=== PATIENT | male | born 1965 | race Caucasian/White ===

== ENCOUNTER 2024-08-08 10:00 | Emergency (ER) | payer MEDICARE, MEDICAID, SELFPAY ==
[2024-08-08] VITALS (15 sets, daily range): BP systolic 135–175; BP diastolic 59–89; PULSE 64–77; RESP 15–21; TEMP 36.6–37; O2SAT 93–100; BMI 43.6
[2024-08-08 10:27] LABS: Basophils % (Auto) 0 % (0-2.5); Eosinophils # (Auto) 0.1 Thou/mm3 (0.0-0.5); Eosinophils % (Auto) 2 % (0-10); Immature Granulocytes % (Auto) 0 % (0-0); Immature Granulocytes Auto 0.03 Thou/mm3 (0.00-0.00); Lymphocytes # (Auto) 0.7 Thou/mm3 (1.0-4.8); Lymphocytes % (Auto) 10 % (10-50); Mean Corpuscular HGB Conc 33.9 g/dl (31.0-37.0); Mean Corpuscular Hemoglobin 31.8 pg (25.0-35.0); Mean Corpuscular Volume 94 fL (80-100); Monocytes # (Auto) 0.4 Thou/mm3 (0.0-0.8); Monocytes % (Auto) 6 % (0-12); Neutrophils % (Auto) 82 % (37-80); Nucleated Red Blood Cell % 0 /100 WBC (0); Platelet Count 82 Thou/mm3 (140-440); Red Blood Count 2.01 Miln/mm3 (4.50-5.90); White Blood Count 7.3 Thou/mm3 (3.8-10.6)
[2024-08-08 10:53] LABS: Alanine Aminotransferase < 7 U/L (10-49); Albumin, Serum 3.7 gm/dL (3.5-5.0); Alkaline Phosphatase 95 U/L (46-116); Anion Gap 11 (7-16); Aspartate Amino Transferase < 8 U/L (0-34); BUN/Creatinine Ratio 8 Ratio (12-20); Bilirubin,Total 0.5 mg/dL (0.3-1.2); Blood Urea Nitrogen 62 mg/dL (9-23); Calcium 8.9 mg/dL (8.3-10.6); Calcium (Corrected) 9.1 mg/dL (8.5-10.1); Carbon Dioxide 24.2 mMol/L (20.0-31.0); Chloride 98 mMol/L (98-107); Creatinine (Component) 8.1 mg/dL (0.6-1.3); Estimated Creatinine Clearance 15.6 mL/min (>60); Globulin 3.8 gm/dL (2.3-3.5); Glucose 99 mg/dL (74-106); Osmolality,Calculated 283 (275-295); Potassium 5.1 mMol/L (3.4-5.1); Sodium 133 mMol/L (136-145); Total Protein 7.5 gm/dL (5.7-8.2); eGFR 7 See Note
[2024-08-08 10:59] LABS: Hematocrit 18.9 % (41.0-53.0)
[2024-08-08 11:00] LABS: Hemoglobin 6.4 g/dL (13.5-16.0)
--- NOTE | 2024-08-08 13:14 | EDNOTE_ITS ---
ED General RME/HPI General Chief complaint: General Adult/Misc Complain Stated complaint: NEEDS BLOOD TRANSFUSION Time Seen by Provider: 08/08/24 10:03 Arrival date/time: 08/08/24 10:00 RME / HPI RME / HPI narrative: 59-year-old male history of end-stage renal disease on dialysis Wednesdays and Fridays, who has weekly laboratory testing due to decreasing hemoglobins presenting to the emergency department with a need for a blood transfusion . His last blood tests at the end of last week showed a low hemoglobin therefore now he reports to the emergency department. He otherwise denies chest pain, shortness of breath. He denies generalized weakness. He states that Dr. oCtton has been watching his blood levels very closely and is requesting a status call during his visit today while he is getting transfused. He denies any active bleeding. He denies bloody or melanotic stools. He denies vomiting. Related Data Home Medications ?Medication ?Instructions ?Recorded ?Confirmed diphenhydramine HCl 25 mg capsule 25 mg PO TID PRN Itching 08/20/22 03/31/24 (Benadryl) vitamin B comp no.3-folic acid 1 1 tab PO QDAY 08/20/22 03/31/24 mg-vit C 60 mg-biotin 300 mcg tablet ([facility] Rx) sucroferric oxyhydroxide 500 mg 500 mg PO QID 10/03/22 03/31/24 chewable tablet (Velphoro) carvedilol 12.5 mg tablet 12.5 mg PO BID 08/04/23 03/31/24 furosemide 40 mg tablet 40 mg PO QDAY 08/04/23 03/31/24 levothyroxine 100 mcg tablet 112 mcg PO DAILY 08/04/23 03/31/24 Previous Rx's ?Medication ?Instructions ?Recorded vitamin B complex-vitamin C-folic 1 tab PO QDAY #30 tabs 01/11/23 acid 0.8 mg tablet (Mere-Martín) Allergies Allergy/AdvReac Type Severity Reaction Status Date / Time adhesive tape Allergy Severe Rash Verified 08/08/24 10:01 Review of Systems Review of Systems Systems Reviewed: All systems reviewed, normal except as documented ED Exam Narrative Physical exam: GENERAL APPEARANCE: AxOx4, generally well-appearing, no acute distress, pale HEENT: NC, AT. MMM. EOMI, clear conjunctiva, oropharynx clear. NECK: Supple without lymphadenopathy. No stiffness or restricted ROM. HEART: Normal rate and regular rhythm, normal S1/S1, no m/r/g LUNGS: CTAB, moving air well. No crackles or wheezes are heard. ABDOMEN: Soft, nontender, nondistended with good bowel sounds heard. BACK: No midline C/T/L spine pain or deformity, No CVAT, no obvious deformity. EXTREMITIES: Without cyanosis, clubbing or edema. MUSCULOSKELETAL: FROM of all major joints, no chest tenderness NEUROLOGICAL: Grossly nonfocal. Alert and oriented, moving all 4 extremities. CN not formally tested but appear grossly intact. Observed to ambulate with normal gait. Skin: Warm and dry without any rash. Course Quality Measures none Orders Category Date Time Status Insert IV NOW Care 08/08/24 10:04 Active Transfuse,blood/blood products NOW Care 08/08/24 12:02 Active CBC Stat Lab 08/08/24 10:10 Completed Comprehensive Metabolic Panel Stat Lab 08/08/24 10:10 Completed Type and Screen Stat Lab 08/08/24 10:10 Results prbc [Red Blood Cells] Stat Lab 08/08/24 10:10 Results Vital Signs Vital signs: Vital Signs Temperature 98.3 F 08/08/24 10:30 Pulse Rate 75 08/08/24 10:30 Respiratory Rate 19 08/08/24 10:30 Blood Pressure 140/60 H 08/08/24 10:30 Pulse Oximetry (%) 98 08/08/24 10:30 Oxygen Delivery Method Room Air 08/08/24 10:30 SpO2 98% on room air, not hypoxic MDM Patient data External records reviewed:: [facility] previous records Clinical information provided by:: patient Social determinants that could affect healthcare access:: none Patient has the following chronic illnesses:: End-stage renal disease How is presenting disease/condition affected by chronic disease/condition?: c aused by Evaluation data The following diagnostics were reviewed and interpreted by me:: lab results Lab and/or radiology exams considered but not ordered:: None Interpretation Summary: None Medications Medications considered but not ordered:: None Medication administrations:: None Consultations Consultation(s) initiated? (list below): Yes Consultation #1 (Physician, Specialty, Details): Nephrology, Dr. Cotton, case was discussed at length laboratory results. We agree to transfusing 2 units of PRBC for now. She will expand workup this week to include other testing for anemia. Time: 13:00 Diagnosis Differential Diagnosis ED Complaint MDM: Anemia chronic disease, anemia, end- stage renal disease Most likely diagnosis given after review of the tests above:: See below Admission Indicated Admission indicated?: not indicated Explain why admission is indicated or not indicated:: As per narrative Admission Request Was there a request for admission?: No Disposition Plan Disposition Plan: Discharge Discharge Attestation Discharge Attestation: The patient and all family members were given an opportunity to ask questions and understood the discharge instructions. Discharge instructions specifically effects, indications for sooner follow up or return to the emergency department, and the expected course of current diagnosis. Patient condition: Stable Medical Decision Making MDM Narrative MDM Narrative: Mr. Weaver is a clinically well-appearing gentleman, with stable vital signs, who has chronic anemia in the setting of end-stage renal disease. He has been requiring transfusions on a more regular basis these last several months including the last transfusion approximately 10 days ago. Today his hemoglobin was critically low at 6.4 and will require transfusion again. Case was discussed at length with his baby doctor who is also his primary care physician and agrees to 2 units of PRBCs, he will need to contact his dialysis center tomorrow in order to schedule dialysis as he will miss today's. Otherwise chemistries show no acute electrolyte abnormalities requiring a emergent dialysis. He is asymptomatic with normal oxygen saturation, and he is laying flat resting comfortably, there is no signs of fluid overload as well to require emergent dialysis. Patient was transfused 2 units PRBCs without event here in the emergency department now stabilizing him for outpatient follow-up. Differential Diagnosis Differential Diagnosis: Anemia chronic disease, anemia, end-stage renal disease Lab Data 08/08/24 10:10 08/08/24 10:10 Labs: Lab Results 08/08/24 Range/Units 10:10 WBC 7.3 (3.8-10.6) Thou/mm3 RBC 2.01 L (4.50-5.90) Miln/mm3 Hgb 6.4 L* (13.5-16.0) g/dL Hct 18.9 L* (41.0-53.0) % MCV 94 (80-100) fL MCH 31.8 (25.0-35.0) pg MCHC 33.9 (31.0-37.0) g/dl RDW Std Deviation 63.0 H (35.1-43.9) fL Plt Count 82 L (140-440) Thou/mm3 Neut % (Auto) 82 H (37-80) % Lymph % (Auto) 10 (10-50) % [place] % (Auto) 6 (0-12) % Eos % (Auto) 2 (0-10) % Baso % (Auto) 0 (0-2.5) % Neut # (Auto) 6.0 (1.8-7.7) Thou/mm3 Lymph # (Auto) 0.7 L (1.0-4.8) Thou/mm3 [place] # (Auto) 0.4 (0.0-0.8) Thou/mm3 Eos # (Auto) 0.1 (0.0-0.5) Thou/mm3 Baso # (Auto) 0.0 (0.0-0.2) Thou/mm3 Immature Gran # (Auto) 0.03 H (0.00-0.00) Thou/mm3 Absolute Nucleated RBC 0.00 (0.00-0.00) Thou/mm3 Immature Gran % 0 (0-0) % Nucleated RBC % 0 (0) /100 WBC Sodium 133 L (136-145) mMol/L Potassium 5.1 (3.4-5.1) mMol/L Chloride 98 (98-107) mMol/L Carbon Dioxide 24.2 (20.0-31.0) mMol/L Anion Gap 11 (7-16) BUN 62 H (9-23) mg/dL Creatinine 8.1 H* (0.6-1.3) mg/dL Estim Creat Clear Calc 15.6 L (>60) mL/min eGFR 7 L* (60 - ) See Note BUN/Creatinine Ratio 8 L (12-20) Ratio Glucose 99 (74-106) mg/dL Calculated Osmolality 283 (275-295) Calcium 8.9 (8.3-10.6) mg/dL Corrected Calcium 9.1 (8.5-10.1) mg/dL Total Bilirubin 0.5 (0.3-1.2) mg/dL AST < 8 (0-34) U/L ALT < 7 L (10-49) U/L Alkaline Phosphatase 95 (46-116) U/L Total Protein 7.5 (5.7-8.2) gm/dL Albumin 3.7 (3.5-5.0) gm/dL Globulin 3.8 H (2.3-3.5) gm/dL Albumin/Globulin Ratio 1.0 L (1.2-2.2) Blood Type O Positive Antibody Screen NEGATIVE Crossmatch See Detail Blood Bank Wristband ID Yes Critical Care Time Critical Care Time Critical Care Time: Yes Total Critical Care Time (min.): 35 Attestation: Excluding billable procedures for the rapid response, analysis, management, deliberation with specialist, treatment, and documentation to vent the very possible risk of cardiovascular and or metabolic decompensation and or . Discharge Plan Plan Patient Disposition: HOME (Self Care) Prescriptions/Referrals Prescriptions/Med Rec: No Action furosemide 40 mg Tablet 40 mg PO QDAY carvedilol 12.5 mg Tablet 12.5 mg PO BID Rx Instructions: must administer with a meal/food levothyroxine 100 mcg tablet 112 mcg PO DAILY diphenhydramine HCl [Benadryl] 25 mg Capsule 25 mg PO TID PRN (Reason: Itching) Mere-Martín Rx 1-60-300 mg-mg-mcg tablet 1 tab PO QDAY Patient Comments: TAKE 1 TABLET BY MOUTH DAILY Velphoro 500 mg tablet,chewable 500 mg PO QID Patient Comments: CHEW AND SWALLOW 1 TABLET BY MOUTH FOUR TIMES DAILY WITH FOOD Mere-Martín 0.8 mg Tablet 1 tab PO QDAY Qty: 30 0RF Referrals: Shad Cotton MD [Primary Care Provider] - In 1 week Problem List Clinical Impression: Anemia, ESRD on hemodialysis, Thrombocytopenia Patient/Caregiver Discharge Instructions Education Materials: ED Anemia Type Not Specified, ED Chronic Kidney Disease (CKD) Additional Instructions: Dr. Cotton would like you to contact your dialysis center tomorrow to squeeze you in for dialysis. From there you can continue your normal schedule dialysis as well on Thursday. You can return to the emergency department sooner if symptoms worsen or if you notice any new, concerning issues. Print Language: Frisian Stand Alone Forms: Bridget Award Info., Patient Portal Info Letter
== END 2024-08-08 21:05 | disposition home or self-care (01) ==
PROVIDERS: Nurse Practitioner Primary Care; Emergency Provider Emergency Medicine; PCP Internal Medicine
DX: N18.6 End stage renal disease (principal); D63.1 Anemia in chronic kidney disease; D69.6 Thrombocytopenia, unspecified; Z99.2 Dependence on renal dialysis
CPT/HCPCS: 36415; 36430; 80053; 85025; 85610; 85730; 86850; 86900; 86901; 86921; 86922; 99291; P9016

== ENCOUNTER 2024-08-25 19:35 | Emergency (ER) | payer MEDICARE, MEDICAID, SELFPAY ==
[2024-08-25 19:36] VITALS: BMI 40.4
--- NOTE | 2024-08-25 20:46 | PD.EDRME ---
Rapid Medical Screening Exam [facility] Arrival date/time: 08/25/24 19:35 59M with history of ESRD and hypothyroidism presents to ED needing blood transfusion. Outpatient Hgb was 5.8. Chief Complaint: Recheck/Abnormal Lab/Rx Vital signs: Vital Signs Temperature 98.4 F 08/25/24 20:49 Pulse Rate 70 08/25/24 20:49 Respiratory Rate 18 08/25/24 20:49 Blood Pressure 138/68 H 08/25/24 20:49 Pulse Oximetry (%) 96 08/25/24 20:49 Oxygen Delivery Method Room Air 08/25/24 20:49
[2024-08-25 20:49] VITALS: BP 138/68; PULSE 70; RESP 18; TEMP 36.9; O2SAT 96
[2024-08-25 21:18] LABS: Basophils % (Auto) 0 % (0-2.5); Eosinophils # (Auto) 0.1 Thou/mm3 (0.0-0.5); Eosinophils % (Auto) 3 % (0-10); Immature Granulocytes % (Auto) 0 % (0-0); Immature Granulocytes Auto 0.01 Thou/mm3 (0.00-0.00); Lymphocytes # (Auto) 1.1 Thou/mm3 (1.0-4.8); Lymphocytes % (Auto) 20 % (10-50); Mean Corpuscular HGB Conc 34.5 g/dl (31.0-37.0); Mean Corpuscular Volume 93 fL (80-100); Monocytes # (Auto) 0.3 Thou/mm3 (0.0-0.8); Monocytes % (Auto) 6 % (0-12); Neutrophils # (Auto) 3.7 Thou/mm3 (1.8-7.7); Neutrophils % (Auto) 70 % (37-80); Nucleated Red Blood Cell % 0 /100 WBC (0); Platelet Count 86 Thou/mm3 (140-440); RDW Standard Deviation 61.1 fL (35.1-43.9); Red Blood Count 1.78 Miln/mm3 (4.50-5.90); White Blood Count 5.2 Thou/mm3 (3.8-10.6)
[2024-08-25 21:45] LABS: Alanine Aminotransferase < 7 U/L (10-49); Albumin, Serum 3.8 gm/dL (3.5-5.0); Albumin/Globulin Ratio 1.1 (1.2-2.2); Alkaline Phosphatase 147 U/L (46-116); Anion Gap 8 (7-16); Aspartate Amino Transferase 10 U/L (0-34); BUN/Creatinine Ratio 6 Ratio (12-20); Bilirubin,Total 0.4 mg/dL (0.3-1.2); Blood Urea Nitrogen 28 mg/dL (9-23); Calcium 7.9 mg/dL (8.3-10.6); Calcium (Corrected) 8.1 mg/dL (8.5-10.1); Carbon Dioxide 32.3 mMol/L (20.0-31.0); Chloride 93 mMol/L (98-107); Creatinine (Component) 4.9 mg/dL (0.6-1.3); Estimated Creatinine Clearance 24.8 mL/min (>60); Globulin 3.6 gm/dL (2.3-3.5); Glucose 104 mg/dL (74-106); Osmolality,Calculated 271 (275-295); Sodium 133 mMol/L (136-145); Total Protein 7.4 gm/dL (5.7-8.2); eGFR 13 See Note
[2024-08-25 21:46] LABS: Hemoglobin 5.7 g/dL (13.5-16.0)
[2024-08-25 21:47] LABS: Hematocrit 16.5 % (41.0-53.0)
[2024-08-26] VITALS (21 sets, daily range): BP systolic 104–147; BP diastolic 48–72; PULSE 62–69; RESP 12–19; TEMP 2.6–37.1; O2SAT 92–100
--- NOTE | 2024-08-26 02:46 | PD.EDADULT ---
ED General RME/HPI General Chief complaint: Recheck/Abnormal Lab/Rx Stated complaint: abnormal labs, send by PCP Arrival date/time: 08/25/24 19:35 Limitations: no limitations RME / HPI RME / HPI narrative: 08/25/24 19:35 59M with history of ESRD and hypothyroidism presents to ED needing blood transfusion. Outpatient Hgb was 5.8. ------- Dr. Encinas's Main ED Evaluation: 59yo male with a history of ESRD on HD (M/W/F), chronic anemia Related Data Home Medications ?Medication ?Instructions ?Recorded ?Confirmed diphenhydramine HCl 25 mg capsule 25 mg PO TID PRN Itching 08/20/22 03/31/24 (Benadryl) vitamin B comp no.3-folic acid 1 1 tab PO QDAY 08/20/22 03/31/24 mg-vit C 60 mg-biotin 300 mcg tablet ([facility]re[facility] Rx) sucroferric oxyhydroxide 500 mg 500 mg PO QID 10/03/22 03/31/24 chewable tablet (Velphoro) carvedilol 12.5 mg tablet 12.5 mg PO BID 08/04/23 03/31/24 furosemide 40 mg tablet 40 mg PO QDAY 08/04/23 03/31/24 levothyroxine 100 mcg tablet 112 mcg PO DAILY 08/04/23 03/31/24 Previous Rx's ?Medication ?Instructions ?Recorded vitamin B complex-vitamin C-folic 1 tab PO QDAY #30 tabs 01/11/23 acid 0.8 mg tablet (Mree-Martín) Allergies Allergy/AdvReac Type Severity Reaction Status Date / Time adhesive tape Allergy Severe Rash Verified 08/08/24 10:01 Review of Systems Review of Systems Systems Reviewed: All systems reviewed, normal except as documented Past Medical History Past Medical History NEUROLOGIC: Positive Neurological Disorders and Peripheral Neuropathy; Negative Cerebrovascular Accident, Transient Ischemic Attacks (TIA), Dementia, Alzheimer's Disease, Parkinson's Disease, Brain Tumor, Meningitis, Seizures, Epilepsy, Multiple Sclerosis, Cerebral Palsy, Amyotrophic Lateral Sclerosis (ALS/Carmela Gehrig's), Guillain-[place] Syndrome, Spina Bifida, Paralysis, Fermin's Palsy, Subdural Hematoma, Migraine, Head Trauma, Spinal Cord Injury or Traumatic Brain Injury CARDIAC: Positive Cardiac Disorders and Hypotension; Negative Myocardial Infarction, Cardiac Arrhythmia, Atrial Fibrillation, Angina, Heart Murmur, Coronary Artery Disease, Atherosclerotic Heart Disease, Peripheral Vascular Disease, Hypercholesterolemia, Aneurysm, Congestive Heart Failure, Congenital Heart Disease, Valvular Heart Disease, Rheumatic Fever, Cardiomyopathy, Pericarditis, Cellulitis, Deep Vein Thrombosis, Hypertension or Varicose Veins RESPIRATORY: Positive Sleep Apnea; Negative Chronic Obstructive Pulmonary Disease (COPD), Asthma, Bronchitis, Emphysema, Pneumonia, Pulmonary Fibrosis, Cystic Fibrosis, Tuberculosis, Pulmonary Embolism or Pulmonary Edema GASTROINTESTINAL: Positive Gastrointestinal Disorders, Gastrointestinal Bleed, Ulcer and Obesity; Negative Hepatitis, Cirrhosis, Pancreatitis, Celiac Disease, Gall Bladder Disease, Esophageal Varices, Kc's Esophagus, Colitis, Ulcerative Colitis, Diverticulitis, Diverticulosis, Colorectal Cancer, Irritable Bowel, Crohn's Disease, Obstructive Bowel, Hiatal Hernia, Hemorrhoids or Gastroesophageal Reflux Disease GENITOURINARY: Positive Genitourinary Disorders, Renal Disease and Dialysis; Negative Kidney Stones, Polycystic Kidney Disease, Neurogenic Bladder, Inguinal Hernia, Prostate Cancer or Benign Prostatic Hyperplasia REPRODUCTIVE: Negative Breast Cancer, Genital Herpes, Gonorrhea, Syphilis or Testicular Cancer MUSCULOSKELETAL: Negative Musculoskeletal Disorders, Muscular Dystrophy, Myasthenia Gravis, Marfan's Syndrome, Bone Cancer, Arthritis, Rheumatoid Arthritis, Osteoporosis, Gout, Scoliosis, Carpal Tunnel Syndrome, Fibromyalgia, Fractures, Degenerative Joint Disease, Osteomyelitis or Poliovirus ENT: Negative Cataracts, Glaucoma, Blind, Retinal Detachment, Macular Degeneration, Ear Infection, Deafness, Head Trauma or Eye Prosthesis ENDOCRINE: Positive Endocrine Disorders; Negative Diabetes Mellitus Type 1, Diabetes Mellitus Type 2, Hypoglycemia, Óscar's Syndrome, Noble's Disease, Hyperthyroidism, Hypothyroidism, Parathyroid Disease, Pituitary Disease, Systemic Lupus Erythematosus, Syndrome of Inappropriate Antidiuretic Hormone (SIADH), Adrenal Disease or Graves' Disease HEMATOLOGIC: Positive Blood Disorders and Anemia; Negative Leukemia, Hemophilia, Thalassemia, Sickle Cell Disease or Clotting Problems PSYCHO/SOCIAL: Positive Depression and Anxiety; Negative Psychiatric Problems, Schizophrenia, Recreational Drug Use, Bipolar Disorder, Behavior Problems, Self-Mutilation, Attention Deficit Disorder, Attention Deficit Hyperactivity Disorder, Depression, Post Traumatic Stress Disorder or Eating Disorder OTHER HISTORY: Positive Blood Transfusions and Chicken Pox; Negative Hospitalization, Autoimmune Disease, Down Syndrome, Autism, Developmental Delay, Shingles, Falls, Blood Transfusion Reaction, Anesthesia Reactions, Organ Transplant, Chemotherapy, Radiation Therapy, Hyperbaric Therapy, MRSA, VRSA, Vancomycin-Resistant Enterococci, Human Immunodeficiency Virus (HIV), Measles, Mumps, Rubella (Chilean Measles), Pertussis, Clostridium Difficile, Cancer, Breast Cancer, Cervical Cancer, Colorectal Cancer, Lung Cancer, Ovarian Cancer, Prostate Cancer or Testicular Cancer Family History FAMILY HISTORY: Positive Family Psychiatric Problems and Family Respiratory Disorders; Negative Family Cardiac Disorders, Family Gastrointestinal Problems, Family Cancer, Family Surgery or Family Anesthesia Reaction Surgical History SURGICAL: Positive Tonsillectomy; Negative Cardiac Surgery, Open Heart Surgery, Coronary Artery Bypass Graft, Valve Replacement, Coronary Stent, Cardiac Catheterization, Pacemaker, Angiogram, Auto Implanted Cardiovert Defib, Carotid Endarterectomy, Endocrine Surgery, Thyroidectomy, Ear Surgery, Tympanostomy Tube, Eye Surgery, Nose Surgery, Oral Surgery, Adenoidectomy, Cochlear Implant, Corneal Transplant, Throat Surgery, Abdominal Surgery, Tracheostomy, Gastric Bypass Surgery, Gastrostomy, Bowel Surgery, Nephrectomy, Transurethral Resection, Joint Replacement, Amputation, Open Reduction Internal Fixation, Arthroscopy, Neurologic Surgery, Brain Shunt, Vasectomy or Organ Transplant Social History SMOKING STATUS: Never smoker ED Exam General Limitations: Present no limitations General appearance: Present alert and in no apparent distress Head Head exam: Present atraumatic Eye Eye exam: Present normal appearance, PERRL and EOMI ENT ENT exam: Present normal exam, normal oropharynx and mucous membranes moist Neck Neck exam: Present normal inspection, full ROM and trachea midline Chest Chest inspection: Present normal inspection and symmetric chest wall rise Respiratory Respiratory exam: Present normal lung sounds bilaterally Cardiovascular Cardiovascular exam: Present regular rate, normal rhythm and normal heart sounds Abdominal Exam Abdominal exam: Present soft and normal bowel sounds Extremities Exam Extremities exam: Present normal inspection and full ROM Back Exam Back exam: Present normal inspection and full ROM Neurological Exam Neurological exam: Present alert, oriented X3 and CN II-XII intact Psychiatric Psychiatric exam: Present normal affect and normal mood Skin Skin exam: Present warm, dry, intact and normal color Course Quality Measures none Orders Category Date Time Status Insert IV NOW Care 08/25/24 20:46 Active CBC Stat Lab 08/25/24 21:01 Completed CMP [Comprehensive Metabolic Panel] Stat Lab 08/25/24 21:01 Completed Type and Screen Stat Lab 08/25/24 21:01 Results prbc [Red Blood Cells] Stat Lab 08/25/24 21:01 Results Vital Signs Vital signs: Vital Signs Temperature 98.4 F 08/25/24 20:49 Pulse Rate 70 08/25/24 20:49 Respiratory Rate 18 08/25/24 20:49 Blood Pressure 138/68 H 08/25/24 20:49 Pulse Oximetry (%) 96 08/25/24 20:49 Oxygen Delivery Method Room Air 08/25/24 20:49 Pulse ox is 96% on room air, which is normal according to my interpretation. [facility] Patient data External records reviewed:: [facility] previous records (Per chart review, patient was seen here on 08/05/24 for anemia.) Clinical information provided by:: patient Social determinants that could affect healthcare access:: none Patient has the following chronic illnesses:: ESRD on HD (M/W/F) How is presenting disease/condition affected by chronic disease/condition?: caused by Evaluation data The following diagnostics were reviewed and interpreted by me:: lab results Lab and/or radiology exams considered but not ordered:: none Interpretation Summary: RBCs are low at 1.78, HnH is low at 5.7/16.5, Creatinine is elevated at 4.9, according to my interpretation. Medications Medications considered but not ordered:: none Medical Decision Making Lab Data 08/25/24 21:01 08/25/24 21:01 Labs: Lab Results 08/25/24 Range/Units 21:01 WBC 5.2 (3.8-10.6) Thou/mm3 RBC 1.78 L* (4.50-5.90) Miln/mm3 Hgb 5.7 L* (13.5-16.0) g/dL Hct 16.5 L* (41.0-53.0) % MCV 93 (80-100) fL MCH 32.0 (25.0-35.0) pg MCHC 34.5 (31.0-37.0) g/dl RDW Std Deviation 61.1 H (35.1-43.9) fL Plt Count 86 L (140-440) Thou/mm3 Neut % (Auto) 70 (37-80) % Lymph % (Auto) 20 (10-50) % [place] % (Auto) 6 (0-12) % Eos % (Auto) 3 (0-10) % Baso % (Auto) 0 (0-2.5) % Neut # (Auto) 3.7 (1.8-7.7) Thou/mm3 Lymph # (Auto) 1.1 (1.0-4.8) Thou/mm3 [place] # (Auto) 0.3 (0.0-0.8) Thou/mm3 Eos # (Auto) 0.1 (0.0-0.5) Thou/mm3 Baso # (Auto) 0.0 (0.0-0.2) Thou/mm3 Immature Gran # (Auto) 0.01 H (0.00-0.00) Thou/mm3 Absolute Nucleated RBC 0.00 (0.00-0.00) Thou/mm3 Immature Gran % 0 (0-0) % Nucleated RBC % 0 (0) /100 WBC Sodium 133 L (136-145) mMol/L Potassium 4.0 (3.4-5.1) mMol/L Chloride 93 L (98-107) mMol/L Carbon Dioxide 32.3 H (20.0-31.0) mMol/L Anion Gap 8 (7-16) BUN 28 H (9-23) mg/dL Creatinine 4.9 H* (0.6-1.3) mg/dL Estim Creat Clear Calc 24.8 L (>60) mL/min eGFR 13 L* (60 - ) See Note BUN/Creatinine Ratio 6 L (12-20) Ratio Glucose 104 (74-106) mg/dL Calculated Osmolality 271 L (275-295) Calcium 7.9 L (8.3-10.6) mg/dL Corrected Calcium 8.1 L (8.5-10.1) mg/dL Total Bilirubin 0.4 (0.3-1.2) mg/dL AST 10 (0-34) U/L ALT < 7 L (10-49) U/L Alkaline Phosphatase 147 H (46-116) U/L Total Protein 7.4 (5.7-8.2) gm/dL Albumin 3.8 (3.5-5.0) gm/dL Globulin 3.6 H (2.3-3.5) gm/dL Albumin/Globulin Ratio 1.1 L (1.2-2.2) Blood Type O Positive Antibody Screen NEGATIVE Crossmatch See Detail Blood Bank Wristband ID Yes Discharge Plan Prescriptions/Referrals Prescriptions/Med Rec: No Action furosemide 40 mg Tablet 40 mg PO QDAY carvedilol 12.5 mg Tablet 12.5 mg PO BID Rx Instructions: must administer with a meal/food levothyroxine 100 mcg tablet 112 mcg PO DAILY diphenhydramine HCl [Benadryl] 25 mg Capsule 25 mg PO TID PRN (Reason: Itching) Mere-Martín Rx 1-60-300 mg-mg-mcg tablet 1 tab PO QDAY Patient Comments: TAKE 1 TABLET BY MOUTH DAILY Velphoro 500 mg tablet,chewable 500 mg PO QID Patient Comments: CHEW AND SWALLOW 1 TABLET BY MOUTH FOUR TIMES DAILY WITH FOOD Mere-Martín 0.8 mg Tablet 1 tab PO QDAY Qty: 30 0RF Referrals: Shad Cotton MD [Primary Care Provider] - In 1 week Patient/Caregiver Discharge Instructions Print Language: [place] Islander
--- NOTE | 2024-08-26 03:49 | EDNOTE_ITS ---
ED Recheck Abnl Lab Rx-RME/HPI General Chief Complaint: Recheck/Abnormal Lab/Rx Stated Complaint: abnormal labs, send by PCP Time Seen by Provider: 08/26/24 03:50 Arrival date/time: 08/25/24 19:35 59M with history of ESRD and hypothyroidism presents to ED needing blood transfusion. Patient is well-known to get frequent transfusions here. Outpatient Hgb was 5.8. Limitations: no limitations Related Data Home Medications ?Medication ?Instructions ?Recorded ?Confirmed diphenhydramine HCl 25 mg capsule 25 mg PO TID PRN Itching 08/20/22 03/31/24 (Benadryl) vitamin B comp no.3-folic acid 1 1 tab PO QDAY 08/20/22 03/31/24 mg-vit C 60 mg-biotin 300 mcg tablet ([facility] Rx) sucroferric oxyhydroxide 500 mg 500 mg PO QID 10/03/22 03/31/24 chewable tablet (Velphoro) carvedilol 12.5 mg tablet 12.5 mg PO BID 08/04/23 03/31/24 furosemide 40 mg tablet 40 mg PO QDAY 08/04/23 03/31/24 levothyroxine 100 mcg tablet 112 mcg PO DAILY 08/04/23 03/31/24 Previous Rx's ?Medication ?Instructions ?Recorded vitamin B complex-vitamin C-folic 1 tab PO QDAY #30 tabs 01/11/23 acid 0.8 mg tablet (Mere-Martín) Allergies Allergy/AdvReac Type Severity Reaction Status Date / Time adhesive tape Allergy Severe Rash Verified 08/08/24 10:01 Review of Systems Review of Systems Systems Reviewed: All systems reviewed, normal except as documented Constitutional Constitutional: Reports system reviewed and no additional complaints, except as documented, Denies fever(s) and Denies headache(s) ENT Ears, Nose, Mouth, and Throat: Denies disequilibrium and Denies headache(s) Cardiovascular Cardiovascular: Reports system reviewed and no additional complaints, except as documented, Denies chest pain and Denies dyspnea Respiratory Respiratory: Reports system reviewed and no additional complaints, except as documented, Denies cough and Denies dyspnea Gastrointestinal Gastrointestinal: Reports system reviewed and no additional complaints, except as documented, Denies abdominal pain, Denies nausea and Denies vomiting Neurologic Neurologic: Reports system reviewed and no additional complaints, except as documented, Denies confusion, Denies disequilibrium and Denies headache(s) Psychiatric Psychiatric: Denies confusion Past Medical History Past Medical History NEUROLOGIC: Positive Neurological Disorders and Peripheral Neuropathy; Negative Cerebrovascular Accident, Transient Ischemic Attacks (TIA), Dementia, Alzheimer's Disease, Parkinson's Disease, Brain Tumor, Meningitis, Seizures, Epilepsy, Multiple Sclerosis, Cerebral Palsy, Amyotrophic Lateral Sclerosis (ALS/Carmela Gehrig's), Guillain-[place] Syndrome, Spina Bifida, Paralysis, Fermin's Palsy, Subdural Hematoma, Migraine, Head Trauma, Spinal Cord Injury or Traumatic Brain Injury CARDIAC: Positive Cardiac Disorders and Hypotension; Negative Myocardial Infarction, Cardiac Arrhythmia, Atrial Fibrillation, Angina, Heart Murmur, Coronary Artery Disease, Atherosclerotic Heart Disease, Peripheral Vascular Disease, Hypercholesterolemia, Aneurysm, Congestive Heart Failure, Congenital Heart Disease, Valvular Heart Disease, Rheumatic Fever, Cardiomyopathy, Pericarditis, Cellulitis, Deep Vein Thrombosis, Hypertension or Varicose Veins RESPIRATORY: Positive Sleep Apnea; Negative Chronic Obstructive Pulmonary Disease (COPD), Asthma, Bronchitis, Emphysema, Pneumonia, Pulmonary Fibrosis, Cystic Fibrosis, Tuberculosis, Pulmonary Embolism or Pulmonary Edema GASTROINTESTINAL: Positive Gastrointestinal Disorders, Gastrointestinal Bleed, Ulcer and Obesity; Negative Hepatitis, Cirrhosis, Pancreatitis, Celiac Disease, Gall Bladder Disease, Esophageal Varices, Kc's Esophagus, Colitis, Ulcerative Colitis, Diverticulitis, Diverticulosis, Colorectal Cancer, Irritable Bowel, Crohn's Disease, Obstructive Bowel, Hiatal Hernia, Hemorrhoids or Gastroesophageal Reflux Disease GENITOURINARY: Positive Genitourinary Disorders, Renal Disease and Dialysis; Negative Kidney Stones, Polycystic Kidney Disease, Neurogenic Bladder, Inguinal Hernia, Prostate Cancer or Benign Prostatic Hyperplasia REPRODUCTIVE: Negative Breast Cancer, Genital Herpes, Gonorrhea, Syphilis or Testicular Cancer MUSCULOSKELETAL: Negative Musculoskeletal Disorders, Muscular Dystrophy, Myasthenia Gravis, Marfan's Syndrome, Bone Cancer, Arthritis, Rheumatoid Arthritis, Osteoporosis, Gout, Scoliosis, Carpal Tunnel Syndrome, Fibromyalgia, Fractures, Degenerative Joint Disease, Osteomyelitis or Poliovirus ENT: Negative Cataracts, Glaucoma, Blind, Retinal Detachment, Macular Degeneration, Ear Infection, Deafness, Head Trauma or Eye Prosthesis ENDOCRINE: Positive Endocrine Disorders; Negative Diabetes Mellitus Type 1, Diabetes Mellitus Type 2, Hypoglycemia, [place]'s Syndrome, Antwon's Disease, Hyperthyroidism, Hypothyroidism, Parathyroid Disease, Pituitary Disease, Systemic Lupus Erythematosus, Syndrome of Inappropriate Antidiuretic Hormone (SIADH), Adrenal Disease or Graves' Disease HEMATOLOGIC: Positive Blood Disorders and Anemia; Negative Leukemia, Hemophilia, Thalassemia, Sickle Cell Disease or Clotting Problems PSYCHO/SOCIAL: Positive Depression and Anxiety; Negative Psychiatric Problems, Schizophrenia, Recreational Drug Use, Bipolar Disorder, Behavior Problems, Self-Mutilation, Attention Deficit Disorder, Attention Deficit Hyperactivity Disorder, Depression, Post Traumatic Stress Disorder or Eating Disorder OTHER HISTORY: Positive Blood Transfusions and Chicken Pox; Negative Hospitalization, Autoimmune Disease, Down Syndrome, Autism, Developmental Delay, Shingles, Falls, Blood Transfusion Reaction, Anesthesia Reactions, Organ Transplant, Chemotherapy, Radiation Therapy, Hyperbaric Therapy, MRSA, VRSA, Vancomycin-Resistant Enterococci, Human Immunodeficiency Virus (HIV), Measles, Mumps, Rubella (Macedonian Measles), Pertussis, Clostridium Difficile, Cancer, Breast Cancer, Cervical Cancer, Colorectal Cancer, Lung Cancer, Ovarian Cancer, Prostate Cancer or Testicular Cancer Family History FAMILY HISTORY: Positive Family Psychiatric Problems and Family Respiratory Disorders; Negative Family Cardiac Disorders, Family Gastrointestinal Problems, Family Cancer, Family Surgery or Family Anesthesia Reaction Surgical History SURGICAL: Positive Tonsillectomy; Negative Cardiac Surgery, Open Heart Surgery, Coronary Artery Bypass Graft, Valve Replacement, Coronary Stent, Cardiac Catheterization, Pacemaker, Angiogram, Auto Implanted Cardiovert Defib, Carotid Endarterectomy, Endocrine Surgery, Thyroidectomy, Ear Surgery, Tympanostomy Tube, Eye Surgery, Nose Surgery, Oral Surgery, Adenoidectomy, Cochlear Implant, Corneal Transplant, Throat Surgery, Abdominal Surgery, Tracheostomy, Gastric Bypass Surgery, Gastrostomy, Bowel Surgery, Nephrectomy, Transurethral Resection, Joint Replacement, Amputation, Open Reduction Internal Fixation, Arthroscopy, Neuro logic Surgery, Brain Shunt, Vasectomy or Organ Transplant Social History SMOKING STATUS: Never smoker ED Exam General Limitations: Present no limitations General appearance: Present alert and in no apparent distress Head Head exam: Present atraumatic Eye Eye exam: Present normal appearance, PERRL and EOMI ENT ENT exam: Present normal exam, normal oropharynx and mucous membranes moist Neck Neck exam: Present normal inspection, full ROM and trachea midline Chest Chest inspection: Present normal inspection and symmetric chest wall rise Respiratory Respiratory exam: Present normal lung sounds bilaterally Cardiovascular Cardiovascular exam: Present regular rate, normal rhythm and normal heart sounds Abdominal Exam Abdominal exam: Present soft and normal bowel sounds Extremities Exam Extremities exam: Present normal inspection and full ROM Back Exam Back exam: Present normal inspection and full ROM Neurological Exam Neurological exam: Present alert, oriented X3 and CN II-XII intact Psychiatric Psychiatric exam: Present normal affect and normal mood Skin Skin exam: Present warm, dry, intact and normal color Course Quality Measures none Orders Category Date Time Status Insert IV NOW Care 08/25/24 20:46 Active CBC Stat Lab 08/25/24 21:01 Completed CMP [Comprehensive Metabolic Panel] Stat Lab 08/25/24 21:01 Completed Type and Screen Stat Lab 08/25/24 21:01 Completed prbc [Red Blood Cells] Stat Lab 08/25/24 21:01 Completed Vital Signs Vital signs: Vital Signs Temperature 98.4 F 08/25/24 20:49 Pulse Rate 70 08/25/24 20:49 Respiratory Rate 18 08/25/24 20:49 Blood Pressure 138/68 H 08/25/24 20:49 Pulse Oximetry (%) 96 08/25/24 20:49 Oxygen Delivery Method Room Air 08/25/24 20:49 O2 at 96% on RA and WNLs Recheck / Abnormal Lab / Rx MDM Narrative MDM Narrative:: 59M with history of ESRD and hypothyroidism presents to ED needing blood transfusion. Patient is well-known to get frequent transfusions here. Outpatient Hgb was 5.8. Physical exam reveals clear lungs and RRR. Patient is afebrile, calm, and alert. Hgb 5.7. 2 units given w/o issue. Patient data External records reviewed:: [facility] previous records Clinical information provided by:: patient Social determinants that could affect healthcare access:: none Patient has the following chronic illnesses:: ESRD and hypothyroidism How is presenting disease/condition affected by chronic disease/condition?: caused by Evaluation data The following diagnostics were reviewed and interpreted by me:: lab results Lab and/or radiology exams considered but not ordered:: ordered Interpretation Summary: above Medications / Prescriptions Medications or Prescriptions considered but not ordered:: ordered Medication administrations:: above Consultations Consultation(s) initiated? (list below): No Diagnosis Recheck Differential Diagnosis: encounter for medication refill, encounter for wound recheck, encounter for recheck of burn, encounter for removal of sutures, warfarin-induced coagulopathy and other (anemia) Most likely diagnosis given after review of the tests above:: anemia Admission Indicated Admission indicated?: not indicated Admission Request Was there a request for admission?: No Disposition Plan Disposition Plan: Discharge Discharge Attestation Discharge Attestation: The patient and all family members were given an opportunity to ask questions and understood the discharge instructions. Discharge instructions specifically effects, indications for sooner follow up or return to the emergency department, and the expected course of current diagnosis. Patient condition: Stable Discharge Plan Plan Patient Disposition: HOME (Self Care) Disposition Comment: Stable Prescriptions/Referrals Prescriptions/Med Rec: No Action furosemide 40 mg Tablet 40 mg PO QDAY carvedilol 12.5 mg Tablet 12.5 mg PO BID Rx Instructions: must administer with a meal/food levothyroxine 100 mcg tablet 112 mcg PO DAILY diphenhydramine HCl [Benadryl] 25 mg Capsule 25 mg PO TID PRN (Reason: Itching) Mere-[facility] Rx 1-60-300 mg-mg-mcg tablet 1 tab PO QDAY Patient Comments: TAKE 1 TABLET BY MOUTH DAILY Velphoro 500 mg tablet,chewable 500 mg PO QID Patient Comments: CHEW AND SWALLOW 1 TABLET BY MOUTH FOUR TIMES DAILY WITH FOOD Mere-Martín 0.8 mg Tablet 1 tab PO QDAY Qty: 30 0RF Referrals: Shad Cotton MD [Primary Care Provider] - In 1 week Problem List Clinical Impression: Anemia Patient/Caregiver Discharge Instructions Additional Instructions: Please follow-up with PCP within 24-48 hours and return immediately if symptoms worsen. Print Language: [place] Island[place] Stand Alone Forms: Patient Portal Info Letter ALEKSANDR/VINCENT Supervising Physician ABDIRASHID Supervising Physician: Dr. Perez
== END 2024-08-26 06:26 | disposition home or self-care (01) ==
PROVIDERS: Physician Assistant; Emergency Provider Emergency Medicine; PCP Internal Medicine
DX: N18.6 End stage renal disease (principal); D63.1 Anemia in chronic kidney disease; Z99.2 Dependence on renal dialysis
CPT/HCPCS: 36415; 36430; 80053; 85025; 86850; 86900; 86901; 86921; 86922; 99285; P9016

== ENCOUNTER 2024-09-03 11:27 | Emergency (ER) | payer MEDICARE, MEDICAID, SELFPAY ==
[2024-09-03] VITALS (22 sets, daily range): BP systolic 115–186; BP diastolic 49–87; PULSE 66–97; RESP 14–30; TEMP 36.3–36.9; O2SAT 36–100; BMI 44.9
--- NOTE | 2024-09-03 11:40 | PD.EDRME ---
Rapid Medical Screening Exam RME Arrival date/time: 09/03/24 11:27 Chief Complaint: General Adult/Misc Complain Time Seen by Provider: 09/03/24 11:31 Vital signs: Vital Signs Temperature 98.4 F 09/03/24 11:45 Pulse Rate 97 09/03/24 11:45 Respiratory Rate 19 09/03/24 11:45 Blood Pressure 151/49 H 09/03/24 11:45 Pulse Oximetry (%) 99 09/03/24 11:45 Oxygen Delivery Method Room Air 09/03/24 11:45 RME Narrative: sent to ED for blood transfusion, hemoglobin 6.1 on Thursday. Hx anemia and ESRD on HD. Last transfusion 08/26/2024. Patient c/o mild fatigue.
--- NOTE | 2024-09-03 12:02 | EDNOTE_ITS ---
<Statement entered by Mary Lou Stevens MD - 09/14/24 17:38> As co-signing physician, I was present and available for consult prn. I concur with the plan and care as documented by the midlevel provider. ED General RME/HPI General Chief complaint: General Adult/Misc Complain Stated complaint: NEED BLOOD TRANSFUSION Time Seen by Provider: 09/03/24 11:31 Arrival date/time: 09/03/24 11:27 RME / HPI RME / HPI narrative: 59-year-old male patient with significant history of ESRD, chronic anemia, hypertension, came in for evaluation regarding request for blood transfusion. Last hemodialysis was last Thursday, postdialysis patient was noted to have hemoglobin of 6.1, learned yesterday. He had no dialysis yesterday due to anemia. Currently patient complaint is generalized body weakness and getting tired so easily. No vomiting blood no blood in the stool denies any shortness of breath. Related Data Home Medications ?Medication ?Instructions ?Recorded ?Confirmed diphenhydramine HCl 25 mg capsule 25 mg PO TID PRN Itching 08/20/22 03/31/24 (Benadryl) vitamin B comp no.3-folic acid 1 1 tab PO QDAY 08/20/22 03/31/24 mg-vit C 60 mg-biotin 300 mcg tablet ([facility] Rx) sucroferric oxyhydroxide 500 mg 500 mg PO QID 10/03/22 03/31/24 chewable tablet (Velphoro) carvedilol 12.5 mg tablet 12.5 mg PO BID 08/04/23 03/31/24 furosemide 40 mg tablet 40 mg PO QDAY 08/04/23 03/31/24 levothyroxine 100 mcg tablet 112 mcg PO DAILY 08/04/23 03/31/24 Previous Rx's ?Medication ?Instructions ?Recorded vitamin B complex-vitamin C-folic 1 tab PO QDAY #30 tabs 01/11/23 acid 0.8 mg tablet (Mere-Martín) Allergies Allergy/AdvReac Type Severity Reaction Status Date / Time adhesive tape Allergy Severe Rash Verified 09/03/24 11:30 Review of Systems Review of Systems Narrative Review of Systems: Review of system reviewed and within normal limits except mentioned in HPI ED Exam Narrative Physical exam: VITAL SIGNS: Reviewed. GENERAL APPEARANCE: Alert and interactive, follows commands, no acute distress, HEAD AND FACE: Non-traumatic. ENT: PERRL, pale conjunctiva, eyelid no trauma, Mucous membrane moist. NECK: Supple, nontender, no nuchal rigidity. CHEST: No tenderness, no crepitus, no paradoxical movement, no retractions. LUNGS: Clear, well ventilated, symmetric, no rales, no wheezing, no ronchi, no stridor, good breath sounds bilaterally. HEART: Regular rate, regular rhythm, no murmur, no gallops. ABDOMEN: Soft, positive bowel sounds, nondistended, no guarding, nontender, no rebound, no masses, RECTAL: Deferred. GENITAL: Deferred. NEUROLOGICAL: Gross motor function intact sensory function intact, Appropriate for age. MUSCULOSKELETAL: low back nontender, full range of motion. EXTREMITIES: Nontender, full range of motion. + +2 bilateral lower extremity edema SKIN: Color pale, dry, no rash, no lacerations, no abrasions, no contusions. LYMPHATICS: Deferred. Course Quality Measures none Orders Category Date Time Status Transfuse,blood/blood products ONCE Care 09/03/24 12:02 Active CBC Stat Lab 09/03/24 11:56 Completed CMP [Comprehensive Metabolic Panel] Stat Lab 09/03/24 11:56 Completed PTT [Partial Thromboplastin Time] Stat Lab 09/03/24 11:56 Completed Path Review Blood Smear Stat Lab 09/03/24 11:56 Completed Prothrombin Time with INR Stat Lab 09/03/24 11:56 Completed Type and Screen Stat Lab 09/03/24 11:56 Completed prbc [Red Blood Cells] Stat Lab 09/03/24 11:56 Completed Vital Signs Vital signs: Vital Signs Temperature 98.4 F 09/03/24 11:45 Pulse Rate 97 09/03/24 11:45 Respiratory Rate 19 09/03/24 11:45 Blood Pressure 151/49 H 09/03/24 11:45 Pulse Oximetry (%) 99 09/03/24 11:45 Oxygen Delivery Method Room Air 09/03/24 11:45 [facility] Patient data External records reviewed:: None Clinical information provided by:: patient Social determinants that could affect healthcare access:: none Patient has the following chronic illnesses:: ESRD, chronic anemia How is presenting disease/condition affected by chronic disease/condition?: e xacerbated by Evaluation data The following diagnostics were reviewed and interpreted by me:: lab results Lab and/or radiology exams considered but not ordered:: None Interpretation Summary: Patient is hemoglobin today was noted to be 6.1. CMP significant for CKD potassium was noted to be normal Medications Medications considered but not ordered:: None Medication administrations:: Patient received 3 units of packed RBC with no complication noted. Consultations Consultation(s) initiated? (list below): No Diagnosis Differential Diagnosis ED Complaint MDM: Anemia, ESRD anemia of chronic disease Most likely diagnosis given after review of the tests above:: Anemia Admission Indicated Admission indicated?: not indicated Explain why admission is indicated or not indicated:: Stable Admission Request Was there a request for admission?: No Disposition Plan Disposition Plan: Discharge Discharge Attestation Discharge Attestation: The patient was given an opportunity to ask questions and understood the discharge instructions. Discharge instructions specifically effects, indications for sooner follow up or return to the emergency department, and the expected course of current diagnosis. Patient condition: Stable Medical Decision Making Differential Diagnosis Differential Diagnosis: Anemia, ESRD anemia of chronic disease Lab Data 09/03/24 11:56 09/03/24 11:56 Labs: Lab Results 09/03/24 Range/Units 11:56 WBC 5.7 (3.8-10.6) Thou/mm3 RBC 1.98 L* (4.50-5.90) Miln/mm3 Hgb 6.1 L* (13.5-16.0) g/dL Hct 18.5 L* (41.0-53.0) % MCV 93 (80-100) fL MCH 30.8 (25.0-35.0) pg MCHC 33.0 (31.0-37.0) g/dl RDW Std Deviation 58.4 H (35.1-43.9) fL Plt Count 86 L (140-440) Thou/mm3 Neut % (Auto) 78 (37-80) % Lymph % (Auto) 12 (10-50) % [place] % (Auto) 6 (0-12) % Eos % (Auto) 3 (0-10) % Baso % (Auto) 0 (0-2.5) % Neut # (Auto) 4.5 (1.8-7.7) Thou/mm3 Lymph # (Auto) 0.7 L (1.0-4.8) Thou/mm3 [place] # (Auto) 0.4 (0.0-0.8) Thou/mm3 Eos # (Auto) 0.2 (0.0-0.5) Thou/mm3 Baso # (Auto) 0.0 (0.0-0.2) Thou/mm3 Immature Gran # (Auto) 0.01 H (0.00-0.00) Thou/mm3 Absolute Nucleated RBC 0.00 (0.00-0.00) Thou/mm3 Immature Gran % 0 (0-0) % Nucleated RBC % 0 (0) /100 WBC Smear Path Review Sent to Pathologist PT 13.0 H (9.0-12.2) Seconds INR 1.2 (0.9-1.3) APTT 34.2 (22.0-36.0) Seconds Sodium 133 L (136-145) mMol/L Potassium 3.8 (3.4-5.1) mMol/L Chloride 94 L (98-107) mMol/L Carbon Dioxide 29.8 (20.0-31.0) mMol/L Anion Gap 9 (7-16) BUN 43 H (9-23) mg/dL Creatinine 6.8 H* (0.6-1.3) mg/dL Estim Creat Clear Calc 18.9 L (>60) mL/min eGFR 9 L* (60 - ) See Note BUN/Creatinine Ratio 6 L (12-20) Ratio Glucose 93 (74-106) mg/dL Calculated Osmolality 277 (275-295) Calcium 8.0 L (8.3-10.6) mg/dL Corrected Calcium 8.2 L (8.5-10.1) mg/dL Total Bilirubin 0.4 (0.3-1.2) mg/dL AST < 10 (0-34) U/L ALT < 7 L (10-49) U/L Alkaline Phosphatase 110 (46-116) U/L Total Protein 7.4 (5.7-8.2) gm/dL Albumin 3.8 (3.5-5.0) gm/dL Globulin 3.6 H (2.3-3.5) gm/dL Albumin/Globulin Ratio 1.1 L (1.2-2.2) Blood Type O Positive Antibody Screen NEGATIVE Crossmatch See Detail Blood Bank Wristband ID Yes Discharge Plan Plan Patient Disposition: HOME (Self Care) Disposition Comment: Stable Prescriptions/Referrals Prescriptions/Med Rec: No Action furosemide 40 mg Tablet 40 mg PO QDAY carvedilol 12.5 mg Tablet 12.5 mg PO BID Rx Instructions: must administer with a meal/food levothyroxine 100 mcg tablet 112 mcg PO DAILY diphenhydramine HCl [Benadryl] 25 mg Capsule 25 mg PO TID PRN (Reason: Itching) Mere-[facility] Rx 1-60-300 mg-mg-mcg tablet 1 tab PO QDAY Patient Comments: TAKE 1 TABLET BY MOUTH DAILY Velphoro 500 mg tablet,chewable 500 mg PO QID Patient Comments: CHEW AND SWALLOW 1 TABLET BY MOUTH FOUR TIMES DAILY WITH FOOD Mere-Martín 0.8 mg Tablet 1 tab PO QDAY Qty: 30 0RF Referrals: Shad Cotton MD [Primary Care Provider] - In 1 week Problem List Clinical Impression: Anemia, ESRD on hemodialysis Patient/Caregiver Discharge Instructions Discharge Activity: activity as tolerated Education Materials: Anemia Additional Instructions: Thank you for the opportunity for serving you today. You are stable for discharged . You are advised to: Follow-up with your PCP in 1 to 2 days Return to ED for worsening of symptoms Print Language: Azeri Stand Alone Forms: Bridget Award Info., Patient Portal Info Letter PA/VINCENT Supervising Physician ALEKSANDR/VINCENT Supervising Physician: MD Angella
[2024-09-03 12:11] LABS: Basophils % (Auto) 0 % (0-2.5); Eosinophils # (Auto) 0.2 Thou/mm3 (0.0-0.5); Eosinophils % (Auto) 3 % (0-10); Immature Granulocytes % (Auto) 0 % (0-0); Immature Granulocytes Auto 0.01 Thou/mm3 (0.00-0.00); Lymphocytes # (Auto) 0.7 Thou/mm3 (1.0-4.8); Lymphocytes % (Auto) 12 % (10-50); Mean Corpuscular Hemoglobin 30.8 pg (25.0-35.0); Mean Corpuscular Volume 93 fL (80-100); Monocytes # (Auto) 0.4 Thou/mm3 (0.0-0.8); Monocytes % (Auto) 6 % (0-12); Neutrophils # (Auto) 4.5 Thou/mm3 (1.8-7.7); Neutrophils % (Auto) 78 % (37-80); Nucleated Red Blood Cell % 0 /100 WBC (0); Platelet Count 86 Thou/mm3 (140-440); RDW Standard Deviation 58.4 fL (35.1-43.9); Red Blood Count 1.98 Miln/mm3 (4.50-5.90); White Blood Count 5.7 Thou/mm3 (3.8-10.6)
[2024-09-03 12:19] LABS: Hemoglobin 6.1 g/dL (13.5-16.0)
[2024-09-03 12:20] LABS: Hematocrit 18.5 % (41.0-53.0)
[2024-09-03 12:31] LABS: INR 1.2 (0.9-1.3); Partial Thromboplastin Time 34.2 Seconds (22.0-36.0)
[2024-09-03 12:48] LABS: Alanine Aminotransferase < 7 U/L (10-49); Albumin, Serum 3.8 gm/dL (3.5-5.0); Albumin/Globulin Ratio 1.1 (1.2-2.2); Alkaline Phosphatase 110 U/L (46-116); Anion Gap 9 (7-16); Aspartate Amino Transferase < 10 U/L (0-34); BUN/Creatinine Ratio 6 Ratio (12-20); Bilirubin,Total 0.4 mg/dL (0.3-1.2); Blood Urea Nitrogen 43 mg/dL (9-23); Calcium (Corrected) 8.2 mg/dL (8.5-10.1); Carbon Dioxide 29.8 mMol/L (20.0-31.0); Chloride 94 mMol/L (98-107); Creatinine (Component) 6.8 mg/dL (0.6-1.3); Estimated Creatinine Clearance 18.9 mL/min (>60); Globulin 3.6 gm/dL (2.3-3.5); Glucose 93 mg/dL (74-106); Osmolality,Calculated 277 (275-295); Potassium 3.8 mMol/L (3.4-5.1); Sodium 133 mMol/L (136-145); Total Protein 7.4 gm/dL (5.7-8.2); eGFR 9 See Note
--- NOTE | 2024-09-03 14:40 | PC.NURSE ---
KALIE; per EMS report, pt coming from work. Pt works at [employer]. Pt from [place] but here for work. Pt c/o SOB with chest pain upon inspiration. Pt has hx of COPD and takes adderall for ADHD. Around 1315, pt was coming down off of his truck when he got SOB and lost his balance; pt was caught by his coworker and placed on the ground. Pt exhibiting wheezing for lung sounds and given 5mg of albuterol neb en route. Pt is a heavy smoker and pt also states that he was recently getting over strep throat. Pt connected to monitors at this time.
[2024-09-03 16:50] LABS: Path Review Blood Smear Sent to Pathologist
== END 2024-09-03 22:02 | disposition home or self-care (01) ==
PROVIDERS: Physician Assistant; Emergency Provider Emergency Medicine; PCP Internal Medicine
DX: I12.0 Hypertensive chronic kidney disease with stage 5 chronic kidney disease or end stage renal disease (principal); N18.6 End stage renal disease; D63.1 Anemia in chronic kidney disease
CPT/HCPCS: 36415; 36430; 80053; 85025; 85610; 85730; 86850; 86900; 86901; 86921; 86922; 99285; P9016

== ENCOUNTER 2024-09-23 10:11 | Emergency (ER) | payer MEDICARE, MEDICAID, SELFPAY ==
[2024-09-23] VITALS (15 sets, daily range): BP systolic 130–162; BP diastolic 62–89; PULSE 57–76; RESP 18–20; TEMP 36.6–37.1; O2SAT 94–99; BMI 42.4
--- NOTE | 2024-09-23 10:43 | PD.EDRME ---
Rapid Medical Screening Exam E Arrival date/time: 09/23/24 10:11 59-year-old male with a history of hypertension, type 2 diabetes on dialysis, chronic anemia presents to the emergency room with a chief complaint of weakness and fatigue. Patient states he needs a blood transfusion for his chronic anemia. Patient denies any bleeding. I have greeted and performed a focused initial assessment of this patient. A comprehensive ED assessment and evaluation of the patient, analysis of all test results, and completion of the medical decision making process will be conducted by additional ED providers. Chief Complaint: General Adult/Misc Complain Time Seen by Provider: 09/23/24 10:19 Vital signs: Vital Signs Temperature 98.4 F 09/23/24 10:41 Pulse Rate 76 09/23/24 10:41 Respiratory Rate 20 09/23/24 10:41 Blood Pressure 145/64 H 09/23/24 10:41 Pulse Oximetry (%) 95 09/23/24 10:41 Oxygen Delivery Method Room Air 09/23/24 10:41 Vital signs reviewed by provider: Yes
[2024-09-23 11:14] LABS: Basophils % (Auto) 0 % (0-2.5); Eosinophils # (Auto) 0.1 Thou/mm3 (0.0-0.5); Eosinophils % (Auto) 2 % (0-10); Immature Granulocytes % (Auto) 1 % (0-0); Immature Granulocytes Auto 0.06 Thou/mm3 (0.00-0.00); Lymphocytes # (Auto) 0.9 Thou/mm3 (1.0-4.8); Lymphocytes % (Auto) 11 % (10-50); Mean Corpuscular HGB Conc 33.3 g/dl (31.0-37.0); Mean Corpuscular Hemoglobin 31.4 pg (25.0-35.0); Mean Corpuscular Volume 94 fL (80-100); Monocytes # (Auto) 0.7 Thou/mm3 (0.0-0.8); Monocytes % (Auto) 9 % (0-12); Neutrophils % (Auto) 77 % (37-80); Nucleated Red Blood Cell % 0 /100 WBC (0); Platelet Count 118 Thou/mm3 (140-440); RDW Standard Deviation 62.5 fL (35.1-43.9); Red Blood Count 1.59 Miln/mm3 (4.50-5.90); White Blood Count 7.8 Thou/mm3 (3.8-10.6)
[2024-09-23 11:28] LABS: INR 1.5 (0.9-1.3); Partial Thromboplastin Time 32.9 Seconds (22.0-36.0); Prothrombin Time 16.1 Seconds (9.0-12.2)
[2024-09-23 12:21] LABS: Alanine Aminotransferase 8 U/L (10-49); Albumin, Serum 3.5 gm/dL (3.5-5.0); Alkaline Phosphatase 133 U/L (46-116); Anion Gap 13 (7-16); Aspartate Amino Transferase 12 U/L (0-34); BUN/Creatinine Ratio 7 Ratio (12-20); Bilirubin,Total 0.5 mg/dL (0.3-1.2); Blood Urea Nitrogen 49 mg/dL (9-23); Calcium 7.2 mg/dL (8.3-10.6); Calcium (Corrected) 7.6 mg/dL (8.5-10.1); Carbon Dioxide 26.9 mMol/L (20.0-31.0); Chloride 93 mMol/L (98-107); Creatinine (Component) 6.9 mg/dL (0.6-1.3); Globulin 3.6 gm/dL (2.3-3.5); Glucose 71 mg/dL (74-106); Osmolality,Calculated 277 (275-295); Potassium 4.3 mMol/L (3.4-5.1); Sodium 133 mMol/L (136-145); Total Protein 7.1 gm/dL (5.7-8.2); eGFR 9 See Note
--- NOTE | 2024-09-23 14:10 | EDNOTE_ITS ---
ED Weakness RME/HPI General Chief complaint: General Adult/Misc Complain Stated complaint: NEEDS TRANSFUSION Time Seen by Provider: 09/23/24 10:19 Arrival date/time: 09/23/24 10:11 RME / HPI RME / HPI Narrative: 09/23/24 10:11 59-year-old male with a history of hypertension, type 2 diabetes on dialysis, chronic anemia presents to the emergency room with a chief complaint of weakness and fatigue. Patient states he needs a blood transfusion for his chronic anemia. Patient denies any bleeding. I have greeted and performed a focused initial assessment of this patient. A comprehensive ED assessment and evaluation of the patient, analysis of all test results, and completion of the medical decision making process will be conducted by additional ED providers. DR. STEPHENS MAIN ED EVALUATION: 59 year old male presents to the Emergency Department with complaint of generalized weakness/ fatigue. Symptoms are moderate. Patient here for a blood transfusion. Patient denies any bleeding anywhere or any other symptoms at this time. PMHx: ESRD, chronic anemia, hypertension, type 2 diabetes. Social Hx: No tobacco, alcohol, or substance use. Related Data Home Medications ?Medication ?Instructions ?Recorded ?Confirmed diphenhydramine HCl 25 mg capsule 25 mg PO TID PRN Itching 08/20/22 03/31/24 (Benadryl) vitamin B comp no.3-folic acid 1 1 tab PO QDAY 08/20/22 03/31/24 mg-vit C 60 mg-biotin 300 mcg tablet (Mere[facility] Rx) sucroferric oxyhydroxide 500 mg 500 mg PO QID 10/03/22 03/31/24 chewable tablet (Velphoro) carvedilol 12.5 mg tablet 12.5 mg PO BID 08/04/23 03/31/24 furosemide 40 mg tablet 40 mg PO QDAY 08/04/23 03/31/24 levothyroxine 100 mcg tablet 112 mcg PO DAILY 08/04/23 03/31/24 Previous Rx's ?Medication ?Instructions ?Recorded vitamin B complex-vitamin C-folic 1 tab PO QDAY #30 tabs 01/11/23 acid 0.8 mg tablet (Mere-Martín) Allergies Allergy/AdvReac Type Severity Reaction Status Date / Time adhesive tape Allergy Severe Rash Verified 09/23/24 10:13 Review of Systems Review of Systems Systems Reviewed: All systems reviewed, normal except as documented Narrative Review of Systems: GEN: No fever, no chills, no weight loss EYES: No discharge, no visual changes, no pain HEENT: No ear pain, no congestion, no sore throat PULM: No shortness of breath, no cough, no congestion CV: No chest pain, no dyspnea on exertion, no palpitations GI: No nausea, no vomiting, no diarrhea, no pain, no constipation : No frequency, no urgency and no dysuria MUSC/SKEL: No joint pain, no back pain SKIN: No rash PSYCH: No hallucinations, no depression HEME/LYMPH: No easy bleeding or bruising tendencies NEURO: + generalized weakness/ fatigue, no headache Past Medical History Past Medical History NEUROLOGIC: Positive Neurological Disorders and Peripheral Neuropathy CARDIAC: Positive Cardiac Disorders, Hypertension and Hypotension RESPIRATORY: Positive Sleep Apnea GASTROINTESTINAL: Positive Gastrointestinal Disorders, Gastrointestinal Bleed, Ulcer and Obesity GENITOURINARY: Positive Genitourinary Disorders, Renal Disease and Dialysis ENDOCRINE: Positive Endocrine Disorders HEMATOLOGIC: Positive Blood Disorders and Anemia PSYCHO/SOCIAL: Positive Depression and Anxiety OTHER HISTORY: Positive Chicken Pox Family History FAMILY HISTORY: Positive Family Psychiatric Problems and Family Respiratory Disorders; Negative Family Cardiac Disorders, Family Gastrointestinal Problems, Family Cancer, Family Surgery or Family Anesthesia Reaction Surgical History SURGICAL: Positive Tonsillectomy; Negative Cardiac Surgery, Open Heart Surgery, Coronary Artery Bypass Graft, Valve Replacement, Coronary Stent, Cardiac Catheterization, Pacemaker, Angiogram, Auto Implanted Cardiovert Defib, Carotid Endarterectomy, Endocrine Surgery, Thyroidectomy, Ear Surgery, Tympanostomy Tube, Eye Surgery, Nose Surgery, Oral Surgery, Adenoidectomy, Cochlear Implant, Corneal Transplant, Throat Surgery, Abdominal Surgery, Tracheostomy, Gastric Bypass Surgery, Gastrostomy, Bowel Surgery, Nephrectomy, Transurethral Resection, Joint Replacement, Amputation, Open Reduction Internal Fixation, Arthroscopy, Neurologic Surgery, Brain Shunt or Vasectomy Social History SMOKING STATUS: Never smoker ED Exam Narrative Physical exam: GENERAL APPEARANCE: alert and oriented x 4, well-developed, well-nourished, no acute distress. Patient looks pale. VITALS: All vitals were reviewed and the pulse ox is 96% on room air, which is normal according to my interpretation. HEENT: Normocephalic, atraumatic; pupils equal, round, reactive to light; EOMI; mucous membranes pink, moist; oropharynx clear NECK: Supple LUNGS: CTABL; no wheezes, no rales, no rhonchi HEART: Regular rate, regular rhythm; normal S1, S2; no murmurs ABDOMEN: non distended; normal BS; soft, no tenderness, no guarding, no rebound; no masses, no organomegaly, no hernia BACK: no CVA tenderness EXTREMITIES: atraumatic; no edema NEUROLOGIC: awake; alert and oriented x4; cranial nerves II-XII grossly intact; no focal sensory or motor deficits PSYCHIATRIC: appropriate mood and affect SKIN: warm, dry, normal color; no rashes Course Quality Measures none Orders Category Date Time Status Insert IV NOW Care 09/23/24 13:00 Completed Transfuse,blood/blood products NOW Care 09/23/24 13:07 Completed Antibody Identification Stat Lab 09/23/24 10:52 Completed CBC Stat Lab 09/23/24 10:52 Completed CMP [Comprehensive Metabolic Panel] Stat Lab 09/23/24 10:52 Completed PT [Prothrombin Time with INR] Stat Lab 09/23/24 10:52 Completed PTT [Partial Thromboplastin Time] Stat Lab 09/23/24 10:52 Completed Red Blood Cells Stat Lab 09/23/24 10:52 Completed Type and Screen Stat Lab 09/23/24 10:52 Completed Reevaluation(s) Reevaluation #1: Patient remains clinically stable throughout the emergency department visit. Re- assessment at the time of disposition demonstrates that the patient is in no acute distress. We reviewed all the results, analysis, and treatment plans. Patient is amenable to discharge. Strict return precautions were outlined. Patient was discharged in stable condition. Time: 17:40 Vital Signs Vital signs: Vital Signs Temperature 98.4 F 09/23/24 10:41 Pulse Rate 76 09/23/24 10:41 Respiratory Rate 20 09/23/24 10:41 Blood Pressure 145/64 H 09/23/24 10:41 Pulse Oximetry (%) 95 09/23/24 10:41 Oxygen Delivery Method Room Air 09/23/24 10:41 Weakness MDM Narrative MDM Narrative:: Aleena Jones am scribing for and in the presence of Dr. Stephens. Patient data External records reviewed:: [facility] previous records (Reviewed last ED visit dated 09/03/24, discharged with the following: Anemia.) Clinical information provided by:: patient and family Social determinants that could affect healthcare access:: none Patient has the following chronic illnesses:: ESRD, chronic anemia, hypertension, type 2 diabetes How is presenting disease/condition affected by chronic disease/condition?: exacerbated by Evaluation data The following diagnostics were reviewed and interpreted by me:: lab results Lab and/or radiology exams considered but not ordered:: none Interpretation Summary: Anemia; RBC 1.59, Hgb 5.0, Hct 15.0. Medications / Prescriptions Medications or Prescriptions considered but not ordered:: none Medication administrations:: see above if any Consultations Consultation(s) initiated? (list below): No Diagnosis Weakness Differential Diagnosis: acute myocardial infarction, anemia and dehydration Most likely diagnosis given after review of the tests above:: Symptomatic anemia Anemia due to chronic kidney disease Transfusion of blood during current hospitalization Admission Indicated Admission indicated?: not indicated Admission Request Was there a request for admission?: No Disposition Plan Disposition Plan: Discharge Discharge Attestation Discharge Attestation: The patient and all family members were given an opportunity to ask questions and understood the discharge instructions. Discharge instructions specifically effects, indications for sooner follow up or return to the emergency department, and the expected course of current diagnosis. Patient condition: Stable Discharge Plan Plan Patient Disposition: HOME (Self Care) Prescriptions/Referrals Prescriptions/Med Rec: No Action furosemide 40 mg Tablet 40 mg PO QDAY carvedilol 12.5 mg Tablet 12.5 mg PO BID Rx Instructions: must administer with a meal/food levothyroxine 100 mcg tablet 112 mcg PO DAILY diphenhydramine HCl [Benadryl] 25 mg Capsule 25 mg PO TID PRN (Reason: Itching) Mere-[facility] Rx 1-60-300 mg-mg-mcg tablet 1 tab PO QDAY Patient Comments: TAKE 1 TABLET BY MOUTH DAILY Velphoro 500 mg tablet,chewable 500 mg PO QID Patient Comments: CHEW AND SWALLOW 1 TABLET BY MOUTH FOUR TIMES DAILY WITH FOOD Mere-Martín 0.8 mg Tablet 1 tab PO QDAY Qty: 30 0RF Referrals: Shad Cotton MD [Primary Care Provider] - In 1 week Problem List Clinical Impression: Symptomatic anemia, Anemia due to chronic kidney disease, Transfusion of blood during current hospitalization Patient/Caregiver Discharge Instructions Education Materials: Anemia and Kidney Disease, ED Chronic Kidney Disease (CKD) Print Language: Lao Stand Alone Forms: Bridget Award Info., Patient Portal Info Letter
== END 2024-09-23 23:20 | disposition home or self-care (01) ==
PROVIDERS: Nurse Practitioner Family; Emergency Provider Emergency Medicine; PCP Internal Medicine
DX: I12.0 Hypertensive chronic kidney disease with stage 5 chronic kidney disease or end stage renal disease (principal); N18.6 End stage renal disease; E11.22 Type 2 diabetes mellitus with diabetic chronic kidney disease; D63.1 Anemia in chronic kidney disease
CPT/HCPCS: 36415; 36430; 80053; 85025; 85610; 85730; 86850; 86870; 86900; 86901; 86921; 86922; 99285; P9016

== ENCOUNTER 2024-10-02 17:38 | Emergency (ER) | payer MEDICARE, MEDICAID, SELFPAY ==
[2024-10-02 18:05] VITALS: BP 131/67; PULSE 76; RESP 16; TEMP 36.7; O2SAT 99
[2024-10-02 18:06] VITALS: BMI 41.8
--- NOTE | 2024-10-02 18:09 | PC.NURSE ---
Patient from [facility] and taken to rm 16 with c/o generalized weakness and was told by him PCP to come to er do to low H/H to get a blood transfusion, patient denies pain, skin is warm dry and pale, resp. even and non labored, chart up to be seen by er provider.
--- NOTE | 2024-10-02 18:45 | PD.EDADULT ---
ED General RME/HPI General Chief complaint: General Adult/Misc Complain Stated complaint: HGB 6.1 ON THURSDAY Time Seen by Provider: 10/02/24 18:41 Arrival date/time: 10/02/24 17:38 CC: Generalized weakness HPI patient was notified of today that his hemoglobin was 6.5. Patient is a dialysis patient seen by Dr. Cotton dialyzed Thursday states he has been feeling weak and that typically indicates that he is anemic. Patient denies any chest pain shortness of breath or difficulty breathing chief complaint is generalized weakness. Related Data Home Medications ?Medication ?Instructions ?Recorded ?Confirmed diphenhydramine HCl 25 mg capsule 25 mg PO TID PRN Itching 08/20/22 03/31/24 (Benadryl) vitamin B comp no.3-folic acid 1 1 tab PO QDAY 08/20/22 03/31/24 mg-vit C 60 mg-biotin 300 mcg tablet ([facility] Rx) sucroferric oxyhydroxide 500 mg 500 mg PO QID 10/03/22 03/31/24 chewable tablet (Velphoro) carvedilol 12.5 mg tablet 12.5 mg PO BID 08/04/23 03/31/24 furosemide 40 mg tablet 40 mg PO QDAY 08/04/23 03/31/24 levothyroxine 100 mcg tablet 112 mcg PO DAILY 08/04/23 03/31/24 Previous Rx's ?Medication ?Instructions ?Recorded vitamin B complex-vitamin C-folic 1 tab PO QDAY #30 tabs 01/11/23 acid 0.8 mg tablet (Mere-Martín) Allergies Allergy/AdvReac Type Severity Reaction Status Date / Time adhesive tape Allergy Severe Rash Verified 10/02/24 17:40 Review of Systems Review of Systems Narrative Review of Systems: GEN: No fever, no chills, no weight loss EYES: No discharge, no visual changes, no pain HEENT: No ear pain, no congestion, no sore throat PULM: No shortness of breath, no cough, no congestion CV: No chest pain, no dyspnea on exertion, no palpitations GI: No nausea, no vomiting, no diarrhea, no pain, no constipation : No frequency, no urgency, no dysuria MUSC/SKEL: No joint pain, no back pain SKIN: No rash PSYCH: No hallucinations, no depression HEME/LYMPH: No easy bleeding or bruising tendencies NEURO: + weakness, no headache Past Medical History Past Medical History NEUROLOGIC: Positive Neurological Disorders and Peripheral Neuropathy; Negative Cerebrovascular Accident, Transient Ischemic Attacks (TIA), Dementia, Alzheimer's Disease, Parkinson's Disease, Brain Tumor, Meningitis, Seizures, Epilepsy, Multiple Sclerosis, Cerebral Palsy, Amyotrophic Lateral Sclerosis (ALS/Carmela Gehrig's), Guillain-[place] Syndrome, Spina Bifida, Paralysis, Fermin's Palsy, Subdural Hematoma, Migraine, Head Trauma, Spinal Cord Injury or Traumatic Brain Injury CARDIAC: Positive Cardiac Disorders, Hypertension and Hypotension; Negative Myocardial Infarction, Cardiac Arrhythmia, Atrial Fibrillation, Angina, Heart Murmur, Coronary Artery Disease, Atherosclerotic Heart Disease, Peripheral Vascular Disease, Hypercholesterolemia, Aneurysm, Congestive Heart Failure, Congenital Heart Disease, Valvular Heart Disease, Rheumatic Fever, Cardiomyopathy, Pericarditis, Cellulitis, Deep Vein Thrombosis or Varicose Veins RESPIRATORY: Positive Sleep Apnea; Negative Chronic Obstructive Pulmonary Disease (COPD), Asthma, Bronchitis, Emphysema, Pneumonia, Pulmonary Fibrosis, Cystic Fibrosis, Tuberculosis, Pulmonary Embolism or Pulmonary Edema GASTROINTESTINAL: Positive Gastrointestinal Disorders, Gastrointestinal Bleed, Ulcer and Obesity; Negative Hepatitis, Cirrhosis, Pancreatitis, Celiac Disease, Gall Bladder Disease, Esophageal Varices, Kc's Esophagus, Colitis, Ulcerative Colitis, Diverticulitis, Diverticulosis, Colorectal Cancer, Irritable Bowel, Crohn's Disease, Obstructive Bowel, Hiatal Hernia, Hemorrhoids or Gastroesophageal Reflux Disease GENITOURINARY: Positive Genitourinary Disorders, Renal Disease and Dialysis (thursday, and thursday); Negative Kidney Stones, Polycystic Kidney Disease, Neurogenic Bladder, Inguinal Hernia, Prostate Cancer or Benign Prostatic Hyperplasia REPRODUCTIVE: Negative Breast Cancer, Genital Herpes, Gonorrhea, Syphilis or Testicular Cancer MUSCULOSKELETAL: Negative Musculoskeletal Disorders, Muscular Dystrophy, Myasthenia Gravis, Marfan's Syndrome, Bone Cancer, Arthritis, Rheumatoid Arthritis, Osteoporosis, Gout, Scoliosis, Carpal Tunnel Syndrome, Fibromyalgia, Fractures, Degenerative Joint Disease, Osteomyelitis or Poliovirus ENT: Negative Cataracts, Glaucoma, Blind, Retinal Detachment, Macular Degeneration, Ear Infection, Deafness, Head Trauma or Eye Prosthesis ENDOCRINE: Positive Endocrine Disorders; Negative Diabetes Mellitus Type 1, Diabetes Mellitus Type 2, Hypoglycemia, [place]'s Syndrome, [place]'s Disease, Hyperthyroidism, Hypothyroidism, Parathyroid Disease, Pituitary Disease, Systemic Lupus Erythematosus, Syndrome of Inappropriate Antidiuretic Hormone (SIADH), Adrenal Disease or Graves' Disease HEMATOLOGIC: Positive Blood Disorders and Anemia; Negative Leukemia, Hemophilia, Thalassemia, Sickle Cell Disease or Clotting Problems PSYCHO/SOCIAL: Positive Depression and Anxiety; Negative Psychiatric Problems, Schizophrenia, Recreational Drug Use, Bipolar Disorder, Behavior Problems, Self-Mutilation, Attention Deficit Disorder, Attention Deficit Hyperactivity Disorder, Depression, Post Traumatic Stress Disorder or Eating Disorder OTHER HISTORY: Positive Blood Transfusions and Chicken Pox; Negative Hospitalization, Autoimmune Disease, Down Syndrome, Autism, Developmental Delay, Shingles, Falls, Blood Transfusion Reaction, Anesthesia Reactions, Organ Transplant, Chemotherapy, Radiation Therapy, Hyperbaric Therapy, MRSA, VRSA, Vancomycin-Resistant Enterococci, Human Immunodeficiency Virus (HIV), Measles, Mumps, Rubella (Greek Measles), Pertussis, Clostridium Difficile, Cancer, Breast Cancer, Cervical Cancer, Colorectal Cancer, Lung Cancer, Ovarian Cancer, Prostate Cancer or Testicular Cancer Family History FAMILY HISTORY: Positive Family Psychiatric Problems and Family Respiratory Disorders; Negative Family Cardiac Disorders, Family Gastrointestinal Problems, Family Cancer, Family Surgery or Family Anesthesia Reaction Surgical History SURGICAL: Positive Tonsillectomy; Negative Cardiac Surgery, Open Heart Surgery, Coronary Artery Bypass Graft, Valve Replacement, Coronary Stent, Cardiac Catheterization, Pacemaker, Angiogram, Auto Implanted Cardiovert Defib, Carotid Endarterectomy, Endocrine Surgery, Thyroidectomy, Ear Surgery, Tympanostomy Tube, Eye Surgery, Nose Surgery, Oral Surgery, Adenoidectomy, Cochlear Implant, Corneal Transplant, Throat Surgery, Abdominal Surgery, Tracheostomy, Gastric Bypass Surgery, Gastrostomy, Bowel Surgery, Nephrectomy, Transurethral Resection, Joint Replacement, Amputation, Open Reduction Internal Fixation, Arthroscopy, Neurologic Surgery, Brain Shunt, Vasectomy or Organ Transplant Social History SMOKING STATUS: Never smoker ED Exam Narrative Physical exam: [General: Morbidly obese not in any acute distress Head normocephalic HEENT: Within acceptable limits Neck is supple nontender Chest equal chest rise nontender to palpation Respiratory: Clear to auscultation no wheezes crackles or rubs CV: Rate rhythm is regular no murmurs rubs or clicks Abdomen is distended secondary to body habitus soft nontender no masses positive bowel sounds all 4 quadrants Back: No CVA tenderness no spinous process tenderness from cervical spine thoracic and lumbar spine Skin: Intact no petechiae rash induration ulceration or crepitus Extremities: Moving all extremity against resistance cap refill less than 2 seconds neurosensory intact Neuro: Awake alert oriented x3 Glascow coma 15 no focal deficits] Course Quality Measures none Orders Category Date Time Status Transfuse,blood/blood products NOW Care 10/02/24 19:34 Active CBC Stat Lab 10/02/24 18:50 Completed CMP [Comprehensive Metabolic Panel] Stat Lab 10/02/24 18:50 Completed Type and Screen Stat Lab 10/02/24 18:50 Received prbc [Red Blood Cells] Stat Lab 10/02/24 18:50 Received Vital Signs Vital signs: Vital Signs Temperature 98.0 F 10/02/24 18:05 Pulse Rate 76 10/02/24 18:05 Respiratory Rate 16 10/02/24 18:05 Blood Pressure 131/67 H 10/02/24 18:05 Pulse Oximetry (%) 99 10/02/24 18:05 Oxygen Delivery Method Room Air 10/02/24 18:05 [facility] Patient data External records reviewed:: [facility] previous records Clinical information provided by:: patient Social determinants that could affect healthcare access:: none Patient has the following chronic illnesses:: ESRD on dialysis Thursday How is presenting disease/condition affected by chronic disease/condition?: exacerbated by Evaluation data The following diagnostics were reviewed and interpreted by me:: lab results Lab and/or radiology exams considered but not ordered:: H&H shows no leukocytosis hemoglobin of 6.5 no thrombocytopenia CMP shows a creatinine of 5.9, with elevated BUN. No electrolyte imbalances no transaminitis or T. bili elevation Interpretation Summary: Patient is anemic and needs transfusion electrolyte abnormalities will be remedied with dialysis tomorrow. Medications Medications considered but not ordered:: None Medication administrations:: None Consultations Consultation(s) initiated? (list below): No Diagnosis Differential Diagnosis ED Complaint MDM: Anemia ESRD electrolyte imbalance Most likely diagnosis given after review of the tests above:: Anemia Admission Indicated Admission indicated?: not indicated Explain why admission is indicated or not indicated:: Stable for discharge after transfusion has scheduled dialysis tomorrow Admission Request Was there a request for admission?: No Disposition Plan Disposition Plan: Discharge Discharge Attestation Discharge Attestation: The patient and all family members were given an opportunity to ask questions and understood the discharge instructions. Discharge instructions specifically effects, indications for sooner follow up or return to the emergency department, and the expected course of current diagnosis. Patient condition: Stable Medical Decision Making Differential Diagnosis Differential Diagnosis: Anemia ESRD electrolyte imbalance Lab Data 10/02/24 18:50 10/02/24 18:50 Labs: Lab Results 10/02/24 Range/Units 18:50 WBC 6.3 (3.8-10.6) Thou/mm3 RBC 2.16 L (4.50-5.90) Miln/mm3 Hgb 6.7 L* (13.5-16.0) g/dL Hct 20.7 L* (41.0-53.0) % MCV 96 (80-100) fL MCH 31.0 (25.0-35.0) pg MCHC 32.4 (31.0-37.0) g/dl RDW Std Deviation 61.1 H (35.1-43.9) fL Plt Count 75 L D (140-440) Thou/mm3 Neut % (Auto) 79 (37-80) % Lymph % (Auto) 13 (10-50) % Mckenzie % (Auto) 5 (0-12) % Eos % (Auto) 2 (0-10) % Baso % (Auto) 1 (0-2.5) % Neut # (Auto) 5.0 (1.8-7.7) Thou/mm3 Lymph # (Auto) 0.8 L (1.0-4.8) Thou/mm3 Mckenzie # (Auto) 0.3 (0.0-0.8) Thou/mm3 Eos # (Auto) 0.1 (0.0-0.5) Thou/mm3 Baso # (Auto) 0.0 (0.0-0.2) Thou/mm3 Immature Gran # (Auto) 0.02 H (0.00-0.00) Thou/mm3 Absolute Nucleated RBC 0.00 (0.00-0.00) Thou/mm3 Immature Gran % 0 (0-0) % Nucleated RBC % 0 (0) /100 WBC Sodium 138 (136-145) mMol/L Potassium 4.0 (3.4-5.1) mMol/L Chloride 95 L (98-107) mMol/L Carbon Dioxide 31.3 H (20.0-31.0) mMol/L Anion Gap 12 (7-16) BUN 37 H (9-23) mg/dL Creatinine 5.9 H* (0.6-1.3) mg/dL Estim Creat Clear Calc 20.9 L (>60) mL/min eGFR 10 L* (60 - ) See Note BUN/Creatinine Ratio 6 L (12-20) Ratio Glucose 87 (74-106) mg/dL Calculated Osmolality 283 (275-295) Calcium 7.3 L (8.3-10.6) mg/dL Corrected Calcium 7.3 L (8.5-10.1) mg/dL Total Bilirubin 0.5 (0.3-1.2) mg/dL AST 12 (0-34) U/L ALT < 7 L (10-49) U/L Alkaline Phosphatase 140 H (46-116) U/L Total Protein 7.8 (5.7-8.2) gm/dL Albumin 4.0 (3.5-5.0) gm/dL Globulin 3.8 H (2.3-3.5) gm/dL Albumin/Globulin Ratio 1.1 L (1.2-2.2) Misc Test Result Platelets confirmed Discharge Plan Plan Patient Disposition: HOME (Self Care) Patient condition on transfer: Stable Prescriptions/Referrals Prescriptions/Med Rec: No Action furosemide 40 mg Tablet 40 mg PO QDAY carvedilol 12.5 mg Tablet 12.5 mg PO BID Rx Instructions: must administer with a meal/food levothyroxine 100 mcg tablet 112 mcg PO DAILY diphenhydramine HCl [Benadryl] 25 mg Capsule 25 mg PO TID PRN (Reason: Itching) Mere-Martín Rx 1-60-300 mg-mg-mcg tablet 1 tab PO QDAY Patient Comments: TAKE 1 TABLET BY MOUTH DAILY Velphoro 500 mg tablet,chewable 500 mg PO QID Patient Comments: CHEW AND SWALLOW 1 TABLET BY MOUTH FOUR TIMES DAILY WITH FOOD Mere-Martín 0.8 mg Tablet 1 tab PO QDAY Qty: 30 0RF Referrals: Shad Cotton MD [Primary Care Provider] - In 1 week Problem List Clinical Impression: Anemia, ESRD on hemodialysis Patient/Caregiver Discharge Instructions Education Materials: Anemia Additional Instructions: Follow-up with dialysis tomorrow if there is a worsening of symptoms return the emergency room for reevaluation. Print Language: Albanian Stand Alone Forms: Bridget Award Info., Patient Portal Info Letter, Work/School Release PA/PROOFER APPRENTICE Supervising Physician PA/PROOFER APPRENTICE Supervising Physician: Dejan Damian ENP
[2024-10-02 19:13] LABS: Basophils % (Auto) 1 % (0-2.5); Eosinophils # (Auto) 0.1 Thou/mm3 (0.0-0.5); Eosinophils % (Auto) 2 % (0-10); Hematocrit 20.7 % (41.0-53.0); Immature Granulocytes % (Auto) 0 % (0-0); Immature Granulocytes Auto 0.02 Thou/mm3 (0.00-0.00); Lymphocytes # (Auto) 0.8 Thou/mm3 (1.0-4.8); Lymphocytes % (Auto) 13 % (10-50); Mean Corpuscular HGB Conc 32.4 g/dl (31.0-37.0); Mean Corpuscular Volume 96 fL (80-100); Monocytes # (Auto) 0.3 Thou/mm3 (0.0-0.8); Monocytes % (Auto) 5 % (0-12); Neutrophils % (Auto) 79 % (37-80); Nucleated Red Blood Cell % 0 /100 WBC (0); RDW Standard Deviation 61.1 fL (35.1-43.9); Red Blood Count 2.16 Miln/mm3 (4.50-5.90); White Blood Count 6.3 Thou/mm3 (3.8-10.6)
[2024-10-02 19:16] LABS: Platelet Count 75 Thou/mm3 (140-440)
[2024-10-02 19:18] LABS: Hemoglobin 6.7 g/dL (13.5-16.0)
[2024-10-02 19:19] LABS: Slide Review Platelets confirmed
[2024-10-02 19:26] LABS: Albumin/Globulin Ratio 1.1 (1.2-2.2); Alkaline Phosphatase 140 U/L (46-116); Anion Gap 12 (7-16); Aspartate Amino Transferase 12 U/L (0-34); BUN/Creatinine Ratio 6 Ratio (12-20); Bilirubin,Total 0.5 mg/dL (0.3-1.2); Blood Urea Nitrogen 37 mg/dL (9-23); Calcium 7.3 mg/dL (8.3-10.6); Calcium (Corrected) 7.3 mg/dL (8.5-10.1); Carbon Dioxide 31.3 mMol/L (20.0-31.0); Chloride 95 mMol/L (98-107); Creatinine (Component) 5.9 mg/dL (0.6-1.3); Estimated Creatinine Clearance 20.9 mL/min (>60); Globulin 3.8 gm/dL (2.3-3.5); Glucose 87 mg/dL (74-106); Osmolality,Calculated 283 (275-295); Sodium 138 mMol/L (136-145); Total Protein 7.8 gm/dL (5.7-8.2); eGFR 10 See Note
[2024-10-02 19:28] LABS: Alanine Aminotransferase < 7 U/L (10-49)
[2024-10-02 22:47] VITALS: BP 161/74; PULSE 70; RESP 19; TEMP 36.6; O2SAT 96
[2024-10-02 23:40] VITALS: BP 170/86; PULSE 71; RESP 18; TEMP 36.6; O2SAT 96
[2024-10-02 23:56] VITALS: BP 166/85; PULSE 73; RESP 18; TEMP 36.7; O2SAT 97
[2024-10-03] VITALS (7 sets, daily range): BP systolic 120–156; BP diastolic 65–81; PULSE 66–70; RESP 16–18; TEMP 36.7–36.9; O2SAT 94–99
--- NOTE | 2024-10-03 04:13 | PD.EDADDENDU ---
Emergency Room Addendum Addendum Narrative: 1800: Care assumed by previous shift provider. Past medical, surgical, social and family history reviewed. Vitals and home medications reviewed. Results and treatment plan discussed. I will assume the care of the patient at this time and will follow the patient, pending final disposition. Patient otherwise well without significant events during my encounter. 0600: Patient signed out to oncoming provider in stable condition pending crisis team assessment and final disposition
== END 2024-10-03 05:55 | disposition home or self-care (01) ==
PROVIDERS: Registered Nurse General Practice; Emergency Provider Emergency Medicine; PCP Internal Medicine
DX: N18.6 End stage renal disease (principal); D63.1 Anemia in chronic kidney disease; Z99.2 Dependence on renal dialysis
CPT/HCPCS: 36415; 36430; 80053; 85025; 86850; 86870; 86900; 86901; 86921; 86922; 99285; P9016

== ENCOUNTER 2024-10-16 15:19 | Emergency (ER) | payer MEDICARE, MEDICAID, SELFPAY ==
[2024-10-16] VITALS (8 sets, daily range): BP systolic 132–169; BP diastolic 58–85; PULSE 68–78; RESP 13–20; TEMP 36.4–37.2; O2SAT 93–99; BMI 44.9
--- NOTE | 2024-10-16 15:56 | PD.EDRME ---
Rapid Medical Screening Exam RME Arrival date/time: 10/16/24 15:19 59-year-old male ESRD on dialysis presents emergency department today requesting blood transfusion patient does frequently come for this. Patient also reports that he missed dialysis on Thursday and feels like he may need to be dialyzed as well Chief Complaint: Recheck/Abnormal Lab/Rx Vital signs: Vital Signs Temperature 97.9 F 10/16/24 15:55 Pulse Rate 78 10/16/24 15:55 Respiratory Rate 20 10/16/24 15:55 Blood Pressure 132/62 H 10/16/24 15:55 Pulse Oximetry (%) 97 10/16/24 15:55 Oxygen Delivery Method Room Air 10/16/24 15:55
[2024-10-16 17:03] LABS: Basophils % (Auto) 1 % (0-2.5); Eosinophils # (Auto) 0.1 Thou/mm3 (0.0-0.5); Eosinophils % (Auto) 2 % (0-10); Immature Granulocytes % (Auto) 1 % (0-0); Immature Granulocytes Auto 0.03 Thou/mm3 (0.00-0.00); Lymphocytes # (Auto) 0.8 Thou/mm3 (1.0-4.8); Lymphocytes % (Auto) 14 % (10-50); Mean Corpuscular HGB Conc 32.5 g/dl (31.0-37.0); Mean Corpuscular Volume 95 fL (80-100); Monocytes # (Auto) 0.4 Thou/mm3 (0.0-0.8); Monocytes % (Auto) 6 % (0-12); Neutrophils # (Auto) 4.5 Thou/mm3 (1.8-7.7); Neutrophils % (Auto) 77 % (37-80); Nucleated Red Blood Cell % 0 /100 WBC (0); RDW Standard Deviation 62.1 fL (35.1-43.9); Red Blood Count 1.74 Miln/mm3 (4.50-5.90); White Blood Count 5.8 Thou/mm3 (3.8-10.6)
[2024-10-16 17:15] LABS: INR 1.4 (0.9-1.3); Partial Thromboplastin Time 33.6 Seconds (22.0-36.0); Prothrombin Time 14.6 Seconds (9.0-12.2)
[2024-10-16 17:25] LABS: Albumin, Serum 3.7 gm/dL (3.5-5.0); Albumin/Globulin Ratio 1.1 (1.2-2.2); Alkaline Phosphatase 113 U/L (46-116); Anion Gap 10 (7-16); Aspartate Amino Transferase 13 U/L (0-34); BUN/Creatinine Ratio 8 Ratio (12-20); Bilirubin,Total 0.3 mg/dL (0.3-1.2); Blood Urea Nitrogen 61 mg/dL (9-23); Calcium 7.5 mg/dL (8.3-10.6); Calcium (Corrected) 7.7 mg/dL (8.5-10.1); Carbon Dioxide 28.9 mMol/L (20.0-31.0); Chloride 95 mMol/L (98-107); Creatinine (Component) 7.8 mg/dL (0.6-1.3); Estimated Creatinine Clearance 16.5 mL/min (>60); Globulin 3.5 gm/dL (2.3-3.5); Glucose 93 mg/dL (74-106); Osmolality,Calculated 285 (275-295); Potassium 5.6 mMol/L (3.4-5.1); Sodium 134 mMol/L (136-145); Total Protein 7.2 gm/dL (5.7-8.2); eGFR 7 See Note
[2024-10-16 17:29] LABS: Hematocrit 16.6 % (41.0-53.0); Hemoglobin 5.4 g/dL (13.5-16.0); Platelet Count 78 Thou/mm3 (140-440)
[2024-10-16 17:31] LABS: Alanine Aminotransferase < 7 U/L (10-49); Slide Review Platelets confirmed
--- NOTE | 2024-10-16 21:13 | PD.EDADULT ---
ED General RME/HPI General Chief complaint: Recheck/Abnormal Lab/Rx Stated complaint: Possible Blood transfusion Time Seen by Provider: 10/16/24 20:50 Source: patient Arrival date/time: 10/16/24 15:19 Mode of arrival: ambulatory Limitations: no limitations RME / HPI RME / HPI narrative: 10/16/24 15:19 59-year-old male ESRD on dialysis presents emergency department today requesting blood transfusion patient does frequently come for this. Patient also reports that he missed dialysis on Thursday and feels like he may need to be dialyzed as well DR. STEPHENS MAIN ED EVALUATION: 59 year old male presents to the Emergency Department sent by his PCP for a blood transfusion, Hgb is 5. Patient complains of mild shortness of breath. No other associated symptoms or medical complaints. PMHx: ESRD, chronic anemia, hypertension, type 2 diabetes. Social Hx: No tobacco, alcohol, or substance use. Related Data Home Medications ?Medication ?Instructions ?Recorded ?Confirmed diphenhydramine HCl 25 mg capsule 25 mg PO TID PRN Itching 08/20/22 03/31/24 (Benadryl) vitamin B comp no.3-folic acid 1 1 tab PO QDAY 08/20/22 03/31/24 mg-vit C 60 mg-biotin 300 mcg tablet ([facility] Rx) sucroferric oxyhydroxide 500 mg 500 mg PO QID 10/03/22 03/31/24 chewable tablet (Velphoro) carvedilol 12.5 mg tablet 12.5 mg PO BID 08/04/23 03/31/24 furosemide 40 mg tablet 40 mg PO QDAY 08/04/23 03/31/24 levothyroxine 100 mcg tablet 112 mcg PO DAILY 08/04/23 03/31/24 Previous Rx's ?Medication ?Instructions ?Recorded vitamin B complex-vitamin C-folic 1 tab PO QDAY #30 tabs 01/11/23 acid 0.8 mg tablet (Mere-Martín) Allergies Allergy/AdvReac Type Severity Reaction Status Date / Time adhesive tape Allergy Severe Rash Verified 10/24/24 14:04 Review of Systems Review of Systems Systems Reviewed: All systems reviewed, normal except as documented Narrative Review of Systems: GEN: No fever, no chills, no weight loss EYES: No discharge, no visual changes, no pain HEENT: No ear pain, no congestion, no sore throat PULM: + mild shortness of breath, no cough, no congestion CV: No chest pain, no dyspnea on exertion, no palpitations GI: No nausea, no vomiting, no diarrhea, no pain, no constipation : No frequency, no urgency and no dysuria MUSC/SKEL: No joint pain, no back pain SKIN: No rash PSYCH: No hallucinations, no depression HEME/LYMPH: No easy bleeding or bruising tendencies NEURO: No weakness, no headache Past Medical History Past Medical History NEUROLOGIC: Positive Neurological Disorders and Peripheral Neuropathy CARDIAC: Positive Cardiac Disorders, Hypertension and Hypotension RESPIRATORY: Positive Sleep Apnea GASTROINTESTINAL: Positive Gastrointestinal Disorders, Gastrointestinal Bleed, Ulcer and Obesity GENITOURINARY: Positive Genitourinary Disorders, Renal Disease and Dialysis ENDOCRINE: Positive Endocrine Disorders HEMATOLOGIC: Positive Blood Disorders and Anemia PSYCHO/SOCIAL: Positive Depression and Anxiety OTHER HISTORY: Positive Chicken Pox Family History FAMILY HISTORY: Positive Family Psychiatric Problems and Family Respiratory Disorders; Negative Family Cardiac Disorders, Family Gastrointestinal Problems, Family Cancer, Family Surgery or Family Anesthesia Reaction Surgical History SURGICAL: Positive Tonsillectomy; Negative Cardiac Surgery, Open Heart Surgery, Coronary Artery Bypass Graft, Valve Replacement, Coronary Stent, Cardiac Catheterization, Pacemaker, Angiogram, Auto Implanted Cardiovert Defib, Carotid Endarterectomy, Endocrine Surgery, Thyroidectomy, Ear Surgery, Tympanostomy Tube, Eye Surgery, Nose Surgery, Oral Surgery, Adenoidectomy, Cochlear Implant, Corneal Transplant, Throat Surgery, Abdominal Surgery, Tracheostomy, Gastric Bypass Surgery, Gastrostomy, Bowel Surgery, Nephrectomy, Transurethral Resection, Joint Replacement, Amputation, Open Reduction Internal Fixation, Arthroscopy, Neurologic Surgery, Brain Shunt or Vasectomy Social History SMOKING STATUS: Never smoker SUBSTANCE USE: does not use ALCOHOL: Never ED Exam Narrative Physical exam: GENERAL APPEARANCE: alert and oriented x 4, well-developed, well-nourished, no acute distress. Patient looks pale. VITALS: All vitals were reviewed and the pulse ox is 95% on room air, which is normal according to my interpretation. HEENT: Normocephalic, atraumatic; pupils equal, round, reactive to light; EOMI; mucous membranes pink, moist; oropharynx clear NECK: Supple LUNGS: CTABL; no wheezes, no rales, no rhonchi HEART: Regular rate, regular rhythm; normal S1, S2; no murmurs ABDOMEN: non distended; normal BS; soft, no tenderness, no guarding, no rebound; no masses, no organomegaly, no hernia BACK: no CVA tenderness EXTREMITIES: atraumatic; no edema NEUROLOGIC: awake; alert and oriented x4; cranial nerves II-XII grossly intact; no focal sensory or motor deficits PSYCHIATRIC: appropriate mood and affect SKIN: warm, dry, normal color; no rashes General Limitations: Present no limitations Course Quality Measures none Orders Category Date Time Status Transfuse,blood/blood products NOW Care 10/16/24 20:51 Completed Antibody Identification Stat Lab 10/16/24 16:31 Completed CBC Stat Lab 10/16/24 16:31 Completed Comprehensive Metabolic Panel Stat Lab 10/16/24 16:31 Completed Partial Thromboplastin Time Stat Lab 10/16/24 16:31 Completed Prothrombin Time with INR Stat Lab 10/16/24 16:31 Completed Red Blood Cells Stat Lab 10/16/24 16:31 Completed Type and Screen Stat Lab 10/16/24 16:31 Completed Calcium Gluconate 10% Inj Med 10/16/24 22:18 Discontinued 1 gm IV X1 ONE Vital Signs Vital signs: Vital Signs Temperature 97.9 F 10/16/24 15:55 Pulse Rate 78 10/16/24 15:55 Respiratory Rate 20 10/16/24 15:55 Blood Pressure 132/62 H 10/16/24 15:55 Pulse Oximetry (%) 97 10/16/24 15:55 Oxygen Delivery Method Room Air 10/16/24 15:55 [facility] Patient data External records reviewed:: [facility] previous records (Reviewed last ED visit dated 10/02/24, discharged with the following: Anemia) Clinical information provided by:: patient Social determinants that could affect healthcare access:: none Patient has the following chronic illnesses:: ESRD, chronic anemia, hypertension, type 2 diabetes. How is presenting disease/condition affected by chronic disease/condition?: exacerbated by Evaluation data The following diagnostics were reviewed and interpreted by me:: lab results Lab and/or radiology exams considered but not ordered:: none Interpretation Summary: RBC 1.74 Hgb 5.4 Hct 16.6 Medications Medications considered but not ordered:: none Medication administrations:: Medication Administration History Discontinued Medications Calcium Gluconate (Calcium Gluconate 10% Inj 1 Gm/10 Ml Vial) 1 gm IV X1 ONE Stop: 10/16/24 22:19 Last Admin: 10/16/24 23:45 Dose: 1 gm Documented By: see above if any Consultations Consultation(s) initiated? (list below): No Diagnosis Differential Diagnosis ED Complaint MDM: anemia, renal disease, dehydration Most likely diagnosis given after review of the tests above:: Symptomatic anemia Admission Indicated Admission indicated?: not indicated Explain why admission is indicated or not indicated:: Stable for discharge and outpatient management Admission Request Was there a request for admission?: No Disposition Plan Disposition Plan: Discharge Discharge Attestation Discharge Attestation: The patient and all family members were given an opportunity to ask questions and understood the discharge instructions. Discharge instructions specifically effects, indications for sooner follow up or return to the emergency department, and the expected course of current diagnosis. Patient condition: Stable Medical Decision Making MDM Narrative MDM Narrative: Aleena Jones am scribing for and in the presence of Dr. Stephens. Differential Diagnosis Differential Diagnosis: anemia, renal disease, dehydration Medical Records Medical records reviewed: Yes I reviewed the patient's medical records. Lab Data Lab results reviewed: Yes I reviewed the patient's lab results. 10/16/24 16:31 10/16/24 16:31 Labs: Lab Results 10/16/24 Range/Units 16:31 WBC 5.8 (3.8-10.6) Thou/mm3 RBC 1.74 L* (4.50-5.90) Miln/mm3 Hgb 5.4 L* (13.5-16.0) g/dL Hct 16.6 L* (41.0-53.0) % MCV 95 (80-100) fL MCH 31.0 (25.0-35.0) pg MCHC 32.5 (31.0-37.0) g/dl RDW Std Deviation 62.1 H (35.1-43.9) fL Plt Count 78 L (140-440) Thou/mm3 Neut % (Auto) 77 (37-80) % Lymph % (Auto) 14 (10-50) % Grady % (Auto) 6 (0-12) % Eos % (Auto) 2 (0-10) % Baso % (Auto) 1 (0-2.5) % Neut # (Auto) 4.5 (1.8-7.7) Thou/mm3 Lymph # (Auto) 0.8 L (1.0-4.8) Thou/mm3 Grady # (Auto) 0.4 (0.0-0.8) Thou/mm3 Eos # (Auto) 0.1 (0.0-0.5) Thou/mm3 Baso # (Auto) 0.0 (0.0-0.2) Thou/mm3 Immature Gran # (Auto) 0.03 H (0.00-0.00) Thou/mm3 Absolute Nucleated RBC 0.00 (0.00-0.00) Thou/mm3 Immature Gran % 1 H (0-0) % Nucleated RBC % 0 (0) /100 WBC PT 14.6 H (9.0-12.2) Seconds INR 1.4 H (0.9-1.3) APTT 33.6 (22.0-36.0) Seconds Sodium 134 L (136-145) mMol/L Potassium 5.6 H (3.4-5.1) mMol/L Chloride 95 L (98-107) mMol/L Carbon Dioxide 28.9 (20.0-31.0) mMol/L Anion Gap 10 (7-16) BUN 61 H (9-23) mg/dL Creatinine 7.8 H* (0.6-1.3) mg/dL Estim Creat Clear Calc 16.5 L (>60) mL/min eGFR 7 L* (60 - ) See Note BUN/Creatinine Ratio 8 L (12-20) Ratio Glucose 93 (74-106) mg/dL Calculated Osmolality 285 (275-295) Calcium 7.5 L (8.3-10.6) mg/dL Corrected Calcium 7.7 L (8.5-10.1) mg/dL Total Bilirubin 0.3 (0.3-1.2) mg/dL AST 13 (0-34) U/L ALT < 7 L (10-49) U/L Alkaline Phosphatase 113 (46-116) U/L Total Protein 7.2 (5.7-8.2) gm/dL Albumin 3.7 (3.5-5.0) gm/dL Globulin 3.5 (2.3-3.5) gm/dL Albumin/Globulin Ratio 1.1 L (1.2-2.2) Misc Test Result Platelets confirmed Blood Type O Positive Antibody Screen POSITIVE Antibody Identification Anti-E Crossmatch See Detail Blood Bank Wristband ID Yes Discharge Plan Plan Patient Disposition: HOME (Self Care) Prescriptions/Referrals Prescriptions/Med Rec: No Action furosemide 40 mg Tablet 40 mg PO QDAY carvedilol 12.5 mg Tablet 12.5 mg PO BID Rx Instructions: must administer with a meal/food levothyroxine 100 mcg tablet 112 mcg PO DAILY diphenhydramine HCl [Benadryl] 25 mg Capsule 25 mg PO TID PRN (Reason: Itching) Mere-[facility]ín Rx 1-60-300 mg-mg-mcg tablet 1 tab PO QDAY Patient Comments: TAKE 1 TABLET BY MOUTH DAILY Velphoro 500 mg tablet,chewable 500 mg PO QID Patient Comments: CHEW AND SWALLOW 1 TABLET BY MOUTH FOUR TIMES DAILY WITH FOOD Mere-Martín 0.8 mg Tablet 1 tab PO QDAY Qty: 30 0RF Referrals: Shad Cotton MD [Primary Care Provider] - In 1 week Problem List Clinical Impression: Symptomatic anemia Patient/Caregiver Discharge Instructions Education Materials: Anemia and Kidney Disease Print Language: Burundian Stand Alone Forms: Bridget Award Info., Patient Portal Info Letter
[2024-10-16] MEDS: CALCIUM GLUCONATE 10% INJ 1 GM/10 ML VIAL IV (23:45)
[2024-10-17 00:15] VITALS: BP 149/72; PULSE 71; RESP 17; TEMP 36.7; O2SAT 96
[2024-10-17 00:30] VITALS: BP 159/81; PULSE 71; RESP 17; TEMP 36.8; O2SAT 95
[2024-10-17 01:48] VITALS: BP 157/87; PULSE 68; RESP 16; TEMP 36.9; O2SAT 98
[2024-10-17 02:20] VITALS: BP 160/82; PULSE 70; RESP 16; TEMP 36.6; O2SAT 100
== END 2024-10-17 02:17 | disposition home or self-care (01) ==
PROVIDERS: Nurse Practitioner Primary Care; Emergency Provider Emergency Medicine; PCP Internal Medicine
DX: I12.0 Hypertensive chronic kidney disease with stage 5 chronic kidney disease or end stage renal disease (principal); E11.22 Type 2 diabetes mellitus with diabetic chronic kidney disease; N18.6 End stage renal disease; D63.1 Anemia in chronic kidney disease; Z99.2 Dependence on renal dialysis; Z91.158 Patient's noncompliance with renal dialysis for other reason
CPT/HCPCS: 36415; 36430; 80053; 85025; 85610; 85730; 86850; 86870; 86900; 86901; 86921; 86922; 99285; J0612; P9016

== ENCOUNTER 2024-10-24 13:59 | Emergency (ER) | payer MEDICARE, MEDICAID, SELFPAY ==
[2024-10-24 14:01] VITALS: BMI 44.9
[2024-10-24 14:23] VITALS: BP 133/65; PULSE 75; RESP 20; TEMP 36.4; O2SAT 96
--- NOTE | 2024-10-24 14:36 | EKG_ITS ---
[facility] Test Date: 2024-10-24 Pat Name: ERICK WARNER Department: Room: - Gender: Male Associate Media Planner: : 1965 Requested By: Alfred Puckett Order Number: [id number] Reading MD: Alfred Puckett Measurements Intervals [place] Rate: 73 P: 23 DE: 204 QRS: 109 QRSD: 123 T: 150 QT: 442 QTc: 487 Interpretive Statements SINUS RHYTHM WITH OCCASIONAL SUPRAVENTRICULAR PREMATURE COMPLEXES RIGHT AXIS DEVIATION [QRS AXIS > 100] RIGHT BUNDLE BRANCH BLOCK [120+ ms QRS DURATION, UPRIGHT V1, 40+ ms S IN I/aVL/V4/V5/V6] Compared to ECG 01/11/2024 23:45:23 Right-axis deviation now present Right bundle-branch block now present First degree AV block no longer present Intraventricular conduction delay no longer present T-wave abnormality no longer present Prolonged QT interval no longer present /store/S0/[id number]/ecg/[id number].pdf
--- NOTE | 2024-10-24 14:37 | EDRME_ITS ---
Rapid Medical Screening Exam [facility] Arrival date/time: 10/24/24 13:59 59-year-old male with a history of end-stage renal disease on dialysis and history of anemia reports with complaints of weakness and missed dialysis appointments Chief Complaint: Weakness Time Seen by Provider: 10/24/24 14:23 Vital signs: Vital Signs Temperature 97.6 F 10/24/24 14:23 Pulse Rate 75 10/24/24 14:23 Respiratory Rate 20 10/24/24 14:23 Blood Pressure 133/65 H 10/24/24 14:23 Pulse Oximetry (%) 96 10/24/24 14:23 Oxygen Delivery Method Room Air 10/24/24 14:23
[2024-10-24 16:23] LABS: Basophils % (Auto) 0 % (0-2.5); Eosinophils # (Auto) 0.1 Thou/mm3 (0.0-0.5); Eosinophils % (Auto) 2 % (0-10); Immature Granulocytes % (Auto) 0 % (0-0); Immature Granulocytes Auto 0.02 Thou/mm3 (0.00-0.00); Lymphocytes % (Auto) 17 % (10-50); Mean Corpuscular HGB Conc 34.5 g/dl (31.0-37.0); Mean Corpuscular Hemoglobin 31.9 pg (25.0-35.0); Mean Corpuscular Volume 92 fL (80-100); Monocytes # (Auto) 0.5 Thou/mm3 (0.0-0.8); Monocytes % (Auto) 8 % (0-12); Neutrophils # (Auto) 4.4 Thou/mm3 (1.8-7.7); Neutrophils % (Auto) 72 % (37-80); Nucleated Red Blood Cell % 0 /100 WBC (0); RDW Standard Deviation 61.9 fL (35.1-43.9)
[2024-10-24 16:30] LABS: Hematocrit 19.4 % (41.0-53.0); Hemoglobin 6.7 g/dL (13.5-16.0)
[2024-10-24 16:31] LABS: Platelet Count 71 Thou/mm3 (140-440); Slide Review Platelets confirmed
[2024-10-24 16:47] LABS: INR 1.4 (0.9-1.3); Partial Thromboplastin Time 36.1 Seconds (22.0-36.0); Prothrombin Time 14.9 Seconds (9.0-12.2)
[2024-10-24 17:17] LABS: Alanine Aminotransferase 10 U/L (10-49); Albumin, Serum 3.6 gm/dL (3.5-5.0); Albumin/Globulin Ratio 0.9 (1.2-2.2); Alkaline Phosphatase 100 U/L (46-116); Anion Gap 15 (7-16); Aspartate Amino Transferase 18 U/L (0-34); BUN/Creatinine Ratio 7 Ratio (12-20); Bilirubin,Total 0.4 mg/dL (0.3-1.2); Blood Urea Nitrogen 68 mg/dL (9-23); Calcium 7.8 mg/dL (8.3-10.6); Calcium (Corrected) 8.1 mg/dL (8.5-10.1); Carbon Dioxide 21.8 mMol/L (20.0-31.0); Chloride 98 mMol/L (98-107); Creatinine (Component) 9.4 mg/dL (0.6-1.3); Estimated Creatinine Clearance 13.7 mL/min (>60); Glucose 95 mg/dL (74-106); Osmolality,Calculated 289 (275-295); Potassium 4.3 mMol/L (3.4-5.1); Sodium 135 mMol/L (136-145); Thyroid Stimulating Hormone 5.82 uIU/mL (0.55-4.78); Total Protein 7.6 gm/dL (5.7-8.2); eGFR 6 See Note
[2024-10-24 21:29] VITALS: BP 117/68; PULSE 70; RESP 20; TEMP 36.6; O2SAT 97
--- NOTE | 2024-10-24 22:32 | PD.EDWEAK ---
ED Weakness RME/HPI General Chief complaint: Weakness Stated complaint: NEED BLOOD TRANSFUSION Time Seen by Provider: 10/24/24 14:23 Arrival date/time: 10/24/24 13:59 RME / HPI RME / HPI Narrative: 10/24/24 13:59 59-year-old male with a history of end-stage renal disease on dialysis and history of anemia reports with complaints of weakness and missed dialysis appointments Patient is a 59-year-old male with past medical history of ESRD on HD M/W/F, chronic iron deficiency anemia, hypertension, and type 2 diabetes who presents to the ED on 10/24/2024 due to generalized weakness and missed dialysis sessions Thursday (today) and Thursday. Patient has chronic anemia and frequently comes to ED for blood transfusions. He is followed by Nephrology Dr. Cotton and attends dialysis at the [facility] across the street. Patient states he missed Thursday dialysis because he got notification that his labs from Thursday showed low hemoglobin and that they will not complete dialysis if it is below 7.0. Patient then delayed coming to the ED for a transfusion until today. He took 2 furosemide pills on Thursday and 2 on Thursday due to feeling overloaded. Patient still makes minimal urine. Currently he is denying any complaints other than feeling weak. Denies shortness of breath, cough, chest pain, nausea, vomiting, or abdominal pain. Related Data Home Medications ?Medication ?Instructions ?Recorded ?Confirmed diphenhydramine HCl 25 mg capsule 25 mg PO TID PRN Itching 08/20/22 03/31/24 (Benadryl) vitamin B comp no.3-folic acid 1 1 tab PO QDAY 08/20/22 03/31/24 mg-vit C 60 mg-biotin 300 mcg tablet ([facility] Rx) sucroferric oxyhydroxide 500 mg 500 mg PO QID 10/03/22 03/31/24 chewable tablet (Velphoro) carvedilol 12.5 mg tablet 12.5 mg PO BID 08/04/23 03/31/24 furosemide 40 mg tablet 40 mg PO QDAY 08/04/23 03/31/24 levothyroxine 100 mcg tablet 112 mcg PO DAILY 08/04/23 03/31/24 Previous Rx's ?Medication ?Instructions ?Recorded vitamin B complex-vitamin C-folic 1 tab PO QDAY #30 tabs 01/11/23 acid 0.8 mg tablet (Mere-Martín) Allergies Allergy/AdvReac Type Severity Reaction Status Date / Time adhesive tape Allergy Severe Rash Verified 10/24/24 14:04 Past Medical History Past Medical History NEUROLOGIC: Positive Neurological Disorders and Peripheral Neuropathy CARDIAC: Positive Cardiac Disorders, Hypertension and Hypotension RESPIRATORY: Positive Sleep Apnea GASTROINTESTINAL: Positive Gastrointestinal Disorders, Gastrointestinal Bleed, Ulcer and Obesity GENITOURINARY: Positive Genitourinary Disorders, Renal Disease and Dialysis ENDOCRINE: Positive Endocrine Disorders HEMATOLOGIC: Positive Blood Disorders and Anemia PSYCHO/SOCIAL: Positive Depression and Anxiety OTHER HISTORY: Positive Chicken Pox Family History FAMILY HISTORY: Positive Family Psychiatric Problems and Family Respiratory Disorders; Negative Family Cardiac Disorders, Family Gastrointestinal Problems, Family Cancer, Family Surgery or Family Anesthesia Reaction Surgical History SURGICAL: Positive Tonsillectomy; Negative Cardiac Surgery, Open Heart Surgery, Coronary Artery Bypass Graft, Valve Replacement, Coronary Stent, Cardiac Catheterization, Pacemaker, Angiogram, Auto Implanted Cardiovert Defib, Carotid Endarterectomy, Endocrine Surgery, Thyroidectomy, Ear Surgery, Tympanostomy Tube, Eye Surgery, Nose Surgery, Oral Surgery, Adenoidectomy, Cochlear Implant, Corneal Transplant, Throat Surgery, Abdominal Surgery, Tracheostomy, Gastric Bypass Surgery, Gastrostomy, Bowel Surgery, Nephrectomy, Transurethral Resection, Joint Replacement, Amputation, Open Reduction Internal Fixation, Arthroscopy, Neurologic Surgery, Brain Shunt or Vasectomy Social History SMOKING STATUS: Never smoker SUBSTANCE USE: does not use ALCOHOL: Never ED Exam Narrative Physical exam: Physical Exam General: Disheveled male with foul body odor. Awake and in no acute distress. Conversational and non-toxic appearing. HEENT: Normocephalic, atraumatic, mucous membranes moist. Heart: Regular rate and rhythm, no murmurs. Lungs: Clear to auscultation with no wheezing or crackles. Abdomen: Soft, obese, nondistended, nontender, positive bowel sounds. ?No guarding or rebound tenderness. Neurologic: Alert and oriented x3, no gross neurological deficit, and patient able to move all 4 extremities. Extremities: Chronic lower extremity non-pitting edema. Skin: No rash or ecchymoses. Course Course Course Narrative: 22:[address] 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 Patient is able to get blood now, however. Ordered 1 PRBC for transfusion now. Patient will be held in ED overnight. Quality Measures none Orders Category Date Time Status EKG (ED ONLY) *Do not use* NOW Care 10/24/24 14:37 Completed Post Transfusion H&H X1 Care 10/24/24 22:40 Active Transfuse,blood/blood products NOW Care 10/24/24 22:29 Active Consult to Nephrology Stat Cons 10/24/24 22:30 Ordered EKG (ED Only) Stat Exams 10/24/24 14:36 Ordered CBC Stat Lab 10/24/24 16:10 Completed CMP [Comprehensive Metabolic Panel] Stat Lab 10/24/24 14:36 Completed Free T3 Stat Lab 10/24/24 14:36 Completed PT [Prothrombin Time with INR] Stat Lab 10/24/24 16:10 Completed PTT [Partial Thromboplastin Time] Stat Lab 10/24/24 16:10 Completed TSH [Thyroid Stimulating Hormone] Stat Lab 10/24/24 14:36 Completed Type and Screen Stat Lab 10/24/24 16:10 Results prbc [Red Blood Cells] Stat Lab 10/24/24 16:10 Results Vital Signs Vital signs: Vital Signs Temperature 97.6 F 10/24/24 14:23 Pulse Rate 75 10/24/24 14:23 Respiratory Rate 20 10/24/24 14:23 Blood Pressure 133/65 H 10/24/24 14:23 Pulse Oximetry (%) 96 10/24/24 14:23 Oxygen Delivery Method Room Air 10/24/24 14:23 Weakness Patient data External records reviewed:: [facility] previous records Clinical information provided by:: patient Social determinants that could affect healthcare access:: other (specify) (transportation) Patient has the following chronic illnesses:: As above How is presenting disease/condition affected by chronic disease/condition?: exacerbated by Evaluation data The following diagnostics were reviewed and interpreted by me:: lab results Lab and/or radiology exams considered but not ordered:: None Interpretation Summary: Chronic normocytic anemia Medications / Prescriptions Medications or Prescriptions considered but not ordered:: None Medication administrations:: 1 PRBC Consultations Consultation(s) initiated? (list below): Yes Consultation #1 (Physician, Specialty, Details): Dr. Cotton (primary Cbx Operator) 20:[address] Cotton regarding dialysis, patient will receive in the AM. Patient to receive 1 PRBC. Diagnosis Weakness Differential Diagnosis: anemia Most likely diagnosis given after review of the tests above:: Iron deficiency anemia, anemia of chronic disease, missed dialysis, uremia Admission Indicated Admission indicated?: not indicated Explain why admission is indicated or not indicated:: Patient needs blood transfusion and dialysis, will get dialysis in AM. Admission Request Was there a request for admission?: No Disposition Plan Disposition Plan: Discharge Discharge Attestation Discharge Attestation: The patient and all family members were given an opportunity to ask questions and understood the discharge instructions. Discharge instructions specifically effects, indications for sooner follow up or return to the emergency department, and the expected course of current diagnosis. Patient condition: Stable Discharge Plan Plan Patient Disposition: HOME (Self Care) Patient condition on transfer: Stable Prescriptions/Referrals Prescriptions/Med Rec: No Action furosemide 40 mg Tablet 40 mg PO QDAY carvedilol 12.5 mg Tablet 12.5 mg PO BID Rx Instructions: must administer with a meal/food levothyroxine 100 mcg tablet 112 mcg PO DAILY diphenhydramine HCl [Benadryl] 25 mg Capsule 25 mg PO TID PRN (Reason: Itching) Mere-Martín Rx 1-60-300 mg-mg-mcg tablet 1 tab PO QDAY Patient Comments: TAKE 1 TABLET BY MOUTH DAILY Velphoro 500 mg tablet,chewable 500 mg PO QID Patient Comments: CHEW AND SWALLOW 1 TABLET BY MOUTH FOUR TIMES DAILY WITH FOOD Mere-Martín 0.8 mg Tablet 1 tab PO QDAY Qty: 30 0RF Referrals: Shad Cotton MD [Primary Care Provider] - In 1 week Problem List Clinical Impression: Chronic iron deficiency anemia, ESRD on hemodialysis, Missed dialysis Patient/Caregiver Discharge Instructions Education Materials: Anemia and Kidney Disease Print Language: Guamanian Stand Alone Forms: Bridget Award Info., Patient Portal Info Letter
[2024-10-24 23:07] VITALS: BP 122/71; PULSE 68; RESP 17; O2SAT 100
[2024-10-25] VITALS (32 sets, daily range): BP systolic 110–143; BP diastolic 49–77; PULSE 59–711; RESP 15–19; TEMP 36.4–36.7; O2SAT 95–100
--- NOTE | 2024-10-25 12:38 | PC.NURSE ---
Dialysis completed for 3.5 hrs, tolerated well.? Pt awake, A/O x4, no complaint of pain.? Respiration even and unlabored? O2 sat 98% room air.? Able to removed 3200 ml of fluid net.? Gave 1 unit prbc during HD. No s/s of reaction or side effects noted. Post tx BP 143/64, HR 69, Temp 97.5.?? Pt back in ER rm 17. Call light within reached. Pressure dressing on left upper arm AV fistula clean/dry/intact. No bleeding.? Report given to Yvonne WEST
--- NOTE | 2024-10-25 13:04 | PC.NURSE ---
RN SPOKE TO PHARMACY AND REQUESTED PT;S EPOETIN AARON-EBX INJ MED ORDER. PER PHARMACY, WILL BRING IT TO ED SOON.
[2024-10-25] MEDS: EPOETIN ALFA-EPBX INJ 10,000 UNIT/ML VIAL (NON-ESRD) 10000 UNIT SC (13:30)
== END 2024-10-25 13:36 | disposition home or self-care (01) ==
PROVIDERS: Physician Assistant; Emergency Provider Emergency Medicine; PCP Internal Medicine
DX: E11.22 Type 2 diabetes mellitus with diabetic chronic kidney disease (principal); I12.0 Hypertensive chronic kidney disease with stage 5 chronic kidney disease or end stage renal disease; N18.6 End stage renal disease; D63.1 Anemia in chronic kidney disease; Z99.2 Dependence on renal dialysis; Z91.158 Patient's noncompliance with renal dialysis for other reason
CPT/HCPCS: 36415; 36430; 80053; 84443; 84481; 85025; 85610; 85730; 86850; 86870; 86900; 86901; 86921; 86922; 90935; 93005; 96372; 99285; P9016; Q5106; G0257

== ENCOUNTER 2024-11-10 17:23 | Emergency (ER) | payer MEDICARE, MEDICAID, SELFPAY ==
[2024-11-10 17:24] VITALS: BMI 30.8
[2024-11-10 18:10] VITALS: BP 131/60; PULSE 72; RESP 18; TEMP 37.2; O2SAT 95
--- NOTE | 2024-11-10 18:16 | PD.EDRECHK ---
ED Recheck Abnl Lab Rx-RME/HPI General Chief Complaint: Recheck/Abnormal Lab/Rx Stated Complaint: Blood Transfusion Time Seen by Provider: 11/10/24 18:15 Arrival date/time: 11/10/24 17:23 RME / HPI RME / HPI narrative: 59-year-old male patient with significant history of chronic anemia, end-stage renal disease on hemodialysis, was sent to us by hemodialysis for blood transfusion. Patient had hemodialysis yesterday and was told that hemoglobin was noted to be 6. Patient's been complaining of worsening generalized body weakness dyspnea on exertion and easy fatigability. Patient denies any bleeding, denies any vomiting blood or black-colored stool. Related Data Home Medications ?Medication ?Instructions ?Recorded ?Confirmed diphenhydramine HCl 25 mg capsule 25 mg PO TID PRN Itching 08/20/22 03/31/24 (Benadryl) vitamin B comp no.3-folic acid 1 1 tab PO QDAY 08/20/22 03/31/24 mg-vit C 60 mg-biotin 300 mcg tablet ([facility]) sucroferric oxyhydroxide 500 mg 500 mg PO QID 10/03/22 03/31/24 chewable tablet (Velphoro) carvedilol 12.5 mg tablet 12.5 mg PO BID 08/04/23 03/31/24 furosemide 40 mg tablet 40 mg PO QDAY 08/04/23 03/31/24 levothyroxine 100 mcg tablet 112 mcg PO DAILY 08/04/23 03/31/24 Previous Rx's ?Medication ?Instructions ?Recorded vitamin B complex-vitamin C-folic 1 tab PO QDAY #30 tabs 01/11/23 acid 0.8 mg tablet ([facility]) Allergies Allergy/AdvReac Type Severity Reaction Status Date / Time adhesive tape Allergy Severe Rash Verified 10/24/24 14:04 Review of Systems Review of Systems Narrative Review of Systems: Review of system reviewed and within normal limits except mentioned in HPI ED Exam Narrative Physical exam: VITAL SIGNS: Reviewed. GENERAL APPEARANCE: Alert and interactive, follows commands, no acute distress, HEAD AND FACE: Non-traumatic. ENT: PERRL, pale conjunctiva, eyelid no trauma, Mucous membrane moist. NECK: Supple, nontender, no nuchal rigidity. CHEST: No tenderness, no crepitus, no paradoxical movement, no retractions. LUNGS: Clear, well ventilated, symmetric, no rales, no wheezing, no ronchi, no stridor, good breath sounds bilaterally. HEART: Regular rate, regular rhythm, no murmur, no gallops. ABDOMEN: Soft, positive bowel sounds, nondistended, no guarding, nontender, no rebound, no masses, RECTAL: Deferred. GENITAL: Deferred. NEUROLOGICAL: Gross motor function intact sensory function intact, Appropriate for age. MUSCULOSKELETAL: low back nontender, full range of motion. EXTREMITIES:+ +2 lower extremity edema, nontender, full range of motion. SKIN: Color pale, dry, no rash, no lacerations, no abrasions, no contusions. LYMPHATICS: Deferred. Course Quality Measures none Orders Category Date Time Status Transfuse,blood/blood products ONCE Care 11/10/24 18:15 Completed Antibody Identification Stat Lab 11/10/24 18:33 Completed CBC [CBC] Stat Lab 11/10/24 18:33 Completed CMP [Comprehensive Metabolic Panel] Stat Lab 11/10/24 18:33 Completed PTT [Partial Thromboplastin Time] Stat Lab 11/10/24 18:33 Completed Type and Screen Stat Lab 11/10/24 18:33 Completed prbc [Red Blood Cells] Stat Lab 11/10/24 18:33 Completed Vital Signs Vital signs: Vital Signs Temperature 98.9 F 11/10/24 18:10 Pulse Rate 72 11/10/24 18:10 Respiratory Rate 18 11/10/24 18:10 Blood Pressure 131/60 H 11/10/24 18:10 Pulse Oximetry (%) 95 11/10/24 18:10 Oxygen Delivery Method Room Air 11/10/24 18:10 Recheck / Abnormal Lab / Rx MDM Narrative MDM Narrative:: 59-year-old male patient with significant history of chronic anemia, end-stage renal disease on hemodialysis, was sent to us by hemodialysis for blood transfusion. Patient had hemodialysis yesterday and was told that hemoglobin was noted to be 6. Patient's been complaining of worsening generalized body weakness dyspnea on exertion and easy fatigability. Patient denies any bleeding, denies any vomiting blood or black-colored stool. Patient's hemoglobin today was noted to be 5.7, hematocrit of 17. Patient received 2 units of packed RBC Patient appears nontoxic and hemodynamically stable. Patient discharged home and instructed to follow-up with primary care provider in 24 to 48 hours. Instructed to return to the emergency department immediately if worsening of symptoms Patient data External records reviewed:: None Clinical information provided by:: patient Social determinants that could affect healthcare access:: none Patient has the following chronic illnesses:: ESRD, history of chronic and recurrent anemia How is presenting disease/condition affected by chronic disease/condition?: exacerbated by Evaluation data The following diagnostics were reviewed and interpreted by me:: lab results Lab and/or radiology exams considered but not ordered:: None Interpretation Summary: See results in MDM Medications / Prescriptions Medications or Prescriptions considered but not ordered:: None Medication administrations:: None Consultations Consultation(s) initiated? (list below): No Diagnosis Recheck Differential Diagnosis: other (Anemia of chronic disease, ESRD iron deficiency anemia) Most likely diagnosis given after review of the tests above:: Anemia chronic disease Admission Indicated Admission indicated?: not indicated Admission Request Was there a request for admission?: No Disposition Plan Disposition Plan: Discharge Discharge Attestation Discharge Attestation: The patient and all family members were given an opportunity to ask questions and understood the discharge instructions. Discharge instructions specifically effects, indications for sooner follow up or return to the emergency department, and the expected course of current diagnosis. Patient condition: Stable Discharge Plan Plan Patient Disposition: HOME (Self Care) Disposition Comment: Stable Prescriptions/Referrals Prescriptions/Med Rec: No Action furosemide 40 mg Tablet 40 mg PO QDAY carvedilol 12.5 mg Tablet 12.5 mg PO BID Rx Instructions: must administer with a meal/food levothyroxine 100 mcg tablet 112 mcg PO DAILY diphenhydramine HCl [Benadryl] 25 mg Capsule 25 mg PO TID PRN (Reason: Itching) [facility] Rx 1-60-300 mg-mg-mcg tablet 1 tab PO QDAY Patient Comments: TAKE 1 TABLET BY MOUTH DAILY Velphoro 500 mg tablet,chewable 500 mg PO QID Patient Comments: CHEW AND SWALLOW 1 TABLET BY MOUTH FOUR TIMES DAILY WITH FOOD [facility] 0.8 mg Tablet 1 tab PO QDAY Qty: 30 0RF Referrals: No Primary/Family,Physician [Primary Care Provider] - In 1 week Problem List Clinical Impression: Anemia, ESRD on hemodialysis Patient/Caregiver Discharge Instructions Discharge Activity: activity as tolerated Education Materials: Anemia Additional Instructions: Thank you for the opportunity for serving you today. You are stable for discharged . You are advised to: Follow-up with your PCP in 1 to 2 days Return to ED for worsening of symptoms Print Language: Polish Stand Alone Forms: Bridget Award Info., Patient Portal Info Letter PA/ROBOTICS ENGINEER Supervising Physician ALEKSANDR/VINCENT Supervising Physician: MD Jef
[2024-11-10 18:55] LABS: Basophils % (Auto) 1 % (0-2.5); Eosinophils # (Auto) 0.1 Thou/mm3 (0.0-0.5); Eosinophils % (Auto) 3 % (0-10); Immature Granulocytes % (Auto) 0 % (0-0); Immature Granulocytes Auto 0.01 Thou/mm3 (0.00-0.00); Lymphocytes # (Auto) 0.8 Thou/mm3 (1.0-4.8); Lymphocytes % (Auto) 22 % (10-50); Mean Corpuscular HGB Conc 33.5 g/dl (31.0-37.0); Mean Corpuscular Volume 96 fL (80-100); Monocytes # (Auto) 0.3 Thou/mm3 (0.0-0.8); Monocytes % (Auto) 8 % (0-12); Neutrophils # (Auto) 2.3 Thou/mm3 (1.8-7.7); Neutrophils % (Auto) 67 % (37-80); Nucleated Red Blood Cell % 0 /100 WBC (0); Platelet Count 80 Thou/mm3 (140-440); Red Blood Count 1.78 Miln/mm3 (4.50-5.90); White Blood Count 3.5 Thou/mm3 (3.8-10.6)
[2024-11-10 19:01] LABS: Partial Thromboplastin Time 32.2 Seconds (22.0-36.0)
[2024-11-10 19:04] LABS: Hemoglobin 5.7 g/dL (13.5-16.0)
[2024-11-10 19:18] LABS: Alanine Aminotransferase < 7 U/L (10-49); Albumin, Serum 3.4 gm/dL (3.5-5.0); Albumin/Globulin Ratio 0.9 (1.2-2.2); Alkaline Phosphatase 115 U/L (46-116); Anion Gap 10 (7-16); Aspartate Amino Transferase 11 U/L (0-34); BUN/Creatinine Ratio 6 Ratio (12-20); Bilirubin,Total 0.4 mg/dL (0.3-1.2); Blood Urea Nitrogen 29 mg/dL (9-23); Calcium 9.1 mg/dL (8.3-10.6); Calcium (Corrected) 9.6 mg/dL (8.5-10.1); Carbon Dioxide 33.1 mMol/L (20.0-31.0); Chloride 92 mMol/L (98-107); Estimated Creatinine Clearance 21.2 mL/min (>60); Globulin 3.7 gm/dL (2.3-3.5); Glucose 94 mg/dL (74-106); Osmolality,Calculated 275 (275-295); Potassium 3.8 mMol/L (3.4-5.1); Sodium 135 mMol/L (136-145); Total Protein 7.1 gm/dL (5.7-8.2); eGFR 13 See Note
[2024-11-11] VITALS (13 sets, daily range): BP systolic 118–150; BP diastolic 59–88; PULSE 60–66; RESP 16–18; TEMP 36.6–37.1; O2SAT 95–100
== END 2024-11-11 06:11 | disposition home or self-care (01) ==
PROVIDERS: Nurse Practitioner Family; Emergency Provider Emergency Medicine
DX: N18.6 End stage renal disease (principal); D63.1 Anemia in chronic kidney disease; Z99.2 Dependence on renal dialysis
CPT/HCPCS: 36415; 36430; 80053; 85025; 85730; 86850; 86870; 86900; 86901; 86921; 86922; 99285; P9016

== ENCOUNTER 2024-12-08 17:05 | Emergency (ER) | payer MEDICARE, MEDICAID, SELFPAY ==
[2024-12-08] VITALS (9 sets, daily range): BP systolic 107–141; BP diastolic 48–73; PULSE 72–86; RESP 14–20; TEMP 36.7–36.8; O2SAT 95–100; BMI 39.3
--- NOTE | 2024-12-08 17:12 | PD.EDRME ---
Rapid Medical Screening Exam RME Arrival date/time: 12/08/24 17:05 59-year-old male ESRD on dialysis presents to the emergency department today for complaints of low hemoglobin requiring transfusion Chief Complaint: Recheck/Abnormal Lab/Rx
--- NOTE | 2024-12-08 17:33 | PD.EDRECHK ---
ED Recheck Abnl Lab Rx-E/HPI General Chief Complaint: Recheck/Abnormal Lab/Rx Stated Complaint: ANEMIC; NEEDS BLOOD Time Seen by Provider: 12/08/24 17:33 Arrival date/time: 12/08/24 17:05 RME / HPI RME / HPI narrative: 59-year-old male patient with significant history of end-stage renal disease on hemodialysis, patient had hemodialysis yesterday, and was told that hemoglobin was 6.3. Patient is known to this emergency room for multiple blood transfusion related to end-stage renal disease. Patient is denying any vomiting blood or blood in the stool. Only complaint is generalized body weakness. Related Data Home Medications ?Medication ?Instructions ?Recorded ?Confirmed diphenhydramine HCl 25 mg capsule 25 mg PO TID PRN Itching 08/20/22 03/31/24 (Benadryl) vitamin B comp no.3-folic acid 1 1 tab PO QDAY 08/20/22 03/31/24 mg-vit C 60 mg-biotin 300 mcg tablet ([facility]) sucroferric oxyhydroxide 500 mg 500 mg PO QID 10/03/22 03/31/24 chewable tablet (Velphoro) carvedilol 12.5 mg tablet 12.5 mg PO BID 08/04/23 03/31/24 furosemide 40 mg tablet 40 mg PO QDAY 08/04/23 03/31/24 levothyroxine 100 mcg tablet 112 mcg PO DAILY 08/04/23 03/31/24 Previous Rx's ?Medication ?Instructions ?Recorded vitamin B complex-vitamin C-folic 1 tab PO QDAY #30 tabs 01/11/23 acid 0.8 mg tablet ([facility]) Allergies Allergy/AdvReac Type Severity Reaction Status Date / Time adhesive tape Allergy Severe Rash Verified 12/08/24 17:07 Review of Systems Review of Systems Narrative Review of Systems: Review of system reviewed and within normal limits except mentioned in HPI ED Exam Narrative Physical exam: VITAL SIGNS: Reviewed. GENERAL APPEARANCE: Alert and interactive, follows commands, no acute distress, HEAD AND FACE: Non-traumatic. ENT: PERRL, pale conjunctiva, eyelid no trauma, Mucous membrane moist. NECK: Supple, nontender, no nuchal rigidity. CHEST: No tenderness, no crepitus, no paradoxical movement, no retractions. LUNGS: Clear, well ventilated, symmetric, no rales, no wheezing, no ronchi, no stridor, good breath sounds bilaterally. HEART: Regular rate, regular rhythm, no murmur, no gallops. ABDOMEN: Soft, positive bowel sounds, nondistended, no guarding, nontender, no rebound, no masses, RECTAL: Deferred. GENITAL: Deferred. NEUROLOGICAL: Gross motor function intact sensory function intact, Appropriate for age. MUSCULOSKELETAL: low back nontender, full range of motion. EXTREMITIES: Nontender, full range of motion. SKIN: Color pale, dry, no rash, no lacerations, no abrasions, no contusions. LYMPHATICS: Deferred. Course Quality Measures none Orders Category Date Time Status Transfuse,blood/blood products NOW Care 12/08/24 17:11 Completed CBC Stat Lab 12/08/24 17:29 Completed Comprehensive Metabolic Panel Stat Lab 12/08/24 17:29 Completed Partial Thromboplastin Time Stat Lab 12/08/24 17:29 Completed Path Review Blood Smear Stat Lab 12/08/24 17:29 Completed Prothrombin Time with INR Stat Lab 12/08/24 17:29 Completed Type and Screen Stat Lab 12/08/24 17:29 Completed prbc [Red Blood Cells] Stat Lab 12/08/24 17:29 Completed Vital Signs Vital signs: Vital Signs Temperature 98.1 F 12/08/24 17:30 Pulse Rate 86 12/08/24 17:30 Respiratory Rate 20 12/08/24 17:30 Blood Pressure 107/58 L 12/08/24 17:30 Pulse Oximetry (%) 95 12/08/24 17:30 Oxygen Delivery Method Room Air 12/08/24 17:30 Recheck / Abnormal Lab / Rx MDM Narrative MDM Narrative:: 59-year-old male patient with significant history of end-stage renal disease on hemodialysis, patient had hemodialysis yesterday, and was told that hemoglobin was 6.3. Patient is known to this emergency room for multiple blood transfusion related to end-stage renal disease. Patient is denying any vomiting blood or blood in the stool. Only complaint is generalized body weakness. Patient's hemoglobin was noted to be 6.6, hematocrit of 19.2 creatinine 6.5 BUN of 36 potassium is normal Patient received 2 units of packed RBC with no complication noted. Patient stable for discharge home Patient data External records reviewed:: None Clinical information provided by:: patient Social determinants that could affect healthcare access:: none Patient has the following chronic illnesses:: ESRD hypertension How is presenting disease/condition affected by chronic disease/condition?: exacerbated by Evaluation data The following diagnostics were reviewed and interpreted by me:: lab results Lab and/or radiology exams considered but not ordered:: None Interpretation Summary: See results in MDM Medications / Prescriptions Medications or Prescriptions considered but not ordered:: None Medication administrations:: 2 units of packed RBC Consultations Consultation(s) initiated? (list below): No Diagnosis Recheck Differential Diagnosis: other (Anemia, iron deficiency anemia, anemia chronic disease) Most likely diagnosis given after review of the tests above:: Anemia of chronic disease, ESRD Admission Indicated Admission indicated?: not indicated Admission Request Was there a request for admission?: No Disposition Plan Disposition Plan: Discharge Discharge Attestation Discharge Attestation: The patient was given an opportunity to ask questions and understood the discharge instructions. Discharge instructions specifically effects, indications for sooner follow up or return to the emergency department, and the expected course of current diagnosis. Patient condition: Stable Discharge Plan Plan Patient Disposition: HOME (Self Care) Prescriptions/Referrals Prescriptions/Med Rec: No Action furosemide 40 mg Tablet 40 mg PO QDAY carvedilol 12.5 mg Tablet 12.5 mg PO BID Rx Instructions: must administer with a meal/food levothyroxine 100 mcg tablet 112 mcg PO DAILY diphenhydramine HCl [Benadryl] 25 mg Capsule 25 mg PO TID PRN (Reason: Itching) [facility] Rx 1-60-300 mg-mg-mcg tablet 1 tab PO QDAY Patient Comments: TAKE 1 TABLET BY MOUTH DAILY Velphoro 500 mg tablet,chewable 500 mg PO QID Patient Comments: CHEW AND SWALLOW 1 TABLET BY MOUTH FOUR TIMES DAILY WITH FOOD [facility] 0.8 mg Tablet 1 tab PO QDAY Qty: 30 0RF Referrals: Shad Cotton MD [Primary Care Provider] - In 1 week Problem List Clinical Impression: Anemia, ESRD on hemodialysis Patient/Caregiver Discharge Instructions Discharge Activity: activity as tolerated Education Materials: Anemia Additional Instructions: Thank you for the opportunity for serving you today. You are stable for discharged . You are advised to: Follow-up with your PCP in 1 to 2 days Return to ED for worsening of symptoms Print Language: Slovenian Stand Alone Forms: Bridget Award Info., Patient Portal Info Letter PA/TRUCK TRAILER FINAL INSPECTOR Supervising Physician PA/TRUCK TRAILER FINAL INSPECTOR Supervising Physician: MD chase
[2024-12-08 17:51] LABS: Basophils % (Auto) 1 % (0-2.5); Eosinophils # (Auto) 0.1 Thou/mm3 (0.0-0.5); Eosinophils % (Auto) 2 % (0-10); Immature Granulocytes % (Auto) 1 % (0-0); Immature Granulocytes Auto 0.03 Thou/mm3 (0.00-0.00); Lymphocytes # (Auto) 0.9 Thou/mm3 (1.0-4.8); Lymphocytes % (Auto) 15 % (10-50); Mean Corpuscular HGB Conc 34.4 g/dl (31.0-37.0); Mean Corpuscular Hemoglobin 33.2 pg (25.0-35.0); Mean Corpuscular Volume 97 fL (80-100); Monocytes # (Auto) 0.5 Thou/mm3 (0.0-0.8); Monocytes % (Auto) 9 % (0-12); Neutrophils # (Auto) 4.1 Thou/mm3 (1.8-7.7); Neutrophils % (Auto) 73 % (37-80); Nucleated Red Blood Cell % 0 /100 WBC (0); RDW Standard Deviation 58.8 fL (35.1-43.9); Red Blood Count 1.99 Miln/mm3 (4.50-5.90); White Blood Count 5.6 Thou/mm3 (3.8-10.6)
[2024-12-08 17:52] LABS: Hematocrit 19.2 % (41.0-53.0)
[2024-12-08 18:00] LABS: Hemoglobin 6.6 g/dL (13.5-16.0); Platelet Count 68 Thou/mm3 (140-440)
[2024-12-08 18:07] LABS: INR 1.2 (0.9-1.3); Partial Thromboplastin Time 29.3 Seconds (22.0-36.0); Prothrombin Time 12.9 Seconds (9.0-12.2)
[2024-12-08 18:09] LABS: Slide Review Platelets confirmed
[2024-12-08 18:21] LABS: Alanine Aminotransferase < 7 U/L (10-49); Albumin, Serum 3.7 gm/dL (3.5-5.0); Albumin/Globulin Ratio 0.9 (1.2-2.2); Alkaline Phosphatase 112 U/L (46-116); Anion Gap 13 (7-16); Aspartate Amino Transferase < 10 U/L (0-34); BUN/Creatinine Ratio 6 Ratio (12-20); Bilirubin,Total 0.4 mg/dL (0.3-1.2); Blood Urea Nitrogen 36 mg/dL (9-23); Calcium 9.5 mg/dL (8.3-10.6); Calcium (Corrected) 9.7 mg/dL (8.5-10.1); Carbon Dioxide 30.3 mMol/L (20.0-31.0); Chloride 94 mMol/L (98-107); Creatinine (Component) 6.5 mg/dL (0.6-1.3); Estimated Creatinine Clearance 18.4 mL/min (>60); Globulin 3.9 gm/dL (2.3-3.5); Glucose 88 mg/dL (74-106); Osmolality,Calculated 281 (275-295); Potassium 4.7 mMol/L (3.4-5.1); Sodium 137 mMol/L (136-145); Total Protein 7.6 gm/dL (5.7-8.2); eGFR 9 See Note
[2024-12-09 00:54] VITALS: BP 150/66; PULSE 73; RESP 20; TEMP 36.8; O2SAT 97
[2024-12-09 00:59] VITALS: BP 150/66; PULSE 75; RESP 17; TEMP 36.9; O2SAT 97
[2024-12-09 03:41] LABS: Path Review Blood Smear Sent to Pathologist
[2024-12-09 06:09] VITALS: BP 154/87; PULSE 73; RESP 16; TEMP 36.9; O2SAT 99
== END 2024-12-09 06:11 | disposition home or self-care (01) ==
PROVIDERS: Nurse Practitioner Primary Care; Emergency Provider Emergency Medicine; PCP Internal Medicine
DX: N18.6 End stage renal disease (principal); D63.1 Anemia in chronic kidney disease; Z99.2 Dependence on renal dialysis
CPT/HCPCS: 36415; 36430; 80053; 85025; 85610; 85730; 86850; 86870; 86900; 86901; 86902; 86921; 86922; 99285; P9016

== ENCOUNTER 2024-12-17 17:25 | Emergency (ER) | payer MEDICARE, MEDICAID, SELFPAY ==
[2024-12-17] VITALS (10 sets, daily range): BP systolic 108–133; BP diastolic 53–76; PULSE 65–95; RESP 18–20; TEMP 36.2–36.6; O2SAT 95–100; BMI 39.0
--- NOTE | 2024-12-17 17:35 | PD.EDRECHK ---
ED Recheck Abnl Lab Rx-RME/HPI General Chief Complaint: Recheck/Abnormal Lab/Rx Stated Complaint: LOW HGB Time Seen by Provider: 12/17/24 17:34 Arrival date/time: 12/17/24 17:25 RME / HPI RME / HPI narrative: 59-year-old male patient with significant history of hypertension, end-stage renal disease, chronic anemia, came in for evaluation regarding request for blood transfusion. Patient was sent to us by dialysis center for blood transfusion, he did not get his dialysis yesterday due to anemia below 7 hemoglobin. Patient is scheduled for next hemodialysis this coming Thursday. Currently patient is denying any swelling to the legs or shortness of breath. Denies any chest pain. Patient is ambulatory. Related Data Home Medications ?Medication ?Instructions ?Recorded ?Confirmed diphenhydramine HCl 25 mg capsule 25 mg PO TID PRN Itching 08/20/22 03/31/24 (Benadryl) vitamin B comp no.3-folic acid 1 1 tab PO QDAY 08/20/22 03/31/24 mg-vit C 60 mg-biotin 300 mcg tablet ([facility]) sucroferric oxyhydroxide 500 mg 500 mg PO QID 10/03/22 03/31/24 chewable tablet (Velphoro) carvedilol 12.5 mg tablet 12.5 mg PO BID 08/04/23 03/31/24 furosemide 40 mg tablet 40 mg PO QDAY 08/04/23 03/31/24 levothyroxine 100 mcg tablet 112 mcg PO DAILY 08/04/23 03/31/24 Previous Rx's ?Medication ?Instructions ?Recorded vitamin B complex-vitamin C-folic 1 tab PO QDAY #30 tabs 01/11/23 acid 0.8 mg tablet ([facility]) Allergies Allergy/AdvReac Type Severity Reaction Status Date / Time adhesive tape Allergy Severe Rash Verified 12/08/24 17:07 Review of Systems Review of Systems Narrative Review of Systems: Review of system reviewed and within normal limits except mentioned in HPI ED Exam Narrative Physical exam: VITAL SIGNS: Reviewed. GENERAL APPEARANCE: Alert and interactive, follows commands, no acute distress, HEAD AND FACE: Non-traumatic. ENT: PERRL, pale conjunctiva, eyelid no trauma, Mucous membrane moist. NECK: Supple, nontender, no nuchal rigidity. CHEST: No tenderness, no crepitus, no paradoxical movement, no retractions. LUNGS: Clear, well ventilated, symmetric, no rales, no wheezing, no ronchi, no stridor, good breath sounds bilaterally. HEART: Regular rate, regular rhythm, no murmur, no gallops. ABDOMEN: Soft, positive bowel sounds, nondistended, no guarding, nontender, no rebound, no masses, RECTAL: Deferred. GENITAL: Deferred. NEUROLOGICAL: Gross motor function intact sensory function intact, Appropriate for age. MUSCULOSKELETAL: low back nontender, full range of motion. EXTREMITIES: Nontender, full range of motion. Bilateral lower extremity edema positive SKIN: Color pale, dry, no rash, no lacerations, no abrasions, no contusions. LYMPHATICS: Deferred. Course Quality Measures none Orders Category Date Time Status Transfuse,blood/blood products ONCE Care 12/17/24 17:34 Active CBC [CBC] Stat Lab 12/17/24 17:49 Completed CMP [Comprehensive Metabolic Panel] Stat Lab 12/17/24 17:49 Completed Type and Screen Stat Lab 12/17/24 17:49 Results prbc [Red Blood Cells] Stat Lab 12/17/24 17:49 Results Vital Signs Vital signs: Vital Signs Temperature 97.9 F 12/17/24 17:33 Pulse Rate 82 12/17/24 17:33 Respiratory Rate 20 12/17/24 17:33 Blood Pressure 125/53 L 12/17/24 17:33 Pulse Oximetry (%) 95 12/17/24 17:33 Oxygen Delivery Method Room Air 12/17/24 17:33 Recheck / Abnormal Lab / Rx MDM Narrative MDM Narrative:: 59-year-old male patient with significant history of hypertension, end-stage renal disease, chronic anemia, came in for evaluation regarding request for blood transfusion. Patient was sent to us by dialysis center for blood transfusion, he did not get his dialysis yesterday due to anemia below 7 hemoglobin. Patient is scheduled for next hemodialysis this coming Thursday. Currently patient is denying any swelling to the legs or shortness of breath. Denies any chest pain. Patient is ambulatory. Patient's hemoglobin today was noted to be 6.8 hematocrit of 19.6. Patient received 2 units of packed RBC with no complication noted. Patient tolerated the procedure well. Patient appears nontoxic and hemodynamically stable. Patient discharged home and instructed to follow-up with primary care provider in 24 to 48 hours. Instructed to return to the emergency department immediately if worsening of symptoms Patient data External records reviewed:: None Clinical information provided by:: none Social determinants that could affect healthcare access:: none Patient has the following chronic illnesses:: Chronic anemia, ESRD, hypertension How is presenting disease/condition affected by chronic disease/condition?: exacerbated by Evaluation data The following diagnostics were reviewed and interpreted by me:: lab results Lab and/or radiology exams considered but not ordered:: None Interpretation Summary: See results in MDM Medications / Prescriptions Medications or Prescriptions considered but not ordered:: None Medication administrations:: 2 units of packed RBC given Consultations Consultation(s) initiated? (list below): No Diagnosis Recheck Differential Diagnosis: other (Anemia anemia chronic disease, ESRD) Most likely diagnosis given after review of the tests above:: Anemia of chronic disease Admission Indicated Admission indicated?: not indicated Explain why admission is indicated or not indicated:: None Admission Request Was there a request for admission?: No Disposition Plan Disposition Plan: Discharge Discharge Attestation Discharge Attestation: The patient was given an opportunity to ask questions and understood the discharge instructions. Discharge instructions specifically effects, indications for sooner follow up or return to the emergency department, and the expected course of current diagnosis. Patient condition: Stable Discharge Plan Plan Patient Disposition: HOME (Self Care) Disposition Comment: Stable Prescriptions/Referrals Prescriptions/Med Rec: No Action furosemide 40 mg Tablet 40 mg PO QDAY carvedilol 12.5 mg Tablet 12.5 mg PO BID Rx Instructions: must administer with a meal/food levothyroxine 100 mcg tablet 112 mcg PO DAILY diphenhydramine HCl [Benadryl] 25 mg Capsule 25 mg PO TID PRN (Reason: Itching) [facility] Rx 1-60-300 mg-mg-mcg tablet 1 tab PO QDAY Patient Comments: TAKE 1 TABLET BY MOUTH DAILY Velphoro 500 mg tablet,chewable 500 mg PO QID Patient Comments: CHEW AND SWALLOW 1 TABLET BY MOUTH FOUR TIMES DAILY WITH FOOD [facility] 0.8 mg Tablet 1 tab PO QDAY Qty: 30 0RF Referrals: Shad Cotton MD [Primary Care Provider] - In 1 week Problem List Clinical Impression: Anemia, ESRD on hemodialysis Patient/Caregiver Discharge Instructions Discharge Activity: activity as tolerated Education Materials: Anemia Additional Instructions: Thank you for the opportunity for serving you today. You are stable for discharged . You are advised to: Follow-up with your PCP in 1 to 2 days Return to ED for worsening of symptoms Print Language: Thai Stand Alone Forms: Bridget Award Info., Patient Portal Info Letter PA/LIFE SKILLS SPECIALIST Supervising Physician PA/LIFE SKILLS SPECIALIST Supervising Physician: MD Ana
[2024-12-17 18:01] LABS: Basophils % (Auto) 1 % (0-2.5); Eosinophils # (Auto) 0.2 Thou/mm3 (0.0-0.5); Eosinophils % (Auto) 4 % (0-10); Immature Granulocytes % (Auto) 0 % (0-0); Immature Granulocytes Auto 0.01 Thou/mm3 (0.00-0.00); Lymphocytes # (Auto) 0.8 Thou/mm3 (1.0-4.8); Lymphocytes % (Auto) 15 % (10-50); Mean Corpuscular HGB Conc 34.7 g/dl (31.0-37.0); Mean Corpuscular Hemoglobin 32.1 pg (25.0-35.0); Mean Corpuscular Volume 93 fL (80-100); Monocytes # (Auto) 0.4 Thou/mm3 (0.0-0.8); Monocytes % (Auto) 8 % (0-12); Neutrophils # (Auto) 3.6 Thou/mm3 (1.8-7.7); Neutrophils % (Auto) 73 % (37-80); Nucleated Red Blood Cell % 0 /100 WBC (0); Platelet Count 86 Thou/mm3 (140-440); RDW Standard Deviation 55.7 fL (35.1-43.9); Red Blood Count 2.12 Miln/mm3 (4.50-5.90); White Blood Count 4.9 Thou/mm3 (3.8-10.6)
[2024-12-17 18:15] LABS: Hematocrit 19.6 % (41.0-53.0); Hemoglobin 6.8 g/dL (13.5-16.0)
[2024-12-17 18:25] LABS: Alanine Aminotransferase < 7 U/L (10-49); Albumin, Serum 3.6 gm/dL (3.5-5.0); Albumin/Globulin Ratio 0.9 (1.2-2.2); Alkaline Phosphatase 90 U/L (46-116); Anion Gap 17 (7-16); Aspartate Amino Transferase 10 U/L (0-34); BUN/Creatinine Ratio 7 Ratio (12-20); Bilirubin,Total 0.3 mg/dL (0.3-1.2); Blood Urea Nitrogen 60 mg/dL (9-23); Calcium 9.9 mg/dL (8.3-10.6); Calcium (Corrected) 10.2 mg/dL (8.5-10.1); Carbon Dioxide 26.5 mMol/L (20.0-31.0); Chloride 92 mMol/L (98-107); Creatinine (Component) 9.1 mg/dL (0.6-1.3); Estimated Creatinine Clearance 13.1 mL/min (>60); Globulin 3.9 gm/dL (2.3-3.5); Glucose 91 mg/dL (74-106); Osmolality,Calculated 287 (275-295); Potassium 4.9 mMol/L (3.4-5.1); Sodium 135 mMol/L (136-145); Total Protein 7.5 gm/dL (5.7-8.2); eGFR 6 See Note
[2024-12-17 23:50] LABS: Path Review Blood Smear Sent to Pathologist
[2024-12-18 00:31] VITALS: BP 129/52; PULSE 62; RESP 17; TEMP 36.4; O2SAT 94
[2024-12-18 01:08] VITALS: BP 137/71; PULSE 78; RESP 18; TEMP 36.3; O2SAT 99
[2024-12-18 01:10] VITALS: BP 137/71; PULSE 71; RESP 18; TEMP 36.9; O2SAT 98
--- NOTE | 2024-12-18 01:30 | PC.NURSE ---
two units PRC done. No adverse reactions noted. Pt states he is feeling better.
== END 2024-12-18 01:34 | disposition home or self-care (01) ==
PROVIDERS: Nurse Practitioner Family; Emergency Provider Emergency Medicine; PCP Internal Medicine
DX: I12.0 Hypertensive chronic kidney disease with stage 5 chronic kidney disease or end stage renal disease (principal); N18.6 End stage renal disease; D63.1 Anemia in chronic kidney disease
CPT/HCPCS: 36415; 36430; 80053; 85025; 86850; 86900; 86901; 86902; 86921; 86922; 99285; P9016

== ENCOUNTER 2024-12-30 15:04 | Inpatient (IN) | payer MEDICARE, MEDICAID, SELFPAY ==
[2024-12-30] VITALS (9 sets, daily range): BP systolic 100–127; BP diastolic 52–83; PULSE 58–78; RESP 18–20; TEMP 36.2–36.8; O2SAT 92–100; BMI 39.0
--- NOTE | 2024-12-30 15:33 | PD.EDADULT ---
ED General RME/HPI General Chief complaint: Weakness Stated complaint: WEAKNESS Time Seen by Provider: 12/30/24 15:32 Arrival date/time: 12/30/24 15:04 RME / HPI RME / HPI narrative: 59-year-old male patient with significant history of chronic anemia, ESRD, hypothyroidism, hypertension, was brought in by EMS for evaluation regarding generalized body weakness. Onset of symptoms since last night as generalized body weakness, not feeling well, and possible infection to the left lower leg. Patient denies any fever denies any other complaints. Patient did not went to dialysis today due to generalized body weakness. Denies any vomiting. Denies any diarrhea. Patient received blood transfusion more than 3 weeks ago. Patient told me that he had a chronic wound that is not healing on the left lower extremity for more than 2 years. Before usually see internet network specialist but stopped seeing them. For the last 1 week he noticed black discoloration on the wound on the left lower leg and a new wound on the top lateral left leg. Related Data Home Medications ?Medication ?Instructions ?Recorded ?Confirmed diphenhydramine HCl 25 mg capsule 25 mg PO TID PRN Itching 08/20/22 03/31/24 (Benadryl) vitamin B comp no.3-folic acid 1 1 tab PO QDAY 08/20/22 03/31/24 mg-vit C 60 mg-biotin 300 mcg tablet ([facility]) sucroferric oxyhydroxide 500 mg 500 mg PO QID 10/03/22 03/31/24 chewable tablet (Velphoro) carvedilol 12.5 mg tablet 12.5 mg PO BID 08/04/23 03/31/24 furosemide 40 mg tablet 40 mg PO QDAY 08/04/23 03/31/24 levothyroxine 100 mcg tablet 112 mcg PO DAILY 08/04/23 03/31/24 Previous Rx's ?Medication ?Instructions ?Recorded vitamin B complex-vitamin C-folic 1 tab PO QDAY #30 tabs 01/11/23 acid 0.8 mg tablet ([facility]) Allergies Allergy/AdvReac Type Severity Reaction Status Date / Time adhesive tape Allergy Severe Rash Verified 12/08/24 17:07 Review of Systems Review of Systems Narrative Review of Systems: Review of system reviewed and within normal limits except mentioned in HPI ED Exam Narrative Physical exam: VITAL SIGNS: Reviewed. GENERAL APPEARANCE: Alert and interactive, follows commands, no acute distress, HEAD AND FACE: Non-traumatic. ENT: PERRL, pale conjunctiva, eyelid no trauma, Mucous membrane moist. NECK: Supple, nontender, no nuchal rigidity. CHEST: No tenderness, no crepitus, no paradoxical movement, no retractions. LUNGS: Clear, well ventilated, symmetric, no rales, no wheezing, no ronchi, no stridor, good breath sounds bilaterally. HEART: Regular rate, regular rhythm, no murmur, no gallops. ABDOMEN: Soft, positive bowel sounds, nondistended, no guarding, nontender, no rebound, no masses, RECTAL: Deferred. GENITAL: Deferred. NEUROLOGICAL: Gross motor function intact sensory function intact, Appropriate for age. MUSCULOSKELETAL: low back nontender, full range of motion. EXTREMITIES: Bilateral lower leg swelling, more on the left lower leg, with chronic necrotic wounds on the lower leg with foul smelling discharge, with tenderness full range of motion. SKIN: Color pink, dry, no rash, no lacerations, no abrasions, no contusions. LYMPHATICS: Deferred. Course Quality Measures none Orders Category Date Time Status Admit to Inpatient Status Routine Admission 12/30/24 18:31 Active Patient Condition Routine Admission 12/30/24 18:31 Ordered Activity as Tolerated Routine Care 12/30/24 18:32 Ordered COVID-19 Screening Questionnaire NOW Care 12/30/24 17:50 Active Decision to Admit X1 Care 12/30/24 17:50 Completed Flu & Pneumonia Vaccine Screen ONCE Care 12/30/24 18:30 Active Miscellaneous Nursing Order NOW Care 12/30/24 18:30 Active Notify provider NEEDED Care 12/30/24 18:31 Active Transfuse,blood/blood products ONCE Care 12/30/24 15:32 Active Consult to Nephrology Stat Cons 12/30/24 17:51 Ordered Referral Wound Care Stat Cons 12/30/24 17:50 Active Diet Renal Diet 12/30/24 Dinner Active XR tibia fibula LT 2V Stat Exams 12/30/24 17:44 Completed Antibody Identification Stat Lab 12/30/24 16:09 Results Blood Culture (Lab) Stat Lab 12/30/24 18:05 Received CBC AM DRAW Lab 12/31/24 05:00 Ordered CBC AM DRAW Lab 01/01/25 05:00 Ordered CBC AM DRAW Lab 01/02/25 05:00 Ordered CBC [CBC] Stat Lab 12/30/24 16:09 Completed CMP [Comprehensive Metabolic Panel] Stat Lab 12/30/24 16:09 Completed Comprehensive Metabolic Panel AM DRAW Lab 12/31/24 05:00 Ordered Comprehensive Metabolic Panel AM DRAW Lab 01/01/25 05:00 Ordered Comprehensive Metabolic Panel AM DRAW Lab 01/02/25 05:00 Ordered Lactate (Lactic Acid) Stat Lab 12/30/24 18:13 Completed Lipid Panel AM DRAW Lab 12/31/24 05:00 Ordered Procalcitonin Stat Lab 12/30/24 18:13 Completed Thyroid Stimulating Hormone AM DRAW Lab 12/31/24 05:00 Ordered Type and Screen Stat Lab 12/30/24 16:09 Results prbc [Red Blood Cells] Stat Lab 12/30/24 16:09 Results Acetaminophen Tab [Tylenol Tab] Med 12/30/24 18:30 Active 650 mg PO Q6H PRN HYDROmorphone INJ [Dilaudid Inj] Med 12/30/24 18:30 Active 1 mg IVP Q4H PRN HYDROmorphone INJ [Dilaudid Inj] Med 12/30/24 18:24 Discontinued 1 mg IVP X1 ONE Heparin Inj Med 12/30/24 22:00 Discontinued 5,000 unit SC Q12HR Ondansetron Inj [Zofran Inj] Med 12/30/24 18:30 Active 4 mg IV Q6H PRN Piper/Tazo 3.375 gm Premix [Zosyn] Med 12/30/24 17:43 Discontinued 3.375 gm in 50 ml IV X1 Code Status Routine Oth 12/30/24 18:30 Ordered Vital Signs Vital signs: Vital Signs Temperature 98.2 F 12/30/24 15:06 Pulse Rate 78 12/30/24 15:06 Respiratory Rate 20 12/30/24 15:06 Blood Pressure 104/52 L 12/30/24 15:06 Pulse Oximetry (%) 100 12/30/24 15:06 Oxygen Delivery Method Room Air 12/30/24 15:06 [facility] Patient data External records reviewed:: None Clinical information provided by:: patient Social determinants that could affect healthcare access:: none Patient has the following chronic illnesses:: ESRD, chronic anemia, chronic lower leg ulcer How is presenting disease/condition affected by chronic disease/condition?: exacerbated by Evaluation data The following diagnostics were reviewed and interpreted by me:: lab results and radiology exam(s) Lab and/or radiology exams considered but not ordered:: None Interpretation Summary: See results MDM Medications Medications considered but not ordered:: None Medication administrations:: Medication Administration History Acetaminophen (Acetaminophen 325 Mg Tablet) 650 mg PO Q6H PRN PRN Reason: Fever >101.5 Stop: 01/29/25 18:29 Hydromorphone HCl (Hydromorphone Inj 2 Mg/Ml Vial) 1 mg IVP Q4H PRN PRN Reason: Pain 7 - 10 Stop: 01/04/25 18:29 Ceftriaxone Sodium/Dextrose (Rocephin/D5w 1gm Iv Premix) 1 gm in 50 mls @ 100 mls/hr IV QDAY@1400 [facility] Stop: 01/06/25 18:37 Last Admin: 12/30/24 20:31 Dose: 100 mls/hr Documented By: CHASITY Levothyroxine Sodium (Levothyroxine Sodium 112 Mcg Tablet) 112 mcg PO ACBR [facility] Stop: 01/30/25 05:59 Ondansetron HCl (Ondansetron Inj 2 Mg/Ml Inj 2 Ml) 4 mg IV Q6H PRN; Protocol PRN Reason: NAUSEA OR VOMITING Stop: 01/29/25 18:29 Pharmacy Consult (Vancomycin Pharmacy To Dose 1 Each Each) 1 each IV QDAY PRN PRN Reason: PROTOCOL Stop: 01/30/25 08:59 Vitamin B Complex/Vit C/Folic Acid (Vit B12/Vit C/Fa (Nephrovite) Tablet) 1 tab PO QDAY [facility] Stop: 01/30/25 08:59 Discontinued Medications Heparin Sodium (Porcine) (Heparin Sod Inj 5000 Unit/Ml Vial) 5,000 unit SC Q12HR [facility] Stop: 01/13/25 21:59 Hydromorphone HCl (Hydromorphone Inj 2 Mg/Ml Vial) 1 mg IVP X1 ONE Stop: 12/30/24 18:25 Last Admin: 12/30/24 19:00 Dose: 1 mg Documented By: RD Piperacillin/Tazobactam/Dextrose (Zosyn) 3.375 gm in 50 mls @ 100 mls/hr IV X1 ONE Stop: 12/30/24 18:12 Last Admin: 12/30/24 18:59 Dose: 100 mls/hr Documented By: OMAR Vancomycin HCl (Vancomycin/Water 1gm Ivpb) 200 mls @ 120 mls/hr IV X1 ONE Stop: 12/30/24 20:16 Last Admin: 12/30/24 19:02 Dose: Not Given Documented By: OMAR Non-Admin Reason: Cancelled by Provider Vancomycin/Sodium Chloride (Vancomycin/Ns 1 Gm Ivpb) 200 mls @ 120 mls/hr IV X1 ONE Stop: 12/30/24 20:24 Vancomycin Zosyn Consultations Consultation(s) initiated? (list below): Yes Consultation #1 (Physician, Specialty, Details): Dr. Cotton, patient's coding educator thank you Diagnosis Differential Diagnosis ED Complaint MDM: Anemia, ESRD, infected chronic ulcer left lower leg Most likely diagnosis given after review of the tests above:: Anemia, ESRD infected chronic ulcer left lower leg Admission Indicated Admission indicated?: indicated Explain why admission is indicated or not indicated:: Patient is to be admitted for further management. Admission Request Was there a request for admission?: Yes Admission Attestation Admission request attestation: Discussed case with [Dr White] from Hospitalist service regarding admission. Discussed patients ED course, exam findings, labs, and radiology results. The Hospitalist [agrees] to accept the patient for admission. Disposition Plan Disposition Plan: Admit Medical Decision Making MDM Narrative MDM Narrative: 59-year-old male patient with significant history of hypertension ESRD, chronic anemia, came in for evaluation regarding not feeling well, and possible infection to the left lower leg. Patient denies any fever denies any other complaints. Patient did not went to dialysis today due to generalized body weakness. Denies any vomiting. Denies any diarrhea. Patient received blood transfusion more than 3 weeks ago. Patient told me that he had a chronic wound that is not healing on the left lower extremity for more than 2 years. Before usually see internet network specialist but stopped seeing them. For the last 1 week he noticed black discoloration on the wound on the left lower leg and a new wound on the top lateral left leg. Patient hemoglobin of 6.9 no leukocytosis noted. BUN of 38, creatinine of 7.2. X-ray of the tibia-fibula showed no bony abnormality noted Patient received Zosyn IV and Vanco IV. Differential Diagnosis Differential Diagnosis: Anemia, ESRD, infected chronic ulcer left lower leg Lab Data 12/30/24 16:09 12/30/24 16:09 Labs: Lab Results 12/30/24 12/30/24 Range/Units 16:09 18:13 WBC 5.9 (3.8-10.6) Thou/mm3 RBC 2.14 L (4.50-5.90) Miln/mm3 Hgb 6.9 L* (13.5-16.0) g/dL Hct 20.4 L* (41.0-53.0) % MCV 95 (80-100) fL MCH 32.2 (25.0-35.0) pg MCHC 33.8 (31.0-37.0) g/dl RDW Std Deviation 57.6 H (35.1-43.9) fL Plt Count 85 L (140-440) Thou/mm3 Neut % (Auto) 74 (37-80) % Lymph % (Auto) 13 (10-50) % [place] % (Auto) 11 (0-12) % Eos % (Auto) 1 (0-10) % Baso % (Auto) 1 (0-2.5) % Neut # (Auto) 4.3 (1.8-7.7) Thou/mm3 Lymph # (Auto) 0.8 L (1.0-4.8) Thou/mm3 [place] # (Auto) 0.7 (0.0-0.8) Thou/mm3 Eos # (Auto) 0.1 (0.0-0.5) Thou/mm3 Baso # (Auto) 0.0 (0.0-0.2) Thou/mm3 Immature Gran # (Auto) 0.04 H (0.00-0.00) Thou/mm3 Absolute Nucleated RBC 0.00 (0.00-0.00) Thou/mm3 Immature Gran % 1 H (0-0) % Nucleated RBC % 0 (0) /100 WBC Sodium 132 L (136-145) mMol/L Potassium 4.0 (3.4-5.1) mMol/L Chloride 93 L (98-107) mMol/L Carbon Dioxide 28.7 (20.0-31.0) mMol/L Anion Gap 10 (7-16) BUN 38 H (9-23) mg/dL Creatinine 7.2 H* (0.6-1.3) mg/dL Estim Creat Clear Calc 16.5 L (>60) mL/min eGFR 8 L* (60 - ) See Note BUN/Creatinine Ratio 5 L (12-20) Ratio Glucose 94 (74-106) mg/dL Calculated Osmolality 273 L (275-295) Lactic Acid 1.9 (0.4-2.0) mMol/L Calcium 9.3 (8.3-10.6) mg/dL Corrected Calcium 9.9 (8.5-10.1) mg/dL Total Bilirubin 0.5 (0.3-1.2) mg/dL AST 33 (0-34) U/L ALT 18 (10-49) U/L Alkaline Phosphatase 79 (46-116) U/L Total Protein 7.0 (5.7-8.2) gm/dL Albumin 3.3 L (3.5-5.0) gm/dL Globulin 3.7 H (2.3-3.5) gm/dL Albumin/Globulin Ratio 0.9 L (1.2-2.2) Procalcitonin 2.17 H (0.0-0.49) ng/ml Blood Type O Positive Antibody Screen POSITIVE Antibody Identification Anti-E Crossmatch See Detail Blood Bank Wristband ID Yes Discharge Plan Plan Patient Disposition: HOME (Self Care) Disposition Comment: Stable Problem List Clinical Impression: Anemia, ESRD on hemodialysis, Wound, open, lower limb with complication
[2024-12-30 16:37] LABS: Basophils % (Auto) 1 % (0-2.5); Eosinophils # (Auto) 0.1 Thou/mm3 (0.0-0.5); Eosinophils % (Auto) 1 % (0-10); Hematocrit 20.4 % (41.0-53.0); Immature Granulocytes % (Auto) 1 % (0-0); Immature Granulocytes Auto 0.04 Thou/mm3 (0.00-0.00); Lymphocytes # (Auto) 0.8 Thou/mm3 (1.0-4.8); Lymphocytes % (Auto) 13 % (10-50); Mean Corpuscular HGB Conc 33.8 g/dl (31.0-37.0); Mean Corpuscular Hemoglobin 32.2 pg (25.0-35.0); Mean Corpuscular Volume 95 fL (80-100); Monocytes # (Auto) 0.7 Thou/mm3 (0.0-0.8); Monocytes % (Auto) 11 % (0-12); Neutrophils # (Auto) 4.3 Thou/mm3 (1.8-7.7); Neutrophils % (Auto) 74 % (37-80); Nucleated Red Blood Cell % 0 /100 WBC (0); Platelet Count 85 Thou/mm3 (140-440); RDW Standard Deviation 57.6 fL (35.1-43.9); Red Blood Count 2.14 Miln/mm3 (4.50-5.90); White Blood Count 5.9 Thou/mm3 (3.8-10.6)
[2024-12-30 16:41] LABS: Hemoglobin 6.9 g/dL (13.5-16.0)
[2024-12-30 16:53] LABS: Alanine Aminotransferase 18 U/L (10-49); Albumin, Serum 3.3 gm/dL (3.5-5.0); Albumin/Globulin Ratio 0.9 (1.2-2.2); Alkaline Phosphatase 79 U/L (46-116); Anion Gap 10 (7-16); Aspartate Amino Transferase 33 U/L (0-34); BUN/Creatinine Ratio 5 Ratio (12-20); Bilirubin,Total 0.5 mg/dL (0.3-1.2); Blood Urea Nitrogen 38 mg/dL (9-23); Calcium 9.3 mg/dL (8.3-10.6); Calcium (Corrected) 9.9 mg/dL (8.5-10.1); Carbon Dioxide 28.7 mMol/L (20.0-31.0); Chloride 93 mMol/L (98-107); Creatinine (Component) 7.2 mg/dL (0.6-1.3); Estimated Creatinine Clearance 16.5 mL/min (>60); Globulin 3.7 gm/dL (2.3-3.5); Glucose 94 mg/dL (74-106); Osmolality,Calculated 273 (275-295); Sodium 132 mMol/L (136-145); eGFR 8 See Note
--- NOTE | 2024-12-30 17:44 | XR_ITS ---
Examination: Tibia-Fibula, left , 2 views Technique: Tibia-fibula AP lateral 2 views Date and time of exam: December 30, 2024 1822 hrs. Indications: Redness swelling and pain involving the lower leg today. Findings: Soft tissue venous calcification Prominent osteopenia Presumed orthopedic pins calcaneus No fracture. No leia cortical bone destruction soft tissue defects lateral lower leg Impression: No leia cortical bone destruction
--- NOTE | 2024-12-30 18:23 | PC.NURSE ---
Patient states pain 10/10. Informed ER provider and received verbal order for 1mg hydromorphone IV.
[2024-12-30 18:24] LABS: Lactate (Lactic Acid) 1.9 mMol/L (0.4-2.0)
--- NOTE | 2024-12-30 18:41 | ESHP_ITS ---
<Statement entered by Christopher Cooper MD - 12/31/24 09:38> Senior Resident Attestation: I supervised/discussed management plan with advisory internship physician Dr. Gallo, and was involved in the care of this patient. I personally saw and examined the patient and discussed the assessment and plan with the entire medicine team, including my attending. I agree with the assessment and plan as documented. Patient's care was discussed with attending physician, Dr. Aviles. Christopher Cooper MD PGY-2. Documentation for date of: 12/30/24 HPI History of Present Illness Chief complaint: ulcer on left leg History of present illness: A 59-year-old male with significant past medical history of hypothyroidism, chronic left lower extremity ulcer with dermatitis, ESRD on HD [M/W/F] since [address] Cotton, bilateral chronic venous stasis, chronic anemia since 2 years on PRBC transfusion once in every 2 weeks presented to the hospital with chief complaints of generalized weakness, worsening of chronic ulcer on left lower extremity since 3 days. Patient was apparently at his baseline 3 days ago, later noticed that he had generalized weakness without fever, nausea, vomitings and endorsed that he scratched the left lower extremity and later he noted ulcer at that site. Patient reported that he is following with wound care on and off since 2.5 years, Also endorsed that he is taking care of of wound by himself by applying antiseptic and cleaning it on regular basis. Patient reported that everything started 11 years ago and the chronic venous stasis is stable over 80 years and since last 2 years he noted worsening ulceration and increase in the size of lower extremity. Patient tried to get on the transplant list for ESRD but was declined due to his body weight Last dialysis session is on 12/28/2024, patient did not receive dialysis session on 12/30/2024 as he is having generalized weakness and came to the hospital ED course: -Initial vitals at the time of admission are blood pressure 104/52 mmHg, pulse rate 78 bpm, respiratory rate 20/min, temperature 98.2 ?F, SpO2 100% with room air -Labs showed WBC 5.9, Hb 6.9, platelets 85, sodium 132, chloride 93, BUN 38, creatinine 7.2 -Blood cultures are sent -Patient received 1 dose of Dilaudid and Zosyn in the ED Past medical history: Hypothyroidism, chronic left lower extremity ulcer, ESRD on HD, chronic anemia since 2 years on blood transfusion once in every 2 weeks Past surgical history: AV fistula surgery in left upper extremity Social history: Denies smoking, alcohol, other illicit drug abuse Allergies: Adhesive tapes Review of Systems Review of Systems Systems Reviewed: All systems reviewed, normal except as documented Exam Vital Signs Temp Pulse Resp BP Pulse Ox O2 Del Method 98.2 F 61 20 100/68 100 Room Air 12/30/24 18:23 12/30/24 18:23 12/30/24 18:23 12/30/24 18:23 12/30/24 18:23 12/30/24 18:23 Narrative Exam General: Awake. HEENT: Normocephalic, atraumatic, mucous membranes moist. Heart: Regular rate and rhythm, no murmurs. Lungs: Clear to auscultation with no wheezing or crackles. Abdomen: Soft, nondistended, nontender, positive bowel sounds. ?No guarding or rebound tenderness. Neurologic: Alert and oriented x3, no gross neurological deficit, and patient able to move all 4 extremities. Extremities: Bilateral chronic venous stasis. Chronic ulcer with necrotic patch of approximately 5 x 10 x 7 cm noted on the anterior expected of left lower leg, ulceration noted on the lateral side of the leg, induration noted in the entire left lower extremity. Skin: No rash or ecchymoses. Results: Labs 12/31/24 05:10 12/31/24 05:10 Labs: Short CBC 12/30/24 Range/Units 16:09 WBC 5.9 (3.8-10.6) Thou/mm3 Hgb 6.9 L* (13.5-16.0) g/dL Hct 20.4 L* (41.0-53.0) % Plt Count 85 L (140-440) Thou/mm3 BMP 12/30/24 16:09 Sodium 132 L Potassium 4.0 Chloride 93 L Carbon Dioxide 28.7 BUN 38 H Creatinine 7.2 H* Glucose 94 Calcium 9.3 Liver Function 12/30/24 Range/Units 16:09 Total Bilirubin 0.5 (0.3-1.2) mg/dL AST 33 (0-34) U/L ALT 18 (10-49) U/L Alkaline Phosphatase 79 (46-116) U/L Albumin 3.3 L (3.5-5.0) gm/dL Quality Measures Quality Measures none Medications Home Medications and Allergies Home Medications ?Medication ?Instructions ?Recorded ?Confirmed ?Type diphenhydramine HCl 25 mg capsule 25 mg PO TID PRN Itc adrian 08/20/22 03/31/24 History (Benadryl) vitamin B comp no.3-folic acid 1 1 tab PO QDAY 2 03/31/24 History mg-vit C 60 mg-biotin 300 mcg tablet ([facility]) sucroferric oxyhydroxide 500 mg 500 mg PO QID 10/03/22 03/31/24 History chewable tablet (Velphoro) carvedilol 12.5 mg tablet 12.5 mg PO BID 08/04/2303/21 History furosemide 40 mg tablet 40 mg PO QDAY 08/04/2303/31 History levothyroxine 100 mcg tablet 112 mcg PO DAILY 08/04/23 03/31/24 History Allergies Allergy/AdvReac Type Severity Reaction Status Date / Time adhesive tape Allergy Severe Rash Verified 12/08/24 17:07 Visit Medications Acetaminophen (Acetaminophen 325 Mg Tablet) 650 mg PO Q6H PRN PRN Reason: Fever >101.5 Stop: 01/29/25 18:29 Heparin Sodium (Porcine) (Heparin Sod Inj 5000 Unit/Ml Vial) 5,000 unit SC Q8HR [facility] Stop: 01/13/25 21:59 Hydromorphone HCl (Hydromorphone Inj 2 Mg/Ml Vial) 1 mg IVP Q4H PRN PRN Reason: Pain 7 - 10 Stop: 01/04/25 18:29 Vancomycin HCl 1,000 mg/ (Sodium Chloride) 250 mls @ 150 mls/hr IV X1 ONE Stop: 12/30/24 20:16 Ceftriaxone Sodium/Dextrose (Rocephin/D5w 1gm Iv Premix) 50 mls @ 100 mls/hr IV QDAY [facility] Stop: 01/06/25 18:37 Levothyroxine Sodium (Levothyroxine Sodium 112 Mcg Tablet) 112 mcg PO ACBR [facility] Stop: 01/30/25 05:59 Ondansetron HCl (Ondansetron Inj 2 Mg/Ml Inj 2 Ml) 4 mg IV Q6H PRN; Protocol PRN Reason: NAUSEA OR VOMITING Stop: 01/29/25 18:29 Pharmacy Consult (Vancomycin Pharmacy To Dose 1 Each Each) 1 each IV QDAY [facility] Stop: 01/30/25 08:59 Vitamin B Complex/Vit C/Folic Acid (Vit B12/Vit C/Fa (Nephrovite) Tablet) 1 tab PO QDAY [facility] Stop: 01/30/25 08:59 Discontinued Medications Hydromorphone HCl (Hydromorphone Inj 2 Mg/Ml Vial) 1 mg IVP X1 ONE Stop: 12/30/24 18:25 Piperacillin/Tazobactam/Dextrose (Zosyn) 3.375 gm in 50 mls @ 100 mls/hr IV X1 ONE Stop: 12/30/24 18:12 Assessment & Plan Plan A 59-year-old male with significant past medical history of hypothyroidism, chronic left lower extremity ulcer with dermatitis, ESRD on HD [M/W/F] since [address] Cotton, bilateral chronic venous stasis, chronic anemia since 2 years on PRBC transfusion once in every 2 weeks presented to the hospital with chief complaints of generalized weakness, worsening of chronic ulcer on left lower extremity since 3 days and admitted for left lower extremity cellulitis with chronic ulcer # Left lower extremity cellulitis superimposed on # chronic Left lower extremity ulcer # Bilateral chronic venous stasis -Patient had history of lower extremity infection 11 years ago following which patient ended up on dialysis due to severe cellulitis -Patient endorsed that later the infection resolved leaving chronic venous stasis -Reported that since 2 years, patient had chronic dermatitis with left lower extremity ulcer and is following wound care on and off. Today -Vitals are stable at the time of admission -Labs showed WBC 5.9, Hb 6.9, platelets 85, sodium 132, chloride 93, BUN 38, creatinine 7.2, lactate 1.9, procalcitonin 2.17 Plan -Started on ceftriaxone and vancomycin [12/30- -Consulted general surgery Dr Lozano, will appreciate his recommendations -Referral to wound care done -IV Dilaudid as needed for pain -CT of left lower extremity without contrast is ordered, to rule out osteomyelitis # ESRD on HD [M/W/F] -Patient is on hemodialysis since 11 years -Patient had AV fistula on left upper extremity -Patient is still able to make some amount of urine -Patient reported that he was trying to get onto transplant list, he was rejected once as he is having overweight -Patient missed dialysis on 12/30/2024 due to generalized weakness and got admitted into the hospital Plan -Dr. Cotton is consulted, will appreciate her recommendations -Patient will get HD tomorrow -Nephro-Martín -Avoid nephrotoxic and renally dose medications # Chronic anemia, likely secondary to ESRD, in setting of chronic leg ulcers # Chronic Thrombocytopenia, secondary to ESRD -Patient reported that he is having anemia since 2 years and receiving blood transfusions once in every 2 weeks in the ED -Bone marrow biopsy was done and it did not show any significant pathology due to inadequate sample plan -1 PRBC transfusion - Posttransfusion H&H - No evidence of bleeding # Hypothyroidism -Patient is using 112 mcg of levothyroxine -TSH and free T4 ordered -Resume his home levothyroxine Hospital Maintenance: Dispo: MedSurg DVT ppx: Held for now in view of anemia and thrombocytopenia GI ppx: Not needed as of now Diet: Renal IV lines: Peripheral Code status: Full code Patient plan of care was discussed with the attending physician, Dr. Aviles and senior resident Dr. Kenneth Gallo, PGY1 Attending Provider Attestation/Addendum I attest that I was physically present for the evaluation, physical examination, lab and imaging review of the patient with the residents. I discussed the case with the residents and agree with the findings and plans of care as documented above. Patient is a 59 years old male with past medical history of hypothyroidism, chronic lower extremity stasis ulcer with dermatitis, ESRD on hemodialysis, chronic anemia who presented to the ED with complaint of generalized weakness and worsening left leg ulcer. Patient has been having worsening ulcer of his lower left lower extremity, he tried to scrape it today and started having pain. He uses compression stockings usually. Due to his generalized weakness, he was not able to attend his hemodialysis session today. Denied any fever, chills. On exam, noted to have bilateral chronic venous stasis. Large chronic ulcer noted on left lower extremity with debris and discoloration. Fresh appearing ulcers on lateral side of the same leg. Tender to palpate. In the ED, his vitals were within normal limits. Lab results show hemoglobin of 6.9, sodium 132, chloride 93, BUN/creatinine 38/7.2. X-ray of the leg was done, did not show any leia cortical bone destruction. We will admit the patient for management of lower extremity cellulitis, likely infected left lower limb ulcer and generalized weakness. Started on IV Rocephin and doxycycline, cultures were obtained. We will also obtain wound care and general surgery consult. Consulted nephrology for continuation of hemodialysis. Patient was ordered 1 unit of PRBC in the ED, we will closely monitor his hemoglobin level. Farrah Aviles MD
[2024-12-30 18:56] LABS: Procalcitonin 2.17 ng/ml (0.0-0.49)
[2024-12-30] MEDS: PIPER/TAZO 3.375 GM PREMIX 3.375 GM/50 ML BAG IV (18:59)
[2024-12-30] MEDS: HYDROmorphone INJ 2 MG/ML VIAL 1 MG IVP (19:00)
[2024-12-30] MEDS: cefTRIAXone/D5w 1gm IV premix 1 GM/50 ML BAG IV (20:31)
[2024-12-30] MEDS: VANCOMYCIN/NS 1 GM IVPB 200 ML IV (21:30)
[2024-12-31] VITALS (32 sets, daily range): BP systolic 84–146; BP diastolic 36–97; PULSE 57–96; RESP 18–24; TEMP 36.1–38.8; O2SAT 92–100; BMI 38.6
[2024-12-31 00:46] LABS: Hemoglobin 7.1 g/dL (13.5-16.0)
[2024-12-31] MEDS: DiphenhydrAMINE 25 MG CAPSULE PO (03:09)
[2024-12-31] MEDS: DEXAMETHASONE SOD PHOS INJ 10 MG/ML VIAL 6 MG IV (03:09)
[2024-12-31 06:08] LABS: Basophils % (Auto) 0 % (0-2.5); Eosinophils % (Auto) 1 % (0-10); Hematocrit 21.4 % (41.0-53.0); Immature Granulocytes % (Auto) 1 % (0-0); Immature Granulocytes Auto 0.03 Thou/mm3 (0.00-0.00); Lymphocytes % (Auto) 1 % (10-50); Mean Corpuscular HGB Conc 32.7 g/dl (31.0-37.0); Mean Corpuscular Hemoglobin 31.5 pg (25.0-35.0); Mean Corpuscular Volume 96 fL (80-100); Monocytes # (Auto) 0.1 Thou/mm3 (0.0-0.8); Monocytes % (Auto) 2 % (0-12); Neutrophils # (Auto) 4.1 Thou/mm3 (1.8-7.7); Neutrophils % (Auto) 96 % (37-80); Nucleated Red Blood Cell % 0 /100 WBC (0); RDW Standard Deviation 58.2 fL (35.1-43.9); Red Blood Count 2.22 Miln/mm3 (4.50-5.90); White Blood Count 4.3 Thou/mm3 (3.8-10.6)
[2024-12-31] MEDS: LEVOTHYROXINE SODIUM 112 MCG TABLET PO (06:10)
[2024-12-31 06:40] LABS: Platelet Count 58 Thou/mm3 (140-440)
[2024-12-31 06:46] LABS: Alanine Aminotransferase 13 U/L (10-49); Albumin, Serum 2.9 gm/dL (3.5-5.0); Albumin/Globulin Ratio 0.9 (1.2-2.2); Alkaline Phosphatase 89 U/L (46-116); Anion Gap 10 (7-16); Aspartate Amino Transferase 23 U/L (0-34); Bilirubin,Total 0.4 mg/dL (0.3-1.2); Blood Urea Nitrogen 46 mg/dL (9-23); C-Reactive Protein 13.3 mg/dL (0.0-0.9); Calcium 8.9 mg/dL (8.3-10.6); Calcium (Corrected) 9.8 mg/dL (8.5-10.1); Carbon Dioxide 29.7 mMol/L (20.0-31.0); Chloride 94 mMol/L (98-107); Cholesterol 63 mg/dL (132-200); Globulin 3.2 gm/dL (2.3-3.5); Glucose 100 mg/dL (74-106); Osmolality,Calculated 280 (275-295); Potassium 4.4 mMol/L (3.4-5.1); Sodium 134 mMol/L (136-145); Thyroid Stimulating Hormone 3.82 uIU/mL (0.55-4.78); Total Protein 6.1 gm/dL (5.7-8.2); Triglycerides 63 mg/dL (30-150)
[2024-12-31 06:47] LABS: Sed Rate (ESR) 43 mm/hr (0-20)
[2024-12-31 06:48] LABS: BUN/Creatinine Ratio 6 Ratio (12-20); Cardiac Risk Estimate 4.2 RATIO (4.0-6.7); Creatinine (Component) 8.1 mg/dL (0.6-1.3); Estimated Creatinine Clearance 14.6 mL/min (>60); HDL Cholesterol 15 mg/dL (40-60); LDL Cholesterol,Calculated 35 mg/dL (0-130); eGFR 7 See Note
[2024-12-31 07:17] LABS: Vancomycin,Random 9.8 mcg/mL
[2024-12-31] MEDS: ACETAMINOPHEN 325 MG TABLET 650 MG PO (07:19)
--- NOTE | 2024-12-31 07:48 | PC.NURSE ---
0154 Second unit of PRBCs started. 0225 Patient started having chills with restlessness and mild anxiety that got worse minutes later. Dr. Gonzalez was made aware. MD to come in and check on patient. [address] Carranza in the room to see patient. Per Dr. Gonzalez, stop blood transfusion for possible blood transfusion reaction. Lab called to notify regarding discontinuation of blood transfusion. Spoke with ASHLEE Meeks and was told to return blood product to the lab together with the report (form) of suspected transfusion reaction. 0427 Dr. Gonzalez placed orders for Transfusion Reaction Routine (to be collected by lab). 0447 Blood product returned to the lab. ASHLEE Meeks received.
[2024-12-31 09:31] LABS: Slide Review Platelets confirmed
[2024-12-31] MEDS: ALBUMIN HUMAN 25% IVPB 25 GM/100 ML BTL IV (09:42)
--- NOTE | 2024-12-31 09:43 | PC.NURSE ---
BP low, albumin given 25%.
--- NOTE | 2024-12-31 09:49 | PC.NURSE ---
100 NS bolus given as BP still very low, UF off.
--- NOTE | 2024-12-31 10:02 | PC.NURSE ---
UF back on, Goal decreased to 2L.
--- NOTE | 2024-12-31 11:31 | PC.NURSE ---
1 unit of PRBC infused with out incident.
--- NOTE | 2024-12-31 12:32 | PD.SURCONS ---
HPI Consult details Consult date: 12/31/24 Reason for consultation narrative: Open wound left lower extremity History of present illness: 59-year-old obese male with history of end-stage renal disease on hemodialysis, hypothyroidism, thrombocytopenia, bilateral lower extremity venous hypertension with stasis ulceration has had left lower extremity wound for many years that he has been managing by himself. He was admitted with worsening pain and swelling, anemia and generalized weakness. X-ray did not show evidence of osteomyelitis Review of Systems Constitutional Constitutional: Denies chills and Denies fever(s) Cardiovascular Cardiovascular: Denies chest pain Respiratory Respiratory: Denies cough Gastrointestinal Gastrointestinal: Denies abdominal pain, Denies nausea and Denies vomiting Past Medical History Surgical History OTHER SURGICAL HX: Tonsillectomy, left upper extremity arteriovenous fistula Social History SMOKING STATUS: Never smoker SUBSTANCE USE: does not use ALCOHOL: Former Meds Home Medications and Allergies Home Medications ?Medication ?Instructions ?Recorded ?Confirmed ?Type diphenhydramine HCl 25 mg capsule 25 mg PO TID PRN Itching 08/20/22 03/31/24 History (Benadryl) vitamin B comp no.3-folic acid 1 1 tab PO QDAY 08/20/22 03/31/24 History mg-vit C 60 mg-biotin 300 mcg tablet ([facility] Rx) sucroferric oxyhydroxide 500 mg 500 mg PO QID 10/03/22 03/31/24 History chewable tablet (Velphoro) carvedilol 12.5 mg tablet 12.5 mg PO BID 08/04/23 03/31/24 History furosemide 40 mg tablet 40 mg PO QDAY 08/04/23 03/31/24 History levothyroxine 100 mcg tablet 112 mcg PO DAILY 08/04/23 03/31/24 History Allergies Allergy/AdvReac Type Severity Reaction Status Date / Time adhesive tape Allergy Severe Rash Verified 12/08/24 17:07 Exam Vital Signs Temp Pulse Resp BP Pulse Ox O2 Del Method O2 Flow Rate 97.8 F 66 18 117/47 L 92 L Room Air 2 12/31/24 12:19 12/31/24 12:19 12/31/24 12:19 12/31/24 12:23 12/31/24 12:19 12/31/24 08:00 12/31/24 12:19 Constitutional Constitutional: no acute distress Routine Extremities Exam Comments: Bilateral lower extremity evidence of venous hypertension, worse on the left side with open wound and stasis ulceration Assessment & Plan Problem List (1) Stasis dermatitis of left lower extremity with venous ulcer due to chronic peripheral venous hypertension: Status: Acute Plan There are no indications for surgical intervention at this time. Patient will require local wound care and he will need to follow-up with wound clinic upon discharge.
[2024-12-31 13:10] LABS: Iron 71 mcg/dL (65-175); Percent Iron Saturation 71 % (20-55); Total Iron Binding Capacity 99 mcg/dL (250-425); Unsaturated Iron Binding 28 (225-295)
--- NOTE | 2024-12-31 13:48 | PD.RESPRO ---
Documentation for date of: 12/31/24 Subjective Subjective Interval history: Patient was seen and examined at bedside. Overnight patient developed shivering right after starting second unit of PRBC transfusion, transfusion was immediately stopped and he was given Benadryl. He was also found to have glucose 50 and was given juice and his condition has improved. Today pathology called reporting they cleared him for second unit transfusion which is ordered. Patient was evaluated by general surgery and no surgery is indicated at this time, recommended continues wound care after discharge. He is on hemodialysis now. Exam Vital Signs Temp Pulse Resp BP Pulse Ox O2 Del Method O2 Flow Rate 97.8 F 66 18 117/47 L 92 L Nasal Cannula 2 12/31/24 12:19 12/31/24 12:19 12/31/24 12:19 12/31/24 12:23 12/31/24 12:19 12/31/24 12:00 12/31/24 12:19 Narrative Exam Gen: Well-developed and well-nourished obese male. HEENT: NCAT, PERRLA, EOMI, MMM, anicteric conjunctivae. CVS: normal S1 and S2. RRR. No M/R/G. Resp: CTA B/L. No rhonchi, rales, crackles or wheezing. Abd: soft, non-tender, non-distended. BS+ in all 4 quadrants. MSK: Good ROM in BUE & BLE. Non-pitting edema BLE. Bilateral chronic venous stasis dermatitis. Chronic ulcer with necrotic patch of approximately 5 x 10 x 7 cm noted on the anterior expected of left lower leg, ulceration noted on the lateral side of the leg, induration noted in the entire left lower extremity. Neuro: CN II-XII grossly intact. Strength 5/5 in BUE & BLE. Alert and oriented x3. Psych: appropriate mood and affect. Objective Labs 12/31/24 05:10 12/31/24 05:10 Labs: Laboratory Results - last 24 hr 12/30/24 12/30/24 12/31/24 16:09 18:13 00:28 WBC 5.9 RBC 2.14 L Hgb 6.9 L* 7.1 L Hct 20.4 L* 21.0 L* MCV 95 MCH 32.2 MCHC 33.8 RDW Std Deviation 57.6 H Plt Count 85 L Neut % (Auto) 74 Lymph % (Auto) 13 Gilchrist % (Auto) 11 Eos % (Auto) 1 Baso % (Auto) 1 Neut # (Auto) 4.3 Lymph # (Auto) 0.8 L Gilchrist # (Auto) 0.7 Eos # (Auto) 0.1 Baso # (Auto) 0.0 Immature Gran # (Auto) 0.04 H Absolute Nucleated RBC 0.00 Immature Gran % 1 H Nucleated RBC % 0 ESR Sodium 132 L Potassium 4.0 Chloride 93 L Carbon Dioxide 28.7 Anion Gap 10 BUN 38 H Creatinine 7.2 H* Estim Creat Clear Calc 16.5 L eGFR 8 L* BUN/Creatinine Ratio 5 L Glucose 94 Calculated Osmolality 273 L Lactic Acid 1.9 Calcium 9.3 Corrected Calcium 9.9 Iron TIBC Iron Saturation Unsat Iron Binding Total Bilirubin 0.5 AST 33 ALT 18 Alkaline Phosphatase 79 C-Reactive Prot, Quant Total Protein 7.0 Albumin 3.3 L Globulin 3.7 H Albumin/Globulin Ratio 0.9 L Triglycerides Cholesterol LDL Cholesterol, Calc HDL Cholesterol Cholesterol/HDL Ratio Procalcitonin 2.17 H TSH Random Vancomycin Misc Test Result Blood Type O Positive Antibody Screen POSITIVE Antibody Identification Anti-E Direct Antiglob Test Crossmatch See Detail Blood Bank Wristband ID Yes Post-Trans Blood Type Post-Tx Visible Hemolys Post-Trans Icterus Post-Trans Ur Hemoglobin Reaction Pathol Consult 12/31/24 12/31/24 12/31/24 05:10 06:10 06:30 WBC 4.3 RBC 2.22 L Hgb 7.0 L Hct 21.4 L* MCV 96 MCH 31.5 MCHC 32.7 RDW Std Deviation 58.2 H Plt Count 58 L D Neut % (Auto) 96 H Lymph % (Auto) 1 L Gilchrist % (Auto) 2 Eos % (Auto) 1 Baso % (Auto) 0 Neut # (Auto) 4.1 Lymph # (Auto) 0.0 L Gilchrist # (Auto) 0.1 Eos # (Auto) 0.0 Baso # (Auto) 0.0 Immature Gran # (Auto) 0.03 H Absolute Nucleated RBC 0.00 Immature Gran % 1 H Nucleated RBC % 0 ESR 43 H Sodium 134 L Potassium 4.4 Chloride 94 L Carbon Dioxide 29.7 Anion Gap 10 BUN 46 H Creatinine 8.1 H* D Estim Creat Clear Calc 14.6 L eGFR 7 L* BUN/Creatinine Ratio 6 L Glucose 100 Calculated Osmolality 280 Lactic Acid Calcium 8.9 Corrected Calcium 9.8 Iron 71 TIBC 99 L Iron Saturation 71 H Unsat Iron Binding 28 L Total Bilirubin 0.4 AST 23 ALT 13 Alkaline Phosphatase 89 C-Reactive Prot, Quant 13.3 H Total Protein 6.1 Albumin 2.9 L Globulin 3.2 Albumin/Globulin Ratio 0.9 L Triglycerides 63 Cholesterol 63 L LDL Cholesterol, Calc 35 HDL Cholesterol 15 L Cholesterol/HDL Ratio 4.2 Procalcitonin TSH 3.82 Random Vancomycin 9.8 Misc Test Result Platelets confirmed Blood Type Antibody Screen Antibody Identification Direct Antiglob Test 2+ A Crossmatch Blood Bank Wristband ID Post-Trans Blood Type O POSITIVE Post-Tx Visible Hemolys Negative Post-Trans Icterus Negative Post-Trans Ur Hemoglobin Not Performed. Reaction Pathol Consult Sent to Pathologist Quality Measures Quality Measures VTE prophylaxis Assessment & Plan Assessment Current Active Medications: Generic Name Dose Route Start Last Admin Trade Name Freq PRN Reason Stop Dose Admin Acetaminophen 650 mg 12/31/24 09:07 Acetaminophen 325 Mg Tablet PO 01/29/25 18:29 Q6H PRN Fever >100.3 Dextrose 25 ml 12/31/24 02:53 Dextrose 50%-Water Inj 50 Ml Syringe IV 01/30/25 02:52 Q15MIN PRN BG 50-70 responsive npo pt Dextrose 50 ml 12/31/24 02:53 Dextrose 50%-Water Inj 50 Ml Syringe IV 01/30/25 02:52 Q15MIN PRN BG <50 OR BG <70 & pt unresponsive Glucagon 1 mg 12/31/24 02:53 Glucagon Inj 1 Mg Vial IM Q15MIN PRN BG <70, and no IV access Hydromorphone HCl 1 mg 12/30/24 18:30 Hydromorphone Inj 2 Mg/Ml Vial IVP 01/04/25 18:29 Q4H PRN Pain 7 - 10 Ceftriaxone Sodium/Dextrose 1 gm in 50 mls @ 100 mls/hr 12/30/24 18:38 12/30/24 21:01 Rocephin/D5w 1gm Iv Premix IV 01/06/25 18:37 Infused QDAY@1400 MARIANO Infusion Vancomycin HCl 250 mls @ 120 mls/hr 12/31/24 16:00 Vancomycin/Water 1250 Mg Ivpb IV 12/31/24 18:04 X1 ONE Albumin Human 25 gm in 100 mls @ 100 mls/hr 12/31/24 09:36 12/31/24 09:42 Albuminar-25 Ivpb IV 01/03/25 09:35 100 mls/hr PRN PRN Administration DIALYSIS Levothyroxine Sodium 112 mcg 12/31/24 06:00 12/31/24 06:10 Levothyroxine Sodium 112 Mcg Tablet PO 01/30/25 05:59 112 mcg ACBR MARIANO Administration Ondansetron HCl 4 mg 12/30/24 18:30 Ondansetron Inj 2 Mg/Ml Inj 2 Ml IV 01/29/25 18:29 Q6H PRN NAUSEA OR VOMITING Protocol Pharmacy Consult 1 each 12/31/24 09:00 Vancomycin Pharmacy To Dose 1 Each Each IV 01/30/25 08:59 QDAY PRN PROTOCOL Vitamin B Complex/Vit C/Folic Acid 1 tab 12/31/24 09:00 12/31/24 09:56 Vit B12/Vit C/Fa (Nephrovite) Tablet PO 01/30/25 08:59 Not Given QDAY MARIANO Plan A 59-year-old male with significant past medical history of hypothyroidism, chronic left lower extremity ulcer with dermatitis, ESRD on HD [M/W/F] since [address] Cotton, bilateral chronic venous stasis, chronic anemia since 2 years on PRBC transfusion once in every 2 weeks presented to the hospital with chief complaints of generalized weakness, worsening of chronic ulcer on left lower extremity since 3 days and admitted for left lower extremity cellulitis with chronic ulcer # Left lower extremity cellulitis superimposed on # chronic Left lower extremity ulcer. # Bilateral chronic venous stasis. -Patient had history of lower extremity infection 11 years ago following which patient ended up on dialysis due to severe cellulitis. -Patient endorsed that later the infection resolved leaving chronic venous stasis. -Reported that since 2 years, patient had chronic dermatitis with left lower extremity ulcer and is following wound care on and off. -Vitals are stable at the time of admission. -Labs showed WBC 5.9, Hb 6.9, platelets 85, sodium 132, chloride 93, BUN 38, creatinine 7.2, lactate 1.9, procalcitonin 2.17. -Consulted general surgery Dr Lozano, appreciate recommendations. Plan: -Started on ceftriaxone and vancomycin [12/30- -Referral to wound care done. -IV Dilaudid as needed for pain. -CT of left lower extremity without contrast is ordered, to rule out osteomyelitis. # ESRD on HD [M/W/F]. -Patient is on hemodialysis since 11 years. -Patient had AV fistula on left upper extremity. -Patient is still able to make some amount of urine. -Patient reported that he was trying to get onto transplant list, he was rejected once as he is having overweight. -Patient missed dialysis on 12/30/2024 due to generalized weakness and got admitted into the hospital. Plan: -Dr. Cotton is consulted, will appreciate her recommendations. -Patient on HD now. -Nephro-Martín. -Avoid nephrotoxic and renally dose medications. # Chronic anemia, likely secondary to ESRD, in setting of chronic leg ulcers. # Chronic Thrombocytopenia, secondary to ESRD. -Patient reported that he is having anemia since 2 years and receiving blood transfusions once in every 2 weeks in the ED. -Bone marrow biopsy was done and it did not show any significant pathology due to inadequate sample. Plan: -1 PRBC transfusion today (2 total since admission). - Posttransfusion H&H. - No evidence of bleeding. # Hypothyroidism. -Patient is using 112 mcg of levothyroxine. Plan: -Resume his home levothyroxine. Hospital Maintenance: Dispo: MedSurg. DVT ppx: Held for now in view of anemia and thrombocytopenia. GI ppx: Not needed as of now. Diet: Renal. IV lines: Peripheral. Code status: Full code. Patient plan of care was discussed with the attending physician, Dr. Aviles. Christopher Cooper MD, PGY 2. Disclaimer: This note was dictated by speech recognition. Minor errors in marketing sales consultant may be present due to voice recognition software. Attending Provider Attestation/Addendum I attest that I was physically present for the evaluation, physical examination, lab and imaging review of the patient with the residents. I discussed the case with the residents and agree with the findings and plans of care as documented above. This morning, patient had elevated temperature at 101.8 ?F. He was also tachycardic at that time. Underwent hemodialysis today with nephrology. Hemoglobin improved to 7.1, slightly dropped to 7.0 this morning. We will transfuse 1 more unit, obtain iron, B12 and folate panel. General surgery following, recommended medical management, stated no indication for surgery at this time, appreciate recommendations. We will continue with wound care, IV antibiotics with Rocephin and vancomycin. Pending culture results. Farrah Aviles MD
--- NOTE | 2024-12-31 14:22 | PD.RESCONSUL ---
HPI Data of Consult Consult date: 12/31/24 Requesting Physician: Farrah Aviles MD Admitting Provider: Farrah Aviles MD Attending Provider: Farrah Aviles MD Primary Care Provider: Shad Cotton MD Consult Narrative Reason for consult: ESRD History of present illness: Mr. Weaver is a 59-year-old male with a known history of ESRD on hemodialysis (HD) thrice weekly (Thursday/Thursday/Thursday), under the care of Dr. Cotton for the past 11 years. He presented to the ED with generalized weakness and worsening of a chronic left lower extremity ulcer, which has been present for approximately 2.5 years. He reports being at baseline until 3 days ago, when he began experiencing generalized weakness without associated fever, nausea, or vomiting. He endorses that he scratched his left leg, which led to an ulcerative lesion at the site. The patient states he has been intermittently seen by wound care and has been managing the wound at home with antiseptics. He also reports chronic venous stasis for over 8 years with progressive worsening of the ulcer over the past 2 years. He previously attempted evaluation for renal transplantation but was not listed due to elevated body weight. The patient missed his most recent dialysis session scheduled for 12/30/2024 due to worsening weakness. His last dialysis session was on 12/28/2024. Initial vitals: BP 104/52 mmHg, HR 78 bpm, RR 20/min, Temp 98.2?F, SpO? 100% on room air Laboratory results: Sodium 134, potassium 4.4, chloride 94, BUN 46, creatinine 8.1, EGFR 7, TIBC 99, iron saturation 71, CRP 13.3, Pro-Calc 2.17, WBC 4.3, Hgb 7.0, PLT 58. Cultures are pending, currently on DILAUDID and ZOSYN. PMHx: ESRD on HD, hypothyroidism, chronic venous stasis, chronic anemia PSHx: Left upper extremity AV fistula placement MEDS: Pending med rec ALLERGIES: Adhesive tape FHx: Not significant SH: Denies tobacco, alcohol or drug use Nephrology was consulted for inpatient hemodialysis. cc:: cc: Farrah Aviles MD Exam Vital Signs Temp Pulse Resp BP Pulse Ox O2 Del Method O2 Flow Rate 97.8 F 66 18 117/47 L 92 L Nasal Cannula 2 12/31/24 12:19 12/31/24 12:19 12/31/24 12:19 12/31/24 12:23 12/31/24 12:19 12/31/24 12:00 12/31/24 12:19 Narrative Exam GENERAL Normal appearing adult male, in mild distress secondary to pain. HEENT NCAT.?LORENE. Oral mucosa is moist. Patent Nares NECK Supple, nontender, no thyromegaly, no meningismus, no JVD, no step offs CHEST RRR, no m/g/r CTAB, no w/r/r. Symmetrical chest rise. No intercostal subcostal retraction Atraumatic, nontender, no crepitus, symmetrical expansion. ABDOMEN Soft, flat, nontender. No guarding/rebound tenderness/masses. Bowel sounds presents EXTREMITIES Bilateral chronic venous stasis dermatitis. Nonpitting edema, significantly worse on the left, extending above the knee. Left LE with large, necrotic ulcer of cheerier aspect of lui, with significant surrounding erythema, warmth and tenderness, extending up to the thigh. SKIN As described above. NEUROMUSCULAR No lumbar or midline, no CVA, no paraspinal muscle spasm or tenderness. Moves all 4 extremities well, with full ROM and good CSM. MOROCHO x4, CN II-XII grossly intact. No focal neurologic deficits. PSYCHIATRY Normal mood and affect, cooperative, no SI or HI or hallucinations. Results Labs 01/01/25 04:40 01/01/25 04:40 Labs: Short CBC 12/30/24 12/31/24 12/31/24 Range/Units 16:09 00:28 05:10 WBC 5.9 4.3 (3.8-10.6) Thou/mm3 Hgb 6.9 L* 7.1 L 7.0 L (13.5-16.0) g/dL Hct 20.4 L* 21.0 L* 21.4 L* (41.0-53.0) % Plt Count 85 L 58 L D (140-440) Thou/mm3 BMP 12/30/24 12/31/24 16:09 05:10 Sodium 132 L 134 L Potassium 4.0 4.4 Chloride 93 L 94 L Carbon Dioxide 28.7 29.7 BUN 38 H 46 H Creatinine 7.2 H* 8.1 H* D Glucose 94 100 Calcium 9.3 8.9 Liver Function 12/30/24 12/31/24 Range/Units 16:09 05:10 Total Bilirubin 0.5 0.4 (0.3-1.2) mg/dL AST 33 23 (0-34) U/L ALT 18 13 (10-49) U/L Alkaline Phosphatase 79 89 (46-116) U/L Albumin 3.3 L 2.9 L (3.5-5.0) gm/dL Quality Measures Quality Measures VTE prophylaxis Medications Home Medications and Allergies Home Medications ?Medication ?Instructions ?Recorded ?Confirmed ?Type diphenhydramine HCl 25 mg capsule 25 mg PO TID PRN Itching 08/20/22 03/31/24 History (Benadryl) vitamin B comp no.3-folic acid 1 1 tab PO QDAY 08/20/22 03/31/24 History mg-vit C 60 mg-biotin 300 mcg tablet ([facility] Rx) sucroferric oxyhydroxide 500 mg 500 mg PO QID 10/03/22 03/31/24 History chewable tablet (Velphoro) carvedilol 12.5 mg tablet 12.5 mg PO BID 08/04/23 03/31/24 History furosemide 40 mg tablet 40 mg PO QDAY 08/04/23 03/31/24 History levothyroxine 100 mcg tablet 112 mcg PO DAILY 08/04/23 03/31/24 History Allergies Allergy/AdvReac Type Severity Reaction Status Date / Time adhesive tape Allergy Severe Rash Verified 12/08/24 17:07 Visit Medications Acetaminophen (Acetaminophen 325 Mg Tablet) 650 mg PO Q6H PRN PRN Reason: Fever >100.3 Stop: 01/29/25 18:29 Dextrose (Dextrose 50%-Water Inj 50 Ml Syringe) 25 ml IV Q15MIN PRN PRN Reason: BG 50-70 responsive npo pt Stop: 01/30/25 02:52 Dextrose (Dextrose 50%-Water Inj 50 Ml Syringe) 50 ml IV Q15MIN PRN PRN Reason: BG <50 OR BG <70 & pt unresponsive Stop: 01/30/25 02:52 Glucagon (Glucagon Inj 1 Mg Vial) 1 mg IM Q15MIN PRN PRN Reason: BG <70, and no IV access Hydromorphone HCl (Hydromorphone Inj 2 Mg/Ml Vial) 1 mg IVP Q4H PRN PRN Reason: Pain 7 - 10 Stop: 01/04/25 18:29 Ceftriaxone Sodium/Dextrose (Rocephin/D5w 1gm Iv Premix) 1 gm in 50 mls @ 100 mls/hr IV QDAY@1400 MARIANO Stop: 01/06/25 18:37 Last Infusion: 12/30/24 21:01 Dose: Infused Vancomycin HCl (Vancomycin/Water 1250 Mg Ivpb) 250 mls @ 120 mls/hr IV X1 ONE Stop: 12/31/24 18:04 Albumin Human (Albuminar-25 Ivpb) 25 gm in 100 mls @ 100 mls/hr IV PRN PRN PRN Reason: DIALYSIS Stop: 01/03/25 09:35 Last Admin: 12/31/24 09:42 Dose: 100 mls/hr Levothyroxine Sodium (Levothyroxine Sodium 112 Mcg Tablet) 112 mcg PO ACBR [facility] Stop: 01/30/25 05:59 Last Admin: 12/31/24 06:10 Dose: 112 mcg Ondansetron HCl (Ondansetron Inj 2 Mg/Ml Inj 2 Ml) 4 mg IV Q6H PRN; Protocol PRN Reason: NAUSEA OR VOMITING Stop: 01/29/25 18:29 Pharmacy Consult (Vancomycin Pharmacy To Dose 1 Each Each) 1 each IV QDAY PRN PRN Reason: PROTOCOL Stop: 01/30/25 08:59 Vitamin B Complex/Vit C/Folic Acid (Vit B12/Vit C/Fa (Nephrovite) Tablet) 1 tab PO QDAY [facility] Stop: 01/30/25 08:59 Last Admin: 12/31/24 09:56 Dose: Not Given Discontinued Medications Acetaminophen (Acetaminophen 325 Mg Tablet) 650 mg PO Q6H PRN PRN Reason: Fever >101.5 Stop: 01/29/25 18:29 Last Admin: 12/31/24 07:19 Dose: 650 mg Dexamethasone Sodium Phosphate (Dexamethasone Sod Phos Inj 10 Mg/Ml Vial) 6 mg IV X1 ONE Stop: 12/31/24 02:49 Last Admin: 12/31/24 03:09 Dose: 6 mg Diphenhydramine HCl (Diphenhydramine 25 Mg Capsule) 25 mg PO X1 ONE Stop: 12/31/24 02:48 Last Admin: 12/31/24 03:09 Dose: 25 mg Epoetin Leonard (Epoetin Leonard-Epbx Inj 10,000 Unit/Ml Vial (Esrd)) 10,000 unit SC X1 ONE Stop: 12/31/24 10:31 Heparin Sodium (Porcine) (Heparin Sod Inj 5000 Unit/Ml Vial) 5,000 unit SC Q12HR MARIANO Stop: 01/13/25 21:59 Hydromorphone HCl (Hydromorphone Inj 2 Mg/Ml Vial) 1 mg IVP X1 ONE Stop: 12/30/24 18:25 Last Admin: 12/30/24 19:00 Dose: 1 mg Piperacillin/Tazobactam/Dextrose (Zosyn) 3.375 gm in 50 mls @ 100 mls/hr IV X1 ONE Stop: 12/30/24 18:12 Last Infusion: 12/30/24 19:29 Dose: Infused Vancomycin HCl (Vancomycin/Water 1gm Ivpb) 200 mls @ 120 mls/hr IV X1 ONE Stop: 12/30/24 20:16 Last Admin: 12/30/24 19:02 Dose: Not Given Vancomycin/Sodium Chloride (Vancomycin/Ns 1 Gm Ivpb) 200 mls @ 120 mls/hr IV X1 ONE Stop: 12/30/24 20:24 Last Admin: 12/30/24 21:30 Dose: 120 mls/hr Assessment & Plan Plan 59-year-old male with PMHx of ESRD HD MWF, hypothyroidism, chronic left lower extremity ulcer, chronic anemia, recurrent GI bleed and biweekly transfusions, presenting with worsening left extremity pain. Admitted for cellulitis of left lower extremity with laceration. Will plan for hemodialysis inpatient MWF. For session today. ESRD HD MWF Anemia of chronic disease Recurrent blood transfusions History of ESRD. Has recurrent GI bleed with biweekly blood transfusions. BUN 46, creatinine 8.1, EGFR 7, no significant electrolyte abnormalities. Hgb 7.0, WBC 43, PLT 58. No coag studies. ? Ordered 2 units PRBC, EPOGEN with HD ? Continue inpatient HD ? Daily labs Left lower extremity cellulitis superimposed on Chronic Left lower extremity ulcer. Bilateral chronic venous stasis. Chronic anemia, likely secondary to ESRD, in setting of chronic leg ulcers. Chronic Thrombocytopenia, secondary to ESRD. Hypothyroidism. ? Managed by primary team Thank you for the opportunity to participate in the patient's care. Case was discussed with attending, Dr. Cotton. Sherine Hinds DO PGYI Attending Provider Attestation/Addendum Patient seen and examined with resident physician Dr. Basurto. Note reviewed, agree with findings and recommendations. Admitted with weakness, significant in left leg ulcers with oozing Patient currently seen on dialysis. Tolerating dialysis without any problems. Hemodialysis for 3.5 hours, 2K, ultrafiltration 2-3 L, Epogen 6000, no heparin ordered. Plan of care discussed with the dialysis nurse. Please see dialysis flowsheet for further details. Thank you Farrah for allowing me to participate in the care of Mr. Weaver
[2024-12-31] MEDS: cefTRIAXone/D5w 1gm IV premix 1 GM/50 ML BAG IV (14:55)
[2024-12-31] MEDS: VANCOMYCIN/WATER 1250 MG IVPB 250 ML 120 MG IV (16:52)
[2024-12-31] MEDS: EPOETIN ALFA-EPBX INJ 10,000 UNIT/ML VIAL (ESRD) 10000 UNIT SC (18:55)
[2024-12-31] MEDS: EPOETIN ALFA INJ 1,000 UNIT/0.05 ML UNIT 10000 UNIT SC (19:00)
[2025-01-01] VITALS: BP 102/61; PULSE 63; RESP 18; TEMP 36.1; O2SAT 97
[2025-01-01 04:00] VITALS: BP 109/64; PULSE 62; RESP 18; TEMP 36.1; O2SAT 100
[2025-01-01] MEDS: LEVOTHYROXINE SODIUM 112 MCG TABLET PO (05:13)
[2025-01-01 05:49] LABS: Basophils % (Auto) 0 % (0-2.5); Eosinophils # (Auto) 0.1 Thou/mm3 (0.0-0.5); Eosinophils % (Auto) 3 % (0-10); Hematocrit 23.2 % (41.0-53.0); Immature Granulocytes % (Auto) 1 % (0-0); Immature Granulocytes Auto 0.03 Thou/mm3 (0.00-0.00); Lymphocytes # (Auto) 0.2 Thou/mm3 (1.0-4.8); Lymphocytes % (Auto) 4 % (10-50); Mean Corpuscular HGB Conc 32.8 g/dl (31.0-37.0); Mean Corpuscular Hemoglobin 30.9 pg (25.0-35.0); Mean Corpuscular Volume 94 fL (80-100); Monocytes # (Auto) 0.2 Thou/mm3 (0.0-0.8); Monocytes % (Auto) 5 % (0-12); Neutrophils # (Auto) 4.5 Thou/mm3 (1.8-7.7); Neutrophils % (Auto) 88 % (37-80); Nucleated Red Blood Cell % 0 /100 WBC (0); RDW Standard Deviation 57.8 fL (35.1-43.9); Red Blood Count 2.46 Miln/mm3 (4.50-5.90); White Blood Count 5.2 Thou/mm3 (3.8-10.6)
[2025-01-01 06:11] LABS: Alanine Aminotransferase 16 U/L (10-49); Albumin, Serum 2.9 gm/dL (3.5-5.0); Albumin/Globulin Ratio 0.9 (1.2-2.2); Alkaline Phosphatase 92 U/L (46-116); Anion Gap 8 (7-16); Aspartate Amino Transferase 26 U/L (0-34); BUN/Creatinine Ratio 6 Ratio (12-20); Bilirubin,Total 0.6 mg/dL (0.3-1.2); Blood Urea Nitrogen 35 mg/dL (9-23); Calcium 9.4 mg/dL (8.3-10.6); Calcium (Corrected) 10.3 mg/dL (8.5-10.1); Carbon Dioxide 31.6 mMol/L (20.0-31.0); Chloride 95 mMol/L (98-107); Creatinine (Component) 5.6 mg/dL (0.6-1.3); Estimated Creatinine Clearance 21.1 mL/min (>60); Globulin 3.1 gm/dL (2.3-3.5); Glucose 123 mg/dL (74-106); Osmolality,Calculated 279 (275-295); Potassium 4.1 mMol/L (3.4-5.1); Sodium 135 mMol/L (136-145); eGFR 11 See Note
[2025-01-01 07:18] LABS: Slide Review Platelets confirmed
[2025-01-01 07:20] LABS: Hemoglobin 7.6 g/dL (13.5-16.0); Platelet Count 49 Thou/mm3 (140-440)
[2025-01-01 07:45] VITALS: BP 111/48; PULSE 61; RESP 16; TEMP 36.8; O2SAT 94
[2025-01-01] MEDS: VIT B12/Vit C/FA (Nephrovite) TABLET 1 TAB PO (08:46)
--- NOTE | 2025-01-01 10:00 | ESPR_ITS ---
Documentation for date of: 01/01/25 Subjective Subjective Interval history: Mr. Weaver is a 59-year-old male with a known history of ESRD on hemodialysis (HD) thrice weekly (Thursday/Thursday/Thursday), under the care of Dr. Cotton for the past 11 years. He presented to the ED with generalized weakness and worsening of a chronic left lower extremity ulcer, which has been present for approximately 2.5 years. He reports being at baseline until 3 days ago, when he began experiencing generalized weakness without associated fever, nausea, or vomiting. He endorses that he scratched his left leg, which led to an ulcerative lesion at the site. The patient states he has been intermittently seen by wound care and has been managing the wound at home with antiseptics. He also reports chronic venous stasis for over 8 years with progressive worsening of the ulcer over the past 2 years. He previously attempted evaluation for renal transplantation but was not listed due to elevated body weight. The patient missed his most recent dialysis session scheduled for 12/30/2024 due to worsening weakness. His last dialysis session was on 12/28/2024. Initial vitals: BP 104/52 mmHg, HR 78 bpm, RR 20/min, Temp 98.2?F, SpO? 100% on room air Laboratory results: Sodium 134, potassium 4.4, chloride 94, BUN 46, creatinine 8.1, EGFR 7, TIBC 99, iron saturation 71, CRP 13.3, Pro-Calc 2.17, WBC 4.3, Hgb 7.0, PLT 58. Cultures are pending, currently on DILAUDID and ZOSYN. PMHx: ESRD on HD, hypothyroidism, chronic venous stasis, chronic anemia PSHx: Left upper extremity AV fistula placement MEDS: Pending med rec no need for any surgical intervention. Patient wants to follow-up with wound care center. ALLERGIES: Adhesive tape FHx: Not significant SH: Denies tobacco, alcohol or drug use Nephrology was consulted for inpatient hemodialysis. 01/01/2025 patient currently seen in medical floor. Resting comfortably. Still having significant discomfort in the lower extremities. He has a huge ulcers on the left leg. Seen by surgeon-if he is not discharged-he will need dialysis tomorrow. Review of Systems Review of Systems Narrative Review of Systems: CONSTITUTIONAL: Patient denies any fever, chills. HEENT: Denies any visual disturbances or hearing problems. CARDIOVASCULAR: Patient denies any chest pain, shortness of breath. ++ swelling in the lower extremities. PULMONARY: Patient denies any shortness of breath, cough. GASTROINTESTINAL: Patient denies any abdominal pain, constipation, nausea, vomiting, diarrhea. GENITOURINARY: Patient denies any urinary symptoms of burning or frequency or hematuria, denies any form in the urine. SKIN: Significant wounds on the left leg MUSCULOSKELETAL: Complaining of gait imbalance NEUROLOGICAL: Denies any neurological problems of strokes, seizures or confusion. Denies any memory problems. PSYCHIATRIC: Denies any depression or anxiety. LYMPHATICS : No lymphadenopathy Exam Vital Signs Temp Pulse Resp BP Pulse Ox O2 Del Method O2 Flow Rate 36.8 C 61 16 111/48 L 94 L Room Air 2 01/01/25 07:45 01/01/25 07:45 01/01/25 07:45 01/01/25 07:45 01/01/25 07:45 01/01/25 07:45 12/31/24 16:00 Narrative Exam GENERAL APPEARANCE: Patient seems to be comfortable, adequately hydrated and nourished. HEENT: EOMI, PERRLA NECK: Neck supple, no JVD or bruit CARDIOVASCULAR: Heart regular, no murmurs LUNGS/CHEST: Chest clear to auscultation. No rales, rhonchi, wheezing ABDOMEN: Soft, nontender, nondistended. No masses. Normal bowel sounds. EXTREMITIES: Significant edema with stasis dermatitis noted in bilateral extremities. He has AV fistula. SKIN: Necrotic ulceration noted in the left lower extremity MUSCULOSKELETAL: In bed PSYCHIATRIC: Normal mood, affect LYMPHATICS: No lymphadenopathy noted NEUROLOGICAL : No neurological deficits Objective Labs 01/01/25 04:40 01/01/25 04:40 Labs: Laboratory Results - last 24 hr 12/30/24 12/31/24 01/01/25 16:09 06:10 04:40 WBC 5.2 RBC 2.46 L Hgb 7.6 L Hct 23.2 L MCV 94 MCH 30.9 MCHC 32.8 RDW Std Deviation 57.8 H Plt Count 49 L Neut % (Auto) 88 H Lymph % (Auto) 4 L [place] % (Auto) 5 Eos % (Auto) 3 Baso % (Auto) 0 Neut # (Auto) 4.5 Lymph # (Auto) 0.2 L [place] # (Auto) 0.2 Eos # (Auto) 0.1 Baso # (Auto) 0.0 Immature Gran # (Auto) 0.03 H Absolute Nucleated RBC 0.00 Immature Gran % 1 H Nucleated RBC % 0 Sodium 135 L Potassium 4.1 Chloride 95 L Carbon Dioxide 31.6 H Anion Gap 8 BUN 35 H Creatinine 5.6 H* D Estim Creat Clear Calc 21.1 L eGFR 11 L* BUN/Creatinine Ratio 6 L Glucose 123 H Calculated Osmolality 279 Calcium 9.4 Corrected Calcium 10.3 H Iron 71 TIBC 99 L Iron Saturation 71 H Unsat Iron Binding 28 L Total Bilirubin 0.6 AST 26 ALT 16 Alkaline Phosphatase 92 Total Protein 6.0 Albumin 2.9 L Globulin 3.1 Albumin/Globulin Ratio 0.9 L Random Vancomycin 18.0 Misc Test Result Platelets confirmed Blood Type O Positive Antibody Screen POSITIVE Antibody Identification Anti-E Crossmatch See Detail Blood Bank Wristband ID Yes Assessment & Plan Assessment and plan (1) Stasis dermatitis of left lower extremity with venous ulcer due to chronic peripheral venous hypertension: Status: Acute Additional Assessment & Plan Additional Plan: 59-year-old male with PMHx of ESRD HD MWF, hypothyroidism, chronic left lower extremity ulcer, chronic anemia, recurrent GI bleed and biweekly transfusions, presenting with worsening left extremity pain. Admitted for cellulitis of left lower extremity with laceration. Will plan for hemodialysis inpatient MWF. For session today. ESRD HD MWF Anemia of chronic disease Recurrent blood transfusions History of ESRD. Has recurrent GI bleed with biweekly blood transfusions--patient under the care of Dr. Azar and Dr. Ervin from [facility] did receive 2 units of packed red blood cells and Epogen yesterday with dialysis ? Continue inpatient HD MWF ? Daily labs Left lower extremity cellulitis superimposed on Chronic Left lower extremity ulcer with eschar-no need for surgical intervention per surgeon Bilateral chronic venous stasis. Chronic anemia, likely secondary to ESRD, in setting of chronic leg ulcers. Chronic Thrombocytopenia, secondary to ESRD. Hypothyroidism. ? Managed by primary team
[2025-01-01] MEDS: DiphenhydrAMINE 25 MG CAPSULE PO (11:24)
[2025-01-01 11:53] VITALS: BP 100/74; PULSE 67; RESP 19; TEMP 37.1; O2SAT 94
[2025-01-01] MEDS: cefTRIAXone/D5w 1gm IV premix 1 GM/50 ML BAG IV (13:51)
--- NOTE | 2025-01-01 15:31 | ESPR_ITS ---
Documentation for date of: 01/01/25 Subjective Subjective Interval history: Patient is seen and examined at bedside No acute overnight events. Denies any other complaints Vitals are stable. On physical examination, left lower extremity wound is dressed Labs showed WBC 5.2, Hb 7.6, platelets 49, sodium 135, potassium 4.1, chloride 95, bicarb 31.6, BUN 35, creatinine 5.[address] done today showed mild chronic osteomyelitis of anterior tibial shaft Exam Vital Signs Temp Pulse Resp BP Pulse Ox O2 Del Method O2 Flow Rate 98.7 F 67 19 100/74 94 L Room Air 2 01/01/25 11:53 01/01/25 11:53 01/01/25 11:53 01/01/25 11:53 01/01/25 11:53 01/01/25 07:45 12/31/24 16:00 Narrative Exam General: Awake. HEENT: Normocephalic, atraumatic, mucous membranes moist. Heart: Regular rate and rhythm, no murmurs. Lungs: Clear to auscultation with no wheezing or crackles. Abdomen: Soft, nondistended, nontender, positive bowel sounds. ?No guarding or rebound tenderness. Neurologic: Alert and oriented x3, no gross neurological deficit, and patient able to move all 4 extremities. Extremities: Bilateral chronic venous stasis. Chronic ulcer with necrotic patch of approximately 5 x 10 x 7 cm noted on the anterior expected of left lower leg, ulceration noted on the lateral side of the leg, induration noted in the entire left lower extremity. Skin: No rash or ecchymoses. Objective Labs 01/01/25 04:40 01/01/25 04:40 Labs: Laboratory Results - last 24 hr 12/30/24 01/01/25 16:09 04:40 WBC 5.2 RBC 2.46 L Hgb 7.6 L Hct 23.2 L MCV 94 MCH 30.9 MCHC 32.8 RDW Std Deviation 57.8 H Plt Count 49 L Neut % (Auto) 88 H Lymph % (Auto) 4 L [place] % (Auto) 5 Eos % (Auto) 3 Baso % (Auto) 0 Neut # (Auto) 4.5 Lymph # (Auto) 0.2 L [place] # (Auto) 0.2 Eos # (Auto) 0.1 Baso # (Auto) 0.0 Immature Gran # (Auto) 0.03 H Absolute Nucleated RBC 0.00 Immature Gran % 1 H Nucleated RBC % 0 Sodium 135 L Potassium 4.1 Chloride 95 L Carbon Dioxide 31.6 H Anion Gap 8 BUN 35 H Creatinine 5.6 H* D Estim Creat Clear Calc 21.1 L eGFR 11 L* BUN/Creatinine Ratio 6 L Glucose 123 H Calculated Osmolality 279 Calcium 9.4 Corrected Calcium 10.3 H Total Bilirubin 0.6 AST 26 ALT 16 Alkaline Phosphatase 92 Total Protein 6.0 Albumin 2.9 L Globulin 3.1 Albumin/Globulin Ratio 0.9 L Random Vancomycin 18.0 Misc Test Result Platelets confirmed Crossmatch See Detail Quality Measures Quality Measures VTE prophylaxis Assessment & Plan Assessment Current Active Medications: Generic Name Dose Route Start Last Admin Trade Name Freq PRN Reason Stop Dose Admin Acetaminophen 650 mg 12/31/24 09:07 Acetaminophen 325 Mg Tablet PO 01/29/25 18:29 Q6H PRN Fever >100.3 Dextrose 25 ml 12/31/24 02:53 Dextrose 50%-Water Inj 50 Ml Syringe IV 01/30/25 02:52 Q15MIN PRN BG 50-70 responsive npo pt Dextrose 50 ml 12/31/24 02:53 Dextrose 50%-Water Inj 50 Ml Syringe IV 01/30/25 02:52 Q15MIN PRN BG <50 OR BG <70 & pt unresponsive Diphenhydramine HCl 25 mg 01/01/25 10:59 01/01/25 11:24 Diphenhydramine 25 Mg Capsule PO 01/31/25 10:58 25 mg Q6HR PRN Administration ITCHING Glucagon 1 mg 12/31/24 02:53 Glucagon Inj 1 Mg Vial IM Q15MIN PRN BG <70, and no IV access Hydromorphone HCl 1 mg 12/30/24 18:30 Hydromorphone Inj 2 Mg/Ml Vial IVP 01/04/25 18:29 Q4H PRN Pain 7 - 10 Ceftriaxone Sodium/Dextrose 1 gm in 50 mls @ 100 mls/hr 12/30/24 18:38 01/01/25 13:51 Rocephin/D5w 1gm Iv Premix IV 01/06/25 18:37 100 mls/hr QDAY@1400 MARIANO Administration Albumin Human 25 gm in 100 mls @ 100 mls/hr 12/31/24 09:36 12/31/24 09:42 Albuminar-25 Ivpb IV 01/03/25 09:35 100 mls/hr PRN PRN Administration DIALYSIS Levothyroxine Sodium 112 mcg 12/31/24 06:00 01/01/25 05:13 Levothyroxine Sodium 112 Mcg Tablet PO 01/30/25 05:59 112 mcg ACBR MARIANO Administration Ondansetron HCl 4 mg 12/30/24 18:30 Ondansetron Inj 2 Mg/Ml Inj 2 Ml IV 01/29/25 18:29 Q6H PRN NAUSEA OR VOMITING Protocol Pharmacy Consult 1 each 12/31/24 09:00 Vancomycin Pharmacy To Dose 1 Each Each IV 01/30/25 08:59 QDAY PRN PROTOCOL Vitamin B Complex/Vit C/Folic Acid 1 tab 12/31/24 09:00 01/01/25 08:46 Vit B12/Vit C/Fa (Nephrovite) Tablet PO 01/30/25 08:59 1 tab QDAY MARIANO Administration Plan A 59-year-old male with significant past medical history of hypothyroidism, chronic left lower extremity ulcer with dermatitis, ESRD on HD [M/W/F] since [address] Cotton, bilateral chronic venous stasis, chronic anemia since 2 years on PRBC transfusion once in every 2 weeks presented to the hospital with chief complaints of generalized weakness, worsening of chronic ulcer on left lower extremity since 3 days and admitted for left lower extremity cellulitis with chronic ulcer # Chronic osteomyelitis of left lower extremity # Left lower extremity cellulitis superimposed on # chronic Left lower extremity ulcer. # Bilateral chronic venous stasis. -Patient had history of lower extremity infection 11 years ago following which patient ended up on dialysis due to severe cellulitis. -Patient endorsed that later the infection resolved leaving chronic venous stasis. -Reported that since 2 years, patient had chronic dermatitis with left lower extremity ulcer and is following wound care on and off. -Vitals are stable at the time of admission. -Labs showed WBC 5.9, Hb 6.9, platelets 85, sodium 132, chloride 93, BUN 38, creatinine 7.2, lactate 1.9, procalcitonin 2.17. -Consulted general surgery Dr Lozano, appreciate recommendations. Plan: -Started on ceftriaxone and vancomycin [12/30- -Referral to wound care done. -IV Dilaudid as needed for pain. -CT of left lower extremity without contrast is done that showed mild chronic osteomyelitis of anterior tibial shaft # ESRD on HD [M/W/F]. -Patient is on hemodialysis since 11 years. -Patient had AV fistula on left upper extremity. -Patient is still able to make some amount of urine. -Patient reported that he was trying to get onto transplant list, he was rejected once as he is having overweight. -Patient missed dialysis on 12/30/2024 due to generalized weakness and got admitted into the hospital. Plan: -Dr. Cotton is consulted, will appreciate her recommendations. -HD as per his routine dialysis schedule -Nephro-Martín. -Avoid nephrotoxic and renally dose medications. # Chronic anemia, likely secondary to ESRD, in setting of chronic leg ulcers. # Chronic Thrombocytopenia, secondary to ESRD. -Patient reported that he is having anemia since 2 years and receiving blood transfusions once in every 2 weeks in the ED. -Bone marrow biopsy was done and it did not show any significant pathology due to inadequate sample. Plan: - PRBC transfusion today (2 total since admission). - Posttransfusion H&H. - No evidence of bleeding. # Hypothyroidism. -Patient is using 112 mcg of levothyroxine. Plan: -Resume his home levothyroxine. Hospital Maintenance: Dispo: MedSurg. DVT ppx: Held for now in view of anemia and thrombocytopenia. GI ppx: Not needed as of now. Diet: Renal. IV lines: Peripheral. Code status: Full code. Patient plan of care was discussed with the attending physician, Dr. Stefan Gallo, PGY1 Attending Provider Attestation/Addendum I attest that I was physically present for the evaluation, physical examination, lab and imaging review of the patient with the residents. I discussed the case with the residents and agree with the findings and plans of care as documented above. Patient appears comfortable at bedside.? Denies any new complaints.? He received total of 3 units PRBC.? Hemoglobin this morning stable at 7.6.? Patient also received Epogen with hemodialysis yesterday.? Platelets remain low at 49 today.? Continues to be on IV antibiotics.? Vitals are stable, saturating well on room air.? CT of lower extremity shows mild chronic osteomyelitis of distal anterior tibial soft but no soft tissue abscess.? We will obtain infectious disease consult.? Blood culture had no growth in 24 hours, pending final culture results. Farrah Aviles MD
[2025-01-01 16:00] VITALS: BP 105/49; PULSE 84; RESP 16; TEMP 36.4; O2SAT 93
--- NOTE | 2025-01-01 16:12 | PC.SS ---
Sincere Weaver is 59 year old male admitted to [facility] for cellulitis and chronic ulcer on Lt foot. SS conducted bedside contact with the patient to complete initial assessment and to discuss discharge planning.? SW used all precautionary measures to complete initial. Role and reason for the contact was explained to Sincere. Pt is alert and oriented times 4. Patient confirmed demographic information address on facesheet is accurate. Patient identifies ester Brambilaer, as his surrogate decision maker. Pt states prior to hospitalization he is able to complete most ADL?s independently. Pt had walker delivered to his home day he was BIBA Pt does not use O2. Pt has dialysis with [facility] at 10AM MWF. Pt confirmed no diagnosis of MH but has personal history of depression, currently pt reports not going to therapist and knows how to contact them. Pt states is not currently taking any psychotropic medications. No history of substance abuse. Pts PCP is Josseline Cotton. Pharmacy of choice is [facility]. Discharge options discussed and the pt will return home. Pt did not have advance life directive and not receptive to paperwork; pt stated he has appointment next week to set up ALD. Family will provide transportation upon DC. No further intervention required at this time, home health care social worker would be available to address any further concerns. DC Plan: Home Contact: brother Brambila, Address: Confirmed on face sheet PCP: Josseline Cotton
--- NOTE | 2025-01-01 16:14 | PC.SS ---
SS discussed medicare; pt alert and oriented times 4
--- NOTE | 2025-01-01 18:37 | XR_ITS ---
Examination: CT left lower extremity, without contrast. 2-D sagittal reconstructions. 2-D coronal reconstructions. 3-D reconstructions. Date and time of exam:January 03, 2025 0814 hrs. Indications: Left lower leg swelling and pain beginning several days ago CTDI: vol (mGy):11 DLP: (mGycm):813 Technique: Multiple 1.25 mm axial sections of the left lower leg without intravenous contrast have been obtained. 2-D sagittal and coronal reconstructions have been obtained. 3-D reconstructions have been obtained. Low dose protocols were performed. One or more of the following dose reduction techniques were used; automated exposure control, adjustment of the mA and/or KV according to patient size, use of iterative reconstruction technique. Findings: Marked edema in the subcutaneous tissue surrounding the lower leg Periosteal new bone involving the anterior distal tibia. No soft tissue abscess Muscle atrophy Diffuse skin thickening and cellulitis pattern Impression: Mild chronic osteomyelitis distal anterior tibial shaft. No soft tissue abscess
--- NOTE | 2025-01-01 19:25 | PC.NURSE ---
Patient started c/o of dizziness and nausea after trying to get out of bed, also having some gas/chest pain, MD Dr. Prieto and Dr. De Leon at bedside to assess patient, orders given and carried through, will continue to monitor.
--- NOTE | 2025-01-01 19:32 | EKG_ITS ---
[facility] Test Date: 2025-01-01 Pat Name: ERICK WARNER [facility] Gender: Male Registrar Assistant: RAJIV : 1965 Requested By: Thomas Prieto Order Number: [id number] Reading MD: Thomas Prieto Measurements Intervals Stites Rate: 68 P: NM: QRS: 17 QRSD: 120 T: 72 QT: 444 QTc: 474 Interpretive Statements ATRIAL FIBRILLATION WITH ABERRANT CONDUCTION OR VENTRICULAR PREMATURE COMPLEXES POSSIBLE LATERAL MYOCARDIAL INFARCTION , OF INDETERMINATE AGE Compared to ECG 10/24/2024 14:42:46 Ventricular premature complex(es) now present Aberrant conduction of supraventricular beat(s) now present Myocardial infarct finding now present Sinus rhythm no longer present Right-axis deviation no longer present Right bundle-branch block no longer present /store/[id number].pdf
[2025-01-01] MEDS: PANTOPRAZOLE INJ 40 MG VIAL IV (19:46)
[2025-01-01 20:00] VITALS: BP 93/54; PULSE 78; RESP 17; TEMP 36.1; O2SAT 99
[2025-01-01 20:08] LABS: Basophils % (Auto) 0 % (0-2.5); Eosinophils # (Auto) 0.2 Thou/mm3 (0.0-0.5); Eosinophils % (Auto) 5 % (0-10); Hematocrit 23.8 % (41.0-53.0); Immature Granulocytes % (Auto) 2 % (0-0); Immature Granulocytes Auto 0.07 Thou/mm3 (0.00-0.00); Lymphocytes # (Auto) 0.2 Thou/mm3 (1.0-4.8); Lymphocytes % (Auto) 5 % (10-50); Mean Corpuscular HGB Conc 33.6 g/dl (31.0-37.0); Mean Corpuscular Volume 92 fL (80-100); Monocytes # (Auto) 0.2 Thou/mm3 (0.0-0.8); Monocytes % (Auto) 4 % (0-12); Neutrophils % (Auto) 85 % (37-80); Nucleated Red Blood Cell % 0 /100 WBC (0); RDW Standard Deviation 55.8 fL (35.1-43.9); Red Blood Count 2.58 Miln/mm3 (4.50-5.90); White Blood Count 4.7 Thou/mm3 (3.8-10.6)
[2025-01-01 20:10] LABS: Platelet Count 48 Thou/mm3 (140-440)
[2025-01-01 20:22] LABS: Troponin I < 0.020 ng/mL (0.0-0.045)
[2025-01-01 21:19] LABS: Slide Review Platelets confirmed
[2025-01-01] MEDS: Magnesium Sulfate 2 GM Ivpb 2 GM/50 ML BAG IV (21:32)
[2025-01-01 21:53] LABS: Alanine Aminotransferase 68 U/L (10-49); Albumin, Serum 2.9 gm/dL (3.5-5.0); Albumin/Globulin Ratio 0.9 (1.2-2.2); Alkaline Phosphatase 189 U/L (46-116); Anion Gap 11 (7-16); Aspartate Amino Transferase 132 U/L (0-34); BUN/Creatinine Ratio 7 Ratio (12-20); Bilirubin,Total 0.8 mg/dL (0.3-1.2); Blood Urea Nitrogen 48 mg/dL (9-23); Calcium 9.2 mg/dL (8.3-10.6); Calcium (Corrected) 10.1 mg/dL (8.5-10.1); Carbon Dioxide 29.5 mMol/L (20.0-31.0); Chloride 93 mMol/L (98-107); Creatinine (Component) 6.5 mg/dL (0.6-1.3); Estimated Creatinine Clearance 18.2 mL/min (>60); Globulin 3.2 gm/dL (2.3-3.5); Glucose 132 mg/dL (74-106); Magnesium 1.6 mg/dL (1.6-2.6); Osmolality,Calculated 280 (275-295); Phosphorous 4.3 mg/dL (2.4-5.1); Sodium 133 mMol/L (136-145); Total Protein 6.1 gm/dL (5.7-8.2); eGFR 9 See Note
[2025-01-02] VITALS (31 sets, daily range): BP systolic 93–147; BP diastolic 36–125; PULSE 56–109; RESP 17–18; TEMP 36.1–36.9; O2SAT 93–100
[2025-01-02 01:06] LABS: Folate 7.93 ng/mL (>5.38); Vitamin B12 260 pg/mL (211-911)
[2025-01-02 05:12] LABS: Basophils % (Auto) 0 % (0-2.5); Eosinophils # (Auto) 0.2 Thou/mm3 (0.0-0.5); Eosinophils % (Auto) 5 % (0-10); Hematocrit 23.1 % (41.0-53.0); Immature Granulocytes % (Auto) 7 % (0-0); Immature Granulocytes Auto 0.25 Thou/mm3 (0.00-0.00); Lymphocytes # (Auto) 0.2 Thou/mm3 (1.0-4.8); Lymphocytes % (Auto) 5 % (10-50); Mean Corpuscular HGB Conc 32.9 g/dl (31.0-37.0); Mean Corpuscular Hemoglobin 31.5 pg (25.0-35.0); Mean Corpuscular Volume 96 fL (80-100); Monocytes # (Auto) 0.1 Thou/mm3 (0.0-0.8); Monocytes % (Auto) 4 % (0-12); Neutrophils # (Auto) 2.7 Thou/mm3 (1.8-7.7); Neutrophils % (Auto) 79 % (37-80); Nucleated Red Blood Cell % 0 /100 WBC (0); RDW Standard Deviation 58.2 fL (35.1-43.9); Red Blood Count 2.41 Miln/mm3 (4.50-5.90); White Blood Count 3.4 Thou/mm3 (3.8-10.6)
[2025-01-02 05:21] LABS: Hemoglobin 7.6 g/dL (13.5-16.0); Platelet Count 41 Thou/mm3 (140-440)
[2025-01-02] MEDS: LEVOTHYROXINE SODIUM 112 MCG TABLET PO (05:47)
[2025-01-02 06:02] LABS: Slide Review Platelets confirmed
[2025-01-02 06:05] LABS: Alanine Aminotransferase 75 U/L (10-49); Albumin, Serum 2.7 gm/dL (3.5-5.0); Albumin/Globulin Ratio 0.9 (1.2-2.2); Alkaline Phosphatase 258 U/L (46-116); Anion Gap 10 (7-16); Aspartate Amino Transferase 110 U/L (0-34); BUN/Creatinine Ratio 8 Ratio (12-20); Bilirubin,Total 1.1 mg/dL (0.3-1.2); Blood Urea Nitrogen 51 mg/dL (9-23); Calcium 9.1 mg/dL (8.3-10.6); Calcium (Corrected) 10.1 mg/dL (8.5-10.1); Carbon Dioxide 30.1 mMol/L (20.0-31.0); Chloride 94 mMol/L (98-107); Creatinine (Component) 6.7 mg/dL (0.6-1.3); Estimated Creatinine Clearance 17.7 mL/min (>60); Globulin 2.9 gm/dL (2.3-3.5); Glucose 89 mg/dL (74-106); Osmolality,Calculated 280 (275-295); Sodium 134 mMol/L (136-145); Total Protein 5.6 gm/dL (5.7-8.2); Vancomycin,Random 15.7 mcg/mL; eGFR 9 See Note
--- NOTE | 2025-01-02 09:17 | ESPR_ITS ---
Documentation for date of: 01/02/25 Subjective Subjective Interval history: Mr. Weaver is a 59-year-old male with a known history of ESRD on hemodialysis (HD) thrice weekly (Thursday/Thursday/Thursday), under the care of Dr. Cotton for the past 11 years. He presented to the ED with generalized weakness and worsening of a chronic left lower extremity ulcer, which has been present for approximately 2.5 years. He reports being at baseline until 3 days ago, when he began experiencing generalized weakness without associated fever, nausea, or vomiting. He endorses that he scratched his left leg, which led to an ulcerative lesion at the site. The patient states he has been intermittently seen by wound care and has been managing the wound at home with antiseptics. He also reports chronic venous stasis for over 8 years with progressive worsening of the ulcer over the past 2 years. He previously attempted evaluation for renal transplantation but was not listed due to elevated body weight. The patient missed his most recent dialysis session scheduled for 12/30/2024 due to worsening weakness. His last dialysis session was on 12/28/2024. Initial vitals: BP 104/52 mmHg, HR 78 bpm, RR 20/min, Temp 98.2?F, SpO? 100% on room air Laboratory results: Sodium 134, potassium 4.4, chloride 94, BUN 46, creatinine 8.1, EGFR 7, TIBC 99, iron saturation 71, CRP 13.3, Pro-Calc 2.17, WBC 4.3, Hgb 7.0, PLT 58. Cultures are pending, currently on DILAUDID and ZOSYN. PMHx: ESRD on HD, hypothyroidism, chronic venous stasis, chronic anemia PSHx: Left upper extremity AV fistula placement MEDS: Pending med rec no need for any surgical intervention. Patient wants to follow-up with wound care center. ALLERGIES: Adhesive tape FHx: Not significant SH: Denies tobacco, alcohol or drug use Nephrology was consulted for inpatient hemodialysis. 01/01/2025 patient currently seen in medical floor. Resting comfortably. Still having significant discomfort in the lower extremities. He has a huge ulcers on the left leg. Seen by surgeon-if he is not discharged-he will need dialysis tomorrow. 01/02/2025 examined at bedside. Complaining of lower extremity pain. Bilaterally skin desquamation improved with wound care. CT showed osteomyelitis of the left lower extremity, surgery on board, pending ID recommendation. Advised against central line, contraindicated with HD. Can do ABX thru HD cath. Exam Vital Signs Temp Pulse Resp BP Pulse Ox O2 Del Method O2 Flow Rate 98.1 F 69 18 113/49 L 97 Room Air 2 01/02/25 08:35 01/02/25 09:15 01/02/25 08:35 01/02/25 09:15 01/02/25 08:35 01/02/25 07:24 01/01/25 16:00 Narrative Exam CONSTITUTIONAL: Patient denies any fever, chills. HEENT: Denies any visual disturbances or hearing problems. CARDIOVASCULAR: Patient denies any chest pain, shortness of breath. ++ swelling in the lower extremities. PULMONARY: Patient denies any shortness of breath, cough. GASTROINTESTINAL: Patient denies any abdominal pain, constipation, nausea, vomiting, diarrhea. GENITOURINARY: Patient denies any urinary symptoms of burning or frequency or hematuria, denies any form in the urine. SKIN: Significant wounds on the left leg MUSCULOSKELETAL: Complaining of gait imbalance NEUROLOGICAL: Denies any neurological problems of strokes, seizures or confusion. Denies any memory problems. PSYCHIATRIC: Denies any depression or anxiety. LYMPHATICS : No lymphadenopathy Objective Labs 01/02/25 04:11 01/02/25 04:11 Labs: Laboratory Results - last 24 hr 12/31/24 01/01/25 01/02/25 06:10 19:55 04:11 WBC 4.7 3.4 L RBC 2.58 L 2.41 L Hgb 8.0 L 7.6 L Hct 23.8 L 23.1 L MCV 92 96 MCH 31.0 31.5 MCHC 33.6 32.9 RDW Std Deviation 55.8 H 58.2 H Plt Count 48 L 41 L Neut % (Auto) 85 H 79 Lymph % (Auto) 5 L 5 L Lassen % (Auto) 4 4 Eos % (Auto) 5 5 Baso % (Auto) 0 0 Neut # (Auto) 4.0 2.7 Lymph # (Auto) 0.2 L 0.2 L Lassen # (Auto) 0.2 0.1 Eos # (Auto) 0.2 0.2 Baso # (Auto) 0.0 0.0 Immature Gran # (Auto) 0.07 H 0.25 H Absolute Nucleated RBC 0.00 0.00 Immature Gran % 2 H 7 H Nucleated RBC % 0 0 Sodium 133 L 134 L Potassium 4.0 4.0 Chloride 93 L 94 L Carbon Dioxide 29.5 30.1 Anion Gap 11 10 BUN 48 H 51 H Creatinine 6.5 H* D 6.7 H* Estim Creat Clear Calc 18.2 L 17.7 L eGFR 9 L* 9 L* BUN/Creatinine Ratio 7 L 8 L Glucose 132 H 89 Calculated Osmolality 280 280 Calcium 9.2 9.1 Corrected Calcium 10.1 10.1 Phosphorus 4.3 Magnesium 1.6 Total Bilirubin 0.8 1.1 AST 132 H 110 H ALT 68 H 75 H Alkaline Phosphatase 189 H D 258 H D Troponin I < 0.020 Total Protein 6.1 5.6 L Albumin 2.9 L 2.7 L Globulin 3.2 2.9 Albumin/Globulin Ratio 0.9 L 0.9 L Vitamin B12 260 Folate 7.93 Random Vancomycin 15.7 Misc Test Result Platelets confirmed Platelets confirmed Crossmatch 01/02/25 07:52 WBC RBC Hgb Hct MCV MCH MCHC RDW Std Deviation Plt Count Neut % (Auto) Lymph % (Auto) Lassen % (Auto) Eos % (Auto) Baso % (Auto) Neut # (Auto) Lymph # (Auto) Lassen # (Auto) Eos # (Auto) Baso # (Auto) Immature Gran # (Auto) Absolute Nucleated RBC Immature Gran % Nucleated RBC % Sodium Potassium Chloride Carbon Dioxide Anion Gap BUN Creatinine Estim Creat Clear Calc eGFR BUN/Creatinine Ratio Glucose Calculated Osmolality Calcium Corrected Calcium Phosphorus Magnesium Total Bilirubin AST ALT Alkaline Phosphatase Troponin I Total Protein Albumin Globulin Albumin/Globulin Ratio Vitamin B12 Folate Random Vancomycin Misc Test Result Crossmatch See Detail Quality Measures Quality Measures VTE prophylaxis Assessment & Plan Assessment Current Active Medications: Generic Name Dose Route Start Last Admin Trade Name Freq PRN Reason Stop Dose Admin Acetaminophen 650 mg 12/31/24 09:07 Acetaminophen 325 Mg Tablet PO 01/29/25 18:29 Q6H PRN Fever >100.3 Dextrose 25 ml 12/31/24 02:53 Dextrose 50%-Water Inj 50 Ml Syringe IV 01/30/25 02:52 Q15MIN PRN BG 50-70 responsive npo pt Dextrose 50 ml 12/31/24 02:53 Dextrose 50%-Water Inj 50 Ml Syringe IV 01/30/25 02:52 Q15MIN PRN BG <50 OR BG <70 & pt unresponsive Diphenhydramine HCl 25 mg 01/01/25 10:59 01/01/25 11:24 Diphenhydramine 25 Mg Capsule PO 01/31/25 10:58 25 mg Q6HR PRN Administration ITCHING Glucagon 1 mg 12/31/24 02:53 Glucagon Inj 1 Mg Vial IM Q15MIN PRN BG <70, and no IV access Hydromorphone HCl 1 mg 12/30/24 18:30 Hydromorphone Inj 2 Mg/Ml Vial IVP 01/04/25 18:29 Q4H PRN Pain 7 - 10 Ceftriaxone Sodium/Dextrose 1 gm in 50 mls @ 100 mls/hr 12/30/24 18:38 01/01/25 13:51 Rocephin/D5w 1gm Iv Premix IV 01/06/25 18:37 100 mls/hr QDAY@1400 MARIANO Administration Albumin Human 25 gm in 100 mls @ 100 mls/hr 12/31/24 09:36 12/31/24 09:42 Albuminar-25 Ivpb IV 01/03/25 09:35 100 mls/hr PRN PRN Administration DIALYSIS Levothyroxine Sodium 112 mcg 12/31/24 06:00 01/02/25 05:47 Levothyroxine Sodium 112 Mcg Tablet PO 01/30/25 05:59 112 mcg ACBR MARIANO Administration Ondansetron HCl 4 mg 12/30/24 18:30 Ondansetron Inj 2 Mg/Ml Inj 2 Ml IV 01/29/25 18:29 Q6H PRN NAUSEA OR VOMITING Protocol Pharmacy Consult 1 each 12/31/24 09:00 Vancomycin Pharmacy To Dose 1 Each Each IV 01/30/25 08:59 QDAY PRN PROTOCOL Vitamin B Complex/Vit C/Folic Acid 1 tab 12/31/24 09:00 01/01/25 08:46 Vit B12/Vit C/Fa (Nephrovite) Tablet PO 01/30/25 08:59 1 tab QDAY MARIANO Administration Plan 59-year-old male with PMHx of ESRD HD MWF, hypothyroidism, chronic left lower extremity ulcer, chronic anemia, recurrent GI bleed and biweekly transfusions, presenting with worsening left extremity pain. Admitted for cellulitis of left lower extremity with laceration. Will plan for hemodialysis inpatient MWF. For session today. ESRD HD MWF Anemia of chronic disease Recurrent blood transfusions History of ESRD. Has recurrent GI bleed with biweekly blood transfusions--patient under the care of Dr. Azar and Dr. Ervin from [facility] did receive 2 units of packed red blood cells and Epogen yesterday with dialysis ? Continue inpatient HD MWF ? Daily labs Left lower extremity osteomyelitis, cellulitis superimposed on Chronic Left lower extremity ulcer with eschar-no need for surgical intervention per surgeon Bilateral chronic venous stasis. Chronic anemia, likely secondary to ESRD, in setting of chronic leg ulcers. Chronic Thrombocytopenia, secondary to ESRD. Hypothyroidism. ? Managed by primary team Thank you for the opportunity to participate in the patient's care. Case was discussed with attending, Dr. Cotton. Sherine Hinds DO PGYI Attending Provider Attestation/Addendum Patient seen and examined with resident physician Dr. Basurto. Note reviewed, agree with findings and recommendations. Admitted with weakness, significant in left leg ulcers with oozing Patient currently seen on dialysis. Tolerating dialysis without any problems. Hemodialysis for 3.5 hours, 2K, ultrafiltration 2-3 L, Epogen 6000, no heparin ordered. Plan of care discussed with the dialysis nurse. Please see dialysis flowsheet for further details. Patient with osteomyelitis of the left leg. Will need antibiotics for 6 weeks will be given at the dialysis.
[2025-01-02] MEDS: ALBUMIN HUMAN 25% IVPB 25 GM/100 ML BTL IV (09:48)
--- NOTE | 2025-01-02 10:01 | PD.IDPROG ---
Subjective Subjective Interval history: osteo on imaging per radiology Exam Vital Signs Temp Pulse Resp BP Pulse Ox O2 Del Method O2 Flow Rate 98.1 F 73 18 100/42 L 97 Room Air 2 01/02/25 08:35 01/02/25 09:53 01/02/25 08:35 01/02/25 09:53 01/02/25 08:35 01/02/25 07:24 01/01/25 16:00 Narrative Exam chronic edema of L left leg noted. not helped by support hose or elevation overtly, Objective - Internal Medicine Labs 01/02/25 04:11 01/02/25 04:11 Labs: Laboratory Results - last 24 hr 12/31/24 01/01/25 01/02/25 06:10 19:55 04:11 WBC 4.7 3.4 L RBC 2.58 L 2.41 L Hgb 8.0 L 7.6 L Hct 23.8 L 23.1 L MCV 92 96 MCH 31.0 31.5 MCHC 33.6 32.9 RDW Std Deviation 55.8 H 58.2 H Plt Count 48 L 41 L Neut % (Auto) 85 H 79 Lymph % (Auto) 5 L 5 L Boundary % (Auto) 4 4 Eos % (Auto) 5 5 Baso % (Auto) 0 0 Neut # (Auto) 4.0 2.7 Lymph # (Auto) 0.2 L 0.2 L Boundary # (Auto) 0.2 0.1 Eos # (Auto) 0.2 0.2 Baso # (Auto) 0.0 0.0 Immature Gran # (Auto) 0.07 H 0.25 H Absolute Nucleated RBC 0.00 0.00 Immature Gran % 2 H 7 H Nucleated RBC % 0 0 Sodium 133 L 134 L Potassium 4.0 4.0 Chloride 93 L 94 L Carbon Dioxide 29.5 30.1 Anion Gap 11 10 BUN 48 H 51 H Creatinine 6.5 H* D 6.7 H* Estim Creat Clear Calc 18.2 L 17.7 L eGFR 9 L* 9 L* BUN/Creatinine Ratio 7 L 8 L Glucose 132 H 89 Calculated Osmolality 280 280 Calcium 9.2 9.1 Corrected Calcium 10.1 10.1 Phosphorus 4.3 Magnesium 1.6 Total Bilirubin 0.8 1.1 AST 132 H 110 H ALT 68 H 75 H Alkaline Phosphatase 189 H D 258 H D Troponin I < 0.020 Total Protein 6.1 5.6 L Albumin 2.9 L 2.7 L Globulin 3.2 2.9 Albumin/Globulin Ratio 0.9 L 0.9 L Vitamin B12 260 Folate 7.93 Random Vancomycin 15.7 Misc Test Result Platelets confirmed Platelets confirmed Crossmatch 01/02/25 07:52 WBC RBC Hgb Hct MCV MCH MCHC RDW Std Deviation Plt Count Neut % (Auto) Lymph % (Auto) Boundary % (Auto) Eos % (Auto) Baso % (Auto) Neut # (Auto) Lymph # (Auto) Boundary # (Auto) Eos # (Auto) Baso # (Auto) Immature Gran # (Auto) Absolute Nucleated RBC Immature Gran % Nucleated RBC % Sodium Potassium Chloride Carbon Dioxide Anion Gap BUN Creatinine Estim Creat Clear Calc eGFR BUN/Creatinine Ratio Glucose Calculated Osmolality Calcium Corrected Calcium Phosphorus Magnesium Total Bilirubin AST ALT Alkaline Phosphatase Troponin I Total Protein Albumin Globulin Albumin/Globulin Ratio Vitamin B12 Folate Random Vancomycin Misc Test Result Crossmatch See Detail Assessment & Plan A&P Narrative osteo on imaging ckd 5 on hd, cause of ckd per renal no bacteremia hypothyroid ok for ancef 2 gm with each hd rx and vanco with hd overall for 6 weeks from initiation weekly cbc, renal panel, esr while on iv rx. access likely needs to stay in for hd and with no bacteremia, that is ok with me Time Spent With Patient Time: Total time spent is greater than 50% in coordination of care (as documented) at patient's floor/unit and/or counseling patient:
--- NOTE | 2025-01-02 14:23 | PC.SS ---
Addendum entered by Trang Little 01/02/25 15:21: SS follow up note; SS faxed over Discharge summary and discharge packet with IV ABX dosage and duration. Original Note: SS follow up note; Patient will discharge home today, patient will need IV ABX. SS contacted Opal from [facility] and she informed SS to sent over discharge orders.
--- NOTE | 2025-01-02 14:42 | ESDS_ITS ---
Planned Discharge Date 01/02/25 DS: Providers Provider Date of admission: 12/30/24 18:31 Primary care physician: Shad Cotton MD Admitting Provider: Farrah Aviles MD Attending Provider on Admission: Farrah Aviles MD Consults: 12/30/24 17:50 Referral Wound Care Stat Comment: 12/30/24 17:51 Consult to Nephrology Stat Comment: ESRD, leg infection Consulting Provider: Shad Cotton 12/30/24 18:40 Consult to General Surgery Routine Comment: celluitis with chronic ulcer with necrotic patch Consulting Provider: Emerson Lozano 01/01/25 09:42 Referral Physical Therapy Routine Comment: Physician Instructions: 01/02/25 08:16 Consult to Infectious Diseases Stat Comment: osteomyelitis Consulting Provider: Jerrod Melissa Attending Provider on DC: Dax Gallo MD Discharging Provider: Dax Gallo MD DS: Diagnosis Problem List Completed Was Problem List Reviewed/Reconciled?: Yes Hospital Course Hospital Course Hospital course: A 59-year-old male with significant past medical history of hypothyroidism, chronic left lower extremity ulcer with dermatitis, ESRD on HD [M/W/F] since [address] Cotton, bilateral chronic venous stasis, chronic anemia since 2 years on PRBC transfusion once in every 2 weeks presented to the hospital with chief complaints of generalized weakness, worsening of chronic u lcer on left lower extremity since 3 days and diagnosed to have osteomyelitis of left lower xtremity Hospital course: Vitals are stable during admission. Labs showed WBC 5.9, Hb 6.9, platelets 85, sodium 132, chloride 93, BUN 38, creatinine 7.2. General surgeon Dr Lozano was consulted and recommended no surgical intervention as of now and recommended to continue local wound care. Lay Out Inspector, Dr. Cotton is consulted during the hospital stay and patient got dialysis according to his routine schedule. Patient received 4 units of PRBC transfusion during the hospital stay. Lower extremity CT showed mild chronic osteomyelitis distal anterior tibial shaft. ID specialist Dr Melissa was consulted and he recommended ceftriaxone 2 g and vancomycin IV with each HD treatment for 6 weeks duration, till [address] cotton is informed about the antibiotics. Patient is discharged to home with the following medications and recommendations -Follow-up with PCP within 1 week of discharge. If you do not have appointment, please follow-up with the [facility] with Dr. Gallo. Call [phone] to make an appointment. -Follow up with Dr. Cotton for Hemodialysis -ceftriaxone 2 gm IV and vancomycin IV(dose depending on timing of administration and dialyser permeability with each hemodialysis) overall for 6 weeks from initiation till 11 feb 2025 -Continue rest of the home medications -Recommended salt and fluid restriction. -Return to ED if symptoms persist or return # Chronic osteomyelitis of left lower extremity # Left lower extremity cellulitis superimposed on # chronic Left lower extremity ulcer. # Bilateral chronic venous stasis. # ESRD on HD [M/W/F]. # Chronic anemia, likely secondary to ESRD, in setting of chronic leg ulcers. # Chronic Thrombocytopenia, secondary to ESRD. # Hypothyroidism. Patient plan of care was discussed with the attending physician, Dr. Aviles and senior resident Dr. Kenneth Gallo, PGY1 Time Spent with Patient Time attestation: Total time spent providing and/or coordinating discharge services: Time spent: Less than 30 minutes Exam Vital Signs Temp Pulse Resp BP Pulse Ox O2 Del Method O2 Flow Rate 98.2 F 66 18 107/46 L 97 Room Air 2 01/02/25 12:38 01/02/25 12:38 01/02/25 12:38 01/02/25 12:38 01/02/25 12:38 01/02/25 07:24 01/02/25 12:38 Narrative Exam General: Awake. HEENT: Normocephalic, atraumatic, mucous membranes moist. Heart: Regular rate and rhythm, no murmurs. Lungs: Clear to auscultation with no wheezing or crackles. Abdomen: Soft, nondistended, nontender, positive bowel sounds. ?No guarding or rebound tenderness. Neurologic: Alert and oriented x3, no gross neurological deficit, and patient able to move all 4 extremities. Extremities: Bilateral chronic venous stasis. Chronic ulcer with necrotic patch of approximately 5 x 10 x 7 cm noted on the anterior expected of left lower leg, ulceration noted on the lateral side of the leg, induration noted in the entire left lower extremity. Skin: No rash or ecchymoses. Discharge Plan Plan Patient Disposition: HOME (Self Care) Disposition Comment: Stable Patient condition on transfer: Stable Care Plan Goals: -Follow-up with PCP within 1 week of discharge. If you do not have appointment, please follow-up with the [facility] with Dr. Gallo. Call [phone] to make an appointment. -Follow up with Dr. Cotton for Hemodialysis -ceftriaxone 2 gm IV and vancomycin IV(dose depending on timing of administration and dialyser permeability with each hemodialysis) overall for 6 weeks from initiation till 11 feb 2025 -Continue rest of the home medications -Recommended salt and fluid restriction. -Return to ED if symptoms persist or return Follow up at [facility], [address] [place] [address]. Call [phone] for appointment. -May shower than change dressing. -Wash hands and remove dressing. -Cleanse wound with wound cleanser spray and pat dry. -Wash hands again - Apply thin layer of therahoney gel to wound bed. Layer with adaptic gauze than ABD pad. -Wrap with kerlix roll than apply removable compressions - Change daily and as needed for falling off. If active bleeding occurs, apply tight dressing and return to MD or ER. ? Notify primary doctor or return to Emergency Room if any of the following: ? Fever above 100.6? F. ? Increased pain ? Increase swelling ? Red streaks around your wound ? Drainage becomes foul smelling or changes color ? The wound is larger or deeper ? The wound looks dried out or dark ? Bleeding that does not stop with holding pressure Prescriptions/Referrals Prescriptions/Med Rec: Continued furosemide 40 mg Tablet 40 mg PO QDAY carvedilol 12.5 mg Tablet 12.5 mg PO BID Rx Instructions: must administer with a meal/food levothyroxine 100 mcg tablet 112 mcg PO DAILY diphenhydramine HCl [Benadryl] 25 mg Capsule 25 mg PO TID PRN (Reason: Itching) Mere-Martín Rx 1-60-300 mg-mg-mcg tablet 1 tab PO QDAY Patient Comments: TAKE 1 TABLET BY MOUTH DAILY Velphoro 500 mg tablet,chewable 500 mg PO QID Patient Comments: CHEW AND SWALLOW 1 TABLET BY MOUTH FOUR TIMES DAILY WITH FOOD Mere-Martín 0.8 mg Tablet 1 tab PO QDAY Qty: 30 0RF Referrals: Shad Cotton MD [Primary Care Provider] - Patient/Caregiver Discharge Instructions Education Materials: Nutrition for Wound Healing, Kidney Disease Potassium in Diet, Kidney Disease Fluid Intake, Changing Dressing Dc, Wound Care Dc Print Language: Slovenian Stand Alone Forms: Bridget Award Info., Patient Portal Info Letter Discharge Order Discharge Orders: Discharge (Routine); Ordered 01/02/25 Ordered By: Dax Gallo Quality Discharge Quality Measures none MD Attestestation MD Attestation I attest that I was physically present for the evaluation, physical examination, lab and imaging review of the patient with the residents. I discussed the case with the residents and agree with the findings and plans of care as documented above. Farrah Aviles MD
[2025-01-02] MEDS: VIT B12/Vit C/FA (Nephrovite) TABLET 1 TAB PO (14:44)
[2025-01-02] MEDS: cefTRIAXone/D5w 1gm IV premix 1 GM/50 ML BAG IV ×2 (14:45→15:22)
[2025-01-02] MEDS: DiphenhydrAMINE 25 MG CAPSULE PO (15:22)
--- NOTE | 2025-01-02 16:54 | PC.PT ---
Patient has dc orders to go home. Patient is approached at 1500. Patient educated about the short term rehab if patient has difficulty in ambulation, patient adamantly refused stating he will go home. This PT can recommend homehealth PT if patient is unstable to ambulate, Patient states no. He needs to clean the house as he has cats and he doesn't want any homehealth staff come and visit him for now. Patient educated, if he changed his mind and needs homehealth to have a referral from his PCP. This PT mentioned all of the above mentioned information 3x to the patient so as to make sure he understands. Patient verbalized understanding. He said all he need is a walker and he just bought a walker so he will be fine. Will cancel PT evaluation. RN made aware.
--- NOTE | 2025-01-02 18:07 | PC.NURSE ---
PATIENT STATED BROTHER WOULD PICK HIM UP AFTER BROTHER GOT OUT OF WORK, CURRENTLY PATIENTS BROTHER HAS NOT ANSWERED PHONE CALL, CALLED [facility], WHICH THEY SAY THEY HAVE NO DUCTFIXING PLUMBER FOR TONIGHT, PATIENT WILL CALL BROTHER AGAIN.
--- NOTE | 2025-01-02 19:14 | PC.NURSE ---
PATIENT REFUSED SHEEP FARM MANAGER AWARE.
[2025-01-02] MEDS: DEXTROSE 50%-WATER INJ 50 ML SYRINGE 25 ML IV (19:30)
[2025-01-02] MEDS: DEXTROSE 5%-WATER 1,000 ML 30 ML IV (21:01)
[2025-01-02] MEDS: DEXTROSE 50%-WATER INJ 50 ML SYRINGE 100 ML IV (21:01)
--- NOTE | 2025-01-02 21:52 | PC.NURSE ---
Pt's heart rhythm is A-fib per environmental monitoring technician with a HR of 105. Pt asymptomatic. Dr. Prieto was notified. aware of EKG results yesterday. No new orders at this time.Will continue to monitor.
[2025-01-02] MEDS: Magnesium Sulfate 2 GM Ivpb 2 GM/50 ML BAG IV (22:38)
[2025-01-02 23:16] LABS: Magnesium 1.7 mg/dL (1.6-2.6); Phosphorous 2.4 mg/dL (2.4-5.1); Potassium 3.8 mMol/L (3.4-5.1)
[2025-01-03] VITALS (7 sets, daily range): BP systolic 90–123; BP diastolic 50–75; PULSE 62–92; RESP 16–24; TEMP 36.7–37.2; O2SAT 91–98; BMI 38.6
[2025-01-03] MEDS: LEVOTHYROXINE SODIUM 112 MCG TABLET PO (05:58)
[2025-01-03 06:05] LABS: Magnesium 1.8 mg/dL (1.6-2.6); Vancomycin,Random 11.7 mcg/mL
[2025-01-03 06:09] LABS: Glucose Estimated Average 97 mg/dL (80-131)
[2025-01-03] MEDS: DiphenhydrAMINE 25 MG CAPSULE PO ×3 (06:42→17:33)
[2025-01-03 08:13] LABS: Basophils % (Auto) 0 % (0-2.5); Eosinophils # (Auto) 0.2 Thou/mm3 (0.0-0.5); Eosinophils % (Auto) 3 % (0-10); Hematocrit 23.6 % (41.0-53.0); Immature Granulocytes % (Auto) 1 % (0-0); Immature Granulocytes Auto 0.06 Thou/mm3 (0.00-0.00); Lymphocytes # (Auto) 0.2 Thou/mm3 (1.0-4.8); Lymphocytes % (Auto) 5 % (10-50); Mean Corpuscular HGB Conc 34.7 g/dl (31.0-37.0); Mean Corpuscular Hemoglobin 31.2 pg (25.0-35.0); Mean Corpuscular Volume 90 fL (80-100); Monocytes # (Auto) 0.2 Thou/mm3 (0.0-0.8); Monocytes % (Auto) 4 % (0-12); Neutrophils % (Auto) 86 % (37-80); Nucleated Red Blood Cell % 0 /100 WBC (0); RDW Standard Deviation 54.9 fL (35.1-43.9); Red Blood Count 2.63 Miln/mm3 (4.50-5.90); White Blood Count 4.7 Thou/mm3 (3.8-10.6)
[2025-01-03 08:20] LABS: Alanine Aminotransferase 115 U/L (10-49); Albumin, Serum 2.8 gm/dL (3.5-5.0); Albumin/Globulin Ratio 1.1 (1.2-2.2); Alkaline Phosphatase 556 U/L (46-116); Anion Gap 11 (7-16); Aspartate Amino Transferase 128 U/L (0-34); BUN/Creatinine Ratio 6 Ratio (12-20); Bilirubin,Total 2.9 mg/dL (0.3-1.2); Blood Urea Nitrogen 35 mg/dL (9-23); Calcium 8.8 mg/dL (8.3-10.6); Calcium (Corrected) 9.8 mg/dL (8.5-10.1); Carbon Dioxide 27.5 mMol/L (20.0-31.0); Chloride 97 mMol/L (98-107); Creatinine (Component) 5.4 mg/dL (0.6-1.3); Estimated Creatinine Clearance 21.9 mL/min (>60); Globulin 2.6 gm/dL (2.3-3.5); Glucose 106 mg/dL (74-106); Osmolality,Calculated 278 (275-295); Potassium 3.6 mMol/L (3.4-5.1); Sodium 135 mMol/L (136-145); Total Protein 5.4 gm/dL (5.7-8.2); eGFR 12 See Note
[2025-01-03 08:45] LABS: Hemoglobin 8.2 g/dL (13.5-16.0); Platelet Count 47 Thou/mm3 (140-440)
[2025-01-03] MEDS: VIT B12/Vit C/FA (Nephrovite) TABLET 1 TAB PO (08:49)
--- NOTE | 2025-01-03 09:09 | EKG_ITS ---
[facility] Test Date: 2025-01-03 Pat Name: ERICK WARNER Department: Room: S352A Gender: Male Software Quality Automation Engineer: ERIKA : [id number] Requested By: Dax Gallo Order Number: [id number] Reading MD: Dax Gallo Measurements Intervals [place] Rate: 74 P: 25 NC: 256 QRS: 20 QRSD: 133 T: 80 QT: 420 QTc: 468 Interpretive Statements SINUS RHYTHM WITH FIRST DEGREE AV BLOCK WITH FREQUENT SUPRAVENTRICULAR PREMATURE COMPLEXES IN A BIGEMINAL PATTERN INTRAVENTRICULAR CONDUCTION DELAY Compared to ECG 01/01/2025 19:43:08 First degree AV block now present Intraventricular conduction delay now present Atrial fibrillation no longer present Ventricular premature complex(es) no longer present Aberrant conduction of supraventricular beat(s) no longer present Myocardial infarct finding no longer present /[id number]
--- NOTE | 2025-01-03 09:21 | ESPR_ITS ---
Documentation for date of: 01/03/25 Subjective Subjective Interval history: Mr. Weaver is a 59-year-old male with a known history of ESRD on hemodialysis (HD) thrice weekly (Thursday/Thursday/Thursday), under the care of Dr. Cotton for the past 11 years. He presented to the ED with generalized weakness and worsening of a chronic left lower extremity ulcer, which has been present for approximately 2.5 years. He reports being at baseline until 3 days ago, when he began experiencing generalized weakness without associated fever, nausea, or vomiting. He endorses that he scratched his left leg, which led to an ulcerative lesion at the site. The patient states he has been intermittently seen by wound care and has been managing the wound at home with antiseptics. He also reports chronic venous stasis for over 8 years with progressive worsening of the ulcer over the past 2 years. He previously attempted evaluation for renal transplantation but was not listed due to elevated body weight. The patient missed his most recent dialysis session scheduled for 12/30/2024 due to worsening weakness. His last dialysis session was on 12/28/2024. Initial vitals: BP 104/52 mmHg, HR 78 bpm, RR 20/min, Temp 98.2?F, SpO? 100% on room air Laboratory results: Sodium 134, potassium 4.4, chloride 94, BUN 46, creatinine 8.1, EGFR 7, TIBC 99, iron saturation 71, CRP 13.3, Pro-Calc 2.17, WBC 4.3, Hgb 7.0, PLT 58. Cultures are pending, currently on DILAUDID and ZOSYN. PMHx: ESRD on HD, hypothyroidism, chronic venous stasis, chronic anemia PSHx: Left upper extremity AV fistula placement MEDS: Pending med rec no need for any surgical intervention. Patient wants to follow-up with wound care center. ALLERGIES: Adhesive tape FHx: Not significant SH: Denies tobacco, alcohol or drug use Nephrology was consulted for inpatient hemodialysis. 01/01/2025 patient currently seen in medical floor. Resting comfortably. Still having significant discomfort in the lower extremities. He has a huge ulcers on the left leg. Seen by surgeon-if he is not discharged-he will need dialysis tomorrow. 01/02/2025 examined at bedside. Complaining of lower extremity pain. Bilaterally skin desquamation improved with wound care. CT showed osteomyelitis of the left lower extremity, surgery on board, pending ID recommendation. Advised against central line, contraindicated with HD. Can do ABX thru HD cath. 01/03/2025 Examined at bedside. Reports no new or worsening of symptoms. CR 5.4, BUN 35, EGFR 12. Will do 6 weeks of IV ROCEPHIN and VANCO with HD per ID recs. Complained of recurrent hypoglycemia episodes, recommended DIAZOXIDE PRN on d/c. Exam Vital Signs Temp Pulse Resp BP Pulse Ox O2 Del Method O2 Flow Rate 98.9 F 81 20 90/55 L 94 L Room Air 2 01/03/25 08:00 01/03/25 08:00 01/03/25 08:00 01/03/25 08:00 01/03/25 08:00 01/03/25 08:00 01/02/25 12:38 Narrative Exam General: Awake. HEENT: Normocephalic, atraumatic, mucous membranes moist. Heart: Regular rate and rhythm, no murmurs. Lungs: Clear to auscultation with no wheezing or crackles. Abdomen: Soft, nondistended, nontender, positive bowel sounds. ?No guarding or rebound tenderness. Neurologic: Alert and oriented x3, no gross neurological deficit, and patient able to move all 4 extremities. Extremities: Bilateral chronic venous stasis. Chronic ulcer with necrotic patch of approximately 5 x 10 x 7 cm noted on the anterior expected of left lower leg, ulceration noted on the lateral side of the leg, induration noted in the entire left lower extremity. Skin: No rash or ecchymoses. Objective Labs 01/04/25 09:32 01/04/25 09:33 Labs: Laboratory Results - last 24 hr 01/02/25 01/02/25 01/03/25 07:52 22:24 04:39 WBC 4.7 RBC 2.63 L Hgb 8.2 L Hct 23.6 L MCV 90 MCH 31.2 MCHC 34.7 RDW Std Deviation 54.9 H Plt Count 47 L Neut % (Auto) 86 H Lymph % (Auto) 5 L [place] % (Auto) 4 Eos % (Auto) 3 Baso % (Auto) 0 Neut # (Auto) 4.0 Lymph # (Auto) 0.2 L [place] # (Auto) 0.2 Eos # (Auto) 0.2 Baso # (Auto) 0.0 Immature Gran # (Auto) 0.06 H Absolute Nucleated RBC 0.00 Immature Gran % 1 H Nucleated RBC % 0 Sodium 135 L Potassium 3.8 3.6 Chloride 97 L Carbon Dioxide 27.5 Anion Gap 11 BUN 35 H Creatinine 5.4 H* D Estim Creat Clear Calc 21.9 L eGFR 12 L* BUN/Creatinine Ratio 6 L Glucose [address] Glu mg/dL 97 Hemoglobin A1c 5.0 Calculated Osmolality 278 Calcium 8.8 Corrected Calcium 9.8 Phosphorus 2.4 Magnesium 1.7 1.8 Total Bilirubin 2.9 H D AST 128 H ALT 115 H Alkaline Phosphatase 556 H D Total Protein 5.4 L Albumin 2.8 L Globulin 2.6 Albumin/Globulin Ratio 1.1 L Random Vancomycin 11.7 Blood Type O Positive Antibody Screen POSITIVE Antibody Identification Cold Antibody Crossmatch See Detail Blood Bank Wristband ID Yes Quality Measures Quality Measures none Assessment & Plan Assessment Current Active Medications: Generic Name Dose Route Start Last Admin Trade Name Freq PRN Reason Stop Dose Admin Acetaminophen 650 mg 12/31/24 09:07 Acetaminophen 325 Mg Tablet PO 01/29/25 18:29 Q6H PRN Fever >100.3 Dextrose 25 ml 12/31/24 02:53 Dextrose 50%-Water Inj 50 Ml Syringe IV 01/30/25 02:52 Q15MIN PRN BG 50-70 responsive npo pt Dextrose 50 ml 12/31/24 02:53 Dextrose 50%-Water Inj 50 Ml Syringe IV 01/30/25 02:52 Q15MIN PRN BG <50 OR BG <70 & pt unresponsive Diphenhydramine HCl 25 mg 01/01/25 10:59 01/03/25 06:42 Diphenhydramine 25 Mg Capsule PO 01/31/25 10:58 25 mg Q6HR PRN Administration ITCHING Glucagon 1 mg 12/31/24 02:53 Glucagon Inj 1 Mg Vial IM Q15MIN PRN BG <70, and no IV access Hydromorphone HCl 1 mg 12/30/24 18:30 Hydromorphone Inj 2 Mg/Ml Vial IVP 01/04/25 18:29 Q4H PRN Pain 7 - 10 Albumin Human 25 gm in 100 mls @ 100 mls/hr 12/31/24 09:36 01/02/25 11:02 Albuminar-25 Ivpb IV 01/03/25 09:35 Infused PRN PRN Infusion DIALYSIS Dextrose 1,000 mls @ 30 mls/hr 01/02/25 21:00 01/02/25 21:01 D5w IV 02/01/25 20:59 30 mls/hr .Q24H MARIANO Administration Vancomycin/Sodium Chloride 200 mls @ 120 mls/hr 01/03/25 10:00 Vancomycin/Ns 1 Gm Ivpb IV 01/03/25 11:39 X1 ONE Levothyroxine Sodium 112 mcg 12/31/24 06:00 01/03/25 05:58 Levothyroxine Sodium 112 Mcg Tablet PO 01/30/25 05:59 112 mcg ACBR MARIANO Administration Ondansetron HCl 4 mg 12/30/24 18:30 Ondansetron Inj 2 Mg/Ml Inj 2 Ml IV 01/29/25 18:29 Q6H PRN NAUSEA OR VOMITING Protocol Pharmacy Consult 1 each 12/31/24 09:00 Vancomycin Pharmacy To Dose 1 Each Each IV 01/30/25 08:59 QDAY PRN PROTOCOL Vitamin B Complex/Vit C/Folic Acid 1 tab 12/31/24 09:00 01/03/25 08:49 Vit B12/Vit C/Fa (Nephrovite) Tablet PO 01/30/25 08:59 1 tab QDAY MARIANO Administration Plan 59-year-old male with PMHx of ESRD HD MWF, hypothyroidism, chronic left lower extremity ulcer, chronic anemia, recurrent GI bleed and biweekly transfusions, presenting with worsening left extremity pain. Admitted for cellulitis of left lower extremity with laceration. Continue HD MWF. Will do 6 weeks ROCEPHIN + VANCO with HD per ID recs. ESRD HD MWF Anemia of chronic disease Recurrent blood transfusions History of ESRD. Has recurrent GI bleed with biweekly blood transfusions--patient under the care of Dr. Azar and Dr. Ervin from [facility] did receive 2 units of packed red blood cells and Epogen yesterday with dialysis ? Continue HD MWF ? ABX with HD ? Daily labs Left lower extremity osteomyelitis, cellulitis superimposed on Chronic Left lower extremity ulcer with eschar-no need for surgical intervention per surgeon Bilateral chronic venous stasis. Chronic anemia, likely secondary to ESRD, in setting of chronic leg ulcers. Chronic Thrombocytopenia, secondary to ESRD. Hypothyroidism. ? Managed by primary team Thank you for the opportunity to participate in the patient's care. Case was discussed with attending, Dr. Cotton. Sherine Hinds DO PGYI Attending Provider Attestation/Addendum Patient seen and examined with resident physician Dr. Basurto. Note reviewed, agree with findings and recommendations. Admitted with weakness, significant in left leg ulcers with oozing Patient with osteomyelitis of the left leg. Will need antibiotics for 6 weeks will be given at the dialysis. Next dialysis scheduled for tomorrow
--- NOTE | 2025-01-03 09:30 | ESCONSULT_ITS ---
RE: ERICK WARNER : 1965 DATE OF CONSULTATION: 01/02/2025 REFERRING PHYSICIAN: Farrah Aviles MD and Shad Cotton MD REASON FOR CONSULTATION: Osteomyelitis of the left tibia. HISTORY OF PRESENT ILLNESS: The patient is an unfortunate 59-year-old man who reports he has been on dialysis for several years following a case of severe infection in his left leg. He was unable to offer any further significant history. PAST MEDICAL HISTORY: His medical problems include hypothyroidism and chronic kidney disease for which he is receiving dialysis treatments. He has left arm fistula in place and in use and probably had dialysis catheters before. ALLERGIES: ALLERGIC TO TAPE. NO MEDICATION ALLERGIES. IMMUNIZATIONS: Unavailable. FAMILY HISTORY: Positive for a brother who had been on dialysis about 10 years before and then passed on. SOCIAL HISTORY: He lives with some cats. He is otherwise alone. He denies use of tobacco, alcohol, or drugs. PHYSICAL EXAMINATION: His left leg is a bit swollen. Photos are noted. There is possible osteomyelitis of the left tibial region noted on imaging. Blood cultures are negative. He has been afebrile. ASSESSMENT: 1. Presumptive osteomyelitis of the left leg by imaging. 2. Chronic swelling of the left leg. 3. Hypothyroidism. RECOMMENDATIONS: The patient probably should get vancomycin with his dialysis. Vancomycin could be given at the pharmacy dose. Dialysis is usually given 3x/wk and he should have a weekly CBC, renal panel, and esr while on intravenous treatment. He probably needs the access for the dialysis, so I would not remove it for now. He has his left arm arteriovenous fistula. There is no inherent pressure to remove it for now. Six weeks of treatment is recommended from initiation, which is probably on the date of admission or soon thereafter so from [facility] through 02/17. I will see him again as needed. He can finish treatment on dialysis. DT: 10:28:21 TT: 11:05:00 Ref: [id number] - TID: [id number] MTDD
[2025-01-03 09:41] LABS: Slide Review Platelets confirmed
[2025-01-03] MEDS: VANCOMYCIN/NS 1 GM IVPB 200 ML IV (10:09)
--- NOTE | 2025-01-03 13:06 | XR_ITS ---
Examination: Abdomen sonogram, complete Date and time of exam: January 03, 2025 1751 hrs. Indications: Chronic kidney disease diagnosis 10 years ago, elevated liver function tests on laboratory examination today. Technique: Multiple real-time grayscale transabdominal sonographic images of the abdomen have been obtained. Findings: Cholelithiasis, gallbladder wall 0.3 cm no edema Common bile duct 0.4 cm Pancreas obscured by bowel gas Aorta obscured by bowel gas Liver 17.8 cm fatty infiltration of liver lesions Normal hepatopedal portal venous flow Patent IVC Right kidney 12.9 cm cortex 1.1 cm Left kidney 13.0 cm negative cortex both measure Spleen 18.5 cm Impression: Cholelithiasis, negative for cholecystitis Hepatosplenomegaly
--- NOTE | 2025-01-03 15:45 | ESPR_ITS ---
Documentation for date of: 01/03/25 Subjective Subjective Interval history: Patient is seen and examined at bedside Overnight patient was found to have mild hypoglycemia with blood sugars around 60 for which the discharge was held. Vitals are stable. Labs done this morning showed hyperbilirubinemia and transaminitis Ultrasound abdomen was ordered, will follow-up with the results Patient was found to have a second-degree AV block on EKG Patient is also complaining of rash, papular on the lower extremities and back which is itchy-started on Benadryl Exam Vital Signs Temp Pulse Resp BP Pulse Ox O2 Del Method O2 Flow Rate 98.5 F 72 19 123/53 L 95 Room Air 2 01/03/25 12:00 01/03/25 12:00 01/03/25 12:00 01/03/25 12:00 01/03/25 12:01/03/25 12:01/02/25 12:38 Narrative Exam General: Awake. HEENT: Normocephalic, atraumatic, mucous membranes moist. Heart: Regular rate and rhythm, no murmurs. Lungs: Clear to auscultation with no wheezing or crackles. Abdomen: Soft, nondistended, nontender, positive bowel sounds. ?No guarding or rebound tenderness. Neurologic: Alert and oriented x3, no gross neurological deficit, and patient able to move all 4 extremities. Extremities: Bilateral chronic venous stasis. Chronic ulcer with necrotic patch of approximately 5 x 10 x 7 cm noted on the anterior expected of left lower leg, ulceration noted on the lateral side of the leg, induration noted in the entire left lower extremity. AV fistula on left upper extremity Skin: Diffuse papular rash with itching was noted on lower extremities and back Objective Labs 01/03/25 04:39 01/03/25 04:39 Labs: Laboratory Results - last 24 hr 01/02/25 01/03/25 22:24 04:39 WBC 4.7 RBC 2.63 L Hgb 8.2 L Hct 23.6 L MCV 90 MCH 31.2 MCHC 34.7 RDW Std Deviation 54.9 H Plt Count 47 L Neut % (Auto) 86 H Lymph % (Auto) 5 L [place] % (Auto) 4 Eos % (Auto) 3 Baso % (Auto) 0 Neut # (Auto) 4.0 Lymph # (Auto) 0.2 L [place] # (Auto) 0.2 Eos # (Auto) 0.2 Baso # (Auto) 0.0 Immature Gran # (Auto) 0.06 H Absolute Nucleated RBC 0.00 Immature Gran % 1 H Nucleated RBC % 0 Sodium 135 L Potassium 3.8 3.6 Chloride 97 L Carbon Dioxide 27.5 Anion Gap 11 BUN 35 H Creatinine 5.4 H* D Estim Creat Clear Calc 21.9 L eGFR 12 L* BUN/Creatinine Ratio 6 L Glucose [address] Glu mg/dL 97 Hemoglobin A1c 5.0 Calculated Osmolality 278 Calcium 8.8 Corrected Calcium 9.8 Phosphorus 2.4 Magnesium 1.7 1.8 Total Bilirubin 2.9 H D AST 128 H ALT 115 H Alkaline Phosphatase 556 H D Total Protein 5.4 L Albumin 2.8 L Globulin 2.6 Albumin/Globulin Ratio 1.1 L Random Vancomycin 11.7 Misc Test Result Platelets confirmed Quality Measures Quality Measures none Assessment & Plan Assessment Current Active Medications: Generic Name Dose Route Start Last Admin Trade Name Freq PRN Reason Stop Dose Admin Acetaminophen 650 mg 12/31/24 09:07 Acetaminophen 325 Mg Tablet PO 01/29/25 18:29 Q6H PRN Fever >100.3 Dextrose 25 ml 12/31/24 02:53 Dextrose 50%-Water Inj 50 Ml Syringe IV 01/30/25 02:52 Q15MIN PRN BG 50-70 responsive npo pt Dextrose 50 ml 12/31/24 02:53 Dextrose 50%-Water Inj 50 Ml Syringe IV 01/30/25 02:52 Q15MIN PRN BG <50 OR BG <70 & pt unresponsive Diphenhydramine HCl 25 mg 01/01/25 10:59 01/03/25 14:41 Diphenhydramine 25 Mg Capsule PO 01/31/25 10:58 25 mg Q6HR PRN Administration ITCHING Glucagon 1 mg 12/31/24 02:53 Glucagon Inj 1 Mg Vial IM Q15MIN PRN BG <70, and no IV access Hydromorphone HCl 1 mg 12/30/24 18:30 Hydromorphone Inj 2 Mg/Ml Vial IVP 01/04/25 18:29 Q4H PRN Pain 7 - 10 Dextrose 1,000 mls @ 30 mls/hr 01/02/25 21:00 01/02/25 21:01 D5w IV 02/01/25 20:59 30 mls/hr .Q24H MARIANO Administration Levothyroxine Sodium 112 mcg 12/31/24 06:00 01/03/25 05:58 Levothyroxine Sodium 112 Mcg Tablet PO 01/30/25 05:59 112 mcg ACBR MARIANO Administration Ondansetron HCl 4 mg 12/30/24 18:30 Ondansetron Inj 2 Mg/Ml Inj 2 Ml IV 01/29/25 18:29 Q6H PRN NAUSEA OR VOMITING Protocol Pharmacy Consult 1 each 12/31/24 09:00 Vancomycin Pharmacy To Dose 1 Each Each IV 01/30/25 08:59 QDAY PRN PROTOCOL Vitamin B Complex/Vit C/Folic Acid 1 tab 12/31/24 09:00 01/03/25 08:49 Vit B12/Vit C/Fa (Nephrovite) Tablet PO 01/30/25 08:59 1 tab QDAY MARIANO Administration Plan A 59-year-old male with significant past medical history of hypothyroidism, chronic left lower extremity ulcer with dermatitis, ESRD on HD [M/W/F] since [address] Cotton, bilateral chronic venous stasis, chronic anemia since 2 years on PRBC transfusion once in every 2 weeks presented to the hospital with chief complaints of generalized weakness, worsening of chronic ulcer on left lower extremity since 3 days and admitted for left lower extremity cellulitis with chronic ulcer # Hyperbilirubinemia # Transaminitis - Patient's LFTs within normal limits during the hospital admission - Patient was found to have hypoglycemia yesterday night around blood glucose of 60 for which discharge was held - Labs during this morning showed total bilirubin of 2.9, AST 128, ALT 115, ALP 556 - Ultrasound abdomen is ordered, will follow-up with results # Chronic osteomyelitis of left lower extremity # Left lower extremity cellulitis superimposed on # chronic Left lower extremity ulcer. # Bilateral chronic venous stasis. -Patient had history of lower extremity infection 11 years ago following which patient ended up on dialysis due to severe cellulitis. -Patient endorsed that later the infection resolved leaving chronic venous stasis. -Reported that since 2 years, patient had chronic dermatitis with left lower extremity ulcer and is following wound care on and off. -Vitals are stable at the time of admission. -Labs showed WBC 5.9, Hb 6.9, platelets 85, sodium 132, chloride 93, BUN 38, creatinine 7.2, lactate 1.9, procalcitonin 2.17. -Consulted general surgery Dr Lozano, appreciate recommendations. Plan: -Started on ceftriaxone and vancomycin [12/30- -Referral to wound care done. -IV Dilaudid as needed for pain. -CT of left lower extremity without contrast is done that showed mild chronic osteomyelitis of anterior tibial shaft - Dr Melissa was consulted and he recommended to continue antibiotics for osteomyelitis for 6 weeks and patient can get antibiotics during his dialysis sessions - Informed Dr. Cotton about the antibiotics for 6 weeks, till 11 Feb 2025 # Second-degree AV block - EKG showed second-degree AV block - Potassium and magnesium are within normal limits # ESRD on HD [M/W/F]. -Patient is on hemodialysis since 11 years. -Patient had AV fistula on left upper extremity. -Patient is still able to make some amount of urine. -Patient reported that he was trying to get onto transplant list, he was rejected once as he is having overweight. -Patient missed dialysis on 12/30/2024 due to generalized weakness and got admitted into the hospital. Plan: -Dr. Cotton is consulted, will appreciate her recommendations. -HD as per his routine dialysis schedule -Nephro-Martín. -Avoid nephrotoxic and renally dose medications. # Chronic anemia, likely secondary to ESRD, in setting of chronic leg ulcers. # Chronic Thrombocytopenia, secondary to ESRD. -Patient reported that he is having anemia since 2 years and receiving blood transfusions once in every 2 weeks in the ED. -Bone marrow biopsy was done and it did not show any significant pathology due to inadequate sample. Plan: - PRBC transfusion(4 total since admission). - Posttransfusion H&H. - No evidence of bleeding. # Hypothyroidism. -Patient is using 112 mcg of levothyroxine. Plan: -Resume his home levothyroxine. Hospital Maintenance: Dispo: MedSurg. DVT ppx: Held for now in view of anemia and thrombocytopenia. GI ppx: Not needed as of now. Diet: Renal. IV lines: Peripheral. Code status: Full code. Patient plan of care was discussed with the attending physician, Dr. Stefan Gallo, PGY1 Attending Provider Attestation/Addendum I attest that I was physically present for the evaluation, physical examination, lab and imaging review of the patient with the residents. I discussed the case with the residents and agree with the findings and plans of care as documented above. Patient was planned for discharge yesterday but found to have arrhythmia on quality assurance monitor chassis.? An EKG, he appears to have second-degree heart block.? Denies any chest pain, chest tightness or palpitations.? Repeat EKG demonstrated the same as well.? We will obtain cardiology consult.? Farrah Aviles MD
--- NOTE | 2025-01-03 18:56 | PD.RESCONSUL ---
HPI Data of Consult Requesting Physician: Farrah Aviles MD Admitting Provider: Farrah Aviles MD Attending Provider: Farrah Aviles MD Primary Care Provider: Shad Cotton MD Consult Narrative History of present illness: Sincere Weaver is a 59-year-old male with a past medical history of hypothyroidism, chronic left lower extremity dermatitis, ESRD on HD (M/W/F) following Dr. Cotton, chronic anemia secondary to CKD who presented on 12/30 for generalized weakness and worsening of his left lower extremity ulceration for 3 days. He was apparently at his baseline 3 days prior to presentation and developed generalized weakness after scratching his LLE with development of ulceration. Patient reported that he is following with wound care on and off since 2.5 years and also takes care of his wounds himself by applying antiseptic and cleans it on a regular basis. During hospitalization, general surgery was consulted, who stated that there were no surgical interventions indicated and will require local wound care and continue to follow-up with wound clinic. CT of the left lower extremity also showed chronic osteomyelitis of the anterior tibial shaft for which he is to continue IV antibiotics for 6 weeks. He was planned for discharge but was found to be hypoglycemic and repeat EKG showed bigeminy with PACs vs MAT vs 2nd degree heart block for which cardiology was consulted. cc:: cc: Farrah Aviles MD Review of Systems Review of Systems Systems Reviewed: All systems reviewed, normal except as documented Exam Vital Signs Temp Pulse Resp BP Pulse Ox O2 Del Method O2 Flow Rate 98.8 F 74 18 115/60 94 L Room Air 2 01/03/25 16:01/03/25 16:01/03/25 16:01/03/25 16:01/03/25 16:01/03/25 16:01/02/25 12:38 Narrative Exam General: AOx3, no acute distress, disheveled, able to speak full sentences HEENT: NC/AT, mucous membranes moist, bilateral sclera anicteric Cardiovascular: regular rate and rhythm, S1/S2 present, no murmurs appreciated Pulmonary: clear to auscultation bilaterally, no rales/rhonchi/wheezes Abdominal: soft, non-tender, non-distended, no rebound/guarding, normal bowel sounds present Musculoskeletal: LLE bandaged and more swollen than RLE Skin: bilateral chronic venous stasis, AV fistula in LUE Neuro: CN II-XII intact, no focal deficits Results Labs 01/07/25 05:27 01/07/25 05:27 Labs: Short CBC 01/03/25 Range/Units 04:39 WBC 4.7 (3.8-10.6) Thou/mm3 Hgb 8.2 L (13.5-16.0) g/dL Hct 23.6 L (41.0-53.0) % Plt Count 47 L (140-440) Thou/mm3 BMP 01/02/25 01/03/25 22:24 04:39 Sodium 135 L Potassium 3.8 3.6 Chloride 97 L Carbon Dioxide 27.5 BUN 35 H Creatinine 5.4 H* D Glucose 106 Calcium 8.8 Liver Function 01/03/25 Range/Units 04:39 Total Bilirubin 2.9 H D (0.3-1.2) mg/dL AST 128 H (0-34) U/L ALT 115 H (10-49) U/L Alkaline Phosphatase 556 H D (46-116) U/L Albumin 2.8 L (3.5-5.0) gm/dL Quality Measures Quality Measures none Medications Home Medications and Allergies Home Medications ?Medication ?Instructions ?Recorded ?Confirmed ?Type diphenhydramine HCl 25 mg capsule 25 mg PO TID PRN Itching 08/20/22 03/31/24 History (Benadryl) vitamin B comp no.3-folic acid 1 1 tab PO QDAY 08/20/22 03/31/24 History mg-vit C 60 mg-biotin 300 mcg tablet ([facility]) sucroferric oxyhydroxide 500 mg 500 mg PO QID 10/03/22 03/31/24 History chewable tablet (Velphoro) carvedilol 12.5 mg tablet 12.5 mg PO BID 08/04/23 03/31/24 History furosemide 40 mg tablet 40 mg PO QDAY 08/04/23 03/31/24 History levothyroxine 100 mcg tablet 112 mcg PO DAILY 08/04/23 03/31/24 History Allergies Allergy/AdvReac Type Severity Reaction Status Date / Time adhesive tape Allergy Severe Rash Verified 12/08/24 17:07 Visit Medications Acetaminophen (Acetaminophen 325 Mg Tablet) 650 mg PO Q6H PRN PRN Reason: Fever >100.3 Stop: 01/29/25 18:29 Dextrose (Dextrose 50%-Water Inj 50 Ml Syringe) 25 ml IV Q15MIN PRN PRN Reason: BG 50-70 responsive npo pt Stop: 01/30/25 02:52 Dextrose (Dextrose 50%-Water Inj 50 Ml Syringe) 50 ml IV Q15MIN PRN PRN Reason: BG <50 OR BG <70 & pt unresponsive Stop: 01/30/25 02:52 Diphenhydramine HCl (Diphenhydramine 25 Mg Capsule) 25 mg PO Q6HR PRN PRN Reason: ITCHING Stop: 01/31/25 10:58 Last Admin: 01/03/25 14:41 Dose: 25 mg Glucagon (Glucagon Inj 1 Mg Vial) 1 mg IM Q15MIN PRN PRN Reason: BG <70, and no IV access Hydromorphone HCl (Hydromorphone Inj 2 Mg/Ml Vial) 1 mg IVP Q4H PRN PRN Reason: Pain 7 - 10 Stop: 01/04/25 18:29 Dextrose (D5w) 1,000 mls @ 30 mls/hr IV .Q24H MARIANO Stop: 02/01/25 20:59 Last Admin: 01/02/25 21:01 Dose: 30 mls/hr Ceftriaxone Sodium/Dextrose (Rocephin/D5w 2gm) 2 gm in 50 mls @ 100 mls/hr IV X1 ONE Stop: 01/04/25 17:29 Levothyroxine Sodium (Levothyroxine Sodium 112 Mcg Tablet) 112 mcg PO ACBR MARIANO Stop: 01/30/25 05:59 Last Admin: 01/03/25 05:58 Dose: 112 mcg Ondansetron HCl (Ondansetron Inj 2 Mg/Ml Inj 2 Ml) 4 mg IV Q6H PRN; Protocol PRN Reason: NAUSEA OR VOMITING Stop: 01/29/25 18:29 Pharmacy Consult (Vancomycin Pharmacy To Dose 1 Each Each) 1 each IV QDAY PRN PRN Reason: PROTOCOL Stop: 01/30/25 08:59 Vitamin B Complex/Vit C/Folic Acid (Vit B12/Vit C/Fa (Nephrovite) Tablet) 1 tab PO QDAY MARIANO Stop: 01/30/25 08:59 Last Admin: 01/03/25 08:49 Dose: 1 tab Discontinued Medications Acetaminophen (Acetaminophen 325 Mg Tablet) 650 mg PO Q6H PRN PRN Reason: Fever >101.5 Stop: 01/29/25 18:29 Last Admin: 12/31/24 07:19 Dose: 650 mg Dexamethasone Sodium Phosphate (Dexamethasone Sod Phos Inj 10 Mg/Ml Vial) 6 mg IV X1 ONE Stop: 12/31/24 02:49 Last Admin: 12/31/24 03:09 Dose: 6 mg Dextrose (Dextrose 50%-Water Inj 50 Ml Syringe) 25 ml IV X1 ONE Stop: 01/02/25 19:17 Last Admin: 01/02/25 19:30 Dose: 25 ml Dextrose (Dextrose 50%-Water Inj 50 Ml Syringe) 50 ml IV X1 ONE Stop: 01/02/25 20:45 Dextrose (Dextrose 50%-Water Inj 50 Ml Syringe) 100 ml IV X1 ONE Stop: 01/02/25 20:45 Last Admin: 01/02/25 21:01 Dose: 100 ml Diphenhydramine HCl (Diphenhydramine 25 Mg Capsule) 25 mg PO X1 ONE Stop: 12/31/24 02:48 Last Admin: 12/31/24 03:09 Dose: 25 mg Diphenhydramine HCl (Diphenhydramine 25 Mg Capsule) 25 mg PO X1 ONE Stop: 01/02/25 14:56 Last Admin: 01/02/25 15:22 Dose: 25 mg Diphenhydramine HCl (Diphenhydramine 25 Mg Capsule) 25 mg PO X1 ONE Stop: 01/03/25 16:44 Last Admin: 01/03/25 17:33 Dose: 25 mg Epoetin Leonard (Epoetin Leonard-Epbx Inj 10,000 Unit/Ml Vial (Esrd)) 10,000 unit SC X1 ONE Stop: 12/31/24 10:31 Last Admin: 12/31/24 18:55 Dose: 10,000 unit Epoetin Leonard (Epoetin Leonard Inj 1,000 Unit/0.05 Ml Unit) 10,000 unit SC X1 ONE Stop: 12/31/24 18:46 Last Admin: 12/31/24 19:00 Dose: 10,000 unit Heparin Sodium (Porcine) (Heparin Sod Inj 5000 Unit/Ml Vial) 5,000 unit SC Q12HR MARIANO Stop: 01/13/25 21:59 Hydromorphone HCl (Hydromorphone Inj 2 Mg/Ml Vial) 1 mg IVP X1 ONE Stop: 12/30/24 18:25 Last Admin: 12/30/24 19:00 Dose: 1 mg Piperacillin/Tazobactam/Dextrose (Zosyn) 3.375 gm in 50 mls @ 100 mls/hr IV X1 ONE Stop: 12/30/24 18:12 Last Infusion: 12/30/24 19:29 Dose: Infused Vancomycin HCl (Vancomycin/Water 1gm Ivpb) 200 mls @ 120 mls/hr IV X1 ONE Stop: 12/30/24 20:16 Last Admin: 12/30/24 19:02 Dose: Not Given Ceftriaxone Sodium/Dextrose (Rocephin/D5w 1gm Iv Premix) 1 gm in 50 mls @ 100 mls/hr IV QDAY@1400 [facility] Stop: 01/06/25 18:37 Last Admin: 01/02/25 14:45 Dose: 100 mls/hr Vancomycin/Sodium Chloride (Vancomycin/Ns 1 Gm Ivpb) 200 mls @ 120 mls/hr IV X1 ONE Stop: 12/30/24 20:24 Last Admin: 12/30/24 21:30 Dose: 120 mls/hr Vancomycin HCl (Vancomycin/Water 1250 Mg Ivpb) 250 mls @ 120 mls/hr IV X1 ONE Stop: 12/31/24 18:04 Last Infusion: 12/31/24 18:57 Dose: Infused Albumin Human (Albuminar-25 Ivpb) 25 gm in 100 mls @ 100 mls/hr IV PRN PRN PRN Reason: DIALYSIS Stop: 01/03/25 09:35 Last Infusion: 01/02/25 11:02 Dose: Infused Magnesium Sulfate (Magnesium Sulfate Ivpb) 2 gm in 50 mls @ 25 mls/hr IV X1 ONE Stop: 01/01/25 22:36 Last Admin: 01/01/25 21:32 Dose: 25 mls/hr Ceftriaxone Sodium/Dextrose (Rocephin/D5w 1gm Iv Premix) 1 gm in 50 mls @ 100 mls/hr IV QDAY MARIANO Stop: 01/10/25 08:59 Ceftriaxone Sodium/Dextrose (Rocephin/D5w 1gm Iv Premix) 1 gm in 50 mls @ 100 mls/hr IV X1 ONE Stop: 01/02/25 15:29 Last Admin: 01/02/25 15:22 Dose: 100 mls/hr Magnesium Sulfate (Magnesium Sulfate Ivpb) 2 gm in 50 mls @ 25 mls/hr IV X1 ONE Stop: 01/02/25 23:58 Last Admin: 01/02/25 22:38 Dose: 25 mls/hr Vancomycin/Sodium Chloride (Vancomycin/Ns 1 Gm Ivpb) 200 mls @ 120 mls/hr IV X1 ONE Stop: 01/03/25 11:39 Last Admin: 01/03/25 10:09 Dose: 120 mls/hr Pantoprazole Sodium (Pantoprazole Inj 40 Mg Vial) 40 mg IV X1 ONE Stop: 01/01/25 19:33 Last Admin: 01/01/25 19:46 Dose: 40 mg Assessment & Plan Plan Sincere Weaver is a 59-year-old male with a past medical history of hypothyroidism, chronic left lower extremity dermatitis, ESRD on HD (M/W/F) following Dr. Cotton, chronic anemia secondary to CKD who was admitted on 12/30 for chronic osteomyelitis of the anterior tibial shaft for which he is to continue IV antibiotics for 6 weeks. He was planned for discharge but was found to be hypoglycemic and repeat EKG showed bigeminy with PACs vs MAT vs 2nd degree heart block for which cardiology was consulted. #EKG with bigeminy with PACs vs MAT vs 2nd degree heart block EKG on 01/03 shows bigeminy and normal sinus rhythm, but with at least two different P-wave morphologies, easiest to see in V1 with noted prolonged CA interval of 250. Upon further evaluation of lead II, every other R-R interval marches out regularly with at least two different P-wave morphologies seen, suggestive of an atrial foci in addition to the ROACH. Possible to have MAT, but patient is not tachycardic. 2nd degree heart block unlikely as each P wave is associated with QRS complex and no dropped beats noted. ? Follow-up cardiac echo to evaluate for possible LA enlargement #Hyperbilirubinemia #Transaminitis #Chronic osteomyelitis of left lower extremity #Chronic LLE ulcer #Bilateral chronic venous stasis #ESRD on HD (M/W/F) #Chronic anemia, likely secondary to ESRD, in setting of chronic leg ulcers #Chronic thrombocytopenia, secondary to ESRD #Hypothyroidism ? Management of above conditions per primary team and other consultants ----- Plan discussed with attending physician Dr. Akua Quezada MD PGY-1 Internal Medicine Attending Provider Attestation/Addendum I have personally seen and examined the patient separately on the above date of service and discussed the plan of care with the resident. I reviewed the resident Dr. Rogelio Quezada consultation progress note and agree with the resident findings and plan in the note above and have also edited the documentation to reflect my findings and plan. A 59-year-old male with a past medical history of end-stage renal disease on hemodialysis followed by Dr. Huangly, essential hypertension, chronic anemia secondary to end-stage renal disease and frequent PRBC transfusions, hypothyroidism, chronic bilateral venous stasis with dermatitis, left leg venous ulcer due to chronic peripheral venous hypertension, morbid obesity with a BMI of 38.6, chronic thrombocytopenia and possible leukopenia is admitted for worsening of chronic ulcer on left lower extremity for the past 3 days With left lower extremity cellulitis. Cardiology now consulted for further evaluation of an abnormal EKG and telemetry. Patient denies any previous heart disease having had a previous cardiac procedures. Denies any chest pain chest pressure has shortness of breath at baseline is some orthopnea. Does have leg swelling left greater than right along with a leg ulcer. Denies any kind of syncope dizziness or fall or PND or palpitations. Denies any kind of fever or chills. EKG showed normal sinus rhythm with frequent PACs versus med there is no evidence of any other heart block. Assessment and plan. 1. Abnormal EKG 2. Possible chronic diastolic ingestive heart failure 3. End-stage renal disease on hemodialysis 4. Chronic left lower extremity ulcer and cellulitis 5. Bilateral chronic venous stasis 6. Chronic osteomyelitis of left lower extremity 7. Chronic anemia likely secondary to ESRD and also has frequent admissions 8. Chronic thrombocytopenia 9. Hypothyroidism 10. Obesity 11. Essential hypertension Patient denies any previous heart disease as noted above and then does have baseline shortness of breath but denies any other major cardiac complaints except for the leg swelling as noted above. Reviewed the EKG as well as the telemetry in detail. Patient does have first-degree AV block with normal sinus rhythm and frequent PACs and have intermittent multifocal atrial tachycardia. There was no evidence of any second-degree or third-degree heart block. Patient does not need any kind of pacemaker at the present point of time. Patient will need a beta-hawk for the frequent PACs as well as the MAT. Patient appears to be on midodrine and hence beta-hawk can be started at the present point of time but whenever blood pressure is high then can start the beta-hawk. No need of anticoagulation for multifocal atrial tachycardia. Keep potassium greater than 4 and magnesium greater than 2.0 Echocardiogram ordered to evaluate LV function RV function, diastolic function and valvular abnormalities as patient does have 3 or 6 systolic murmur at the aortic area. Recommend to do further complete anemia workup and also the thrombocytopenia Juan Fatima M.D. Interventional Cardiology
[2025-01-04] VITALS (13 sets, daily range): BP systolic 68–107; BP diastolic 35–56; PULSE 65–87; RESP 18–24; TEMP 36.4–37.9; O2SAT 91–96
--- NOTE | 2025-01-04 | XR_ITS ---
MRI abdomen, without contrast. MRCP Date and time of exam: January 04, 2025 1545 hours Comparison January 07, 2023 INDICATIONS: Elevated liver function tests on laboratory examination today Technique: Multiple axial and coronal images of the abdomen have been obtained with the Siemens 1.5T MRI scanner. Images obtained included T1 weighted transverse images, T2-weighted transverse images, T2-weighted transverse images fat-suppressed, T2 weighted haste fat suppressed transverse images, T1 weighted images, in and out of phase images, T2-weighted coronal images, breath hold, T2 weighted haze coronal images as well as T2 weighted coronal thick slab images, MRCP. Findings: Liver irregular in contour, hepatomegaly 21 cm No focal liver lesions Prominent splenomegaly 20 cm Gallbladder not visualized Common hepatic common bile duct not enlarged, no common bile duct or common hepatic duct stones No pancreatic mass no peripancreatic edema No ascites End-stage atrophic kidneys Aorta normal size IMPRESSION: Cirrhosis Hepatosplenomegaly No common hepatic or common bile duct stones Negative for pancreatitis
[2025-01-04] MEDS: DEXTROSE 5%-WATER 1,000 ML 30 ML IV (05:27)
[2025-01-04 05:58] LABS: Basophils % (Auto) 0 % (0-2.5); Eosinophils # (Auto) 0.1 Thou/mm3 (0.0-0.5); Eosinophils % (Auto) 4 % (0-10); Hematocrit 23.9 % (41.0-53.0); Immature Granulocytes % (Auto) 1 % (0-0); Immature Granulocytes Auto 0.02 Thou/mm3 (0.00-0.00); Lymphocytes # (Auto) 0.3 Thou/mm3 (1.0-4.8); Lymphocytes % (Auto) 8 % (10-50); Mean Corpuscular HGB Conc 34.3 g/dl (31.0-37.0); Mean Corpuscular Hemoglobin 31.2 pg (25.0-35.0); Mean Corpuscular Volume 91 fL (80-100); Monocytes # (Auto) 0.2 Thou/mm3 (0.0-0.8); Monocytes % (Auto) 4 % (0-12); Neutrophils # (Auto) 3.2 Thou/mm3 (1.8-7.7); Neutrophils % (Auto) 84 % (37-80); Nucleated Red Blood Cell # 0.02 Thou/mm3 (0.00-0.00); Nucleated Red Blood Cell % 1 /100 WBC (0); RDW Standard Deviation 56.3 fL (35.1-43.9); Red Blood Count 2.63 Miln/mm3 (4.50-5.90); White Blood Count 3.9 Thou/mm3 (3.8-10.6)
[2025-01-04 06:24] LABS: Hemoglobin 8.2 g/dL (13.5-16.0); Platelet Count 39 Thou/mm3 (140-440)
[2025-01-04 06:36] LABS: Alanine Aminotransferase 79 U/L (10-49); Albumin, Serum 2.6 gm/dL (3.5-5.0); Alkaline Phosphatase 539 U/L (46-116); Anion Gap 9 (7-16); Aspartate Amino Transferase 47 U/L (0-34); BUN/Creatinine Ratio 7 Ratio (12-20); Bilirubin,Total 5.5 mg/dL (0.3-1.2); Blood Urea Nitrogen 46 mg/dL (9-23); Calcium 9.4 mg/dL (8.3-10.6); Calcium (Corrected) 10.5 mg/dL (8.5-10.1); Chloride 93 mMol/L (98-107); Creatinine (Component) 6.8 mg/dL (0.6-1.3); Estimated Creatinine Clearance 17.4 mL/min (>60); Globulin 2.7 gm/dL (2.3-3.5); Glucose 84 mg/dL (74-106); Magnesium 1.8 mg/dL (1.6-2.6); Osmolality,Calculated 271 (275-295); Phosphorous 2.9 mg/dL (2.4-5.1); Potassium 4.1 mMol/L (3.4-5.1); Sodium 130 mMol/L (136-145); Total Protein 5.3 gm/dL (5.7-8.2); Vancomycin,Random 18.9 mcg/mL; eGFR 9 See Note
[2025-01-04] MEDS: LEVOTHYROXINE SODIUM 112 MCG TABLET PO (06:41)
[2025-01-04] MEDS: DEXTROSE 50%-WATER INJ 50 ML SYRINGE 25 ML IV (06:42)
--- NOTE | 2025-01-04 07:20 | CHAP ---
Rapid response call. No family present.
--- NOTE | 2025-01-04 07:26 | EKG_ITS ---
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
[2025-01-04] MEDS: SODIUM CHLORIDE 0.9% 1000 ML 1,000 ML 999 ML IV (07:33)
[2025-01-04] MEDS: MIDODRINE 5 MG TABLET 10 MG PO ×3 (07:33→21:03)
--- NOTE | 2025-01-04 07:35 | XR_ITS ---
Examination: Duplex scan of the upper extremity, unilateral left Date and time of exam: January 04, 2025 1311 hours INDICATIONS: Redness swelling and pain involving the left arm beginning 2 days ago Technique: Duplex scan of the extremity veins using B-mode/grayscale imaging and Doppler spectral analysis and color flow Attention is directed to internal echogenicity, compression and augmentation involving these veins, color flow assessment, spectral analysis Findings: Major deep venous structures in the extremity demonstrate normal course and caliber. There is no evidence of deep vein thrombosis. Normal color flow and spectral analysis No diagnostic visualization cephalic vein Fistula is patent Impression: Negative for DVT..
--- NOTE | 2025-01-04 07:36 | EKG_ITS ---
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 : 1965 Requested By: Kimberly Hopkins Order Number: [id number] Reading MD: Kimberly Hopkins Measurements Intervals [place] Rate: 75 P: 199 MT: 148 QRS: 17 QRSD: 122 T: 158 QT: 462 QTc: 519 Interpretive Statements SINUS RHYTHM WITH FREQUENT SUPRAVENTRICULAR PREMATURE COMPLEXES IN A BIGEMINAL PATTERN MODERATE INTRAVENTRICULAR CONDUCTION DELAY ST DEVIATION AND MODERATE T-WAVE ABNORMALITY, CONSIDER LATERAL ISCHEMIA Compared to ECG 01/04/2025 08:29:22 T-wave abnormality now present Possible ischemia now present Sinus tachycardia no longer present Ventricular premature complex(es) no longer present First degree AV block no longer present /store/S0/[id number].pdf
--- NOTE | 2025-01-04 07:36 | XR_ITS ---
Examination: AP chest single view TECHNIQUE: AP portable semiupright chest single view Exam date and time: January 04, 2025 0838 hours Comparison 06/19/2024 INDICATIONS: Sepsis alert, history cellulitis and left foot ulcer FINDINGS: Mild enlargement cardiac contour Moderate vascular congestion. No lobar pneumonia. Prominent osteopenia IMPRESSION: Moderate vascular congestion No lobar pneumonia
--- NOTE | 2025-01-04 08:12 | PD.RESEVENT ---
Documentation for date of: 01/04/25 Event Note Event Note: Around 7:23 AM, rapid response was called for patient in [place] in view of hypotension Vitals at the time of rapid response are temperature 99.8 ?F, blood pressure 68/35 mmHg, heart rate 78/min, respiratory rate 24/min, SpO2 96% with room air. Patient complaining of rash all over the body which is present since 2 days. Denies any other complaints. A liter NS bolus, midodrine 10 Mg was given. Later sepsis alert was called in view of elevated temperature, 100.3 ?F and hypotension. CBC, CMP, lactate, procalcitonin, blood cultures were ordered Later blood pressures improved to 95/54 mmHg, rest of the vitals are stable. Patient was transferred from [facility] to telemetry for further management. Will follow-up with the results Patient plan of care was discussed with the attending physician, Dr. Laurne and senior resident Dr. Kenneth Gallo, PGY1
[2025-01-04 09:54] LABS: Lactate (Lactic Acid) 2.6 mMol/L (0.4-2.0)
[2025-01-04 09:57] LABS: Basophils % (Auto) 0 % (0-2.5); Eosinophils # (Auto) 0.2 Thou/mm3 (0.0-0.5); Eosinophils % (Auto) 4 % (0-10); Hematocrit 23.7 % (41.0-53.0); Immature Granulocytes % (Auto) 1 % (0-0); Immature Granulocytes Auto 0.04 Thou/mm3 (0.00-0.00); Lymphocytes # (Auto) 0.3 Thou/mm3 (1.0-4.8); Lymphocytes % (Auto) 6 % (10-50); Mean Corpuscular HGB Conc 34.2 g/dl (31.0-37.0); Mean Corpuscular Hemoglobin 31.5 pg (25.0-35.0); Mean Corpuscular Volume 92 fL (80-100); Monocytes # (Auto) 0.2 Thou/mm3 (0.0-0.8); Monocytes % (Auto) 4 % (0-12); Neutrophils # (Auto) 3.9 Thou/mm3 (1.8-7.7); Neutrophils % (Auto) 84 % (37-80); Nucleated Red Blood Cell % 0 /100 WBC (0); RDW Standard Deviation 57.5 fL (35.1-43.9); Red Blood Count 2.57 Miln/mm3 (4.50-5.90); White Blood Count 4.7 Thou/mm3 (3.8-10.6)
[2025-01-04 09:58] LABS: Hemoglobin 8.1 g/dL (13.5-16.0); Platelet Count 38 Thou/mm3 (140-440)
[2025-01-04] MEDS: VIT B12/Vit C/FA (Nephrovite) TABLET 1 TAB PO (10:06)
[2025-01-04] MEDS: EPOETIN ALFA INJ 1,000 UNIT/0.05 ML UNIT 10000 UNIT SC (10:07)
[2025-01-04 10:10] LABS: INR 1.4 (0.9-1.3); Partial Thromboplastin Time 36.3 Seconds (22.0-36.0); Prothrombin Time 15.4 Seconds (9.0-12.2)
[2025-01-04 10:12] LABS: B-Type Natriuretic Peptide 161 pg/mL (0-100)
--- NOTE | 2025-01-04 10:15 | PC.NURSE ---
RN called Dr. Cotton about blood transfusion. hgb 8.1 this AM. ordered to hold transfusion until 01/05 when the pt has HD
--- NOTE | 2025-01-04 10:17 | XR_ITS ---
Examination: CT abdomen and pelvis without contrast. Coronal 3-D reconstructions. Sagittal 2-D reconstructions. Date and time of exam:January 04, 2025 1042 hours INDICATIONS: Elevated liver function tests on laboratory examination this week CTDI: vol (mGy): 13.2 DLP: (mGycm): 905 Technique: Axial images of the abdomen have been obtained, 3 mm slice thickness Intravenous contrast material has not been administered. Low dose protocols were performed. One or more of the following dose reduction techniques were used; automated exposure control, adjustment of the mA and/or KV according to patient size, use of iterative reconstruction technique. Findings: Liver is mildly irregular in contour with diffuse fatty infiltration Mild hepatomegaly No intrahepatic biliary tract dilatation Gallstones Gallbladder wall appears calcified Splenomegaly 18 cm No pancreatic mass Atrophic end-stage kidneys with multiple bilateral renal calculi, the largest in the right kidney 6 mm No hydronephrosis or renal calculi Abdominal aortic calcification no aneurysmal dilatation No bowel obstruction Normal appendix Colonic diverticulosis, no diverticulitis Atrophic left pelvic transplant kidney Contracted urinary bladder No prostatomegaly Significant osteopenia IMPRESSION: Cirrhosis Prominent splenomegaly Cholelithiasis, calcification in the gallbladder wall, recommend gallbladder sonography follow-up End-stage ione kidneys with multiple renal calculi, no hydronephrosis Atrophic left transplant kidney in the pelvis No bowel obstruction No CT findings of appendicitis or diverticulitis
[2025-01-04 10:23] LABS: Alanine Aminotransferase 72 U/L (10-49); Albumin, Serum 2.6 gm/dL (3.5-5.0); Alkaline Phosphatase 513 U/L (46-116); Anion Gap 10 (7-16); Aspartate Amino Transferase 46 U/L (0-34); BUN/Creatinine Ratio 7 Ratio (12-20); Bilirubin,Direct 4.1 mg/dL (0.0-0.3); Bilirubin,Total 5.8 mg/dL (0.3-1.2); Blood Urea Nitrogen 49 mg/dL (9-23); Calcium (Corrected) 10.1 mg/dL (8.5-10.1); Carbon Dioxide 26.2 mMol/L (20.0-31.0); Chloride 94 mMol/L (98-107); Estimated Creatinine Clearance 16.9 mL/min (>60); Globulin 2.5 gm/dL (2.3-3.5); Glucose 111 mg/dL (74-106); Osmolality,Calculated 274 (275-295); Potassium 3.6 mMol/L (3.4-5.1); Procalcitonin 7.95 ng/ml (0.0-0.49); Sodium 130 mMol/L (136-145); Total Protein 5.1 gm/dL (5.7-8.2); Troponin I < 0.020 ng/mL (0.0-0.045); eGFR 8 See Note
[2025-01-04 10:23] LABS: Slide Review Platelets confirmed
[2025-01-04 10:23] LABS: Slide Review Platelets confirmed
--- NOTE | 2025-01-04 11:18 | PC.SS ---
SS follow up note; Blood Glucose being monitored, pending blood cultures. Patient will discharge home when medically cleared.
[2025-01-04] MEDS: DiphenhydrAMINE 25 MG CAPSULE PO (11:49)
--- NOTE | 2025-01-04 12:33 | PC.NURSE ---
[address] Hernandez regarding HGB 4.0. Per Cal with labratory may be diluted and will redraw.
--- NOTE | 2025-01-04 12:47 | ESPR_ITS ---
Documentation for date of: 01/04/25 Subjective Subjective Interval history: Mr. Weaver is a 59-year-old male with a known history of ESRD on hemodialysis (HD) thrice weekly (Thursday/Thursday/Thursday), under the care of Dr. Cotton for the past 11 years. He presented to the ED with generalized weakness and worsening of a chronic left lower extremity ulcer, which has been present for approximately 2.5 years. He reports being at baseline until 3 days ago, when he began experiencing generalized weakness without associated fever, nausea, or vomiting. He endorses that he scratched his left leg, which led to an ulcerative lesion at the site. The patient states he has been intermittently seen by wound care and has been managing the wound at home with antiseptics. He also reports chronic venous stasis for over 8 years with progressive worsening of the ulcer over the past 2 years. He previously attempted evaluation for renal transplantation but was not listed due to elevated body weight. The patient missed his most recent dialysis session scheduled for 12/30/2024 due to worsening weakness. His last dialysis session was on 12/28/2024. Initial vitals: BP 104/52 mmHg, HR 78 bpm, RR 20/min, Temp 98.2?F, SpO? 100% on room air Laboratory results: Sodium 134, potassium 4.4, chloride 94, BUN 46, creatinine 8.1, EGFR 7, TIBC 99, iron saturation 71, CRP 13.3, Pro-Calc 2.17, WBC 4.3, Hgb 7.0, PLT 58. Cultures are pending, currently on DILAUDID and ZOSYN. PMHx: ESRD on HD, hypothyroidism, chronic venous stasis, chronic anemia PSHx: Left upper extremity AV fistula placement MEDS: Pending med rec no need for any surgical intervention. Patient wants to follow-up with wound care center. ALLERGIES: Adhesive tape FHx: Not significant SH: Denies tobacco, alcohol or drug use Nephrology was consulted for inpatient hemodialysis. 01/01/2025 patient currently seen in medical floor. Resting comfortably. Still having significant discomfort in the lower extremities. He has a huge ulcers on the left leg. Seen by surgeon-if he is not discharged-he will need dialysis tomorrow. 01/02/2025 examined at bedside. Complaining of lower extremity pain. Bilaterally skin desquamation improved with wound care. CT showed osteomyelitis of the left lower extremity, surgery on board, pending ID recommendation. Advised against central line, contraindicated with HD. Can do ABX thru HD cath. 01/03/2025 Examined at bedside. Reports no new or worsening of symptoms. CR 5.4, BUN 35, EGFR 12. Will do 6 weeks of IV ROCEPHIN and VANCO with HD per ID recs. Complained of recurrent hypoglycemia episodes, recommended DIAZOXIDE PRN on d/c. 01/04/2025 Examined at bedside. Denies fever, chills, headaches, chest pain, sob, cough, GI or urinary symptoms. CR 7.0, BUN 49, GFR 8, sodium 130, chloride 94. Has diffuse erythematous rash on exam, suggestive of red man syndrome following VANCOMYCIN which was discontinued. Exam Vital Signs Temp Pulse Resp BP Pulse Ox O2 Del Method O2 Flow Rate 99.8 F 72 24 H 95/54 L 96 Room Air 2 01/04/25 07:21 01/04/25 12:00 01/04/25 07:21 01/04/25 07:33 01/04/25 07:21 01/04/25 07:20 01/02/25 12:38 Narrative Exam General: Awake. HEENT: Normocephalic, atraumatic, mucous membranes moist. Heart: Regular rate and rhythm, no murmurs. Lungs: Clear to auscultation with no wheezing or crackles. Abdomen: Soft, nondistended, nontender, positive bowel sounds. ?No guarding or rebound tenderness. Neurologic: Alert and oriented x3, no gross neurological deficit, and patient able to move all 4 extremities. Extremities: Bilateral chronic venous stasis. Chronic ulcer with necrotic patch of approximately 5 x 10 x 7 cm noted on the anterior expected of left lower leg, ulceration noted on the lateral side of the leg, induration noted in the entire left lower extremity. Skin: No rash or ecchymoses. Objective Labs 01/04/25 09:32 01/04/25 09:33 Labs: Laboratory Results - last 24 hr 01/02/25 01/04/25 01/04/25 07:52 05:05 09:32 WBC 3.9 4.7 RBC 2.63 L 2.57 L Hgb 8.2 L 8.1 L Hct 23.9 L 23.7 L MCV 91 92 MCH 31.2 31.5 MCHC 34.3 34.2 RDW Std Deviation 56.3 H 57.5 H Plt Count 39 L 38 L Neut % (Auto) 84 H 84 H Lymph % (Auto) 8 L 6 L [place] % (Auto) 4 4 Eos % (Auto) 4 4 Baso % (Auto) 0 0 Neut # (Auto) 3.2 3.9 Lymph # (Auto) 0.3 L 0.3 L [place] # (Auto) 0.2 0.2 Eos # (Auto) 0.1 0.2 Baso # (Auto) 0.0 0.0 Immature Gran # (Auto) 0.02 H 0.04 H Absolute Nucleated RBC 0.02 H 0.00 Immature Gran % 1 H 1 H Nucleated RBC % 1 H 0 PT 15.4 H INR 1.4 H APTT 36.3 H Sodium 130 L Potassium 4.1 D Chloride 93 L Carbon Dioxide 28.0 Anion Gap 9 BUN 46 H Creatinine 6.8 H* D Estim Creat Clear Calc 17.4 L eGFR 9 L* BUN/Creatinine Ratio 7 L Glucose 84 Calculated Osmolality 271 L Lactic Acid Calcium 9.4 Corrected Calcium 10.5 H Phosphorus 2.9 Magnesium 1.8 Total Bilirubin 5.5 H D Direct Bilirubin AST 47 H ALT 79 H Alkaline Phosphatase 539 H Troponin I B-Natriuretic Peptide Total Protein 5.3 L Albumin 2.6 L Globulin 2.7 Albumin/Globulin Ratio 1.0 L Procalcitonin Random Vancomycin 18.9 Misc Test Result Platelets confirmed Platelets confirmed Blood Type O Positive Antibody Screen POSITIVE Antibody Identification Cold Antibody Crossmatch See Detail Blood Bank Wristband ID Yes 01/04/25 09:33 WBC RBC Hgb Hct MCV MCH MCHC RDW Std Deviation Plt Count Neut % (Auto) Lymph % (Auto) [place] % (Auto) Eos % (Auto) Baso % (Auto) Neut # (Auto) Lymph # (Auto) [place] # (Auto) Eos # (Auto) Baso # (Auto) Immature Gran # (Auto) Absolute Nucleated RBC Immature Gran % Nucleated RBC % PT INR APTT Sodium 130 L Potassium 3.6 D Chloride 94 L Carbon Dioxide 26.2 Anion Gap 10 BUN 49 H Creatinine 7.0 H* Estim Creat Clear Calc 16.9 L eGFR 8 L* BUN/Creatinine Ratio 7 L Glucose 111 H Calculated Osmolality 274 L Lactic Acid 2.6 H Calcium 9.0 Corrected Calcium 10.1 Phosphorus Magnesium Total Bilirubin 5.8 H Direct Bilirubin 4.1 H AST 46 H ALT 72 H Alkaline Phosphatase 513 H D Troponin I < 0.020 B-Natriuretic Peptide 161 H Total Protein 5.1 L Albumin 2.6 L Globulin 2.5 Albumin/Globulin Ratio 1.0 L Procalcitonin 7.95 H Random Vancomycin Misc Test Result Blood Type Antibody Screen Antibody Identification Crossmatch Blood Bank Wristband ID Quality Measures Quality Measures none Assessment & Plan Assessment Current Active Medications: Generic Name Dose Route Start Last Admin Trade Name Freq PRN Reason Stop Dose Admin Acetaminophen 650 mg 12/31/24 09:07 Acetaminophen 325 Mg Tablet PO 01/29/25 18:29 Q6H PRN Fever >100.3 Dextrose 25 ml 12/31/24 02:53 01/04/25 06:42 Dextrose 50%-Water Inj 50 Ml Syringe IV 01/30/25 02:52 25 ml Q15MIN PRN Administration BG 50-70 responsive npo pt Dextrose 50 ml 12/31/24 02:53 Dextrose 50%-Water Inj 50 Ml Syringe IV 01/30/25 02:52 Q15MIN PRN BG <50 OR BG <70 & pt unresponsive Diphenhydramine HCl 25 mg 01/01/25 10:59 01/04/25 11:49 Diphenhydramine 25 Mg Capsule PO 01/31/25 10:58 25 mg Q6HR PRN Administration ITCHING Glucagon 1 mg 12/31/24 02:53 Glucagon Inj 1 Mg Vial IM Q15MIN PRN BG <70, and no IV access Hydromorphone HCl 1 mg 12/30/24 18:30 Hydromorphone Inj 2 Mg/Ml Vial IVP 01/04/25 18:29 Q4H PRN Pain 7 - 10 Dextrose 1,000 mls @ 30 mls/hr 01/02/25 21:00 01/04/25 05:27 D5w IV 02/01/25 20:59 30 mls/hr .Q24H MARIANO Administration Ceftriaxone Sodium/Dextrose 2 gm in 50 mls @ 100 mls/hr 01/04/25 17:00 Rocephin/D5w 2gm IV 01/04/25 17:29 X1 ONE Levothyroxine Sodium 112 mcg 12/31/24 06:00 01/04/25 06:41 Levothyroxine Sodium 112 Mcg Tablet PO 01/30/25 05:59 112 mcg ACBR MARIANO Administration Ondansetron HCl 4 mg 12/30/24 18:30 Ondansetron Inj 2 Mg/Ml Inj 2 Ml IV 01/29/25 18:29 Q6H PRN NAUSEA OR VOMITING Protocol Vitamin B Complex/Vit C/Folic Acid 1 tab 12/31/24 09:00 01/04/25 10:06 Vit B12/Vit C/Fa (Nephrovite) Tablet PO 01/30/25 08:59 1 tab QDAY MARIANO Administration Plan 59-year-old male with PMHx of ESRD HD MWF, hypothyroidism, chronic left lower extremity ulcer, chronic anemia, recurrent GI bleed and biweekly transfusions, presenting with worsening left extremity pain. Admitted for cellulitis of left lower extremity with laceration. No HD today 2/2 low blood pressure. ESRD HD MWF Anemia of chronic disease Recurrent blood transfusions History of ESRD. Has recurrent GI bleed with biweekly blood transfusions--patient under the care of Dr. Azar and Dr. Ervin from [facility] did receive 2 units of packed red blood cells and Epogen 01/02 with dialysis ? Continue HD MWF, no HD today 01/04 ? ABX with HD ? Daily labs Left lower extremity osteomyelitis, cellulitis superimposed on Chronic Left lower extremity ulcer with eschar-no need for surgical intervention per surgeon Bilateral chronic venous stasis. Chronic anemia, likely secondary to ESRD, in setting of chronic leg ulcers. Chronic Thrombocytopenia, secondary to ESRD. Hypothyroidism. ? Managed by primary team ? Avoid VANCOMYCIN, concern for red man syndrome Thank you for the opportunity to participate in the patient's care. Case was discussed with attending, Dr. Cotton. Sherine Hinds DO PGYI Attending Provider Attestation/Addendum Patient seen and examined with resident physician Dr. Basurto. Note reviewed, agree with findings and recommendations. Admitted with weakness, significant in left leg ulcers with oozing Patient had a rapid response for low blood pressure. Noted to have significant erythema in the entire body with rash. Suspect red man syndrome. Spoke to Dr. Lauren-given steroid, Benadryl IV. Hold dialysis today. Hold blood transfusion today. Patient with osteomyelitis of the left leg. Will need antibiotics for 6 weeks will be given at the dialysis.
[2025-01-04 12:50] LABS: Reflex Lactate? Y
--- NOTE | 2025-01-04 13:06 | ESPR_ITS ---
Documentation for date of: 01/04/25 Subjective Subjective Interval history: No acute overnight events noted. However, rapid response was called at 7:21 AM for blood pressure 68/35. He was given 1 L NS bolus and 10 mg midodrine x 1 and drinks BP improved to 83/41. Patient follows HD schedule of MWF, but given RR HD was held today. Seen at bedside in overall doing well, but does endorse fatigue, some shortness of breath, and lightheadedness that he attributes to his anemia. Repeat EKG again showed similar pattern to prior. Echo ordered, and will follow-up. Exam Vital Signs Temp Pulse Resp BP Pulse Ox O2 Del Method O2 Flow Rate 98.8 F 83 18 85/45 L 92 L Room Air 2 01/04/25 12:00 01/04/25 12:00 01/04/25 12:00 01/04/25 12:00 01/04/25 12:00 01/04/25 12:00 01/02/25 12:38 Narrative Exam General: AOx3, no acute distress, disheveled, able to speak full sentences HEENT: NC/AT, mucous membranes moist, bilateral sclera anicteric Cardiovascular: regular rate and rhythm, S1/S2 present, no murmurs appreciated Pulmonary: clear to auscultation bilaterally, no rales/rhonchi/wheezes Abdominal: soft, non-tender, non-distended, no rebound/guarding, normal bowel sounds present Musculoskeletal: LLE bandaged and more swollen than RLE Skin: bilateral chronic venous stasis, AV fistula in LUE Neuro: CN II-XII intact, no focal deficits Objective Labs 01/04/25 09:32 01/04/25 09:33 Labs: Laboratory Results - last 24 hr 01/02/25 01/04/25 01/04/25 07:52 05:05 09:32 WBC 3.9 4.7 RBC 2.63 L 2.57 L Hgb 8.2 L 8.1 L Hct 23.9 L 23.7 L MCV 91 92 MCH 31.2 31.5 MCHC 34.3 34.2 RDW Std Deviation 56.3 H 57.5 H Plt Count 39 L 38 L Neut % (Auto) 84 H 84 H Lymph % (Auto) 8 L 6 L [place] % (Auto) 4 4 Eos % (Auto) 4 4 Baso % (Auto) 0 0 Neut # (Auto) 3.2 3.9 Lymph # (Auto) 0.3 L 0.3 L [place] # (Auto) 0.2 0.2 Eos # (Auto) 0.1 0.2 Baso # (Auto) 0.0 0.0 Immature Gran # (Auto) 0.02 H 0.04 H Absolute Nucleated RBC 0.02 H 0.00 Immature Gran % 1 H 1 H Nucleated RBC % 1 H 0 PT 15.4 H INR 1.4 H APTT 36.3 H Sodium 130 L Potassium 4.1 D Chloride 93 L Carbon Dioxide 28.0 Anion Gap 9 BUN 46 H Creatinine 6.8 H* D Estim Creat Clear Calc 17.4 L eGFR 9 L* BUN/Creatinine Ratio 7 L Glucose 84 Calculated Osmolality 271 L Lactic Acid Calcium 9.4 Corrected Calcium 10.5 H Phosphorus 2.9 Magnesium 1.8 Total Bilirubin 5.5 H D Direct Bilirubin AST 47 H ALT 79 H Alkaline Phosphatase 539 H Troponin I B-Natriuretic Peptide Total Protein 5.3 L Albumin 2.6 L Globulin 2.7 Albumin/Globulin Ratio 1.0 L Procalcitonin Random Vancomycin 18.9 Misc Test Result Platelets confirmed Platelets confirmed Blood Type O Positive Antibody Screen POSITIVE Antibody Identification Cold Antibody Crossmatch See Detail Blood Bank Wristband ID Yes 01/04/25 09:33 WBC RBC Hgb Hct MCV MCH MCHC RDW Std Deviation Plt Count Neut % (Auto) Lymph % (Auto) [place] % (Auto) Eos % (Auto) Baso % (Auto) Neut # (Auto) Lymph # (Auto) [place] # (Auto) Eos # (Auto) Baso # (Auto) Immature Gran # (Auto) Absolute Nucleated RBC Immature Gran % Nucleated RBC % PT INR APTT Sodium 130 L Potassium 3.6 D Chloride 94 L Carbon Dioxide 26.2 Anion Gap 10 BUN 49 H Creatinine 7.0 H* Estim Creat Clear Calc 16.9 L eGFR 8 L* BUN/Creatinine Ratio 7 L Glucose 111 H Calculated Osmolality 274 L Lactic Acid 2.6 H Calcium 9.0 Corrected Calcium 10.1 Phosphorus Magnesium Total Bilirubin 5.8 H Direct Bilirubin 4.1 H AST 46 H ALT 72 H Alkaline Phosphatase 513 H D Troponin I < 0.020 B-Natriuretic Peptide 161 H Total Protein 5.1 L Albumin 2.6 L Globulin 2.5 Albumin/Globulin Ratio 1.0 L Procalcitonin 7.95 H Random Vancomycin Misc Test Result Blood Type Antibody Screen Antibody Identification Crossmatch Blood Bank Wristband ID Quality Measures Quality Measures none Assessment & Plan Assessment Current Active Medications: Generic Name Dose Route Start Last Admin Trade Name Freq PRN Reason Stop Dose Admin Acetaminophen 650 mg 12/31/24 09:07 Acetaminophen 325 Mg Tablet PO 01/29/25 18:29 Q6H PRN Fever >100.3 Dextrose 25 ml 12/31/24 02:53 01/04/25 06:42 Dextrose 50%-Water Inj 50 Ml Syringe IV 01/30/25 02:52 25 ml Q15MIN PRN Administration BG 50-70 responsive npo pt Dextrose 50 ml 12/31/24 02:53 Dextrose 50%-Water Inj 50 Ml Syringe IV 01/30/25 02:52 Q15MIN PRN BG <50 OR BG <70 & pt unresponsive Diphenhydramine HCl 25 mg 01/01/25 10:59 01/04/25 11:49 Diphenhydramine 25 Mg Capsule PO 01/31/25 10:58 25 mg Q6HR PRN Administration ITCHING Glucagon 1 mg 12/31/24 02:53 Glucagon Inj 1 Mg Vial IM Q15MIN PRN BG <70, and no IV access Hydromorphone HCl 1 mg 12/30/24 18:30 Hydromorphone Inj 2 Mg/Ml Vial IVP 01/04/25 18:29 Q4H PRN Pain 7 - 10 Dextrose 1,000 mls @ 30 mls/hr 01/02/25 21:00 01/04/25 05:27 D5w IV 02/01/25 20:59 30 mls/hr .Q24H MARIANO Administration Ceftriaxone Sodium/Dextrose 2 gm in 50 mls @ 100 mls/hr 01/04/25 17:00 Rocephin/D5w 2gm IV 01/04/25 17:29 X1 ONE Levothyroxine Sodium 112 mcg 12/31/24 06:00 01/04/25 06:41 Levothyroxine Sodium 112 Mcg Tablet PO 01/30/25 05:59 112 mcg ACBR MARIANO Administration Ondansetron HCl 4 mg 12/30/24 18:30 Ondansetron Inj 2 Mg/Ml Inj 2 Ml IV 01/29/25 18:29 Q6H PRN NAUSEA OR VOMITING Protocol Vitamin B Complex/Vit C/Folic Acid 1 tab 12/31/24 09:00 01/04/25 10:06 Vit B12/Vit C/Fa (Nephrovite) Tablet PO 01/30/25 08:59 1 tab QDAY MARIANO Administration Plan Sincere Weaver is a 59-year-old male with a past medical history of hypothyroidism, chronic left lower extremity dermatitis, ESRD on HD (M/W/F) following Dr. Cotton, chronic anemia secondary to CKD who was admitted on 12/30 for chronic osteomyelitis of the anterior tibial shaft for which he is to continue IV antibiotics for 6 weeks. He was planned for discharge but was found to be hypoglycemic and repeat EKG showed bigeminy with PACs vs MAT vs 2nd degree heart block for which cardiology was consulted. #EKG with bigeminy with PACs vs MAT vs 2nd degree heart block EKG on 01/03 shows bigeminy and normal sinus rhythm, but with at least two different P-wave morphologies, easiest to see in V1 with noted prolonged AL interval of 250. Upon further evaluation of lead II, every other R-R interval marches out regularly with at least two different P-wave morphologies seen, suggestive of an atrial foci in addition to the ROACH. Possible to have MAT, but patient is not tachycardic. 2nd degree heart block unlikely as each P wave is associated with QRS complex and no dropped beats noted. ? Follow-up cardiac echo to evaluate for possible LA enlargement #Hyperbilirubinemia #Transaminitis #Chronic osteomyelitis of left lower extremity #Chronic LLE ulcer #Bilateral chronic venous stasis #ESRD on HD (M/W/F) #Chronic anemia, likely secondary to ESRD, in setting of chronic leg ulcers #Chronic thrombocytopenia, secondary to ESRD #Hypothyroidism ? Management of above conditions per primary team and other consultants ----- Plan discussed with attending physician Dr. Akua Quezada MD PGY-1 Internal Medicine Attending Provider Attestation/Addendum I have personally seen and examined the patient separately on the above date of service and discussed the plan of care with the resident. I reviewed the resident Dr. Rogelio Quezada consultation progress note and agree with the resident findings and plan in the note above and have also edited the documentation to reflect my findings and plan. Juan Fatima M.D. Interventional Cardiology
[2025-01-04 13:21] LABS: Lactate (Lactic Acid) 2.2 mMol/L (0.4-2.0)
--- NOTE | 2025-01-04 14:27 | PD.IDPROG ---
Subjective Subjective Interval history: apparent rash with vanco noted. rx was empirical anyway. Exam Vital Signs Temp Pulse Resp BP Pulse Ox O2 Del Method O2 Flow Rate 98.8 F 83 18 85/45 L 92 L Room Air 2 01/04/25 12:00 01/04/25 12:00 01/04/25 12:00 01/04/25 12:00 01/04/25 12:00 01/04/25 12:00 01/02/25 12:38 Narrative Exam ok to finish rx with rocephin as rx was empirical anyway. home at your discretion Objective - Internal Medicine Labs 01/04/25 09:32 01/04/25 09:33 Labs: Laboratory Results - last 24 hr 01/02/25 01/04/25 01/04/25 07:52 05:05 09:32 WBC 3.9 4.7 RBC 2.63 L 2.57 L Hgb 8.2 L 8.1 L Hct 23.9 L 23.7 L MCV 91 92 MCH 31.2 31.5 MCHC 34.3 34.2 RDW Std Deviation 56.3 H 57.5 H Plt Count 39 L 38 L Neut % (Auto) 84 H 84 H Lymph % (Auto) [address] [place] % (Auto) 4 4 Eos % (Auto) 4 4 Baso % (Auto) 0 0 Neut # (Auto) 3.2 3.9 Lymph # (Auto) 0.[address] [place] # (Auto) 0.2 0.2 Eos # (Auto) 0.1 0.2 Baso # (Auto) 0.0 0.0 Immature Gran # (Auto) 0.02 H 0.04 H Absolute Nucleated RBC 0.02 H 0.00 Immature Gran % 1 H 1 H Nucleated RBC % 1 H 0 PT 15.4 H INR 1.4 H APTT 36.3 H Sodium 130 L Potassium 4.1 D Chloride 93 L Carbon Dioxide 28.0 Anion Gap 9 BUN 46 H Creatinine 6.8 H* D Estim Creat Clear Calc 17.4 L eGFR 9 L* BUN/Creatinine Ratio 7 L Glucose 84 Calculated Osmolality 271 L Lactic Acid Calcium 9.4 Corrected Calcium 10.5 H Phosphorus 2.9 Magnesium 1.8 Total Bilirubin 5.5 H D Direct Bilirubin AST 47 H ALT 79 H Alkaline Phosphatase 539 H Troponin I B-Natriuretic Peptide Total Protein 5.3 L Albumin 2.6 L Globulin 2.7 Albumin/Globulin Ratio 1.0 L Procalcitonin Random Vancomycin 18.9 Misc Test Result Platelets confirmed Platelets confirmed Blood Type O Positive Antibody Screen POSITIVE Antibody Identification Cold Antibody Crossmatch See Detail Blood Bank Wristband ID Yes 01/04/25 01/04/25 09:33 13:02 WBC RBC Hgb Hct MCV MCH MCHC RDW Std Deviation Plt Count Neut % (Auto) Lymph % (Auto) [place] % (Auto) Eos % (Auto) Baso % (Auto) Neut # (Auto) Lymph # (Auto) [place] # (Auto) Eos # (Auto) Baso # (Auto) Immature Gran # (Auto) Absolute Nucleated RBC Immature Gran % Nucleated RBC % PT INR APTT Sodium 130 L Potassium 3.6 D Chloride 94 L Carbon Dioxide 26.2 Anion Gap 10 BUN 49 H Creatinine 7.0 H* Estim Creat Clear Calc 16.9 L eGFR 8 L* BUN/Creatinine Ratio 7 L Glucose 111 H Calculated Osmolality 274 L Lactic Acid 2.6 H 2.2 H Calcium 9.0 Corrected Calcium 10.1 Phosphorus Magnesium Total Bilirubin 5.8 H Direct Bilirubin 4.1 H AST 46 H ALT 72 H Alkaline Phosphatase 513 H D Troponin I < 0.020 B-Natriuretic Peptide 161 H Total Protein 5.1 L Albumin 2.6 L Globulin 2.5 Albumin/Globulin Ratio 1.0 L Procalcitonin 7.95 H Random Vancomycin Misc Test Result Blood Type Antibody Screen Antibody Identification Crossmatch Blood Bank Wristband ID Assessment & Plan A&P Narrative osteo on imaging ckd 5 on hd, cause of ckd per renal no bacteremia hypothyroid ok for ancef , 1 gm daily in house or 2 gm with hd overall for 6 weeks from initiation weekly cbc, renal panel, esr while on iv rx. access likely needs to stay in for hd and with no bacteremia, that is ok with me f/u with others. I can not see him in clinic. Time Spent With Patient Time: Total time spent is greater than 50% in coordination of care (as documented) at patient's floor/unit and/or counseling patient:
[2025-01-04 16:16] LABS: Reflex Lactate? Y
--- NOTE | 2025-01-04 16:23 | ESPR_ITS ---
<Statement entered by Christopher Cooper MD - 01/05/25 07:46> Senior Resident Attestation: I supervised/discussed management plan with photo intern physician Dr. Gallo, and was involved in the care of this patient. I personally saw and examined the patient and discussed the assessment and plan with the entire medicine team, including my attending. I agree with the assessment and plan as documented. Patient had rapid response due to hypotension, was started on midodrine and underwent hemodialysis without events. Will continue current management and closely monitor his blood pressure. Pending a.m. cortisol. Patient's care was discussed with attending physician, Dr. Lauren. Christopher Cooper MD PGY-2. Documentation for date of: 01/04/25 Subjective Subjective Interval history: Patient is seen and examined at bedside. No acute overnight events. Around 7:23 AM, rapid response was called on patient in view of hypotension for which patient was given 1 L bolus of NS, midodrine 10 Mg, repeat CBC, CMP, procalcitonin lactate was ordered. Patient was found to have erythema and rash throughout the body, likely due to worsening thrombocytopenia Noted moderate itchiness at the site of fistula for which Doppler ultrasound of left upper extremity was ordered Vancomycin was stopped in view of suspicion of red man syndrome as per Dr. Cotton's recommendation Patient was found to have uptrending bilirubin, for which CT abdomen/pelvis was ordered, will follow-up for the results A dose of Decadron 8 Mg IV was given in view of suspicion of adrenal insufficiency as patient had history of topical hydrocortisone usage from a long time Exam Vital Signs Temp Pulse Resp BP Pulse Ox O2 Del Method O2 Flow Rate 98.8 F 83 18 90/45 L 92 L Room Air 2 01/04/25 12:00 01/04/25 14:53 01/04/25 12:00 01/04/25 14:53 01/04/25 12:00 01/04/25 12:00 01/02/25 12:38 Narrative Exam General: Awake. HEENT: Normocephalic, atraumatic, mucous membranes moist. Heart: Regular rate and rhythm, no murmurs. Lungs: Clear to auscultation with no wheezing or crackles. Abdomen: Soft, nondistended, nontender, positive bowel sounds. ?No guarding or rebound tenderness. Neurologic: Alert and oriented x3, no gross neurological deficit, and patient able to move all 4 extremities. Extremities: Bilateral chronic venous stasis. Chronic ulcer with necrotic patch of approximately 5 x 10 x 7 cm noted on the anterior expected of left lower leg, ulceration noted on the lateral side of the leg, induration noted in the entire left lower extremity. AV fistula on left upper extremity, noted reddish discoloration at the site Skin: Diffuse papular rash with erythema, itching was noted on lower extremities, abdomen and back Objective Labs 01/05/25 04:16 01/05/25 04:16 Labs: Laboratory Results - last 24 hr 01/02/25 01/04/25 01/04/25 07:52 05:05 09:32 WBC 3.9 4.7 RBC 2.63 L 2.57 L Hgb 8.2 L 8.1 L Hct 23.9 L 23.7 L MCV 91 92 MCH 31.2 31.5 MCHC 34.3 34.2 RDW Std Deviation 56.3 H 57.5 H Plt Count 39 L 38 L Neut % (Auto) 84 H 84 H Lymph % (Auto) 8 L 6 L Metcalfe % (Auto) 4 4 Eos % (Auto) 4 4 Baso % (Auto) 0 0 Neut # (Auto) 3.2 3.9 Lymph # (Auto) 0.3 L 0.3 L Metcalfe # (Auto) 0.2 0.2 Eos # (Auto) 0.1 0.2 Baso # (Auto) 0.0 0.0 Immature Gran # (Auto) 0.02 H 0.04 H Absolute Nucleated RBC 0.02 H 0.00 Immature Gran % 1 H 1 H Nucleated RBC % 1 H 0 PT 15.4 H INR 1.4 H APTT 36.3 H Sodium 130 L Potassium 4.1 D Chloride 93 L Carbon Dioxide 28.0 Anion Gap 9 BUN 46 H Creatinine 6.8 H* D Estim Creat Clear Calc 17.4 L eGFR 9 L* BUN/Creatinine Ratio 7 L Glucose 84 Calculated Osmolality 271 L Lactic Acid Calcium 9.4 Corrected Calcium 10.5 H Phosphorus 2.9 Magnesium 1.8 Total Bilirubin 5.5 H D Direct Bilirubin AST 47 H ALT 79 H Alkaline Phosphatase 539 H Troponin I B-Natriuretic Peptide Total Protein 5.3 L Albumin 2.6 L Globulin 2.7 Albumin/Globulin Ratio 1.0 L Procalcitonin Random Vancomycin 18.9 Misc Test Result Platelets confirmed Platelets confirmed Blood Type O Positive Antibody Screen POSITIVE Antibody Identification Cold Antibody Crossmatch See Detail Blood Bank Wristband ID Yes 01/04/25 01/04/25 09:33 13:02 WBC RBC Hgb Hct MCV MCH MCHC RDW Std Deviation Plt Count Neut % (Auto) Lymph % (Auto) Metcalfe % (Auto) Eos % (Auto) Baso % (Auto) Neut # (Auto) Lymph # (Auto) Metcalfe # (Auto) Eos # (Auto) Baso # (Auto) Immature Gran # (Auto) Absolute Nucleated RBC Immature Gran % Nucleated RBC % PT INR APTT Sodium 130 L Potassium 3.6 D Chloride 94 L Carbon Dioxide 26.2 Anion Gap 10 BUN 49 H Creatinine 7.0 H* Estim Creat Clear Calc 16.9 L eGFR 8 L* BUN/Creatinine Ratio 7 L Glucose 111 H Calculated Osmolality 274 L Lactic Acid 2.6 H 2.2 H Calcium 9.0 Corrected Calcium 10.1 Phosphorus Magnesium Total Bilirubin 5.8 H Direct Bilirubin 4.1 H AST 46 H ALT 72 H Alkaline Phosphatase 513 H D Troponin I < 0.020 B-Natriuretic Peptide 161 H Total Protein 5.1 L Albumin 2.6 L Globulin 2.5 Albumin/Globulin Ratio 1.0 L Procalcitonin 7.95 H Random Vancomycin Misc Test Result Blood Type Antibody Screen Antibody Identification Crossmatch Blood Bank Wristband ID Quality Measures Quality Measures none Assessment & Plan Assessment Current Active Medications: Generic Name Dose Route Start Last Admin Trade Name Freq PRN Reason Stop Dose Admin Acetaminophen 650 mg 12/31/24 09:07 Acetaminophen 325 Mg Tablet PO 01/29/25 18:29 Q6H PRN Fever >100.3 Dextrose 25 ml 12/31/24 02:53 01/04/25 06:42 Dextrose 50%-Water Inj 50 Ml Syringe IV 01/30/25 02:52 25 ml Q15MIN PRN Administration BG 50-70 responsive npo pt Dextrose 50 ml 12/31/24 02:53 Dextrose 50%-Water Inj 50 Ml Syringe IV 01/30/25 02:52 Q15MIN PRN BG <50 OR BG <70 & pt unresponsive Diphenhydramine HCl 25 mg 01/01/25 10:59 01/04/25 11:49 Diphenhydramine 25 Mg Capsule PO 01/31/25 10:58 25 mg Q6HR PRN Administration ITCHING Glucagon 1 mg 12/31/24 02:53 Glucagon Inj 1 Mg Vial IM Q15MIN PRN BG <70, and no IV access Hydromorphone HCl 1 mg 12/30/24 18:30 Hydromorphone Inj 2 Mg/Ml Vial IVP 01/04/25 18:29 Q4H PRN Pain 7 - 10 Dextrose 1,000 mls @ 30 mls/hr 01/02/25 21:00 01/04/25 05:27 D5w IV 02/01/25 20:59 30 mls/hr .Q24H MARIANO Administration Ceftriaxone Sodium/Dextrose 2 gm in 50 mls @ 100 mls/hr 01/04/25 17:00 Rocephin/D5w 2gm IV 01/04/25 17:29 X1 ONE Levothyroxine Sodium 112 mcg 12/31/24 06:00 01/04/25 06:41 Levothyroxine Sodium 112 Mcg Tablet PO 01/30/25 05:59 112 mcg ACBR MARIANO Administration Midodrine 10 mg 01/04/25 14:30 01/04/25 14:53 Midodrine 5 Mg Tablet PO 02/03/25 14:29 10 mg TID MARIANO Administration Ondansetron HCl 4 mg 12/30/24 18:30 Ondansetron Inj 2 Mg/Ml Inj 2 Ml IV 01/29/25 18:29 Q6H PRN NAUSEA OR VOMITING Protocol Vitamin B Complex/Vit C/Folic Acid 1 tab 12/31/24 09:00 01/04/25 10:06 Vit B12/Vit C/Fa (Nephrovite) Tablet PO 01/30/25 08:59 1 tab QDAY MARIANO Administration Plan A 59-year-old male with significant past medical history of hypothyroidism, chronic left lower extremity ulcer with dermatitis, ESRD on HD [M/W/F] since [address] Cotton, bilateral chronic venous stasis, chronic anemia since 2 years on PRBC transfusion once in every 2 weeks presented to the hospital with chief complaints of generalized weakness, worsening of chronic ulcer on left lower extremity since 3 days and admitted for left lower extremity cellulitis with chronic ulcer # Hypotension # Suspicion of adrenal insufficiency - Patient was found to have hypotension and hypoglycemia since 01/02/2025 - Despite being on dextrose, patient found to have mild hypoglycemic episodes - Patient had history of topical hydrocortisone usage for a long time Plan - A dose of dexamethasone 8 Mg IV is given - 8 AM serum free cortisol is ordered - Started on midodrine 10 Mg p.o. 3 times daily # Hyperbilirubinemia # Transaminitis - Patient's LFTs within normal limits during the hospital admission - Patient was found to have hypoglycemia yesterday night around blood glucose of 60 for which discharge was held - Labs during this morning showed total bilirubin of 2.9, AST 128, ALT 115, ALP 556 - Ultrasound abdomen is ordered, did not show any significant pathology Plan - CT abdomen/pelvis was ordered in view of continuous uptrending total bilirubin, revealed hepatosplenomegaly - MRCP was ordered to look for any obstructive causes of jaundice # Chronic osteomyelitis of left lower extremity # Left lower extremity cellulitis superimposed on # chronic Left lower extremity ulcer. # Bilateral chronic venous stasis. -Patient had history of lower extremity infection 11 years ago following which patient ended up on dialysis due to severe cellulitis. -Patient endorsed that later the infection resolved leaving chronic venous stasis. -Reported that since 2 years, patient had chronic dermatitis with left lower extremity ulcer and is following wound care on and off. -Vitals are stable at the time of admission. -Labs showed WBC 5.9, Hb 6.9, platelets 85, sodium 132, chloride 93, BUN 38, creatinine 7.2, lactate 1.9, procalcitonin 2.17. -Consulted general surgery Dr Lozano, appreciate recommendations. 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 cotton -Referral to wound care done. -IV Dilaudid as needed for pain. -CT of left lower extremity without contrast is done that showed mild chronic osteomyelitis of anterior tibial shaft -Dr Melissa was consulted and he recommended to continue antibiotics for osteomyelitis for 6 weeks and patient can get antibiotics during his dialysis sessions -Informed Dr. Cotton about the antibiotics for 6 weeks, till 11 Feb 2025 # Bigeminy - EKG showed bigeminy - Potassium and magnesium are within normal limits - Brine Tank Separator Operator Dr. Fatima was consulted, will appreciate his recommendations # ESRD on HD [M/W/F]. -Patient is on hemodialysis since 11 years. -Patient had AV fistula on left upper extremity. -Patient is still able to make some amount of urine. -Patient reported that he was trying to get onto transplant list, he was rejected once as he is having overweight. -Patient missed dialysis on 12/30/2024 due to generalized weakness and got admitted into the hospital. Plan: -Dr. Cotton is consulted, will appreciate her recommendations. -HD as per his routine dialysis schedule -Patient is supposed to get his dialysis session on 01/04/2025, held in view of low blood pressures -Nephro-Martín. -Avoid nephrotoxic and renally dose medications. # Chronic anemia, likely secondary to ESRD, in setting of chronic leg ulcers. # Chronic Thrombocytopenia, secondary to ESRD. -Patient reported that he is having anemia since 2 years and receiving blood transfusions once in every 2 weeks in the ED. -Bone marrow biopsy was done and it did not show any significant pathology due to inadequate sample. Plan: - PRBC transfusion(4 total since admission). - Post's pain transfusion H&H. - No evidence of bleeding. # Hypothyroidism. -Patient is using 112 mcg of levothyroxine. Plan: -Resumed his home levothyroxine. Hospital Maintenance: Dispo: Tele DVT ppx: Held for now in view of anemia and thrombocytopenia. GI ppx: Not needed as of now. Diet: Renal. IV lines: Peripheral. Code status: Full code. Patient plan of care was discussed with the attending physician, Dr. Lauren and senior resident Dr. Kenneth Gallo, PGY1 Attending Provider Attestation/Addendum Karen, Kimberly Lauren, DO, attest that I was physically present for the altamirano portions of the service and evaluated the patient with the resident and I reviewed and discussed the case with the resident and agree with the resident's findings and plans of care as documented above Patient seen and evaluated this AM. Patient noted to be hypoglycemic this morning and rapid response was called due to hypotension. Will start patient on midodine. Case discussed with nephrology, patient has had chronic dry skin due to lack of hydration, but generalized rash is new. Suspect drug rash due to vancomycin which was discontinued. Patient states he uses hydrocortisone cream once a week for a rash in his buttock, low suspicion for withdrawal rash. However, due to hypoglycemia and low BP, concern for possibly adrenal insufficiency. Will obtain AM cortisol and give one dose of decadron. Bilirubin uptrending, concern for choledocholithiasis. Will obtain MRCP to rule out biliary obstruction.
[2025-01-04] MEDS: cefTRIAXone/D5w 2gm 2 GM/50 ML BAG IV (16:48)
[2025-01-04] MEDS: DEXAMETHASONE SOD PHOS INJ 4 MG/ML VIAL 8 MG IVP (16:48)
[2025-01-04 17:50] LABS: Lactic Acid, 3 HR 2.2 mMol/L (0.4-2.0)
[2025-01-04 18:39] LABS: Hepatitis A Antibody IgM Non Reactive (Non React); Hepatitis B Core Antibody IgM Non Reactive (Non React); Hepatitis B Surface Ab NonReact(Not Immune) (Immune); Hepatitis B Surface Antigen Non Reactive (Non React); Hepatitis C Antibody Non Reactive (Non React)
--- NOTE | 2025-01-04 20:51 | PC.NURSE ---
need specimen for urinalysis- Pt refused in and out cath. Per pt does not have urine to collect. Bladder scan done=56ml. Per pt will call staff if pt has the urge to pee.
--- NOTE | 2025-01-04 21:04 | PC.NURSE ---
pt refused fall risk armband, I don't get up, I'm not a fall lrisk.
[2025-01-05] VITALS (31 sets, daily range): BP systolic 92–122; BP diastolic 42–71; PULSE 56–86; RESP 16–20; TEMP 36.2–36.6; O2SAT 90–99
--- NOTE | 2025-01-05 01:22 | PC.NURSE ---
89% O2 sat on room air- Applied O2 inh on at 2L/min/nc with 94% O2 sat.
[2025-01-05] MEDS: DiphenhydrAMINE 25 MG CAPSULE PO ×2 (03:15→23:51)
[2025-01-05] MEDS: ACETAMINOPHEN 325 MG TABLET 650 MG PO (03:15)
[2025-01-05] MEDS: MIDODRINE 5 MG TABLET 10 MG PO ×3 (06:04→21:00)
[2025-01-05] MEDS: LEVOTHYROXINE SODIUM 112 MCG TABLET PO (06:05)
[2025-01-05 06:12] LABS: Basophils % (Auto) 0 % (0-2.5); Eosinophils # (Auto) 0.2 Thou/mm3 (0.0-0.5); Eosinophils % (Auto) 3 % (0-10); Hematocrit 25.5 % (41.0-53.0); Immature Granulocytes % (Auto) 1 % (0-0); Immature Granulocytes Auto 0.07 Thou/mm3 (0.00-0.00); Lymphocytes # (Auto) 0.4 Thou/mm3 (1.0-4.8); Lymphocytes % (Auto) 6 % (10-50); Mean Corpuscular HGB Conc 33.7 g/dl (31.0-37.0); Mean Corpuscular Hemoglobin 31.2 pg (25.0-35.0); Mean Corpuscular Volume 92 fL (80-100); Monocytes # (Auto) 0.2 Thou/mm3 (0.0-0.8); Monocytes % (Auto) 3 % (0-12); Neutrophils # (Auto) 5.5 Thou/mm3 (1.8-7.7); Neutrophils % (Auto) 86 % (37-80); Nucleated Red Blood Cell % 0 /100 WBC (0); RDW Standard Deviation 56.3 fL (35.1-43.9); Red Blood Count 2.76 Miln/mm3 (4.50-5.90); White Blood Count 6.4 Thou/mm3 (3.8-10.6)
[2025-01-05 06:14] LABS: Hemoglobin 8.6 g/dL (13.5-16.0); Platelet Count 47 Thou/mm3 (140-440); Slide Review Platelets confirmed
[2025-01-05 06:39] LABS: Parathyroid Hormone Intact 368.1 pg/ml (18.5-88.0)
[2025-01-05 06:41] LABS: Alanine Aminotransferase 62 U/L (10-49); Albumin, Serum 2.8 gm/dL (3.5-5.0); Alkaline Phosphatase 502 U/L (46-116); Anion Gap 12 (7-16); Aspartate Amino Transferase 37 U/L (0-34); BUN/Creatinine Ratio 8 Ratio (12-20); Bilirubin,Total 6.1 mg/dL (0.3-1.2); Blood Urea Nitrogen 59 mg/dL (9-23); Calcium 9.8 mg/dL (8.3-10.6); Calcium (Corrected) 10.8 mg/dL (8.5-10.1); Carbon Dioxide 24.3 mMol/L (20.0-31.0); Chloride 93 mMol/L (98-107); Creatinine (Component) 7.8 mg/dL (0.6-1.3); Estimated Creatinine Clearance 15.2 mL/min (>60); Globulin 2.8 gm/dL (2.3-3.5); Glucose 128 mg/dL (74-106); Magnesium 2.1 mg/dL (1.6-2.6); Osmolality,Calculated 277 (275-295); Potassium 4.3 mMol/L (3.4-5.1); Sodium 129 mMol/L (136-145); Total Protein 5.6 gm/dL (5.7-8.2); Vancomycin,Random 15.4 mcg/mL; eGFR 7 See Note
[2025-01-05 07:53] LABS: INR 1.3 (0.9-1.3); Partial Thromboplastin Time 37.1 Seconds (22.0-36.0); Prothrombin Time 13.7 Seconds (9.0-12.2)
[2025-01-05] MEDS: ALBUMIN HUMAN 25% IVPB 25 GM/100 ML BTL IV (08:46)
--- NOTE | 2025-01-05 08:49 | PC.NURSE ---
bp low, pt denies all complaints. will Admin prn albumin and cont. to monitor
[2025-01-05 09:03] LABS: Bilirubin,Direct 3.7 mg/dL (0.0-0.3)
--- NOTE | 2025-01-05 09:16 | PC.NURSE ---
bp low pt denies all complaints, uf goal lowered to 1.5l as tolerated will cont. to monitor
--- NOTE | 2025-01-05 09:17 | ESPR_ITS ---
Documentation for date of: 01/05/25 Subjective Subjective Interval history: No acute overnight events noted. Seen and examined at bedside in dialysis unit just prior to starting HD. States that he does not have any complaints at this time, including shortness of breath, chest discomfort, palpitations, or lightheadedness. Blood pressure on soft side at 105/56 with widened pulse pressure noted, otherwise vital signs stable. Hemoglobin 8.6 and stable, Na 129, K 4.3, Mg 2.1, BUN 59, Cr 7.8, t bili 6.1, direct bili 3.7, AST 37, ALT 62, ALP 502, albumin 2.8, PTH 368. Exam Vital Signs Temp Pulse Resp BP Pulse Ox O2 Del Method O2 Flow Rate 97.8 F 64 18 100/59 L 92 L Room Air 2 01/05/25 08:39 01/05/25 09:15 01/05/25 08:39 01/05/25 09:15 01/05/25 08:39 01/05/25 07:49 01/05/25 04:00 Narrative Exam General: AOx3, no acute distress, disheveled, able to speak full sentences HEENT: NC/AT, mucous membranes moist, bilateral sclera anicteric Cardiovascular: bigeminy rhythm appreciated, S1/S2 present, no murmurs appreciated Pulmonary: clear to auscultation bilaterally, no rales/rhonchi/wheezes Abdominal: soft, non-tender, non-distended, no rebound/guarding, normal bowel sounds present Musculoskeletal: LLE bandaged and more swollen than RLE Skin: bilateral chronic venous stasis, AV fistula in LUE Neuro: CN II-XII intact, no focal deficits Objective Labs 01/06/25 04:12 01/06/25 04:12 Labs: Laboratory Results - last 24 hr 01/02/25 01/04/25 01/04/25 07:52 05:05 09:32 WBC 4.7 RBC 2.57 L Hgb 8.1 L Hct 23.7 L MCV 92 MCH 31.5 MCHC 34.2 RDW Std Deviation 57.5 H Plt Count 38 L Neut % (Auto) 84 H Lymph % (Auto) 6 L Payne % (Auto) 4 Eos % (Auto) 4 Baso % (Auto) 0 Neut # (Auto) 3.9 Lymph # (Auto) 0.3 L Payne # (Auto) 0.2 Eos # (Auto) 0.2 Baso # (Auto) 0.0 Immature Gran # (Auto) 0.04 H Absolute Nucleated RBC 0.00 Immature Gran % 1 H Nucleated RBC % 0 PT 15.4 H INR 1.4 H APTT 36.3 H Sodium Potassium Chloride Carbon Dioxide Anion Gap BUN Creatinine Estim Creat Clear Calc eGFR BUN/Creatinine Ratio Glucose Calculated Osmolality Lactic Acid Calcium Corrected Calcium Phosphorus Magnesium Total Bilirubin Direct Bilirubin AST ALT Alkaline Phosphatase Troponin I B-Natriuretic Peptide Total Protein Albumin Globulin Albumin/Globulin Ratio Procalcitonin PTH Intact Random Vancomycin Hepatitis A IgM Ab Hep Bs Antigen Hep Bs Antibody Hep B Core IgM Ab Hepatitis C Antibody Misc Test Result Platelets confirmed Platelets confirmed Crossmatch See Detail 01/04/25 01/04/25 01/04/25 09:33 13:02 17:29 WBC RBC Hgb Hct MCV MCH MCHC RDW Std Deviation Plt Count Neut % (Auto) Lymph % (Auto) Payne % (Auto) Eos % (Auto) Baso % (Auto) Neut # (Auto) Lymph # (Auto) Payne # (Auto) Eos # (Auto) Baso # (Auto) Immature Gran # (Auto) Absolute Nucleated RBC Immature Gran % Nucleated RBC % PT INR APTT Sodium 130 L Potassium 3.6 D Chloride 94 L Carbon Dioxide 26.2 Anion Gap 10 BUN 49 H Creatinine 7.0 H* Estim Creat Clear Calc 16.9 L eGFR 8 L* BUN/Creatinine Ratio 7 L Glucose 111 H Calculated Osmolality 274 L Lactic Acid 2.6 H 2.2 H 2.2 H Calcium 9.0 Corrected Calcium 10.1 Phosphorus Magnesium Total Bilirubin 5.8 H Direct Bilirubin 4.1 H AST 46 H ALT 72 H Alkaline Phosphatase 513 H D Troponin I < 0.020 B-Natriuretic Peptide 161 H Total Protein 5.1 L Albumin 2.6 L Globulin 2.5 Albumin/Globulin Ratio 1.0 L Procalcitonin 7.95 H PTH Intact Random Vancomycin Hepatitis A IgM Ab Non Reactive Hep Bs Antigen Non Reactive Hep Bs Antibody NonReact(Not Immune) L Hep B Core IgM Ab Non Reactive Hepatitis C Antibody Non Reactive Misc Test Result Crossmatch 01/05/25 01/05/25 01/05/25 04:15 04:16 08:00 WBC 6.4 RBC 2.76 L Hgb 8.6 L Hct 25.5 L MCV 92 MCH 31.2 MCHC 33.7 RDW Std Deviation 56.3 H Plt Count 47 L D Neut % (Auto) 86 H Lymph % (Auto) 6 L Payne % (Auto) 3 Eos % (Auto) 3 Baso % (Auto) 0 Neut # (Auto) 5.5 Lymph # (Auto) 0.4 L Payne # (Auto) 0.2 Eos # (Auto) 0.2 Baso # (Auto) 0.0 Immature Gran # (Auto) 0.07 H Absolute Nucleated RBC 0.00 Immature Gran % 1 H Nucleated RBC % 0 PT 13.7 H INR 1.3 APTT 37.1 H Sodium 129 L Potassium 4.3 D Chloride 93 L Carbon Dioxide 24.3 Anion Gap 12 BUN 59 H Creatinine 7.8 H* D Estim Creat Clear Calc 15.2 L eGFR 7 L* BUN/Creatinine Ratio 8 L Glucose 128 H Calculated Osmolality 277 Lactic Acid Calcium 9.8 Corrected Calcium 10.8 H Phosphorus 4.0 Magnesium 2.1 Total Bilirubin 6.1 H Direct Bilirubin 3.7 H AST 37 H ALT 62 H Alkaline Phosphatase 502 H Troponin I B-Natriuretic Peptide Total Protein 5.6 L Albumin 2.8 L Globulin 2.8 Albumin/Globulin Ratio 1.0 L Procalcitonin PTH Intact 368.1 H Random Vancomycin 15.4 Hepatitis A IgM Ab Hep Bs Antigen Hep Bs Antibody Hep B Core IgM Ab Hepatitis C Antibody Misc Test Result Platelets confirmed Crossmatch Quality Measures Quality Measures none Assessment & Plan Assessment Current Active Medications: Generic Name Dose Route Start Last Admin Trade Name Freq PRN Reason Stop Dose Admin Acetaminophen 650 mg 12/31/24 09:07 01/05/25 03:15 Acetaminophen 325 Mg Tablet PO 01/29/25 18:29 650 mg Q6H PRN Administration Fever >100.3 Dextrose 25 ml 12/31/24 02:53 01/04/25 06:42 Dextrose 50%-Water Inj 50 Ml Syringe IV 01/30/25 02:52 25 ml Q15MIN PRN Administration BG 50-70 responsive npo pt Dextrose 50 ml 12/31/24 02:53 Dextrose 50%-Water Inj 50 Ml Syringe IV 01/30/25 02:52 Q15MIN PRN BG <50 OR BG <70 & pt unresponsive Diphenhydramine HCl 25 mg 01/01/25 10:59 01/05/25 03:15 Diphenhydramine 25 Mg Capsule PO 01/31/25 10:58 25 mg Q6HR PRN Administration ITCHING Epoetin Leonard 10,000 unit 01/05/25 11:30 Epoetin Leonard Inj 1,000 Unit/0.05 Ml Unit SC 01/05/25 11:31 X1 ONE Glucagon 1 mg 12/31/24 02:53 Glucagon Inj 1 Mg Vial IM Q15MIN PRN BG <70, and no IV access Albumin Human 25 gm in 100 mls @ 100 mls/min 01/05/25 08:00 01/05/25 08:46 Albuminar-25 Ivpb IV 100 mls/min PRN PRN Administration DIALYSIS Levothyroxine Sodium 112 mcg 12/31/24 06:00 01/05/25 06:05 Levothyroxine Sodium 112 Mcg Tablet PO 01/30/25 05:59 112 mcg ACBR MARIANO Administration Midodrine 10 mg 01/04/25 14:30 01/05/25 06:04 Midodrine 5 Mg Tablet PO 02/03/25 14:29 10 mg TID MARIANO Administration Ondansetron HCl 4 mg 12/30/24 18:30 Ondansetron Inj 2 Mg/Ml Inj 2 Ml IV 01/29/25 18:29 Q6H PRN NAUSEA OR VOMITING Protocol Vitamin B Complex/Vit C/Folic Acid 1 tab 12/31/24 09:00 01/05/25 08:44 Vit B12/Vit C/Fa (Nephrovite) Tablet PO 01/30/25 08:59 Not Given QDAY MARIANO Plan Sincere Weaver is a 59-year-old male with a past medical history of hypothyroidism, chronic left lower extremity dermatitis, ESRD on HD (M/W/F) following Dr. Cotton, chronic anemia secondary to CKD who was admitted on 12/30 for chronic osteomyelitis of the anterior tibial shaft for which he is to continue IV antibiotics for 6 weeks. He was planned for discharge but was found to be hypoglycemic and repeat EKG showed bigeminy with PACs vs MAT vs 2nd degree heart block for which cardiology was consulted. #EKG with bigeminy with PACs vs MAT vs 2nd degree heart block EKG on 01/03 shows bigeminy and normal sinus rhythm, but with at least two different P-wave morphologies, easiest to see in V1 with noted prolonged AR interval of 250. Upon further evaluation of lead II, every other R-R interval marches out regularly with at least two different P-wave morphologies seen, suggestive of an atrial foci in addition to the ROACH. Possible to have MAT, but patient is not tachycardic. 2nd degree heart block unlikely as each P wave is associated with QRS complex and no dropped beats noted. ? Follow-up cardiac echo to evaluate for possible LA enlargement #Hyperbilirubinemia #Transaminitis #Chronic osteomyelitis of left lower extremity #Chronic LLE ulcer #Bilateral chronic venous stasis #ESRD on HD (M/W/F) #Chronic anemia, likely secondary to ESRD, in setting of chronic leg ulcers #Chronic thrombocytopenia, secondary to ESRD #Hypothyroidism ? Management of above conditions per primary team and other consultants ----- Plan discussed with attending physician Dr. Akua Quezada MD PGY-1 Internal Medicine Attending Provider Attestation/Addendum I have personally seen and examined the patient separately on the above date of service and discussed the plan of care with the resident. I reviewed the resident Dr. Rogelio Quezada consultation progress note and agree with the resident findings and plan in the note above and have also edited the documentation to reflect my findings and plan. Juan Fatima M.D. Interventional Cardiology
--- NOTE | 2025-01-05 09:34 | PC.NURSE ---
bp low pt denies all complaints, uf goal lowered to 1L as tolerated.
--- NOTE | 2025-01-05 10:01 | PC.NURSE ---
bp trending up,pt cont's. to deny all complaints, ugfgoal increased to 1.3l as tolerated will monitor
--- NOTE | 2025-01-05 10:57 | ESPR_ITS ---
Documentation for date of: 01/05/25 Subjective Subjective Interval history: Mr. Weaver is a 59-year-old male with a known history of ESRD on hemodialysis (HD) thrice weekly (Thursday/Thursday/Thursday), under the care of Dr. Cotton for the past 11 years. He presented to the ED with generalized weakness and worsening of a chronic left lower extremity ulcer, which has been present for approximately 2.5 years. He reports being at baseline until 3 days ago, when he began experiencing generalized weakness without associated fever, nausea, or vomiting. He endorses that he scratched his left leg, which led to an ulcerative lesion at the site. The patient states he has been intermittently seen by wound care and has been managing the wound at home with antiseptics. He also reports chronic venous stasis for over 8 years with progressive worsening of the ulcer over the past 2 years. He previously attempted evaluation for renal transplantation but was not listed due to elevated body weight. The patient missed his most recent dialysis session scheduled for 12/30/2024 due to worsening weakness. His last dialysis session was on 12/28/2024. Initial vitals: BP 104/52 mmHg, HR 78 bpm, RR 20/min, Temp 98.2?F, SpO? 100% on room air Laboratory results: Sodium 134, potassium 4.4, chloride 94, BUN 46, creatinine 8.1, EGFR 7, TIBC 99, iron saturation 71, CRP 13.3, Pro-Calc 2.17, WBC 4.3, Hgb 7.0, PLT 58. Cultures are pending, currently on DILAUDID and ZOSYN. PMHx: ESRD on HD, hypothyroidism, chronic venous stasis, chronic anemia PSHx: Left upper extremity AV fistula placement MEDS: Pending med rec no need for any surgical intervention. Patient wants to follow-up with wound care center. ALLERGIES: Adhesive tape FHx: Not significant SH: Denies tobacco, alcohol or drug use Nephrology was consulted for inpatient hemodialysis. 01/01/2025 patient currently seen in medical floor. Resting comfortably. Still having significant discomfort in the lower extremities. He has a huge ulcers on the left leg. Seen by surgeon-if he is not discharged-he will need dialysis tomorrow. 01/02/2025 examined at bedside. Complaining of lower extremity pain. Bilaterally skin desquamation improved with wound care. CT showed osteomyelitis of the left lower extremity, surgery on board, pending ID recommendation. Advised against central line, contraindicated with HD. Can do ABX thru HD cath. 01/03/2025 Examined at bedside. Reports no new or worsening of symptoms. CR 5.4, BUN 35, EGFR 12. Will do 6 weeks of IV ROCEPHIN and VANCO with HD per ID recs. Complained of recurrent hypoglycemia episodes, recommended DIAZOXIDE PRN on d/c. 01/04/2025 Examined at bedside. Denies fever, chills, headaches, chest pain, sob, cough, GI or urinary symptoms. CR 7.0, BUN 49, GFR 8, sodium 130, chloride 94. Has diffuse erythematous rash on exam, suggestive of red man syndrome following VANCOMYCIN which was discontinued. 01/05/2025 examined at bedside. Complaining of dry mouth likely secondary to BENADRYL IV, rash overall improving, left upper extremity Doppler negative for DVT 24-hour blood culture negative. CT showed cirrhosis with splenomegaly, cholelithiasis, end-stage [place] kidney, atrophic left transplanted kidney. Sodium 129, CR 7.8, BUN 59, GFR 7. Plan for hemodialysis today. Exam Vital Signs Temp Pulse Resp BP Pulse Ox O2 Del Method O2 Flow Rate 97.8 F 61 18 111/46 L 92 L Room Air 2 01/05/25 08:39 01/05/25 10:45 01/05/25 08:39 01/05/25 10:45 01/05/25 08:39 01/05/25 07:49 01/05/25 04:00 Narrative Exam General: Awake. HEENT: Normocephalic, atraumatic, mucous membranes moist. Heart: Regular rate and rhythm, no murmurs. Lungs: Clear to auscultation with no wheezing or crackles. Abdomen: Soft, nondistended, nontender, positive bowel sounds. ?No guarding or rebound tenderness. Neurologic: Alert and oriented x3, no gross neurological deficit, and patient able to move all 4 extremities. Extremities: Bilateral chronic venous stasis. Chronic ulcer with necrotic patch of approximately 5 x 10 x 7 cm noted on the anterior expected of left lower leg, ulceration noted on the lateral side of the leg, induration noted in the entire left lower extremity. Skin: Diffuse erythematous rash improving. Objective Labs 01/06/25 04:12 01/06/25 04:12 Labs: Laboratory Results - last 24 hr 01/02/25 01/04/25 01/04/25 07:52 13:02 17:29 WBC RBC Hgb Hct MCV MCH MCHC RDW Std Deviation Plt Count Neut % (Auto) Lymph % (Auto) [place] % (Auto) Eos % (Auto) Baso % (Auto) Neut # (Auto) Lymph # (Auto) [place] # (Auto) Eos # (Auto) Baso # (Auto) Immature Gran # (Auto) Absolute Nucleated RBC Immature Gran % Nucleated RBC % PT INR APTT Sodium Potassium Chloride Carbon Dioxide Anion Gap BUN Creatinine Estim Creat Clear Calc eGFR BUN/Creatinine Ratio Glucose Calculated Osmolality Lactic Acid 2.2 H 2.2 H Calcium Corrected Calcium Phosphorus Magnesium Total Bilirubin Direct Bilirubin AST ALT Alkaline Phosphatase Total Protein Albumin Globulin Albumin/Globulin Ratio PTH Intact Random Vancomycin Hepatitis A IgM Ab Non Reactive Hep Bs Antigen Non Reactive Hep Bs Antibody NonReact(Not Immune) L Hep B Core IgM Ab Non Reactive Hepatitis C Antibody Non Reactive Misc Test Result Crossmatch See Detail 01/05/25 01/05/25 01/05/25 04:15 04:16 08:00 WBC 6.4 RBC 2.76 L Hgb 8.6 L Hct 25.5 L MCV 92 MCH 31.2 MCHC 33.7 RDW Std Deviation 56.3 H Plt Count 47 L D Neut % (Auto) 86 H Lymph % (Auto) 6 L [place] % (Auto) 3 Eos % (Auto) 3 Baso % (Auto) 0 Neut # (Auto) 5.5 Lymph # (Auto) 0.4 L [place] # (Auto) 0.2 Eos # (Auto) 0.2 Baso # (Auto) 0.0 Immature Gran # (Auto) 0.07 H Absolute Nucleated RBC 0.00 Immature Gran % 1 H Nucleated RBC % 0 PT 13.7 H INR 1.3 APTT 37.1 H Sodium 129 L Potassium 4.3 D Chloride 93 L Carbon Dioxide 24.3 Anion Gap 12 BUN 59 H Creatinine 7.8 H* D Estim Creat Clear Calc 15.2 L eGFR 7 L* BUN/Creatinine Ratio 8 L Glucose 128 H Calculated Osmolality 277 Lactic Acid Calcium 9.8 Corrected Calcium 10.8 H Phosphorus 4.0 Magnesium 2.1 Total Bilirubin 6.1 H Direct Bilirubin 3.7 H AST 37 H ALT 62 H Alkaline Phosphatase 502 H Total Protein 5.6 L Albumin 2.8 L Globulin 2.8 Albumin/Globulin Ratio 1.0 L PTH Intact 368.1 H Random Vancomycin 15.4 Hepatitis A IgM Ab Hep Bs Antigen Hep Bs Antibody Hep B Core IgM Ab Hepatitis C Antibody Misc Test Result Platelets confirmed Crossmatch Quality Measures Quality Measures none Assessment & Plan Assessment Current Active Medications: Generic Name Dose Route Start Last Admin Trade Name Freq PRN Reason Stop Dose Admin Acetaminophen 650 mg 12/31/24 09:07 01/05/25 03:15 Acetaminophen 325 Mg Tablet PO 01/29/25 18:29 650 mg Q6H PRN Administration Fever >100.3 Dextrose 25 ml 12/31/24 02:53 01/04/25 06:42 Dextrose 50%-Water Inj 50 Ml Syringe IV 01/30/25 02:52 25 ml Q15MIN PRN Administration BG 50-70 responsive npo pt Dextrose 50 ml 12/31/24 02:53 Dextrose 50%-Water Inj 50 Ml Syringe IV 01/30/25 02:52 Q15MIN PRN BG <50 OR BG <70 & pt unresponsive Diphenhydramine HCl 25 mg 01/01/25 10:59 01/05/25 03:15 Diphenhydramine 25 Mg Capsule PO 01/31/25 10:58 25 mg Q6HR PRN Administration ITCHING Epoetin Leonard 10,000 unit 01/05/25 11:30 Epoetin Leonard Inj 1,000 Unit/0.05 Ml Unit SC 01/05/25 11:31 X1 ONE Glucagon 1 mg 12/31/24 02:53 Glucagon Inj 1 Mg Vial IM Q15MIN PRN BG <70, and no IV access Albumin Human 25 gm in 100 mls @ 100 mls/min 01/05/25 08:00 01/05/25 08:46 Albuminar-25 Ivpb IV 100 mls/min PRN PRN Administration DIALYSIS Levothyroxine Sodium 112 mcg 12/31/24 06:00 01/05/25 06:05 Levothyroxine Sodium 112 Mcg Tablet PO 01/30/25 05:59 112 mcg ACBR MARIANO Administration Midodrine 10 mg 01/04/25 14:30 01/05/25 06:04 Midodrine 5 Mg Tablet PO 02/03/25 14:29 10 mg TID MARIANO Administration Ondansetron HCl 4 mg 12/30/24 18:30 Ondansetron Inj 2 Mg/Ml Inj 2 Ml IV 01/29/25 18:29 Q6H PRN NAUSEA OR VOMITING Protocol Vitamin B Complex/Vit C/Folic Acid 1 tab 12/31/24 09:00 01/05/25 08:44 Vit B12/Vit C/Fa (Nephrovite) Tablet PO 01/30/25 08:59 Not Given QDAY MARIANO Plan 59-year-old male with PMHx of ESRD HD MWF, hypothyroidism, chronic left lower extremity ulcer, chronic anemia, recurrent GI bleed and biweekly transfusions, presenting with worsening left extremity pain. Admitted for cellulitis of left lower extremity with laceration. Hemodialysis today as tolerated. ESRD HD MWF Anemia of chronic disease Recurrent blood transfusions History of ESRD. Has recurrent GI bleed with biweekly blood transfusions--patient under the care of Dr. Azar and Dr. Ervin from [facility] Sodium 129, CR 7.8, BUN 59, GFR 7. 24-hour blood culture negative. ? Continue HD MWF, no HD today 01/04 ? ABX with HD ? Daily labs Left lower extremity osteomyelitis, cellulitis superimposed on Chronic Left lower extremity ulcer with eschar-no need for surgical intervention per surgeon Bilateral chronic venous stasis. Chronic anemia, likely secondary to ESRD, in setting of chronic leg ulcers. Chronic Thrombocytopenia, secondary to ESRD. Hypothyroidism. ? Managed by primary team ? Avoid VANCOMYCIN, concern for red man syndrome, rash improving Thank you for the opportunity to participate in the patient's care. Case was discussed with attending, Dr. Cotton. Sherine Hinds DO PGYI Attending Provider Attestation/Addendum Patient seen and examined with resident physician Dr. Basurto. Note reviewed, agree with findings and recommendations. Admitted with weakness, significant in left leg ulcers with oozing Patient had a rapid response for low blood pressure. Noted to have significant erythema in the entire body with rash. Suspect red man syndrome. Spoke to Dr. Lauren-given steroid, Benadryl IV. Hold dialysis today. Hold blood transfusion today. Patient with osteomyelitis of the left leg. Will need antibiotics for 6 weeks will be given at the dialysis. 01/05/2025 still with rash Patient currently seen on dialysis. Tolerating dialysis without any problems. AV fistula cannulated. Hemodialysis for 3 hours, 2K, ultrafiltration 2-3 L, Epogen 6000, no heparin ordered. Plan of care discussed with the dialysis nurse. Please see dialysis flowsheet for further details.
--- NOTE | 2025-01-05 11:19 | PC.NURSE ---
bp low, pt denies all complaints, uf goal lowered to 1l as tolerated.
[2025-01-05] MEDS: EPOETIN ALFA INJ 1,000 UNIT/0.05 ML UNIT 10000 UNIT SC (12:02)
--- NOTE | 2025-01-05 13:22 | PD.IMCONS ---
HPI Data of Consult Requesting Physician: Kimberly Lauren DO Primary Care Provider: Shad Cotton MD Consult Narrative History of present illness: Pt is an 59-year-old man who on dialysis and severe infection in his left leg. Had a rise in bili and GI called to evaluate the pt. No sign or symptoms of liver failure. cc:: cc: Kimberly Lauren DO Review of Systems Review of Systems Narrative Review of Systems: 12 systems reviewed and negative Meds Home Medications and Allergies Home Medications ?Medication ?Instructions ?Recorded ?Confirmed ?Type diphenhydramine HCl 25 mg capsule 25 mg PO TID PRN Itching 08/20/22 03/31/24 History (Benadryl) vitamin B comp no.3-folic acid 1 1 tab PO QDAY 08/20/22 03/31/24 History mg-vit C 60 mg-biotin 300 mcg tablet ([facility]) sucroferric oxyhydroxide 500 mg 500 mg PO QID 10/03/22 03/31/24 History chewable tablet (Velphoro) carvedilol 12.5 mg tablet 12.5 mg PO BID 08/04/23 03/31/24 History furosemide 40 mg tablet 40 mg PO QDAY 08/04/23 03/31/24 History levothyroxine 100 mcg tablet 112 mcg PO DAILY 08/04/23 03/31/24 History Allergies Allergy/AdvReac Type Severity Reaction Status Date / Time adhesive tape Allergy Severe Rash Verified 12/08/24 17:07 Exam Vital Signs Temp Pulse Resp BP Pulse Ox O2 Del Method O2 Flow Rate 97.5 F 63 18 107/51 L 96 Room Air 2 01/05/25 12:40 01/05/25 12:40 01/05/25 12:40 01/05/25 12:40 01/05/25 12:40 01/05/25 07:49 01/05/25 04:00 Routine Abdominal Exam Comments: no rebound Results Labs 01/05/25 04:16 01/05/25 04:16 Labs: Short CBC 01/05/25 Range/Units 04:16 WBC 6.4 (3.8-10.6) Thou/mm3 Hgb 8.6 L (13.5-16.0) g/dL Hct 25.5 L (41.0-53.0) % Plt Count 47 L D (140-440) Thou/mm3 BMP 01/05/25 04:16 Sodium 129 L Potassium 4.3 D Chloride 93 L Carbon Dioxide 24.3 BUN 59 H Creatinine 7.8 H* D Glucose 128 H Calcium 9.8 Liver Function 01/05/25 01/05/25 Range/Units 04:16 08:00 Total Bilirubin 6.1 H (0.3-1.2) mg/dL Direct Bilirubin 3.7 H (0.0-0.3) mg/dL AST 37 H (0-34) U/L ALT 62 H (10-49) U/L Alkaline Phosphatase 502 H (46-116) U/L Albumin 2.8 L (3.5-5.0) gm/dL Assessment and Plan Additional Assessment & Plan Additional Plan: 59-year-old man who on dialysis and severe infection in his left leg. Had a rise in bili and GI called to evaluate the pt. No sign or symptoms of liver failure s/p MRCP: Cirrhosis Hepatosplenomegaly No common hepatic or common bile duct stones Negative for pancreatitis Most likely due to cirrhosis (Decompensated cirrhosis) vs. Congested hepatopathy vs . medication Check echo Check BNP Needs out pt liver work up Start ayde no need for ercp Call with any question
[2025-01-05] MEDS: ursodioL 300 MG CAPSULE PO ×2 (15:26→20:54)
--- NOTE | 2025-01-05 16:35 | ESPR_ITS ---
<Statement entered by Christopher Cooper MD - 01/06/25 07:49> Senior Resident Attestation: I supervised/discussed management plan with help desk intern physician Dr. Gallo, and was involved in the care of this patient. I personally saw and examined the patient and discussed the assessment and plan with the entire medicine team, including my attending. I agree with the assessment and plan as documented. Patient underwent hemodialysis today. He is bilirubin continues to be uptrending, will discuss it with GI. Continue current management. Patient's care was discussed with attending physician, Dr. Lauren. Christopher Cooper MD PGY-2. Documentation for date of: 01/05/25 Subjective Subjective Interval history: Patient is seen and examined at bedside in the dialysis unit No acute overnight events. Complaining of itchiness all over the body and dryness in the mouth Vitals are stable. On physical examination, dryness noted over the entire body with rash on abdomen Labs showed uptrending platelets, 47. But patient found to have persistently increasing bilirubin levels Dr. Ayala was consulted and he recommended to continue ursodiol for now and also to follow-up on outpatient basis for further workup Will continue to monitor liver functions Exam Vital Signs Temp Pulse Resp BP Pulse Ox O2 Del Method O2 Flow Rate 97.5 F 63 18 107/51 L 96 Room Air 2 01/05/25 12:40 01/05/25 15:25 01/05/25 12:40 01/05/25 15:25 01/05/25 12:40 01/05/25 07:49 01/05/25 04:00 Narrative Exam General: Awake. HEENT: Normocephalic, atraumatic, mucous membranes moist. Heart: Regular rate and rhythm, no murmurs. Lungs: Clear to auscultation with no wheezing or crackles. Abdomen: Soft, nondistended, nontender, positive bowel sounds. ?No guarding or rebound tenderness. Neurologic: Alert and oriented x3, no gross neurological deficit, and patient able to move all 4 extremities. Extremities: Bilateral chronic venous stasis.noted dressing at the site of ulcer. AV fistula on left upper extremity, noted reddish discoloration at the site Skin: Diffuse papular rash with erythema, itching was noted on lower extremities, abdomen and back Objective Labs 01/06/25 04:12 01/06/25 04:12 Labs: Laboratory Results - last 24 hr 01/02/25 01/04/25 01/04/25 07:52 13:02 17:29 WBC RBC Hgb Hct MCV MCH MCHC RDW Std Deviation Plt Count Neut % (Auto) Lymph % (Auto) [place] % (Auto) Eos % (Auto) Baso % (Auto) Neut # (Auto) Lymph # (Auto) [place] # (Auto) Eos # (Auto) Baso # (Auto) Immature Gran # (Auto) Absolute Nucleated RBC Immature Gran % Nucleated RBC % PT INR APTT Sodium Potassium Chloride Carbon Dioxide Anion Gap BUN Creatinine Estim Creat Clear Calc eGFR BUN/Creatinine Ratio Glucose Calculated Osmolality Lactic Acid 2.2 H Calcium Corrected Calcium Phosphorus Magnesium Total Bilirubin Direct Bilirubin AST ALT Alkaline Phosphatase Total Protein Albumin Globulin Albumin/Globulin Ratio PTH Intact Random Vancomycin Hepatitis A IgM Ab Non Reactive Hep Bs Antigen Non Reactive Hep Bs Antibody NonReact(Not Immune) L Hep B Core IgM Ab Non Reactive Hepatitis C Antibody Non Reactive Misc Test Result Crossmatch See Detail 01/05/25 01/05/25 01/05/25 04:15 04:16 08:00 WBC 6.4 RBC 2.76 L Hgb 8.6 L Hct 25.5 L MCV 92 MCH 31.2 MCHC 33.7 RDW Std Deviation 56.3 H Plt Count 47 L D Neut % (Auto) 86 H Lymph % (Auto) 6 L [place] % (Auto) 3 Eos % (Auto) 3 Baso % (Auto) 0 Neut # (Auto) 5.5 Lymph # (Auto) 0.4 L [place] # (Auto) 0.2 Eos # (Auto) 0.2 Baso # (Auto) 0.0 Immature Gran # (Auto) 0.07 H Absolute Nucleated RBC 0.00 Immature Gran % 1 H Nucleated RBC % 0 PT 13.7 H INR 1.3 APTT 37.1 H Sodium 129 L Potassium 4.3 D Chloride 93 L Carbon Dioxide 24.3 Anion Gap 12 BUN 59 H Creatinine 7.8 H* D Estim Creat Clear Calc 15.2 L eGFR 7 L* BUN/Creatinine Ratio 8 L Glucose 128 H Calculated Osmolality 277 Lactic Acid Calcium 9.8 Corrected Calcium 10.8 H Phosphorus 4.0 Magnesium 2.1 Total Bilirubin 6.1 H Direct Bilirubin 3.7 H AST 37 H ALT 62 H Alkaline Phosphatase 502 H Total Protein 5.6 L Albumin 2.8 L Globulin 2.8 Albumin/Globulin Ratio 1.0 L PTH Intact 368.1 H Random Vancomycin 15.4 Hepatitis A IgM Ab Hep Bs Antigen Hep Bs Antibody Hep B Core IgM Ab Hepatitis C Antibody Misc Test Result Platelets confirmed Crossmatch Quality Measures Quality Measures none Assessment & Plan Assessment Current Active Medications: Generic Name Dose Route Start Last Admin Trade Name Freq PRN Reason Stop Dose Admin Acetaminophen 650 mg 12/31/24 09:07 01/05/25 03:15 Acetaminophen 325 Mg Tablet PO 01/29/25 18:29 650 mg Q6H PRN Administration Fever >100.3 Dextrose 25 ml 12/31/24 02:53 01/04/25 06:42 Dextrose 50%-Water Inj 50 Ml Syringe IV 01/30/25 02:52 25 ml Q15MIN PRN Administration BG 50-70 responsive npo pt Dextrose 50 ml 12/31/24 02:53 Dextrose 50%-Water Inj 50 Ml Syringe IV 01/30/25 02:52 Q15MIN PRN BG <50 OR BG <70 & pt unresponsive Diphenhydramine HCl 25 mg 01/01/25 10:59 01/05/25 03:15 Diphenhydramine 25 Mg Capsule PO 01/31/25 10:58 25 mg Q6HR PRN Administration ITCHING Glucagon 1 mg 12/31/24 02:53 Glucagon Inj 1 Mg Vial IM Q15MIN PRN BG <70, and no IV access Albumin Human 25 gm in 100 mls @ 100 mls/min 01/05/25 08:00 01/05/25 08:46 Albuminar-25 Ivpb IV 100 mls/min PRN PRN Administration DIALYSIS Levothyroxine Sodium 112 mcg 12/31/24 06:00 01/05/25 06:05 Levothyroxine Sodium 112 Mcg Tablet PO 01/30/25 05:59 112 mcg ACBR MARIANO Administration Midodrine 10 mg 01/04/25 14:30 01/05/25 15:25 Midodrine 5 Mg Tablet PO 02/03/25 14:29 10 mg TID MARIANO Administration Ondansetron HCl 4 mg 12/30/24 18:30 Ondansetron Inj 2 Mg/Ml Inj 2 Ml IV 01/29/25 18:29 Q6H PRN NAUSEA OR VOMITING Protocol Ursodiol 300 mg 01/05/25 13:30 01/05/25 15:26 Ursodiol 300 Mg Capsule PO 02/04/25 13:29 300 mg QID MARIANO Administration Vitamin B Complex/Vit C/Folic Acid 1 tab 12/31/24 09:00 01/05/25 08:44 Vit B12/Vit C/Fa (Nephrovite) Tablet PO 01/30/25 08:59 Not Given QDAY MARIANO Plan A 59-year-old male with significant past medical history of hypothyroidism, chronic left lower extremity ulcer with dermatitis, ESRD on HD [M/W/F] since [address] Cotton, bilateral chronic venous stasis, chronic anemia since 2 years on PRBC transfusion once in every 2 weeks presented to the hospital with chief complaints of generalized weakness, worsening of chronic ulcer on left lower extremity since 3 days and admitted for left lower extremity cellulitis with chronic ulcer # Hypotension # Suspicion of adrenal insufficiency - Patient was found to have hypotension and hypoglycemia since 01/02/2025 - Despite being on dextrose, patient found to have mild hypoglycemic episodes - Patient had history of topical hydrocortisone usage for a long time Plan - A dose of dexamethasone 8 Mg IV is given on 01/04/2025 - 8 AM serum free cortisol is ordered, pending - Started on midodrine 10 Mg p.o. 3 times daily # Hyperbilirubinemia # Transaminitis - Patient's LFTs within normal limits during the hospital admission - Patient was found to have hypoglycemia yesterday night around blood glucose of 60 for which discharge was held - Labs during this morning showed total bilirubin of 2.9, AST 128, ALT 115, ALP 556 - Ultrasound abdomen is ordered, did not show any significant pathology Plan - CT abdomen/pelvis was ordered in view of continuous uptrending total bilirubin, revealed hepatosplenomegaly - MRCP was ordered to look for any obstructive causes of jaundice, no signs of obstruction in the biliary ducts - Dr. Ayala was consulted in view of hyperbilirubinemia, recommended to continue ursodiol and outpatient follow-up # Chronic osteomyelitis of left lower extremity # Left lower extremity cellulitis superimposed on # chronic Left lower extremity ulcer. # Bilateral chronic venous stasis. -Patient had history of lower extremity infection 11 years ago following which patient ended up on dialysis due to severe cellulitis. -Patient endorsed that later the infection resolved leaving chronic venous stasis. -Reported that since 2 years, patient had chronic dermatitis with left lower extremity ulcer and is following wound care on and off. -Vitals are stable at the time of admission. -Labs showed WBC 5.9, Hb 6.9, platelets 85, sodium 132, chloride 93, BUN 38, creatinine 7.2, lactate 1.9, procalcitonin 2.17. -Consulted general surgery Dr Lozano, appreciate recommendations. 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 cotton -Dr Melissa recommended to continue Ancef 2 g during the dialysis -Referral to wound care done. -IV Dilaudid as needed for pain. -CT of left lower extremity without contrast is done that showed mild chronic osteomyelitis of anterior tibial shaft -Dr Melissa was consulted and he recommended to continue antibiotics for osteomyelitis for 6 weeks and patient can get antibiotics during his dialysis sessions -Informed Dr. Cotton about the antibiotics for 6 weeks, till 11 Feb 2025 # Bigeminy - EKG showed bigeminy - Potassium and magnesium are within normal limits - Interior Design Consultant Dr. Fatima was consulted, will appreciate his recommendations - Echo ordered # ESRD on HD [M/W/F]. -Patient is on hemodialysis since 11 years. -Patient had AV fistula on left upper extremity. -Patient is still able to make some amount of urine. -Patient reported that he was trying to get onto transplant list, he was rejected once as he is having overweight. -Patient missed dialysis on 12/30/2024 due to generalized weakness and got admitted into the hospital. Plan: -Dr. Cotton is consulted, will appreciate her recommendations. -HD as per his routine dialysis schedule -Patient is supposed to get his dialysis session on 01/04/2025, held in view of low blood pressures -Nephro-Martín. -Avoid nephrotoxic and renally dose medications. # Chronic anemia, likely secondary to ESRD, in setting of chronic leg ulcers. # Chronic Thrombocytopenia, secondary to ESRD. -Patient reported that he is having anemia since 2 years and receiving blood transfusions once in every 2 weeks in the ED. -Bone marrow biopsy was done and it did not show any significant pathology due to inadequate sample. Plan: - PRBC transfusion(4 total since admission). - Post's pain transfusion H&H. - No evidence of bleeding. # Hypothyroidism. -Patient is using 112 mcg of levothyroxine. Plan: -Resumed his home levothyroxine. Hospital Maintenance: Dispo: Tele DVT ppx: Held for now in view of anemia and thrombocytopenia. GI ppx: Not needed as of now. Diet: Renal. IV lines: Peripheral. Code status: Full code. Patient plan of care was discussed with the attending physician, Dr. Lauren and senior resident Dr. Kenneth Gallo, PGY1 Attending Provider Attestation/Addendum I, Kimberly Lauren, , attest that I was physically present for the [place] portions of the service and evaluated the patient with the resident and I reviewed and discussed the case with the resident and agree with the resident's findings and plans of care as documented above Patient seen and evaluated in dialysis this AM. No acute events overnight. BP and BG better controlled today. Patient continues to complain of skin dryness and continues to have some diffuse redness. Bilirubin uptrending. Case dsicussed with GI. No evidence of choledocholithiasis on MRCP. Suspect hyperbilirubinemia to be 2/2 cholestasis due to medications versus decompensated cirrhosis. Rocephin discontinued due to concern for cholestasis. Continue with current management and f/u with LFTs
[2025-01-06] VITALS (12 sets, daily range): BP systolic 96–137; BP diastolic 42–73; PULSE 54–86; RESP 17–18; TEMP 36.3–37.2; O2SAT 94–98
[2025-01-06 00:12] LABS: Collection Type, Urine Catheter
[2025-01-06 00:28] LABS: Bilirubin,Urine Negative (Negative); Blood,Urine 3+ (Negative); Clarity,Urine Clear (Clear/Hazy); Color,Urine Yellow (Lt Yel-Yel); Glucose, Urine 1+ (Negative); Ketones,Urine Negative (Negative); Leukocyte Esterase,Urine Negative (Negative); Nitrite,Urine Negative (Negative); PH,Urine 8.5 (5.0-7.0); Protein,Urine 1+ (Neg - Trace); RBC,Urine 10 /hpf (0-3); Specific Gravity,Urine 1.007 (1.001-1.035); Squamous Epithelial Cell,Urine 1 /hpf (0-5); Urobilinogen,Urine Negative mg/dL (0.0-1.0); WBC,Urine 2 /hpf (0-5)
[2025-01-06] MEDS: ursodioL 300 MG CAPSULE PO ×4 (05:01→20:49)
[2025-01-06] MEDS: LEVOTHYROXINE SODIUM 112 MCG TABLET PO (05:01)
[2025-01-06 05:38] LABS: Basophils % (Auto) 0 % (0-2.5); Eosinophils # (Auto) 0.3 Thou/mm3 (0.0-0.5); Eosinophils % (Auto) 5 % (0-10); Immature Granulocytes % (Auto) 2 % (0-0); Immature Granulocytes Auto 0.12 Thou/mm3 (0.00-0.00); Lymphocytes # (Auto) 0.6 Thou/mm3 (1.0-4.8); Lymphocytes % (Auto) 12 % (10-50); Mean Corpuscular HGB Conc 33.8 g/dl (31.0-37.0); Mean Corpuscular Hemoglobin 31.6 pg (25.0-35.0); Mean Corpuscular Volume 93 fL (80-100); Monocytes # (Auto) 0.3 Thou/mm3 (0.0-0.8); Monocytes % (Auto) 5 % (0-12); Neutrophils # (Auto) 3.9 Thou/mm3 (1.8-7.7); Neutrophils % (Auto) 75 % (37-80); Nucleated Red Blood Cell % 0 /100 WBC (0); RDW Standard Deviation 57.1 fL (35.1-43.9); Red Blood Count 2.25 Miln/mm3 (4.50-5.90); White Blood Count 5.2 Thou/mm3 (3.8-10.6)
[2025-01-06 05:39] LABS: Hemoglobin 7.1 g/dL (13.5-16.0); Platelet Count 53 Thou/mm3 (140-440)
[2025-01-06 05:51] LABS: Slide Review Platelets confirmed
[2025-01-06 06:09] LABS: Alanine Aminotransferase 44 U/L (10-49); Albumin, Serum 2.8 gm/dL (3.5-5.0); Alkaline Phosphatase 398 U/L (46-116); Anion Gap 7 (7-16); Aspartate Amino Transferase 23 U/L (0-34); BUN/Creatinine Ratio 8 Ratio (12-20); Bilirubin,Total 1.8 mg/dL (0.3-1.2); Blood Urea Nitrogen 42 mg/dL (9-23); Calcium 9.7 mg/dL (8.3-10.6); Calcium (Corrected) 10.7 mg/dL (8.5-10.1); Carbon Dioxide 29.8 mMol/L (20.0-31.0); Chloride 96 mMol/L (98-107); Creatinine (Component) 5.4 mg/dL (0.6-1.3); Estimated Creatinine Clearance 21.9 mL/min (>60); Globulin 2.7 gm/dL (2.3-3.5); Glucose 109 mg/dL (74-106); Magnesium 2.1 mg/dL (1.6-2.6); Osmolality,Calculated 277 (275-295); Phosphorous 4.2 mg/dL (2.4-5.1); Potassium 3.8 mMol/L (3.4-5.1); Sodium 133 mMol/L (136-145); Total Protein 5.5 gm/dL (5.7-8.2); eGFR 12 See Note
--- NOTE | 2025-01-06 09:02 | PD.IDPROG ---
Subjective Subjective Interval history: other w/u in process. no fever. on long-term rx as precaution. Exam Vital Signs Temp Pulse Resp BP Pulse Ox O2 Del Method O2 Flow Rate 98.9 F 54 L 17 116/42 L 95 Room Air 2 01/06/25 07:35 01/06/25 07:35 01/06/25 07:35 01/06/25 07:35 01/06/25 07:35 01/06/25 07:35 01/05/25 04:00 Narrative Exam limited eval today Objective - Internal Medicine Labs 01/06/25 04:12 01/06/25 04:12 Labs: Laboratory Results - last 24 hr 01/04/25 01/05/25 01/06/25 23:40 08:00 04:12 WBC 5.2 RBC 2.25 L Hgb 7.1 L Hct 21.0 L* MCV 93 MCH 31.6 MCHC 33.8 RDW Std Deviation 57.1 H Plt Count 53 L Neut % (Auto) 75 Lymph % (Auto) 12 [place] % (Auto) 5 Eos % (Auto) 5 Baso % (Auto) 0 Neut # (Auto) 3.9 Lymph # (Auto) 0.6 L [place] # (Auto) 0.3 Eos # (Auto) 0.3 Baso # (Auto) 0.0 Immature Gran # (Auto) 0.12 H Absolute Nucleated RBC 0.00 Immature Gran % 2 H Nucleated RBC % 0 Sodium 133 L Potassium 3.8 D Chloride 96 L Carbon Dioxide 29.8 Anion Gap 7 BUN 42 H Creatinine 5.4 H* D Estim Creat Clear Calc 21.9 L eGFR 12 L* BUN/Creatinine Ratio 8 L Glucose 109 H Calculated Osmolality 277 Calcium 9.7 Corrected Calcium 10.7 H Phosphorus 4.2 Magnesium 2.1 Total Bilirubin 1.8 H D Direct Bilirubin 3.7 H AST 23 ALT 44 Alkaline Phosphatase 398 H D Total Protein 5.5 L Albumin 2.8 L Globulin 2.7 Albumin/Globulin Ratio 1.0 L Ur Collection Type Catheter Urine Color Yellow Urine Clarity Clear Urine pH 8.5 H Ur Specific [place] 1.007 Urine Protein 1+ A Urine Glucose (UA) 1+ A Urine Ketones Negative Urine Blood 3+ A Urine Nitrite Negative Urine Bilirubin Negative Urine Urobilinogen (Auto) Negative Ur Leukocyte Esterase Negative Urine RBC 10 H Urine WBC 2 Ur Squamous Epith Cells 1 Urine Bacteria None Misc Test Result Platelets confirmed Assessment & Plan A&P Narrative osteo on imaging ckd 5 on hd, cause of ckd per renal no bacteremia hypothyroid ok for ancef , 1 gm daily in house or 2 gm with hd overall for 6 weeks from initiation(thru 02/11) weekly cbc, renal panel, esr while on iv rx. access likely needs to stay in for hd and with no bacteremia, that is ok with me f/u with others. I can not see him in clinic. will not see again unless formally requested by primary team. Time Spent With Patient Time: Total time spent is greater than 50% in coordination of care (as documented) at patient's floor/unit and/or counseling patient:
--- NOTE | 2025-01-06 09:23 | ECHO_ITS ---
Transthoracic Echo Report Ht (in): 75 Wt (lb): 300 Exam Location: Echo Lab Status: Inpatient Pad Extraction Tender: Citlalli Toledo Indications: Procedure Performed: BP: 113 / 73 HR: 72 Technical Quality: Very technically difficult study MEASUREMENTS (Male / Female) Normal Values 2D ECHO LV Diastolic Diameter PLAX 6.4 cm 4.2 - 5.9 / 3.9 - 5.3 cm LV Systolic Diameter PLAX 4.5 cm IVS Diastolic Thickness 1.3 cm 0.6 - 1.0 / 0.6 - 0.9 cm LVPW Diastolic Thickness 1.3 cm 0.6 - 1.0 / 0.6 - 0.9 cm LV Relative Wall Thickness 0.4 LVOT Diameter 2.2 cm Aortic Root Diameter 3.5 cm LA Systolic Diameter LX 5.4 cm 3.0 - 4.0 / 2.7 - 3.8 cm DOPPLER AV Peak Velocity 245.0 cm/s AV Peak Gradient 24.0 mmHg AV Mean Gradient 11.0 mmHg AV Velocity Time Integral 60.4 cm LVOT Peak Velocity 114.0 cm/s LVOT Peak Gradient 5.2 mmHg LVOT Velocity Time Integral 26.5 cm LVOT Cardiac Index 2656.1 cm?/min?m? AV Area Cont Eq vti 1.7 cm? AV Area Cont Eq pk 1.8 cm? MV Area PHT 3.2 cm? Mitral E Point Velocity 128.0 cm/s Mitral A Point Velocity 102.0 cm/s Mitral E to A Ratio 1.3 LV E' Lateral Velocity 12.5 cm/s Mitral E to LV E' Lateral Ratio 10.2 LV E' Septal Velocity 8.9 cm/s Mitral E to LV E' Septal Ratio 14.3 FINDINGS Left Ventricle Normal left ventricular size, systolic function with no obvious regional wall motion abnormalities. Mild LVH. Normal left ventricular diastolic filling pattern for age. The ejection fraction is visually estimated at 50 %. Right Ventricle The right ventricle not well visualized. RV function normal. Left Atrium The left atrium is normal by two-dimensional, color flow and Doppler imaging with no structural abnormalities, no thrombus formation present. Right Atrium The right atrium is normal by two-dimensional imaging, color flow and Doppler imaging with no structural abnormalities, no thrombus formation present. Atrial Septum The interatrial septum appears normal with no evidence of a shunt. Aorta The aorta is normal by two-dimensional, color flow and Doppler interrogation. Mitral Valve Mild mitral annular calcification. Aortic Valve Moderate thickening of the aortic valve leaflets. Mild aortic valve stenosis. Tricuspid Valve There is mild tricuspid valve regurgitation. Pulmonic Valve The pulmonic valve is not well visualized. There is no significant pulmonic valve regurgitation. Vessels The pulmonary artery appears normal. The inferior vena cava pulmonary and hepatic veins appear normal. Pericardium The pericardium is normal by two-dimensional imaging. There is no significant pericardial effusion. CONCLUSIONS Indication: Arrhythmia, abnormal EKG Normal left ventricular size and function. Mild LVH. Estimeated EF 50%. RV not well visualized. RV function appears normal. Mild TR but RVSP could not be estimated. Moderately thickened and calcified aortic valve. Mild aortic stenosis. Possibly underestimated hide with velocity right velocity of the mid I did get a limited echo to reevaluate the aortic stenosis. Moderate posterior MAC with mild anterior MAC. Mild thickening of mitral leaflets. Juan Fatima (Electronically Signed) Final Date: 08 January 2025 17:49
--- NOTE | 2025-01-06 10:00 | PC.NURSE ---
was called by [place] environmental monitoring specialist leads were off went in to put environmental monitoring specialist back on pt states I am ok leave me alone [facility] made aware and attempted to be notified unsuccessful
--- NOTE | 2025-01-06 10:13 | PD.RESPRO ---
Documentation for date of: 01/06/25 Subjective Subjective Interval history: Mr. Weaver is a 59-year-old male with a known history of ESRD on hemodialysis (HD) thrice weekly (Thursday/Thursday/Thursday), under the care of Dr. Cotton for the past 11 years. He presented to the ED with generalized weakness and worsening of a chronic left lower extremity ulcer, which has been present for approximately 2.5 years. He reports being at baseline until 3 days ago, when he began experiencing generalized weakness without associated fever, nausea, or vomiting. He endorses that he scratched his left leg, which led to an ulcerative lesion at the site. The patient states he has been intermittently seen by wound care and has been managing the wound at home with antiseptics. He also reports chronic venous stasis for over 8 years with progressive worsening of the ulcer over the past 2 years. He previously attempted evaluation for renal transplantation but was not listed due to elevated body weight. The patient missed his most recent dialysis session scheduled for 12/30/2024 due to worsening weakness. His last dialysis session was on 12/28/2024. Initial vitals: BP 104/52 mmHg, HR 78 bpm, RR 20/min, Temp 98.2?F, SpO? 100% on room air Laboratory results: Sodium 134, potassium 4.4, chloride 94, BUN 46, creatinine 8.1, EGFR 7, TIBC 99, iron saturation 71, CRP 13.3, Pro-Calc 2.17, WBC 4.3, Hgb 7.0, PLT 58. Cultures are pending, currently on DILAUDID and ZOSYN. PMHx: ESRD on HD, hypothyroidism, chronic venous stasis, chronic anemia PSHx: Left upper extremity AV fistula placement MEDS: Pending med rec no need for any surgical intervention. Patient wants to follow-up with wound care center.- ALLERGIES: Adhesive tape FHx: Not significant SH: Denies tobacco, alcohol or drug use Nephrology was consulted for inpatient hemodialysis. 01/01/2025 patient currently seen in medical floor. Resting comfortably. Still having significant discomfort in the lower extremities. He has a huge ulcers on the left leg. Seen by surgeon-if he is not discharged-he will need dialysis tomorrow. 01/02/2025 examined at bedside. Complaining of lower extremity pain. Bilaterally skin desquamation improved with wound care. CT showed osteomyelitis of the left lower extremity, surgery on board, pending ID recommendation. Advised against central line, contraindicated with HD. Can do ABX thru HD cath. 01/03/2025 Examined at bedside. Reports no new or worsening of symptoms. CR 5.4, BUN 35, EGFR 12. Will do 6 weeks of IV ROCEPHIN and VANCO with HD per ID recs. Complained of recurrent hypoglycemia episodes, recommended DIAZOXIDE PRN on d/c. 01/04/2025 Examined at bedside. Denies fever, chills, headaches, chest pain, sob, cough, GI or urinary symptoms. CR 7.0, BUN 49, GFR 8, sodium 130, chloride 94. Has diffuse erythematous rash on exam, suggestive of red man syndrome following VANCOMYCIN which was discontinued. 01/05/2025 examined at bedside. Complaining of dry mouth likely secondary to BENADRYL IV, rash overall improving, left upper extremity Doppler negative for DVT 24-hour blood culture negative. CT showed cirrhosis with splenomegaly, cholelithiasis, end-stage [place] kidney, atrophic left transplanted kidney. Sodium 129, CR 7.8, BUN 59, GFR 7. Plan for hemodialysis today. 01/06/2025 examined at bedside. Doing well today. Rash improved significantly, but has some itching. Had bowel movement today with some urine output. CR 5.4, BUN 42, EGFR 12, sodium 133, potassium 3.8, Hgb 7.1, PLT 53, no leukocytosis. Primary team planning discharge today. Will schedule HD tomorrow 01/07 and resume MWF next week. Exam Vital Signs Temp Pulse Resp BP Pulse Ox O2 Del Method O2 Flow Rate 98.9 F 71 17 116/42 L 95 Room Air 2 01/06/25 07:35 01/06/25 08:00 01/06/25 07:35 01/06/25 07:35 01/06/25 07:35 01/06/25 07:35 01/05/25 04:00 Narrative Exam General: Awake. HEENT: Normocephalic, atraumatic, mucous membranes moist. Heart: Regular rate and rhythm, no murmurs. Lungs: Clear to auscultation with no wheezing or crackles. Abdomen: Soft, nondistended, nontender, positive bowel sounds. ?No guarding or rebound tenderness. Neurologic: Alert and oriented x3, no gross neurological deficit, and patient able to move all 4 extremities. Extremities: Bilateral chronic venous stasis. Chronic ulcer with necrotic patch of approximately 5 x 10 x 7 cm noted on the anterior expected of left lower leg, ulceration noted on the lateral side of the leg, induration noted in the entire left lower extremity. Skin: Diffuse erythematous rash improved. Objective Labs 01/07/25 05:27 01/07/25 05:27 Labs: Laboratory Results - last 24 hr 01/04/25 01/06/25 23:40 04:12 WBC 5.2 RBC 2.25 L Hgb 7.1 L Hct 21.0 L* MCV 93 MCH 31.6 MCHC 33.8 RDW Std Deviation 57.1 H Plt Count 53 L Neut % (Auto) 75 Lymph % (Auto) 12 [place] % (Auto) 5 Eos % (Auto) 5 Baso % (Auto) 0 Neut # (Auto) 3.9 Lymph # (Auto) 0.6 L [place] # (Auto) 0.3 Eos # (Auto) 0.3 Baso # (Auto) 0.0 Immature Gran # (Auto) 0.12 H Absolute Nucleated RBC 0.00 Immature Gran % 2 H Nucleated RBC % 0 Sodium 133 L Potassium 3.8 D Chloride 96 L Carbon Dioxide 29.8 Anion Gap 7 BUN 42 H Creatinine 5.4 H* D Estim Creat Clear Calc 21.9 L eGFR 12 L* BUN/Creatinine Ratio 8 L Glucose 109 H Calculated Osmolality 277 Calcium 9.7 Corrected Calcium 10.7 H Phosphorus 4.2 Magnesium 2.1 Total Bilirubin 1.8 H D AST 23 ALT 44 Alkaline Phosphatase 398 H D Total Protein 5.5 L Albumin 2.8 L Globulin 2.7 Albumin/Globulin Ratio 1.0 L Ur Collection Type Catheter Urine Color Yellow Urine Clarity Clear Urine pH 8.5 H Ur Specific [place] 1.007 Urine Protein 1+ A Urine Glucose (UA) 1+ A Urine Ketones Negative Urine Blood 3+ A Urine Nitrite Negative Urine Bilirubin Negative Urine Urobilinogen (Auto) Negative Ur Leukocyte Esterase Negative Urine RBC 10 H Urine WBC 2 Ur Squamous Epith Cells 1 Urine Bacteria None Misc Test Result Platelets confirmed Quality Measures Quality Measures none Assessment & Plan Assessment Current Active Medications: Generic Name Dose Route Start Last Admin Trade Name Freq PRN Reason Stop Dose Admin Acetaminophen 650 mg 12/31/24 09:07 01/05/25 03:15 Acetaminophen 325 Mg Tablet PO 01/29/25 18:29 650 mg Q6H PRN Administration Fever >100.3 Dextrose 25 ml 12/31/24 02:53 01/04/25 06:42 Dextrose 50%-Water Inj 50 Ml Syringe IV 01/30/25 02:52 25 ml Q15MIN PRN Administration BG 50-70 responsive npo pt Dextrose 50 ml 12/31/24 02:53 Dextrose 50%-Water Inj 50 Ml Syringe IV 01/30/25 02:52 Q15MIN PRN BG <50 OR BG <70 & pt unresponsive Diphenhydramine HCl 25 mg 01/01/25 10:59 01/05/25 23:51 Diphenhydramine 25 Mg Capsule PO 01/31/25 10:58 25 mg Q6HR PRN Administration ITCHING Glucagon 1 mg 12/31/24 02:53 Glucagon Inj 1 Mg Vial IM Q15MIN PRN BG <70, and no IV access Albumin Human 25 gm in 100 mls @ 100 mls/min 01/05/25 08:00 01/05/25 08:46 Albuminar-25 Ivpb IV 100 mls/min PRN PRN Administration DIALYSIS Cefazolin Sodium 2 gm in 100 mls @ 100 mls/hr 01/06/25 09:15 Ancef 2gm Ivpb IV 01/13/25 09:14 Q48H [facility] Levothyroxine Sodium 112 mcg 12/31/24 06:00 01/06/25 05:01 Levothyroxine Sodium 112 Mcg Tablet PO 01/30/25 05:59 112 mcg ACBR MARIANO Administration Midodrine 10 mg 01/04/25 14:30 01/06/25 04:53 Midodrine 5 Mg Tablet PO 02/03/25 14:29 Not Given TID MARIANO Ondansetron HCl 4 mg 12/30/24 18:30 Ondansetron Inj 2 Mg/Ml Inj 2 Ml IV 01/29/25 18:29 Q6H PRN NAUSEA OR VOMITING Protocol Ursodiol 300 mg 01/05/25 13:30 01/06/25 05:01 Ursodiol 300 Mg Capsule PO 02/04/25 13:29 300 mg QID MARIANO Administration Vitamin B Complex/Vit C/Folic Acid 1 tab 12/31/24 09:00 01/06/25 08:28 Vit B12/Vit C/Fa (Nephrovite) Tablet PO 01/30/25 08:59 Not Given QDAY MARIANO Plan 59-year-old male with PMHx of ESRD HD MWF, hypothyroidism, chronic left lower extremity ulcer, chronic anemia, recurrent GI bleed and biweekly transfusions, presenting with worsening left extremity pain. Admitted for cellulitis of left lower extremity with laceration. Hemodialysis tomorrow outpatient. Resume HD MWF start next week. ESRD HD MWF Anemia of chronic disease Recurrent blood transfusions History of ESRD. Has recurrent GI bleed with biweekly blood transfusions--patient under the care of Dr. Azar and Dr. Ervin from [facility] Sodium 129, CR 5.4, BUN 42, GFR 12. Hgb 7.1. 24-hour blood culture negative. ? HD tomorrow outpatient, resume HD MWF next week ? ABX with HD ? Daily labs Left lower extremity osteomyelitis, cellulitis superimposed on Chronic Left lower extremity ulcer with eschar-no need for surgical intervention per surgeon Bilateral chronic venous stasis. Chronic anemia, likely secondary to ESRD, in setting of chronic leg ulcers. Chronic Thrombocytopenia, secondary to ESRD. Hypothyroidism. ? Managed by primary team ? Avoid VANCOMYCIN, concern for red man syndrome, rash improving Thank you for the opportunity to participate in the patient's care. Case was discussed with attending, Dr. Cotton. Sherine Hinds, PGYI Attending Provider Attestation/Addendum Patient seen and examined with resident physician Dr. Basurto. Note reviewed, agree with findings and recommendations. Admitted with weakness, significant in left leg ulcers with oozing Patient had a rapid response for low blood pressure. Noted to have significant erythema in the entire body with rash. Suspect red man syndrome. Spoke to Dr. Lauren-given steroid, Benadryl IV. Hold dialysis today. Hold blood transfusion today. Patient with osteomyelitis of the left leg. Will need antibiotics for 6 weeks will be given at the dialysis. 01/06/2025 rash much better with steroids and Benadryl. Patient did receive dialysis yesterday. Next dialysis scheduled for tomorrow.
[2025-01-06] MEDS: VIT B12/Vit C/FA (Nephrovite) TABLET 1 TAB PO (11:45)
[2025-01-06] MEDS: ceFAZolin/D5W 2 GM IV 2 GM/100 ML BAG IV (11:45)
--- NOTE | 2025-01-06 12:04 | PC.SS ---
SS follow up note; Patient will discharge back home today.
--- NOTE | 2025-01-06 13:21 | ESPR_ITS ---
<Statement entered by Christopher Cooper MD - 01/07/25 08:09> Senior Resident Attestation: I supervised/discussed management plan with auditor internal physician Dr. Gallo, and was involved in the care of this patient. I personally saw and examined the patient and discussed the assessment and plan with the entire medicine team, including my attending. I agree with the assessment and plan as documented. Patient is doing fine has no complaints today. Hemoglobin remains downtrending. Patient will undergo hemodialysis and possible PRBC transfusion tomorrow and will be discharged after. Patient's care was discussed with attending physician, Dr. Lauren. Christopher Cooper MD PGY-2. Documentation for date of: 01/06/25 Subjective Subjective Interval history: Patient is seen and examined at bedside No acute overnight events. Denies any other complaints Reported that he is feeling good and his rash is becoming better Vitals are stable. On physical examination, noted to have rash which is resolving, noted dryness all over the body with flakes Labs done today showed hemoglobin 7.1, total bilirubin down trended to 1.8, AST and ALT within normal limits Patient will be scheduled for HD tomorrow and planning to give 1 PRBC transfusion during the dialysis Dr. Ayala was consulted and recommended to continue ursodeoxycholic acid during the hospital stay Recommended to continue using moisturizer for the dryness over the body Will continue to monitor LFTs and plan to discharge tomorrow if bilirubin is still downtrending Will continue cefazolin 2 g with every dialysis session till February 11, 2025 Exam Vital Signs Temp Pulse Resp BP Pulse Ox O2 Del Method O2 Flow Rate 98.7 F 86 18 96/72 97 Room Air 2 01/06/25 12:00 01/06/25 12:00 01/06/25 12:00 01/06/25 12:01/06/25 12:01/06/25 12:01/05/25 04:00 Narrative Exam General: Awake. HEENT: Normocephalic, atraumatic, mucous membranes moist. Heart: Regular rate and rhythm, no murmurs. Lungs: Clear to auscultation with no wheezing or crackles. Abdomen: Soft, nondistended, nontender, positive bowel sounds. ?No guarding or rebound tenderness. Neurologic: Alert and oriented x3, no gross neurological deficit, and patient able to move all 4 extremities. Extremities: Bilateral chronic venous stasis.noted dressing at the site of ulcer. AV fistula on left upper extremity Skin: Dryness noted all over the skin with flakes Objective Labs 01/07/25 05:27 01/07/25 05:27 Labs: Laboratory Results - last 24 hr 01/04/25 01/06/25 23:40 04:12 WBC 5.2 RBC 2.25 L Hgb 7.1 L Hct 21.0 L* MCV 93 MCH 31.6 MCHC 33.8 RDW Std Deviation 57.1 H Plt Count 53 L Neut % (Auto) 75 Lymph % (Auto) 12 [place] % (Auto) 5 Eos % (Auto) 5 Baso % (Auto) 0 Neut # (Auto) 3.9 Lymph # (Auto) 0.6 L [place] # (Auto) 0.3 Eos # (Auto) 0.3 Baso # (Auto) 0.0 Immature Gran # (Auto) 0.12 H Absolute Nucleated RBC 0.00 Immature Gran % 2 H Nucleated RBC % 0 Sodium 133 L Potassium 3.8 D Chloride 96 L Carbon Dioxide 29.8 Anion Gap 7 BUN 42 H Creatinine 5.4 H* D Estim Creat Clear Calc 21.9 L eGFR 12 L* BUN/Creatinine Ratio 8 L Glucose 109 H Calculated Osmolality 277 Calcium 9.7 Corrected Calcium 10.7 H Phosphorus 4.2 Magnesium 2.1 Total Bilirubin 1.8 H D AST 23 ALT 44 Alkaline Phosphatase 398 H D Total Protein 5.5 L Albumin 2.8 L Globulin 2.7 Albumin/Globulin Ratio 1.0 L Ur Collection Type Catheter Urine Color Yellow Urine Clarity Clear Urine pH 8.5 H Ur Specific [place] 1.007 Urine Protein 1+ A Urine Glucose (UA) 1+ A Urine Ketones Negative Urine Blood 3+ A Urine Nitrite Negative Urine Bilirubin Negative Urine Urobilinogen (Auto) Negative Ur Leukocyte Esterase Negative Urine RBC 10 H Urine WBC 2 Ur Squamous Epith Cells 1 Urine Bacteria None Misc Test Result Platelets confirmed Quality Measures Quality Measures none Assessment & Plan Assessment Current Active Medications: Generic Name Dose Route Start Last Admin Trade Name Freq PRN Reason Stop Dose Admin Acetaminophen 650 mg 12/31/24 09:07 01/05/25 03:15 Acetaminophen 325 Mg Tablet PO 01/29/25 18:29 650 mg Q6H PRN Administration Fever >100.3 Dextrose 25 ml 12/31/24 02:53 01/04/25 06:42 Dextrose 50%-Water Inj 50 Ml Syringe IV 01/30/25 02:52 25 ml Q15MIN PRN Administration BG 50-70 responsive npo pt Dextrose 50 ml 12/31/24 02:53 Dextrose 50%-Water Inj 50 Ml Syringe IV 01/30/25 02:52 Q15MIN PRN BG <50 OR BG <70 & pt unresponsive Diphenhydramine HCl 25 mg 01/01/25 10:59 01/05/25 23:51 Diphenhydramine 25 Mg Capsule PO 01/31/25 10:58 25 mg Q6HR PRN Administration ITCHING Glucagon 1 mg 12/31/24 02:53 Glucagon Inj 1 Mg Vial IM Q15MIN PRN BG <70, and no IV access Albumin Human 25 gm in 100 mls @ 100 mls/min 01/05/25 08:00 01/06/25 11:43 Albuminar-25 Ivpb IV Infused PRN PRN Infusion DIALYSIS Cefazolin Sodium 2 gm in 100 mls @ 100 mls/hr 01/06/25 09:15 01/06/25 11:45 Ancef 2gm Ivpb IV 01/13/25 09:14 100 mls/hr Q48H MARIANO Administration Levothyroxine Sodium 112 mcg 12/31/24 06:00 01/06/25 05:01 Levothyroxine Sodium 112 Mcg Tablet PO 01/30/25 05:59 112 mcg ACBR MARIANO Administration Midodrine 10 mg 01/04/25 14:30 01/06/25 04:53 Midodrine 5 Mg Tablet PO 02/03/25 14:29 Not Given TID MARIANO Ondansetron HCl 4 mg 12/30/24 18:30 Ondansetron Inj 2 Mg/Ml Inj 2 Ml IV 01/29/25 18:29 Q6H PRN NAUSEA OR VOMITING Protocol Ursodiol 300 mg 01/05/25 13:30 01/06/25 11:45 Ursodiol 300 Mg Capsule PO 02/04/25 13:29 300 mg QID MARIANO Administration Vitamin B Complex/Vit C/Folic Acid 1 tab 12/31/24 09:00 01/06/25 11:45 Vit B12/Vit C/Fa (Nephrovite) Tablet PO 01/30/25 08:59 1 tab QDAY MARIANO Administration Plan A 59-year-old male with significant past medical history of hypothyroidism, chronic left lower extremity ulcer with dermatitis, ESRD on HD [M/W/F] since [address] Cotton, bilateral chronic venous stasis, chronic anemia since 2 years on PRBC transfusion once in every 2 weeks presented to the hospital with chief complaints of generalized weakness, worsening of chronic ulcer on left lower extremity since 3 days and admitted for left lower extremity cellulitis with chronic ulcer # Hypotension # Suspicion of adrenal insufficiency - Patient was found to have hypotension and hypoglycemia since 01/02/2025 - Despite being on dextrose, patient found to have mild hypoglycemic episodes - Patient had history of topical hydrocortisone usage for a long time Plan - A dose of dexamethasone 8 Mg IV is given on 01/04/2025 - 8 AM serum free cortisol is ordered, pending - Started on midodrine 10 Mg p.o. 3 times daily # Hyperbilirubinemia # Transaminitis Likely secondary to cholestasis from ceftriaxone - Patient's LFTs within normal limits during the hospital admission - Patient was found to have hypoglycemia yesterday night around blood glucose of 60 for which discharge was held - Labs on 01/03/2025 showed total bilirubin of 2.9, AST 128, ALT 115, ALP 556, bilirubin up trended up to 6.1 on 01/05/2025, as of 01/06/2025, bilirubin is 1.8 - Ultrasound abdomen is ordered, did not show any significant pathology - CT abdomen/pelvis was ordered in view of continuous uptrending total bilirubin, revealed hepatosplenomegaly - MRCP was ordered to look for any obstructive causes of jaundice, no signs of obstruction in the biliary ducts Plan - Dr. Ayala was consulted in view of hyperbilirubinemia, recommended to continue ursodiol and outpatient follow-up - Recommend apply moisturizer all over the body - Will continue to monitor liver functions # Chronic osteomyelitis of left lower extremity # Left lower extremity cellulitis superimposed on # chronic Left lower extremity ulcer. # Bilateral chronic venous stasis. -Patient had history of lower extremity infection 11 years ago following which patient ended up on dialysis due to severe cellulitis. -Patient endorsed that later the infection resolved leaving chronic venous stasis. -Reported that since 2 years, patient had chronic dermatitis with left lower extremity ulcer and is following wound care on and off. -Vitals are stable at the time of admission. -Labs showed WBC 5.9, Hb 6.9, platelets 85, sodium 132, chloride 93, BUN 38, creatinine 7.2, lactate 1.9, procalcitonin 2.17. -Consulted general surgery Dr Lozano, appreciate recommendations. 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 cotton -Dr Melissa recommended to continue Ancef 2 g during the dialysis, started on 01/06/2025 till 11 Feb 2025 -Referral to wound care done. -IV Dilaudid as needed for pain. -CT of left lower extremity without contrast is done that showed mild chronic osteomyelitis of anterior tibial shaft -Dr Melissa was consulted and he recommended to continue antibiotics for osteomyelitis for 6 weeks and patient can get antibiotics during his dialysis sessions -Informed Dr. Cotton about the antibiotics for 6 weeks, till 11 Feb 2025 # Bigeminy - EKG showed bigeminy - Potassium and magnesium are within normal limits - Assistant Business Manager Dr. Fatima was consulted, will appreciate his recommendations - Echo ordered, pending # ESRD on HD [M/W/F]. -Patient is on hemodialysis since 11 years. -Patient had AV fistula on left upper extremity. -Patient is still able to make some amount of urine. -Patient reported that he was trying to get onto transplant list, he was rejected once as he is having overweight. -Patient missed dialysis on 12/30/2024 due to generalized weakness and got admitted into the hospital. Plan: -Dr. Cotton is consulted, will appreciate her recommendations. -HD as per his routine dialysis schedule -Patient got his dialysis session on 01/05/2025, will on 01/07/2025 -Nephro-Martín. -Avoid nephrotoxic and renally dose medications. # Chronic anemia, likely secondary to ESRD, in setting of chronic leg ulcers. # Chronic Thrombocytopenia, secondary to ESRD. -Patient reported that he is having anemia since 2 years and receiving blood transfusions once in every 2 weeks in the ED. -Bone marrow biopsy was done and it did not show any significant pathology due to inadequate sample. Plan: - PRBC transfusion(4 total since admission). - No evidence of bleeding. # Hypothyroidism. -Patient is using 112 mcg of levothyroxine. Plan: -Resumed his home levothyroxine. Hospital Maintenance: Dispo: Tele DVT ppx: Held for now in view of anemia and thrombocytopenia. GI ppx: Not needed as of now. Diet: Renal. IV lines: Peripheral. Code status: Full code. Patient plan of care was discussed with the attending physician, Dr. Lauren and senior resident Dr. Kenneth Gallo, PGY1 Attending Provider Attestation/Addendum I, Kimberly Lauren, DO, attest that I was physically present for the [place] portions of the service and evaluated the patient with the resident and I reviewed and discussed the case with the resident and agree with the resident's findings and plans of care as documented above Patient seen and evaluated this AM. patient appears much more alert. He complains of pruritis and dry skin. Pending physical therapy due to deconditioning. BP well controlled. Anticipate DC wihtin next 24h. HD in AM.
--- NOTE | 2025-01-06 14:22 | ESPR_ITS ---
Documentation for date of: 01/06/25 Subjective Subjective Interval history: No acute events overnight.?Patient seen and examined at bedside this AM.?Patient reports feeling well, breathing well, no complaints of chest pain, palpitations, or presyncopal symptoms. However he does recall one episode of dizziness that felt like the room was spinning when he turned over in the bed. Symptoms resolved abruptly. Patient had not felt these symptoms before. Most likely peripheral vertigo symptom. Labs and vitals were reviewed.?BP in normal range, HR continues with frequent PVCs rate in the 60s. Patient is planned for dialysis tomorrow with blood transfusion. No further complaints at this time. Patient reports long history of weakness that is secondary to his anemia thus contributing to his lack of ability to be active. He had been worked up extensively for the anemia including bone marrow biopsies and hematology consultations before without known cause thus far. Pending echo to be taken. Review of systems otherwise negative except what is mentioned above. Exam Vital Signs Temp Pulse Resp BP Pulse Ox O2 Del Method O2 Flow Rate 98.7 F 86 18 96/72 97 Room Air 2 01/06/25 12:00 01/06/25 12:00 01/06/25 12:00 01/06/25 12:00 01/06/25 12:00 01/06/25 12:00 01/05/25 04:00 Narrative Exam General: AOx3, no acute distress, disheveled, able to speak full sentences HEENT: NC/AT, mucous membranes moist, bilateral sclera anicteric Cardiovascular: bigeminy rhythm appreciated, S1/S2 present, no murmurs appreciated Pulmonary: clear to auscultation bilaterally, no rales/rhonchi/wheezes Abdominal: soft, non-tender, non-distended, no rebound/guarding, normal bowel sounds present Musculoskeletal: LLE bandaged and more swollen than RLE Skin: bilateral chronic venous stasis, AV fistula in LUE Neuro: CN II-XII intact, no focal deficits Objective Labs 01/07/25 05:27 01/06/25 04:12 Labs: Laboratory Results - last 24 hr 01/04/25 01/06/25 23:40 04:12 WBC 5.2 RBC 2.25 L Hgb 7.1 L Hct 21.0 L* MCV 93 MCH 31.6 MCHC 33.8 RDW Std Deviation 57.1 H Plt Count 53 L Neut % (Auto) 75 Lymph % (Auto) 12 [place] % (Auto) 5 Eos % (Auto) 5 Baso % (Auto) 0 Neut # (Auto) 3.9 Lymph # (Auto) 0.6 L [place] # (Auto) 0.3 Eos # (Auto) 0.3 Baso # (Auto) 0.0 Immature Gran # (Auto) 0.12 H Absolute Nucleated RBC 0.00 Immature Gran % 2 H Nucleated RBC % 0 Sodium 133 L Potassium 3.8 D Chloride 96 L Carbon Dioxide 29.8 Anion Gap 7 BUN 42 H Creatinine 5.4 H* D Estim Creat Clear Calc 21.9 L eGFR 12 L* BUN/Creatinine Ratio 8 L Glucose 109 H Calculated Osmolality 277 Calcium 9.7 Corrected Calcium 10.7 H Phosphorus 4.2 Magnesium 2.1 Total Bilirubin 1.8 H D AST 23 ALT 44 Alkaline Phosphatase 398 H D Total Protein 5.5 L Albumin 2.8 L Globulin 2.7 Albumin/Globulin Ratio 1.0 L Ur Collection Type Catheter Urine Color Yellow Urine Clarity Clear Urine pH 8.5 H Ur Specific [place] 1.007 Urine Protein 1+ A Urine Glucose (UA) 1+ A Urine Ketones Negative Urine Blood 3+ A Urine Nitrite Negative Urine Bilirubin Negative Urine Urobilinogen (Auto) Negative Ur Leukocyte Esterase Negative Urine RBC 10 H Urine WBC 2 Ur Squamous Epith Cells 1 Urine Bacteria None Misc Test Result Platelets confirmed Quality Measures Quality Measures none Assessment & Plan Assessment Current Active Medications: Generic Name Dose Route Start Last Admin Trade Name Freq PRN Reason Stop Dose Admin Acetaminophen 650 mg 12/31/24 09:07 01/05/25 03:15 Acetaminophen 325 Mg Tablet PO 01/29/25 18:29 650 mg Q6H PRN Administration Fever >100.3 Dextrose 25 ml 12/31/24 02:53 01/04/25 06:42 Dextrose 50%-Water Inj 50 Ml Syringe IV 01/30/25 02:52 25 ml Q15MIN PRN Administration BG 50-70 responsive npo pt Dextrose 50 ml 12/31/24 02:53 Dextrose 50%-Water Inj 50 Ml Syringe IV 01/30/25 02:52 Q15MIN PRN BG <50 OR BG <70 & pt unresponsive Diphenhydramine HCl 25 mg 01/01/25 10:59 01/05/25 23:51 Diphenhydramine 25 Mg Capsule PO 01/31/25 10:58 25 mg Q6HR PRN Administration ITCHING Glucagon 1 mg 12/31/24 02:53 Glucagon Inj 1 Mg Vial IM Q15MIN PRN BG <70, and no IV access Albumin Human 25 gm in 100 mls @ 100 mls/min 01/05/25 08:00 01/06/25 11:43 Albuminar-25 Ivpb IV Infused PRN PRN Infusion DIALYSIS Cefazolin Sodium 2 gm in 100 mls @ 100 mls/hr 01/06/25 09:15 01/06/25 11:45 Ancef 2gm Ivpb IV 01/13/25 09:14 100 mls/hr Q48H MARIANO Administration Levothyroxine Sodium 112 mcg 12/31/24 06:00 01/06/25 05:01 Levothyroxine Sodium 112 Mcg Tablet PO 01/30/25 05:59 112 mcg ACBR MARIANO Administration Midodrine 10 mg 01/04/25 14:30 01/06/25 04:53 Midodrine 5 Mg Tablet PO 02/03/25 14:29 Not Given TID MARIANO Ondansetron HCl 4 mg 12/30/24 18:30 Ondansetron Inj 2 Mg/Ml Inj 2 Ml IV 01/29/25 18:29 Q6H PRN NAUSEA OR VOMITING Protocol Ursodiol 300 mg 01/05/25 13:30 01/06/25 11:45 Ursodiol 300 Mg Capsule PO 02/04/25 13:29 300 mg QID MARIANO Administration Vitamin B Complex/Vit C/Folic Acid 1 tab 12/31/24 09:00 01/06/25 11:45 Vit B12/Vit C/Fa (Nephrovite) Tablet PO 01/30/25 08:59 1 tab QDAY MARIANO Administration Plan Sincere Weaver is a 59-year-old male with a past medical history of hypothyroidism, chronic left lower extremity dermatitis, ESRD on HD (M/W/F) following Dr. Cotton, chronic anemia secondary to CKD who was admitted on 12/30 for chronic osteomyelitis of the anterior tibial shaft for which he is to continue IV antibiotics for 6 weeks. He was planned for discharge but was found to be hypoglycemic and repeat EKG showed bigeminy with PACs vs MAT vs 2nd degree heart block for which cardiology was consulted. #EKG with bigeminy with PACs vs MAT vs 2nd degree heart block EKG on 01/03 shows bigeminy and normal sinus rhythm, but with at least two different P-wave morphologies, easiest to see in V1 with noted prolonged SD interval of 250. Upon further evaluation of lead II, every other R-R interval marches out regularly with at least two different P-wave morphologies seen, suggestive of an atrial foci in addition to the ROACH. Possible to have MAT, but patient is not tachycardic. 2nd degree heart block unlikely as each P wave is associated with QRS complex and no dropped beats noted. ? Pending cardiac echo to evaluate for possible LA enlargement #Hyperbilirubinemia #Transaminitis #Chronic osteomyelitis of left lower extremity #Chronic LLE ulcer #Bilateral chronic venous stasis #ESRD on HD (M/W/F) #Chronic anemia, likely secondary to ESRD, in setting of chronic leg ulcers #Chronic thrombocytopenia, secondary to ESRD #Hypothyroidism ? Management of above conditions per primary team and other consultants ----- Patient was discussed with the Cardiology attending, Dr. Fatima. Thank you for allowing us to participate in the care of this patient. Jane Serna, PGY-2 Attending Provider Attestation/Addendum I have personally seen and examined the patient separately on the above date of service and discussed the plan of care with the resident. I reviewed the resident Dr. Mame Serna consultation progress note and agree with the resident findings and plan in the note above and have also edited the documentation to reflect my findings and plan. Initially consulted for abnormal EKG with possible heart block. Reviewed the EKG and there is no evidence of any heart blocks except for first-degree AV block. Review of the EKG showed normal sinus rhythm with frequent PACs versus possible MAC. Telemetry reviewed and showed frequent PACs now with a heart rate of 60s. No other arrhythmias noted. Treatment should include beta-hawk but patient blood pressure is on the lower side and is requiring midodrine for his dialysis sessions. Will hold off on the beta-hawk for now and can tartrate if the blood pressure is elevated. Juan Fatima M.D. Interventional Cardiology
[2025-01-06] MEDS: MIDODRINE 5 MG TABLET 10 MG PO ×2 (14:26→21:54)
--- NOTE | 2025-01-06 14:28 | PC.SS ---
SS was contacted by Dennis from Dialysis in regards to patients new Dialysis time for Thursday, Thu, Fridays at 11:50AM. SS provided patient with new Dialysis time.
--- NOTE | 2025-01-06 17:06 | PC.NURSE ---
Spoke to Dr Gallo to review current pts H/H level of 7.1/21.0. Per MD will receive blood transfusion along with dialysis tomorrow.
--- NOTE | 2025-01-06 18:08 | PC.NURSE ---
Patient keeps taking leads off. Put on multiple times. patient in room eating alert and oriented, gcs of 15. Will continue to monitor.
[2025-01-06] MEDS: DiphenhydrAMINE 25 MG CAPSULE PO (20:50)
[2025-01-07] VITALS (15 sets, daily range): BP systolic 95–141; BP diastolic 43–87; PULSE 58–86; RESP 17–18; TEMP 36.2–36.8; O2SAT 94–98
[2025-01-07] MEDS: LEVOTHYROXINE SODIUM 112 MCG TABLET PO (05:35)
[2025-01-07] MEDS: MIDODRINE 5 MG TABLET 10 MG PO (05:35)
[2025-01-07] MEDS: ursodioL 300 MG CAPSULE PO ×2 (05:35→12:05)
[2025-01-07] MEDS: DiphenhydrAMINE 25 MG CAPSULE PO (05:35)
[2025-01-07 06:26] LABS: Basophils % (Auto) 0 % (0-2.5); Eosinophils # (Auto) 0.3 Thou/mm3 (0.0-0.5); Eosinophils % (Auto) 7 % (0-10); Hematocrit 23.5 % (41.0-53.0); Immature Granulocytes % (Auto) 2 % (0-0); Lymphocytes # (Auto) 1.1 Thou/mm3 (1.0-4.8); Lymphocytes % (Auto) 22 % (10-50); Mean Corpuscular HGB Conc 33.2 g/dl (31.0-37.0); Mean Corpuscular Hemoglobin 31.6 pg (25.0-35.0); Mean Corpuscular Volume 95 fL (80-100); Monocytes # (Auto) 0.4 Thou/mm3 (0.0-0.8); Monocytes % (Auto) 8 % (0-12); Neutrophils # (Auto) 3.1 Thou/mm3 (1.8-7.7); Neutrophils % (Auto) 62 % (37-80); Nucleated Red Blood Cell % 0 /100 WBC (0); RDW Standard Deviation 58.9 fL (35.1-43.9); Red Blood Count 2.47 Miln/mm3 (4.50-5.90); White Blood Count 4.9 Thou/mm3 (3.8-10.6)
[2025-01-07 06:29] LABS: Hemoglobin 7.8 g/dL (13.5-16.0); Platelet Count 51 Thou/mm3 (140-440)
[2025-01-07 06:59] LABS: Alanine Aminotransferase 36 U/L (10-49); Albumin, Serum 3.1 gm/dL (3.5-5.0); Alkaline Phosphatase 364 U/L (46-116); Anion Gap 11 (7-16); Aspartate Amino Transferase 23 U/L (0-34); BUN/Creatinine Ratio 8 Ratio (12-20); Bilirubin,Total 1.4 mg/dL (0.3-1.2); Blood Urea Nitrogen 53 mg/dL (9-23); Calcium 9.4 mg/dL (8.3-10.6); Calcium (Corrected) 10.1 mg/dL (8.5-10.1); Carbon Dioxide 27.4 mMol/L (20.0-31.0); Chloride 96 mMol/L (98-107); Creatinine (Component) 6.3 mg/dL (0.6-1.3); Estimated Creatinine Clearance 18.8 mL/min (>60); Glucose 78 mg/dL (74-106); Magnesium 1.9 mg/dL (1.6-2.6); Osmolality,Calculated 281 (275-295); Phosphorous 3.7 mg/dL (2.4-5.1); Potassium 3.7 mMol/L (3.4-5.1); Sodium 134 mMol/L (136-145); Total Protein 6.1 gm/dL (5.7-8.2); eGFR 10 See Note
[2025-01-07 07:32] LABS: Slide Review Platelets confirmed
[2025-01-07] MEDS: EPOETIN ALFA INJ 1,000 UNIT/0.05 ML UNIT 10000 UNIT SC (10:28)
--- NOTE | 2025-01-07 11:02 | ESPR_ITS ---
Documentation for date of: 01/07/25 Subjective Subjective Interval history: No acute events overnight.?Patient seen and examined at bedside this AM. He received dialysis this morning.?Did not receive any blood as Hgb improved from 7.1 to 7.8. Labs and vitals were reviewed.?Maintained BP ranging 95/85 to 135/56. HR 60s with PVCs. Patient planned for discharge today. Echo pending official read, preliminary shows mild aortic stenosis and diastolic dysfunction. Instructed to follow up with Dr. Fatima in clinic. No further complaints at this time. Review of systems otherwise negative except what is mentioned above. Exam Vital Signs Temp Pulse Resp BP Pulse Ox O2 Del Method O2 Flow Rate 97.2 F 60 17 105/51 L 94 L Room Air 2 01/07/25 08:13 01/07/25 10:31 01/07/25 08:13 01/07/25 10:31 01/07/25 08:13 01/07/25 08:00 01/05/25 04:00 Narrative Exam General: AOx3, no acute distress, disheveled, able to speak full sentences HEENT: NC/AT, mucous membranes moist, bilateral sclera anicteric Cardiovascular: bigeminy rhythm appreciated, S1/S2 present, no murmurs appreciated Pulmonary: clear to auscultation bilaterally, no rales/rhonchi/wheezes Abdominal: soft, non-tender, non-distended, no rebound/guarding, normal bowel sounds present Musculoskeletal: LLE bandaged and more swollen than RLE Skin: bilateral chronic venous stasis, AV fistula in LUE, full body skin desquamation Neuro: CN II-XII intact, no focal deficits Objective Labs 01/07/25 05:27 01/07/25 05:27 Labs: Laboratory Results - last 24 hr 01/07/25 05:27 WBC 4.9 RBC 2.47 L Hgb 7.8 L Hct 23.5 L MCV 95 MCH 31.6 MCHC 33.2 RDW Std Deviation 58.9 H Plt Count 51 L Neut % (Auto) 62 Lymph % (Auto) 22 [place] % (Auto) 8 Eos % (Auto) 7 Baso % (Auto) 0 Neut # (Auto) 3.1 Lymph # (Auto) 1.1 [place] # (Auto) 0.4 Eos # (Auto) 0.3 Baso # (Auto) 0.0 Immature Gran # (Auto) 0.10 H Absolute Nucleated RBC 0.00 Immature Gran % 2 H Nucleated RBC % 0 Sodium 134 L Potassium 3.7 Chloride 96 L Carbon Dioxide 27.4 Anion Gap 11 BUN 53 H Creatinine 6.3 H* D Estim Creat Clear Calc 18.8 L eGFR 10 L* BUN/Creatinine Ratio 8 L Glucose 78 Calculated Osmolality 281 Calcium 9.4 Corrected Calcium 10.1 Phosphorus 3.7 Magnesium 1.9 Total Bilirubin 1.4 H AST 23 ALT 36 Alkaline Phosphatase 364 H D Total Protein 6.1 Albumin 3.1 L Globulin 3.0 Albumin/Globulin Ratio 1.0 L Misc Test Result Platelets confirmed Quality Measures Quality Measures none Assessment & Plan Assessment Current Active Medications: Generic Name Dose Route Start Last Admin Trade Name Freq PRN Reason Stop Dose Admin Acetaminophen 650 mg 12/31/24 09:07 01/05/25 03:15 Acetaminophen 325 Mg Tablet PO 01/29/25 18:29 650 mg Q6H PRN Administration Fever >100.3 Dextrose 25 ml 12/31/24 02:53 01/04/25 06:42 Dextrose 50%-Water Inj 50 Ml Syringe IV 01/30/25 02:52 25 ml Q15MIN PRN Administration BG 50-70 responsive npo pt Dextrose 50 ml 12/31/24 02:53 Dextrose 50%-Water Inj 50 Ml Syringe IV 01/30/25 02:52 Q15MIN PRN BG <50 OR BG <70 & pt unresponsive Diphenhydramine HCl 25 mg 01/01/25 10:59 01/07/25 05:35 Diphenhydramine 25 Mg Capsule PO 01/31/25 10:58 25 mg Q6HR PRN Administration ITCHING Glucagon 1 mg 12/31/24 02:53 Glucagon Inj 1 Mg Vial IM Q15MIN PRN BG <70, and no IV access Albumin Human 25 gm in 100 mls @ 100 mls/min 01/05/25 08:00 01/06/25 11:43 Albuminar-25 Ivpb IV Infused PRN PRN Infusion DIALYSIS Cefazolin Sodium 2 gm in 100 mls @ 100 mls/hr 01/06/25 09:15 01/06/25 11:45 Ancef 2gm Ivpb IV 01/13/25 09:14 100 mls/hr Q48H MARIANO Administration Levothyroxine Sodium 112 mcg 12/31/24 06:00 01/07/25 05:35 Levothyroxine Sodium 112 Mcg Tablet PO 01/30/25 05:59 112 mcg ACBR MARIANO Administration Midodrine 10 mg 01/04/25 14:30 01/07/25 05:35 Midodrine 5 Mg Tablet PO 02/03/25 14:29 10 mg TID MARIANO Administration Ondansetron HCl 4 mg 12/30/24 18:30 Ondansetron Inj 2 Mg/Ml Inj 2 Ml IV 01/29/25 18:29 Q6H PRN NAUSEA OR VOMITING Protocol Ursodiol 300 mg 01/05/25 13:30 01/07/25 05:35 Ursodiol 300 Mg Capsule PO 02/04/25 13:29 300 mg QID MARIANO Administration Vitamin B Complex/Vit C/Folic Acid 1 tab 12/31/24 09:00 01/07/25 08:50 Vit B12/Vit C/Fa (Nephrovite) Tablet PO 01/30/25 08:59 Not Given QDAY MARIANO Plan Sincere Weaver is a 59-year-old male with a past medical history of hypothyroidism, chronic left lower extremity dermatitis, ESRD on HD (M/W/F) following Dr. Cotton, chronic anemia secondary to CKD who was admitted on 12/30 for chronic osteomyelitis of the anterior tibial shaft for which he is to continue IV antibiotics for 6 weeks. He was planned for discharge but was found to be hypoglycemic and repeat EKG showed bigeminy with PACs vs MAT vs 2nd degree heart block for which cardiology was consulted. #EKG with bigeminy with PACs vs MAT vs 2nd degree heart block EKG on 01/03 shows bigeminy and normal sinus rhythm, but with at least two different P-wave morphologies, easiest to see in V1 with noted prolonged MI interval of 250. Upon further evaluation of lead II, every other R-R interval marches out regularly with at least two different P-wave morphologies seen, suggestive of an atrial foci in addition to the ROACH. Possible to have MAT, but patient is not tachycardic. 2nd degree heart block unlikely as each P wave is associated with QRS complex and no dropped beats noted. ? Echo showed mild aortic stenosis, normal EF but stage 1 diastolic dysfunction ? Follow up with Dr. Fatima in clinic, instructions given, follow up official read #Hyperbilirubinemia #Transaminitis #Chronic osteomyelitis of left lower extremity #Chronic LLE ulcer #Bilateral chronic venous stasis #ESRD on HD (M/W/F) #Chronic anemia, likely secondary to ESRD, in setting of chronic leg ulcers #Chronic thrombocytopenia, secondary to ESRD #Hypothyroidism ? Management of above conditions per primary team and other consultants ----- Patient was discussed with the Cardiology attending, Dr. Fatima. Thank you for allowing us to participate in the care of this patient. Jane Serna, PGY-2 Attending Provider Attestation/Addendum I have personally seen and examined the patient separately on the above date of service and discussed the plan of care with the resident. I reviewed the resident Dr. Rogelio Quezada consultation progress note and agree with the resident findings and plan in the note above and have also edited the documentation to reflect my findings and plan. Patient doing well today and wants to be discharged. No evidence of any heart blocks on telemetry and still continues to have borderline low blood pressure and is on midodrine 3 times daily. If BP pressure is elevated then we will start the metoprolol XL for the frequent PACs for assessment. No need for anticoagulation. Echo showed normal LV size and function with an EF of 55 to 60% normal RV size and function. Indeterminate diastolic function but also has aortic stenosis which is at least mild or moderate as diuretic velocity is probably underestimated and will need a repeat limited echo which can be done as outpatient 2. Patient recommended to follow-up with me in the clinic in the next 7 to 10 days. Normal left ventricular size and function. Mild to moderate LVH. Estimated EF 55-60%. Diastolic dysfunction indeterminate. RV not well visualized. RV function appears normal. Mild TR but RVSP could not be estimated. Moderately thickened and calcified aortic valve. Mild aortic stenosis. Possibly underestimated AV velocity and will need to get a limited echo to reevaluate the aortic stenosis. Moderate posterior MAC with mild anterior MAC. Mild thickening of mitral leaflets. Juan Fatima M.D. Interventional Cardiology
--- NOTE | 2025-01-07 12:21 | ESPR_ITS ---
Documentation for date of: 01/07/25 Subjective Subjective Interval history: Mr. Weaver is a 59-year-old male with a known history of ESRD on hemodialysis (HD) thrice weekly (Thursday/Thursday/Thursday), under the care of Dr. Cotton for the past 11 years. He presented to the ED with generalized weakness and worsening of a chronic left lower extremity ulcer, which has been present for approximately 2.5 years. He reports being at baseline until 3 days ago, when he began experiencing generalized weakness without associated fever, nausea, or vomiting. He endorses that he scratched his left leg, which led to an ulcerative lesion at the site. The patient states he has been intermittently seen by wound care and has been managing the wound at home with antiseptics. He also reports chronic venous stasis for over 8 years with progressive worsening of the ulcer over the past 2 years. He previously attempted evaluation for renal transplantation but was not listed due to elevated body weight. The patient missed his most recent dialysis session scheduled for 12/30/2024 due to worsening weakness. His last dialysis session was on 12/28/2024. Initial vitals: BP 104/52 mmHg, HR 78 bpm, RR 20/min, Temp 98.2?F, SpO? 100% on room air Laboratory results: Sodium 134, potassium 4.4, chloride 94, BUN 46, creatinine 8.1, EGFR 7, TIBC 99, iron saturation 71, CRP 13.3, Pro-Calc 2.17, WBC 4.3, Hgb 7.0, PLT 58. Cultures are pending, currently on DILAUDID and ZOSYN. PMHx: ESRD on HD, hypothyroidism, chronic venous stasis, chronic anemia PSHx: Left upper extremity AV fistula placement MEDS: Pending med rec no need for any surgical intervention. Patient wants to follow-up with wound care center.- ALLERGIES: Adhesive tape FHx: Not significant SH: Denies tobacco, alcohol or drug use Nephrology was consulted for inpatient hemodialysis. 01/01/2025 patient currently seen in medical floor. Resting comfortably. Still having significant discomfort in the lower extremities. He has a huge ulcers on the left leg. Seen by surgeon-if he is not discharged-he will need dialysis tomorrow. 01/02/2025 examined at bedside. Complaining of lower extremity pain. Bilaterally skin desquamation improved with wound care. CT showed osteomyelitis of the left lower extremity, surgery on board, pending ID recommendation. Advised against central line, contraindicated with HD. Can do ABX thru HD cath. 01/03/2025 Examined at bedside. Reports no new or worsening of symptoms. CR 5.4, BUN 35, EGFR 12. Will do 6 weeks of IV ROCEPHIN and VANCO with HD per ID recs. Complained of recurrent hypoglycemia episodes, recommended DIAZOXIDE PRN on d/c. 01/04/2025 Examined at bedside. Denies fever, chills, headaches, chest pain, sob, cough, GI or urinary symptoms. CR 7.0, BUN 49, GFR 8, sodium 130, chloride 94. Has diffuse erythematous rash on exam, suggestive of red man syndrome following VANCOMYCIN which was discontinued. 01/05/2025 examined at bedside. Complaining of dry mouth likely secondary to BENADRYL IV, rash overall improving, left upper extremity Doppler negative for DVT 24-hour blood culture negative. CT showed cirrhosis with splenomegaly, cholelithiasis, end-stage [place] [facility], atrophic left transplanted kidney. Sodium 129, CR 7.8, BUN 59, GFR 7. Plan for hemodialysis today. 01/06/2025 examined at bedside. Doing well today. Rash improved significantly, but has some itching. Had bowel movement today with some urine output. CR 5.4, BUN 42, EGFR 12, sodium 133, potassium 3.8, Hgb 7.1, PLT 53, no leukocytosis. Primary team planning discharge today. Will schedule HD tomorrow 01/07 and resume MWF next week. 01/07/2025 examined at bedside in HD room. No new or worsening symptoms. Erythematous rash and itching improved, has mild desquamation throughout. Sodium 134, BUN 53, CR 6.3, EGFR 10. Hemodialysis today. Exam Vital Signs Temp Pulse Resp BP Pulse Ox O2 Del Method O2 Flow Rate 97.4 F 61 17 106/48 L 94 L Room Air 97 01/07/25 11:31 01/07/25 11:31 01/07/25 11:31 01/07/25 11:31 01/07/25 08:13 01/07/25 08:00 01/07/25 11:31 Narrative Exam General: Awake. HEENT: Normocephalic, atraumatic, mucous membranes moist. Heart: Regular rate and rhythm, no murmurs. Lungs: Clear to auscultation with no wheezing or crackles. Abdomen: Soft, nondistended, nontender, positive bowel sounds. ?No guarding or rebound tenderness. Neurologic: Alert and oriented x3, no gross neurological deficit, and patient able to move all 4 extremities. Extremities: Bilateral chronic venous stasis. Chronic ulcer with necrotic patch of approximately 5 x 10 x 7 cm noted on the anterior expected of left lower leg, ulceration noted on the lateral side of the leg, induration noted in the entire left lower extremity. Skin: Diffuse desquamation. Objective Labs 01/07/25 05:27 01/07/25 05:27 Labs: Laboratory Results - last 24 hr 01/07/25 05:27 WBC 4.9 RBC 2.47 L Hgb 7.8 L Hct 23.5 L MCV 95 MCH 31.6 MCHC 33.2 RDW Std Deviation 58.9 H Plt Count 51 L Neut % (Auto) 62 Lymph % (Auto) 22 [place] % (Auto) 8 Eos % (Auto) 7 Baso % (Auto) 0 Neut # (Auto) 3.1 Lymph # (Auto) 1.1 [place] # (Auto) 0.4 Eos # (Auto) 0.3 Baso # (Auto) 0.0 Immature Gran # (Auto) 0.10 H Absolute Nucleated RBC 0.00 Immature Gran % 2 H Nucleated RBC % 0 Sodium 134 L Potassium 3.7 Chloride 96 L Carbon Dioxide 27.4 Anion Gap 11 BUN 53 H Creatinine 6.3 H* D Estim Creat Clear Calc 18.8 L eGFR 10 L* BUN/Creatinine Ratio 8 L Glucose 78 Calculated Osmolality 281 Calcium 9.4 Corrected Calcium 10.1 Phosphorus 3.7 Magnesium 1.9 Total Bilirubin 1.4 H AST 23 ALT 36 Alkaline Phosphatase 364 H D Total Protein 6.1 Albumin 3.1 L Globulin 3.0 Albumin/Globulin Ratio 1.0 L Misc Test Result Platelets confirmed Quality Measures Quality Measures none Assessment & Plan Assessment Current Active Medications: Generic Name Dose Route Start Last Admin Trade Name Freq PRN Reason Stop Dose Admin Acetaminophen 650 mg 12/31/24 09:07 01/05/25 03:15 Acetaminophen 325 Mg Tablet PO 01/29/25 18:29 650 mg Q6H PRN Administration Fever >100.3 Dextrose 25 ml 04/12/25 02:53 01/04/25 06:42 Dextrose 50%-Water Inj 50 Ml Syringe IV 01/30/25 02:52 25 ml Q15MIN PRN Administration BG 50-70 responsive npo pt Dextrose 50 ml 12/31/24 02:53 Dextrose 50%-Water Inj 50 Ml Syringe IV 01/30/25 02:52 Q15MIN PRN BG <50 OR BG <70 & pt unresponsive Diphenhydramine HCl 25 mg 01/01/25 10:59 01/07/25 05:35 Diphenhydramine 25 Mg Capsule PO 01/31/25 10:58 25 mg Q6HR PRN Administration ITCHING Glucagon 1 mg 12/31/24 02:53 Glucagon Inj 1 Mg Vial IM Q15MIN PRN BG <70, and no IV access Albumin Human 25 gm in 100 mls @ 100 mls/min 01/05/25 08:00 01/06/25 11:43 Albuminar-25 Ivpb IV Infused PRN PRN Infusion DIALYSIS Cefazolin Sodium 2 gm in 100 mls @ 100 mls/hr 01/06/25 09:15 01/06/25 11:45 Ancef 2gm Ivpb IV 01/13/25 09:14 100 mls/hr Q48H MARIANO Administration Levothyroxine Sodium 112 mcg 12/31/24 06:00 01/07/25 05:35 Levothyroxine Sodium 112 Mcg Tablet PO 01/30/25 05:59 112 mcg ACBR MARIANO Administration Midodrine 10 mg 01/04/25 14:30 01/07/25 05:35 Midodrine 5 Mg Tablet PO 02/03/25 14:29 10 mg TID MARIANO Administration Ondansetron HCl 4 mg 12/30/24 18:30 Ondansetron Inj 2 Mg/Ml Inj 2 Ml IV 01/29/25 18:29 Q6H PRN NAUSEA OR VOMITING Protocol Ursodiol 300 mg 01/05/25 13:30 01/07/25 12:05 Ursodiol 300 Mg Capsule PO 02/04/25 13:29 300 mg QID MARIANO Administration Vitamin B Complex/Vit C/Folic Acid 1 tab 12/31/24 09:00 01/07/25 08:50 Vit B12/Vit C/Fa (Nephrovite) Tablet PO 01/30/25 08:59 Not Given QDAY MARIANO Plan 59-year-old male with PMHx of ESRD HD MWF, hypothyroidism, chronic left lower extremity ulcer, chronic anemia, recurrent GI bleed and biweekly transfusions, presenting with worsening left extremity pain. Admitted for cellulitis of left lower extremity with laceration. Hemodialysis today. Resume HD MWF start next week. ESRD HD MWF Anemia of chronic disease Recurrent blood transfusions History of ESRD. Has recurrent GI bleed with biweekly blood transfusions--patient under the care of Dr. Azar and Dr. Ervin from [facility] Sodium 134, CR 6.3, BUN 53, GFR 10. Hgb 7.8. 24-hour blood culture negative. ? HD today ? ABX with HD ? Daily labs Left lower extremity osteomyelitis, cellulitis superimposed on Chronic Left lower extremity ulcer with eschar-no need for surgical intervention per surgeon Bilateral chronic venous stasis. Chronic anemia, likely secondary to ESRD, in setting of chronic leg ulcers. Chronic Thrombocytopenia, secondary to ESRD. Hypothyroidism. ? Managed by primary team ? Avoid VANCOMYCIN, concern for red man syndrome, rash improving Thank you for the opportunity to participate in the patient's care. Case was discussed with attending, Dr. Cotton. Sherine Hinds DO PGYI Attending Provider Attestation/Addendum Patient seen and examined with resident physician Dr. Basurto. Note reviewed, agree with findings and recommendations. Admitted with weakness, significant in left leg ulcers with oozing Patient had a rapid response for low blood pressure. Noted to have significant erythema in the entire body with rash. Suspect red man syndrome. Spoke to Dr. Lauren-given steroid, Benadryl IV. Hold dialysis today. Hold blood transfusion today. Patient with osteomyelitis of the left leg. Will need antibiotics for 6 weeks will be given at the dialysis. 01/07/2025?markedly improved. Now with a scaly skin Patient currently seen on dialysis. Tolerating dialysis without any problems. AV fistula cannulated. Hemodialysis for 3 hours, 2K, ultrafiltration 2-3 L, Epogen 6000, no heparin ordered. Plan of care discussed with the dialysis nurse. Please see dialysis flowsheet for further details.
--- NOTE | 2025-01-07 13:19 | ESDS_ITS ---
<Statement entered by Kimberly Lauren DO - 01/08/25 07:50> I, Kimberly Lauren DO, attest that I was physically present for the [place] portions of the service and evaluated the patient with the resident and I reviewed and discussed the case with the resident and agree with the resident's findings and plans of care as documented above Planned Discharge Date 01/07/25 DS: Providers Provider Date of admission: 12/30/24 18:31 Primary care physician: Shad Cotton MD Admitting Provider: Farrah Aviles MD Attending Provider on Admission: Kimberly Lauren DO Consults: 12/30/24 17:50 Referral Wound Care Stat Comment: 12/30/24 17:51 Consult to Nephrology Stat Comment: ESRD, leg infection Consulting Provider: Shad Cotton 12/30/24 18:40 Consult to General Surgery Routine Comment: celluitis with chronic ulcer with necrotic patch Consulting Provider: Emerson Lozano 01/02/25 08:16 Consult to Infectious Diseases Stat Comment: osteomyelitis Consulting Provider: Jerrod Melissa 01/02/25 14:59 Referral OP Wound Healing Dept Routine Comment: Left lower leg venous ulcer 01/04/25 07:33 Consult to Cardiology Routine Comment: Consulting Provider: Juan Fatima 01/05/25 07:57 Consult to Gastroenterology Stat Comment: cholestasis Consulting Provider: Karthik Ibanez 01/06/25 10:20 Referral Physical Therapy Stat Comment: Physician Instructions: Attending Provider on DC: Christopher Cooper MD Discharging Provider: Christopher Cooper MD DS: Diagnosis Problem List Completed Was Problem List Reviewed/Reconciled?: Yes Hospital Course Hospital Course Hospital course: The patient is a 59 years old male with a PMH of ESRD on hemodialysis (Thursday/Thursday/Thursday), hypothyroidism, chronic LLE wound presented to the ED with generalized weakness and worsening of a chronic left lower extremity ulcer, which has been present for approximately 2.5 years. He reports being at baseline until 3 days ago, when he began experiencing generalized weakness without associated fever, nausea, or vomiting. He endorses that he scratched his left leg, which led to an ulcerative lesion at the site. The patient states he has been intermittently seen by wound care and has been managing the wound at home with antiseptics. Initial vitals were BP 104/52 mmHg, HR 78 bpm, RR 20/min, Temp 98.2?F, SpO2 100% on room air. Labs showed Sodium 134, potassium 4.4, chloride 94, BUN 46, creatinine 8.1, EGFR 7, TIBC 99, iron saturation 71, CRP 13.3, Pro- Calc 2.17, WBC 4.3, Hgb 6.9, PLT 58. Cultures are pending, currently on DILAUDID and ZOSYN. Total 4 unit of pRBC was transfused. He was evaluated by general surgery but no surgical intervention was recommended. Nephrology was consulted for inpatient hemodialysis. CT showed osteomyelitis of the left lower extremity. ID recommended 6 weeks of IV ROCEPHIN and VANCO with HD, however he developed significant itchiness and red rash concerning for red man syndrome and vancomycin was discontinued. During hospital stay he had rapid response called due to hypotension and was started on Midodrine. His bilirubin started going up and peaked at 6.1, GI was consulted and he was started on ursodiol and bilirubin decreased to 1.4, transaminitis has resolved. Per ID antibiotics were changed to cefazolin and will need to be continued for total of 6 weeks. He is stable for discharge today. Problems list: #Hypotension, improved. #Suspicion of adrenal insufficiency. #Hyperbilirubinemia, imroved. #Transaminitis, resolved. #Chronic osteomyelitis of left lower extremity. #Left lower extremity cellulitis superimposed on #Chronic Left lower extremity ulcer. #Bilateral chronic venous stasis. #Bigeminy, resolved. #ESRD on HD [M/W/F]. # Chronic anemia, likely secondary to ESRD, in setting of chronic leg ulcers. # Chronic Thrombocytopenia, secondary to ESRD. # Hypothyroidism. Recommendations: -Follow-up with PCP within 1 week of discharge. If you do not have appointment, please follow-up with the [facility] with Dr. Gallo. Call [phone] to make an appointment. -repeat CBC in 2 weeks or earlier if symptoms of anemia recur. -Follow up with Dr. Cotton for Hemodialysis. -cefazolin 2 gm IV with HD overall for 6 weeks from initiation untill February 11, 2025. -Continue rest of the home medications. -Use benadryl cream for itchiness up to 2 times a day as needed. -Start taking midodrine 10 mg 2 times a day. Monitor your blood pressure daily. -Recommended salt and fluid restriction. -Return to ED if symptoms persist or return. Plan of care discussed with attending Dr. Lauren. Christopher Cooper MD, PGY 2. Disclaimer: This note was dictated by speech recognition. Minor errors in engineering and operations director may be present due to voice recognition software. Time Spent with Patient Time attestation: Total time spent providing and/or coordinating discharge services: Time spent: Greater than 30 minutes Exam Vital Signs Temp Pulse Resp BP Pulse Ox O2 Del Method O2 Flow Rate 97.7 F 86 18 141/87 H 96 Room Air 97 01/07/25 12:00 01/07/25 12:00 01/07/25 12:01/07/25 12:01/07/25 12:01/07/25 12:01/07/25 11:31 Narrative Exam Gen: Well-developed obese male. HEENT: NCAT, PERRLA, EOMI, MMM, anicteric conjunctivae. CVS: normal S1 and S2. RRR. No M/R/G. Resp: CTA B/L. No rhonchi, rales, crackles or wheezing. Abd: soft, non-tender, non-distended. BS+ in all 4 quadrants. MSK: Good ROM in BUE & BLE. Bilateral chronic venous stasis dermatitis, dressing at the site of ulcer over LLE and is clean, AV fistula noted on left upper extremity. Neuro: CN II-XII grossly intact. Strength 5/5 in BUE & BLE. Alert and oriented x3. Psych: appropriate mood and affect. Discharge Plan Plan Patient Disposition: HOME (Self Care) Disposition Comment: Stable Patient condition on transfer: Stable Care Plan Goals: -Follow-up with PCP within 1 week of discharge. If you do not have appointment, please follow-up with the [facility] with Dr. Gallo. Call [phone] to make an appointment. -repeat CBC in 2 weeks or earlier if symptoms of anemia recur. -Follow up with Dr. Cotton for Hemodialysis. -cefazolin 2 gm IV with HD overall for 6 weeks from initiation untill February 11, 2025. -Continue rest of the home medications. -Use benadryl cream for itchiness up to 2 times a day as needed. -Start taking midodrine 10 mg 2 times a day. Monitor your blood pressure daily. -Recommended salt and fluid restriction. -Return to ED if symptoms persist or return. Follow up at [facility], [address] [place] [address]. Call [phone] for appointment. -May shower than change dressing. -Wash hands and remove dressing. -Cleanse wound with wound cleanser spray and pat dry. -Wash hands again. - Apply thin layer of therahoney gel to wound bed. Layer with adaptic gauze than ABD pad. -Wrap with kerlix roll than apply removable compressions. - Change daily and as needed for falling off. If active bleeding occurs, apply tight dressing and return to MD or ER. ? Notify primary doctor or return to Emergency Room if any of the following: ? Fever above 100.6? F. ? Increased pain ? Increase swelling ? Red streaks around your wound ? Drainage becomes foul smelling or changes color ? The wound is larger or deeper ? The wound looks dried out or dark ? Bleeding that does not stop with holding pressure Prescriptions/Referrals Prescriptions/Med Rec: New Anti-Itch (diphenhydramine) 2 % gel 1 applic topical BID PRN (Reason: itching) Qty: 118 0RF midodrine 10 mg tablet 10 mg PO BID Qty: 60 0RF Rx Instructions: do not give last dose of day after 6PM or within 4 hrs of bedtime Continued furosemide 40 mg Tablet 40 mg PO QDAY carvedilol 12.5 mg Tablet 12.5 mg PO BID Rx Instructions: must administer with a meal/food levothyroxine 100 mcg tablet 112 mcg PO DAILY diphenhydramine HCl [Benadryl] 25 mg Capsule 25 mg PO TID PRN (Reason: Itching) Mere-Martín Rx 1-60-300 mg-mg-mcg tablet 1 tab PO QDAY Patient Comments: TAKE 1 TABLET BY MOUTH DAILY Velphoro 500 mg tablet,chewable 500 mg PO QID Patient Comments: CHEW AND SWALLOW 1 TABLET BY MOUTH FOUR TIMES DAILY WITH FOOD Mere-Martín 0.8 mg Tablet 1 tab PO QDAY Qty: 30 0RF Referrals: Shad Cotton MD [Primary Care Provider] - Patient/Caregiver Discharge Instructions Education Materials: Nutrition for Wound Healing, Kidney Disease Potassium in Diet, Kidney Disease Fluid Intake, Changing Dressing Dc, Wound Care Dc Print Language: Guamanian Stand Alone Forms: Bridget Award Info., Patient Portal Info Letter Discharge Order Discharge Orders: Discharge (Routine); Ordered 01/07/25 Ordered By: Christopher Cooper Quality Discharge Quality Measures VTE prophylaxis
== END 2025-01-07 14:35 | disposition home or self-care (01) | DRG 539 ==
LOC: SERX 16:14 → SERHOLD 18:43 → S3NX 22:37
PROVIDERS: Nurse Practitioner Family; Student in an Organized Health Care Education/Training Program; Admitting Provider Student in an Organized Health Care Education/Training Program; Emergency Provider Emergency Medicine; PCP Internal Medicine; Visit Provider Internal Medicine
DX: M86.662 Other chronic osteomyelitis, left tibia and fibula (principal); N18.6 End stage renal disease; L03.116 Cellulitis of left lower limb; L97.929 Non-pressure chronic ulcer of unspecified part of left lower leg with unspecified severity; I12.0 Hypertensive chronic kidney disease with stage 5 chronic kidney disease or end stage renal disease; K80.21 Calculus of gallbladder without cholecystitis with obstruction; K92.2 Gastrointestinal hemorrhage, unspecified; Z94.0 Kidney transplant status; K74.60 Unspecified cirrhosis of liver; D63.1 Anemia in chronic kidney disease; E03.9 Hypothyroidism, unspecified; E66.01 Morbid (severe) obesity due to excess calories; I87.8 Other specified disorders of veins; D69.6 Thrombocytopenia, unspecified; E16.2 Hypoglycemia, unspecified; Z99.2 Dependence on renal dialysis; I44.1 Atrioventricular block, second degree; Z76.82 Awaiting organ transplant status; Z79.890 Hormone replacement therapy; R00.8 Other abnormalities of heart beat; Z68.38 Body mass index [BMI] 38.0-38.9, adult; I95.9 Hypotension, unspecified; R21 Rash and other nonspecific skin eruption; Z79.899 Other long term (current) drug therapy; R16.2 Hepatomegaly with splenomegaly, not elsewhere classified
CPT/HCPCS: 36415; 36430; 71045; 73590; 73700; 74176; 76700; 80053; 80061; 80074; 80202; 81001; 82248; 82530; 82533; 82607; 82746; 83036; 83540; 83550; 83605; 83735; 83880; 83970; 84100; 84132; 84145; 84443; 84484; 85014; 85018; 85025; 85610; 85652; 85730; 86140; 86706; 86850; 86870; 86900; 86901; 86902; 86921; 86922; 87040; 87081; 87086; 93005; 93306; 93971; 96365; 96367; 96375; 99285; J0689; J0696; J1100; J2470; J2543; J3370; J3372; J3475; J3490; J7030; J7070; P9016; P9047; Q4081; Q5105; S8037; 74181; A9270

== ENCOUNTER 2025-01-17 11:06 | Emergency (ER) | payer MEDICARE, MEDICAID, SELFPAY ==
[2025-01-17] VITALS (17 sets, daily range): BP systolic 92–144; BP diastolic 35–74; PULSE 70–81; RESP 16–28; TEMP 36.4–37.2; O2SAT 91–99; BMI 39.3
--- NOTE | 2025-01-17 11:34 | PD.EDRME ---
Rapid Medical Screening Exam RME Arrival date/time: 01/17/25 11:06 59-year-old male presents to the emergency department today for complaints of generalized fatigue patient requesting blood transfusion Chief Complaint: Weakness Vital signs: Vital Signs Temperature 97.8 F 01/17/25 11:21 Pulse Rate 74 01/17/25 11:21 Respiratory Rate 22 H 01/17/25 11:21 Blood Pressure 104/66 01/17/25 11:21 Pulse Oximetry (%) 96 01/17/25 11:21 Oxygen Delivery Method Room Air 01/17/25 11:21
[2025-01-17 12:03] LABS: Basophils # (Auto) 0.1 Thou/mm3 (0.0-0.2); Basophils % (Auto) 1 % (0-2.5); Eosinophils # (Auto) 0.2 Thou/mm3 (0.0-0.5); Eosinophils % (Auto) 6 % (0-10); Immature Granulocytes % (Auto) 0 % (0-0); Immature Granulocytes Auto 0.01 Thou/mm3 (0.00-0.00); Lymphocytes % (Auto) 25 % (10-50); Mean Corpuscular HGB Conc 33.1 g/dl (31.0-37.0); Mean Corpuscular Volume 100 fL (80-100); Monocytes # (Auto) 0.4 Thou/mm3 (0.0-0.8); Monocytes % (Auto) 9 % (0-12); Neutrophils # (Auto) 2.4 Thou/mm3 (1.8-7.7); Neutrophils % (Auto) 59 % (37-80); Nucleated Red Blood Cell % 0 /100 WBC (0); RDW Standard Deviation 70.9 fL (35.1-43.9); White Blood Count 4.1 Thou/mm3 (3.8-10.6)
[2025-01-17 12:14] LABS: Hematocrit 18.1 % (41.0-53.0); Platelet Count 73 Thou/mm3 (140-440)
[2025-01-17 12:15] LABS: Red Blood Count 1.82 Miln/mm3 (4.50-5.90)
[2025-01-17 12:19] LABS: INR 1.2 (0.9-1.3); Partial Thromboplastin Time 33.3 Seconds (22.0-36.0); Prothrombin Time 13.3 Seconds (9.0-12.2)
[2025-01-17 12:23] LABS: Alanine Aminotransferase < 7 U/L (10-49); Albumin, Serum 3.1 gm/dL (3.5-5.0); Albumin/Globulin Ratio 0.8 (1.2-2.2); Alkaline Phosphatase 147 U/L (46-116); Anion Gap 7 (7-16); Aspartate Amino Transferase 18 U/L (0-34); Bilirubin,Total 0.8 mg/dL (0.3-1.2); Blood Urea Nitrogen 29 mg/dL (9-23); Calcium 8.3 mg/dL (8.3-10.6); Chloride 94 mMol/L (98-107); Globulin 4.1 gm/dL (2.3-3.5); Glucose 74 mg/dL (74-106); Osmolality,Calculated 271 (275-295); Potassium 4.1 mMol/L (3.4-5.1); Sodium 133 mMol/L (136-145); Total Protein 7.2 gm/dL (5.7-8.2)
[2025-01-17 12:34] LABS: BUN/Creatinine Ratio 6 Ratio (12-20); Creatinine (Component) 4.6 mg/dL (0.6-1.3); eGFR 14 See Note
[2025-01-17 13:32] LABS: Slide Review Platelets confirmed
--- NOTE | 2025-01-17 13:38 | PC.NURSE ---
PT SENT TO ER BY PCP FOR LOW H/H. PT'S VS STABLE; PT IS A DIALYSIS PT AND HAS WOUNDS ON LLE, WOUND CENTER HAS DRESSING IN PLACE. WILL CONT TO MONITOR.
--- NOTE | 2025-01-17 13:44 | PD.EDADULT ---
ED General RME/HPI General Chief complaint: Weakness Stated complaint: LOW h&H Time Seen by Provider: 01/17/25 13:15 Arrival date/time: 01/17/25 11:06 CC: Generalized weakness HPI patient was informed by wound management that his blood hemoglobin was low, patient is chronically anemic secondary to hemodialysis, it was reported come to the emergency patient's room for transfusion. Patient denies chest pain shortness of breath or difficulty breathing. Patient is dialyzed Thursday and Thursday had a full session of dialysis yesterday. Patient was at wound management for open ulcerations on his left foot and his sacral ulcers. Patient is awake alert oriented no other complaints RME / HPI RME / HPI narrative: 01/17/25 11:06 59-year-old male presents to the emergency department today for complaints of generalized fatigue patient requesting blood transfusion Related Data Home Medications ?Medication ?Instructions ?Recorded ?Confirmed diphenhydramine HCl 25 mg capsule 25 mg PO TID PRN Itching 08/20/22 03/31/24 (Benadryl) vitamin B comp no.3-folic acid 1 1 tab PO QDAY 08/20/22 03/31/24 mg-vit C 60 mg-biotin 300 mcg tablet ([facility] Rx) sucroferric oxyhydroxide 500 mg 500 mg PO QID 10/03/22 03/31/24 chewable tablet (Velphoro) carvedilol 12.5 mg tablet 12.5 mg PO BID 08/04/23 03/31/24 furosemide 40 mg tablet 40 mg PO QDAY 08/04/23 03/31/24 levothyroxine 100 mcg tablet 112 mcg PO DAILY 08/04/23 03/31/24 Previous Rx's ?Medication ?Instructions ?Recorded vitamin B complex-vitamin C-folic 1 tab PO QDAY #30 tabs 01/11/23 acid 0.8 mg tablet (Mere-Martín) diphenhydramine HCl 2 % topical 1 applic topical BID PRN itching 01/07/25 gel (Anti-Itch (diphenhydramine)) #118 mL midodrine 10 mg tablet 10 mg PO BID #60 tabs 01/07/25 Allergies Allergy/AdvReac Type Severity Reaction Status Date / Time adhesive tape Allergy Severe Rash Verified 01/17/25 11:11 Review of Systems Review of Systems Narrative Review of Systems: GEN: No fever, no chills, no weight loss EYES: No discharge, no visual changes, no pain HEENT: No ear pain, no congestion, no sore throat PULM: No shortness of breath, no cough, no congestion CV: No chest pain, no dyspnea on exertion, no palpitations GI: No nausea, no vomiting, no diarrhea, no pain, no constipation : No frequency, no urgency, no dysuria MUSC/SKEL: No joint pain, no back pain SKIN: No rash PSYCH: No hallucinations, no depression HEME/LYMPH: No easy bleeding or bruising tendencies NEURO: + weakness, no headache ED Exam Narrative Physical exam: [General: Obese not in any acute distress Head normocephalic HEENT: Within acceptable limits Neck is supple nontender Chest equal chest rise nontender to palpation Respiratory: Clear to auscultation no wheezes crackles or rubs CV: Rate rhythm is regular no murmurs rubs or clicks Abdomen is distended secondary to body habitus soft nontender no masses positive bowel sounds all 4 quadrants Back: No CVA tenderness no spinous process tenderness from cervical spine thoracic and lumbar spine Skin: Left foot is covered in a dressing from wound management from this morning and did not break this down. Sacral ulcerations. Otherwise skin is intact no petechiae rash induration ulceration or crepitus left upper arm shunt clean dry and intact good thrill. Extremities: Moving all extremity against resistance cap refill less than 2 seconds neurosensory intact Neuro: Awake alert oriented x3 Glascow coma 15 no focal deficits] Course Quality Measures none Orders Category Date Time Status Insert IV NOW Care 01/17/25 11:33 Active Transfuse,blood/blood products NOW Care 01/17/25 11:33 Active CBC Stat Lab 01/17/25 11:50 Completed Comprehensive Metabolic Panel Stat Lab 01/17/25 11:50 Completed Partial Thromboplastin Time Stat Lab 01/17/25 11:50 Completed Prothrombin Time with INR Stat Lab 01/17/25 11:50 Completed Type and Screen Stat Lab 01/17/25 11:50 Completed prbc [Red Blood Cells] Stat Lab 01/17/25 11:50 Completed Vital Signs Vital signs: Vital Signs Temperature 97.8 F 01/17/25 11:21 Pulse Rate 74 01/17/25 11:21 Respiratory Rate 22 H 01/17/25 11:21 Blood Pressure 104/66 01/17/25 11:21 Pulse Oximetry (%) 96 01/17/25 11:21 Oxygen Delivery Method Room Air 01/17/25 11:21 Discharge Plan Plan Patient Disposition: HOME (Self Care) Patient condition on transfer: Stable Prescriptions/Referrals Prescriptions/Med Rec: No Action furosemide 40 mg Tablet 40 mg PO QDAY carvedilol 12.5 mg Tablet 12.5 mg PO BID Rx Instructions: must administer with a meal/food levothyroxine 100 mcg tablet 112 mcg PO DAILY Anti-Itch (diphenhydramine) 2 % gel 1 applic topical BID PRN (Reason: itching) Qty: 118 0RF midodrine 10 mg tablet 10 mg PO BID Qty: 60 0RF Rx Instructions: do not give last dose of day after 6PM or within 4 hrs of bedtime diphenhydramine HCl [Benadryl] 25 mg Capsule 25 mg PO TID PRN (Reason: Itching) Mere-Martín Rx 1-60-300 mg-mg-mcg tablet 1 tab PO QDAY Patient Comments: TAKE 1 TABLET BY MOUTH DAILY Velphoro 500 mg tablet,chewable 500 mg PO QID Patient Comments: CHEW AND SWALLOW 1 TABLET BY MOUTH FOUR TIMES DAILY WITH FOOD Mere-Martín 0.8 mg Tablet 1 tab PO QDAY Qty: 30 0RF Referrals: No Primary/Family,Physician [Primary Care Provider] - In 1 week Problem List Clinical Impression: Anemia, ESRD on hemodialysis, Obesities, morbid, Thrombocytopenia Patient/Caregiver Discharge Instructions Education Materials: Anemia Print Language: Canadian Stand Alone Forms: Bridget Award Info., Work/School Release, Patient Portal Info Letter PA/ASPHALT SPREADER Supervising Physician PA/ASPHALT SPREADER Supervising Physician: Dejan Damian ENCasimiro MDM Patient Acuity High Acuity (complete MDM) Clinical Information Provided by: patient Medical Records reviewed [facility] Chronic Illness/Social Conditions Explain: ESRD dialysis EKG EKG not done Labs Lab(s) Interpretation(s): CBC shows WBC of 4.1 H&H of 6.0 and 18.1 respectively platelets at 73. Coags show PT of 13.3 INR 1.2 PTT of 33.3 CMP shows a sodium 133 chloride of 94 carbon oxide of 32 gap of 7 BUN of 29 creatinine 4.6 no transaminitis or T. bili elevation. Diagnosis Differential Diagnosis ED Complaint MDM: Hemorrhagic anemia, pernicious anemia, microcytic anemia
--- NOTE | 2025-01-17 18:18 | PC.NURSE ---
PT IS ANXIOUS AND GETS WORKED UP EVERY TIME THE BLOOD PRESSURE MONITOR TAKES HIS BP. PT YELLS AND CRIES. PT IS NOT HAPPY.
== END 2025-01-17 20:58 | disposition home or self-care (01) ==
PROVIDERS: Nurse Practitioner Primary Care; Emergency Provider Emergency Medicine
DX: N18.6 End stage renal disease (principal); E66.01 Morbid (severe) obesity due to excess calories; E11.22 Type 2 diabetes mellitus with diabetic chronic kidney disease; D63.1 Anemia in chronic kidney disease; D69.6 Thrombocytopenia, unspecified; Z99.2 Dependence on renal dialysis
CPT/HCPCS: 36415; 36430; 80053; 85025; 85610; 85730; 86850; 86900; 86901; 86902; 86921; 86922; 99285; P9016

== ENCOUNTER → 2025-01-17 | Outpatient (CLI) | payer MEDICARE, MEDICAID, SELFPAY | END | disposition home or self-care (01) | PROVIDERS: PCP Internal Medicine; Referring Provider Internal Medicine; Visit Provider Student in an Organized Health Care Education/Training Program | DX: L97.822 Non-pressure chronic ulcer of other part of left lower leg with fat layer exposed (principal); L98.492 Non-pressure chronic ulcer of skin of other sites with fat layer exposed; L89.322 Pressure ulcer of left buttock, stage 2; L89.312 Pressure ulcer of right buttock, stage 2; L97.422 Non-pressure chronic ulcer of left heel and midfoot with fat layer exposed; I10 Essential (primary) hypertension; E66.9 Obesity, unspecified; N18.6 End stage renal disease; M86.8X9 Other osteomyelitis, unspecified sites; D69.6 Thrombocytopenia, unspecified; G62.9 Polyneuropathy, unspecified | CPT/HCPCS: 11042; 11045 ×20; 99213; A9270; G0463 ==

== ENCOUNTER → 2025-01-24 | Outpatient (CLI) | payer MEDICARE, MEDICAID, SELFPAY | END | disposition home or self-care (01) | LOC: SWHD 10:14 | PROVIDERS: PCP Internal Medicine; Referring Provider Internal Medicine; Visit Provider Surgery | DX: L97.822 Non-pressure chronic ulcer of other part of left lower leg with fat layer exposed (principal); L89.322 Pressure ulcer of left buttock, stage 2; L89.312 Pressure ulcer of right buttock, stage 2; L97.422 Non-pressure chronic ulcer of left heel and midfoot with fat layer exposed; I10 Essential (primary) hypertension; E66.9 Obesity, unspecified; N18.6 End stage renal disease; M86.8X9 Other osteomyelitis, unspecified sites; D69.6 Thrombocytopenia, unspecified; G92.9 Unspecified toxic encephalopathy | CPT/HCPCS: 11042; 11045 ×5; A9270 ==

== ENCOUNTER 2025-01-26 18:07 | Emergency (ER) | payer MEDICARE, MEDICAID, SELFPAY ==
--- NOTE | 2025-01-26 18:30 | PD.EDRME ---
Rapid Medical Screening Exam RME Arrival date/time: 01/26/25 18:07 59-year-old male ESRD on dialysis presents emergency department requesting blood transfusion Chief Complaint: Recheck/Abnormal Lab/Rx Time Seen by Provider: 01/26/25 18:22
[2025-01-26 18:50] VITALS: BP 107/59; PULSE 100; RESP 18; TEMP 36.8; O2SAT 95
[2025-01-26 19:01] LABS: Basophils % (Auto) 1 % (0-2.5); Eosinophils # (Auto) 0.2 Thou/mm3 (0.0-0.5); Eosinophils % (Auto) 5 % (0-10); Immature Granulocytes % (Auto) 0 % (0-0); Immature Granulocytes Auto 0.01 Thou/mm3 (0.00-0.00); Lymphocytes # (Auto) 0.6 Thou/mm3 (1.0-4.8); Lymphocytes % (Auto) 14 % (10-50); Mean Corpuscular HGB Conc 33.7 g/dl (31.0-37.0); Mean Corpuscular Hemoglobin 32.5 pg (25.0-35.0); Mean Corpuscular Volume 96 fL (80-100); Monocytes # (Auto) 0.4 Thou/mm3 (0.0-0.8); Monocytes % (Auto) 8 % (0-12); Neutrophils # (Auto) 3.4 Thou/mm3 (1.8-7.7); Neutrophils % (Auto) 73 % (37-80); Nucleated Red Blood Cell % 0 /100 WBC (0); RDW Standard Deviation 67.7 fL (35.1-43.9); Red Blood Count 1.97 Miln/mm3 (4.50-5.90); White Blood Count 4.6 Thou/mm3 (3.8-10.6)
[2025-01-26 19:07] LABS: Platelet Count 79 Thou/mm3 (140-440)
[2025-01-26 19:10] LABS: Hemoglobin 6.4 g/dL (13.5-16.0); Slide Review Platelets confirmed
[2025-01-26 19:17] LABS: Alanine Aminotransferase < 7 U/L (10-49); Albumin, Serum 3.2 gm/dL (3.5-5.0); Albumin/Globulin Ratio 0.7 (1.2-2.2); Alkaline Phosphatase 92 U/L (46-116); Anion Gap 8 (7-16); Aspartate Amino Transferase 28 U/L (0-34); BUN/Creatinine Ratio 5 Ratio (12-20); Bilirubin,Total 0.5 mg/dL (0.3-1.2); Blood Urea Nitrogen 24 mg/dL (9-23); Calcium 8.9 mg/dL (8.3-10.6); Calcium (Corrected) 9.5 mg/dL (8.5-10.1); Carbon Dioxide 30.4 mMol/L (20.0-31.0); Chloride 94 mMol/L (98-107); Globulin 4.6 gm/dL (2.3-3.5); Glucose 83 mg/dL (74-106); Osmolality,Calculated 267 (275-295); Potassium 4.4 mMol/L (3.4-5.1); Sodium 132 mMol/L (136-145); Total Protein 7.8 gm/dL (5.7-8.2); eGFR 13 See Note
[2025-01-26 19:28] LABS: INR 1.2 (0.9-1.3); Partial Thromboplastin Time 27.5 Seconds (22.0-36.0); Prothrombin Time 13.2 Seconds (9.0-12.2)
--- NOTE | 2025-01-26 22:00 | PC.NURSE ---
CONSENT FOR BLOOD TRANSFUSION WAS OBTAINED AT 2200, PATIENT VERBALIZES UNDERSTANDING AND HAS NO QUESTIONS. CONSENT PLACED WITH CHART.
[2025-01-26 22:16] VITALS: BP 99/70; PULSE 83; RESP 19; TEMP 36.8; O2SAT 94; BMI 40.3
[2025-01-26 22:42] VITALS: BP 105/52; PULSE 78; RESP 17; TEMP 36.5; O2SAT 96
[2025-01-26 23:02] VITALS: BP 115/60; PULSE 78; RESP 16; TEMP 36.6; O2SAT 96
[2025-01-26 23:17] VITALS: BP 96/59; PULSE 77; RESP 18; TEMP 36.6; O2SAT 95
[2025-01-27 00:07] VITALS: BP 119/53; PULSE 82; RESP 19; TEMP 36.4; O2SAT 98
--- NOTE | 2025-01-27 00:41 | PD.EDADULT ---
ED General RME/HPI General Chief complaint: Recheck/Abnormal Lab/Rx Stated complaint: NEED TRANSFUSION FOR ANEMIA Time Seen by Provider: 01/26/25 18:22 Arrival date/time: 01/26/25 18:07 59-year-old male with a past medical history of end-stage renal disease on dialysis as well as anemia presents to the ED with a complaint plaint of abnormal labs and needing a blood transfusion. He has frequent ED admissions for transfusions. He has weakness and fatigue. He denies any recent illness with fever, chills, cough, upper respiratory complaints. He also denies any nausea, vomiting, diarrhea or abdominal pain. His dialysis is on Thursday, Thursday, Fridays Mode of arrival: ambulatory RME / HPI RME / HPI narrative: 01/26/25 18:07 59-year-old male ESRD on dialysis presents emergency department requesting blood transfusion Related Data Home Medications ?Medication ?Instructions ?Recorded ?Confirmed diphenhydramine HCl 25 mg capsule 25 mg PO TID PRN Itching 08/20/22 02/10/25 (Benadryl) vitamin B comp no.3-folic acid 1 1 tab PO QDAY 08/20/22 02/10/25 mg-vit C 60 mg-biotin 300 mcg tablet ([facility] Rx) sucroferric oxyhydroxide 500 mg 500 mg PO QID 10/03/22 02/10/25 chewable tablet (Velphoro) carvedilol 12.5 mg tablet 12.5 mg PO BID 08/04/23 02/10/25 Held on 02/11/25. Instructions: Resume on 02/17/25. Hold until follow up with primary care physician furosemide 40 mg tablet 40 mg PO QDAY 08/04/23 02/10/25 levothyroxine 112 mcg tablet 112 mcg PO ACBR 02/10/25 02/10/25 Allergies Allergy/AdvReac Type Severity Reaction Status Date / Time adhesive tape Allergy Severe Rash Verified 03/30/25 18:47 Review of Systems Review of Systems Systems Reviewed: All systems reviewed, normal except as documented Past Medical History Past Medical History NEUROLOGIC: Positive Neurological Disorders and Peripheral Neuropathy CARDIAC: Positive Cardiac Disorders, Hypertension and Hypotension RESPIRATORY: Positive Sleep Apnea GASTROINTESTINAL: Positive Gastrointestinal Disorders, Gastrointestinal Bleed, Ulcer and Obesity GENITOURINARY: Positive Genitourinary Disorders, Renal Disease and Dialysis ENDOCRINE: Positive Endocrine Disorders HEMATOLOGIC: Positive Blood Disorders and Anemia PSYCHO/SOCIAL: Positive Depression and Anxiety OTHER HISTORY: Positive Chicken Pox Family History FAMILY HISTORY: Positive Family Psychiatric Problems and Family Respiratory Disorders; Negative Family Cardiac Disorders, Family Gastrointestinal Problems, Family Cancer, Family Surgery or Family Anesthesia Reaction Surgical History SURGICAL: Positive Tonsillectomy; Negative Cardiac Surgery, Open Heart Surgery, Coronary Artery Bypass Graft, Valve Replacement, Coronary Stent, Cardiac Catheterization, Pacemaker, Angiogram, Auto Implanted Cardiovert Defib, Carotid Endarterectomy, Endocrine Surgery, Thyroidectomy, Ear Surgery, Tympanostomy Tube, Eye Surgery, Nose Surgery, Oral Surgery, Adenoidectomy, Cochlear Implant, Corneal Transplant, Throat Surgery, Abdominal Surgery, Tracheostomy, Gastric Bypass Surgery, Gastrostomy, Bowel Surgery, Nephrectomy, Transurethral Resection, Joint Replacement, Amputation, Open Reduction Internal Fixation, Arthroscopy, Neurologic Surgery, Brain Shunt or Vasectomy Social History SMOKING STATUS: Never smoker SUBSTANCE USE: does not use ALCOHOL: Never ED Exam Narrative Physical exam: Vitals: Reviewed General: Obese not in any acute distress. Disheveled appearance with odor noted. Head normocephalic HEENT: Within acceptable limits Neck is supple nontender Chest equal chest rise nontender to palpation Respiratory: Clear to auscultation no wheezes crackles or rubs CV: Rate rhythm is regularly irregular, holosystolic murmur noted Abdomen is distended secondary to body habitus soft nontender no masses positive bowel sounds all 4 quadrants Back: No CVA tenderness no spinous process tenderness from cervical spine thoracic and lumbar spine Skin: Left foot is covered in a dressing from wound management and did not break this down. Sacral ulcerations. Otherwise skin is intact no petechiae rash induration ulceration or crepitus left upper arm shunt clean dry and intact good thrill. Extremities: Moving all extremity against resistance cap refill less than 2 seconds neurosensory intact Neuro: Awake alert oriented x3 Glascow coma 15 no focal deficits] Course Course Course Narrative: Labs obtained which revealed a normal white count with severely decreased hemoglobin and hematocrit of 6.4/19.0. Platelets are also low at 79. He has mildly dehydrated with a sodium of 132 and chloride of 94. Potassium is normal at 4.4. Blood bank tests reveal O positive blood with negative antibody. 2 units of PRBCs ordered and is currently being transfused. Care of patient transferred to Dr. Gongora at the end of this provider shift. Quality Measures none Orders Category Date Time Status Insert IV NOW Care 01/26/25 18:29 Completed Transfuse,blood/blood products NOW Care 01/26/25 18:29 Completed Transfuse,blood/blood products NOW Care 01/26/25 18:30 Completed CBC Stat Lab 01/26/25 18:48 Completed Comprehensive Metabolic Panel Stat Lab 01/26/25 18:48 Completed Partial Thromboplastin Time Stat Lab 01/26/25 18:48 Completed Prothrombin Time with INR Stat Lab 01/26/25 18:48 Completed Type and Screen Stat Lab 01/26/25 18:48 Completed prbc [Red Blood Cells] Stat Lab 01/26/25 18:48 Completed Vital Signs Vital signs: Vital Signs Temperature 98.2 F 01/26/25 18:50 Pulse Rate 100 01/26/25 18:50 Respiratory Rate 18 01/26/25 18:50 Blood Pressure 107/59 L 01/26/25 18:50 Pulse Oximetry (%) 95 01/26/25 18:50 Oxygen Delivery Method Room Air 01/26/25 18:50 Discharge Plan Plan Patient Disposition: HOME (Self Care) Discharge Disposition comment: Stable and improved Patient condition on transfer: Stable Prescriptions/Referrals Prescriptions/Med Rec: No Action furosemide 40 mg Tablet 40 mg PO QDAY carvedilol 12.5 mg Tablet 12.5 mg PO BID Rx Instructions: must administer with a meal/food diphenhydramine HCl [Benadryl] 25 mg Capsule 25 mg PO TID PRN (Reason: Itching) Mere-[facility]ín Rx 1-60-300 mg-mg-mcg tablet 1 tab PO QDAY Patient Comments: TAKE 1 TABLET BY MOUTH DAILY Velphoro 500 mg tablet,chewable 500 mg PO QID Patient Comments: CHEW AND SWALLOW 1 TABLET BY MOUTH FOUR TIMES DAILY WITH FOOD levothyroxine 112 mcg tablet 112 mcg PO ACBR Referrals: No Primary/Family,Physician [Primary Care Provider] - In 1 week Problem List Clinical Impression: Anemia, ESRD on hemodialysis Patient/Caregiver Discharge Instructions Education Materials: ED Anemia Type Not Specified, ED Chronic Kidney Disease (CKD) Additional Instructions: Follow-up with your primary care doctor as needed. Feel free return to the emergency department if symptoms worsen or if you notice any new, concerning issues. Print Language: [place] Island[place] Stand Alone Forms: Bridget Award Info., Patient Portal Info Letter ALEKSANDR/VINCENT Supervising Physician ALEKSANDR/VINCENT Supervising Physician: Dr Gongora MDM Narrative Sign Out note: Care of patient transferred to Dr. Gongora at end of shift. [facility] hospital course (for use when minimal MDM required): 59-year-old male with a past medical history of end-stage renal disease on dialysis as well as anemia presents to the ED with a complaint plaint of abnormal labs and needing a blood transfusion. He has frequent ED admissions for transfusions. He has weakness and fatigue. He denies any recent illness with fever, chills, cough, upper respiratory complaints. He also denies any nausea, vomiting, diarrhea or abdominal pain. His dialysis is on Thursday, Thursday, Fridays. Exam reveals alert and oriented 59 yo male, no acute distress. Conjunctiva pale. Regular rate, Regularly irregular heart rhythm. Lungs are clear. Abdomen is soft and non-tender. Labs obtained which revealed a normal white count with severely decreased hemoglobin and hematocrit of 6.4/19.0. Platelets are also low at 79. He has mildly dehydrated with a sodium of 132 and chloride of 94. Potassium is normal at 4.4. Blood bank tests reveal O positive blood with negative antibody. 2 units of PRBCs ordered and is currently being transfused. Clinical Information Provided by: patient Medical Records reviewed [facility] Meds/Rx considered, not ordered None Labs/Rad/Tests considered, not ordered None Chronic Illness/Social Conditions which may negatively complicate care or outcome(s)-explain: Genetic/metabolic disorder Labs Labs: Interpreted by ok Lab(s) Interpretation(s): Labs revealed a normal white count with severely decreased hemoglobin and hematocrit of 6.4/19.0. Platelets are also low at 79. He has mildly dehydrated with a sodium of 132 and chloride of 94. Potassium is normal at 4.4. Blood bank tests reveal low positive blood with negative antibody. Imaging Imaging interpretation: none or see narrative above Medication Administration(s) none Diagnosis Differential Diagnosis ED Complaint MDM: Anemia of chronic renal disease, GI bleed, myelodysplastic syndrome.
[2025-01-27 01:21] VITALS: BP 110/74; PULSE 69; RESP 17; TEMP 36.6; O2SAT 97
--- NOTE | 2025-01-27 01:32 | PD.EDADDENDU ---
Emergency Room Addendum Addendum Narrative: 0000: Care assumed from Lakshmi Pang PA-C, the previous shift emergency physician. Past medical, surgical, social and family history reviewed. Vitals and home medications reviewed. Results and treatment plan discussed. I will assume the care of the patient at this time and will follow the patient, pending completion of blood transfusion. Please refer to the emergency department record for history and examination from initial visit. Observation began at 0000 and was necessary in order to monitor the patient for any adverse effects of the blood transfusion. Upon reevaluation, observation revealed that the patient should be discharged home. Patient has remained stable while under my care. Observation time ended 0404. Total time of observation 4 hours.
[2025-01-27 01:44] VITALS: BP 123/63; PULSE 69; RESP 17; TEMP 36.4; O2SAT 97
[2025-01-27 02:01] VITALS: BP 116/43; PULSE 71; RESP 18; TEMP 36.4; O2SAT 99
[2025-01-27 02:16] VITALS: BP 131/57; PULSE 78; RESP 18; TEMP 36.6; O2SAT 96
[2025-01-27 03:46] VITALS: BP 126/64; PULSE 68; RESP 18; TEMP 36.4; O2SAT 100
== END 2025-01-27 04:06 | disposition home or self-care (01) ==
PROVIDERS: Nurse Practitioner Primary Care; Emergency Provider Emergency Medicine
DX: I12.0 Hypertensive chronic kidney disease with stage 5 chronic kidney disease or end stage renal disease (principal); N18.6 End stage renal disease; D63.1 Anemia in chronic kidney disease; Z99.2 Dependence on renal dialysis
CPT/HCPCS: 36415; 36430; 80053; 85025; 85610; 85730; 86850; 86900; 86901; 86902; 86921; 86922; 99285; P9016

== ENCOUNTER 2025-02-06 16:36 | Emergency (ER) | payer MEDICARE, MEDICAID, SELFPAY ==
[2025-02-06 16:38] VITALS: BP 101/58; PULSE 105; RESP 20; TEMP 36.7; O2SAT 97; BMI 39.8
[2025-02-06 16:42] VITALS: PULSE 104; RESP 20; O2SAT 97
--- NOTE | 2025-02-06 19:43 | PD.EDWEAK ---
ED Weakness MARGARETE/HPI General Chief complaint: Weakness Stated complaint: WEAKNESS Time Seen by Provider: 02/06/25 21:21 Source: patient Arrival date/time: 02/06/25 16:36 Mode of arrival: wheelchair Limitations: no limitations MARGARETE / MAIDA HOGAN Complaint: generalized weakness Onset (ago): day(s) Related Data Home Medications ?Medication ?Instructions ?Recorded ?Confirmed diphenhydramine HCl 25 mg capsule 25 mg PO TID PRN Itching 08/20/22 02/10/25 (Benadryl) vitamin B comp no.3-folic acid 1 1 tab PO QDAY 08/20/22 02/10/25 mg-vit C 60 mg-biotin 300 mcg tablet ([facility] Rx) sucroferric oxyhydroxide 500 mg 500 mg PO QID 10/03/22 02/10/25 chewable tablet (Velphoro) carvedilol 12.5 mg tablet 12.5 mg PO BID 08/04/23 02/10/25 Held on 02/11/25. Instructions: Resume on 02/17/25. Hold until follow up with primary care physician furosemide 40 mg tablet 40 mg PO QDAY 08/04/23 02/10/25 levothyroxine 112 mcg tablet 112 mcg PO ACBR 02/10/25 02/10/25 Allergies Allergy/AdvReac Type Severity Reaction Status Date / Time adhesive tape Allergy Severe Rash Verified 02/10/25 12:15 ED Exam General Limitations: Present no limitations General appearance: Present alert and in no apparent distress Head Head exam: Present atraumatic Eye Eye exam: Present normal appearance and EOMI ENT ENT exam: Present normal exam Neck Neck exam: Present normal inspection and full ROM Chest Chest inspection: Present normal inspection Extremities Exam Extremities exam: Present full ROM (Patient demonstrates decreased range of motion secondary to difficulty ambulating due to his girth and the weakness in his legs.) Back Exam Back exam: Present normal inspection Neurological Exam Neurological exam: Present alert and oriented X3 Psychiatric Psychiatric exam: Present normal affect and normal mood Skin Skin exam: Present warm, dry and intact Course Course Course Narrative: Patient will have labs to include CBC, CMP, TYPE AND SCREEN. Quality Measures none Orders Category Date Time Status Transfuse,blood/blood products NOW Care 02/06/25 22:34 Completed CBC Stat Lab 02/06/25 20:24 Completed CMP [Comprehensive Metabolic Panel] Stat Lab 02/06/25 20:24 Completed Partial Thromboplastin Time Stat Lab 02/06/25 20:24 Completed Path Review Blood Smear Stat Lab 02/06/25 20:24 Completed Prothrombin Time with INR Stat Lab 02/06/25 20:24 Completed Type and Screen Stat Lab 02/06/25 20:24 Completed prbc [Red Blood Cells] Stat Lab 02/06/25 20:24 Completed Done Vital Signs Vital signs: Vital Signs Temperature 98.1 F 02/06/25 16:38 Pulse Rate 105 H 02/06/25 16:38 Respiratory Rate 20 02/06/25 16:38 Blood Pressure 101/58 L 02/06/25 16:38 Pulse Oximetry (%) 97 02/06/25 16:38 Oxygen Delivery Method Room Air 02/06/25 16:38 Pulse ox is 97% room air Weakness Patient data External records reviewed:: Other (specify) Clinical information provided by:: none Social determinants that could affect healthcare access:: none (Kidney failure) Patient has the following chronic illnesses:: Anemia How is presenting disease/condition affected by chronic disease/condition?: caused by Evaluation data The following diagnostics were reviewed and interpreted by me:: lab results Lab and/or radiology exams considered but not ordered:: N/A Interpretation Summary: Anemia Medications / Prescriptions Medications or Prescriptions considered but not ordered:: N/A Medication administrations:: N/A Consultations Consultation(s) initiated? (list below): No Diagnosis Weakness Differential Diagnosis: anemia and dehydration Most likely diagnosis given after review of the tests above:: Anemia Admission Indicated Admission indicated?: not indicated Admission Request Was there a request for admission?: No Disposition Plan Disposition Plan: other (specify) Discharge Plan Plan Patient Disposition: HOME (Self Care) Patient condition on transfer: Stable Prescriptions/Referrals Prescriptions/Med Rec: No Action furosemide 40 mg Tablet 40 mg PO QDAY carvedilol 12.5 mg Tablet 12.5 mg PO BID Rx Instructions: must administer with a meal/food diphenhydramine HCl [Benadryl] 25 mg Capsule 25 mg PO TID PRN (Reason: Itching) Mere-Martín Rx 1-60-300 mg-mg-mcg tablet 1 tab PO QDAY Patient Comments: TAKE 1 TABLET BY MOUTH DAILY Velphoro 500 mg tablet,chewable 500 mg PO QID Patient Comments: CHEW AND SWALLOW 1 TABLET BY MOUTH FOUR TIMES DAILY WITH FOOD levothyroxine 112 mcg tablet 112 mcg PO ACBR Referrals: Shad Cotton MD [Primary Care Provider] - In 1 week Problem List Clinical Impression: Anemia Patient/Caregiver Discharge Instructions Discharge Activity: activity as tolerated Education Materials: Anemia Print Language: Spanish Stand Alone Forms: Bridget Award Info., Patient Portal Info Letter PA/PRODUCTION SUPERVISOR TRAINEE Supervising Physician PA/PRODUCTION SUPERVISOR TRAINEE Supervising Physician: Solo Fuchs
[2025-02-06 20:58] LABS: Basophils % (Auto) 1 % (0-2.5); Eosinophils # (Auto) 0.1 Thou/mm3 (0.0-0.5); Eosinophils % (Auto) 4 % (0-10); Immature Granulocytes % (Auto) 0 % (0-0); Immature Granulocytes Auto 0.01 Thou/mm3 (0.00-0.00); Lymphocytes # (Auto) 0.5 Thou/mm3 (1.0-4.8); Lymphocytes % (Auto) 20 % (10-50); Mean Corpuscular HGB Conc 34.2 g/dl (31.0-37.0); Mean Corpuscular Hemoglobin 31.4 pg (25.0-35.0); Mean Corpuscular Volume 92 fL (80-100); Monocytes # (Auto) 0.3 Thou/mm3 (0.0-0.8); Monocytes % (Auto) 10 % (0-12); Neutrophils # (Auto) 1.6 Thou/mm3 (1.8-7.7); Neutrophils % (Auto) 64 % (37-80); Nucleated Red Blood Cell % 0 /100 WBC (0); Platelet Count 82 Thou/mm3 (140-440); RDW Standard Deviation 62.4 fL (35.1-43.9); Red Blood Count 1.69 Miln/mm3 (4.50-5.90)
[2025-02-06 21:06] LABS: Hematocrit 15.5 % (41.0-53.0); Hemoglobin 5.3 g/dL (13.5-16.0); White Blood Count 2.6 Thou/mm3 (3.8-10.6)
[2025-02-06 21:26] LABS: Alanine Aminotransferase < 7 U/L (10-49); Albumin, Serum 3.1 gm/dL (3.5-5.0); Albumin/Globulin Ratio 0.7 (1.2-2.2); Alkaline Phosphatase 90 U/L (46-116); Anion Gap 10 (7-16); Aspartate Amino Transferase 10 U/L (0-34); BUN/Creatinine Ratio 6 Ratio (12-20); Bilirubin,Total 0.3 mg/dL (0.3-1.2); Blood Urea Nitrogen 52 mg/dL (9-23); Calcium 8.6 mg/dL (8.3-10.6); Calcium (Corrected) 9.3 mg/dL (8.5-10.1); Carbon Dioxide 30.3 mMol/L (20.0-31.0); Chloride 97 mMol/L (98-107); Creatinine (Component) 8.4 mg/dL (0.6-1.3); Estimated Creatinine Clearance 14.3 mL/min (>60); Globulin 4.4 gm/dL (2.3-3.5); Glucose 94 mg/dL (74-106); Osmolality,Calculated 287 (275-295); Potassium 4.4 mMol/L (3.4-5.1); Sodium 137 mMol/L (136-145); Total Protein 7.5 gm/dL (5.7-8.2); eGFR 7 See Note
[2025-02-06 22:04] LABS: INR 1.2 (0.9-1.3); Partial Thromboplastin Time 36.2 Seconds (22.0-36.0)
[2025-02-07] VITALS (10 sets, daily range): BP systolic 111–141; BP diastolic 35–74; PULSE 60–89; RESP 13–161; TEMP 36.3–37.2; O2SAT 97–100
[2025-02-07 01:27] LABS: Path Review Blood Smear Sent to Pathologist
--- NOTE | 2025-02-07 06:43 | PD.EDADDENDU ---
Emergency Room Addendum <Aleena Canales - Last Filed: 02/07/25 08:33> Addendum Narrative: 0600: Care assumed from Dr. Fuchs, the previous shift emergency physician. Past medical, surgical, social and family history reviewed. Vitals and home medications reviewed. I will assume the care of the patient at this time, pending blood transfusion and final disposition. Please refer to the emergency department record for history and examination from initial visit.? Physical exam by me shows patient under no acute distress at this time. 0705: Patient remains clinically stable throughout the emergency department visit. Re-assessment at the time of disposition demonstrates that the patient is in no acute distress. We reviewed all the results, analysis, and treatment plans. Patient is amenable to discharge. Strict return precautions were outlined. Patient was discharged in stable condition. Diagnoses: - Anemia <Ko Teixeira MD - Last Filed: 02/07/25 17:52> Addendum Narrative: 0600: Care assumed from the physician assistant professor of business from yesterday evening. Patient was about to finish his second unit of packed red blood cells and was feeling good and ready to go home. Patient is supposed to be seeing her dairy husbandry teacher for dialysis later today. Please refer to the emergency department record for history and examination from initial visit.? Physical exam by me shows patient under no acute distress at this time. 0705: Patient remains clinically stable throughout the emergency department visit. Re-assessment at the time of disposition demonstrates that the patient is in no acute distress. We reviewed all the results, analysis, and treatment plans. Patient is amenable to discharge. Strict return precautions were outlined. Patient was discharged in stable condition. Diagnoses: Recurring severe anemia end-stage renal failure with dialysis. - Anemia Plan is to follow-up with dialysis later today. Patient was previously discharged prior to my assuming care of this patient.
== END 2025-02-07 07:08 | disposition home or self-care (01) ==
PROVIDERS: Physician Assistant; Emergency Provider Emergency Medicine; PCP Internal Medicine
DX: N18.6 End stage renal disease (principal); D63.1 Anemia in chronic kidney disease; Z99.2 Dependence on renal dialysis
CPT/HCPCS: 36415; 36430; 80053; 85025; 85610; 85730; 86850; 86900; 86901; 86902; 86921; 86922; 99285; P9016

== ENCOUNTER 2025-02-10 12:12 | Inpatient (IN) | payer MEDICARE, MEDICAID, SELFPAY ==
[2025-02-10] VITALS (26 sets, daily range): BP systolic 113–163; BP diastolic 45–74; PULSE 62–72; RESP 18–99; TEMP 36.3–36.6; O2SAT 93–100; BMI 39.8; BMI 39.5; BMI 39.7
--- NOTE | 2025-02-10 12:42 | PD.EDRECHK ---
ED Recheck Abnl Lab Rx-RME/HPI General Chief Complaint: Recheck/Abnormal Lab/Rx Stated Complaint: CALLED YESTERDAY AND TOLD [facility] 6.1 Time Seen by Provider: 02/10/25 12:13 Arrival date/time: 02/10/25 12:12 RME / HPI RME / HPI narrative: 59-year-old male patient with significant history of chronic anemia secondary to end-stage renal disease, came in for evaluation regarding request for blood transfusion. Patient was told that hemoglobin was 6.1 days ago. Went to dialysis center and was told to come to the emergency room for possible blood transfusion and hemodialysis at the same time. Patient complaint is generalized body weakness denies any shortness of breath denies any bleeding or vomiting blood. Related Data Home Medications ?Medication ?Instructions ?Recorded ?Confirmed diphenhydramine HCl 25 mg capsule 25 mg PO TID PRN Itching 08/20/22 03/31/24 (Benadryl) vitamin B comp no.3-folic acid 1 1 tab PO QDAY 08/20/22 03/31/24 mg-vit C 60 mg-biotin 300 mcg tablet ([facility]) sucroferric oxyhydroxide 500 mg 500 mg PO QID 10/03/22 03/31/24 chewable tablet (Velphoro) carvedilol 12.5 mg tablet 12.5 mg PO BID 08/04/23 03/31/24 furosemide 40 mg tablet 40 mg PO QDAY 08/04/23 03/31/24 levothyroxine 100 mcg tablet 112 mcg PO DAILY 08/04/23 03/31/24 Previous Rx's ?Medication ?Instructions ?Recorded vitamin B complex-vitamin C-folic 1 tab PO QDAY #30 tabs 01/11/23 acid 0.8 mg tablet (Mere-[facility]) diphenhydramine HCl 2 % topical 1 applic topical BID PRN itching 01/07/25 gel (Anti-Itch (diphenhydramine)) #118 mL midodrine 10 mg tablet 10 mg PO BID #60 tabs 01/07/25 Allergies Allergy/AdvReac Type Severity Reaction Status Date / Time adhesive tape Allergy Severe Rash Verified 02/10/25 12:15 Review of Systems Review of Systems Narrative Review of Systems: Review of system reviewed and within normal limits except mentioned in HPI ED Exam Narrative Physical exam: VITAL SIGNS: Reviewed. GENERAL APPEARANCE: Alert and interactive, follows commands, no acute distress, HEAD AND FACE: Non-traumatic. ENT: PERRL, pale conjunctiva, eyelid no trauma, Mucous membrane moist. NECK: Supple, nontender, no nuchal rigidity. CHEST: No tenderness, no crepitus, no paradoxical movement, no retractions. LUNGS: Clear, well ventilated, symmetric, no rales, no wheezing, no ronchi, no stridor, good breath sounds bilaterally. HEART: Regular rate, regular rhythm, no murmur, no gallops. ABDOMEN: Soft, positive bowel sounds, nondistended, no guarding, nontender, no rebound, no masses, RECTAL: Deferred. GENITAL: Deferred. NEUROLOGICAL: Gross motor function intact sensory function intact, Appropriate for age. MUSCULOSKELETAL: low back nontender, full range of motion. EXTREMITIES: Nontender, full range of motion. +2 bilateral lower extremity edema with dressings SKIN: Color pale, dry, no rash, no lacerations, no abrasions, no contusions. LYMPHATICS: Deferred. Course Quality Measures none Orders Category Date Time Status COVID-19 Screening Questionnaire NOW Care 02/10/25 16:12 Active Decision to Admit X1 Care 02/10/25 16:12 Completed Transfuse,blood/blood products ONCE Care 02/10/25 12:40 Active Consult to Nephrology Stat Cons 02/10/25 15:50 Ordered CBC [CBC] Stat Lab 02/10/25 13:26 Completed CMP [Comprehensive Metabolic Panel] Stat Lab 02/10/25 13:26 Completed Type and Screen Stat Lab 02/10/25 13:26 Results prbc [Red Blood Cells] Stat Lab 02/10/25 13:26 Results Vital Signs Vital signs: Vital Signs Temperature 97.8 F 02/10/25 12:45 Pulse Rate 69 02/10/25 12:45 Blood Pressure 128/71 02/10/25 12:45 Pulse Oximetry (%) 98 02/10/25 12:45 Oxygen Delivery Method Room Air 02/10/25 12:45 Recheck / Abnormal Lab / Rx MDM Narrative MDM Narrative:: 59-year-old male patient with significant history of chronic anemia secondary to end-stage renal disease, came in for evaluation regarding request for blood transfusion. Patient was told that hemoglobin was 6.1 days ago. Went to dialysis center and was told to come to the emergency room for possible blood transfusion and hemodialysis at the same time. Patient complaint is generalized body weakness denies any shortness of breath denies any bleeding or vomiting blood. Patient's hemoglobin was noted to be 6.0, potassium 5.6 BUN 62 creatinine 10.1 Patient will receive 3 units of packed RBC during hemodialysis. Case discussed with Dr. Cotton who told me to admit the patient by the hospitalist Discussed case with hospitalist who admitted the patient. Plan discussed with the patient who agrees to be admitted Patient data External records reviewed:: None Clinical information provided by:: patient Social determinants that could affect healthcare access:: none Patient has the following chronic illnesses:: ESRD, chronic anemia How is presenting disease/condition affected by chronic disease/condition?: exacerbated by Evaluation data The following diagnostics were reviewed and interpreted by me:: lab results Lab and/or radiology exams considered but not ordered:: None Interpretation Summary: See results MDM Medications / Prescriptions Medications or Prescriptions considered but not ordered:: None Medication administrations:: Medication Administration History Acetaminophen (Acetaminophen 325 Mg Tablet) 650 mg PO Q6H PRN PRN Reason: Pain 1-3 and Fever >100.4 Stop: 03/12/25 16:47 Hydrocodone Bitart/Acetaminophen (Hydrocodone/Apap 5/325 Tablet) 1 tab PO Q4HR PRN PRN Reason: PAIN SCALE 4-10(Mod-Sev Stop: 02/15/25 16:47 Epoetin Leonard (Epoetin Leonard Inj 1,000 Unit/0.05 Ml Unit) 10,000 unit SC X1 ONE Stop: 02/10/25 20:01 Ondansetron HCl (Ondansetron Inj 2 Mg/Ml Inj 2 Ml) 4 mg IVP Q6H PRN; Protocol PRN Reason: NAUSEA OR VOMITING Stop: 03/12/25 16:47 None Consultations Consultation(s) initiated? (list below): No Diagnosis Recheck Differential Diagnosis: other (Anemia, ESRD, needing hemodialysis, anemia of chronic disease) Most likely diagnosis given after review of the tests above:: Anemia, ESRD needing dialysis Admission Indicated Admission indicated?: indicated Admission Request Was there a request for admission?: Yes Admission Attestation Admission request attestation: Discussed case with [Dr. Curiel] from Hospitalist service regarding admission. Discussed patients ED course, exam findings, labs, and radiology results. The Hospitalist [agrees to accept the patient for admission. Disposition Plan Disposition Plan: Admit Discharge Plan Plan Patient Disposition: Admit Acute Care w/in Hospital Problem List Clinical Impression: Anemia, ESRD on hemodialysis Patient/Caregiver Discharge Instructions Discharge Activity: activity as tolerated
[2025-02-10 13:50] LABS: Basophils % (Auto) 1 % (0-2.5); Eosinophils # (Auto) 0.1 Thou/mm3 (0.0-0.5); Eosinophils % (Auto) 2 % (0-10); Immature Granulocytes % (Auto) 0 % (0-0); Immature Granulocytes Auto 0.01 Thou/mm3 (0.00-0.00); Lymphocytes # (Auto) 0.4 Thou/mm3 (1.0-4.8); Lymphocytes % (Auto) 10 % (10-50); Mean Corpuscular HGB Conc 35.1 g/dl (31.0-37.0); Mean Corpuscular Hemoglobin 31.7 pg (25.0-35.0); Mean Corpuscular Volume 91 fL (80-100); Monocytes # (Auto) 0.3 Thou/mm3 (0.0-0.8); Monocytes % (Auto) 8 % (0-12); Neutrophils # (Auto) 2.7 Thou/mm3 (1.8-7.7); Neutrophils % (Auto) 79 % (37-80); Nucleated Red Blood Cell % 0 /100 WBC (0); RDW Standard Deviation 58.4 fL (35.1-43.9); Red Blood Count 1.89 Miln/mm3 (4.50-5.90); White Blood Count 3.4 Thou/mm3 (3.8-10.6)
[2025-02-10 14:19] LABS: Alanine Aminotransferase < 7 U/L (10-49); Albumin, Serum 3.1 gm/dL (3.5-5.0); Albumin/Globulin Ratio 0.7 (1.2-2.2); Alkaline Phosphatase 76 U/L (46-116); Anion Gap 14 (7-16); Aspartate Amino Transferase 11 U/L (0-34); BUN/Creatinine Ratio 6 Ratio (12-20); Bilirubin,Total 0.4 mg/dL (0.3-1.2); Blood Urea Nitrogen 62 mg/dL (9-23); Calcium 8.3 mg/dL (8.3-10.6); Carbon Dioxide 24.5 mMol/L (20.0-31.0); Chloride 97 mMol/L (98-107); Estimated Creatinine Clearance 11.9 mL/min (>60); Globulin 4.6 gm/dL (2.3-3.5); Glucose 76 mg/dL (74-106); Osmolality,Calculated 286 (275-295); Potassium 5.6 mMol/L (3.4-5.1); Sodium 135 mMol/L (136-145); Total Protein 7.7 gm/dL (5.7-8.2); eGFR 5 See Note
[2025-02-10 15:00] LABS: Hematocrit 17.1 % (41.0-53.0); Platelet Count 75 Thou/mm3 (140-440)
[2025-02-10 15:26] LABS: Creatinine (Component) 10.1 mg/dL (0.6-1.3)
[2025-02-10 15:48] LABS: Slide Review Platelets confirmed
--- NOTE | 2025-02-10 16:36 | PC.NURSE ---
Patient is politely refusing IV at this time as he would like to get his blood transfusion with his dialysis
--- NOTE | 2025-02-10 16:59 | PD.RESHP ---
Documentation for date of: 02/10/25 HPI History of Present Illness Chief complaint: weakness, fatigue, low Hgb History of present illness: 59-year-old male with past medical history of ESRD (HD on //), hypothyroidism, chronic left lower extremity wound, and anemia of chronic disease was admitted to the hospital on 02/10/2025 after coming to the ED with complaints of weakness, fatigue, and low hemoglobin. On assessment patient stated that he has been chronically anemic and he has been requiring multiple transfusions of blood due to low hemoglobin. He stated that today he got a call from his hemodialysis center where they told him that his hemoglobin was too low and that he needed to come to the ER for blood transfusion. Patient also stated that he has been feeling too weak and to fatigue lately and has barely been able to walk due to this weakness. Otherwise he has no other complaints other than the weakness and fatigue. He denies any chest pain, shortness of breath, blood in the stool, blood in urine, abdominal pain, or vomiting. Of note patient has been seen multiple times this month and last month due to low hemoglobin requiring multiple transfusions. In the past patient has been thoroughly worked up for his anemia with 2 bone biopsies 1 of which had inadequate aspiration on 03/2024 and the other one was on 07/2023 which did not show any myelodysplasia. Patient's folate levels and vitamin B12 levels have also been within normal limits. Patient has as well had colonoscopies and EGD which she stated did not show any source of bleeding. ED course: Initially came in afebrile and normotensive. Initial labs were relevant for acute anemia (Hgb 6), hyperkalemia (5.6), and azotemia (BUN 62 and creatinine 10.1). There was no initial imaging done. PMH: As above Social Hx: Patient denies any smoking, drugs, alcohol Surgical Hx: Tonsillectomy and cyst removal in the past Medications: Patient states he takes carvedilol and multiple medications for his ESRD, and reconciliation pending Review of Systems Review of Systems Narrative Review of Systems: Constitutional: Denies sweats, Denies weight loss/gain, Denies fever, Denies chills Admits weakness. HEENT: Denies hearing loss, Denies ear pain, Denies postnasal drip, Denies double vision, Denies blurry vision. Respiratory: Denies shortness of breath, Denies cough, Denies wheezing. Cardiovascular: Denies chest pain, Denies palpitations, Denies sudden loss of consciousness. GI: Denies blood in stool, Denies constipation, Denies abdominal pain, Denies difficulty swallowing, Denies nausea or vomit. : Denies urinary incontinence, Denies pain while urinating, Denies increased urinary frequency. MSK: Denies joint pain, Denies joint swelling, Denies numbness. Skin: Denies rash, Denies itching, Denies easy bruising. Neuro: Denies headaches, Denies dizziness, Denies seizures. Past Medical History Past Medical History NEUROLOGIC: Positive Neurological Disorders and Peripheral Neuropathy CARDIAC: Positive Cardiac Disorders, Hypertension and Hypotension RESPIRATORY: Positive Sleep Apnea GASTROINTESTINAL: Positive Gastrointestinal Disorders, Gastrointestinal Bleed, Ulcer and Obesity GENITOURINARY: Positive Genitourinary Disorders, Renal Disease and Dialysis ENDOCRINE: Positive Endocrine Disorders HEMATOLOGIC: Positive Blood Disorders and Anemia PSYCHO/SOCIAL: Positive Depression and Anxiety OTHER HISTORY: Positive Chicken Pox Family History FAMILY HISTORY: Positive Family Psychiatric Problems and Family Respiratory Disorders; Negative Family Cardiac Disorders, Family Gastrointestinal Problems, Family Cancer, Family Surgery or Family Anesthesia Reaction Surgical History SURGICAL: Positive Tonsillectomy; Negative Cardiac Surgery, Open Heart Surgery, Coronary Artery Bypass Graft, Valve Replacement, Coronary Stent, Cardiac Catheterization, Pacemaker, Angiogram, Auto Implanted Cardiovert Defib, Carotid Endarterectomy, Endocrine Surgery, Thyroidectomy, Ear Surgery, Tympanostomy Tube, Eye Surgery, Nose Surgery, Oral Surgery, Adenoidectomy, Cochlear Implant, Corneal Transplant, Throat Surgery, Abdominal Surgery, Tracheostomy, Gastric Bypass Surgery, Gastrostomy, Bowel Surgery, Nephrectomy, Transurethral Resection, Joint Replacement, Amputation, Open Reduction Internal Fixation, Arthroscopy, Neurologic Surgery, Brain Shunt or Vasectomy Social History SMOKING STATUS: Never smoker SUBSTANCE USE: does not use ALCOHOL: Never Exam Vital Signs Temp Pulse BP Pulse Ox O2 Del Method 97.8 F 69 128/71 98 Room Air 02/10/25 12:45 02/10/25 12:45 02/10/25 12:45 02/10/25 12:45 02/10/25 12:45 Narrative Exam General: A/O x3, no acute distress Eyes: PERRL, EOMI. Anicteric, vision grossly intact. Ears: No ear pain, no ear discharge, Hearing grossly intact. Nose: No nasal discharge. Mouth/Throat: Moist mucous membranes, poor dentation, no redness, no lesions. Neck: Neck supple, non-tender, no cervical lymphadenopathy. Lungs: Clear MARIA LUISA to auscultation and percussion, No accessory muscle use. Cardio: Normal S1/S2, regular rhythm, no murmurs, no JVD Abdomen: Soft, non-tender, no palpable masses, peristalsis present, no guarding or rebound. Extremities: Symmetrical, no significant deformities, peripheral edema present likely due to venous stasis, non-tender, peripheral pulses presents. Skin: No rashes, no lesions, warm to touch. L LE wrapped in dressing without any discharge Neuro: No focal neurological deficits. motor and sensory intact Psych: Cooperative, appropriate mood and effect. Results: Labs 02/11/25 09:00 02/11/25 05:28 Labs: Short CBC 02/10/25 Range/Units 13:26 WBC 3.4 L (3.8-10.6) Thou/mm3 Hgb 6.0 L* (13.5-16.0) g/dL Hct 17.1 L* (41.0-53.0) % Plt Count 75 L (140-440) Thou/mm3 BMP 02/10/25 13:26 Sodium 135 L Potassium 5.6 H Chloride 97 L Carbon Dioxide 24.5 BUN 62 H Creatinine 10.1 H* D Glucose 76 Calcium 8.3 Liver Function 02/10/25 Range/Units 13:26 Total Bilirubin 0.4 (0.3-1.2) mg/dL AST 11 (0-34) U/L ALT < 7 L (10-49) U/L Alkaline Phosphatase 76 (46-116) U/L Albumin 3.1 L (3.5-5.0) gm/dL Quality Measures Quality Measures VTE prophylaxis Medications Home Medications and Allergies Home Medications ?Medication ?Instructions ?Recorded ?Confirmed ?Type diphenhydramine HCl 25 mg capsule 25 mg PO TID PRN Itching 08/20/22 02/10/25 History (Benadryl) vitamin B comp no.3-folic acid 1 1 tab PO QDAY 08/20/22 02/10/25 History mg-vit C 60 mg-biotin 300 mcg tablet ([facility]) sucroferric oxyhydroxide 500 mg 500 mg PO QID 10/03/22 02/10/25 History chewable tablet (Velphoro) carvedilol 12.5 mg tablet 12.5 mg PO BID 08/04/23 02/10/25 History Held on 02/11/25. Instructions: Resume on 02/17/25. Hold until follow up with primary care physician furosemide 40 mg tablet 40 mg PO QDAY 08/04/23 02/10/25 History levothyroxine 112 mcg tablet 112 mcg PO ACBR 02/10/25 02/10/25 History Allergies Allergy/AdvReac Type Severity Reaction Status Date / Time adhesive tape Allergy Severe Rash Verified 02/10/25 12:15 Visit Medications Acetaminophen (Acetaminophen 325 Mg Tablet) 650 mg PO Q6H PRN PRN Reason: Pain 1-3 and Fever >100.4 Stop: 03/12/25 16:47 Hydrocodone Bitart/Acetaminophen (Hydrocodone/Apap 5/325 Tablet) 1 tab PO Q4HR PRN PRN Reason: PAIN SCALE 4-10(Mod-Sev Stop: 02/15/25 16:47 Epoetin Leonard (Epoetin Leonard Inj 1,000 Unit/0.05 Ml Unit) 10,000 unit SC X1 ONE Stop: 02/10/25 20:01 Ondansetron HCl (Ondansetron Inj 2 Mg/Ml Inj 2 Ml) 4 mg IVP Q6H PRN; Protocol PRN Reason: NAUSEA OR VOMITING Stop: 03/12/25 16:47 Assessment & Plan Plan 59-year-old male with past medical history of ESRD (HD on M/W/F), hypothyroidism, HFpEF (EF 50% 12/2024), chronic left lower extremity wound, and anemia of chronic disease was admitted to the hospital on 02/10/2025 due to acute on chronic anemia and requiring hemodialysis. #Acute on chronic symptomatic anemia #Generalized weakness #Fatigue Patient came in with a hemoglobin of 6 for which she was told to come to the ER from hemodialysis center due to low hemoglobin. Patient says he has been feeling weak and fatigue and this has been going on for quite some time now. Patient has had a thorough workup for his anemia with vitamin B12 levels, folate levels, bone marrow biopsy, EGDs, and colonoscopies with all been unrevealing. Patient has required multiple transfusions throughout the past few weeks. At this time patient's anemia could be most likely due to chronic disease and anemia in the setting of ESRD and chronic left lower extremity wound versus possible GI bleed possibly in the small intestine. At this time we will hold off on further anemia workup as patient has had thorough workup done in the past which has been unrevealing. Plan: 3 units of PRBC ordered for transfusion while on hemodialysis Will transfuse if hemoglobin less than 7 Will continue to monitor #ESRD (HD on M/W/F) #Hyperkalemia Patient did not get his hemodialysis today given that his hemoglobin was very low therefore he was asked to come to the ED. Potassium 5.6 on admission Plan: Expect correction of potassium with hemodialysis Will continue with hemodialysis as scheduled Avoid nephrotoxic agents Renally dose medications #HFpEF (EF 50% 12/2024) Patient's last echo showed EF 50% on 12/2024 Patient does not appear to be in exacerbation at this time as is able to lay flat without difficulties and no crackles auscultated Plan: Will continue to monitor for now #Hx of hypothyroidism Will restart patient's levothyroxine 112mcg #Hx of chronic wound of left lower extremity Patient has a history of chronic left lower extremity wounds for which she is seeing wound care outpatient. Plan: Will continue wound care and patient Disposition: Patient admitted to med surg for blood transfusion in the setting of anemia. Diet: renal GI prophylaxis: not indicated DVT prophylaxis: SCDs, chemical prophylaxis contraindicated in setting of anemia Code: Full Case disclosed with Attending Dr. Stefan Rodriguez PGY1 Attending Provider Attestation/Addendum I attest that I was physically present for the evaluation, physical examination, lab and imaging review of the patient with the residents. I discussed the case with the residents and agree with the findings and plans of care as documented above. Patient is a 59 years old male with past medical history of ESRD on hemodialysis, hypothyroidism, chronic lower extremity wound, anemia of chronic disease who presented to the ED with complaint of weakness fatigue and low hemoglobin. Patient has been having multiple transfusions over the last 2 years. He has already undergone extensive investigation including GI workup, bone marrow biopsy, which has been negative so far. He denies any active bleeding currently. In the ED, vitals were within normal limits. Lab results show hemoglobin of 6.0, WBC 3.4, platelets 75. Lab results show potassium of 5.6, BUN/creatinine 62/10.1. After examination of the patient and review of the clinical data I feel that this patient needs admission to the hospital for further treatment/evaluation of acute on chronic symptomatic anemia, electrolyte imbalances in setting of ESRD and HFpEF. Patient is planned for hemodialysis today with nephrology, we will transfuse 3 units of PRBC during hemodialysis. Farrah Aviles MD
--- NOTE | 2025-02-10 18:13 | PC.NURSE ---
Received hand off report from ED nurse Darleen. Pt transferred from ED to dialysis @ [id number] will come to this unit after dialysis and blood transfusion complete.
--- NOTE | 2025-02-10 18:26 | PD.NEPHCONS ---
History of Present Illness Data of Consult Consult date: 02/10/25 Requesting Physician: Farrah Aviles MD Primary Care Provider: Shad Cotton MD Consult Narrative Reason for consult: ESRD-need for dialysis History of present illness: Mr. Weaver is a 59-year-old male with a known history of ESRD on hemodialysis (HD) thrice weekly (Thursday/Thursday/Thursday), chronic anemia (had bone marrow biopsy, endoscopy/colonoscopy with no etiology known), venous stasis with significant venous ulceration x2 years and is currently on IV antibiotics on dialysis with wound care center help, hypothyroidism, hypertension under my care for the past 11 years. Patient has been getting weekly blood transfusions for his anemia for the last 2 years. Presented with hemoglobin of 6.0 and 3 units of blood transfusion was ordered. No active GI bleed. Nephrology consultation requested for need for dialysis with blood transfusion. Patient currently seen on dialysis. Labs and medications have been reviewed. PMHx: ESRD on HD, hypothyroidism, chronic venous stasis, chronic anemia PSHx: Left upper extremity AV fistula placement MEDS: Pending med rec no need for any surgical intervention. Patient wants to follow-up with wound care center.- ALLERGIES: Adhesive tape FHx: Not significant SH: Denies tobacco, alcohol or drug use cc:: cc: Farrah Aviles MD Review of Systems Review of Systems Narrative Review of Systems: CONSTITUTIONAL: Patient denies any fever, chills. Complaining of fatigue HEENT: Denies any visual disturbances or hearing problems. CARDIOVASCULAR: Patient denies any chest pain, shortness of breath. ++ swelling in the lower extremities. PULMONARY: Patient denies any shortness of breath, cough. GASTROINTESTINAL: Patient denies any abdominal pain, constipation, nausea, vomiting, diarrhea. GENITOURINARY: Patient denies any urinary symptoms of burning or frequency or hematuria, denies any form in the urine. SKIN: Significant wounds on the left leg MUSCULOSKELETAL: Complaining of gait imbalance NEUROLOGICAL: Denies any neurological problems of strokes, seizures or confusion. Denies any memory problems. PSYCHIATRIC: Denies any depression or anxiety. + Anemia LYMPHATICS : No lymphadenopathy Past Medical History Past Medical History NEUROLOGIC: Positive Neurological Disorders and Peripheral Neuropathy; Negative Cerebrovascular Accident, Transient Ischemic Attacks (TIA), Dementia, Alzheimer's Disease, Parkinson's Disease, Brain Tumor, Meningitis, Seizures, Epilepsy, Multiple Sclerosis, Cerebral Palsy, Amyotrophic Lateral Sclerosis (ALS/Carmela Gehrig's), Guillain-[place] Syndrome, Spina Bifida, Paralysis, Fermin's Palsy, Subdural Hematoma, Migraine, Head Trauma, Spinal Cord Injury or Traumatic Brain Injury CARDIAC: Positive Hypertension and Hypotension; Negative Cardiac Disorders, Myocardial Infarction, Cardiac Arrhythmia, Atrial Fibrillation, Angina, Heart Murmur, Coronary Artery Disease, Atherosclerotic Heart Disease, Peripheral Vascular Disease, Hypercholesterolemia, Aneurysm, Congestive Heart Failure, Congenital Heart Disease, Valvular Heart Disease, Rheumatic Fever, Cardiomyopathy, Pericarditis, Cellulitis, Deep Vein Thrombosis or Varicose Veins RESPIRATORY: Positive Sleep Apnea; Negative Respiratory Disorders, Chronic Obstructive Pulmonary Disease (COPD), Asthma, Bronchitis, Emphysema, Pneumonia, Pulmonary Fibrosis, Cystic Fibrosis, Tuberculosis, Pulmonary Embolism or Pulmonary Edema GASTROINTESTINAL: Positive Gastrointestinal Disorders, Gastrointestinal Bleed, Ulcer and Obesity; Negative Hepatitis, Cirrhosis, Pancreatitis, Celiac Disease, Gall Bladder Disease, Esophageal Varices, Kc's Esophagus, Colitis, Ulcerative Colitis, Diverticulitis, Diverticulosis, Colorectal Cancer, Irritable Bowel, Crohn's Disease, Obstructive Bowel, Hiatal Hernia, Hemorrhoids or Gastroesophageal Reflux Disease GENITOURINARY: Positive Genitourinary Disorders, Renal Disease and Dialysis; Negative Kidney Stones, Polycystic Kidney Disease, Neurogenic Bladder, Inguinal Hernia, Prostate Cancer or Benign Prostatic Hyperplasia REPRODUCTIVE: Negative Breast Cancer, Genital Herpes, Gonorrhea, Syphilis or Testicular Cancer MUSCULOSKELETAL: Negative Musculoskeletal Disorders, Muscular Dystrophy, Myasthenia Gravis, Marfan's Syndrome, Bone Cancer, Arthritis, Rheumatoid Arthritis, Osteoporosis, Degenerative Disk Disease, Gout, Scoliosis, Carpal Tunnel Syndrome, Fibromyalgia, Fractures, Degenerative Joint Disease, Osteomyelitis or Poliovirus ENT: Negative History of ENT Problems, Cataracts, Glaucoma, Blind, Retinal Detachment, Macular Degeneration, Ear Infection, Deafness, Head Trauma or Eye Prosthesis ENDOCRINE: Positive Endocrine Disorders and Hypothyroidism; Negative Diabetes Mellitus Type 1, Diabetes Mellitus Type 2, Hypoglycemia, [place]'s Syndrome, Antwon's Disease, Hyperthyroidism, Parathyroid Disease, Pituitary Disease, Systemic Lupus Erythematosus, Syndrome of Inappropriate Antidiuretic Hormone (SIADH), Adrenal Disease or Graves' Disease HEMATOLOGIC: Positive Blood Disorders and Anemia; Negative Leukemia, Hemophilia, Thalassemia, Sickle Cell Disease or Clotting Problems PSYCHO/SOCIAL: Positive Depression and Anxiety; Negative Psychiatric Problems, Schizophrenia, Recreational Drug Use, Bipolar Disorder, Behavior Problems, Self-Mutilation, Attention Deficit Disorder, Attention Deficit Hyperactivity Disorder, Depression, Post Traumatic Stress Disorder or Eating Disorder OTHER HISTORY: Positive Blood Transfusions and Chicken Pox; Negative Hospitalization, Autoimmune Disease, Down Syndrome, Autism, Developmental Delay, Shingles, Falls, Blood Transfusion Reaction, Anesthesia Reactions, Organ Transplant, Chemotherapy, Radiation Therapy, Hyperbaric Therapy, MRSA, VRSA, Vancomycin-Resistant Enterococci, Human Immunodeficiency Virus (HIV), Measles, Mumps, Rubella (Micronesian Measles), Pertussis, Clostridium Difficile, Cancer, Breast Cancer, Cervical Cancer, Colorectal Cancer, Lung Cancer, Ovarian Cancer, Prostate Cancer or Testicular Cancer Family History FAMILY HISTORY: Positive Family Psychiatric Problems and Family Respiratory Disorders; Negative Family Cardiac Disorders, Family Gastrointestinal Problems, Family Cancer, Family Surgery or Family Anesthesia Reaction Surgical History SURGICAL: Positive Vascular Surgery and Tonsillectomy; Negative Cardiac Surgery, Open Heart Surgery, Coronary Artery Bypass Graft, Valve Replacement, Coronary Stent, Cardiac Catheterization, Pacemaker, Angiogram, Auto Implanted Cardiovert Defib, Carotid Endarterectomy, Endocrine Surgery, Thyroidectomy, Ear Surgery, Tympanostomy Tube, Eye Surgery, Nose Surgery, Oral Surgery, Adenoidectomy, Cochlear Implant, Corneal Transplant, Throat Surgery, Abdominal Surgery, Tracheostomy, Gastric Bypass Surgery, Gastrostomy, Bowel Surgery, Nephrectomy, Transurethral Resection, Joint Replacement, of Shoulder Sx, Amputation, Knee Sx, Hip Sx, Open Reduction Internal Fixation, Arthroscopy, of Back Surgery, Neurologic Surgery, Brain Shunt, Vasectomy or Organ Transplant Social History SMOKING STATUS: Never smoker SECOND HAND EXPOSURE: No SUBSTANCE USE: does not use Meds Home Medications and Allergies Home Medications ?Medication ?Instructions ?Recorded ?Confirmed ?Type diphenhydramine HCl 25 mg capsule 25 mg PO TID PRN Itching 08/20/22 02/10/25 History (Benadryl) vitamin B comp no.3-folic acid 1 1 tab PO QDAY 08/20/22 02/10/25 History mg-vit C 60 mg-biotin 300 mcg tablet ([facility] Rx) sucroferric oxyhydroxide 500 mg 500 mg PO QID 10/03/22 02/10/25 History chewable tablet (Velphoro) carvedilol 12.5 mg tablet 12.5 mg PO BID 08/04/23 02/10/25 History Held on 02/11/25. Instructions: Resume on 02/17/25. Hold until follow up with primary care physician furosemide 40 mg tablet 40 mg PO QDAY 08/04/23 02/10/25 History levothyroxine 112 mcg tablet 112 mcg PO ACBR 02/10/25 02/10/25 History Allergies Allergy/AdvReac Type Severity Reaction Status Date / Time adhesive tape Allergy Severe Rash Verified 02/10/25 12:15 Exam Vital Signs Temp Pulse Resp BP Pulse Ox O2 Del Method 36.3 C 65 18 134/72 H 98 Room Air 02/10/25 18:10 02/10/25 18:10 02/10/25 18:10 02/10/25 18:10 02/10/25 12:45 02/10/25 12:45 Narrative Exam GENERAL APPEARANCE: Patient seems to be comfortable, adequately hydrated and nourished. Currently seen on dialysis HEENT: EOMI, PERRLA NECK: Neck supple, no JVD or bruit CARDIOVASCULAR: Heart regular, no murmurs LUNGS/CHEST: Chest clear to auscultation. No rales, rhonchi, wheezing ABDOMEN: Soft, nontender, nondistended. No masses. Normal bowel sounds. EXTREMITIES: Significant edema with stasis dermatitis noted in bilateral extremities. He has AV fistula. SKIN: Necrotic ulceration noted in the left lower extremity - wrapped MUSCULOSKELETAL: In bed PSYCHIATRIC: Normal mood, affect LYMPHATICS: No lymphadenopathy noted NEUROLOGICAL : No neurological deficits Results Labs 02/11/25 09:00 02/11/25 05:28 Labs: Short CBC 02/10/25 Range/Units 13:26 WBC 3.4 L (3.8-10.6) Thou/mm3 Hgb 6.0 L* (13.5-16.0) g/dL Hct 17.1 L* (41.0-53.0) % Plt Count 75 L (140-440) Thou/mm3 BMP 02/10/25 13:26 Sodium 135 L Potassium 5.6 H Chloride 97 L Carbon Dioxide 24.5 BUN 62 H Creatinine 10.1 H* D Glucose 76 Calcium 8.3 Liver Function 02/10/25 Range/Units 13:26 Total Bilirubin 0.4 (0.3-1.2) mg/dL AST 11 (0-34) U/L ALT < 7 L (10-49) U/L Alkaline Phosphatase 76 (46-116) U/L Albumin 3.1 L (3.5-5.0) gm/dL Assessment & Plan Assessment and plan (1) Stasis dermatitis of left lower extremity with venous ulcer due to chronic peripheral venous hypertension: Status: Acute Additional Assessment & Plan Additional Plan: Mr. Weaver is a 59-year-old male with PMHx of ESRD HD MWF, hypothyroidism, chronic left lower extremity ulcer, chronic anemia, recurrent GI bleed and biweekly transfusions, presenting with weakness and was sent from the dialysis unit for anemia/blood transfusion. recently he was admitted for cellulitis of left lower extremity with IV abx ESRD HD MWF Anemia of chronic disease Recurrent blood transfusions History of ESRD. Has recurrent anemia with biweekly blood transfusions--patient under the care of Dr. Azar and Dr. Ervin from [facility] patient currently seen on dialysis. Tolerating dialysis without any problems. Hemodialysis for 3 hours, 2K, ultrafiltration 2-3 L, Epogen 6000, no heparin ordered. Plan of care discussed with the dialysis nurse. Please see dialysis flowsheet for further details. 3 units of packed red blood cells and Epogen ordered with dialysis ? Continue inpatient HD MWF ? Daily labs Left lower extremity cellulitis superimposed on Chronic Left lower extremity ulcer with eschar-no need for surgical intervention per surgeon--gave 1 dose of Vanco Bilateral chronic venous stasis. Chronic anemia, likely secondary to ESRD, in setting of chronic leg ulcers. Chronic Thrombocytopenia, secondary to ESRD. Hypothyroidism. ? Managed by primary team Thank you Farrah for allowing me to participate in the care of Mr. Weaver
--- NOTE | 2025-02-10 19:05 | PC.NURSE ---
Report received, pt currently in dialysis.
[2025-02-10] MEDS: EPOETIN ALFA INJ 1,000 UNIT/0.05 ML UNIT 10000 UNIT SC (20:49)
--- NOTE | 2025-02-10 21:15 | PC.NURSE ---
Pt arrived to room 377 via gurney by cleaning supervisor, pt resting c/o being cold provided with blanket, dressing to left upper arm fistula.
--- NOTE | 2025-02-10 22:00 | PC.NURSE ---
Pt will not allow for pants to be taken off despite being soiled with drainage from left leg, pt only allowed to have pulled down to removed and change dressing to left leg. Pt has venous ulcer to leg. Per pt he goes to wound center but has been a couple of weeks since he has went, states issues with transportation and financial issues. Pt is not compliant with wound treatment states has dressing put on that needs to be kept on but takes off after couple of days and just showers with wound open and dresses with antibiotic cleanser he got from [facility] and gauze pads. Placed s/s care referrals for pt.
[2025-02-10 22:53] LABS: Hematocrit 21.3 % (41.0-53.0)
[2025-02-10 22:56] LABS: Hemoglobin 7.5 g/dL (13.5-16.0)
[2025-02-10] MEDS: VANCOMYCIN/NS 1 GM IVPB 200 ML IV (23:18)
[2025-02-11] VITALS (7 sets, daily range): BP systolic 121–145; BP diastolic 57–92; PULSE 61–80; RESP 18–97; TEMP 36.2–36.6; O2SAT 93–99; BMI 39.7
[2025-02-11] MEDS: DiphenhydrAMINE 25 MG CAPSULE PO ×2 (00:14→08:46)
[2025-02-11] MEDS: LEVOTHYROXINE SODIUM 112 MCG TABLET PO (05:42)
[2025-02-11 06:13] LABS: Basophils % (Auto) 1 % (0-2.5); Eosinophils # (Auto) 0.1 Thou/mm3 (0.0-0.5); Eosinophils % (Auto) 3 % (0-10); Immature Granulocytes % (Auto) 0 % (0-0); Immature Granulocytes Auto 0.01 Thou/mm3 (0.00-0.00); Lymphocytes # (Auto) 0.3 Thou/mm3 (1.0-4.8); Lymphocytes % (Auto) 15 % (10-50); Mean Corpuscular HGB Conc 35.2 g/dl (31.0-37.0); Mean Corpuscular Hemoglobin 31.1 pg (25.0-35.0); Mean Corpuscular Volume 88 fL (80-100); Monocytes # (Auto) 0.2 Thou/mm3 (0.0-0.8); Monocytes % (Auto) 9 % (0-12); Neutrophils # (Auto) 1.7 Thou/mm3 (1.8-7.7); Neutrophils % (Auto) 72 % (37-80); Nucleated Red Blood Cell % 0 /100 WBC (0); RDW Standard Deviation 54.4 fL (35.1-43.9); Red Blood Count 2.25 Miln/mm3 (4.50-5.90)
[2025-02-11 06:19] LABS: White Blood Count 2.3 Thou/mm3 (3.8-10.6)
[2025-02-11 06:20] LABS: Hematocrit 19.9 % (41.0-53.0); Platelet Count 59 Thou/mm3 (140-440)
[2025-02-11 06:37] LABS: Slide Review Platelets confirmed
[2025-02-11 06:46] LABS: Alanine Aminotransferase < 7 U/L (10-49); Albumin, Serum 2.7 gm/dL (3.5-5.0); Albumin/Globulin Ratio 0.7 (1.2-2.2); Alkaline Phosphatase 65 U/L (46-116); Anion Gap 9 (7-16); Aspartate Amino Transferase < 10 U/L (0-34); BUN/Creatinine Ratio 6 Ratio (12-20); Bilirubin,Total 0.5 mg/dL (0.3-1.2); Blood Urea Nitrogen 42 mg/dL (9-23); Carbon Dioxide 29.8 mMol/L (20.0-31.0); Chloride 100 mMol/L (98-107); Creatinine (Component) 7.4 mg/dL (0.6-1.3); Estimated Creatinine Clearance 16.2 mL/min (>60); Glucose 81 mg/dL (74-106); Magnesium 1.6 mg/dL (1.6-2.6); Osmolality,Calculated 287 (275-295); Potassium 4.8 mMol/L (3.4-5.1); Sodium 139 mMol/L (136-145); Total Protein 6.7 gm/dL (5.7-8.2); eGFR 8 See Note
[2025-02-11] MEDS: Magnesium Sulfate 2 GM Ivpb 2 GM/50 ML BAG IV (08:46)
[2025-02-11] MEDS: Furosemide 40 MG TABLET PO (08:46)
[2025-02-11 09:27] LABS: Hematocrit 22.7 % (41.0-53.0)
[2025-02-11 09:57] LABS: Hemoglobin 7.9 g/dL (13.5-16.0)
--- NOTE | 2025-02-11 12:00 | PD.RESDS ---
Planned Discharge Date 02/11/25 DS: Providers Provider Date of admission: 02/10/25 16:48 Primary care physician: Shad Cotton MD Admitting Provider: Farrah Aviles MD Attending Provider on Admission: Farrah Aviles MD Consults: 02/10/25 15:50 Consult to Nephrology Stat Comment: ESRD Consulting Provider: Shad Cotton 02/10/25 17:23 Referral Wound Care Routine Comment: 02/11/25 08:00 Referral Registered Dietitian Routine Comment: [facility] Referral - Transportation Routine Comment: Positive screening for transportation needs. Attending Provider on DC: Farrah Aviles MD Discharging Provider: Farrah Aviles MD DS: Diagnosis Problem List Completed Was Problem List Reviewed/Reconciled?: Yes Hospital Course Hospital Course Hospital course: 59-year-old male with past medical history of ESRD (HD on M/W/F), hypothyroidism, HFpEF (EF 50% 12/2024), chronic left lower extremity wound, and anemia of chronic disease was admitted to the hospital on 02/10/2025 due to acute on chronic anemia and requiring hemodialysis. Came into the ED with complaints of weakness, fatigue, and low hemoglobin. Patient had been seen multiple times this month and last month due to low hemoglobin requiring multiple transfusions. In the past patient has been thoroughly worked up for his anemia with 2 bone biopsies 1 of which had inadequate aspiration on 03/2024 and the other one was on 07/2023 which did not show any myelodysplasia. Patient's folate levels and vitamin B12 levels have also been within normal limits. Patient has as well had colonoscopies and EGD which she stated did not show any source of bleeding. During this hospital stay he got hemodialysis and got 3 units of PRBC transfused and afterwards he was feeling a lot better. On the day of discharge patient hemoglobin was stable and he was stable enough to be discharged back home. Discharge plan: Please follow-up with primary care physician within 1 week upon discharge Please follow-up with your building construction inspector within 1 to 2 weeks after discharge. Please follow-up with wound center within 1 week and continue home wound care as they instruct. Keeping the wound clean and dry is very important to prevent infection and facilitate wound healing. Would recommend to see a GI specialist for possible capsule endoscopy given that previous anemia workup has been negative with bone marrow biopsy being negative and EGD and colonoscopy negative as well. We have held your carvedilol 12.5 mg twice daily with meals until you see your primary care physician. Please continue taking all other home medications as prescribed Please come back to the Emergency Department if symptoms persist or worsen Problem list: #Acute on chronic symptomatic anemia #Generalized weakness #Fatigue #ESRD (HD on M/W/F) #Hyperkalemia, resolved #HFpEF (EF 50% 12/2024) #Hx of hypothyroidism #Hx of chronic wound of left lower extremity Case disclosed with Attending Dr. Stefan Rodriguez PGY1 Status at Discharge Overall status at discharge: patient is progressing back to baseline Time Spent with Patient Time attestation: Total time spent providing and/or coordinating discharge services:30 min Time spent: Less than 30 minutes Exam Vital Signs Temp Pulse Resp BP Pulse Ox O2 Del Method 97.2 F 69 18 121/57 L 93 L Room Air 02/11/25 08:00 02/11/25 08:46 02/11/25 08:00 02/11/25 08:46 02/11/25 08:00 02/11/25 08:00 Narrative Exam General: A/O x3, no acute distress Eyes: PERRL, EOMI. Anicteric, vision grossly intact. Ears: No ear pain, no ear discharge, Hearing grossly intact. Nose: No nasal discharge. Mouth/Throat: Moist mucous membranes, poor dentation, no redness, no lesions. Neck: Neck supple, non-tender, no cervical lymphadenopathy. Lungs: Clear MARIA LUISA to auscultation and percussion, No accessory muscle use. Cardio: Normal S1/S2, regular rhythm, no murmurs, no JVD Abdomen: Soft, non-tender, no palpable masses, peristalsis present, no guarding or rebound. Extremities: Symmetrical, no significant deformities, peripheral edema present likely due to venous stasis, non-tender, peripheral pulses presents. Skin: No rashes, no lesions, warm to touch. L LE wrapped in dressing without any discharge Neuro: No focal neurological deficits. motor and sensory intact Psych: Cooperative, appropriate mood and effect. Discharge Plan Plan Patient Disposition: HOME (Self Care) Care Plan Goals: Please follow-up with primary care physician within 1 week upon discharge Please follow-up with your building construction inspector within 1 to 2 weeks after discharge. Please follow-up with wound center within 1 week and continue home wound care as they instruct. Keeping the wound clean and dry is very important to prevent infection and facilitate wound healing. Would recommend to see a GI specialist for possible capsule endoscopy given that previous anemia workup has been negative with bone marrow biopsy being negative and EGD and colonoscopy negative as well. We have held your carvedilol 12.5 mg twice daily with meals until you see your primary care physician. Please continue taking all other home medications as prescribed Please come back to the Emergency Department if symptoms persist or worsen Prescriptions/Referrals Prescriptions/Med Rec: Continued furosemide 40 mg Tablet 40 mg PO QDAY diphenhydramine HCl [Benadryl] 25 mg Capsule 25 mg PO TID PRN (Reason: Itching) Mere-[facility] Rx 1-60-300 mg-mg-mcg tablet 1 tab PO QDAY Patient Comments: TAKE 1 TABLET BY MOUTH DAILY Velphoro 500 mg tablet,chewable 500 mg PO QID Patient Comments: CHEW AND SWALLOW 1 TABLET BY MOUTH FOUR TIMES DAILY WITH FOOD levothyroxine 112 mcg tablet 112 mcg PO ACBR Held carvedilol 12.5 mg Tablet 12.5 mg PO BID Hold Instructions: Resume on 02/17/25. Hold until follow up with primary care physician Rx Instructions: must administer with a meal/food Referrals: Shad Cotton MD [Primary Care Provider] - Patient/Caregiver Discharge Instructions Discharge Activity: activity as tolerated Other Discharge Activity Instructions:: Please follow-up with primary care physician within 1 week upon discharge Please follow-up with your building construction inspector within 1 to 2 weeks after discharge. Would recommend to see a GI specialist for possible capsule endoscopy given that previous anemia workup has been negative with bone marrow biopsy being negative and EGD and colonoscopy negative as well. We have held your carvedilol 12.5 mg twice daily with meals until you see your primary care physician. Please continue taking all other home medications as prescribed Please come back to the ER if symptoms persist or worsen Education Materials: Anemia and Kidney Disease, Wound Care Dc, Dressing Change Steps Print Language: [place] Stand Alone Forms: Bridget Award Info., Patient Portal Info Letter Discharge Order Discharge Orders: Discharge (Routine); Ordered 02/11/25 Ordered By: Savage Rodriguez Quality Discharge Quality Measures VTE prophylaxis Attestestation Attestation I attest that I was physically present for the evaluation, physical examination, lab and imaging review of the patient with the residents. I discussed the case with the residents and agree with the findings and plans of care as documented above. At bedside today, patient states she is feeling better compared to yesterday. Received hemodialysis yesterday along with 3 units of PRBC. Hemoglobin improved to 7.9 this morning. Vital signs were stable this morning. Patient's anemia appears to be chronic, possibly from anemia of chronic disease, chronic leg wounds and ESRD. Workup for anemia on previous visits including GI workup, bone marrow biopsy have been negative. Patient also received Epogen during hemodialysis. Wound was cleaned and dressing was applied with wound care. Patient also received a dose of vancomycin which she has been getting along with hemodialysis with nephrology. Patient deemed stable for discharge on his home medications. He might need. Take hemoglobin checks with blood transfusions. Explained to the patient in detail about his condition, possible future need for transfusions, explained about need for monitoring of his hemoglobin level and hospital visit if the level is low, patient verbalized understanding and is in agreement with the plan. Farrah Aviles MD
--- NOTE | 2025-02-11 13:30 | ESPR_ITS ---
Documentation for date of: 02/11/25 Subjective Subjective Interval history: Mr. Weaver is a 59-year-old male with a known history of ESRD on hemodialysis (HD) thrice weekly (Thursday/Thursday/Thursday), chronic anemia (had bone marrow biopsy, endoscopy/colonoscopy with no etiology known), venous stasis with significant venous ulceration x2 years and is currently on IV antibiotics on dialysis with wound care center help, hypothyroidism, hypertension under my care for the past 11 years. Patient has been getting weekly blood transfusions for his anemia for the last 2 years. Presented with hemoglobin of 6.0 and 3 units of blood transfusion was ordered. No active GI bleed. Nephrology consultation requested for need for dialysis with blood transfusion. Patient currently seen on dialysis. Labs and medications have been reviewed. PMHx: ESRD on HD, hypothyroidism, chronic venous stasis, chronic anemia PSHx: Left upper extremity AV fistula placement MEDS: Pending med rec no need for any surgical intervention. Patient wants to follow-up with wound care center.- ALLERGIES: Adhesive tape FHx: Not significant SH: Denies tobacco, alcohol or drug use 02/11/2025 patient currently seen in medical floor. Did receive dialysis and 3 units of blood transfusion yesterday. Hemoglobin 7.9. Spoke to primary team- will be discharged today. Patient needs capsule endoscopy as an outpatient. However he stated that he did not have a ride and would not want to go out of town. He has no family support. Review of Systems Review of Systems Narrative Review of Systems: CONSTITUTIONAL: Patient denies any fever, chills. Complaining of fatigue HEENT: Denies any visual disturbances or hearing problems. CARDIOVASCULAR: Patient denies any chest pain, shortness of breath. ++ swelling in the lower extremities. PULMONARY: Patient denies any shortness of breath, cough. GASTROINTESTINAL: Patient denies any abdominal pain, constipation, nausea, vomiting, diarrhea. GENITOURINARY: Patient denies any urinary symptoms of burning or frequency or hematuria, denies any form in the urine. SKIN: Significant wounds on the left leg MUSCULOSKELETAL: Complaining of gait imbalance NEUROLOGICAL: Denies any neurological problems of strokes, seizures or confusion. Denies any memory problems. PSYCHIATRIC: Denies any depression or anxiety. + Anemia LYMPHATICS : No lymphadenopathy Exam Vital Signs Temp Pulse Resp BP Pulse Ox O2 Del Method 36.4 C 61 18 132/92 H 99 Room Air 02/11/25 12:00 02/11/25 12:00 02/11/25 12:00 02/11/25 12:00 02/11/25 12:00 02/11/25 12:00 Narrative Exam GENERAL APPEARANCE: Patient seems to be comfortable, adequately hydrated and nourished. Currently seen in medical floor HEENT: EOMI, PERRLA NECK: Neck supple, no JVD or bruit CARDIOVASCULAR: Heart regular, no murmurs LUNGS/CHEST: Chest clear to auscultation. No rales, rhonchi, wheezing ABDOMEN: Soft, nontender, nondistended. No masses. Normal bowel sounds. EXTREMITIES: Significant edema with stasis dermatitis noted in bilateral extremities. He has AV fistula. SKIN: ulceration noted in the left lower extremity - wrapped MUSCULOSKELETAL: In bed PSYCHIATRIC: Normal mood, affect LYMPHATICS: No lymphadenopathy noted NEUROLOGICAL : No neurological deficits Objective Labs 02/11/25 09:00 02/11/25 05:28 Labs: Laboratory Results - last 24 hr 02/10/25 02/10/25 02/11/25 13:26 22:43 05:28 WBC 3.4 L 2.3 L RBC 1.89 L* 2.25 L Hgb 6.0 L* 7.5 L D 7.0 L Hct 17.1 L* 21.3 L* 19.9 L* MCV 91 88 MCH 31.7 31.1 MCHC 35.1 35.2 RDW Std Deviation 58.4 H 54.4 H Plt Count 75 L 59 L D Neut % (Auto) 79 72 Lymph % (Auto) 10 15 Jessamine % (Auto) 8 9 Eos % (Auto) 2 3 Baso % (Auto) 1 1 Neut # (Auto) 2.7 1.7 L Lymph # (Auto) 0.4 L 0.3 L Jessamine # (Auto) 0.3 0.2 Eos # (Auto) 0.1 0.1 Baso # (Auto) 0.0 0.0 Immature Gran # (Auto) 0.01 H 0.01 H Absolute Nucleated RBC 0.00 0.00 Immature Gran % 0 0 Nucleated RBC % 0 0 Sodium 135 L 139 Potassium 5.6 H 4.8 D Chloride 97 L 100 Carbon Dioxide 24.5 29.8 Anion Gap 14 9 BUN 62 H 42 H Creatinine 10.1 H* D 7.4 H* D Estim Creat Clear Calc 11.9 L 16.2 L eGFR 5 L* 8 L* BUN/Creatinine Ratio 6 L 6 L Glucose 76 81 Calculated Osmolality 286 287 Calcium 8.3 8.0 L Corrected Calcium 9.0 9.0 Magnesium 1.6 Total Bilirubin 0.4 0.5 AST 11 < 10 ALT < 7 L < 7 L Alkaline Phosphatase 76 65 Total Protein 7.7 6.7 Albumin 3.1 L 2.7 L Globulin 4.6 H 4.0 H Albumin/Globulin Ratio 0.7 L 0.7 L Misc Test Result Platelets confirmed Platelets confirmed Blood Type O Positive Antibody Screen NEGATIVE Crossmatch See Detail Blood Bank Wristband ID Yes 02/11/25 09:00 WBC RBC Hgb 7.9 L Hct 22.7 L MCV MCH MCHC RDW Std Deviation Plt Count Neut % (Auto) Lymph % (Auto) Jessamine % (Auto) Eos % (Auto) Baso % (Auto) Neut # (Auto) Lymph # (Auto) Jessamine # (Auto) Eos # (Auto) Baso # (Auto) Immature Gran # (Auto) Absolute Nucleated RBC Immature Gran % Nucleated RBC % Sodium Potassium Chloride Carbon Dioxide Anion Gap BUN Creatinine Estim Creat Clear Calc eGFR BUN/Creatinine Ratio Glucose Calculated Osmolality Calcium Corrected Calcium Magnesium Total Bilirubin AST ALT Alkaline Phosphatase Total Protein Albumin Globulin Albumin/Globulin Ratio Misc Test Result Blood Type Antibody Screen Crossmatch Blood Bank Wristband ID Assessment & Plan Assessment and plan (1) Stasis dermatitis of left lower extremity with venous ulcer due to chronic peripheral venous hypertension: Status: Acute Additional Assessment & Plan Additional Plan: Mr. Weaver is a 59-year-old male with PMHx of ESRD HD MWF, hypothyroidism, chronic left lower extremity ulcer, chronic anemia, recurrent GI bleed and biweekly transfusions, presenting with weakness and was sent from the dialysis unit for anemia/blood transfusion. recently he was admitted for cellulitis of left lower extremity with IV abx ESRD HD MWF Anemia of chronic disease Recurrent blood transfusions History of ESRD. Has recurrent anemia with biweekly blood transfusions--patient under the care of Dr. Azar and Dr. Ervin from [facility] Patient received dialysis, 3 units of blood transfusion, Epogen yesterday. Renal morelos stable for discharge. Left lower extremity cellulitis superimposed on Chronic Left lower extremity ulcer with eschar-no need for surgical intervention per surgeon--gave 1 dose of Vanco Bilateral chronic venous stasis. Chronic anemia, likely secondary to ESRD, in setting of chronic leg ulcers. Chronic Thrombocytopenia, secondary to ESRD. Hypothyroidism. ? Managed by primary team Thank you Farrah for allowing me to participate in the care of Mr. Weaver
--- NOTE | 2025-02-11 16:42 | PC.SS ---
1339 SS spoke with manager intensive care unit informed if [facility] does not pick pt up to request UBER 1630 SS called [facility] no answer; SS met pt at bedside and informed him of transportation; pt was agreeable SS informed medical team of transportation SS spoke with [facility] [phone]; confirmed able to transport pt between 5-6 SS learned pt needed ride home from medical team
--- NOTE | 2025-02-12 16:12 | PC.SS ---
Late entry Sincere Weaver ?is 89 year old male admitted to [facility] . SS conducted bedside contact with the patient to complete initial assessment and to discuss discharge planning.? SW used all precautionary measures to complete initial. Role and reason for the contact was explained to Sincere. Pt is alert and oriented times 4. Patient confirmed demographic information and confirmed address listed on facesheet. Pt lives with alone. Patient identifies Cal Weaver, brother, as his surrogate decision maker. Pt states prior to hospitalization he is able to complete ADL?s independently. Pt has DME walker. Pt does not use Oxygen. Pt is not diabetic and does have need for dialysis. Pt states he has dialysis at [facility] M/W/F at 11:45. Pt mentioned that he is worried his landlord will evict him due to not keeping up on property. Pt is mentioned several times about financial concerns; pt states currently receiving SSI. Pt confirmed history of mental health low level depression, pt has not seen a therapist for a while and knows how to reconnect, pt was provided with community resources. Pts PCP is Shad Cotton. Pharmacy of choice is [facility]. Discharge options discussed and the pt return to home. ?Transportation services will need to be provided upon DC. Advance life directive discussed and pt not receptive stating he has documentation at home. No further intervention required at this time, social worker palliative care would be available to address any further concerns. DC Plan: Home ? Contact: ester Brambilaer, Address: Confirmed on face sheet PCP Shad Cotton
== END 2025-02-11 17:56 | disposition home or self-care (01) | DRG 683 ==
LOC: SERX 13:20 → SERHOLD 16:54 → S3SX 18:10
PROVIDERS: Nurse Practitioner Family; Admitting Provider Student in an Organized Health Care Education/Training Program; Emergency Provider Family Medicine; PCP Internal Medicine; Visit Provider Student in an Organized Health Care Education/Training Program
DX: N18.6 End stage renal disease (principal); I50.32 Chronic diastolic (congestive) heart failure; L03.116 Cellulitis of left lower limb; L97.929 Non-pressure chronic ulcer of unspecified part of left lower leg with unspecified severity; D69.59 Other secondary thrombocytopenia; E87.5 Hyperkalemia; I87.2 Venous insufficiency (chronic) (peripheral); E03.9 Hypothyroidism, unspecified; I87.8 Other specified disorders of veins; D63.1 Anemia in chronic kidney disease; Z99.2 Dependence on renal dialysis; Z79.890 Hormone replacement therapy; Z63.8 Other specified problems related to primary support group; Z79.899 Other long term (current) drug therapy
CPT/HCPCS: 36415; 80053; 83735; 85014; 85018; 85025; 86850; 86900; 86901; 86902; 86921; 86922; 87081; 99285; J3370; J3475; P9016; Q4081; A9270

== ENCOUNTER 2025-02-20 16:26 | Emergency (ER) | payer MEDICARE, MEDICAID, SELFPAY ==
[2025-02-20 16:37] VITALS: BP 104/50; PULSE 65; RESP 20; TEMP 36.4; O2SAT 95
--- NOTE | 2025-02-20 16:41 | PD.EDRME ---
Rapid Medical Screening Exam RME Arrival date/time: 02/20/25 16:26 59-year-old male ESRD on dialysis presents to the emergency department today requesting blood transfusion Chief Complaint: Weakness Time Seen by Provider: 02/20/25 16:33 Vital signs: Vital Signs Temperature 97.5 F 02/20/25 16:37 Pulse Rate 65 02/20/25 16:37 Respiratory Rate 20 02/20/25 16:37 Blood Pressure 104/50 L 02/20/25 16:37 Pulse Oximetry (%) 95 02/20/25 16:37 Oxygen Delivery Method Room Air 02/20/25 16:37
[2025-02-20 17:12] LABS: Basophils % (Auto) 1 % (0-2.5); Eosinophils # (Auto) 0.1 Thou/mm3 (0.0-0.5); Eosinophils % (Auto) 2 % (0-10); Immature Granulocytes % (Auto) 0 % (0-0); Immature Granulocytes Auto 0.01 Thou/mm3 (0.00-0.00); Lymphocytes # (Auto) 0.6 Thou/mm3 (1.0-4.8); Lymphocytes % (Auto) 19 % (10-50); Mean Corpuscular HGB Conc 33.7 g/dl (31.0-37.0); Mean Corpuscular Hemoglobin 30.5 pg (25.0-35.0); Mean Corpuscular Volume 91 fL (80-100); Monocytes # (Auto) 0.2 Thou/mm3 (0.0-0.8); Monocytes % (Auto) 8 % (0-12); Neutrophils # (Auto) 2.1 Thou/mm3 (1.8-7.7); Neutrophils % (Auto) 70 % (37-80); Nucleated Red Blood Cell % 0 /100 WBC (0); RDW Standard Deviation 52.1 fL (35.1-43.9)
[2025-02-20 17:43] LABS: Alanine Aminotransferase < 7 U/L (10-49); Albumin, Serum 3.2 gm/dL (3.5-5.0); Albumin/Globulin Ratio 0.8 (1.2-2.2); Alkaline Phosphatase 68 U/L (46-116); Anion Gap 9 (7-16); Aspartate Amino Transferase 12 U/L (0-34); BUN/Creatinine Ratio 5 Ratio (12-20); Bilirubin,Total 0.5 mg/dL (0.3-1.2); Blood Urea Nitrogen 20 mg/dL (9-23); Calcium 8.1 mg/dL (8.3-10.6); Calcium (Corrected) 8.7 mg/dL (8.5-10.1); Carbon Dioxide 33.9 mMol/L (20.0-31.0); Chloride 94 mMol/L (98-107); Globulin 4.1 gm/dL (2.3-3.5); Glucose 95 mg/dL (74-106); Osmolality,Calculated 276 (275-295); Potassium 3.3 mMol/L (3.4-5.1); Sodium 137 mMol/L (136-145); Total Protein 7.3 gm/dL (5.7-8.2); eGFR 17 See Note
[2025-02-20 17:50] LABS: Hematocrit 18.1 % (41.0-53.0); Hemoglobin 6.1 g/dL (13.5-16.0); Platelet Count 66 Thou/mm3 (140-440)
[2025-02-20 17:51] LABS: Slide Review Platelets confirmed
--- NOTE | 2025-02-20 20:18 | EDNOTE_ITS ---
ED Weakness RME/HPI General Chief complaint: Weakness Stated complaint: FATIGUE, WEAKNESS; HX TRANSFUSION Time Seen by Provider: 02/20/25 16:33 Arrival date/time: 02/20/25 16:26 RME / HPI RME / HPI Narrative: 02/20/25 16:26 59-year-old male ESRD on dialysis presents to the emergency department today requesting blood transfusion Dr. Fuchs?s Main ED Evaluation: 59yo male with a history of ESRD (HD on M/W/F), hypothyroidism, chronic left lower extremity wound, and anemia presents to the ED for a chief complaint of fatigue. Patient states he's been feeling more fatigued and short of breath when ambulating than usual, reporting he's had similar symptoms before when he needed a blood transfusion, so he came in for evaluation. Patient denies any hemoptysis, hematochezia, hematemesis, fever, chills or any other associated symptoms. Related Data Home Medications ?Medication ?Instructions ?Recorded ?Confirmed diphenhydramine HCl 25 mg capsule 25 mg PO TID PRN Itc adrian 08/20/22 02/10/25 (Benadryl) vitamin B comp no.3-folic acid 1 1 tab PO QDAY 2 02/10/25 mg-vit C 60 mg-biotin 300 mcg tablet ([facility]re[facility] Rx) sucroferric oxyhydroxide 500 mg 500 mg PO QID 10/03/22 02/10/25 chewable tablet (Velphoro) carvedilol 12.5 mg tablet 12.5 mg PO BID 08/04/2301/20 Held on 02/11/25. Instructions: Resume on 02/17/25. Hold until follow up with primary care physician furosemide 40 mg tablet 40 mg PO QDAY 08/04/2302/10 levothyroxine 112 mcg tablet 112 mcg PO ACBR 02/10/25 02/10/25 Allergies Allergy/AdvReac Type Severity Reaction Status Date / Time adhesive tape Allergy Severe Rash Verified 02/20/25 16:29 Review of Systems Review of Systems Systems Reviewed: All systems reviewed, normal except as documented Past Medical History Past Medical History NEUROLOGIC: Positive Neurological Disorders and Peripheral Neuropathy; Negative Cerebrovascular Accident, Transient Ischemic Attacks (TIA), Dementia, Alzheimer's Disease, Parkinson's Disease, Brain Tumor, Meningitis, Seizures, Epilepsy, Multiple Sclerosis, Cerebral Palsy, Amyotrophic Lateral Sclerosis (ALS/Carmela Gehrig's), Guillain-Aurelia Syndrome, Spina Bifida, Paralysis, Fermin's Palsy, Subdural Hematoma, Migraine, Head Trauma, Spinal Cord Injury or Traumatic Brain Injury CARDIAC: Positive Hypertension and Hypotension; Negative Cardiac Disorders, Myocardial Infarction, Cardiac Arrhythmia, Atrial Fibrillation, Angina, Heart Murmur, Coronary Artery Disease, Atherosclerotic Heart Disease, Peripheral Vascular Disease, Hypercholesterolemia, Aneurysm, Congestive Heart Failure, Congenital Heart Disease, Valvular Heart Disease, Rheumatic Fever, Cardiomyopathy, Pericarditis, Cellulitis, Deep Vein Thrombosis or Varicose Veins RESPIRATORY: Positive Sleep Apnea; Negative Chronic Obstructive Pulmonary Disease (COPD), Asthma, Bronchitis, Emphysema, Pneumonia, Pulmonary Fibrosis, Cystic Fibrosis, Tuberculosis, Pulmonary Embolism or Pulmonary Edema GASTROINTESTINAL: Positive Gastrointestinal Disorders, Gastrointestinal Bleed, Ulcer and Obesity; Negative Hepatitis, Cirrhosis, Pancreatitis, Celiac Disease, Gall Bladder Disease, Esophageal Varices, Kc's Esophagus, Colitis, Ulcerative Colitis, Diverticulitis, Diverticulosis, Colorectal Cancer, Irritable Bowel, Crohn's Disease, Obstructive Bowel, Hiatal Hernia, Hemorrhoids or Gastroesophageal Reflux Disease GENITOURINARY: Positive Genitourinary Disorders, Renal Disease and Dialysis; Negative Kidney Stones, Polycystic Kidney Disease, Neurogenic Bladder, Inguinal Hernia, Prostate Cancer or Benign Prostatic Hyperplasia REPRODUCTIVE: Negative Breast Cancer, Genital Herpes, Gonorrhea, Syphilis or Testicular Cancer MUSCULOSKELETAL: Negative Musculoskeletal Disorders, Muscular Dystrophy, Myasthenia Gravis, Marfan's Syndrome, Bone Cancer, Arthritis, Rheumatoid Arthritis, Osteoporosis, Degenerative Disk Disease, Gout, Scoliosis, Carpal Tunnel Syndrome, Fibromyalgia, Fractures, Degenerative Joint Disease, Osteomyelitis or Poliovirus ENT: Negative Cataracts, Glaucoma, Blind, Retinal Detachment, Macular Degeneration, Ear Infection, Deafness, Head Trauma or Eye Prosthesis ENDOCRINE: Positive Endocrine Disorders and Hypothyroidism; Negative Diabetes Mellitus Type 1, Diabetes Mellitus Type 2, Hypoglycemia, Broken Arrow's Syndrome, Antwon's Disease, Hyperthyroidism, Parathyroid Disease, Pituitary Disease, Systemic Lupus Erythematosus, Syndrome of Inappropriate Antidiuretic Hormone (SIADH), Adrenal Disease or Graves' Disease HEMATOLOGIC: Positive Blood Disorders and Anemia; Negative Leukemia, Hemophilia, Thalassemia, Sickle Cell Disease or Clotting Problems PSYCHO/SOCIAL: Positive Depression and Anxiety; Negative Psychiatric Problems, Schizophrenia, Recreational Drug Use, Bipolar Disorder, Behavior Problems, Self-Mutilation, Attention Deficit Disorder, Attention Deficit Hyperactivity Disorder, Depression, Post Traumatic Stress Disorder or Eating Disorder OTHER HISTORY: Positive Blood Transfusions and Chicken Pox; Negative Hospitalization, Autoimmune Disease, Down Syndrome, Autism, Developmental Delay, Shingles, Falls, Blood Transfusion Reaction, Anesthesia Reactions, Organ Transplant, Chemotherapy, Radiation Therapy, Hyperbaric Therapy, MRSA, VRSA, Vancomycin-Resistant Enterococci, Human Immunodeficiency Virus (HIV), Measles, Mumps, Rubella (Frisian Measles), Pertussis, Clostridium Difficile, Cancer, Breast Cancer, Cervical Cancer, Colorectal Cancer, Lung Cancer, Ovarian Cancer, Prostate Cancer or Testicular Cancer Family History FAMILY HISTORY: Positive Family Psychiatric Problems and Family Respiratory Disorders; Negative Family Cardiac Disorders, Family Gastrointestinal Problems, Family Cancer, Family Surgery or Family Anesthesia Reaction Surgical History SURGICAL: Positive Vascular Surgery and Tonsillectomy; Negative Cardiac Surgery, Open Heart Surgery, Coronary Artery Bypass Graft, Valve Replacement, Coronary Stent, Cardiac Catheterization, Pacemaker, Angiogram, Auto Implanted Cardiovert Defib, Carotid Endarterectomy, Endocrine Surgery, Thyroidectomy, Ear Surgery, Tympanostomy Tube, Eye Surgery, Nose Surgery, Oral Surgery, Adenoidectomy, Cochlear Implant, Corneal Transplant, Throat Surgery, Abdominal Surgery, Tracheostomy, Gastric Bypass Surgery, Gastrostomy, Bowel Surgery, Nephrectomy, Transurethral Resection, Joint Replacement, Amputation, Open Reduction Internal Fixation, Arthroscopy, Neurologic Surgery, Brain Shunt, Vasectomy or Organ Transplant Social History SMOKING STATUS: Never smoker SECOND HAND EXPOSURE: No SUBSTANCE USE: does not use ED Exam Narrative Physical exam: GENERAL APPEARANCE: alert and oriented x 4, well-developed, well-nourished, no acute distress VITALS: All vitals were reviewed and the pulse ox is 95% on room air, which is normal according to my interpretation. HEENT: Normocephalic, atraumatic; pupils equal, round, reactive to light; EOMI; mucous membranes pink, moist; oropharynx clear NECK: Supple LUNGS: CTABL; no wheezes, no rales, no rhonchi HEART: Regular rate, regular rhythm; normal S1, S2; no murmurs ABDOMEN: non distended; normal BS; soft, no tenderness, no guarding, no rebound; no masses, no organomegaly, no hernia BACK: no CVA tenderness EXTREMITIES: atraumatic; no edema NEUROLOGIC: awake; alert and oriented x4; cranial nerves II-XII grossly intact; no focal sensory or motor deficits PSYCHIATRIC: appropriate mood and affect SKIN: warm, dry, normal color; no rashes Course Course Course Narrative: Observation began at 2034 and was necessary in order to determine if the patient will receive blood transfusion without any complications. Upon reevaluation, observation revealed that the patient should be discharged home. Observation ended at 219. Total time of observation ~6 hours Quality Measures none Orders Category Date Time Status Insert IV NOW Care 02/20/25 17:53 Completed Transfuse,blood/blood products NOW Care 02/20/25 17:53 Completed CBC Stat Lab 02/20/25 16:45 Completed CMP [Comprehensive Metabolic Panel] Stat Lab 02/20/25 16:45 Completed Type and Screen Stat Lab 02/20/25 16:45 Completed prbc [Red Blood Cells] Stat Lab 02/20/25 16:45 Completed Vital Signs Vital signs: Vital Signs Temperature 97.5 F 02/20/25 16:37 Pulse Rate 65 02/20/25 16:37 Respiratory Rate 20 02/20/25 16:37 Blood Pressure 104/50 L 02/20/25 16:37 Pulse Oximetry (%) 95 02/20/25 16:37 Oxygen Delivery Method Room Air 02/20/25 16:37 Weakness MDM Narrative MDM Narrative:: Scribe Attestation: 02/20/25 - Lelo Jones am scribing for and in the presence of Dr. Fuchs. Patient remained clinically stable while under my care. Patient is stable to be discharged home. Patient data External records reviewed:: [facility] previous records (Per chart review, patient was admitted here on 02/06/25 for anemia.) Clinical information provided by:: patient Social determinants that could affect healthcare access:: none Patient has the following chronic illnesses:: ESRD (HD on M/W/F), hypothyroidism, chronic left lower extremity wound, and anemia How is presenting disease/condition affected by chronic disease/condition?: uneffected by Evaluation data The following diagnostics were reviewed and interpreted by me:: lab results Lab and/or radiology exams considered but not ordered:: none Interpretation Summary: WBC 3.0, HnH low at 6.1/12.1, Platelets 66, Potassium 3.3, Creatinine 4.0 (which is chronic). Medications / Prescriptions Medications or Prescriptions considered but not ordered:: none Medication administrations:: 2U pRBCs Consultations Consultation(s) initiated? (list below): No Diagnosis Weakness Differential Diagnosis: anemia, dehydration and other (electrolyte abnormality) Most likely diagnosis given after review of the tests above:: see clinical impression below Admission Indicated Admission indicated?: not indicated Admission Request Was there a request for admission?: No Disposition Plan Disposition Plan: Discharge Discharge Attestation Discharge Attestation: The patient and all family members were given an opportunity to ask questions and understood the discharge instructions. Discharge instructions specifically effects, indications for sooner follow up or return to the emergency department, and the expected course of current diagnosis. Patient condition: Stable Discharge Plan Plan Patient Disposition: HOME (Self Care) Discharge Disposition comment: Stable for discharge home Patient condition on transfer: Stable Prescriptions/Referrals Prescriptions/Med Rec: No Action furosemide 40 mg Tablet 40 mg PO QDAY carvedilol 12.5 mg Tablet 12.5 mg PO BID Rx Instructions: must administer with a meal/food diphenhydramine HCl [Benadryl] 25 mg Capsule 25 mg PO TID PRN (Reason: Itching) Mere-Martín Rx 1-60-300 mg-mg-mcg tablet 1 tab PO QDAY Patient Comments: TAKE 1 TABLET BY MOUTH DAILY Velphoro 500 mg tablet,chewable 500 mg PO QID Patient Comments: CHEW AND SWALLOW 1 TABLET BY MOUTH FOUR TIMES DAILY WITH FOOD levothyroxine 112 mcg tablet 112 mcg PO ACBR Referrals: Shad Cotton MD [Physician] - In 1 week Problem List Clinical Impression: Anemia, ESRD on hemodialysis Patient/Caregiver Discharge Instructions Discharge Activity: activity as tolerated Education Materials: Anemia and Kidney Disease Additional Instructions: Please return to the emergency department for any worsening or any further medical problems we will help you. Otherwise you should follow-up with your primary care doctor within the next several days. Be sure to go to dialysis in the morning. Print Language: Divehi Stand Alone Forms: Bridget Award Info., Patient Portal Info Letter
[2025-02-20 20:48] VITALS: BP 117/50; PULSE 63; RESP 20; TEMP 36.6; O2SAT 95
[2025-02-20 20:56] VITALS: BP 125/55; PULSE 83; RESP 14; TEMP 36.4; O2SAT 96
[2025-02-20 21:12] VITALS: BP 106/53; PULSE 63; RESP 16; TEMP 36.4; O2SAT 95
[2025-02-20 21:27] VITALS: BP 108/59; PULSE 57; RESP 16; TEMP 36.6; O2SAT 95
[2025-02-20 23:39] VITALS: BP 128/60; PULSE 62; RESP 16; TEMP 36.9; O2SAT 96
[2025-02-21 00:02] VITALS: BP 121/66; PULSE 68; RESP 17; TEMP 36.9; O2SAT 98
[2025-02-21 00:18] VITALS: BP 121/65; PULSE 64; RESP 21; TEMP 36.5; O2SAT 100
[2025-02-21 00:33] VITALS: BP 118/67; PULSE 64; RESP 19; TEMP 36.5; O2SAT 100
[2025-02-21 02:40] VITALS: BP 128/62; PULSE 66; RESP 20; TEMP 36.5; O2SAT 98
== END 2025-02-21 02:46 | disposition home or self-care (01) ==
PROVIDERS: Nurse Practitioner Primary Care; Emergency Provider Emergency Medicine
DX: N18.6 End stage renal disease (principal); D63.1 Anemia in chronic kidney disease; E03.9 Hypothyroidism, unspecified; Z99.2 Dependence on renal dialysis
CPT/HCPCS: 36415; 36430; 80053; 85025; 86850; 86870; 86900; 86901; 86902; 86921; 86922; 99285; P9016

== ENCOUNTER 2025-02-23 18:05 | Emergency (ER) | payer MEDICARE, MEDICAID, SELFPAY ==
[2025-02-23 18:07] VITALS: BMI 41.0
[2025-02-23 19:34] VITALS: BP 144/77; PULSE 81; RESP 17; TEMP 36.7; O2SAT 98
--- NOTE | 2025-02-23 20:17 | PD.EDRECHK ---
ED Recheck Abnl Lab Rx-RME/HPI General Chief Complaint: General Adult/Misc Complain Stated Complaint: NEEDS BLOOD TRANSFUSION, DIALYSIS PATIENT Time Seen by Provider: 02/23/25 18:58 Arrival date/time: 02/23/25 18:05 59M with history of ESRD, hypothyroidism, and chronic anemia presents to ED needing blood transfusion due to low hemoglobin outpatient today. Patient had 2 units transfused here 3 days ago. Patient denies bloody emesis and red/blood in stool. Limitations: no limitations Related Data Home Medications ?Medication ?Instructions ?Recorded ?Confirmed diphenhydramine HCl 25 mg capsule 25 mg PO TID PRN Itching 08/20/22 02/10/25 (Benadryl) vitamin B comp no.3-folic acid 1 1 tab PO QDAY 08/20/22 02/10/25 mg-vit C 60 mg-biotin 300 mcg tablet ([facility]) sucroferric oxyhydroxide 500 mg 500 mg PO QID 10/03/22 02/10/25 chewable tablet (Velphoro) carvedilol 12.5 mg tablet 12.5 mg PO BID 08/04/23 02/10/25 Held on 02/11/25. Instructions: Resume on 02/17/25. Hold until follow up with primary care physician furosemide 40 mg tablet 40 mg PO QDAY 08/04/23 02/10/25 levothyroxine 112 mcg tablet 112 mcg PO ACBR 02/10/25 02/10/25 Allergies Allergy/AdvReac Type Severity Reaction Status Date / Time adhesive tape Allergy Severe Rash Verified 02/23/25 18:09 Review of Systems Review of Systems Systems Reviewed: All systems reviewed, normal except as documented Constitutional Constitutional: Reports system reviewed and no additional complaints, except as documented, Denies fever(s) and Denies headache(s) ENT Ears, Nose, Mouth, and Throat: Denies disequilibrium and Denies headache(s) Cardiovascular Cardiovascular: Reports system reviewed and no additional complaints, except as documented, Denies chest pain and Denies dyspnea Respiratory Respiratory: Reports system reviewed and no additional complaints, except as documented, Denies cough and Denies dyspnea Gastrointestinal Gastrointestinal: Reports system reviewed and no additional complaints, except as documented, Denies abdominal pain, Denies nausea and Denies vomiting Neurologic Neurologic: Reports system reviewed and no additional complaints, except as documented, Denies confusion, Denies disequilibrium and Denies headache(s) Psychiatric Psychiatric: Denies confusion Past Medical History Past Medical History NEUROLOGIC: Positive Neurological Disorders and Peripheral Neuropathy; Negative Cerebrovascular Accident, Transient Ischemic Attacks (TIA), Dementia, Alzheimer's Disease, Parkinson's Disease, Brain Tumor, Meningitis, Seizures, Epilepsy, Multiple Sclerosis, Cerebral Palsy, Amyotrophic Lateral Sclerosis (ALS/Carmela Gehrig's), Guillain-Manville Syndrome, Spina Bifida, Paralysis, Fermin's Palsy, Subdural Hematoma, Migraine, Head Trauma, Spinal Cord Injury or Traumatic Brain Injury CARDIAC: Positive Hypertension and Hypotension; Negative Cardiac Disorders, Myocardial Infarction, Cardiac Arrhythmia, Atrial Fibrillation, Angina, Heart Murmur, Coronary Artery Disease, Atherosclerotic Heart Disease, Peripheral Vascular Disease, Hypercholesterolemia, Aneurysm, Congestive Heart Failure, Congenital Heart Disease, Valvular Heart Disease, Rheumatic Fever, Cardiomyopathy, Pericarditis, Cellulitis, Deep Vein Thrombosis or Varicose Veins RESPIRATORY: Positive Sleep Apnea; Negative Chronic Obstructive Pulmonary Disease (COPD), Asthma, Bronchitis, Emphysema, Pneumonia, Pulmonary Fibrosis, Cystic Fibrosis, Tuberculosis, Pulmonary Embolism or Pulmonary Edema GASTROINTESTINAL: Positive Gastrointestinal Disorders, Gastrointestinal Bleed, Ulcer and Obesity; Negative Hepatitis, Cirrhosis, Pancreatitis, Celiac Disease, Gall Bladder Disease, Esophageal Varices, Kc's Esophagus, Colitis, Ulcerative Colitis, Diverticulitis, Diverticulosis, Colorectal Cancer, Irritable Bowel, Crohn's Disease, Obstructive Bowel, Hiatal Hernia, Hemorrhoids or Gastroesophageal Reflux Disease GENITOURINARY: Positive Genitourinary Disorders, Renal Disease and Dialysis; Negative Kidney Stones, Polycystic Kidney Disease, Neurogenic Bladder, Inguinal Hernia, Prostate Cancer or Benign Prostatic Hyperplasia REPRODUCTIVE: Negative Breast Cancer, Genital Herpes, Gonorrhea, Syphilis or Testicular Cancer MUSCULOSKELETAL: Negative Musculoskeletal Disorders, Muscular Dystrophy, Myasthenia Gravis, Marfan's Syndrome, Bone Cancer, Arthritis, Rheumatoid Arthritis, Osteoporosis, Degenerative Disk Disease, Gout, Scoliosis, Carpal Tunnel Syndrome, Fibromyalgia, Fractures, Degenerative Joint Disease, Osteomyelitis or Poliovirus ENT: Negative Cataracts, Glaucoma, Blind, Retinal Detachment, Macular Degeneration, Ear Infection, Deafness, Head Trauma or Eye Prosthesis ENDOCRINE: Positive Endocrine Disorders and Hypothyroidism; Negative Diabetes Mellitus Type 1, Diabetes Mellitus Type 2, Hypoglycemia, [place]'s Syndrome, Hancock's Disease, Hyperthyroidism, Parathyroid Disease, Pituitary Disease, Systemic Lupus Erythematosus, Syndrome of Inappropriate Antidiuretic Hormone (SIADH), Adrenal Disease or Graves' Disease HEMATOLOGIC: Positive Blood Disorders and Anemia; Negative Leukemia, Hemophilia, Thalassemia, Sickle Cell Disease or Clotting Problems PSYCHO/SOCIAL: Positive Depression and Anxiety; Negative Psychiatric Problems, Schizophrenia, Recreational Drug Use, Bipolar Disorder, Behavior Problems, Self-Mutilation, Attention Deficit Disorder, Attention Deficit Hyperactivity Disorder, Depression, Post Traumatic Stress Disorder or Eating Disorder OTHER HISTORY: Positive Blood Transfusions and Chicken Pox; Negative Hospitalization, Autoimmune Disease, Down Syndrome, Autism, Developmental Delay, Shingles, Falls, Blood Transfusion Reaction, Anesthesia Reactions, Organ Transplant, Chemotherapy, Radiation Therapy, Hyperbaric Therapy, MRSA, VRSA, Vancomycin-Resistant Enterococci, Human Immunodeficiency Virus (HIV), Measles, Mumps, Rubella (Vietnamese Measles), Pertussis, Clostridium Difficile, Cancer, Breast Cancer, Cervical Cancer, Colorectal Cancer, Lung Cancer, Ovarian Cancer, Prostate Cancer or Testicular Cancer Family History FAMILY HISTORY: Positive Family Psychiatric Problems and Family Respiratory Disorders; Negative Family Cardiac Disorders, Family Gastrointestinal Problems, Family Cancer, Family Surgery or Family Anesthesia Reaction Surgical History SURGICAL: Positive Vascular Surgery and Tonsillectomy; Negative Cardiac Surgery, Open Heart Surgery, Coronary Artery Bypass Graft, Valve Replacement, Coronary Stent, Cardiac Catheterization, Pacemaker, Angiogram, Auto Implanted Cardiovert Defib, Carotid Endarterectomy, Endocrine Surgery, Thyroidectomy, Ear Surgery, Tympanostomy Tube, Eye Surgery, Nose Surgery, Oral Surgery, Adenoidectomy, Cochlear Implant, Corneal Transplant, Throat Surgery, Abdominal Surgery, Tracheostomy, Gastric Bypass Surgery, Gastrostomy, Bowel Surgery, Nephrectomy, Transurethral Resection, Joint Replacement, Amputation, Open Reduction Internal Fixation, Arthroscopy, Neurologic Surgery, Brain Shunt, Vasectomy or Organ Transplant Social History SMOKING STATUS: Never smoker SECOND HAND EXPOSURE: No SUBSTANCE USE: does not use ED Exam General Limitations: Present no limitations General appearance: Present alert and in no apparent distress Head Head exam: Present atraumatic Eye Eye exam: Present normal appearance, PERRL and EOMI ENT ENT exam: Present normal exam, normal oropharynx and mucous membranes moist Neck Neck exam: Present normal inspection, full ROM and trachea midline Chest Chest inspection: Present normal inspection and symmetric chest wall rise Respiratory Respiratory exam: Present normal lung sounds bilaterally Cardiovascular Cardiovascular exam: Present regular rate, normal rhythm and normal heart sounds Abdominal Exam Abdominal exam: Present soft and normal bowel sounds Extremities Exam Extremities exam: Present normal inspection and full ROM Back Exam Back exam: Present normal inspection and full ROM Neurological Exam Neurological exam: Present alert, oriented X3 and CN II-XII intact Psychiatric Psychiatric exam: Present normal affect and normal mood Skin Skin exam: Present warm, dry, intact and normal color Course Quality Measures none Orders Category Date Time Status Insert IV NOW Care 02/23/25 20:37 Active CBC Stat Lab 02/23/25 19:59 Completed CMP [Comprehensive Metabolic Panel] Stat Lab 02/23/25 19:59 Completed INR [Prothrombin Time with INR] Stat Lab 02/23/25 19:59 Completed PTT [Partial Thromboplastin Time] Stat Lab 02/23/25 19:59 Completed Path Review Blood Smear Stat Lab 02/23/25 19:59 Completed Type and Screen Stat Lab 02/23/25 19:59 Completed prbc [Red Blood Cells] Stat Lab 02/23/25 19:59 Completed Vital Signs Vital signs: Vital Signs Temperature 98.0 F 02/23/25 19:34 Pulse Rate 81 02/23/25 19:34 Respiratory Rate 17 02/23/25 19:34 Blood Pressure 144/77 H 02/23/25 19:34 Pulse Oximetry (%) 98 02/23/25 19:34 Oxygen Delivery Method Room Air 02/23/25 19:34 O2 at 98% on RA and WNLs Recheck / Abnormal Lab / Rx MDM Narrative MDM Narrative:: 59M with history of ESRD, hypothyroidism, and chronic anemia presents to ED needing blood transfusion due to low hemoglobin outpatient today. Patient had 2 units transfused here 3 days ago. Patient denies bloody emesis and red/blood in stool. Physical exam reveals male in no acute distress. Normal WOB. Patient is afebrile, calm, and alert. HgB 6.9. CMP unremarkable. Spoke to Dr. Cotton, who recommends 2 units and follow-up outpatient. 2 units given w/o complication. Patient data External records reviewed:: [facility] previous records Clinical information provided by:: patient Social determinants that could affect healthcare access:: none Patient has the following chronic illnesses:: ESRD, hypothyroidism, and chronic anemia How is presenting disease/condition affected by chronic disease/condition?: caused by Evaluation data The following diagnostics were reviewed and interpreted by me:: lab results Lab and/or radiology exams considered but not ordered:: ordered Interpretation Summary: above Medications / Prescriptions Medications or Prescriptions considered but not ordered:: blood products Medication administrations:: above Consultations Consultation(s) initiated? (list below): No Diagnosis Recheck Differential Diagnosis: encounter for medication refill, encounter for wound recheck, encounter for recheck of burn, encounter for removal of sutures, warfarin-induced coagulopathy and other (anemia) Most likely diagnosis given after review of the tests above:: anemia Admission Indicated Admission indicated?: not indicated Admission Request Was there a request for admission?: No Disposition Plan Disposition Plan: Discharge Discharge Attestation Discharge Attestation: The patient and all family members were given an opportunity to ask questions and understood the discharge instructions. Discharge instructions specifically effects, indications for sooner follow up or return to the emergency department, and the expected course of current diagnosis. Patient condition: Stable Discharge Plan Plan Patient Disposition: HOME (Self Care) Discharge Disposition comment: Stable Prescriptions/Referrals Prescriptions/Med Rec: No Action furosemide 40 mg Tablet 40 mg PO QDAY carvedilol 12.5 mg Tablet 12.5 mg PO BID Rx Instructions: must administer with a meal/food diphenhydramine HCl [Benadryl] 25 mg Capsule 25 mg PO TID PRN (Reason: Itching) [facility] 1-60-300 mg-mg-mcg tablet 1 tab PO QDAY Patient Comments: TAKE 1 TABLET BY MOUTH DAILY Velphoro 500 mg tablet,chewable 500 mg PO QID Patient Comments: CHEW AND SWALLOW 1 TABLET BY MOUTH FOUR TIMES DAILY WITH FOOD levothyroxine 112 mcg tablet 112 mcg PO ACBR Referrals: No Primary/Family,Physician [Primary Care Provider] - In 1 week Problem List Clinical Impression: Anemia Patient/Caregiver Discharge Instructions Education Materials: Anemia Additional Instructions: Please follow-up with PCP within 24-48 hours and return immediately if symptoms worsen. Print Language: Setswana Stand Alone Forms: Patient Portal Info Letter ALEKSANDR/VINCENT Supervising Physician ALEKSANDR/VINCENT Supervising Physician: Dr. Kilgore
[2025-02-23 20:22] LABS: Basophils % (Auto) 1 % (0-2.5); Eosinophils # (Auto) 0.1 Thou/mm3 (0.0-0.5); Eosinophils % (Auto) 4 % (0-10); Immature Granulocytes % (Auto) 0 % (0-0); Immature Granulocytes Auto 0.01 Thou/mm3 (0.00-0.00); Lymphocytes # (Auto) 0.6 Thou/mm3 (1.0-4.8); Lymphocytes % (Auto) 22 % (10-50); Mean Corpuscular Hemoglobin 29.6 pg (25.0-35.0); Mean Corpuscular Volume 85 fL (80-100); Monocytes # (Auto) 0.4 Thou/mm3 (0.0-0.8); Monocytes % (Auto) 13 % (0-12); Neutrophils # (Auto) 1.6 Thou/mm3 (1.8-7.7); Neutrophils % (Auto) 59 % (37-80); Nucleated Red Blood Cell % 0 /100 WBC (0); RDW Standard Deviation 49.5 fL (35.1-43.9); Red Blood Count 2.33 Miln/mm3 (4.50-5.90)
[2025-02-23 20:29] LABS: INR 1.2 (0.9-1.3); Partial Thromboplastin Time 37.3 Seconds (22.0-36.0)
[2025-02-23 20:34] LABS: Hematocrit 19.7 % (41.0-53.0); Hemoglobin 6.9 g/dL (13.5-16.0); Platelet Count 67 Thou/mm3 (140-440); White Blood Count 2.8 Thou/mm3 (3.8-10.6)
--- NOTE | 2025-02-23 20:35 | PC.NURSE ---
Lab called to report critical lab results. HGB 6.9 and HCt 19.7. Provider aware.
[2025-02-23 20:43] LABS: Alanine Aminotransferase < 7 U/L (10-49); Albumin, Serum 3.3 gm/dL (3.5-5.0); Albumin/Globulin Ratio 0.8 (1.2-2.2); Alkaline Phosphatase 105 U/L (46-116); Anion Gap 13 (7-16); Aspartate Amino Transferase 13 U/L (0-34); BUN/Creatinine Ratio 4 Ratio (12-20); Bilirubin,Total 0.6 mg/dL (0.3-1.2); Blood Urea Nitrogen 21 mg/dL (9-23); Calcium 8.1 mg/dL (8.3-10.6); Calcium (Corrected) 8.7 mg/dL (8.5-10.1); Carbon Dioxide 28.7 mMol/L (20.0-31.0); Chloride 95 mMol/L (98-107); Creatinine (Component) 5.2 mg/dL (0.6-1.3); Estimated Creatinine Clearance 23.5 mL/min (>60); Globulin 4.1 gm/dL (2.3-3.5); Glucose 78 mg/dL (74-106); Osmolality,Calculated 275 (275-295); Potassium 3.9 mMol/L (3.4-5.1); Sodium 137 mMol/L (136-145); Total Protein 7.4 gm/dL (5.7-8.2); eGFR 12 See Note
[2025-02-23 22:52] LABS: Slide Review Platelets confirmed
[2025-02-23 23:50] LABS: Path Review Blood Smear Sent to Pathologist
[2025-02-24] VITALS (10 sets, daily range): BP systolic 104–125; BP diastolic 49–66; PULSE 65–82; RESP 17–18; TEMP 36.4–36.8; O2SAT 99–100
== END 2025-02-24 06:45 | disposition home or self-care (01) ==
PROVIDERS: Physician Assistant; Emergency Provider Emergency Medicine
DX: I12.0 Hypertensive chronic kidney disease with stage 5 chronic kidney disease or end stage renal disease (principal); N18.6 End stage renal disease; D63.1 Anemia in chronic kidney disease; Z99.2 Dependence on renal dialysis
CPT/HCPCS: 36415; 36430; 80053; 85025; 85610; 85730; 86850; 86900; 86901; 86902; 86921; 86922; 99285; P9016

== ENCOUNTER 2025-02-28 17:23 | Emergency (ER) | payer MEDICARE, MEDICAID, SELFPAY ==
[2025-02-28] VITALS (12 sets, daily range): BP systolic 93–116; BP diastolic 57–75; PULSE 67–77; RESP 14–99; TEMP 36.4–37.2; O2SAT 97–100; BMI 40.4
--- NOTE | 2025-02-28 17:51 | XR_ITS ---
Examination: AP chest single view TECHNIQUE: Portable sitting AP chest single view Date and time: February 28, 2025, 1835 hours Comparison January 04, 2025 INDICATIONS: Cough and shortness of breath beginning 2 days ago. FINDINGS: Mild heart failure. [id number] enlargement left ventricle Prominent vascular congestion including central vascular engorgement Early edema at the lung bases IMPRESSION: Mild heart failure
[2025-02-28] MEDS: ALBUTEROL RT 2.5 MG/3 ML NEBU INH (18:42)
[2025-02-28 18:54] LABS: Lactate (Lactic Acid) 2.6 mMol/L (0.4-2.0)
[2025-02-28 18:58] LABS: Basophils % (Auto) 0 % (0-2.5); Eosinophils % (Auto) 2 % (0-10); Immature Granulocytes % (Auto) 0 % (0-0); Immature Granulocytes Auto 0.01 Thou/mm3 (0.00-0.00); Lymphocytes # (Auto) 0.5 Thou/mm3 (1.0-4.8); Lymphocytes % (Auto) 17 % (10-50); Mean Corpuscular HGB Conc 35.4 g/dl (31.0-37.0); Mean Corpuscular Hemoglobin 29.2 pg (25.0-35.0); Mean Corpuscular Volume 83 fL (80-100); Monocytes # (Auto) 0.4 Thou/mm3 (0.0-0.8); Monocytes % (Auto) 15 % (0-12); Neutrophils # (Auto) 1.8 Thou/mm3 (1.8-7.7); Neutrophils % (Auto) 66 % (37-80); Nucleated Red Blood Cell % 0 /100 WBC (0); RDW Standard Deviation 47.8 fL (35.1-43.9); Red Blood Count 2.19 Miln/mm3 (4.50-5.90)
[2025-02-28 19:05] LABS: Base Excess 5 (-3-3); HCO3 26 mEq/L (20-26); Inspired Oxygen, FIO2 21 %; O2 Saturation 97 % (91-98); PCO2 23 mmHg (32.0-48.0); PO2 69 mmHg (83-108)
--- NOTE | 2025-02-28 19:10 | PC.NURSE ---
Warp Doffer assumes care of patient at this time, pt A/O x 3 with no c/o pain or acute distress, bed in low position and locked with side rails up x 1 per patient request
[2025-02-28 19:15] LABS: Allen Test Performed/OK; Puncture Site Right Radial
[2025-02-28 19:17] LABS: pH, Arterial 7.65 (7.35-7.45)
[2025-02-28 19:26] LABS: Alanine Aminotransferase < 7 U/L (10-49); Albumin/Globulin Ratio 0.8 (1.2-2.2); Alkaline Phosphatase 79 U/L (46-116); Anion Gap 12 (7-16); BUN/Creatinine Ratio 6 Ratio (12-20); Bilirubin,Total 0.6 mg/dL (0.3-1.2); Blood Urea Nitrogen 47 mg/dL (9-23); Calcium 8.4 mg/dL (8.3-10.6); Calcium (Corrected) 9.2 mg/dL (8.5-10.1); Carbon Dioxide 25.7 mMol/L (20.0-31.0); Chloride 94 mMol/L (98-107); Creatinine (Component) 8.1 mg/dL (0.6-1.3); Globulin 3.6 gm/dL (2.3-3.5); Glucose 93 mg/dL (74-106); INR 1.3 (0.9-1.3); Osmolality,Calculated 276 (275-295); Partial Thromboplastin Time 36.7 Seconds (22.0-36.0); Prothrombin Time 14.2 Seconds (9.0-12.2); Sodium 132 mMol/L (136-145); Total Protein 6.6 gm/dL (5.7-8.2); Troponin I 0.022 ng/mL (0.0-0.045); eGFR 7 See Note
[2025-02-28 19:28] LABS: Hemoglobin 6.4 g/dL (13.5-16.0); White Blood Count 2.8 Thou/mm3 (3.8-10.6)
[2025-02-28 19:29] LABS: Hematocrit 18.1 % (41.0-53.0); Platelet Count 50 Thou/mm3 (140-440)
--- NOTE | 2025-02-28 21:00 | PC.NURSE ---
Pt continues to rest in bed with no c/o pain or acute distress, pt awaiting to have blood transfusion, consent signed by patient
[2025-02-28 21:03] LABS: Path Review Blood Smear Sent to Pathologist; Slide Review Platelets confirmed
--- NOTE | 2025-02-28 21:32 | EDNOTE_ITS ---
ED SOB =RME/HPI General Chief Complaint: Shortness of Breath/Dyspnea Stated Complaint: SOB Time Seen by Provider: 02/28/25 18:31 Arrival date/time: 02/28/25 17:23 RME / HPI RME / HPI Narrative: Dr. Stevens?[facility] Main ED Evaluation: 59yo male with a history of ESRD (HD on M/W/F), hypothyroidism, chronic left lower extremity wound, and anemia presents to the ED for a chief complaint of shortness of breath. Patient states he started feeling generally weak 3 days ago, reporting he had food poisoning. Patient states his weakness persisted, reporting he felt short of breath today, so he came in for evaluation. Patient denies any hematemesis, hematochezia, hemoptysis or any other associated symptoms. Related Data Home Medications ?Medication ?Instructions ?Recorded ?Confirmed diphenhydramine HCl 25 mg capsule 25 mg PO TID PRN Itc adrian 08/20/22 02/10/25 (Benadryl) vitamin B comp no.3-folic acid 1 1 tab PO QDAY 2 02/10/25 mg-vit C 60 mg-biotin 300 mcg tablet ([facility]) sucroferric oxyhydroxide 500 mg 500 mg PO QID 10/03/22 02/10/25 chewable tablet (Velphoro) carvedilol 12.5 mg tablet 12.5 mg PO BID 08/04/2301/20 Held on 02/11/25. Instructions: Resume on 02/17/25. Hold until follow up with primary care physician furosemide 40 mg tablet 40 mg PO QDAY 08/04/2302/10 levothyroxine 112 mcg tablet 112 mcg PO ACBR 02/10/25 02/10/25 Allergies Allergy/AdvReac Type Severity Reaction Status Date / Time adhesive tape Allergy Severe Rash Verified 02/28/25 17:44 Review of Systems Review of Systems Systems Reviewed: All systems reviewed, normal except as documented Past Medical History Past Medical History NEUROLOGIC: Positive Neurological Disorders and Peripheral Neuropathy; Negative Cerebrovascular Accident, Transient Ischemic Attacks (TIA), Dementia, Alzheimer's Disease, Parkinson's Disease, Brain Tumor, Meningitis, Seizures, Epilepsy, Multiple Sclerosis, Cerebral Palsy, Amyotrophic Lateral Sclerosis (ALS/Carmela Gehrig's), Guillain-[place] Syndrome, Spina Bifida, Paralysis, Fermin's Palsy, Subdural Hematoma, Migraine, Head Trauma, Spinal Cord Injury or Traumatic Brain Injury CARDIAC: Positive Hypertension and Hypotension; Negative Cardiac Disorders, Myocardial Infarction, Cardiac Arrhythmia, Atrial Fibrillation, Angina, Heart Murmur, Coronary Artery Disease, Atherosclerotic Heart Disease, Peripheral Vascular Disease, Hypercholesterolemia, Aneurysm, Congestive Heart Failure, Congenital Heart Disease, Valvular Heart Disease, Rheumatic Fever, Cardiomyopathy, Pericarditis, Cellulitis, Deep Vein Thrombosis or Varicose Veins RESPIRATORY: Positive Sleep Apnea; Negative Chronic Obstructive Pulmonary Disease (COPD), Asthma, Bronchitis, Emphysema, Pneumonia, Pulmonary Fibrosis, Cystic Fibrosis, Tuberculosis, Pulmonary Embolism or Pulmonary Edema GASTROINTESTINAL: Positive Gastrointestinal Disorders, Gastrointestinal Bleed, Ulcer and Obesity; Negative Hepatitis, Cirrhosis, Pancreatitis, Celiac Disease, Gall Bladder Disease, Esophageal Varices, Kc's Esophagus, Colitis, Ulcerative Colitis, Diverticulitis, Diverticulosis, Colorectal Cancer, Irritable Bowel, Crohn's Disease, Obstructive Bowel, Hiatal Hernia, Hemorrhoids or Gastroesophageal Reflux Disease GENITOURINARY: Positive Genitourinary Disorders, Renal Disease and Dialysis; Negative Kidney Stones, Polycystic Kidney Disease, Neurogenic Bladder, Inguinal Hernia, Prostate Cancer or Benign Prostatic Hyperplasia REPRODUCTIVE: Negative Breast Cancer, Genital Herpes, Gonorrhea, Syphilis or Testicular Cancer MUSCULOSKELETAL: Negative Musculoskeletal Disorders, Muscular Dystrophy, Myasthenia Gravis, Marfan's Syndrome, Bone Cancer, Arthritis, Rheumatoid Arthritis, Osteoporosis, Degenerative Disk Disease, Gout, Scoliosis, Carpal Tunnel Syndrome, Fibromyalgia, Fractures, Degenerative Joint Disease, Osteomyelitis or Poliovirus ENT: Negative Cataracts, Glaucoma, Blind, Retinal Detachment, Macular Degeneration, Ear Infection, Deafness, Head Trauma or Eye Prosthesis ENDOCRINE: Positive Endocrine Disorders and Hypothyroidism; Negative Diabetes Mellitus Type 1, Diabetes Mellitus Type 2, Hypoglycemia, Óscar's Syndrome, Valley's Disease, Hyperthyroidism, Parathyroid Disease, Pituitary Disease, Systemic Lupus Erythematosus, Syndrome of Inappropriate Antidiuretic Hormone (SIADH), Adrenal Disease or Graves' Disease HEMATOLOGIC: Positive Blood Disorders and Anemia; Negative Leukemia, Hemophilia, Thalassemia, Sickle Cell Disease or Clotting Problems PSYCHO/SOCIAL: Positive Depression and Anxiety; Negative Psychiatric Problems, Schizophrenia, Recreational Drug Use, Bipolar Disorder, Behavior Problems, Self-Mutilation, Attention Deficit Disorder, Attention Deficit Hyperactivity Disorder, Depression, Post Traumatic Stress Disorder or Eating Disorder OTHER HISTORY: Positive Blood Transfusions and Chicken Pox; Negative Hospitalization, Autoimmune Disease, Down Syndrome, Autism, Developmental Delay, Shingles, Falls, Blood Transfusion Reaction, Anesthesia Reactions, Organ Transplant, Chemotherapy, Radiation Therapy, Hyperbaric Therapy, MRSA, VRSA, Vancomycin-Resistant Enterococci, Human Immunodeficiency Virus (HIV), Measles, Mumps, Rubella (Serbian Measles), Pertussis, Clostridium Difficile, Cancer, Breast Cancer, Cervical Cancer, Colorectal Cancer, Lung Cancer, Ovarian Cancer, Prostate Cancer or Testicular Cancer Family History FAMILY HISTORY: Positive Family Psychiatric Problems and Family Respiratory Disorders; Negative Family Cardiac Disorders, Family Gastrointestinal Problems, Family Cancer, Family Surgery or Family Anesthesia Reaction Surgical History SURGICAL: Positive Vascular Surgery and Tonsillectomy; Negative Cardiac Surgery, Open Heart Surgery, Coronary Artery Bypass Graft, Valve Replacement, Coronary Stent, Cardiac Catheterization, Pacemaker, Angiogram, Auto Implanted Cardiovert Defib, Carotid Endarterectomy, Endocrine Surgery, Thyroidectomy, Ear Surgery, Tympanostomy Tube, Eye Surgery, Nose Surgery, Oral Surgery, Adenoidectomy, Cochlear Implant, Corneal Transplant, Throat Surgery, Abdominal Surgery, Tracheostomy, Gastric Bypass Surgery, Gastrostomy, Bowel Surgery, Nephrectomy, Transurethral Resection, Joint Replacement, Amputation, Open Reduction Internal Fixation, Arthroscopy, Neurologic Surgery, Brain Shunt, Vasectomy or Organ Transplant Social History SMOKING STATUS: Never smoker SECOND HAND EXPOSURE: No SUBSTANCE USE: does not use ED Exam Narrative Physical exam: GENERAL APPEARANCE: alert and oriented x 4, well-developed, well-nourished, no acute distress VITALS: All vitals were reviewed and the pulse ox is 98% on room air, which is normal according to my interpretation. HEENT: Normocephalic, atraumatic; pupils equal, round, reactive to light; EOMI; mucous membranes pink, moist; oropharynx clear NECK: Supple LUNGS: CTABL; no wheezes, no rales, no rhonchi HEART: Regular rate, regular rhythm; normal S1, S2; no murmurs ABDOMEN: non distended; normal BS; soft, no tenderness, no guarding, no rebound; no masses, no organomegaly, no hernia BACK: no CVA tenderness EXTREMITIES: atraumatic; no edema NEUROLOGIC: awake; alert and oriented x4; cranial nerves II-XII grossly intact; no focal sensory or motor deficits PSYCHIATRIC: appropriate mood and affect SKIN: warm, dry, normal color; no rashes Course Course Course Narrative: CXR is ordered for determining the etiology of shortness of breath. Quality Measures none Orders Category Date Time Status Bedside COVID-19 Antigen Test NOW Care 02/28/25 17:51 Active Bedside Influenza A&B Antigen Test NOW Care 02/28/25 17:52 Completed Licensed Mental Health Professional NOW Care 02/28/25 17:51 Active Continuous Pulse Oximetry NOW Care 02/28/25 17:51 Completed EKG (ED ONLY) *Do not use* NOW Care 02/28/25 17:51 Completed Insert IV NOW Care 02/28/25 17:51 Active Transfuse,blood/blood products NOW Care 02/28/25 19:29 Active EKG (ED Only) Stat Exams 02/28/25 17:51 Ordered XR chest 1V portable Stat Exams 02/28/25 17:51 Completed ABG [Arterial Blood Gas] Stat Lab 02/28/25 19:00 Completed Blood Culture (Lab) Stat Lab 02/28/25 18:30 Received CBC Stat Lab 02/28/25 18:30 Completed Comprehensive Metabolic Panel Stat Lab 02/28/25 18:30 Completed Lactic Acid [Lactate (Lactic Acid)] Stat Lab 02/28/25 18:30 Completed Lactic Acid, 3 HR Stat Lab 02/28/25 22:08 Completed Partial Thromboplastin Time Stat Lab 02/28/25 18:30 Completed Path Review Blood Smear Stat Lab 02/28/25 18:30 Completed Prothrombin Time with INR Stat Lab 02/28/25 18:30 Completed Red Blood Cells Stat Lab 02/28/25 18:30 Results Troponin I Stat Lab 02/28/25 18:30 Completed Type and Screen Stat Lab 02/28/25 18:30 Results ALBUTEROL RT 3ml [Proventil Rt 3ml] Med 02/28/25 17:51 Discontinued 2.5 mg INH X1 ONE Oxygen Delivery NOW RT 02/28/25 17:51 Active Vital Signs Vital signs: Vital Signs Temperature 98.9 F 02/28/25 17:29 Pulse Rate 75 02/28/25 17:29 Respiratory Rate 18 02/28/25 17:29 Blood Pressure 96/63 02/28/25 17:29 Pulse Oximetry (%) 99 02/28/25 17:29 Oxygen Delivery Method Nasal Cannula 02/28/25 17:29 Oxygen Flow Rate 4 02/28/25 17:29 Shortness of Breath / Dyspnea Patient data External records reviewed:: [facility] previous records (Per chart review, patient was seen here on 02/23/25 for anemia.) Clinical information provided by:: patient Social determinants that could affect healthcare access:: none Patient has the following chronic illnesses:: ESRD (HD on M/W/F), hypothyroidism, chronic left lower extremity wound, and anemia How is presenting disease/condition affected by chronic disease/condition?: caused by Evaluation data The following diagnostics were reviewed and interpreted by me:: lab results and radiology exam(s) Lab and/or radiology exams considered but not ordered:: none Interpretation Summary: WBC 2.8, HnH 6.4/18.1, Platelets 50, ABG shows pH 7.65, pCO2 23, pO2 69; Sodium 132, Creatinine 8.1 (which is chronic), Lactic Acid normal, according to my interpretation. -------- [facility] Report Signed Patient: SINCERE WARNER. Record#: [id number] Birthdate: 1965 Age/Sex: 59 / M Location: [facility] Attending Dr: Ordering Physician: Apollo Aden MD Date of Service: 02/28/25 Procedure(s): XR chest 1V portable Accession Number(s): [id number] cc: Apollo Aden MD; Sincere Calderón MD; Shad Cotton MD~ Examination: AP chest single view TECHNIQUE: Portable sitting AP chest single view Date and time: February 28, 2025, 1835 hours Comparison January 04, 2025 INDICATIONS: Cough and shortness of breath beginning 2 days ago. FINDINGS: Mild heart failure. [id number] enlargement left ventricle Prominent vascular congestion including central vascular engorgement Early edema at the lung bases IMPRESSION: Mild heart failure Dictated By: Sincere Calderón MD Signed By: <Electronically signed by Sincere Calderón MD in OV> 02/28/25 1902 Medications / Prescriptions Medications or Prescriptions considered but not ordered:: none Medication administrations:: Medication Administration History Discontinued Medications Albuterol (Albuterol Rt 2.5 Mg/3 Ml Nebu) 2.5 mg INH X1 ONE Stop: 02/28/25 17:52 Last Admin: 02/28/25 18:42 Dose: 2.5 mg Documented By: NE see above, 3U pRBCs Consultations Consultation(s) initiated? (list below): No Diagnosis Shortness of Breath Differential Diagnosis: other (anemia, CHF, sepsis) Most likely diagnosis given after review of the tests above:: see clinical impression below Admission Indicated Admission indicated?: not indicated Admission Request Was there a request for admission?: No Disposition Plan Disposition Plan: Discharge Discharge Attestation Discharge Attestation: The patient and all family members were given an opportunity to ask questions and understood the discharge instructions. Discharge instructions specifically effects, indications for sooner follow up or return to the emergency department, and the expected course of current diagnosis. Patient condition: Stable Discharge Plan Plan Patient Disposition: HOME (Self Care) Prescriptions/Referrals Prescriptions/Med Rec: No Action furosemide 40 mg Tablet 40 mg PO QDAY carvedilol 12.5 mg Tablet 12.5 mg PO BID Rx Instructions: must administer with a meal/food diphenhydramine HCl [Benadryl] 25 mg Capsule 25 mg PO TID PRN (Reason: Itching) [facility]re[facility] Rx 1-60-300 mg-mg-mcg tablet 1 tab PO QDAY Patient Comments: TAKE 1 TABLET BY MOUTH DAILY Velphoro 500 mg tablet,chewable 500 mg PO QID Patient Comments: CHEW AND SWALLOW 1 TABLET BY MOUTH FOUR TIMES DAILY WITH FOOD levothyroxine 112 mcg tablet 112 mcg PO ACBR Referrals: Shad Cotton MD [Primary Care Provider] - In 1 week Problem List Clinical Impression: Symptomatic anemia, Blood transfusion during current hospitalization Patient/Caregiver Discharge Instructions Education Materials: ED Anemia Type Not Specified Print Language: Ukrainian Stand Alone Forms: Bridget Award Info., Patient Portal Info Letter
[2025-02-28 21:52] LABS: Reflex Lactate? Y
[2025-02-28 22:16] LABS: Lactic Acid, 3 HR 1.5 mMol/L (0.4-2.0)
--- NOTE | 2025-02-28 23:00 | PC.NURSE ---
Pt remains A/O x 3 with no c/o pain or acute distress, pt tolerating 1st unit of blood transfusion with no s/s of reaction noted or reported
[2025-03-01] VITALS (12 sets, daily range): BP systolic 102–138; BP diastolic 41–72; PULSE 61–77; RESP 14–19; TEMP 36.4–36.9; O2SAT 94–100
--- NOTE | 2025-03-01 01:00 | PC.NURSE ---
pt continues to tolerate blood transfusion with no s/s of reaction noted
[2025-03-01 10:36] LABS: Basophils % (Auto) 1 % (0-2.5); Eosinophils # (Auto) 0.1 Thou/mm3 (0.0-0.5); Eosinophils % (Auto) 3 % (0-10); Hematocrit 24.7 % (41.0-53.0); Immature Granulocytes % (Auto) 0 % (0-0); Immature Granulocytes Auto 0.01 Thou/mm3 (0.00-0.00); Lymphocytes # (Auto) 0.5 Thou/mm3 (1.0-4.8); Lymphocytes % (Auto) 14 % (10-50); Mean Corpuscular HGB Conc 36.4 g/dl (31.0-37.0); Mean Corpuscular Hemoglobin 30.8 pg (25.0-35.0); Mean Corpuscular Volume 85 fL (80-100); Monocytes # (Auto) 0.4 Thou/mm3 (0.0-0.8); Monocytes % (Auto) 10 % (0-12); Neutrophils # (Auto) 2.9 Thou/mm3 (1.8-7.7); Neutrophils % (Auto) 73 % (37-80); Nucleated Red Blood Cell % 0 /100 WBC (0); RDW Standard Deviation 47.9 fL (35.1-43.9); Red Blood Count 2.92 Miln/mm3 (4.50-5.90); White Blood Count 3.9 Thou/mm3 (3.8-10.6)
[2025-03-01 10:46] LABS: Platelet Count 54 Thou/mm3 (140-440)
[2025-03-01 12:09] LABS: Slide Review Platelets confirmed
== END 2025-03-01 11:05 | disposition home or self-care (01) ==
PROVIDERS: Emergency Medicine; Family Medicine; Emergency Provider Emergency Medicine; PCP Internal Medicine
DX: I13.2 Hypertensive heart and chronic kidney disease with heart failure and with stage 5 chronic kidney disease, or end stage renal disease (principal); D63.1 Anemia in chronic kidney disease; N18.6 End stage renal disease; I50.9 Heart failure, unspecified; Z99.2 Dependence on renal dialysis
CPT/HCPCS: 36415; 36430; 36600; 71045; 80053; 82803; 83605; 84484; 85025; 85610; 85730; 86850; 86900; 86901; 86902; 86921; 86922; 87040; 87400; 87811; 93005; 94640; 99285; P9016

== ENCOUNTER 2025-03-12 18:10 | Emergency (ER) | payer MEDICARE, MEDICAID, SELFPAY ==
[2025-03-12] VITALS (10 sets, daily range): BP systolic 105–129; BP diastolic 48–66; PULSE 65–81; RESP 15–18; TEMP 36.4–37; O2SAT 95–100; BMI 35.9
[2025-03-12 19:05] LABS: Basophils % (Auto) 1 % (0-2.5); Eosinophils # (Auto) 0.1 Thou/mm3 (0.0-0.5); Eosinophils % (Auto) 2 % (0-10); Immature Granulocytes % (Auto) 1 % (0-0); Immature Granulocytes Auto 0.04 Thou/mm3 (0.00-0.00); Lymphocytes # (Auto) 0.7 Thou/mm3 (1.0-4.8); Lymphocytes % (Auto) 12 % (10-50); Mean Corpuscular HGB Conc 35.8 g/dl (31.0-37.0); Mean Corpuscular Hemoglobin 29.8 pg (25.0-35.0); Mean Corpuscular Volume 83 fL (80-100); Monocytes # (Auto) 0.4 Thou/mm3 (0.0-0.8); Monocytes % (Auto) 7 % (0-12); Neutrophils # (Auto) 4.7 Thou/mm3 (1.8-7.7); Neutrophils % (Auto) 78 % (37-80); Nucleated Red Blood Cell % 0 /100 WBC (0); RDW Standard Deviation 45.8 fL (35.1-43.9); Red Blood Count 2.08 Miln/mm3 (4.50-5.90)
[2025-03-12 19:09] LABS: Hematocrit 17.3 % (41.0-53.0); Hemoglobin 6.2 g/dL (13.5-16.0); Platelet Count 50 Thou/mm3 (140-440)
--- NOTE | 2025-03-12 19:11 | EKG_ITS ---
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: : 1965 Requested By: Lakshmi Gross Order Number: [id number] Reading MD: Lakshmi Gross Measurements Intervals [place] Rate: 63 P: 61 CT: 308 QRS: 14 QRSD: 117 T: 85 QT: 464 QTc: 477 Interpretive Statements SINUS RHYTHM WITH FIRST DEGREE AV BLOCK WITH FREQUENT SUPRAVENTRICULAR PREMATURE COMPLEXES POSSIBLE LATERAL MYOCARDIAL INFARCTION , OF INDETERMINATE AGE [30 ms Q WAVE IN I/aVL/V5/V6] Compared to ECG 01/04/2025 08:30:22 First degree AV block now present Myocardial infarct finding now present Intraventricular conduction delay no longer present T-wave abnormality no longer present Possible ischemia no longer present /store/S0/[id number]/ecg/[id number].pdf
[2025-03-12 19:20] LABS: INR 1.2 (0.9-1.3); Partial Thromboplastin Time 37.2 Seconds (22.0-36.0); Prothrombin Time 12.7 Seconds (9.0-12.2)
[2025-03-12 19:31] LABS: Alanine Aminotransferase < 7 U/L (10-49); Albumin, Serum 3.4 gm/dL (3.5-5.0); Albumin/Globulin Ratio 0.9 (1.2-2.2); Alkaline Phosphatase 88 U/L (46-116); Anion Gap 15 (7-16); Aspartate Amino Transferase 12 U/L (0-34); BUN/Creatinine Ratio 7 Ratio (12-20); Bilirubin,Total 0.4 mg/dL (0.3-1.2); Blood Urea Nitrogen 71 mg/dL (9-23); Calcium 9.1 mg/dL (8.3-10.6); Calcium (Corrected) 9.6 mg/dL (8.5-10.1); Carbon Dioxide 23.1 mMol/L (20.0-31.0); Chloride 91 mMol/L (98-107); Estimated Creatinine Clearance 10.8 mL/min (>60); Globulin 3.7 gm/dL (2.3-3.5); Glucose 90 mg/dL (74-106); Osmolality,Calculated 279 (275-295); Potassium 4.6 mMol/L (3.4-5.1); Sodium 129 mMol/L (136-145); Total Protein 7.1 gm/dL (5.7-8.2); eGFR 5 See Note
[2025-03-12 19:33] LABS: Creatinine (Component) 10.6 mg/dL (0.6-1.3)
[2025-03-12] MEDS: DiphenhydrAMINE 25 MG CAPSULE PO (19:49)
[2025-03-12] MEDS: ACETAMINOPHEN 325 MG TABLET 650 MG PO (19:49)
[2025-03-12 21:01] LABS: Slide Review Platelets confirmed
[2025-03-13] VITALS: BP 127/61; PULSE 68; RESP 15; TEMP 36.6; O2SAT 100
[2025-03-13 01:45] VITALS: BP 131/52; PULSE 65; RESP 15; TEMP 36.6; O2SAT 100
--- NOTE | 2025-03-13 02:08 | PC.NURSE ---
per sushant ok to cancel cbc post trans
--- NOTE | 2025-03-13 02:19 | EDNOTE_ITS ---
ED General RME/HPI General Chief complaint: General Adult/Misc Complain Stated complaint: NEEDS BLOOD TRANSFUSION Time Seen by Provider: 03/12/25 18:21 Arrival date/time: 03/12/25 18:10 RME / HPI RME / HPI narrative: 59-year-old male presents to the ED with a complaint of needing a blood transfusion. He has a past medical history of end-stage renal disease on hemodialysis and needs frequent blood transfusions. He is feeling fatigue and tiredness as well as excessive sleepiness. Related Data Home Medications ?Medication ?Instructions ?Recorded ?Confirmed diphenhydramine HCl 25 mg capsule 25 mg PO TID PRN Itc adrian 08/20/22 02/10/25 (Benadryl) vitamin B comp no.3-folic acid 1 1 tab PO QDAY 2 02/10/25 mg-vit C 60 mg-biotin 300 mcg tablet ([facility]) sucroferric oxyhydroxide 500 mg 500 mg PO QID 10/03/22 02/10/25 chewable tablet (Velphoro) carvedilol 12.5 mg tablet 12.5 mg PO BID 08/04/2301/20 Held on 02/11/25. Instructions: Resume on 02/17/25. Hold until follow up with primary care physician furosemide 40 mg tablet 40 mg PO QDAY 08/04/2302/10 levothyroxine 112 mcg tablet 112 mcg PO ACBR 02/10/25 02/10/25 Allergies Allergy/AdvReac Type Severity Reaction Status Date / Time adhesive tape Allergy Severe Rash Verified 03/12/25 18:13 Review of Systems Review of Systems Systems Reviewed: All systems reviewed, normal except as documented Past Medical History Past Medical History NEUROLOGIC: Positive Neurological Disorders and Peripheral Neuropathy; Negative Cerebrovascular Accident, Transient Ischemic Attacks (TIA), Dementia, Alzheimer's Disease, Parkinson's Disease, Brain Tumor, Meningitis, Seizures, Epilepsy, Multiple Sclerosis, Cerebral Palsy, Amyotrophic Lateral Sclerosis (ALS/Carmela Gehrig's), Guillain-[place] Syndrome, Spina Bifida, Paralysis, Fermin's Palsy, Subdural Hematoma, Migraine, Head Trauma, Spinal Cord Injury or Traumatic Brain Injury CARDIAC: Positive Hypertension and Hypotension; Negative Cardiac Disorders, Myocardial Infarction, Cardiac Arrhythmia, Atrial Fibrillation, Angina, Heart Murmur, Coronary Artery Disease, Atherosclerotic Heart Disease, Peripheral Vascular Disease, Hypercholesterolemia, Aneurysm, Congestive Heart Failure, Congenital Heart Disease, Valvular Heart Disease, Rheumatic Fever, Cardiomyopathy, Pericarditis, Cellulitis, Deep Vein Thrombosis or Varicose Veins RESPIRATORY: Positive Sleep Apnea; Negative Chronic Obstructive Pulmonary Disease (COPD), Asthma, Bronchitis, Emphysema, Pneumonia, Pulmonary Fibrosis, Cystic Fibrosis, Tuberculosis, Pulmonary Embolism or Pulmonary Edema GASTROINTESTINAL: Positive Gastrointestinal Disorders, Gastrointestinal Bleed, Ulcer and Obesity; Negative Hepatitis, Cirrhosis, Pancreatitis, Celiac Disease, Gall Bladder Di sease, Esophageal Varices, Kc's Esophagus, Colitis, Ulcerative Colitis, Diverticulitis, Diverticulosis, Colorectal Cancer, Irritable Bowel, Crohn's Disease, Obstructive Bowel, Hiatal Hernia, Hemorrhoids or Gastroesophageal Reflux Disease GENITOURINARY: Positive Genitourinary Disorders, Renal Disease and Dialysis; Negative Kidney Stones, Polycystic Kidney Disease, Neurogenic Bladder, Inguinal Hernia, Prostate Cancer or Benign Prostatic Hyperplasia REPRODUCTIVE: Negative Breast Cancer, Genital Herpes, Gonorrhea, Syphilis or Testicular Cancer MUSCULOSKELETAL: Negative Musculoskeletal Disorders, Muscular Dystrophy, Myasthenia Gravis, Marfan's Syndrome, Bone Cancer, Arthritis, Rheumatoid Arthritis, Osteoporosis, Degenerative Disk Disease, Gout, Scoliosis, Carpal Tunnel Syndrome, Fibromyalgia, Fractures, Degenerative Joint Disease, Osteomyelitis or Poliovirus ENT: Negative Cataracts, Glaucoma, Blind, Retinal Detachment, Macular Degeneration, Ear Infection, Deafness, Head Trauma or Eye Prosthesis ENDOCRINE: Positive Endocrine Disorders and Hypothyroidism; Negative Diabetes Mellitus Type 1, Diabetes Mellitus Type 2, Hypoglycemia, Óscar's Syndrome, Antwon's Disease, Hyperthyroidism, Parathyroid Disease, Pituitary Disease, Systemic Lupus Erythematosus, Syndrome of Inappropriate Antidiuretic Hormone (SIADH), Adrenal Disease or Graves' Disease HEMATOLOGIC: Positive Blood Disorders and Anemia; Negative Leukemia, Hemophilia, Thalassemia, Sickle Cell Disease or Clotting Problems PSYCHO/SOCIAL: Positive Depression and Anxiety; Negative Psychiatric Problems, Schizophrenia, Recreational Drug Use, Bipolar Disorder, Behavior Problems, Self-Mutilation, Attention Deficit Disorder, Attention Deficit Hyperactivity Disorder, Depression, Post Traumatic Stress Disorder or Eating Disorder OTHER HISTORY: Positive Blood Transfusions and Chicken Pox; Negative Hospitalization, Autoimmune Disease, Down Syndrome, Autism, Developmental Delay, Shingles, Falls, Blood Transfusion Reaction, Anesthesia Reactions, Organ Transplant, Chemotherapy, Radiation Therapy, Hyperbaric Therapy, MRSA, VRSA, Vancomycin-Resistant Enterococci, Human Immunodeficiency Virus (HIV), Measles, Mumps, Rubella (Bulgarian Measles), Pertussis, Clostridium Difficile, Cancer, Breast Cancer, Cervical Cancer, Colorectal Cancer, Lung Cancer, Ovarian Cancer, Prostate Cancer or Testicular Cancer Family History FAMILY HISTORY: Positive Family Psychiatric Problems and Family Respiratory Disorders; Negative Family Cardiac Disorders, Family Gastrointestinal Problems, Family Cancer, Family Surgery or Family Anesthesia Reaction Surgical History SURGICAL: Positive Vascular Surgery and Tonsillectomy; Negative Cardiac Surgery, Open Heart Surgery, Coronary Artery Bypass Graft, Valve Replacement, Coronary Stent, Cardiac Catheterization, Pacemaker, Angiogram, Auto Implanted Cardiovert Defib, Carotid Endarterectomy, Endocrine Surgery, Thyroidectomy, Ear Surgery, Tympanostomy Tube, Eye Surgery, Nose Surgery, Oral Surgery, Adenoidectomy, Cochlear Implant, Corneal Transplant, Throat Surgery, Abdominal Surgery, Tracheostomy, Gastric Bypass Surgery, Gastrostomy, Bowel Surgery, Nephrectomy, Transurethral Resection, Joint Replacement, Amputation, Open Reduction Internal Fixation, Arthroscopy, Neurologic Surgery, Brain Shunt, Vasectomy or Organ Transplant Social History SMOKING STATUS: Never smoker SECOND HAND EXPOSURE: No SUBSTANCE USE: does not use ED Exam Narrative Physical exam: Alert and oriented, nontoxic-appearing, afebrile 59-year-old male, no acute distress. Lungs are clear, regular rate and rhythm. Vital signs blood pressure 105/63, pulse 81, respirations 18 nonlabored, temp 98.2, O2 sat 97% on room air. Abdomen is soft and nontender. Moves all extremities well. Course Course Course Narrative: CBC reveals normal white count of 6.0 with significantly low H&H of 6.2/17.3 with low platelets of 50. INR is normal at 1.2, PTT PTT are both elevated at 12.7 and 37.2 respectively. Sodium and chloride are both low at 129/91. Potassium is normal at 4.6. Gap is normal at 15 and CO2 is normal at 23.1. BUN and creatinine are elevated at 71/10.6. Normal AST/ALT. Blood type O+, antibody screen negative. Patient was transfused with 2 units of PRBCs. He was given Tylenol 650 mg p.o. and Benadryl 25 mg p.o. Patient tolerated procedure well. He was discharged home in stable and improved condition. Quality Measures none Orders Category Date Time Status Commis Chef STAT Care 03/12/25 19:11 Completed EKG (ED ONLY) *Do not use* NOW Care 03/12/25 19:11 Completed Insert IV STAT Care 03/12/25 19:11 Completed Transfuse,blood/blood products ONCE Care 03/12/25 19:11 Completed EKG (ED Only) Stat Exams 03/12/25 19:11 Draft CBC Stat Lab 03/12/25 18:55 Completed CMP [Comprehensive Metabolic Panel] Stat Lab 03/12/25 18:55 Completed PT [Prothrombin Time with INR] Stat Lab 03/12/25 18:55 Completed PTT [Partial Thromboplastin Time] Stat Lab 03/12/25 18:55 Completed Red Blood Cells Stat Lab 03/12/25 18:55 Completed Type and Screen Stat Lab 03/12/25 18:55 Completed Acetaminophen Tab [Tylenol Tab] Med 03/12/25 19:11 Discontinued 650 mg PO X1 ONE DiphenhydrAMINE [Benadryl] Med 03/12/25 19:11 Discontinued 25 mg PO X1 ONE Vital Signs Vital signs: Vital Signs Temperature 98.2 F 03/12/25 18:19 Pulse Rate 81 03/12/25 18:19 Respiratory Rate 18 03/12/25 18:19 Blood Pressure 105/63 03/12/25 18:19 Pulse Oximetry (%) 97 03/12/25 18:19 Oxygen Delivery Method Room Air 03/12/25 18:19 Discharge Plan Plan Patient Disposition: HOME (Self Care) Discharge Disposition comment: Stable and improved Prescriptions/Referrals Prescriptions/Med Rec: No Action furosemide 40 mg Tablet 40 mg PO QDAY carvedilol 12.5 mg Tablet 12.5 mg PO BID Rx Instructions: must administer with a meal/food diphenhydramine HCl [Benadryl] 25 mg Capsule 25 mg PO TID PRN (Reason: Itching) [facility] Rx 1-60-300 mg-mg-mcg tablet 1 tab PO QDAY Patient Comments: TAKE 1 TABLET BY MOUTH DAILY Velphoro 500 mg tablet,chewable 500 mg PO QID Patient Comments: CHEW AND SWALLOW 1 TABLET BY MOUTH FOUR TIMES DAILY WITH FOOD levothyroxine 112 mcg tablet 112 mcg PO ACBR Referrals: Shad Cotton MD [Primary Care Provider] - In 1 week Problem List Clinical Impression: Anemia, ESRD on hemodialysis Patient/Caregiver Discharge Instructions Education Materials: Anemia and Kidney Disease Additional Instructions: Follow-up with your primary care physician in 24 to 48 hours. Return to the ED for any new or worsening symptoms. Print Language: Pashto Stand Alone Forms: Bridget Award Info., Patient Portal Info Letter ALEKSANDR/VINCENT Supervising Physician ALEKSANDR/VINCENT Supervising Physician: Dr. Magui MOBLEY Narrative [facility] hospital course: 59-year-old male presents to the ED with a complaint of needing a blood transfusion. He has a past medical history of end-stage renal disease on hemodialysis and needs frequent blood transfusions. He is feeling fatigue and tiredness as well as excessive sleepiness. Alert and oriented, nontoxic-appearing, afebrile 59-year-old male, no acute distress. Lungs are clear, regular rate and rhythm. Vital signs blood pressure 105/63, pulse 81, respirations 18 nonlabored, temp 98.2, O2 sat 97% on room air. Abdomen is soft and nontender. Moves all extremities well. CBC reveals normal white count of 6.0 with significantly low H&H of 6.2/17.3 with low platelets of 50. INR is normal at 1.2, PTT PTT are both elevated at 12.7 and 37.2 respectively. Sodium and chloride are both low at 129/91. Potassium is normal at 4.6. Gap is normal at 15 and CO2 is normal at 23.1. BUN and creatinine are elevated at 71/10.6. Normal AST/ALT. Blood type O+, antibody screen negative. Patient was transfused with 2 units of PRBCs. He was given Tylenol 650 mg p.o. and Benadryl 25 mg p.o. Patient tolerated procedure well. He was discharged home in stable and improved condition. Procedures done or offered: Transfusion x 2 units of PRBCs. Clinical Information Provided by patient Medical Records Reviewed [facility] Frequent transfusions for anemia secondary to chronic renal disease. Meds/Rx Considered, not Ordered None Labs/Rad/Tests considered, not Ordered None Chronic Illness/Social Conditions which may negatively complicate care or outcome(s)-explain: other (End-stage renal disease on hemodialysis.) EKG EKG Interpretation narrative: Sinus rhythm with first-degree AV block. No STEMI Lab Interpretation Labs: interpreted by ri Lab(s) interpretation(s): CBC reveals normal white count of 6.0 with significantly low H&H of 6.2/17.3 with low platelets of 50. INR is normal at 1.2, PTT PTT are both elevated at 12.7 and 37.2 respectively. Sodium and chloride are both low at 129/91. Potassium is normal at 4.6. Gap is normal at 15 and CO2 is normal at 23.1. BUN and creatinine are elevated at 71/10.6. Normal AST/ALT. Blood type O+, antibody screen negative. Imaging Imaging interpretation: none Provider imaging interpretation(s): N/A Radiology reports / interpretation(s): N/A Medication Administration(s) Medication Administration History Discontinued Medications Acetaminophen (Acetaminophen 325 Mg Tablet) 650 mg PO X1 ONE Stop: 03/12/25 19:12 Last Admin: 03/12/25 19:49 Dose: 650 mg Documented By: BD Diphenhydramine HCl (Diphenhydramine 25 Mg Capsule) 25 mg PO X1 ONE Stop: 03/12/25 19:12 Last Admin: 03/12/25 19:49 Dose: 25 mg Documented By: BD Tylenol 650 mg p.o., Benadryl 25 mg p.o. Diagnosis Differential diagnosis: Acute blood loss anemia, anemia secondary to end-stage renal disease on HD Most likely dx, and/or detailed dx discussion: Anemia secondary to end-stage renal disease on HD Dispositon Disposition: Discharge Home
[2025-03-13 02:28] VITALS: BP 133/55; PULSE 64; RESP 20; TEMP 36.7; O2SAT 98
== END 2025-03-13 02:35 | disposition home or self-care (01) ==
PROVIDERS: Physician Assistant; Emergency Provider Emergency Medicine; PCP Internal Medicine
DX: N18.6 End stage renal disease (principal); D63.1 Anemia in chronic kidney disease; I44.0 Atrioventricular block, first degree; I25.2 Old myocardial infarction
CPT/HCPCS: 36415; 36430; 80053; 85025; 85610; 85730; 86850; 86900; 86901; 86902; 86921; 86922; 99285; P9016; A9270

== ENCOUNTER 2025-03-16 18:18 | Emergency (ER) | payer MEDICARE, MEDICAID, SELFPAY ==
[2025-03-16 20:07] VITALS: BP 105/64; PULSE 74; RESP 20; TEMP 36.4; O2SAT 100; BMI 36.8
--- NOTE | 2025-03-16 20:25 | EDNOTE_ITS ---
<Statement entered by Mary Lou Stevens MD - 03/17/25 23:26> As co-signing physician, I was present and available for consult prn. I concur with the plan and care as documented by the midlevel provider. ED Recheck Abnl Lab Rx-RME/HPI General Chief Complaint: Recheck/Abnormal Lab/Rx Stated Complaint: Hemoglobin 6.8, can't get dialysis Time Seen by Provider: 03/16/25 20:21 Arrival date/time: 03/16/25 18:18 RME / HPI RME / HPI narrative: 59-year-old male patient with significant history of end-stage renal disease, came in for evaluation regarding request for blood transfusion. Patient had hemodialysis yesterday and was told that hemoglobin was 6.8. Patient is complaining of generalized body weakness. Denies any bleeding denies any vomiting blood or blood in the stool denies any fever. Related Data Home Medications ?Medication ?Instructions ?Recorded ?Confirmed diphenhydramine HCl 25 mg capsule 25 mg PO TID PRN Itc adrian 08/20/22 02/10/25 (Benadryl) vitamin B comp no.3-folic acid 1 1 tab PO QDAY 2 02/10/25 mg-vit C 60 mg-biotin 300 mcg tablet ([facility]) sucroferric oxyhydroxide 500 mg 500 mg PO QID 10/03/22 02/10/25 chewable tablet (Velphoro) carvedilol 12.5 mg tablet 12.5 mg PO BID 08/04/2301/20 Held on 02/11/25. Instructions: Resume on 02/17/25. Hold until follow up with primary care physician furosemide 40 mg tablet 40 mg PO QDAY 08/04/2302/10 levothyroxine 112 mcg tablet 112 mcg PO ACBR 02/10/25 02/10/25 Allergies Allergy/AdvReac Type Severity Reaction Status Date / Time adhesive tape Allergy Severe Rash Verified 03/16/25 18:23 Review of Systems Review of Systems Narrative Review of Systems: Review of system reviewed and within normal limits except mentioned in HPI ED Exam Narrative Physical exam: VITAL SIGNS: Reviewed. GENERAL APPEARANCE: Alert and interactive, follows commands, no acute distress, HEAD AND FACE: Non-traumatic. ENT: PERRL, pale conjunctiva, eyelid no trauma, Mucous membrane moist. NECK: Supple, nontender, no nuchal rigidity. CHEST: No tenderness, no crepitus, no paradoxical movement, no retractions. LUNGS: Clear, well ventilated, symmetric, no rales, no wheezing, no ronchi, no stridor, good breath sounds bilaterally. HEART: Regular rate, regular rhythm, no murmur, no gallops. ABDOMEN: Soft, positive bowel sounds, nondistended, no guarding, nontender, no rebound, no masses, RECTAL: Deferred. GENITAL: Deferred. NEUROLOGICAL: Gross motor function intact sensory function intact, Appropriate for age. MUSCULOSKELETAL: low back nontender, full range of motion. EXTREMITIES: Nontender, full range of motion. SKIN: Color pale, dry, no rash, no lacerations, no abrasions, no contusions. LYMPHATICS: Deferred. Course Quality Measures none Orders Category Date Time Status Insert IV NOW Care 03/16/25 21:48 Completed Transfuse,blood/blood products ONCE Care 03/16/25 20:24 Completed EKG (ED Only) Stat Exams 03/16/25 20:09 Stop Req CBC [CBC] Stat Lab 03/16/25 20:45 Completed CMP [Comprehensive Metabolic Panel] Stat Lab 03/16/25 20:45 Completed Path Review Blood Smear Stat Lab 03/16/25 20:45 Completed Type and Screen Stat Lab 03/16/25 20:45 Completed prbc [Red Blood Cells] Stat Lab 03/16/25 20:45 Completed Vital Signs Vital signs: Vital Signs Temperature 97.6 F 03/16/25 20:07 Pulse Rate 74 03/16/25 20:07 Respiratory Rate 20 03/16/25 20:07 Blood Pressure 105/64 03/16/25 20:07 Pulse Oximetry (%) 100 03/16/25 20:07 Oxygen Delivery Method Room Air 03/16/25 20:07 Recheck / Abnormal Lab / Rx MDM Narrative MDM Narrative:: 59-year-old male patient with significant history of end-stage renal disease, came in for evaluation regarding request for blood transfusion. Patient had hemodialysis yesterday and was told that hemoglobin was 6.8. Patient is complaining of generalized body weakness. Denies any bleeding denies any vomiting blood or blood in the stool denies any fever. Patient's hemoglobin was noted to be 6.9, hematocrit of 20.1 Patient received 2 units of packed RBC in the ED emergency room. No complication noted. Patient data External records reviewed:: None Clinical information provided by:: patient Social determinants that could affect healthcare access:: none Patient has the following chronic illnesses:: ESRD, history of chronic anemia How is presenting disease/condition affected by chronic disease/condition?: exacerbated by Evaluation data The following diagnostics were reviewed and interpreted by me:: lab results Lab and/or radiology exams considered but not ordered:: None Interpretation Summary: See results MDM Medications / Prescriptions Medications or Prescriptions considered but not ordered:: None Medication administrations:: None Consultations Consultation(s) initiated? (list below): No Diagnosis Recheck Differential Diagnosis: other (Anemia chronic disease, iron deficiency anemia, ESRD) Most likely diagnosis given after review of the tests above:: Anemia chronic disease Admission Indicated Admission indicated?: not indicated Explain why admission is indicated or not indicated:: Stable for discharge Admission Request Was there a request for admission?: No Disposition Plan Disposition Plan: Discharge Discharge Attestation Discharge Attestation: The patient was given an opportunity to ask questions and understood the discharge instructions. Discharge instructions specifically effects, indications for sooner follow up or return to the emergency department, and the expected course of current diagnosis. Patient condition: Stable Discharge Plan Plan Patient Disposition: HOME (Self Care) Discharge Disposition comment: Stable Prescriptions/Referrals Prescriptions/Med Rec: No Action furosemide 40 mg Tablet 40 mg PO QDAY carvedilol 12.5 mg Tablet 12.5 mg PO BID Rx Instructions: must administer with a meal/food diphenhydramine HCl [Benadryl] 25 mg Capsule 25 mg PO TID PRN (Reason: Itching) Mere-[facility] Rx 1-60-300 mg-mg-mcg tablet 1 tab PO QDAY Patient Comments: TAKE 1 TABLET BY MOUTH DAILY Velphoro 500 mg tablet,chewable 500 mg PO QID Patient Comments: CHEW AND SWALLOW 1 TABLET BY MOUTH FOUR TIMES DAILY WITH FOOD levothyroxine 112 mcg tablet 112 mcg PO ACBR Referrals: No Primary/Family,Physician [Primary Care Provider] - In 1 week Problem List Clinical Impression: Anemia, ESRD on hemodialysis Patient/Caregiver Discharge Instructions Discharge Activity: activity as tolerated Education Materials: Anemia Additional Instructions: Thank you for the opportunity for serving you today. You are stable for discharged . You are advised to: Follow-up with your PCP in 1 to 2 days Return to ED for worsening of symptoms Print Language: Wolof Stand Alone Forms: Bridget Award Info., Patient Portal Info Letter ALEKSANDR/VINCENT Supervising Physician ALEKSANDR/VINCENT Supervising Physician: MD Angella
[2025-03-16 21:01] LABS: Basophils % (Auto) 1 % (0-2.5); Eosinophils # (Auto) 0.1 Thou/mm3 (0.0-0.5); Eosinophils % (Auto) 2 % (0-10); Immature Granulocytes % (Auto) 1 % (0-0); Immature Granulocytes Auto 0.04 Thou/mm3 (0.00-0.00); Lymphocytes # (Auto) 0.8 Thou/mm3 (1.0-4.8); Lymphocytes % (Auto) 24 % (10-50); Mean Corpuscular HGB Conc 34.3 g/dl (31.0-37.0); Mean Corpuscular Volume 85 fL (80-100); Monocytes # (Auto) 0.2 Thou/mm3 (0.0-0.8); Monocytes % (Auto) 7 % (0-12); Neutrophils # (Auto) 2.1 Thou/mm3 (1.8-7.7); Neutrophils % (Auto) 65 % (37-80); Nucleated Red Blood Cell % 0 /100 WBC (0); RDW Standard Deviation 45.3 fL (35.1-43.9); Red Blood Count 2.38 Miln/mm3 (4.50-5.90); White Blood Count 3.3 Thou/mm3 (3.8-10.6)
[2025-03-16 21:09] LABS: Hematocrit 20.1 % (41.0-53.0); Hemoglobin 6.9 g/dL (13.5-16.0); Platelet Count 53 Thou/mm3 (140-440)
[2025-03-16 21:27] LABS: Alanine Aminotransferase < 7 U/L (10-49); Albumin, Serum 3.3 gm/dL (3.5-5.0); Albumin/Globulin Ratio 0.8 (1.2-2.2); Alkaline Phosphatase 118 U/L (46-116); Anion Gap 9 (7-16); Aspartate Amino Transferase 11 U/L (0-34); BUN/Creatinine Ratio 5 Ratio (12-20); Bilirubin,Total 0.5 mg/dL (0.3-1.2); Blood Urea Nitrogen 30 mg/dL (9-23); Calcium 8.2 mg/dL (8.3-10.6); Calcium (Corrected) 8.8 mg/dL (8.5-10.1); Carbon Dioxide 31.8 mMol/L (20.0-31.0); Chloride 94 mMol/L (98-107); Creatinine (Component) 5.7 mg/dL (0.6-1.3); Estimated Creatinine Clearance 20.2 mL/min (>60); Globulin 4.2 gm/dL (2.3-3.5); Glucose 87 mg/dL (74-106); Osmolality,Calculated 275 (275-295); Sodium 135 mMol/L (136-145); Total Protein 7.5 gm/dL (5.7-8.2); eGFR 11 See Note
[2025-03-16 21:55] LABS: Slide Review Platelets confirmed
[2025-03-16 22:02] LABS: Path Review Blood Smear Sent to Pathologist
[2025-03-16 22:40] VITALS: BP 122/63; PULSE 65; RESP 18; TEMP 36.4; O2SAT 100
[2025-03-16 22:54] VITALS: BP 112/61; PULSE 58; RESP 18; TEMP 36.5; O2SAT 98
[2025-03-16 22:57] VITALS: BP 112/61; PULSE 65; RESP 18; TEMP 36.5; O2SAT 98
[2025-03-16 23:12] VITALS: BP 126/67; PULSE 61; RESP 18; TEMP 36.7; O2SAT 99
[2025-03-16 23:50] VITALS: BP 123/71; PULSE 60; RESP 18; TEMP 36.6; O2SAT 100
[2025-03-17] VITALS (10 sets, daily range): BP systolic 114–146; BP diastolic 46–76; PULSE 57–64; RESP 18; TEMP 36.4–36.8; O2SAT 94–100
== END 2025-03-17 05:08 | disposition home or self-care (01) ==
PROVIDERS: Nurse Practitioner Family; Emergency Provider Emergency Medicine
DX: N18.6 End stage renal disease (principal); D63.1 Anemia in chronic kidney disease; Z99.2 Dependence on renal dialysis
CPT/HCPCS: 36415; 36430; 80053; 85025; 86850; 86900; 86901; 86902; 86921; 86922; 99285; P9016

== ENCOUNTER 2025-03-22 16:18 | Emergency (ER) | payer MEDICARE, MEDICAID, SELFPAY ==
[2025-03-22 16:34] VITALS: BP 114/64; PULSE 71; RESP 20; TEMP 36.5; O2SAT 98; BMI 39.3
--- NOTE | 2025-03-22 16:43 | PD.EDRME ---
Rapid Medical Screening Exam RME Arrival date/time: 03/22/25 16:18 59-year-old male with a history of hypertension, hypothyroidism, end-stage renal disease on dialysis presents to the emergency room with a chief complaint of weakness and fatigue. Patient states his hemoglobin level is low as he gets a blood transfusion every 4 days. I have greeted and performed a focused initial assessment of this patient. A comprehensive ED assessment and evaluation of the patient, analysis of all test results, and completion of the medical decision making process will be conducted by additional ED providers. Chief Complaint: Recheck/Abnormal Lab/Rx Time Seen by Provider: 03/22/25 16:26 Vital signs: Vital Signs Temperature 97.7 F 03/22/25 16:34 Pulse Rate 71 03/22/25 16:34 Respiratory Rate 20 03/22/25 16:34 Blood Pressure 114/64 03/22/25 16:34 Pulse Oximetry (%) 98 03/22/25 16:34 Oxygen Delivery Method Room Air 03/22/25 16:34 Vital signs reviewed by provider: Yes
[2025-03-22 17:18] LABS: Basophils # (Auto) 0.0 Thou/mm3 (0.0-0.2); Basophils % (Auto) 1 % (0-2.5); Eosinophils # (Auto) 0.1 Thou/mm3 (0.0-0.5); Eosinophils % (Auto) 3 % (0-10); Immature Granulocytes Auto 0.01 Thou/mm3 (0.00-0.00); Lymphocytes # (Auto) 0.6 Thou/mm3 (1.0-4.8); Lymphocytes % (Auto) 16 % (10-50); Mean Corpuscular HGB Conc 35.4 g/dl (31.0-37.0); Mean Corpuscular Hemoglobin 29.3 pg (25.0-35.0); Mean Corpuscular Volume 83 fL (80-100); Monocytes # (Auto) 0.2 Thou/mm3 (0.0-0.8); Monocytes % (Auto) 6 % (0-12); Neutrophils # (Auto) 2.7 Thou/mm3 (1.8-7.7); Neutrophils % (Auto) 74 % (37-80); Nucleated Red Blood Cell # 0.00 Thou/mm3 (0.00-0.00); Nucleated Red Blood Cell % 0 /100 WBC (0); RDW Standard Deviation 43.3 fL (35.1-43.9); Red Blood Count 2.39 Miln/mm3 (4.50-5.90); White Blood Count 3.6 Thou/mm3 (3.8-10.6)
[2025-03-22 17:39] LABS: Alanine Aminotransferase < 7 U/L (10-49); Albumin, Serum 3.2 gm/dL (3.5-5.0); Albumin/Globulin Ratio 0.8 (1.2-2.2); Alkaline Phosphatase 116 U/L (46-116); Anion Gap 5 (7-16); Aspartate Amino Transferase 10 U/L (0-34); BUN/Creatinine Ratio 4 Ratio (12-20); Bilirubin,Total 0.6 mg/dL (0.3-1.2); Blood Urea Nitrogen 14 mg/dL (9-23); Calcium 8.0 mg/dL (8.3-10.6); Calcium (Corrected) 8.6 mg/dL (8.5-10.1); Carbon Dioxide 33.8 mMol/L (20.0-31.0); Chloride 96 mMol/L (98-107); Creatinine (Component) 3.3 mg/dL (0.6-1.3); Estimated Creatinine Clearance 36.2 mL/min (>60); Globulin 3.9 gm/dL (2.3-3.5); Glucose 95 mg/dL (74-106); Osmolality,Calculated 270 (275-295); Potassium 3.6 mMol/L (3.4-5.1); Sodium 135 mMol/L (136-145); Total Protein 7.1 gm/dL (5.7-8.2); eGFR 21 See Note
[2025-03-22 17:43] LABS: INR 1.2 (0.9-1.3); Partial Thromboplastin Time 42.4 Seconds (22.0-36.0); Prothrombin Time 12.9 Seconds (9.0-12.2)
[2025-03-22 17:47] LABS: Hematocrit 19.8 % (41.0-53.0); Hemoglobin 7.0 g/dL (13.5-16.0); Platelet Count 37 Thou/mm3 (140-440)
[2025-03-22 18:06] LABS: Slide Review Platelets confirmed
[2025-03-22 20:14] VITALS: BP 107/79; PULSE 71; RESP 20; TEMP 36.4; O2SAT 98
--- NOTE | 2025-03-22 20:23 | PD.EDADULT ---
ED General RME/HPI General Chief complaint: Recheck/Abnormal Lab/Rx Stated complaint: LOW HGB Time Seen by Provider: 03/22/25 16:26 Source: patient Arrival date/time: 03/22/25 16:18 Mode of arrival: ambulatory Limitations: no limitations RME / HPI RME / HPI narrative: 03/22/25 16:18 59-year-old male with a history of hypertension, hypothyroidism, end-stage renal disease on dialysis presents to the emergency room with a chief complaint of weakness and fatigue. Patient states his hemoglobin level is low as he gets a blood transfusion every 4 days. I have greeted and performed a focused initial assessment of this patient. A comprehensive ED assessment and evaluation of the patient, analysis of all test results, and completion of the medical decision making process will be conducted by additional ED providers. Onset (ago): month(s) Related Data Home Medications ?Medication ?Instructions ?Recorded ?Confirmed diphenhydramine HCl 25 mg capsule 25 mg PO TID PRN Itching 08/20/22 02/10/25 (Benadryl) vitamin B comp no.3-folic acid 1 1 tab PO QDAY 08/20/22 02/10/25 mg-vit C 60 mg-biotin 300 mcg tablet (Mere-[facility] Rx) sucroferric oxyhydroxide 500 mg 500 mg PO QID 10/03/22 02/10/25 chewable tablet (Velphoro) carvedilol 12.5 mg tablet 12.5 mg PO BID 08/04/23 02/10/25 Held on 02/11/25. Instructions: Resume on 02/17/25. Hold until follow up with primary care physician furosemide 40 mg tablet 40 mg PO QDAY 08/04/23 02/10/25 levothyroxine 112 mcg tablet 112 mcg PO ACBR 02/10/25 02/10/25 Allergies Allergy/AdvReac Type Severity Reaction Status Date / Time adhesive tape Allergy Severe Rash Verified 03/16/25 18:23 Review of Systems Review of Systems Systems Reviewed: All systems reviewed, normal except as documented ED Exam Narrative Physical exam: Physical Exam GENERAL: NAD, AAOx3 HEENT: Moist mucosa. Eyes open, symmetrical, & clear CARDIO: Heart RRR, no obvious murmurs PULM: No noted coughing/dyspnea CTA B/L, no R/W/R GI: Abdomen soft, nondistended, no pain on palpation. BSx4 SKIN/MSK/EXT: open wound on LLE (chronic and dressed), LUE fistula, varicose veins, no pain on palpation. Pedal pulses present B/L NEURO: AAOx3, no focal neuro deficits, able to move all 4 extremities General Limitations: Present no limitations Course Course Course Narrative: 2046 2pRBCs requested and transfusion orders placed, consent signed, EKG ordered 2114 EKG reviewed NSR, awaiting transfusion Quality Measures none Orders Category Date Time Status EKG (ED ONLY) *Do not use* NOW Care 03/22/25 20:47 Completed Transfuse,blood/blood products NOW Care 03/22/25 20:47 Active EKG (ED Only) Stat Exams 03/22/25 20:47 Draft CBC Stat Lab 03/22/25 16:51 Completed CMP [Comprehensive Metabolic Panel] Stat Lab 03/22/25 16:51 Completed PT [Prothrombin Time with INR] Stat Lab 03/22/25 16:51 Completed PTT [Partial Thromboplastin Time] Stat Lab 03/22/25 16:51 Completed Type and Screen Stat Lab 03/22/25 16:51 Completed prbc [Red Blood Cells] Stat Lab 03/22/25 16:51 Completed Vital Signs Vital signs: Vital Signs Temperature 97.7 F 03/22/25 16:34 Pulse Rate 71 03/22/25 16:34 Respiratory Rate 20 03/22/25 16:34 Blood Pressure 114/64 03/22/25 16:34 Pulse Oximetry (%) 98 03/22/25 16:34 Oxygen Delivery Method Room Air 03/22/25 16:34 Discharge Plan Plan Patient condition on transfer: Stable Prescriptions/Referrals Prescriptions/Med Rec: No Action furosemide 40 mg Tablet 40 mg PO QDAY carvedilol 12.5 mg Tablet 12.5 mg PO BID Rx Instructions: must administer with a meal/food diphenhydramine HCl [Benadryl] 25 mg Capsule 25 mg PO TID PRN (Reason: Itching) Mere-Martín Rx 1-60-300 mg-mg-mcg tablet 1 tab PO QDAY Patient Comments: TAKE 1 TABLET BY MOUTH DAILY Velphoro 500 mg tablet,chewable 500 mg PO QID Patient Comments: CHEW AND SWALLOW 1 TABLET BY MOUTH FOUR TIMES DAILY WITH FOOD levothyroxine 112 mcg tablet 112 mcg PO ACBR Referrals: Shad Cotton MD [Primary Care Provider] - In 1 week Problem List Clinical Impression: Anemia, History of blood transfusion Patient/Caregiver Discharge Instructions Education Materials: Anemia Additional Instructions: Return to the emergency department for any worsening symptoms, or any other concerns. Please go to your hemodialysis schedule. Print Language: Tongan Attestation Attestation I Dr. Perez was present for the pertinent history and physical exam findings where the patient was in the emergency department with the resident Dr. Taylor. I reviewed the management of this patient. I agree with the plan. I reviewed his note and agree. MDM Narrative [facility] hospital course: 59-year-old male with past medical history of hypertension, hypothyroidism, ESRD on hemodialysis Thursday, , Thursday presents to the ED due to weakness and fatigue. Patient states he has chronic anemia since about 12 years ago and that for the past 2 months he has been requiring blood transfusions every 4 to 5 days usually has 2 PRBCs transfused. He also states he will not be able to get dialysis unless his hemoglobin is above 7. Current hemoglobin here in the ER is 7.0, will transfuse 2 PRBCs and order EKG EKG reviewed no arrythmias, ST changes or abnormal rhythms Tranfusion orders placed for 2pRBC, will re-evaluate after transfusion and possibly dc home Clinical Information Provided by patient Medical Records Reviewed [facility] Chronic Illness/Social Conditions which may negatively complicate care or outcome(s)-explain: None or not applicable EKG Interpretation EKG #1: Date/time of EK03/22/25 8:25 pm
--- NOTE | 2025-03-22 20:47 | EKG_ITS ---
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
[2025-03-23] VITALS (11 sets, daily range): BP systolic 98–136; BP diastolic 47–85; PULSE 59–91; RESP 12–16; TEMP 3.4–38.1; O2SAT 95–99
[2025-03-23 05:54] LABS: Path Review Blood Smear Sent to Pathologist
== END 2025-03-23 05:58 | disposition home or self-care (01) ==
PROVIDERS: Nurse Practitioner Family; Emergency Provider Emergency Medicine; PCP Internal Medicine
DX: D64.9 Anemia, unspecified (principal); I44.0 Atrioventricular block, first degree; I12.0 Hypertensive chronic kidney disease with stage 5 chronic kidney disease or end stage renal disease; N18.6 End stage renal disease; Z99.2 Dependence on renal dialysis
CPT/HCPCS: 36415; 36430; 80053; 85025; 85610; 85730; 86850; 86900; 86901; 86902; 86921; 86922; 93005; 99285; P9016

== ENCOUNTER 2025-03-30 18:43 | Emergency (ER) | payer MEDICARE, MEDICAID, SELFPAY ==
[2025-03-30 19:15] VITALS: BP 105/65; PULSE 57; RESP 20; TEMP 36.9; O2SAT 98
--- NOTE | 2025-03-30 19:25 | EDRME_ITS ---
Rapid Medical Screening Exam [facility] Arrival date/time: 03/30/25 18:43 59M with history of ESRD (does not make urine), hypothyroidism, and chronic anemia presents to ED needing blood transfusion due to low hemoglobin from outpatient labs. Patient also wants something for a UTI due to genital pain. Chief Complaint: Recheck/Abnormal Lab/Rx Vital signs: Vital Signs Temperature 98.5 F 03/30/25 19:15 Pulse Rate 57 L 03/30/25 19:15 Respiratory Rate 20 03/30/25 19:15 Blood Pressure 105/65 03/30/25 19:15 Pulse Oximetry (%) 98 03/30/25 19:15 Oxygen Delivery Method Room Air 03/30/25 19:15
--- NOTE | 2025-03-30 19:44 | PD.EDRECHK ---
ED Recheck Abnl Lab Rx-RME/HPI General Chief Complaint: Recheck/Abnormal Lab/Rx Stated Complaint: Hemoglobin 6.6, weak Arrival date/time: 03/30/25 18:43 RME / HPI RME / HPI narrative: 03/30/25 18:43 59M with history of ESRD (does not make urine), hypothyroidism, and chronic anemia presents to ED needing blood transfusion due to low hemoglobin from outpatient labs. Patient also wants something for a UTI due to genital pain. Dr. Roberson?s Main ED Evaluation: 59yo male with a history of ESRD, hypothyroidism, anemia of chronic disease, requiring multiple transfusions presents to the ED for complaints of generalized fatigue and reported low hemoglobin in the 6 range. No fever, chills, vomiting, or near syncope reported. No chest pain or shortness of breath. Related Data Home Medications ?Medication ?Instructions ?Recorded ?Confirmed diphenhydramine HCl 25 mg capsule 25 mg PO TID PRN Itching 08/20/22 02/10/25 (Benadryl) vitamin B comp no.3-folic acid 1 1 tab PO QDAY 08/20/22 02/10/25 mg-vit C 60 mg-biotin 300 mcg tablet ([facility] Rx) sucroferric oxyhydroxide 500 mg 500 mg PO QID 10/03/22 02/10/25 chewable tablet (Velphoro) carvedilol 12.5 mg tablet 12.5 mg PO BID 08/04/23 02/10/25 Held on 02/11/25. Instructions: Resume on 02/17/25. Hold until follow up with primary care physician furosemide 40 mg tablet 40 mg PO QDAY 08/04/23 02/10/25 levothyroxine 112 mcg tablet 112 mcg PO ACBR 02/10/25 02/10/25 Allergies Allergy/AdvReac Type Severity Reaction Status Date / Time adhesive tape Allergy Severe Rash Verified 03/30/25 18:47 Review of Systems Review of Systems Systems Reviewed: All systems reviewed, normal except as documented ED Exam Narrative Physical exam: GENERAL APPEARANCE: alert and oriented x 4, well-nourished, chronically ill, no acute distress VITALS: All vitals were reviewed and the pulse ox is 98% on room air, which is normal according to my interpretation. HEENT: Normocephalic, atraumatic; pupils equal, round, reactive to light; EOMI; mucous membranes pink, moist; oropharynx clear NECK: Supple LUNGS: Diminished breath sounds; no wheezes, no rales, no rhonchi HEART: Regular rate, regular rhythm; distant heart sounds ABDOMEN: non distended; normal BS; soft, no tenderness, no guarding, no rebound; no masses, no organomegaly, no hernia BACK: no CVA tenderness EXTREMITIES: atraumatic; BLE edema; dressing in place to the left leg NEUROLOGIC: awake; alert and oriented x4; cranial nerves II-XII grossly intact; no focal sensory or motor deficits PSYCHIATRIC: appropriate mood and affect SKIN: warm, dry, elaine pale appearance; no rashes Course Quality Measures none Orders Category Date Time Status Medical Auditor NOW Care 03/30/25 21:27 Active Insert IV NOW Care 03/30/25 19:24 Active Transfuse,blood/blood products NOW Care 03/30/25 21:26 Active CBC Stat Lab 03/30/25 19:39 Completed CMP [Comprehensive Metabolic Panel] Stat Lab 03/30/25 19:39 Completed Packed Cells [Red Blood Cells] Stat Lab 03/30/25 19:39 Completed Type and Screen Stat Lab 03/30/25 19:39 Completed Acetaminophen Tab [Tylenol Tab] Med 03/30/25 21:26 Discontinued 650 mg PO X1 ONE DiphenhydrAMINE [Benadryl] Med 03/30/25 21:26 Discontinued 25 mg PO X1 ONE Vital Signs Vital signs: Vital Signs Temperature 98.5 F 03/30/25 19:15 Pulse Rate 57 L 03/30/25 19:15 Respiratory Rate 20 03/30/25 19:15 Blood Pressure 105/65 03/30/25 19:15 Pulse Oximetry (%) 98 03/30/25 19:15 Oxygen Delivery Method Room Air 03/30/25 19:15 Recheck / Abnormal Lab / Rx MDM Narrative MDM Narrative:: Scribe Attestation: 03/30/25 Lelo Flowers am scribing for and in the presence of Dr. Roberson. 59yo male with a history of ESRD, hypothyroidism, anemia of chronic disease, requiring multiple transfusions presents to the ED for complaints of generalized fatigue and reported low hemoglobin in the 6 range. No fever, chills, vomiting, or near syncope reported. Please see PE findings. Labs remarkable for Hemoglobin 6.2, normal platelets. Chemistries show baseline creatinine of 4.8 and normal potassium. Transfused 2U pRBCs over the course of 6 hours without incident. Patient reports subjective improvement and is stable for discharged. Diagnosis is anemia of chronic disease. Disposition: home. Patient data External records reviewed:: [facility] previous records (Per chart review, patient was seen here on 03/22/25 for anemia.) Clinical information provided by:: patient Social determinants that could affect healthcare access:: none Patient has the following chronic illnesses:: ESRD, hypothyroidism, anemia of chronic disease How is presenting disease/condition affected by chronic disease/condition?: caused by Evaluation data The following diagnostics were reviewed and interpreted by me:: lab results Lab and/or radiology exams considered but not ordered:: none Interpretation Summary: See MDM. Medications / Prescriptions Medications or Prescriptions considered but not ordered:: none Medication administrations:: Medication Administration History Discontinued Medications Acetaminophen (Acetaminophen 325 Mg Tablet) 650 mg PO X1 ONE Stop: 03/30/25 21:27 Last Admin: 03/30/25 21:56 Dose: 650 mg Documented By: Diphenhydramine HCl (Diphenhydramine 25 Mg Capsule) 25 mg PO X1 ONE Stop: 03/30/25 21:27 Last Admin: 03/30/25 21:56 Dose: 25 mg Documented By: see above Consultations Consultation(s) initiated? (list below): No Diagnosis Recheck Differential Diagnosis: other (anemia, dehydration, electrolyte abnormality) Most likely diagnosis given after review of the tests above:: see clinical impression below Admission Indicated Admission indicated?: not indicated Admission Request Was there a request for admission?: No Disposition Plan Disposition Plan: Discharge Discharge Attestation Discharge Attestation: The patient and all family members were given an opportunity to ask questions and understood the discharge instructions. Discharge instructions specifically effects, indications for sooner follow up or return to the emergency department, and the expected course of current diagnosis. Patient condition: Stable Discharge Plan Plan Patient Disposition: HOME (Self Care) Prescriptions/Referrals Prescriptions/Med Rec: No Action furosemide 40 mg Tablet 40 mg PO QDAY carvedilol 12.5 mg Tablet 12.5 mg PO BID Rx Instructions: must administer with a meal/food diphenhydramine HCl [Benadryl] 25 mg Capsule 25 mg PO TID PRN (Reason: Itching) Mere-Martín Rx 1-60-300 mg-mg-mcg tablet 1 tab PO QDAY Patient Comments: TAKE 1 TABLET BY MOUTH DAILY Velphoro 500 mg tablet,chewable 500 mg PO QID Patient Comments: CHEW AND SWALLOW 1 TABLET BY MOUTH FOUR TIMES DAILY WITH FOOD levothyroxine 112 mcg tablet 112 mcg PO ACBR Referrals: Shad Cotton MD [Primary Care Provider] - In 1 week Problem List Clinical Impression: Anemia, ESRD on hemodialysis Patient/Caregiver Discharge Instructions Education Materials: Anemia Additional Instructions: Follow-up with dialysis as scheduled. Return for fever vomiting or general worse condition. Print Language: [place] Stand Alone Forms: Bridget Award Info., Patient Portal Info Letter
[2025-03-30 20:05] LABS: Basophils # (Auto) 0.0 Thou/mm3 (0.0-0.2); Basophils % (Auto) 1 % (0-2.5); Eosinophils # (Auto) 0.1 Thou/mm3 (0.0-0.5); Eosinophils % (Auto) 3 % (0-10); Immature Granulocytes Auto 0.02 Thou/mm3 (0.00-0.00); Lymphocytes # (Auto) 0.7 Thou/mm3 (1.0-4.8); Lymphocytes % (Auto) 25 % (10-50); Mean Corpuscular HGB Conc 34.1 g/dl (31.0-37.0); Mean Corpuscular Hemoglobin 28.1 pg (25.0-35.0); Mean Corpuscular Volume 82 fL (80-100); Monocytes # (Auto) 0.2 Thou/mm3 (0.0-0.8); Monocytes % (Auto) 8 % (0-12); Neutrophils # (Auto) 1.7 Thou/mm3 (1.8-7.7); Neutrophils % (Auto) 62 % (37-80); Nucleated Red Blood Cell # 0.00 Thou/mm3 (0.00-0.00); Nucleated Red Blood Cell % 0 /100 WBC (0); RDW Standard Deviation 43.4 fL (35.1-43.9); Red Blood Count 2.21 Miln/mm3 (4.50-5.90)
[2025-03-30 20:08] LABS: White Blood Count 2.8 Thou/mm3 (3.8-10.6)
[2025-03-30 20:09] LABS: Hematocrit 18.2 % (41.0-53.0); Hemoglobin 6.2 g/dL (13.5-16.0); Platelet Count 46 Thou/mm3 (140-440)
[2025-03-30 20:30] LABS: Alanine Aminotransferase < 7 U/L (10-49); Albumin, Serum 3.3 gm/dL (3.5-5.0); Albumin/Globulin Ratio 0.8 (1.2-2.2); Alkaline Phosphatase 109 U/L (46-116); Anion Gap 10 (7-16); Aspartate Amino Transferase 11 U/L (0-34); BUN/Creatinine Ratio 4 Ratio (12-20); Bilirubin,Total 0.6 mg/dL (0.3-1.2); Blood Urea Nitrogen 21 mg/dL (9-23); Calcium 8.0 mg/dL (8.3-10.6); Calcium (Corrected) 8.6 mg/dL (8.5-10.1); Carbon Dioxide 33.6 mMol/L (20.0-31.0); Chloride 93 mMol/L (98-107); Creatinine (Component) 4.8 mg/dL (0.6-1.3); Globulin 4.0 gm/dL (2.3-3.5); Glucose 82 mg/dL (74-106); Osmolality,Calculated 275 (275-295); Potassium 4.1 mMol/L (3.4-5.1); Sodium 137 mMol/L (136-145); Total Protein 7.3 gm/dL (5.7-8.2); eGFR 13 See Note
[2025-03-30 20:40] LABS: Slide Review Platelets confirmed
[2025-03-30] MEDS: ACETAMINOPHEN 325 MG TABLET 650 MG PO (21:56)
[2025-03-30 22:30] VITALS: BP 109/40; PULSE 69; RESP 19; TEMP 36.6
[2025-03-30 22:45] VITALS: BP 93/39; PULSE 63; RESP 18; TEMP 36.4; O2SAT 94
[2025-03-30 23:00] VITALS: BP 114/48; PULSE 65; RESP 17; TEMP 36.5; O2SAT 100
[2025-03-30 23:15] VITALS: BP 110/62; PULSE 64; RESP 18; TEMP 36.4; O2SAT 95
[2025-03-31] VITALS (8 sets, daily range): BP systolic 113–145; BP diastolic 48–70; PULSE 61–68; RESP 16–18; TEMP 36.4–36.8; O2SAT 95–100
== END 2025-03-31 05:22 | disposition home or self-care (01) ==
PROVIDERS: Physician Assistant; Emergency Provider Emergency Medicine; PCP Internal Medicine
DX: N18.6 End stage renal disease (principal); D63.1 Anemia in chronic kidney disease; E03.9 Hypothyroidism, unspecified; Z99.2 Dependence on renal dialysis
CPT/HCPCS: 36415; 36430; 80053; 85025; 86850; 86900; 86901; 86902; 86921; 86922; 99284; P9016; A9270

== ENCOUNTER 2025-04-04 13:06 | Inpatient (IN) | payer MEDICARE, MEDICAID, SELFPAY ==
[2025-04-04] VITALS (42 sets, daily range): BP systolic 63–115; BP diastolic 38–63; PULSE 65–96; RESP 8–28; TEMP 36.5–38.5; O2SAT 87–100; BMI 36.8
--- NOTE | 2025-04-04 13:09 | EKG_ITS ---
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1965 Requested By: Aaron Hollis Order Number: [id number] Reading MD: Aaron Hollis Measurements Intervals [place] Rate: 91 P: 6 [place]: 222 QRS: 32 QRSD: 115 T: 117 QT: 397 QTc: 490 Interpretive Statements SINUS RHYTHM WITH FIRST DEGREE AV BLOCK WITH OCCASIONAL SUPRAVENTRICULAR PREMATURE COMPLEXES LOW QRS VOLTAGE IN PRECORDIAL LEADS [QRS DEFLECTION < 1.0 mV IN CHEST LEADS] POSSIBLE LATERAL MYOCARDIAL INFARCTION , OF INDETERMINATE AGE [30 ms Q WAVE IN I/aVL/V5/V6] Compared to ECG 03/22/2025 21:03:19 Low QRS voltage now present Myocardial infarct finding now present Sinus bradycardia no longer present Intraventricular conduction delay no longer present T-wave abnormality no longer present /store/S0/[id number]/ecg/[id number].pdf
[2025-04-04] MEDS: SODIUM CHLORIDE 0.9% 1000 ML 2,466 ML 2466 ML IV (13:50)
--- NOTE | 2025-04-04 13:54 | XR_ITS ---
Examination: AP chest single view Technique one AP portable semiupright chest single view Date and time: April 04, 2025 1359 hours INDICATIONS: Sepsis alert FINDINGS: Mild enlargement cardiac contour Prominent vascular congestion. No lobar pneumonia Prominent osteopenia IMPRESSION: Mild heart failure No lobar pneumonia
--- NOTE | 2025-04-04 13:54 | XR_ITS ---
Examination: CT left lower leg, without contrast. 2-D sagittal reconstructions. 2-D coronal reconstructions. 3-D reconstructions. Date and time of exam:April 04, 20252034 hours INDICATIONS: Left leg swelling and pain and sepsis alert today CTDI: vol (mGy):17.7 DLP: (mGycm):2180 Technique: Multiple 1.25 mm axial sections of the left lower extremity without intravenous contrast have been obtained. 2-D sagittal and coronal reconstructions have been obtained. 3-D reconstructions have been obtained. Low dose protocols were performed. One or more of the following dose reduction techniques were used; automated exposure control, adjustment of the mA and/or KV according to patient size, use of iterative reconstruction technique. Findings: Partial visualization left pelvic lymphadenopathy Prominent left groin lymphadenopathy, lymph nodes measuring up to 6 cm in the left groin and medial thigh Edema in the perineum and scrotal region Marked edema in the upper medial inner thigh History arterial vascular calcification Prominent edema surrounding the knee and lower leg and ankle IMPRESSION: Prominent cellulitis left lower extremity Significant lymphadenopathy left pelvis left groin and proximal thigh, differential would include metastatic lymphadenopathy, Hodgkin's disease, non-Hodgkin's lymphoma Negative for soft tissue abscess, negative for osteomyelitis
--- NOTE | 2025-04-04 13:54 | XR_ITS ---
Examination: CT chest, without intravenous contrast. CT abdomen, without intravenous contrast. CT pelvis, without intravenous contrast. 2-D sagittal and coronal reconstructions. 3-D reconstructions. Date and time of exam:April 04, 202520[address] abdomen and pelvis January 04, 2025 INDICATIONS: Sepsis alert today CTDI vol (mgy) 12.2 DLP (MGycm)1058. Technique: Multiple CT images, 3.0 mm slice thickness, obtained chest, abdomen, pelvis, with the high-resolution 64 slice scanner.. Sagittal and coronal 2-D reconstructions are obtained. 3-D reconstructions Low dose protocols were performed. One or more of the following dose reduction techniques were used; automated exposure control, adjustment of the mA and/or KV according to patient size, use of iterative reconstruction technique. Findings: No thoracic aortic aneurysm dilatation Main pulmonary artery segment 36 mm Moderate calcification left anterior descending coronary artery Significant mitral valvular calcification Mild enlargement cardiac contour No lobar pneumonia or pulmonary edema At least 10 subcentimeter bilateral pulmonary nodules ranging in size from 2 to 6 mm Cirrhosis, liver and nodular in contour with significant splenomegaly Cholelithiasis No pancreatic mass Normal adrenal glands Atrophic endstage [place] kidneys with renal arterial calcifications and 2 mm calcification lower pole left kidney Aorta normal size No bowel obstruction No pericecal inflammatory change 20 mm fat-containing umbilical hernia Multiple periaortic lymph nodes subcentimeter 20 mm left common iliac lymph node 36 mm left external iliac lymph node 6.3 cm left iliac lymph node Multiple right pelvic lymph nodes, the largest external iliac 34 mm Contracted urinary bladder with marked wall thickening No prostatomegaly Common femoral lymph nodes bilaterally are prominent Left common femoral central line tip projects iliac vein Prominent osteopenia IMPRESSION: Pulmonary artery hypertension At least 10 subcentimeter bilateral pulmonary nodules, consider early pulmonary nodular metastatic disease Negative for pneumonia Cirrhosis Significant splenomegaly Cholelithiasis, recommend hepatobiliary sonography follow-up to exclude cholecystitis End-stage [place] kidneys Significant abdominal and pelvic lymphadenopathy, differential would include metastatic lymphadenopathy, Hodgkin's disease non-Hodgkin's lymphoma Consider PET CT scan follow-up
--- NOTE | 2025-04-04 13:55 | PD.EDWEAK ---
ED Weakness RME/HPI General Chief complaint: Weakness Stated complaint: WEAKNESS Time Seen by Provider: 04/04/25 13:09 Arrival date/time: 04/04/25 13:06 Limitations: no limitations RME / HPI RME / HPI Narrative: 59-year-old male with a history of end-stage renal disease, chronic left leg wounds, and multiple transfusions in the past is here today for increased weakness. He is brought in by EMS for this. He was found to be hypotensive on scene with a blood pressure of 60/40, he received 1 L of lactated Ringer's and route. He was not tachycardic. He was found to be afebrile and route When patient arrived, his vital signs were rechecked, his blood pressure is 63/38, he has a temperature of 101.3 Fahrenheit. Heart rate at 89, respirations 19, O2 at 98% on room air. This triggered our sepsis alert. Patient states he has no acute pain. He denies any cough or congestion. He denies any diarrhea although when he arrives, he is covered in stool. He is answering questions appropriately. Discussed with attending ER physician. Related Data Home Medications ?Medication ?Instructions ?Recorded ?Confirmed diphenhydramine HCl 25 mg capsule 25 mg PO TID PRN Itching 08/20/22 02/10/25 (Benadryl) vitamin B comp no.3-folic acid 1 1 tab PO QDAY 08/20/22 02/10/25 mg-vit C 60 mg-biotin 300 mcg tablet ([facility]) sucroferric oxyhydroxide 500 mg 500 mg PO QID 10/03/22 02/10/25 chewable tablet (Velphoro) carvedilol 12.5 mg tablet 12.5 mg PO BID 08/04/23 02/10/25 Held on 02/11/25. Instructions: Resume on 02/17/25. Hold until follow up with primary care physician furosemide 40 mg tablet 40 mg PO QDAY 08/04/23 02/10/25 levothyroxine 112 mcg tablet 112 mcg PO ACBR 02/10/25 02/10/25 Allergies Allergy/AdvReac Type Severity Reaction Status Date / Time adhesive tape Allergy Severe Rash Verified 04/04/25 13:15 Review of Systems Review of Systems Systems Reviewed: All systems reviewed, normal except as documented ED Exam General Limitations: Present no limitations General appearance: Present alert and in distress Head Head exam: Present atraumatic Eye Eye exam: Present normal appearance, PERRL and EOMI ENT ENT exam: Present normal exam, normal oropharynx and mucous membranes moist Neck Neck exam: Present normal inspection, full ROM and trachea midline Chest Chest inspection: Present normal inspection and symmetric chest wall rise Respiratory Respiratory exam: Present normal lung sounds bilaterally Cardiovascular Cardiovascular exam: Present regular rate, normal rhythm and normal heart sounds Abdominal Exam Abdominal exam: Present soft and normal bowel sounds Extremities Exam Extremities exam: Present normal inspection and full ROM Back Exam Back exam: Present normal inspection and full ROM Neurological Exam Neurological exam: Present alert and oriented X3 Psychiatric Psychiatric exam: Present normal affect and normal mood Skin Skin exam: Present warm, dry and other (Patient has diffuse edema of his left leg with open sores. There is no purulent drainage.) Course Quality Measures none Orders Category Date Time Status COVID-19 Screening Questionnaire NOW Care 04/04/25 16:31 Ordered Decision to Admit X1 Care 04/04/25 16:31 Ordered EKG (ED ONLY) *Do not use* NOW Care 04/04/25 13:10 Completed IV [Insert IV] NOW Care 04/04/25 15:54 Active Insert IV NOW Care 04/04/25 14:54 Active Occult Blood,Stool (Nursing) ONCE Care 04/04/25 13:38 Active Urinary Catheter QS Care 04/04/25 13:[address] chest abdomen pelvis wo Stat Exams 04/04/25 13:[address] lower leg LT wo con Stat Exams 04/04/25 13:54 Ordered EKG (ED Only) Stat Exams 04/04/25 13:09 Draft XR chest 1V Stat Exams 04/04/25 13:54 Completed BNP [B-Type Natriuretic Peptide] Stat Lab 04/04/25 13:51 Completed Blood Culture (Lab) Stat Lab 04/04/25 14:22 Received CBC Stat Lab 04/04/25 13:51 Completed CMP [Comprehensive Metabolic Panel] Stat Lab 04/04/25 13:51 Completed CMP [Comprehensive Metabolic Panel] Stat Lab 04/04/25 15:31 Completed Lactic Acid [Lactate (Lactic Acid)] Stat Lab 04/04/25 13:51 Results Lipase Stat Lab 04/04/25 13:51 Completed Magnesium Stat Lab 04/04/25 13:51 Completed Troponin I Stat Lab 04/04/25 13:51 Completed Type and Screen Stat Lab 04/04/25 13:51 Results UA, C/S IF [Urinalysis, C/S if Indicated] Stat Lab 04/04/25 14:04 Completed prbc [Red Blood Cells] Stat Lab 04/04/25 13:51 Results Acetaminophen Tab [Tylenol ES Tab] Med 04/04/25 13:46 Discontinued 1,000 mg PO X1 ONE Dextrose 50% Syr [D50w Syringe Abboject] Med 04/04/25 15:53 Discontinued 50 ml IVP X1 ONE Glucagon Inj Med 04/04/25 15:13 Discontinued 1 mg IVP X1 ONE Glucagon Inj Med 04/04/25 15:39 Discontinued 1 mg IVP X1 ONE Magnesium Sulfate 4 GM Ivpb [Magnesium Sulfate Ivpb] Med 04/04/25 15:30 Active 4 gm in 50 ml IV X1 Piper/Tazo 3.375 gm Premix [Zosyn] Med 04/04/25 13:46 Discontinued 3.375 gm in 50 ml IV X1 Sodium Chloride 0.9% 1000 ml [Ns] 2,466 ml Med 04/04/25 13:36 Discontinued IV 2,466 mls/hr Vancomycin Inj 2,000 mg Med 04/04/25 13:50 Active Sodium Chloride 0.9% 500 ml [Ns] 500 ml IV X1 Vital Signs Vital signs: Vital Signs Temperature 101.3 F H 04/04/25 13:39 Pulse Rate 89 04/04/25 13:39 Respiratory Rate 19 04/04/25 13:39 Blood Pressure 63/38 L 04/04/25 13:39 Pulse Oximetry (%) 98 04/04/25 13:39 Oxygen Delivery Method Room Air 04/04/25 13:39 Weakness MDM Narrative MDM Narrative:: 59-year-old male with a history of end-stage renal disease, chronic left leg wounds, and multiple transfusions in the past is here today for increased weakness. He is brought in by EMS for this. He was found to be hypotensive on scene with a blood pressure of 60/40, he received 1 L of lactated Ringer's and route. He was not tachycardic. He was found to be afebrile and route When patient arrived, his vital signs were rechecked, his blood pressure is 63/38, he has a temperature of 101.3 Fahrenheit. Heart rate at 89, respirations 19, O2 at 98% on room air. This triggered our sepsis alert. Patient states he has no acute pain. He denies any cough or congestion. He denies any diarrhea although when he arrives, he is covered in stool. He is answering questions appropriately. Discussed with attending ER physician. Although it appears the patient is third spacing and has history of CHF, he appears to be in hypotensive shock we initiated fluid boluses while we confirmed his anemia. He was later found to have a hemoglobin of 5.2 and hematocrit of 15.2. 2 units of PRBC were requested. Patient's lactic acid was 3.1. Magnesium is 0.6. Initial troponin was 0.046. BNP is 250. Glucose was 30. An amp of glucagon and 2 mg of magnesium were requested. Case was discussed with patient's warehouse operations associate, Dr. Cotton who will speak to the hospital team regarding admission. She will follow. Case discussed with resident physician, Dr. Rock who will admit the patient. Patient data External records reviewed:: [facility] previous records Clinical information provided by:: patient and EMS Social determinants that could affect healthcare access:: none Patient has the following chronic illnesses:: End-stage renal disease, chronic wound How is presenting disease/condition affected by chronic disease/condition?: exacerbated by Evaluation data The following diagnostics were reviewed and interpreted by me:: lab results (Patient has no leukocytosis, he has a hemoglobin 5.2, hematocrit 15.2. Platelet count is 24. He has significant metabolic derangement. His creatinine is 5.4, glucose is 55, lactic acid is 3.1, calcium is 7.4, magnesium 0.6, BNP is 250 urinalysis reveals 17,000 leukocytes.) Lab and/or radiology exams considered but not ordered:: n/a Interpretation Summary: Urosepsis, anemia Medications / Prescriptions Medications or Prescriptions considered but not ordered:: n/a Medication administrations:: Medication Administration History Vancomycin HCl 2,000 mg/ (Sodium Chloride) 500 mls @ 120 mls/hr IV X1 ONE Stop: 04/04/25 17:59 Last Admin: 04/04/25 14:55 Dose: 120 mls/hr Documented By: DENISE Magnesium Sulfate (Magnesium Sulfate Ivpb) 4 gm in 50 mls @ 12.5 mls/hr IV X1 ONE Stop: 04/04/25 19:29 Last Admin: 04/04/25 16:16 Dose: 12.5 mls/hr Documented By: CATE Discontinued Medications Acetaminophen (Acetaminophen 500 Mg Tablet) 1,000 mg PO X1 ONE Stop: 04/04/25 13:47 Last Admin: 04/04/25 14:20 Dose: 1,000 mg Documented By: VL Dextrose (Dextrose 50%-Water Inj 50 Ml Syringe) 50 ml IVP X1 ONE Stop: 04/04/25 15:54 Last Admin: 04/04/25 16:03 Dose: 50 ml Documented By: MANNY Glucagon (Glucagon Inj 1 Mg Vial) 1 mg IVP X1 ONE Stop: 04/04/25 15:14 Last Admin: 04/04/25 15:18 Dose: 1 mg Documented By: CATE Glucagon (Glucagon Inj 1 Mg Vial) 1 mg IVP X1 ONE Stop: 04/04/25 15:40 Last Admin: 04/04/25 15:46 Dose: 1 mg Documented By: CATE Sodium Chloride (Ns) 2,466 mls @ 2,466 mls/hr 30 ml/kg infuse over 60 min (2466 ml) IV .Q1H ONE Stop: 04/04/25 14:35 Last Infusion: 04/04/25 14:50 Dose: Infused Documented By: Admin: 04/04/25 13:50 Dose: 2,466 mls/hr Documented By: CATE Piperacillin/Tazobactam/Dextrose (Zosyn) 3.375 gm in 50 mls @ 100 mls/hr IV X1 ONE Stop: 04/04/25 14:15 Last Infusion: 04/04/25 14:55 Dose: Infused Documented By: Admin: 04/04/25 14:20 Dose: 100 mls/hr Documented By: CATE See above Consultations Consultation(s) initiated? (list below): Yes Diagnosis Weakness Differential Diagnosis: anemia, hypoglycemia, sepsis and dehydration Most likely diagnosis given after review of the tests above:: Urosepsis, septic shock,, anemia Admission Indicated Admission indicated?: indicated Admission Request Was there a request for admission?: Yes Admission Attestation Admission request attestation: Discussed case with [] from Hospitalist service regarding admission. Discussed patients ED course, exam findings, labs, and radiology results. The Hospitalist [agrees,declines] to accept the patient for admission. Disposition Plan Disposition Plan: Admit Critical Care Time Critical Care Time Total Critical Care Time (min.): 60 Attestation: The high probability of sudden, clinically significant deterioration in the patient's condition required the highest level of my preparedness to intervene urgently. The services I provided to this patient were to treat and/or prevent clinically significant deterioration. Services included the following: chart data review, reviewing nursing notes and/or old charts, documentation time, beauty sales consultant collaboration regarding findings and treatment options, medication orders and management, direct patient care, vital sign assessments and ordering, interpreting and reviewing diagnostic studies and lab tests. Aggregate critical care time includes only time during which I was engaged in work directly related to the patient's care, as described above, whether at bedside or elsewhere in the Emergency Department. It did not include time spent performing other reported procedures or the services of residents, students, nurses or physician assistants. Discharge Plan Plan Patient Disposition: Admit Acute Care w/in Hospital Patient condition on transfer: Stable Prescriptions/Referrals Prescriptions/Med Rec: No Action furosemide 40 mg Tablet 40 mg PO QDAY carvedilol 12.5 mg Tablet 12.5 mg PO BID Rx Instructions: must administer with a meal/food diphenhydramine HCl [Benadryl] 25 mg Capsule 25 mg PO TID PRN (Reason: Itching) Mere-[facility] Rx 1-60-300 mg-mg-mcg tablet 1 tab PO QDAY Patient Comments: TAKE 1 TABLET BY MOUTH DAILY Velphoro 500 mg tablet,chewable 500 mg PO QID Patient Comments: CHEW AND SWALLOW 1 TABLET BY MOUTH FOUR TIMES DAILY WITH FOOD levothyroxine 112 mcg tablet 112 mcg PO ACBR Referrals: Shad Cotton MD [Primary Care Provider] - In 1 week Problem List Clinical Impression: Anemia, ESRD on hemodialysis, Sepsis, Acute UTI Patient/Caregiver Discharge Instructions Print Language: Ukrainian Stand Alone Forms: Bridget Award Info., Patient Portal Info Letter
[2025-04-04 14:17] LABS: Collection Type, Urine Voided
[2025-04-04 14:18] LABS: Lactate (Lactic Acid) 3.1 mMol/L (0.4-2.0)
[2025-04-04] MEDS: ACETAMINOPHEN 500 MG TABLET 1000 MG PO (14:20)
[2025-04-04] MEDS: PIPER/TAZO 3.375 GM PREMIX 3.375 GM/50 ML BAG IV ×2 (14:20→22:06)
[2025-04-04 14:23] LABS: Basophils # (Auto) 0.0 Thou/mm3 (0.0-0.2); Basophils % (Auto) 0 % (0-2.5); Eosinophils # (Auto) 0.0 Thou/mm3 (0.0-0.5); Eosinophils % (Auto) 1 % (0-10); Immature Granulocytes Auto 0.02 Thou/mm3 (0.00-0.00); Lymphocytes # (Auto) 0.3 Thou/mm3 (1.0-4.8); Lymphocytes % (Auto) 11 % (10-50); Mean Corpuscular HGB Conc 34.2 g/dl (31.0-37.0); Mean Corpuscular Hemoglobin 29.1 pg (25.0-35.0); Mean Corpuscular Volume 85 fL (80-100); Monocytes # (Auto) 0.2 Thou/mm3 (0.0-0.8); Monocytes % (Auto) 6 % (0-12); Neutrophils # (Auto) 2.4 Thou/mm3 (1.8-7.7); Neutrophils % (Auto) 80 % (37-80); Nucleated Red Blood Cell # 0.00 Thou/mm3 (0.00-0.00); Nucleated Red Blood Cell % 0 /100 WBC (0); RDW Standard Deviation 46.1 fL (35.1-43.9); Red Blood Count 1.79 Miln/mm3 (4.50-5.90); White Blood Count 3.0 Thou/mm3 (3.8-10.6)
[2025-04-04 14:30] LABS: Platelet Count 24 Thou/mm3 (140-440)
[2025-04-04 14:31] LABS: Hemoglobin 5.2 g/dL (13.5-16.0)
[2025-04-04 14:32] LABS: Hematocrit 15.2 % (41.0-53.0)
[2025-04-04] MEDS: Vancomycin Inj 2,000 MG in SODIUM CHLORIDE 0.9% 500 ML 500 ML 120 MG IV (14:55)
[2025-04-04 15:01] LABS: B-Type Natriuretic Peptide 250 pg/mL (0-100)
[2025-04-04 15:02] LABS: Bacteria,Urine Rare; Bilirubin,Urine Negative (Negative); Blood,Urine 2+ (Negative); Color,Urine Orange (Lt Yel-Yel); Culture Indicated,Urine Contaminated; Glucose, Urine Negative (Negative); Ketones,Urine Negative (Negative); Leukocyte Esterase,Urine Positive (Negative); Nitrite,Urine Negative (Negative); PH,Urine 7.5 (5.0-7.0); Protein,Urine 2+ (Neg - Trace); RBC,Urine 219 /hpf (0-3); Specific Gravity,Urine 1.010 (1.001-1.035); Squamous Epithelial Cell,Urine 14 /hpf (0-5); Urobilinogen,Urine Negative mg/dL (0.0-1.0); WBC,Urine 17117 /hpf (0-5)
[2025-04-04 15:05] LABS: Alanine Aminotransferase < 7 U/L (10-49); Albumin, Serum 1.7 gm/dL (3.5-5.0); Albumin/Globulin Ratio 0.8 (1.2-2.2); Alkaline Phosphatase 52 U/L (46-116); Anion Gap 13 (7-16); Aspartate Amino Transferase 22 U/L (0-34); BUN/Creatinine Ratio 5 Ratio (12-20); Bilirubin,Total 0.5 mg/dL (0.3-1.2); Blood Urea Nitrogen 17 mg/dL (9-23); Calcium (Corrected) 7.0 mg/dL (8.5-10.1); Carbon Dioxide 20.5 mMol/L (20.0-31.0); Chloride 114 mMol/L (98-107); Creatinine (Component) 3.6 mg/dL (0.6-1.3); Estimated Creatinine Clearance 32.1 mL/min (>60); Globulin 2.2 gm/dL (2.3-3.5); Lipase 10 U/L (12-53); Osmolality,Calculated 289 (275-295); Potassium 3.1 mMol/L (3.4-5.1); Sodium 147 mMol/L (136-145); Total Protein 3.9 gm/dL (5.7-8.2); eGFR 19 See Note
[2025-04-04 15:10] LABS: Calcium 5.2 mg/dL (8.3-10.6); Troponin I 0.046 ng/mL (0.0-0.045)
[2025-04-04 15:12] LABS: Magnesium 0.6 mg/dL (1.6-2.6)
[2025-04-04 15:13] LABS: Glucose 30 mg/dL (74-106)
[2025-04-04] MEDS: GLUCAGON INJ 1 MG VIAL IVP ×2 (15:18→15:46)
[2025-04-04 15:39] LABS: Clarity,Urine Cloudy (Clear/Hazy)
[2025-04-04] MEDS: DEXTROSE 50%-WATER INJ 50 ML SYRINGE IVP (16:03)
[2025-04-04 16:09] LABS: Alanine Aminotransferase < 7 U/L (10-49); Albumin, Serum 2.5 gm/dL (3.5-5.0); Albumin/Globulin Ratio 0.8 (1.2-2.2); Alkaline Phosphatase 77 U/L (46-116); Anion Gap 10 (7-16); Aspartate Amino Transferase 34 U/L (0-34); BUN/Creatinine Ratio 5 Ratio (12-20); Bilirubin,Total 0.8 mg/dL (0.3-1.2); Blood Urea Nitrogen 26 mg/dL (9-23); Calcium 7.4 mg/dL (8.3-10.6); Calcium (Corrected) 8.6 mg/dL (8.5-10.1); Carbon Dioxide 28.8 mMol/L (20.0-31.0); Chloride 100 mMol/L (98-107); Creatinine (Component) 5.4 mg/dL (0.6-1.3); Estimated Creatinine Clearance 21.4 mL/min (>60); Globulin 3.2 gm/dL (2.3-3.5); Glucose 55 mg/dL (74-106); Osmolality,Calculated 280 (275-295); Potassium 4.1 mMol/L (3.4-5.1); Sodium 139 mMol/L (136-145); Total Protein 5.7 gm/dL (5.7-8.2); eGFR 12 See Note
[2025-04-04 16:12] LABS: Slide Review Platelets confirmed
[2025-04-04] MEDS: Magnesium Sulfate 4 GM Ivpb 4 GM/50 ML BAG IV ×2 (16:16→19:59)
[2025-04-04 17:14] LABS: Reflex Lactate? Y
[2025-04-04] MEDS: LIDOCAINE HCL 1% 20 ML VIAL INFL (17:40)
--- NOTE | 2025-04-04 17:53 | PC.NURSE ---
NOTIFIED DR. SNYDER PATIENT'S BLOOD SUGAR OF 20. PATIENT IS ALERT AND ORIENTED. RESPONDS TO VERBAL STIMULI. BLOOD PRESSURE 75/47. DR. SNYDER AT BEDSIDE. PER WE WILL START PATIENT ON D10 IV.
--- NOTE | 2025-04-04 17:55 | PD.RESPROC ---
PROCEDURES: Procedure Date / Time 04/04/25 3055 Central Line Placement Left Femoral: Indication(s): shock and poor, or inadequate peripheral venous access Informed consent obtained: from patient and procedure done urgently Time out done, and the following verified: correct patient, side and site, procedure and patient position Hand Hygiene: scrub Max Sterile Barrier Techniques used: cap, mask, sterile gown, sterile gloves, sterile full body drape and other Central line prep: Chlorhexidine scrub Local anesthesia used: lidocaine 1% Amount of anesthesia used (mL): 3 Sterile Technique if Ultrasound used, including sterile gel: yes Central line lumen inserted: triple Post procedure: sutured in place, good blood return, all ports aspirated, flushed, capped and sterile dressing applied Post procedure x-ray: other Patient tolerated procedure: well EBL(ml): 5
--- NOTE | 2025-04-04 18:15 | PC.NURSE ---
PATIENT GIVE CUP FULL OF ORANGE JUICE PER DR. SNYDER ORDER. PATIENT WAITING D10 DRIP; PER PHARMACY D10 IS NOT STOCKED IN ED AND WILL BE BROUGHT BY TECH SHORTLY. PATIENT BEING EVALUATED FOR ICU ADMISSION.
[2025-04-04] MEDS: DEXTROSE 10%-WATER 1000 ML 1,000 ML 50 ML IV (18:32)
--- NOTE | 2025-04-04 18:40 | XR_ITS ---
Examination: Abdomen AP single view Technique: AP portable supine abdomen, single view Exam date and time: April 04, 2025, 1839 hours INDICATIONS: Post central line placement FINDINGS: Left common femoral central line tip in distribution left common iliac vein Multiple air distended small bowel loops No free air Moderate to advanced bilateral hip osteoarthritis IMPRESSION: Left common femoral line projects in satisfactory position
[2025-04-04 18:48] LABS: Lactate (Lactic Acid) 3.2 mMol/L (0.4-2.0)
[2025-04-04 19:07] LABS: Troponin I 0.078 ng/mL (0.0-0.045)
--- NOTE | 2025-04-04 19:26 | PD.RESCONSUL ---
HPI Data of Consult Requesting Physician: Kimberly Lauren DO Admitting Provider: Kimberly Lauren DO Attending Provider: Kimberly Lauren DO Primary Care Provider: Shad Cotton MD Consult Narrative Reason for consult: hypotension History of present illness: HPI: A 59-year-old male patient with past medical history of ESRD on hemodialysis MWF, hypothyroidism, HFpEF, chronic left leg ulcer, questionable bilateral venous insufficiency, history of osteomyelitis, chronic pancytopenia, presented to the ED due to generalized weakness for 3 days patient reported that he has been having excessive sweating because of the heat, also started to experience dysuria and change in color of urine. Yesterday night patient reported that he fell off the bed and was unable to get off the bed and slept to the next morning and he still was unable to get off the floor. He said that he has multiple episodes of diarrhea at the time in which he defecated and urinated on himself. After that he called the EMS in which when they brought him patient was covered with urine and feces. His feces was black in color and liquid and has multiple episodes of tenesmus and diarrhea of black tarry stool at the ED in which he was tested by the ED physician and it was negative for occult blood. Patient reported that he has not been able to eat for the past 1 day because of his generalized weakness. Patient denied any abdominal pain, cough, chest pain, shortness of breath, and denied any vomiting of blood. Patient reported that he has been regular in his hemodialysis and was recently prescribed antibiotics Home medications: Lasix, levothyroxine, Mere-Martín, Velphoro, however was still pending official medication reconciliation ED course: At the ED patient was found to have blood pressure of 63/38, pulse rate of 82, temperature of 101.3, patient was resuscitated with 2.4 L of fluids and was given 1 unit of blood. His blood pressure improved to 94/53. His temperature has resolved. Noticed hemoglobin to be 5.6, platelets of 2.4, magnesium 0.6, potassium 3.1, serum creatinine 5.4, blood glucose 55 albumin of 1.7. His urine analysis showed more than 17,000 WBC, more than 200 RBCs. Chest x-ray was only significant for questionable vascular congestion. Patient received multiple boluses of D50, D10, and his blood sugar continue to be in the low 50s and 40s. Patient was given 4 g of magnesium, was started on Zosyn and vancomycin. PMH: As above Family history: Emphysema in the mother side Social hx: Alcohol: Denied Tobacco: Denied Illicit drugs: Denied Allergies: Latex tape cc:: cc: Kimberly Lauren DO Review of Systems Review of Systems Systems Reviewed: All systems reviewed, normal except as documented Exam Vital Signs Temp Pulse Resp BP Pulse Ox O2 Del Method 98.0 F 76 18 91/48 L 95 Room Air 04/04/25 19:13 04/04/25 19:13 04/04/25 19:13 04/04/25 19:13 04/04/25 19:13 04/04/25 19:13 Narrative Exam GEN: AOx3, able to speak full sentences, disheveled HEENT: NC/AC, PERRLA, oral mucosa dry, neck supple CVS: RRR, S1-S2 present, no murmurs appreciated RESP: CTAB GI: soft,non distended, mild abdominal discomfort on deep palpation, exaggerated bowel sounds MSK: able to move all 4 limbs, left lower limb chronic ulcer with granulation tissue covered with Vaseline gauze, diameter approximately 17 cm in length and 5 cm in width, superficial. Trace lower extremity edema SKIN: Lower extremities hyperpigmentation bilaterally more on the left side. 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 Results Labs 04/04/25 13:51 04/04/25 15:31 Labs: Short CBC 04/04/25 Range/Units 13:51 WBC 3.0 L (3.8-10.6) Thou/mm3 Hgb 5.2 L* (13.5-16.0) g/dL Hct 15.2 L* (41.0-53.0) % Plt Count 24 L* D (140-440) Thou/mm3 BMP 04/04/25 04/04/25 13:51 15:31 Sodium 147 H 139 Potassium 3.1 L 4.1 D Chloride 114 H 100 Carbon Dioxide 20.5 28.8 BUN 17 26 H Creatinine 3.6 H D 5.4 H* D Glucose 30 L* 55 L D Calcium 5.2 L* 7.4 L D Cardiac Enzymes 04/04/25 04/04/25 Range/Units 13:51 18:30 Troponin I 0.046 H* 0.078 H* (0.0-0.045) ng/mL Liver Function 04/04/25 04/04/25 Range/Units 13:51 15:31 Total Bilirubin 0.5 0.8 (0.3-1.2) mg/dL AST 22 34 (0-34) U/L ALT < 7 L < 7 L (10-49) U/L Alkaline Phosphatase 52 77 D (46-116) U/L Albumin 1.7 L 2.5 L D (3.5-5.0) gm/dL Urine 04/04/25 Range/Units 14:04 Urine Color Murray A (Lt Yel-Yel) Urine Clarity Cloudy A (Clear/Hazy) Urine pH 7.5 H (5.0-7.0) Ur Specific Reedley 1.010 (1.001-1.035) Urine Protein 2+ A (Neg - Trace) Urine Glucose (UA) Negative (Negative) Quality Measures Quality Measures none Medications Home Medications and Allergies Home Medications ?Medication ?Instructions ?Recorded ?Confirmed ?Type diphenhydramine HCl 25 mg capsule 25 mg PO TID PRN Itching 08/20/22 02/10/25 History (Benadryl) vitamin B comp no.3-folic acid 1 1 tab PO QDAY 08/20/22 02/10/25 History mg-vit C 60 mg-biotin 300 mcg tablet (Mere-Martín Rx) sucroferric oxyhydroxide 500 mg 500 mg PO QID 10/03/22 02/10/25 History chewable tablet (Velphoro) carvedilol 12.5 mg tablet 12.5 mg PO BID 08/04/23 02/10/25 History Held on 02/11/25. Instructions: Resume on 02/17/25. Hold until follow up with primary care physician furosemide 40 mg tablet 40 mg PO QDAY 08/04/23 02/10/25 History levothyroxine 112 mcg tablet 112 mcg PO ACBR 02/10/25 02/10/25 History Allergies Allergy/AdvReac Type Severity Reaction Status Date / Time adhesive tape Allergy Severe Rash Verified 04/04/25 13:15 Visit Medications Acetaminophen (Acetaminophen 325 Mg Tablet) 650 mg PO Q6H PRN PRN Reason: PAIN SCALE 1-3 (mild Stop: 05/04/25 17:39 Acetaminophen (Acetaminophen 325 Mg Tablet) 650 mg PO Q6H PRN PRN Reason: Fever >100.4 Stop: 05/04/25 17:39 Hydrocodone Bitart/Acetaminophen (Hydrocodone/Apap 10/325 Tab) 1 tab PO Q4HR PRN PRN Reason: PAIN SCALE 7-10 (Severe Stop: 04/09/25 17:39 Dextrose (Dextrose 50%-Water Inj 50 Ml Syringe) 25 ml IV Q15MIN PRN PRN Reason: BG 50-70 responsive npo pt Stop: 05/04/25 19:17 Dextrose (Dextrose 50%-Water Inj 50 Ml Syringe) 50 ml IV Q15MIN PRN PRN Reason: BG <50 OR BG <70 & pt unresponsive Stop: 05/04/25 19:17 Glucagon (Glucagon Inj 1 Mg Vial) 1 mg IM Q15MIN PRN PRN Reason: BG <70, and no IV access Magnesium Sulfate (Magnesium Sulfate Ivpb) 4 gm in 50 mls @ 12.5 mls/hr IV X1 ONE Stop: 04/04/25 19:29 Last Admin: 04/04/25 16:16 Dose: 12.5 mls/hr Piperacillin/Tazobactam/Dextrose (Zosyn) 3.375 gm in 50 mls @ 12.5 mls/hr IV Q8HR MARIANO Stop: 04/11/25 21:59 Dextrose (D10w 1000 Ml) 1,000 mls @ 50 mls/hr IV .Q20H MARIANO Stop: 04/05/25 14:01 Last Admin: 04/04/25 18:32 Dose: 50 mls/hr Norepinephrine Bitartrate (Levophed In Ns 16mg/250ml) 16 mg in 250 mls @ 6.094 mls/hr IV .Q24H PRN; Protocol PRN Reason: PER PROTOCOL Stop: 05/04/25 19:06 Albumin Human (Albuminar-25 Ivpb) 25 gm in 100 mls @ 100 mls/hr IV QDAY MARIANO Stop: 04/07/25 19:06 Magnesium Sulfate (Magnesium Sulfate Ivpb) 4 gm in 50 mls @ 12.5 mls/hr IV X1 ONE Stop: 04/04/25 23:13 Ondansetron HCl (Ondansetron Inj 2 Mg/Ml Inj 2 Ml) 4 mg IVP Q6H PRN; Protocol PRN Reason: NAUSEA OR VOMITING Stop: 05/04/25 17:39 Oxycodone/Acetaminophen (Oxycodone/Apap 5/325 Tablet) 1 tab PO Q6H PRN PRN Reason: PAIN SCALE 4-6 (Moderate Stop: 04/09/25 17:39 Pantoprazole Sodium (Pantoprazole Inj 40 Mg Vial) 40 mg IVP BID MARIANO Stop: 05/04/25 20:59 Pharmacy Consult (Vancomycin Pharmacy To Dose 1 Each Each) 1 each IV QDAY PRN PRN Reason: PROTOCOL Stop: 05/05/25 08:59 Vitamin B Complex/Vit C/Folic Acid (Vit B12/Vit C/Fa (Nephrovite) Tablet) 1 tab PO QDAY MARIANO Stop: 05/04/25 19:29 Discontinued Medications Acetaminophen (Acetaminophen 500 Mg Tablet) 1,000 mg PO X1 ONE Stop: 04/04/25 13:47 Last Admin: 04/04/25 14:20 Dose: 1,000 mg Dextrose (Dextrose 50%-Water Inj 50 Ml Syringe) 50 ml IVP X1 ONE Stop: 04/04/25 15:54 Last Admin: 04/04/25 16:03 Dose: 50 ml Glucagon (Glucagon Inj 1 Mg Vial) 1 mg IVP X1 ONE Stop: 04/04/25 15:14 Last Admin: 04/04/25 15:18 Dose: 1 mg Glucagon (Glucagon Inj 1 Mg Vial) 1 mg IVP X1 ONE Stop: 04/04/25 15:40 Last Admin: 04/04/25 15:46 Dose: 1 mg Sodium Chloride (Ns) 2,466 mls @ 2,466 mls/hr 30 ml/kg infuse over 60 min (2466 ml) IV .Q1H ONE Stop: 04/04/25 14:35 Last Infusion: 04/04/25 14:50 Dose: Infused Piperacillin/Tazobactam/Dextrose (Zosyn) 3.375 gm in 50 mls @ 100 mls/hr IV X1 ONE Stop: 04/04/25 14:15 Last Infusion: 04/04/25 14:55 Dose: Infused Vancomycin HCl 2,000 mg/ (Sodium Chloride) 500 mls @ 120 mls/hr IV X1 ONE Stop: 04/04/25 17:59 Last Infusion: 04/04/25 19:13 Dose: Infused Dextrose/Sodium Chloride (D5-Ns) 1,000 mls @ 100 mls/hr IV .Q10H MARIANO Stop: 05/04/25 17:59 Last Admin: 04/04/25 19:13 Dose: Not Given Dextrose (D10w) 500 mls @ 50 mls/hr IV .Q10H MARIANO Stop: 05/04/25 19:11 Lidocaine HCl (Lidocaine Hcl 1% 20 Ml Vial) 20 ml INFL X1 ONE Stop: 04/04/25 17:13 Last Admin: 04/04/25 17:40 Dose: 20 ml Pantoprazole Sodium (Pantoprazole Inj 40 Mg Vial) 40 mg IVP QDAY MARIANO Stop: 04/05/25 09:00 Assessment & Plan Plan Summary:A 59-year-old male patient with past medical history of ESRD on hemodialysis MWF, hypothyroidism, HFpEF, chronic left leg ulcer, questionable bilateral venous insufficiency, history of osteomyelitis, chronic pancytopenia, presented to the ED due to generalized weakness for 3 days. Patient was upgraded to the ICU secondary to septic shock and severe hypoglycemia. [employer]EL[employer] No active problem CVS #Septic shock most likely secondary to severe UTI On presentation patient was found to have MAP on the 30s, was resuscitated with 2.4 L of fluids, 1 unit of blood, his blood pressure continued to have MAP below 65. Lactic acid 3.1, UA more than 17,000 WBCs Delayed capillary refill more than 3 seconds, warm skin. Plan: Connect patient to noninvasive cardiac monitoring, continue bolus resuscitation if fluid responsive, start the patient on Levophed with goal MAP more than 65, strict in and out, trend lactic acid every 6 hours, given 1 albumin infusion 25 g x 1. #HFpEF 55 to 60% in December 2024 #Mild aortic stenosis Patient has echo was done in December 2024 showed ejection fraction of 55 to 60%, however patient only reported using Lasix as he does not produce regular amount of urine secondary to his renal failure. Plan: Continue to monitor urine output closely, strict ins and outs Pulm No active problem GI #Diarrhea with black tarry stool #GI bleed rule out Patient reported multiple episodes of diarrhea, noticed to be black tarry stool, occult blood test in ED was negative, patient has history of antibiotic use recently. History of EGD done 2 years ago however he does not remember the results. Hemoglobin is chronically low difficult to determine if he has anemia secondary to GI bleed or secondary to his chronic pancytopenia. Plan: Stool culture, ova and parasite, C. difficile test PCR, put patient on contact precautions, pantoprazole twice daily, will monitor hemoglobin every 8 hours, repeat occult blood test. Renal/uro- #ESRD on dialysis MWF with Dr. 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 Patient was given D50W and a snack however his blood sugar continued to be in the lower side. Plan: Start the patient on hypoglycemia protocol as needed, glucagon as needed, D50 W as needed, start the patient on D10 W 50mL/h, encourage oral intake, will continue to monitor. consider starting the patient on steroid if blood pressure continue to be on the lower side and continue to have episodes of hypoglycemia. #History of hypothyroidism Noticed on last admission in January 2025 his levothyroxine was 112 mcg. Will resume. Hematology/oncology #Pancytopenia, patient was found to have recurrent episodes of blood transfusion secondary to severe anemia, low platelets, occasional leukopenia, today his CBC showed hemoglobin of 5.6, platelets of 24, WBCs of 3.0 Bone marrow biopsy and aspiration were taken in 2023 however the sample was inconclusive secondary to not enough sample. Plan: Packed RBC diffusion x 1, platelet transfusion x 1, H&H posttransfusion, CBC every 8 hours, regulation panel every morning. Will consider consulting ceo and president after stabilization. ID #[email or web address] Pending urine culture and blood culture, urinalysis showed WBC more than 17,000 Plan continue Zosyn and vancomycin as above #History of osteomyelitis of the left tibia and fibula #History of chronic venous ulcer Patient supposed to finish his IV antibiotic for osteomyelitis in January this year, his wound seems to be clean however there is mild swelling of the left leg, pending CT scan to rule out abscess Plan: Continue IV antibiotic as above, follow-up on the ESR CRP, follow-up with the lower limb CT scan, wound wound care was ordered Hospital Maintenance: FEN: Regular diet DVT ppx: SCDs, hemoglobin 5.6, pending ruling out GI bleed GI ppx: Protonix IV lines: Femoral central line, peripheral lines Servin: None Code status: Full code Dispo: Upgrade to ICU - Patient's plan and care discussed with my attending, Dr. Hugo Nelson MD Internal Medicine PGY-3.
--- NOTE | 2025-04-04 19:34 | ESHP_ITS ---
Documentation for date of: 04/04/25 [facility] History of Present Illness History of present illness: History of Present Illness: 51-year-old male with complex PMHx of ESRD on HD MWF, chronic thrombocytopenia and anemia of CKD with recurrent biweekly blood transfusions, hypothyroidism, HFpEF, chronic left leg ulcer with bilateral venous insufficiency and stasis dermatitis, presenting to ED with generalized weakness. He was in the ED several days ago for blood transfusion, did not require admission to time. Reports several days of increasingly worsening generalized weakness, beyond baseline, associated with dysuria. In addition, he reports several episodes of watery diarrhea that started a day before admission. Morning he felt exceptionally weak, reports a fall although timing is unclear, states the fall happens at night, but on reevaluation stated the fall occurred this morning. Nonetheless, morning, he decided to call EMS. On arrival, EMS noted patient was covered with urine and feces. History of black stool. He has a history of poor hygiene, lives with > 12 cats at home. Reports he is usually too tired to clean up after himself and after the cats, states he is usually covered with cat feces and urine. Additionally, he has chronic left lower extremity ulcer, currently doing self-care, noncompliance with outpatient wound care. Denies headaches, loss of consciousness, syncope, head trauma, chest pain, shortness of breath, abdominal pain, constipation. Past Medical History: * As above. Past Surgical History: * AV fistula of left upper extremity. Medications: * Pending med rec's. * Per chart review, FUROSEMIDE 40 mg, BENADRYL 25 mg, Mere-Martín daily, VELPHORO 500 mg, LEVOTHYROXINE 112 mcg Allergies: * Adhesive tape rash Family History: * Nonsignificant Social History: * Denies tobacco, alcohol or illicit drug use. ED Course: * Tmax 101.3, BP 63/38, HR 89, RR 19, on 2 L NC. * Leukopenic at 2.8, Hgb 5.2, PLT 24. * PT 12.9, INR 1.2, APTT 42.4. * Sodium 147, potassium 3.1, chloride 114, CR 3.6, GLUCOSE 30, lactic acid 3.1 > 3.2, magnesium 0.6, troponin 0.047 > 0.078, CRP 13.4, AMP 250. * UA is orange, cloudy, pH 7.5, 2+ protein, 2+ blood, leukocyte esterase positive, WBC 17K, RBC 219. * CXR showed mild heart failure. * CT abdomen showed pulmonary arterial hypertension, 10 subcentimeter bilateral pulmonary nodules, cirrhosis, splenomegaly, cholelithiasis, end-stage [place] kidneys, significant abdomen and pelvis lymphadenopathy, no pneumonia. Finding concerning for metastatic lung disease, Hodgkin and non-Hodgkin lymphoma considered by radiology, PET/CT recommended. * Lower extremity CT showed prominent cellulitis, significant left pelvis and left groin and proximal thigh lymphadenopathy, negative for soft tissue abscess or osteomyelitis. Reason for admission: On evaluation, patient appears significantly lethargic, although alert and oriented x 4. Bilateral lower extremity short warmth, erythema, and chronic venous stasis with issues of large left lower extremity ulcer expanding the entire lui. Femoral central line was initiated. Subsequently he became hypotensive, with MAP in the 40s. Additionally, fingerstick GLUCOSE showed hypoglycemia of 20. Additionally, following Servin catheter insertion, large amount of purulent fluid was noted. We consulted ICU team who accepted the patient for pressor support and management of shock as well as hypoglycemia protocol. Review of Systems Review of Systems Systems Reviewed: All systems reviewed, normal except as documented Exam Vital Signs Temp Pulse Resp BP Pulse Ox O2 Del Method 98.6 F 76 18 93/44 L 95 Room Air 04/04/25 19:25 04/04/25 19:25 04/04/25 19:25 04/04/25 19:25 04/04/25 19:25 04/04/25 19:13 Narrative Exam GENERAL * Disheveled, ill-appearing male, NAD, AOA x 3 HEENT * NCAT.?LORENE. Oral mucosa is moist. Patent Nares NECK * Supple, nontender, no JVD. CHEST * Tachycardic, regular rhythm, no m/g/r * CTAB, no w/r/r, symmetrical expansion. ABDOMEN * Soft, flat, nontender. No guarding/rebound tenderness/masses. * Bowel sounds presents EXTREMITIES * Bilateral lower extremity edema, possibly 2+. * Chronic venous stasis dermatitis with warmth, and diffuse erythema bilaterally. * Large left lower extremity ulcer. SKIN * Warm and dry, no jaundice/rashes. * Left upper extremity fistula intact without signs of infection. NEUROMUSCULAR * Moves all 4 extremities well, with full ROM and good CSM. * MOROCHO x4, CN II-XII grossly intact. * No focal neurologic deficits. PSYCHIATRY * Normal mood and affect, cooperative, no SI or HI or hallucinations. Results: Labs 04/05/25 09:16 04/05/25 05:14 Labs: Short CBC 04/04/25 Range/Units 13:51 WBC 3.0 L (3.8-10.6) Thou/mm3 Hgb 5.2 L* (13.5-16.0) g/dL Hct 15.2 L* (41.0-53.0) % Plt Count 24 L* D (140-440) Thou/mm3 BMP 04/04/25 04/04/25 13:51 15:31 Sodium 147 H 139 Potassium 3.1 L 4.1 D Chloride 114 H 100 Carbon Dioxide 20.5 28.8 BUN 17 26 H Creatinine 3.6 H D 5.4 H* D Glucose 30 L* 55 L D Calcium 5.2 L* 7.4 L D Cardiac Enzymes 04/04/25 04/04/25 Range/Units 13:51 18:30 Troponin I 0.046 H* 0.078 H* (0.0-0.045) ng/mL Liver Function 04/04/25 04/04/25 Range/Units 13:51 15:31 Total Bilirubin 0.5 0.8 (0.3-1.2) mg/dL AST 22 34 (0-34) U/L ALT < 7 L < 7 L (10-49) U/L Alkaline Phosphatase 52 77 D (46-116) U/L Albumin 1.7 L 2.5 L D (3.5-5.0) gm/dL Urine 04/04/25 Range/Units 14:04 Urine Color Edwards A (Lt Yel-Yel) Urine Clarity Cloudy A (Clear/Hazy) Urine pH 7.5 H (5.0-7.0) Ur Specific [place] 1.010 (1.001-1.035) Urine Protein 2+ A (Neg - Trace) Urine Glucose (UA) Negative (Negative) Quality Measures Quality Measures none Medications Home Medications and Allergies Home Medications ?Medication ?Instructions ?Recorded ?Confirmed ?Type diphenhydramine HCl 25 mg capsule 25 mg PO TID PRN Itc adrian 08/20/22 04/05/25 History (Benadryl) vitamin B comp no.3-folic acid 1 1 tab PO QDAY 2 04/05/25 History mg-vit C 60 mg-biotin 300 mcg tablet (Mere-Martín Rx) sucroferric oxyhydroxide 500 mg 500 mg PO QID 10/03/22 04/05/25 History chewable tablet (Velphoro) carvedilol 12.5 mg tablet 12.5 mg PO BID 08/04/2303/21 History Held on 02/11/25. Instructions: Resume on 02/17/25. Hold until follow up with primary care physician furosemide 40 mg tablet 40 mg PO QDAY 08/04/2304/05 History levothyroxine 112 mcg tablet 112 mcg PO ACBR 02/10/25 04/05/25 History Allergies Allergy/AdvReac Type Severity Reaction Status Date / Time adhesive tape Allergy Severe Rash Verified 04/04/25 13:15 vancomycin AdvReac Severe Rash Verified 04/05/25 07:58 Visit Medications Acetaminophen (Acetaminophen 325 Mg Tablet) 650 mg PO Q6H PRN PRN Reason: PAIN SCALE 1-3 (mild Stop: 05/04/25 17:39 Acetaminophen (Acetaminophen 325 Mg Tablet) 650 mg PO Q6H PRN PRN Reason: Fever >100.4 Stop: 05/04/25 17:39 Hydrocodone Bitart/Acetaminophen (Hydrocodone/Apap 10/325 Tab) 1 tab PO Q4HR PRN PRN Reason: PAIN SCALE 7-10 (Severe Stop: 04/09/25 17:39 Dextrose (Dextrose 50%-Water Inj 50 Ml Syringe) 25 ml IV Q15MIN PRN PRN Reason: BG 50-70 responsive npo pt Stop: 05/04/25 19:17 Dextrose (Dextrose 50%-Water Inj 50 Ml Syringe) 50 ml IV Q15MIN PRN PRN Reason: BG <50 OR BG <70 & pt unresponsive Stop: 05/04/25 19:17 Glucagon (Glucagon Inj 1 Mg Vial) 1 mg IM Q15MIN PRN PRN Reason: BG <70, and no IV access Piperacillin/Tazobactam/Dextrose (Zosyn) 3.375 gm in 50 mls @ 12.5 mls/hr IV Q8HR MARIANO Stop: 04/11/25 21:59 Dextrose (D10w 1000 Ml) 1,000 mls @ 50 mls/hr IV .Q20H MARIANO Stop: 04/05/25 14:01 Last Admin: 04/04/25 18:32 Dose: 50 mls/hr Norepinephrine Bitartrate (Levophed In Ns 16mg/250ml) 16 mg in 250 mls @ 6.094 mls/hr IV .Q24H PRN; Protocol PRN Reason: PER PROTOCOL Stop: 05/04/25 19:06 Albumin Human (Albuminar-25 Ivpb) 25 gm in 100 mls @ 100 mls/hr IV QDAY MARIANO Stop: 04/07/25 19:06 Magnesium Sulfate (Magnesium Sulfate Ivpb) 4 gm in 50 mls @ 12.5 mls/hr IV X1 ONE Stop: 04/04/25 23:13 Ondansetron HCl (Ondansetron Inj 2 Mg/Ml Inj 2 Ml) 4 mg IVP Q6H PRN; Protocol PRN Reason: NAUSEA OR VOMITING Stop: 05/04/25 17:39 Oxycodone/Acetaminophen (Oxycodone/Apap 5/325 Tablet) 1 tab PO Q6H PRN PRN Reason: PAIN SCALE 4-6 (Moderate Stop: 04/09/25 17:39 Pantoprazole Sodium (Pantoprazole Inj 40 Mg Vial) 40 mg IVP BID [facility] Stop: 05/04/25 20:59 Pharmacy Consult (Vancomycin Pharmacy To Dose 1 Each Each) 1 each IV QDAY PRN PRN Reason: PROTOCOL Stop: 05/05/25 08:59 Vitamin B Complex/Vit C/Folic Acid (Vit B12/Vit C/Fa (Nephrovite) Tablet) 1 tab PO QDAY [facility] Stop: 05/04/25 19:29 Discontinued Medications Acetaminophen (Acetaminophen 500 Mg Tablet) 1,000 mg PO X1 ONE Stop: 04/04/25 13:47 Last Admin: 04/04/25 14:20 Dose: 1,000 mg Dextrose (Dextrose 50%-Water Inj 50 Ml Syringe) 50 ml IVP X1 ONE Stop: 04/04/25 15:54 Last Admin: 04/04/25 16:03 Dose: 50 ml Glucagon (Glucagon Inj 1 Mg Vial) 1 mg IVP X1 ONE Stop: 04/04/25 15:14 Last Admin: 04/04/25 15:18 Dose: 1 mg Glucagon (Glucagon Inj 1 Mg Vial) 1 mg IVP X1 ONE Stop: 04/04/25 15:40 Last Admin: 04/04/25 15:46 Dose: 1 mg Sodium Chloride (Ns) 2,466 mls @ 2,466 mls/hr 30 ml/kg infuse over 60 min (2466 ml) IV .Q1H ONE Stop: 04/04/25 14:35 Last Infusion: 04/04/25 14:50 Dose: Infused Piperacillin/Tazobactam/Dextrose (Zosyn) 3.375 gm in 50 mls @ 100 mls/hr IV X1 ONE Stop: 04/04/25 14:15 Last Infusion: 04/04/25 14:55 Dose: Infused Vancomycin HCl 2,000 mg/ (Sodium Chloride) 500 mls @ 120 mls/hr IV X1 ONE Stop: 04/04/25 17:59 Last Infusion: 04/04/25 19:13 Dose: Infused Magnesium Sulfate (Magnesium Sulfate Ivpb) 4 gm in 50 mls @ 12.5 mls/hr IV X1 ONE Stop: 04/04/25 19:29 Last Admin: 04/04/25 16:16 Dose: 12.5 mls/hr Dextrose/Sodium Chloride (D5-Ns) 1,000 mls @ 100 mls/hr IV .Q10H MARIANO Stop: 05/04/25 17:59 Last Admin: 04/04/25 19:13 Dose: Not Given Dextrose (D10w) 500 mls @ 50 mls/hr IV .Q10H MARIANO Stop: 05/04/25 19:11 Lidocaine HCl (Lidocaine Hcl 1% 20 Ml Vial) 20 ml INFL X1 ONE Stop: 04/04/25 17:13 Last Admin: 04/04/25 17:40 Dose: 20 ml Pantoprazole Sodium (Pantoprazole Inj 40 Mg Vial) 40 mg IVP QDAY MARIANO Stop: 04/05/25 09:00 Assessment & Plan Plan 51-year-old male with complex PMHx of ESRD on HD MWF, chronic thrombocytopenia and anemia of CKD with recurrent biweekly blood transfusions, hypothyroidism, HFpEF, chronic left leg ulcer with bilateral venous insufficiency and stasis dermatitis, presenting to ED with generalized weakness admitted for shock in settings of sepsis, and severe anemia. Combined septic and hypovolemic shock Significant UTI Acute on chronic anemia and thrombocytopenia Neutropenia Significant metabolic abnormalities Lactic acidosis settings of sepsis and anemia HFpEF 55-60% Diarrhea, likely GI bleed given history above ESRD on HD MWF Bilateral lower extremity cellulitis Large left lower extremity ulcer Osteomyelitis of left lower extremity Possible metastatic neoplasm ED initiated large blood transfusion protocol. ANTIBIOTICS were initiated. However given rapid decline of MAP and significant hyperglycemia, ICU team was consulted for pressor support and hypoglycemia protocol and had accepted the patient for further management. Case was discussed with attending physician. Sherine Hinds DO PGY II This document was transcribed using voice recognition technology. Minor inaccuracies may be present. Attending Provider Attestation/Addendum I, Kimberly Lauren DO, attest that I was physically present for the [place] portions of the service and evaluated the patient with the resident and I reviewed and discussed the case with the resident and agree with the resident's findings and plans of care as documented above Patient is a 51-year-old male with past history of end-stage renal disease on hemodialysis on MWF, chronic anemia, thrombocytopenia, hypothyroid, HFpEF, chronic left leg ulcer and bilateral venous insufficiency who presented to the ED due to generalized weakness that started about 4 days ago. Patient subsequently came to the ED after he had fallen off from the bed and was unable to get up due to his pain in his left leg secondary to his ulcer. Patient had been seen in the wound clinic in the past, but currently takes care of his wound at home on his own. He does have several cats at home which and had been previously diagnosed with Bartonella Plasencia. The wound appears to be beefy red, with no purulence. Likely due to arterial ulcer. Patient also has a history of requiring frequent blood transfusions. Despite being on dialysis, patient states that he is able to produce urine. He does endorse having some dysuria. A Servin catheter was placed in the ED and urine is noted to be white and opaque. Patient denies hitting his head and states that the bed at home is very low to the ground. However, he has been having poor p.o. intake for the past 4 days due to his generalized weakness and feeling generally ill. He endorses having fevers, chills, occasional shortness of breath, diarrhea and vomiting. He denies any chest pain. Upon evaluation in the ED, patient was noted to have a temperature of 101.3 on presentation and blood pressure of 63/38 and leukopenic at 2.8. He was also noted to have a hemoglobin of 5.2 with platelet count of 24. Patient does have some scattered petechiae noted on his skin due to thrombocytopenia. He denies noting any blood in his stool or his urine. He is currently receiving 1 unit of PRBCs in the ED, but remains hypotensive. Blood glucose was also noted to be 20. Patient was able to have normal conversation despite having low blood glucose. Blood pressures had initially improved after patient received 2-1/2 L of IV fluids. However, patient's systolic blood pressure continued to fluctuate between 60s to 90s. Case discussed discussed with assembler faucets who accepted the patient to the ICU due to concern for septic shock. Lactic acid was also noted to be 3.1. Patient was started on vancomycin and Zosyn due to concern for septic shock. Will follow-up blood and urine cultures. Patient is otherwise to be transferred to the ICU for pressor support. Case was also discussed with patient's primary care who stated that the patient may have a glucagonoma as this is his third episode of being admitted with hypoglycemia. Will place patient on D10 drip and monitor blood glucose closely. Per ER team, patient was very disheveled and unkempt when he first arrived to the ED. Patient may not be able to care for himself at home. Will need social media developer consultation.
[2025-04-04] MEDS: DEXTROSE 50%-WATER INJ 50 ML SYRINGE 25 ML IV ×2 (19:43→21:00)
[2025-04-04] MEDS: ALBUMIN HUMAN 25% IVPB 25 GM/100 ML BTL IV (19:56)
[2025-04-04] MEDS: DEXTROSE 50%-WATER INJ 50 ML SYRINGE IV (20:05)
[2025-04-04 21:04] LABS: C-Reactive Protein 13.4 mg/dL (0.0-0.9)
[2025-04-04] MEDS: Norepinephrine/NS 16mg/250ml 16 MG/250 ML BAG 6.094 MG IV (21:10)
[2025-04-04 21:45] LABS: Reflex Lactate? Y
[2025-04-04] MEDS: VIT B12/Vit C/FA (Nephrovite) TABLET 1 TAB PO (22:05)
[2025-04-04 23:11] LABS: Lactate (Lactic Acid) 1.7 mMol/L (0.4-2.0)
[2025-04-05] VITALS (101 sets, daily range): BP systolic 81–133; BP diastolic 41–79; PULSE 59–85; RESP 3–34; TEMP 36.8–37.1; O2SAT 88–100; BMI 36.8
[2025-04-05 00:13] LABS: Troponin I 0.089 ng/mL (0.0-0.045)
[2025-04-05 02:03] LABS: Basophils # (Auto) 0.0 Thou/mm3 (0.0-0.2); Basophils % (Auto) 0 % (0-2.5); Eosinophils # (Auto) 0.3 Thou/mm3 (0.0-0.5); Eosinophils % (Auto) 6 % (0-10); Hematocrit 25.3 % (41.0-53.0); Immature Granulocytes Auto 0.02 Thou/mm3 (0.00-0.00); Lymphocytes # (Auto) 0.3 Thou/mm3 (1.0-4.8); Lymphocytes % (Auto) 6 % (10-50); Mean Corpuscular HGB Conc 34.8 g/dl (31.0-37.0); Mean Corpuscular Hemoglobin 28.5 pg (25.0-35.0); Mean Corpuscular Volume 82 fL (80-100); Monocytes # (Auto) 0.2 Thou/mm3 (0.0-0.8); Monocytes % (Auto) 4 % (0-12); Neutrophils # (Auto) 3.6 Thou/mm3 (1.8-7.7); Neutrophils % (Auto) 83 % (37-80); Nucleated Red Blood Cell # 0.00 Thou/mm3 (0.00-0.00); Nucleated Red Blood Cell % 0 /100 WBC (0); RDW Standard Deviation 44.4 fL (35.1-43.9); Red Blood Count 3.09 Miln/mm3 (4.50-5.90); White Blood Count 4.4 Thou/mm3 (3.8-10.6)
[2025-04-05 02:08] LABS: Hemoglobin 8.8 g/dL (13.5-16.0)
[2025-04-05 02:09] LABS: Platelet Count 24 Thou/mm3 (140-440)
[2025-04-05 02:10] LABS: Slide Review Platelets confirmed
[2025-04-05 03:05] LABS: Glucose 100 mg/dL (74-106)
[2025-04-05] MEDS: LEVOTHYROXINE SODIUM 112 MCG TABLET PO (05:28)
[2025-04-05] MEDS: PIPER/TAZO 3.375 GM PREMIX 3.375 GM/50 ML BAG IV ×3 (05:29→20:49)
[2025-04-05 05:49] LABS: Lactate (Lactic Acid) 2.2 mMol/L (0.4-2.0)
[2025-04-05 06:15] LABS: Basophils # (Auto) 0.0 Thou/mm3 (0.0-0.2); Basophils % (Auto) 0 % (0-2.5); Eosinophils # (Auto) 0.3 Thou/mm3 (0.0-0.5); Eosinophils % (Auto) 7 % (0-10); Hematocrit 25.4 % (41.0-53.0); Hemoglobin 8.9 g/dL (13.5-16.0); Immature Granulocytes Auto 0.02 Thou/mm3 (0.00-0.00); Lymphocytes # (Auto) 0.3 Thou/mm3 (1.0-4.8); Lymphocytes % (Auto) 6 % (10-50); Mean Corpuscular HGB Conc 35.0 g/dl (31.0-37.0); Mean Corpuscular Hemoglobin 29.0 pg (25.0-35.0); Mean Corpuscular Volume 83 fL (80-100); Monocytes # (Auto) 0.2 Thou/mm3 (0.0-0.8); Monocytes % (Auto) 5 % (0-12); Neutrophils # (Auto) 4.1 Thou/mm3 (1.8-7.7); Neutrophils % (Auto) 82 % (37-80); Nucleated Red Blood Cell # 0.00 Thou/mm3 (0.00-0.00); Nucleated Red Blood Cell % 0 /100 WBC (0); RDW Standard Deviation 44.6 fL (35.1-43.9); Red Blood Count 3.07 Miln/mm3 (4.50-5.90); White Blood Count 5.1 Thou/mm3 (3.8-10.6)
[2025-04-05 06:22] LABS: Platelet Count 33 Thou/mm3 (140-440)
[2025-04-05 06:43] LABS: Alanine Aminotransferase 9 U/L (10-49); Albumin, Serum 2.6 gm/dL (3.5-5.0); Albumin/Globulin Ratio 0.8 (1.2-2.2); Alkaline Phosphatase 76 U/L (46-116); Anion Gap 11 (7-16); Aspartate Amino Transferase 44 U/L (0-34); BUN/Creatinine Ratio 5 Ratio (12-20); Bilirubin,Total 0.8 mg/dL (0.3-1.2); Blood Urea Nitrogen 30 mg/dL (9-23); Calcium 8.1 mg/dL (8.3-10.6); Calcium (Corrected) 9.2 mg/dL (8.5-10.1); Carbon Dioxide 27.6 mMol/L (20.0-31.0); Chloride 100 mMol/L (98-107); Creatinine (Component) 5.8 mg/dL (0.6-1.3); Estimated Creatinine Clearance 19.9 mL/min (>60); Globulin 3.1 gm/dL (2.3-3.5); Glucose 106 mg/dL (74-106); Magnesium 2.0 mg/dL (1.6-2.6); Osmolality,Calculated 283 (275-295); Phosphorous 3.2 mg/dL (2.4-5.1); Potassium 3.7 mMol/L (3.4-5.1); Sodium 139 mMol/L (136-145); Total Protein 5.7 gm/dL (5.7-8.2); eGFR 11 See Note
[2025-04-05 06:52] LABS: INR 1.5 (0.9-1.3); Partial Thromboplastin Time 46.1 Seconds (22.0-36.0); Prothrombin Time 16.1 Seconds (9.0-12.2)
[2025-04-05 08:28] LABS: Slide Review Platelets confirmed
[2025-04-05 08:44] LABS: Reflex Lactate? Y
[2025-04-05] MEDS: VIT B12/Vit C/FA (Nephrovite) TABLET 1 TAB PO (08:56)
[2025-04-05] MEDS: ALBUMIN HUMAN 25% IVPB 25 GM/100 ML BTL IV (08:56)
[2025-04-05 09:34] LABS: Lactate (Lactic Acid) 2.8 mMol/L (0.4-2.0)
[2025-04-05 09:38] LABS: Hematocrit 25.7 % (41.0-53.0); Hemoglobin 9.0 g/dL (13.5-16.0)
--- NOTE | 2025-04-05 10:54 | ESCONSULT_ITS ---
HPI Data of Consult Consult date: 04/05/25 Requesting Physician: Rosaura Arias MD Admitting Provider: Kimberly Lauren DO Attending Provider: Rosaura Arias MD Primary Care Provider: Shad Cotton MD Consult Narrative Reason for consult: ESRD on HD History of present illness: Sincere Weaver is 59 yr male with PMH of ESRD on HD MWF, chronic thrombocytopenia and anemia of CKD with recurrent biweekly blood transfusions, hypothyroidism, HFpEF, chronic left leg ulcer with bilateral venous insufficiency and stasis dermatitis who presented to ED on 04/04/25 due generalized weakness. He was in the ED several days ago for blood transfusion, he was also found to have low glucose levels around 20-30 when in the ED. Patient was eventually upgraded to ICU due to low MAP in the 40s. Currently on pressor support and hypoglycemia protocol. CT abdomen pelvis showed pulmonary nodules, cirrhosis, splenomegaly LAD. There is concern for cancer. Patient has also lost over 100 pounds in the past year. HD access site through left upper extremity AV fistula. Last session completed this past Thursday. BP soft 89/41. Hemoglobin 9.0, MCV 83, platelets 33, sodium 139, potassium 3.7, BUN 30, creatinine 5.8, GFR 11, elevated lactic acid 2.8. UA positive for UTI. He was started on vancomycin/Zosyn. 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 Patient denies any chest pain, shortness of breath, headache, nausea or vomiting. Does have some lower extremity pain due to his dermatitis and ulcer. cc:: cc: Rosaura Arias MD Review of Systems Review of Systems Narrative Review of Systems: CONSTITUTIONAL: Patient denies any fever, chills. Complaining of fatigue. Patient with weight loss HEENT: Denies any visual disturbances or hearing problems. CARDIOVASCULAR: Patient denies any chest pain, shortness of breath. ++ swelling in the lower extremities. PULMONARY: Patient denies any shortness of breath, cough. GASTROINTESTINAL: Patient denies any abdominal pain, constipation, nausea, vomiting, diarrhea. GENITOURINARY: Patient denies any urinary symptoms of burning or frequency or hematuria, denies any form in the urine. SKIN: Significant wounds on the left leg, stasis dermatitis noted MUSCULOSKELETAL: Complaining of gait imbalance NEUROLOGICAL: Denies any neurological problems of strokes, seizures or confusion. Denies any memory problems. PSYCHIATRIC: Denies any depression or anxiety. + Anemia LYMPHATICS : No lymphadenopathy Past Medical History Past Medical History NEUROLOGIC: Positive Neurological Disorders and Peripheral Neuropathy; Negative Cerebrovascular Accident, Transient Ischemic Attacks (TIA), Dementia, Alzheimer's Disease, Parkinson's Disease, Brain Tumor, Meningitis, Seizures, Epilepsy, Multiple Sclerosis, Cerebral Palsy, Amyotrophic Lateral Sclerosis (ALS/Carmela Gehrig's), Guillain-Lacon Syndrome, Spina Bifida, Paralysis, Fermin's Palsy, Subdural Hematoma, Migraine, Head Trauma, Spinal Cord Injury or Traumatic Brain Injury CARDIAC: Positive Hypertension; Negative Cardiac Disorders, Myocardial Infarction, Cardiac Arrhythmia, Atrial Fibrillation, Angina, Heart Murmur, Coronary Artery Disease, Atherosclerotic Heart Disease, Peripheral Vascular Disease, Hypercholesterolemia, Aneurysm, Congestive Heart Failure, Congenital Heart Disease, Valvular Heart Disease, Rheumatic Fever, Cardiomyopathy, Pericarditis, Cellulitis, Deep Vein Thrombosis, Hypotension or Varicose Veins RESPIRATORY: Positive Sleep Apnea; Negative Chronic Obstructive Pulmonary Disease (COPD), Asthma, Bronchitis, Emphysema, Pneumonia, Pulmonary Fibrosis, Cystic Fibrosis, Tuberculosis, Pulmonary Embolism or Pulmonary Edema GASTROINTESTINAL: Positive Gastrointestinal Disorders, Gastrointestinal Bleed, Ulcer and Obesity; Negative Hepatitis, Cirrhosis, Pancreatitis, Celiac Disease, Gall Bladder Disease, Esophageal Varices, Kc's Esophagus, Colitis, Ulcerative Colitis, Diverticulitis, Diverticulosis, Colorectal Cancer, Irritable Bowel, Crohn's Disease, Obstructive Bowel, Hiatal Hernia, Hemorrhoids or Gastroesophageal Reflux Disease GENITOURINARY: Positive Genitourinary Disorders, Renal Disease and Dialysis (M, W, F); Negative Kidney Stones, Polycystic Kidney Disease, Neurogenic Bladder, Inguinal Hernia, Prostate Cancer or Benign Prostatic Hyperplasia REPRODUCTIVE: Negative Breast Cancer, Genital Herpes, Gonorrhea, Syphilis or Testicular Cancer MUSCULOSKELETAL: Negative Musculoskeletal Disorders, Muscular Dystrophy, Myasthenia Gravis, Marfan's Syndrome, Bone Cancer, Arthritis, Rheumatoid Arthritis, Osteoporosis, Degenerative Disk Disease, Gout, Scoliosis, Carpal Tunnel Syndrome, Fibromyalgia, Fractures, Degenerative Joint Disease, Osteomyelitis or Poliovirus ENT: Negative Cataracts, Glaucoma, Blind, Retinal Detachment, Macular Degeneration, Ear Infection, Deafness, Head Trauma or Eye Prosthesis ENDOCRINE: Positive Endocrine Disorders and Hypothyroidism; Negative Diabetes Mellitus Type 1, Diabetes Mellitus Type 2, Hypoglycemia, Óscar's Syndrome, Oakland's Disease, Hyperthyroidism, Parathyroid Disease, Pituitary Disease, Systemic Lupus Erythematosus, Syndrome of Inappropriate Antidiuretic Hormone (SIADH), Adrenal Disease or Graves' Disease HEMATOLOGIC: Positive Blood Disorders and Anemia; Negative Leukemia, Hemophilia, Thalassemia, Sickle Cell Disease or Clotting Problems PSYCHO/SOCIAL: Positive Depression and Anxiety; Negative Psychiatric Problems, Schizophrenia, Recreational Drug Use, Bipolar Disorder, Behavior Problems, Self-Mutilation, Attention Deficit Disorder, Attention Deficit Hyperactivity Disorder, Depression, Post Traumatic Stress Disorder or Eating Disorder OTHER HISTORY: Positive Blood Transfusions and Chicken Pox; Negative Hospitalization, Autoimmune Disease, Down Syndrome, Autism, Developmental Delay, Shingles, Falls, Blood Transfusion Reaction, Anesthesia Reactions, Organ Transplant, Chemotherapy, Radiation Therapy, Hyperbaric Therapy, MRSA, VRSA, Vancomycin-Resistant Enterococci, Human Immunodeficiency Virus (HIV), Measles, Mumps, Rubella (Slovenian Measles), Pertussis, Clostridium Difficile, Cancer, Breast Cancer, Cervical Cancer, Colorectal Cancer, Lung Cancer, Ovarian Cancer, Prostate Cancer or Testicular Cancer Family History FAMILY HISTORY: Positive Family Psychiatric Problems and Family Respiratory Disorders; Negative Family Cardiac Disorders, Family Gastrointestinal Problems, Family Cancer, Family Surgery or Family Anesthesia Reaction Surgical History SURGICAL: Positive Vascular Surgery and Tonsillectomy; Negative Cardiac Surgery, Open Heart Surgery, Coronary Artery Bypass Graft, Valve Replacement, Coronary Stent, Cardiac Catheterization, Pacemaker, Angiogram, Auto Implanted Cardiovert Defib, Carotid Endarterectomy, Endocrine Surgery, Thyroidectomy, Ear Surgery, Tympanostomy Tube, Eye Surgery, Nose Surgery, Oral Surgery, Adenoidectomy, Cochlear Implant, Corneal Transplant, Throat Surgery, Abdominal Surgery, Tracheostomy, Gastric Bypass Surgery, Gastrostomy, Bowel Surgery, Nephrectomy, Transurethral Resection, Joint Replacement, Amputation, Open Reduction Internal Fixation, Arthroscopy, Neurologic Surgery, Brain Shunt, Vasectomy or Organ Transplant Social History SMOKING STATUS: Never smoker SECOND HAND EXPOSURE: No SUBSTANCE USE: does not use Exam Vital Signs Temp Pulse Resp BP Pulse Ox O2 Del Method O2 Flow Rate 98.3 F 65 15 89/41 L 100 Nasal Cannula 2 04/05/25 08:00 04/05/25 08:45 04/05/25 08:45 04/05/25 08:45 04/05/25 08:45 04/05/25 08:00 04/05/25 08:00 Narrative Exam General: middle age male, unkempt, No acute distress, cooperative HEENT: NCAT, No JVD noted. Mucosa moist. Pupils are equal and reactive to light bilaterally Cardiovascular: Normal S1 and S2. Regular rate and rhythm. Respiratory: Lungs are clear to auscultation bilaterally. No wheezing or crackles heard. Abdomen: Soft, nontender, not distended, normal bowel sounds. : [place] in place Skin: Warm to touch, dry, no rashes noted, Large left lower extremity ulcer, AV fistula ++ Musculoskeletal: No gross injuries. Able to move all 4 extremities. B/L LE 2+ pitting edema, Chronic venous stasis dermatitis with warmth, and diffuse erythema bilaterally. Neuro: Alert and oriented x3. No focal neuro deficits. Psych: Normal affect and mood Results Labs 04/05/25 09:16 04/05/25 05:14 Labs: Short CBC 04/04/25 04/05/25 04/05/25 Range/Units 13:51 01:50 05:14 WBC 3.0 L 4.4 D 5.1 (3.8-10.6) Thou/mm3 Hgb 5.2 L* 8.8 L D 8.9 L (13.5-16.0) g/dL Hct 15.2 L* 25.3 L D 25.4 L (41.0-53.0) % Plt Count 24 L* D 24 L* 33 L D (140-440) Thou/mm3 04/05/25 Range/Units 09:16 WBC (3.8-10.6) Thou/mm3 Hgb 9.0 L (13.5-16.0) g/dL Hct 25.7 L (41.0-53.0) % Plt Count (140-440) Thou/mm3 [facility] 04/04/25 04/04/25 04/05/25 13:51 15:31 01:50 Sodium 147 H 139 Potassium 3.1 L 4.1 D Chloride 114 H 100 Carbon Dioxide 20.5 28.8 BUN 17 26 H Creatinine 3.6 H D 5.4 H* D Glucose 30 L* 55 L D 100 D Calcium 5.2 L* 7.4 L D 04/05/25 05:14 Sodium 139 Potassium 3.7 Chloride 100 Carbon Dioxide 27.6 BUN 30 H Creatinine 5.8 H* Glucose 106 Calcium 8.1 L Cardiac Enzymes 04/04/25 04/04/25 04/04/25 Range/Units 13:51 18:30 22:54 Troponin I 0.046 H* 0.078 H* 0.089 H* (0.0-0.045) ng/mL Liver Function 04/04/25 04/04/25 04/05/25 Range/Units 13:51 15:31 05:14 Total Bilirubin 0.5 0.8 0.8 (0.3-1.2) mg/dL AST 22 34 44 H (0-34) U/L ALT < 7 L < 7 L 9 L (10-49) U/L Alkaline Phosphatase 52 77 D 76 (46-116) U/L Albumin 1.7 L 2.5 L D 2.6 L (3.5-5.0) gm/dL Urine 04/04/25 Range/Units 14:04 Urine Color [place] A (Lt Yel-Yel) Urine Clarity Cloudy A (Clear/Hazy) Urine pH 7.5 H (5.0-7.0) Ur Specific [place] 1.010 (1.001-1.035) Urine Protein 2+ A (Neg - Trace) Urine Glucose (UA) Negative (Negative) Quality Measures Quality Measures none Medications Home Medications and Allergies Home Medications ?Medication ?Instructions ?Recorded ?Confirmed ?Type diphenhydramine HCl 25 mg capsule 25 mg PO TID PRN Itc adrian 08/20/22 04/05/25 History (Benadryl) vitamin B comp no.3-folic acid 1 1 tab PO QDAY 2 04/05/25 History mg-vit C 60 mg-biotin 300 mcg tablet (Mere-[facility] Rx) sucroferric oxyhydroxide 500 mg 500 mg PO QID 10/03/22 04/05/25 History chewable tablet (Velphoro) carvedilol 12.5 mg tablet 12.5 mg PO BID 08/04/2303/21 History Held on 02/11/25. Instructions: Resume on 02/17/25. Hold until follow up with primary care physician furosemide 40 mg tablet 40 mg PO QDAY 08/04/2304/05 History levothyroxine 112 mcg tablet 112 mcg PO ACBR 02/10/25 04/05/25 History Allergies Allergy/AdvReac Type Severity Reaction Status Date / Time adhesive tape Allergy Severe Rash Verified 04/04/25 13:15 vancomycin AdvReac Severe Rash Verified 04/05/25 07:58 Visit Medications Acetaminophen (Acetaminophen 325 Mg Tablet) 650 mg PO Q6H PRN PRN Reason: PAIN SCALE 1-3 (mild Stop: 05/04/25 17:39 Acetaminophen (Acetaminophen 325 Mg Tablet) 650 mg PO Q6H PRN PRN Reason: Fever >100.4 Stop: 05/04/25 17:39 Hydrocodone Bitart/Acetaminophen (Hydrocodone/Apap 10/325 Tab) 1 tab PO Q4HR PRN PRN Reason: PAIN SCALE 7-10 (Severe Stop: 04/09/25 17:39 Dextrose (Dextrose 50%-Water Inj 50 Ml Syringe) 25 ml IV Q15MIN PRN PRN Reason: BG 50-70 responsive npo pt Stop: 05/04/25 19:17 Last Admin: 04/04/25 21:00 Dose: 25 ml Dextrose (Dextrose 50%-Water Inj 50 Ml Syringe) 50 ml IV Q15MIN PRN PRN Reason: BG <50 OR BG <70 & pt unresponsive Stop: 05/04/25 19:17 Last Admin: 04/04/25 20:05 Dose: 50 ml Glucagon (Glucagon Inj 1 Mg Vial) 1 mg IM Q15MIN PRN PRN Reason: BG <70, and no IV access Hydrocortisone Sodium Succinate (Hydrocortisone Sod Succ Inj 100 Mg Vial) 50 mg IV Q6HR MARIANO Stop: 05/05/25 16:00 Piperacillin/Tazobactam/Dextrose (Zosyn) 3.375 gm in 50 mls @ 12.5 mls/hr IV Q8HR MARIANO Stop: 04/11/25 21:59 Last Admin: 04/05/25 05:29 Dose: 12.5 mls/hr Dextrose (D10w 1000 Ml) 1,000 mls @ 50 mls/hr IV .Q20H MARIANO Stop: 04/05/25 14:01 Last Admin: 04/04/25 18:32 Dose: 50 mls/hr Norepinephrine Bitartrate (Levophed In Ns 16mg/250ml) 16 mg in 250 mls @ 6.094 mls/hr IV .Q24H PRN; Protocol PRN Reason: PER PROTOCOL Stop: 05/04/25 19:06 Last Titration: 04/05/25 06:00 Dose: 0.03 mcg/kg/min, 3.656 mls/hr Levothyroxine Sodium (Levothyroxine Sodium 112 Mcg Tablet) 112 mcg PO ACBR [facility] Stop: 05/05/25 05:59 Last Admin: 04/05/25 05:28 Dose: 112 mcg Midodrine (Midodrine 5 Mg Tablet) 10 mg PO TID [facility] Stop: 05/05/25 09:29 Ondansetron HCl (Ondansetron Inj 2 Mg/Ml Inj 2 Ml) 4 mg IVP Q6H PRN; Protocol PRN Reason: NAUSEA OR VOMITING Stop: 05/04/25 17:39 Oxycodone/Acetaminophen (Oxycodone/Apap 5/325 Tablet) 1 tab PO Q6H PRN PRN Reason: PAIN SCALE 4-6 (Moderate Stop: 04/09/25 17:39 Last Admin: 04/05/25 03:12 Dose: 1 tab Pantoprazole Sodium (Pantoprazole Inj 40 Mg Vial) 40 mg IVP BID [facility] Stop: 05/04/25 20:59 Last Admin: 04/05/25 08:56 Dose: 40 mg Vitamin B Complex/Vit C/Folic Acid (Vit B12/Vit C/Fa (Nephrovite) Tablet) 1 tab PO QDAY [facility] Stop: 05/04/25 19:29 Last Admin: 04/05/25 08:56 Dose: 1 tab Discontinued Medications Acetaminophen (Acetaminophen 500 Mg Tablet) 1,000 mg PO X1 ONE Stop: 04/04/25 13:47 Last Admin: 04/04/25 14:20 Dose: 1,000 mg Dextrose (Dextrose 50%-Water Inj 50 Ml Syringe) 50 ml IVP X1 ONE Stop: 04/04/25 15:54 Last Admin: 04/04/25 16:03 Dose: 50 ml Glucagon (Glucagon Inj 1 Mg Vial) 1 mg IVP X1 ONE Stop: 04/04/25 15:14 Last Admin: 04/04/25 15:18 Dose: 1 mg Glucagon (Glucagon Inj 1 Mg Vial) 1 mg IVP X1 ONE Stop: 04/04/25 15:40 Last Admin: 04/04/25 15:46 Dose: 1 mg Hydrocortisone Sodium Succinate (Hydrocortisone Sod Succ Inj 100 Mg Vial) 100 mg IV X1 ONE Stop: 04/05/25 09:36 Sodium Chloride (Ns) 2,466 mls @ 2,466 mls/hr 30 ml/kg infuse over 60 min (2466 ml) IV .Q1H ONE Stop: 04/04/25 14:35 Last Infusion: 04/04/25 14:50 Dose: Infused Piperacillin/Tazobactam/Dextrose (Zosyn) 3.375 gm in 50 mls @ 100 mls/hr IV X1 ONE Stop: 04/04/25 14:15 Last Infusion: 04/04/25 14:55 Dose: Infused Vancomycin HCl 2,000 mg/ (Sodium Chloride) 500 mls @ 120 mls/hr IV X1 ONE Stop: 04/04/25 17:59 Last Infusion: 04/04/25 19:13 Dose: Infused Magnesium Sulfate (Magnesium Sulfate Ivpb) 4 gm in 50 mls @ 12.5 mls/hr IV X1 ONE Stop: 04/04/25 19:29 Last Admin: 04/04/25 16:16 Dose: 12.5 mls/hr Dextrose/Sodium Chloride (D5-Ns) 1,000 mls @ 100 mls/hr IV .Q10H MARIANO Stop: 05/04/25 17:59 Last Admin: 04/04/25 19:13 Dose: Not Given Albumin Human (Albuminar-25 Ivpb) 25 gm in 100 mls @ 100 mls/hr IV QDAY MARIANO Stop: 04/07/25 19:06 Last Admin: 04/05/25 08:56 Dose: 100 mls/hr Dextrose (D10w) 500 mls @ 50 mls/hr IV .Q10H MARIANO Stop: 05/04/25 19:11 Last Admin: 04/04/25 19:53 Dose: Not Given Magnesium Sulfate (Magnesium Sulfate Ivpb) 4 gm in 50 mls @ 12.5 mls/hr IV X1 ONE Stop: 04/04/25 23:13 Last Admin: 04/04/25 19:59 Dose: 12.5 mls/hr Vancomycin HCl/Dextrose (Vancomycin/D5w 1,250 Mg Ivpb) 250 mls @ 120 mls/hr IV X1 ONE Stop: 04/05/25 16:04 Lidocaine HCl (Lidocaine Hcl 1% 20 Ml Vial) 20 ml INFL X1 ONE Stop: 04/04/25 17:13 Last Admin: 04/04/25 17:40 Dose: 20 ml Pantoprazole Sodium (Pantoprazole Inj 40 Mg Vial) 40 mg IVP QDAY MARIANO Stop: 04/05/25 09:00 Pharmacy Consult (Vancomycin Pharmacy To Dose 1 Each Each) 1 each IV QDAY PRN PRN Reason: PROTOCOL Stop: 05/05/25 08:59 Assessment & Plan Plan Sincere Weaver is 59 yr male with PMH of ESRD on HD MWF, chronic thrombocytopenia and anemia of CKD with recurrent biweekly blood transfusions, hypothyroidism, HFpEF, chronic left leg ulcer with bilateral venous insufficiency and stasis dermatitis who presented to ED on 04/04/25 due generalized weakness. Nephrology was consulted to resume inpatient dialysis. #ESRD on HD M/W/F #Anemia of chronic disease #Recurrent blood transfusions HD access site through left upper extremity AV fistula. Last session completed this past Thursday. BP soft 89/41. Hemoglobin 9.0, MCV 83, platelets 33, sodium 139, potassium 3.7, BUN 30, creatinine 5.8, GFR 11 this morning. HD through AV fistula. -resume inpatient dialysis -am -renally dose medications -renal diet -discontinued vancomycin due to red man syndrome reaction in past Persistent hypoglycemia Combined septic and hypovolemic shock Significant UTI Acute on chronic anemia and thrombocytopenia Neutropenia Significant metabolic abnormalities Lactic acidosis settings of sepsis and anemia HFpEF 55-60% Diarrhea, likely GI bleed given history above Bilateral lower extremity cellulitis Large left lower extremity ulcer Osteomyelitis of left lower extremity Possible metastatic neoplasm//intra-abdominal lymphadenopathy -management continued by ICU team The patient's management plan was discussed with my attending physician Dr. Cotton. Gabi Shaikh, PGY-2 Attending Provider Attestation/Addendum Patient seen and examined with resident physician Dr. Shaikh. Note reviewed, agree with findings and recommendations. Patient admitted with weakness, symptomatic hypoglycemia. Currently on D10 drip. Blood pressure on the lower side. He is going to get dialysis tomorrow. Thank you Rosaura for allowing me to participate in the care of Mr. Weaver
--- NOTE | 2025-04-05 10:57 | EKG_ITS ---
[facility] Test Date: 2025-04-05 Pat Name: ERICK WARNER Department: Room: S253A Gender: Male Inventory Transcriber: DELFINA : 1965 Requested By: Luis Jhon Order Number: [id number] Reading MD: Luis John Measurements Intervals [place] Rate: 64 P: IN: QRS: 51 QRSD: 132 T: 218 QT: 460 QTc: 476 Interpretive Statements ATRIAL FIBRILLATION INTRAVENTRICULAR CONDUCTION DELAY Compared to ECG 04/04/2025 13:36:13 Intraventricular conduction delay now present Sinus rhythm no longer present First degree AV block no longer present Myocardial infarct finding no longer present /store/[id number]
[2025-04-05] MEDS: HYDROCORTISONE SOD SUCC INJ 100 MG VIAL IV (10:58)
[2025-04-05] MEDS: MIDODRINE 5 MG TABLET PO ×3 (10:59→20:57)
--- NOTE | 2025-04-05 11:35 | ESPR_ITS ---
Documentation for date of: 04/05/25 Subjective Subjective Interval history: Mr Weaver is a 59-year-old male patient with past medical history of ESRD on hemodialysis MWF, hypothyroidism, HFpEF, chronic left leg ulcer, questionable bilateral venous insufficiency, history of osteomyelitis, chronic pancytopenia, presented to the ED due to generalized weakness for 3 days patient reported that he has been having excessive sweating because of the heat, also started to experience dysuria and change in color of urine. Yesterday night patient reported that he fell off the bed and was unable to get off the bed and slept to the next morning and he still was unable to get off the floor. He said that he has multiple episodes of diarrhea at the time in which he defecated and urinated on himself. After that he called the EMS in which when they brought him patient was covered with urine and feces. His feces was black in color and liquid and has multiple episodes of tenesmus and diarrhea of black tarry stool at the ED in which he was tested by the ED physician and it was negative for occult blood. Patient reported that he has not been able to eat for the past 1 day because of his generalized weakness. Patient denied any abdominal pain, cough, chest pain, shortness of breath, and denied any vomiting of blood. Patient reported that he has been regular in his hemodialysis and was recently prescribed antibiotics Home medications: Lasix, levothyroxine, Mere-Martín, Velphoro, however was still pending official medication reconciliation ED course: At the ED patient was found to have blood pressure of 63/38, pulse rate of 82, temperature of 101.3, patient was resuscitated with 2.4 L of fluids and was given 1 unit of blood. His blood pressure improved to 94/53. His temperature has resolved. Noticed hemoglobin to be 5.6, platelets of 2.4, magnesium 0.6, potassium 3.1, serum creatinine 5.4, blood glucose 55 albumin of 1.7. His urine analysis showed more than 17,000 WBC, more than 200 RBCs. Chest x-ray was only significant for questionable vascular congestion. Patient received multiple boluses of D50, D10, and his blood sugar continue to be in the low 50s and 40s. Patient was given 4 g of magnesium, was started on Zosyn and vancomycin. 04/05/2025: Patient seen and examined at bedside, bilateral upper extremity petechia noted, does have poor circulation. Patient's fingerstick blood glucoses not consistent with central line blood glucose this morning, patient does not have a goal phone for [employer] which we tried to place to improve reading of hypoglycemic events. We will discontinue D10, check blood glucose every [address] hours. Hypoglycemia protocol in place. We will start patient on stress dose steroids considering patient has distributive shock, started midodrine, will try to titrate off pressors. Will reach out to IR for possible biopsy for the underlying nodules read on CT chest abdomen pelvis/lower extremity, will consider platelet transfusion prior to biopsy. Repeat occult blood is pending, will continue with Protonix twice daily, will follow H&H at midnight. Exam Vital Signs Temp Pulse Resp BP Pulse Ox O2 Del Method O2 Flow Rate 98.3 F 63 15 88/47 L 100 Nasal Cannula 2 04/05/25 08:00 04/05/25 10:59 04/05/25 08:45 04/05/25 10:59 04/05/25 08:45 04/05/25 08:00 04/05/25 08:00 Narrative Exam Physical Exam General: Awake and in no acute distress. Conversational and non-toxic appearing. HEENT: Normocephalic, atraumatic, mucous membranes moist. Heart: Regular rate and rhythm, no murmurs. Lungs: Clear to auscultation with no wheezing or crackles. Abdomen: Soft, nondistended, nontender, positive bowel sounds. ?No guarding or rebound tenderness. Neurologic: Alert and oriented x3, no gross neurological deficit, and patient able to move all 4 extremities. Extremities: 2+ bilateral lower extremity edema, chronic venous stasis changes, bilateral petechiae seen upper extremities, cool fingertips. Skin: Left lower extremity wound with granulation tissue some serosanguineous oozing Objective Labs 04/06/25 04:43 04/06/25 04:43 Labs: Laboratory Results - last 24 hr 04/04/25 04/04/25 04/04/25 13:51 14:04 15:31 WBC 3.0 L RBC 1.79 L* Hgb 5.2 L* Hct 15.2 L* MCV 85 MCH 29.1 MCHC 34.2 RDW Std Deviation 46.1 H Plt Count 24 L* D Neut % (Auto) 80 Lymph % (Auto) 11 [place] % (Auto) 6 Eos % (Auto) 1 Baso % (Auto) 0 Neut # (Auto) 2.4 Lymph # (Auto) 0.3 L [place] # (Auto) 0.2 Eos # (Auto) 0.0 Baso # (Auto) 0.0 Immature Gran # (Auto) 0.02 H Absolute Nucleated RBC 0.00 Immature Gran % 1 H Nucleated RBC % 0 PT INR APTT Sodium 147 H 139 Potassium 3.1 L 4.1 D Chloride 114 H 100 Carbon Dioxide 20.5 28.8 Anion Gap 13 10 BUN 17 26 H Creatinine 3.6 H D 5.4 H* D Estim Creat Clear Calc 32.1 L 21.4 L eGFR 19 L 12 L* BUN/Creatinine Ratio 5 L 5 L Glucose 30 L* 55 L D Calculated Osmolality 289 280 Lactic Acid 3.1 H Calcium 5.2 L* 7.4 L D Corrected Calcium 7.0 L 8.6 D Phosphorus Magnesium 0.6 L* Total Bilirubin 0.5 0.8 AST 22 34 ALT < 7 L < 7 L Alkaline Phosphatase 52 77 D Troponin I 0.046 H* C-Reactive Prot, Quant B-Natriuretic Peptide 250 H Total Protein 3.9 L 5.7 Albumin 1.7 L 2.5 L D Globulin 2.2 L 3.2 Albumin/Globulin Ratio 0.8 L 0.8 L Lipase 10 L Ur Collection Type Voided Urine Color [place] A Urine Clarity Cloudy A Urine pH 7.5 H Ur Specific [place] 1.010 Urine Protein 2+ A Urine Glucose (UA) Negative Urine Ketones Negative Urine Blood 2+ A Urine Nitrite Negative Urine Bilirubin Negative Urine Urobilinogen (Auto) Negative Ur Leukocyte Esterase Positive Urine RBC 219 H Urine WBC 25293 H Ur Squamous Epith Cells 14 H Urine Bacteria Rare Ur Culture Indicated? Contaminated Misc Test Result Platelets confirmed Blood Type O Positive Antibody Screen NEGATIVE Crossmatch See Detail Blood Bank Wristband ID Yes Blood Bank Comment PLATP Ready 04/04/25 04/04/25 04/04/25 18:00 18:30 22:54 WBC RBC Hgb Hct MCV MCH MCHC RDW Std Deviation Plt Count Neut % (Auto) Lymph % (Auto) [place] % (Auto) Eos % (Auto) Baso % (Auto) Neut # (Auto) Lymph # (Auto) [place] # (Auto) Eos # (Auto) Baso # (Auto) Immature Gran # (Auto) Absolute Nucleated RBC Immature Gran % Nucleated RBC % PT INR APTT Sodium Potassium Chloride Carbon Dioxide Anion Gap BUN Creatinine Estim Creat Clear Calc eGFR BUN/Creatinine Ratio Glucose Calculated Osmolality Lactic Acid 3.2 H 1.7 Calcium Corrected Calcium Phosphorus Magnesium Total Bilirubin AST ALT Alkaline Phosphatase Troponin I 0.078 H* 0.089 H* C-Reactive Prot, Quant 13.4 H B-Natriuretic Peptide Total Protein Albumin Globulin Albumin/Globulin Ratio Lipase Ur Collection Type Urine Color Urine Clarity Urine pH Ur Specific [place] Urine Protein Urine Glucose (UA) Urine Ketones Urine Blood Urine Nitrite Urine Bilirubin Urine Urobilinogen (Auto) Ur Leukocyte Esterase Urine RBC Urine WBC Ur Squamous Epith Cells Urine Bacteria Ur Culture Indicated? Misc Test Result Blood Type Antibody Screen Crossmatch Blood Bank Wristband ID Blood Bank Comment 04/05/25 04/05/25 04/05/25 01:50 05:14 09:16 WBC 4.4 D 5.1 RBC 3.09 L 3.07 L Hgb 8.8 L D 8.9 L 9.0 L Hct 25.3 L D 25.4 L 25.7 L MCV 82 83 MCH 28.5 29.0 MCHC 34.8 35.0 RDW Std Deviation 44.4 H 44.6 H Plt Count 24 L* 33 L D Neut % (Auto) 83 H 82 H Lymph % (Auto) 6 L 6 L [place] % (Auto) 4 5 Eos % (Auto) 6 7 Baso % (Auto) 0 0 Neut # (Auto) 3.6 4.1 Lymph # (Auto) 0.3 L 0.3 L [place] # (Auto) 0.2 0.2 Eos # (Auto) 0.3 0.3 Baso # (Auto) 0.0 0.0 Immature Gran # (Auto) 0.02 H 0.02 H Absolute Nucleated RBC 0.00 0.00 Immature Gran % 1 H 0 Nucleated RBC % 0 0 PT 16.1 H D INR 1.5 H APTT 46.1 H Sodium 139 Potassium 3.7 Chloride 100 Carbon Dioxide 27.6 Anion Gap 11 BUN 30 H Creatinine 5.8 H* Estim Creat Clear Calc 19.9 L eGFR 11 L* BUN/Creatinine Ratio 5 L Glucose 100 D 106 Calculated Osmolality 283 Lactic Acid 2.2 H 2.8 H Calcium 8.1 L Corrected Calcium 9.2 Phosphorus 3.2 Magnesium 2.0 Total Bilirubin 0.8 AST 44 H ALT 9 L Alkaline Phosphatase 76 Troponin I C-Reactive Prot, Quant B-Natriuretic Peptide Total Protein 5.7 Albumin 2.6 L Globulin 3.1 Albumin/Globulin Ratio 0.8 L Lipase Ur Collection Type Urine Color Urine Clarity Urine pH Ur Specific [place] Urine Protein Urine Glucose (UA) Urine Ketones Urine Blood Urine Nitrite Urine Bilirubin Urine Urobilinogen (Auto) Ur Leukocyte Esterase Urine RBC Urine WBC Ur Squamous Epith Cells Urine Bacteria Ur Culture Indicated? Misc Test Result Platelets confirmed Platelets confirmed Blood Type Antibody Screen Crossmatch Blood Bank Wristband ID Blood Bank Comment Quality Measures Quality Measures none Assessment & Plan Assessment Current Active Medications: Generic Name Dose Route Start Last Admin Trade Name Freq PRN Reason Stop Dose Admin Acetaminophen 650 mg 04/04/25 17:40 Acetaminophen 325 Mg Tablet PO 05/04/25 17:39 Q6H PRN PAIN SCALE 1-3 (mild Acetaminophen 650 mg 04/04/25 17:40 Acetaminophen 325 Mg Tablet PO 05/04/25 17:39 Q6H PRN Fever >100.4 Hydrocodone Bitart/Acetaminophen 1 tab 04/04/25 17:40 Hydrocodone/Apap 10/325 Tab PO 04/09/25 17:39 Q4HR PRN PAIN SCALE 7-10 (Severe Dextrose 25 ml 04/04/25 19:18 04/04/25 21:00 Dextrose 50%-Water Inj 50 Ml Syringe IV 05/04/25 19:17 25 ml Q15MIN PRN Administration BG 50-70 responsive npo pt Dextrose 50 ml 04/04/25 19:18 04/04/25 20:05 Dextrose 50%-Water Inj 50 Ml Syringe IV 05/04/25 19:17 50 ml Q15MIN PRN Administration BG <50 OR BG <70 & pt unresponsive Glucagon 1 mg 04/04/25 19:18 Glucagon Inj 1 Mg Vial IM Q15MIN PRN BG <70, and no IV access Hydrocortisone Sodium Succinate 50 mg 04/05/25 12:00 Hydrocortisone Sod Succ Inj 100 Mg Vial IV 05/05/25 16:00 Q6HR MARIANO Piperacillin/Tazobactam/Dextrose 3.375 gm in 50 mls @ 12.5 mls/hr 04/04/25 22:00 04/05/25 05:29 Zosyn IV 04/11/25 21:59 12.5 mls/hr Q8HR MARIANO Administration Norepinephrine Bitartrate 16 mg in 250 mls @ 6.094 mls/hr 04/04/25 19:07 04/05/25 06:00 Levophed In Ns 16mg/250ml IV 05/04/25 19:06 0.03 mcg/kg/min .Q24H PRN 3.656 mls/hr PER PROTOCOL Titration Protocol 0.05 MCG/KG/MIN Levothyroxine Sodium 112 mcg 04/05/25 06:00 04/05/25 05:28 Levothyroxine Sodium 112 Mcg Tablet PO 05/05/25 05:59 112 mcg ACBR MARIANO Administration Midodrine 5 mg 04/05/25 11:00 04/05/25 10:59 Midodrine 5 Mg Tablet PO 05/05/25 10:59 5 mg TID MARIANO Administration Ondansetron HCl 4 mg 04/04/25 17:40 Ondansetron Inj 2 Mg/Ml Inj 2 Ml IVP 05/04/25 17:39 Q6H PRN NAUSEA OR VOMITING Protocol Oxycodone/Acetaminophen 1 tab 04/04/25 17:40 04/05/25 03:12 Oxycodone/Apap 5/325 Tablet PO 04/09/25 17:39 1 tab Q6H PRN Administration PAIN SCALE 4-6 (Moderate Pantoprazole Sodium 40 mg 04/04/25 21:00 04/05/25 08:56 Pantoprazole Inj 40 Mg Vial IVP 05/04/25 20:59 40 mg BID MARIANO Administration Vitamin B Complex/Vit C/Folic Acid 1 tab 04/04/25 19:30 04/05/25 08:56 Vit B12/Vit C/Fa (Nephrovite) Tablet PO 05/04/25 19:29 1 tab QDAY MARIANO Administration Plan Summary:A 59-year-old male patient with past medical history of ESRD on hemodialysis MWF, hypothyroidism, HFpEF, chronic left leg ulcer, questionable bilateral venous insufficiency, history of osteomyelitis, chronic pancytopenia, presented to the ED due to generalized weakness for 3 days. Patient was upgraded to the ICU secondary to septic shock and severe hypoglycemia. 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 Lactic acid 3.1, UA more than 17,000 WBCs Delayed capillary refill more than 3 seconds, warm skin. Plan: - Patient was given IV albumin to assist with resuscitation - Continue Levophed, titrate to goal MAP greater than 65 - Started on midodrine 5 mg 3 times daily - NICOM assessment, fluid challenge shows patient is not fluid responsive, patient was given 250 cc bolus fluid - Continue Zosyn, vancomycin was discontinued patient has history of red man syndrome - Started on stress dose steroids #HFpEF 55 to 60% in December 2024 #Mild aortic stenosis Patient has echo was done in December 2024 showed ejection fraction of 55 to 60%, however patient only reported using Lasix as he does not produce regular amount of urine secondary to his renal failure. Plan: -Continue to monitor urine output closely, strict ins and outs Pulm #Bilateral pulmonary nodules #Pulmonary artery hypertension CT chest abdomen pelvis shows pulmonary arterial hypertension, 10 subcentimeter bilateral pulmonary nodules, consider early pulmonary nodular metastatic disease, negative for pneumonia. Plan: - Patient has extensive lymphadenopathy, will consider biopsy - Will discuss with IR, patient will likely need platelet transfusion prior to biopsy. - Will consider consulting heme-onc post biopsy GI #Diarrhea with black tarry stool #GI bleed rule out Patient reported multiple episodes of diarrhea, noticed to be black tarry stool, occult blood test in ED was negative, patient has history of antibiotic use recently. History of EGD done 2 years ago however he does not remember the results. Hemoglobin is chronically low difficult to determine if he has anemia secondary to GI bleed or secondary to his chronic pancytopenia. Plan: - Follow stool culture, ova and parasite, C. 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 Cotton Plan: Consult civil rights investigator Dr. Cotton, continue dialysis inpatient, strict in and out #UTI On examination his urine noticed to be milky white, patient has history of dysuria and frequency for the past 3 days, noticed to have fever Plan: Continue Zosyn, follow urine culture, repeat urinalysis Endocrinology #Severe hypoglycemia #Questionable adrenal insufficiency Patient has history of recurrent episodes of hypoglycemia in previous admissions, and presentation his blood glucose from venous sample was 55, repeats continue to be in the 50s or 40s. Patient was given D50W and a snack however his blood sugar continued to be in the lower side. Plan: - We will discontinue D10, consecutive samples from central line greater than 100 - Continue regular diet - Started on stress dose steroids for underlying distributive shock #History of hypothyroidism Continue levothyroxine 112 mcg Hematology/oncology #Pancytopenia, Patient was found to have recurrent episodes of blood transfusion secondary to severe anemia, low platelets, occasional leukopenia, today his CBC showed hemoglobin of 5.6, platelets of 24, WBCs of 3.0 Bone marrow biopsy and aspiration were taken in 2023 however the sample was inconclusive secondary to not enough sample. Bone marrow biopsy from 2022 is normal Plan: - Patient was transfused 3 units PRBC, follow H&H at midnight - Hold platelets 1 unit, will consider transfusing prior to biopsy ID #[email or web address] Pending urine culture and blood culture, urinalysis showed WBC more than 17,000 Plan continue Zosyn as above #History of osteomyelitis of the left tibia and fibula #History of chronic venous ulcer Patient supposed to finish his IV antibiotic for osteomyelitis in January this year, his wound seems to be clean however there is mild swelling of the left leg CT Scan LLE: Prominent cellulitis left lower extremity, Significant lymphadenopathy left pelvis left groin and proximal thigh, Negative for soft tissue abscess, negative for osteomyelitis Plan: Continue IV antibiotic as above, continue wound care, referral to wound care Hospital Maintenance: FEN: Regular diet DVT ppx: SCDs GI ppx: Protonix BID IV lines: Femoral central line, peripheral lines Servin: None Code status: Full code Dispo: ICU, continue on pressors Case discussed with Attending Dr. Arias. Luis John PGY2 Disclaimer: This note was dictated by speech recognition. Minor errors in finishing pan operator may be present due to voice recognition software. Attending Provider Attestation/Addendum Patient seen examined resident team, agree with above. In brief is a 59-year-old male admitted to the ICU for shock secondary to sepsis and UTI as well as hypoglycemia requiring a D10 drip. He does have a history of end-stage renal disease on hemodialysis. This morning he is awake alert and oriented, he is cooperative with exam. He is obese. Lungs clear to auscultation, heart rate regular rhythmic, lower extremities with edema and left lower extremity has chronic venous stasis dermatitis with several ulcerations to have a clean base with no purulent discharge noted. His vasopressors are being weaned. Cultures are pending. He is on broad-spectrum antibiotics. Wound care was consulted for his lower extremities. He is being started on a p.o. diet so that we can titrate his D10 off. He does have pancytopenia and is being transfused. This is longstanding and has been present for several years with extensive workup without any precise etiology found. He has noted on CT to have diffuse lymphadenopathy which required a biopsy once he is stable. Case discussed with ICU team Labs, imaging records reviewed Approximately 50 critical care min required for evaluation, exam, review, intervention, discussion and formation of plan of care for this patient with septic shock at high risk of further ongoing decompensation.
[2025-04-05 12:32] LABS: Reflex Lactate? Y
[2025-04-05 12:34] LABS: Lactate (Lactic Acid) 2.4 mMol/L (0.4-2.0)
[2025-04-05] MEDS: HYDROCORTISONE SOD SUCC INJ 100 MG VIAL 50 MG IV ×3 (13:32→23:44)
[2025-04-05 13:36] LABS: Troponin I 0.092 ng/mL (0.0-0.045)
--- NOTE | 2025-04-05 13:39 | PC.SS ---
SS and MOBILE SOLUTIONS ARCHITECT met with patient in ICU. Patient is alert/oriented. Patient was able to verify all demographics. Patient states he resides alone. He states he's been having difficulty ambulating and due to chronic anemia feels weak all the time. Patient states he's independent with ADL's. Patient does not use any 02 at home. No other DME. He's currently on 02 in hospital. Patient states he's been recently falling a lot more at home. He recently fell off his bed and could not get back up so layed on the floor until the ambulance came. Patient states he was covered with feces and soiled himself when ambulance crew arrived. Patient states he has a lot of cats and needs to contact his twin brother to check on them. Patient states he has no history of substance abuse. Patient confirmed he coto a long history of depression and anxiety. He is now retired from [employer] and receives [employer] income. No food stamps. Patient wants to re-apply. Patient verbalized he needs more help at home and that he has a lot of trash that needs to be taken out. Patient is on dialysis with Dr. Cotton every M/W/F @ 11a.m. with Lily LANGLEY. Patient takes the medivan to dialysis. Discussed SNF as a d/c option due to the home situation and frequent falls. Patient states he's been to [facility] in the past and is interested in going short term. SS will send off inquiry on [employer]. Patient verbalized his alt medical decision maker is his twin brother, Cal. PCP: Dr. Cotton. Pharmacy: [facility]. alt medical decision maker: Cal, brother, d/c plan: short term SNF transportation: [facility] at the time of d/c
[2025-04-05 15:32] LABS: Reflex Lactate? Y
[2025-04-05 15:38] LABS: Lactate (Lactic Acid) 2.7 mMol/L (0.4-2.0)
[2025-04-05 16:29] LABS: Collection Type, Urine Clean Catch; Squamous Epithelial Cell,Urine 0 /hpf (0-5)
[2025-04-05 17:39] LABS: Bacteria,Urine 1+; Bilirubin,Urine Negative (Negative); Blood,Urine 3+ (Negative); Color,Urine Yellow (Lt Yel-Yel); Glucose, Urine Trace (Negative); Ketones,Urine Negative (Negative); Leukocyte Esterase,Urine Positive (Negative); Nitrite,Urine Negative (Negative); PH,Urine 8.5 (5.0-7.0); Protein,Urine 2+ (Neg - Trace); RBC,Urine 272 /hpf (0-3); Specific Gravity,Urine 1.008 (1.001-1.035); Urobilinogen,Urine Negative mg/dL (0.0-1.0); WBC,Urine 1379 /hpf (0-5)
[2025-04-05 18:00] LABS: Clarity,Urine Turbid (Clear/Hazy)
[2025-04-05 18:34] LABS: Reflex Lactate? Y
[2025-04-05 19:23] LABS: Lactic Acid, 3 HR 2.7 mMol/L (0.4-2.0)
[2025-04-05] MEDS: ONDANSETRON INJ 2 MG/ML INJ 2 ML 4 MG IVP (20:49)
[2025-04-06] VITALS (59 sets, daily range): BP systolic 94–134; BP diastolic 51–90; PULSE 51–91; RESP 4–21; TEMP 36.2–36.6; O2SAT 92–100; BMI 37.1
[2025-04-06 00:30] LABS: Hematocrit 24.4 % (41.0-53.0)
[2025-04-06 00:33] LABS: Hemoglobin 8.3 g/dL (13.5-16.0)
[2025-04-06] MEDS: LEVOTHYROXINE SODIUM 112 MCG TABLET PO (05:29)
[2025-04-06] MEDS: MIDODRINE 5 MG TABLET PO ×2 (05:29→21:12)
[2025-04-06] MEDS: PIPER/TAZO 3.375 GM PREMIX 3.375 GM/50 ML BAG IV (05:29)
[2025-04-06] MEDS: HYDROCORTISONE SOD SUCC INJ 100 MG VIAL 50 MG IV ×2 (05:29→21:13)
[2025-04-06 06:23] LABS: Basophils # (Auto) 0.0 Thou/mm3 (0.0-0.2); Basophils % (Auto) 0 % (0-2.5); Eosinophils # (Auto) 0.1 Thou/mm3 (0.0-0.5); Eosinophils % (Auto) 2 % (0-10); Hematocrit 22.1 % (41.0-53.0); Immature Granulocytes Auto 0.02 Thou/mm3 (0.00-0.00); Lymphocytes # (Auto) 0.3 Thou/mm3 (1.0-4.8); Lymphocytes % (Auto) 7 % (10-50); Mean Corpuscular HGB Conc 34.4 g/dl (31.0-37.0); Mean Corpuscular Hemoglobin 28.6 pg (25.0-35.0); Mean Corpuscular Volume 83 fL (80-100); Monocytes # (Auto) 0.2 Thou/mm3 (0.0-0.8); Monocytes % (Auto) 4 % (0-12); Neutrophils # (Auto) 3.5 Thou/mm3 (1.8-7.7); Neutrophils % (Auto) 86 % (37-80); Nucleated Red Blood Cell # 0.00 Thou/mm3 (0.00-0.00); Nucleated Red Blood Cell % 0 /100 WBC (0); RDW Standard Deviation 46.1 fL (35.1-43.9); Red Blood Count 2.66 Miln/mm3 (4.50-5.90); White Blood Count 4.0 Thou/mm3 (3.8-10.6)
[2025-04-06 06:27] LABS: INR 1.2 (0.9-1.3); Partial Thromboplastin Time 42.7 Seconds (22.0-36.0); Prothrombin Time 13.0 Seconds (9.0-12.2)
[2025-04-06 06:28] LABS: Hemoglobin 7.6 g/dL (13.5-16.0); Platelet Count 28 Thou/mm3 (140-440)
[2025-04-06 06:29] LABS: Slide Review Platelets confirmed
[2025-04-06 06:48] LABS: Alanine Aminotransferase 9 U/L (10-49); Albumin, Serum 2.7 gm/dL (3.5-5.0); Albumin/Globulin Ratio 0.9 (1.2-2.2); Alkaline Phosphatase 98 U/L (46-116); Anion Gap 10 (7-16); Aspartate Amino Transferase 27 U/L (0-34); BUN/Creatinine Ratio 6 Ratio (12-20); Bilirubin,Total 0.4 mg/dL (0.3-1.2); Blood Urea Nitrogen 41 mg/dL (9-23); Calcium 8.7 mg/dL (8.3-10.6); Calcium (Corrected) 9.7 mg/dL (8.5-10.1); Carbon Dioxide 25.9 mMol/L (20.0-31.0); Chloride 102 mMol/L (98-107); Creatinine (Component) 7.0 mg/dL (0.6-1.3); Estimated Creatinine Clearance 16.6 mL/min (>60); Globulin 3.0 gm/dL (2.3-3.5); Glucose 129 mg/dL (74-106); Magnesium 2.1 mg/dL (1.6-2.6); Osmolality,Calculated 287 (275-295); Phosphorous 4.3 mg/dL (2.4-5.1); Potassium 4.4 mMol/L (3.4-5.1); Sodium 138 mMol/L (136-145); Total Protein 5.7 gm/dL (5.7-8.2); Vancomycin,Random 15.1 mcg/mL; eGFR 8 See Note
[2025-04-06] MEDS: VIT B12/Vit C/FA (Nephrovite) TABLET 1 TAB PO (09:47)
--- NOTE | 2025-04-06 11:19 | PC.CC ---
Patient currently in ICU. Pt was off of pressures this morning. Pt had a dialysis and blood trans this morning. Pt on central line. Pt might be illegible to transfer down to a lower level of care,
[2025-04-06] MEDS: cefTRIAXone/D5w 1gm IV premix 1 GM/50 ML BAG IV (12:23)
--- NOTE | 2025-04-06 12:36 | ESPR_ITS ---
Documentation for date of: 04/06/25 Subjective Subjective Interval history: Mr Weaver is a 59-year-old male patient with past medical history of ESRD on hemodialysis MWF, hypothyroidism, HFpEF, chronic left leg ulcer, questionable bilateral venous insufficiency, history of osteomyelitis, chronic pancytopenia, presented to the ED due to generalized weakness for 3 days patient reported that he has been having excessive sweating because of the heat, also started to experience dysuria and change in color of urine. Yesterday night patient reported that he fell off the bed and was unable to get off the bed and slept to the next morning and he still was unable to get off the floor. He said that he has multiple episodes of diarrhea at the time in which he defecated and urinated on himself. After that he called the EMS in which when they brought him patient was covered with urine and feces. His feces was black in color and liquid and has multiple episodes of tenesmus and diarrhea of black tarry stool at the ED in which he was tested by the ED physician and it was negative for occult blood. Patient reported that he has not been able to eat for the past 1 day because of his generalized weakness. Patient denied any abdominal pain, cough, chest pain, shortness of breath, and denied any vomiting of blood. Patient reported that he has been regular in his hemodialysis and was recently prescribed antibiotics Home medications: Lasix, levothyroxine, Mere-Martín, Velphoro, however was still pending official medication reconciliation ED course: At the ED patient was found to have blood pressure of 63/38, pulse rate of 82, temperature of 101.3, patient was resuscitated with 2.4 L of fluids and was given 1 unit of blood. His blood pressure improved to 94/53. His temperature has resolved. Noticed hemoglobin to be 5.6, platelets of 2.4, magnesium 0.6, potassium 3.1, serum creatinine 5.4, blood glucose 55 albumin of 1.7. His urine analysis showed more than 17,000 WBC, more than 200 RBCs. Chest x-ray was only significant for questionable vascular congestion. Patient received multiple boluses of D50, D10, and his blood sugar continue to be in the low 50s and 40s. Patient was given 4 g of magnesium, was started on Zosyn and vancomycin. 04/05/2025: Patient seen and examined at bedside, bilateral upper extremity petechia noted, does have poor circulation. Patient's fingerstick blood glucoses not consistent with central line blood glucose this morning, patient does not have a goal phone for [employer] which we tried to place to improve reading of hypoglycemic events. We will discontinue D10, check blood glucose every 4 hours. Hypoglycemia protocol in place. We will start patient on stress dose steroids considering patient has distributive shock, started midodrine, will try to titrate off pressors. Will reach out to IR for possible biopsy for the underlying nodules read on CT chest abdomen pelvis/lower extremity, will consider platelet transfusion prior to biopsy. Repeat occult blood is pending, will continue with Protonix twice daily, will follow H&H at midnight. 04/06/2025: Patient seen and examined at bedside, has been off of pressors since overnight. Central line blood glucose samples have been greater than 100, D10 was discontinued yesterday. Patient's hemoglobin continues to trend down, we will consult gastroenterology, currently being transfused 1 unit PRBC and 1 unit of platelets, patient will receive hemodialysis today. Consulted heme-onc today for pancytopenia, patient did have 2 bone marrow biopsies in the past which were negative for myelodysplastic syndrome, has seen heme-onc Dr. Hess in the past as well. Follow stool WBC, C. difficile. Continue midodrine 5 mg p.o. 3 times daily, MAP greater than 65. Patient is stable to be downgraded to telemetry, hospitalist team to follow up care. Exam Vital Signs Temp Pulse Resp BP Pulse Ox O2 Del Method O2 Flow Rate 97.1 F 63 14 113/67 100 Room Air 2 04/06/25 12:26 04/06/25 12:04/06/25 12:04/06/25 12:04/06/25 12:04/06/25 12:04/05/25 08:00 Narrative Exam Physical Exam General: Awake and in no acute distress. Conversational and non-toxic appearing. HEENT: Normocephalic, atraumatic, mucous membranes moist. Heart: Regular rate and rhythm, no murmurs. Lungs: Clear to auscultation with no wheezing or crackles. Abdomen: Soft, nondistended, nontender, positive bowel sounds. ?No guarding or rebound tenderness. Neurologic: Alert and oriented x3, no gross neurological deficit, and patient able to move all 4 extremities. Extremities: 2+ bilateral lower extremity edema, chronic venous stasis changes, bilateral petechiae seen upper extremities, cool fingertips. Skin: Left lower extremity wound with granulation tissue some serosanguineous oozing Objective Labs 04/06/25 04:43 04/06/25 04:43 Labs: Laboratory Results - last 24 hr 04/04/25 04/05/25 04/05/25 13:51 09:16 15:25 WBC RBC Hgb Hct MCV MCH MCHC RDW Std Deviation Plt Count Neut % (Auto) Lymph % (Auto) [place] % (Auto) Eos % (Auto) Baso % (Auto) Neut # (Auto) Lymph # (Auto) [place] # (Auto) Eos # (Auto) Baso # (Auto) Immature Gran # (Auto) Absolute Nucleated RBC Immature Gran % Nucleated RBC % PT INR APTT Sodium Potassium Chloride Carbon Dioxide Anion Gap BUN Creatinine Estim Creat Clear Calc eGFR BUN/Creatinine Ratio Glucose Calculated Osmolality Lactic Acid 2.7 H Calcium Corrected Calcium Phosphorus Magnesium Total Bilirubin AST ALT Alkaline Phosphatase Troponin I 0.092 H* Total Protein Albumin Globulin Albumin/Globulin Ratio Ur Collection Type Urine Color Urine Clarity Urine pH Ur Specific [place] Urine Protein Urine Glucose (UA) Urine Ketones Urine Blood Urine Nitrite Urine Bilirubin Urine Urobilinogen (Auto) Ur Leukocyte Esterase Urine RBC Urine WBC Ur Squamous Epith Cells Urine Bacteria Random Vancomycin Misc Test Result Blood Type O Positive Antibody Screen NEGATIVE Crossmatch See Detail Blood Bank Wristband ID Yes Blood Bank Comment PLATP Ready 04/05/25 04/05/25 04/06/25 16:17 19:00 00:15 WBC RBC Hgb 8.3 L Hct 24.4 L MCV MCH MCHC RDW Std Deviation Plt Count Neut % (Auto) Lymph % (Auto) [place] % (Auto) Eos % (Auto) Baso % (Auto) Neut # (Auto) Lymph # (Auto) [place] # (Auto) Eos # (Auto) Baso # (Auto) Immature Gran # (Auto) Absolute Nucleated RBC Immature Gran % Nucleated RBC % PT INR APTT Sodium Potassium Chloride Carbon Dioxide Anion Gap BUN Creatinine Estim Creat Clear Calc eGFR BUN/Creatinine Ratio Glucose Calculated Osmolality Lactic Acid 2.7 H Calcium Corrected Calcium Phosphorus Magnesium Total Bilirubin AST ALT Alkaline Phosphatase Troponin I Total Protein Albumin Globulin Albumin/Globulin Ratio Ur Collection Type Clean Catch Urine Color Yellow Urine Clarity Turbid A Urine pH 8.5 H Ur Specific [place] 1.008 Urine Protein 2+ A Urine Glucose (UA) Trace Urine Ketones Negative Urine Blood 3+ A Urine Nitrite Negative Urine Bilirubin Negative Urine Urobilinogen (Auto) Negative Ur Leukocyte Esterase Positive Urine RBC 272 H Urine WBC 1379 H Ur Squamous Epith Cells 0 Urine Bacteria 1+ A Random Vancomycin Misc Test Result Blood Type Antibody Screen Crossmatch Blood Bank Wristband ID Blood Bank Comment 04/06/25 04:43 WBC 4.0 RBC 2.66 L Hgb 7.6 L Hct 22.1 L MCV 83 MCH 28.6 MCHC 34.4 RDW Std Deviation 46.1 H Plt Count 28 L* Neut % (Auto) 86 H Lymph % (Auto) 7 L [place] % (Auto) 4 Eos % (Auto) 2 Baso % (Auto) 0 Neut # (Auto) 3.5 Lymph # (Auto) 0.3 L [place] # (Auto) 0.2 Eos # (Auto) 0.1 Baso # (Auto) 0.0 Immature Gran # (Auto) 0.02 H Absolute Nucleated RBC 0.00 Immature Gran % 1 H Nucleated RBC % 0 PT 13.0 H D INR 1.2 APTT 42.7 H Sodium 138 Potassium 4.4 D Chloride 102 Carbon Dioxide 25.9 Anion Gap 10 BUN 41 H Creatinine 7.0 H* D Estim Creat Clear Calc 16.6 L eGFR 8 L* BUN/Creatinine Ratio 6 L Glucose 129 H Calculated Osmolality 287 Lactic Acid Calcium 8.7 Corrected Calcium 9.7 Phosphorus 4.3 Magnesium 2.1 Total Bilirubin 0.4 AST 27 ALT 9 L Alkaline Phosphatase 98 D Troponin I Total Protein 5.7 Albumin 2.7 L Globulin 3.0 Albumin/Globulin Ratio 0.9 L Ur Collection Type Urine Color Urine Clarity Urine pH Ur Specific [place] Urine Protein Urine Glucose (UA) Urine Ketones Urine Blood Urine Nitrite Urine Bilirubin Urine Urobilinogen (Auto) Ur Leukocyte Esterase Urine RBC Urine WBC Ur Squamous Epith Cells Urine Bacteria Random Vancomycin 15.1 Misc Test Result Platelets confirmed Blood Type Antibody Screen Crossmatch Blood Bank Wristband ID Blood Bank Comment Quality Measures Quality Measures none Assessment & Plan Assessment Current Active Medications: Generic Name Dose Route Start Last Admin Trade Name Freq PRN Reason Stop Dose Admin Acetaminophen 650 mg 04/04/25 17:40 Acetaminophen 325 Mg Tablet PO 08/14/25 17:39 Q6H PRN PAIN SCALE 1-3 (mild Acetaminophen 650 mg 04/04/25 17:40 Acetaminophen 325 Mg Tablet PO 05/04/25 17:39 Q6H PRN Fever >100.4 Hydrocodone Bitart/Acetaminophen 1 tab 04/04/25 17:40 Hydrocodone/Apap 10/325 Tab PO 04/09/25 17:39 Q4HR PRN PAIN SCALE 7-10 (Severe Dextrose 25 ml 04/04/25 19:18 04/04/25 21:00 Dextrose 50%-Water Inj 50 Ml Syringe IV 05/04/25 19:17 25 ml Q15MIN PRN Administration BG 50-70 responsive npo pt Dextrose 50 ml 04/04/25 19:18 04/04/25 20:05 Dextrose 50%-Water Inj 50 Ml Syringe IV 05/04/25 19:17 50 ml Q15MIN PRN Administration BG <50 OR BG <70 & pt unresponsive Glucagon 1 mg 04/04/25 19:18 Glucagon Inj 1 Mg Vial IM Q15MIN PRN BG <70, and no IV access Hydrocortisone Sodium Succinate 50 mg 04/06/25 21:00 Hydrocortisone Sod Succ Inj 100 Mg Vial IV 04/07/25 21:01 BID MARIANO Norepinephrine Bitartrate 16 mg in 250 mls @ 6.094 mls/hr 04/04/25 19:07 04/06/25 03:00 Levophed In Ns 16mg/250ml IV 05/04/25 19:06 0 mcg/kg/min .Q24H PRN 0 mls/hr PER PROTOCOL Titration Protocol 0.05 MCG/KG/MIN Ceftriaxone Sodium/Dextrose 1 gm in 50 mls @ 100 mls/hr 04/06/25 10:57 04/06/25 12:23 Rocephin/D5w 1gm Iv Premix IV 04/13/25 10:56 100 mls/hr QDAY MARIANO Administration Levothyroxine Sodium 112 mcg 04/05/25 06:00 04/06/25 05:29 Levothyroxine Sodium 112 Mcg Tablet PO 05/05/25 05:59 112 mcg ACBR MARIANO Administration Midodrine 5 mg 04/05/25 11:00 04/06/25 05:29 Midodrine 5 Mg Tablet PO 05/05/25 10:59 5 mg TID MARIANO Administration Ondansetron HCl 4 mg 04/04/25 17:40 04/05/25 20:49 Ondansetron Inj 2 Mg/Ml Inj 2 Ml IVP 05/04/25 17:39 4 mg Q6H PRN Administration NAUSEA OR VOMITING Protocol Oxycodone/Acetaminophen 1 tab 04/04/25 17:40 04/05/25 03:12 Oxycodone/Apap 5/325 Tablet PO 04/09/25 17:39 1 tab Q6H PRN Administration PAIN SCALE 4-6 (Moderate Pantoprazole Sodium 40 mg 04/04/25 21:00 04/06/25 09:46 Pantoprazole Inj 40 Mg Vial IVP 05/04/25 20:59 40 mg BID MARIANO Administration Vitamin B Complex/Vit C/Folic Acid 1 tab 04/04/25 19:30 04/06/25 09:47 Vit B12/Vit C/Fa (Nephrovite) Tablet PO 05/04/25 19:29 1 tab QDAY MARIANO Administration Plan Summary:A 59-year-old male patient with past medical history of ESRD on hemodialysis MWF, hypothyroidism, HFpEF, chronic left leg ulcer, questionable bilateral venous insufficiency, history of osteomyelitis, chronic pancytopenia, presented to the ED due to generalized weakness for 3 days. Patient was upgraded to the ICU secondary to septic shock and severe hypoglycemia. 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 Lactic acid 3.1, UA more than 17,000 WBCs Delayed capillary refill more than 3 seconds, warm skin. Plan: - Weaned off Levophed earlier this morning - Continue midodrine 5 mg 3 times daily - Zosyn (04/04-04/06) ---> Ceftriaxone (04/06- #HFpEF 55 to 60% in December 2024 #Mild aortic stenosis Patient has echo was done in December 2024 showed ejection fraction of 55 to 60%, however patient only reported using Lasix as he does not produce regular amount of urine secondary to his renal failure. Plan: -Continue to monitor urine output closely, strict ins and outs -Continue Hemodialysis inpatient Pulm #Bilateral pulmonary nodules #Pulmonary artery hypertension CT chest abdomen pelvis shows pulmonary arterial hypertension, 10 subcentimeter bilateral pulmonary nodules, consider early pulmonary nodular metastatic disease, negative for pneumonia. Plan: - Patient has extensive lymphadenopathy, will consider biopsy - Discuss with IR, patient will likely need platelet transfusion prior to biopsy. - Consulted Heme-Onc, Appreciate Recomendations GI #Diarrhea with black tarry stool #GI bleed rule out Patient reported multiple episodes of diarrhea, noticed to be black tarry stool, occult blood test in ED was negative, patient has history of antibiotic use recently. History of EGD done 2 years ago however he does not remember the results. Hemoglobin is chronically low difficult to determine if he has anemia secondary to GI bleed or secondary to his chronic pancytopenia. Plan: - Follow stool culture, ova and parasite, C. 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 Cotton Plan: Consult manager spanish Dr. Cotton, continue dialysis inpatient, strict in and out #UTI On examination his urine noticed to be milky white, patient has history of dysuria and frequency for the past 3 days, noticed to have fever Plan: Continue Ceftriaxone, follow urine culture Endocrinology #Severe hypoglycemia #Questionable adrenal insufficiency Patient has history of recurrent episodes of hypoglycemia in previous admissions, and presentation his blood glucose from venous sample was 55, repeats continue to be in the 50s or 40s. Patient was given D50W and a snack however his blood sugar continued to be in the lower side. Plan: - D10 discontinued yesterday, consecutive samples from central line greater than 100 - Continue regular diet - Adrenal insufficiency workup outpatient #History of hypothyroidism Continue levothyroxine 112 mcg Hematology/oncology #Pancytopenia, Patient was found to have recurrent episodes of blood transfusion secondary to severe anemia, low platelets, occasional leukopenia, today his CBC showed hemoglobin of 5.6, platelets of 24, WBCs of 3.0 Bone marrow biopsy and aspiration were taken in 2024 however the sample was inconclusive secondary to not enough sample. Bone marrow biopsy from 2022 is normal Plan: - Patient was transfused 4 units PRBC, follow H&H posttransfusion - Transfusing 1 unit platelet ID #UTI Pending urine culture and blood culture, urinalysis showed WBC more than 17,000 Plan continue ceftriaxone as above #History of osteomyelitis of the left tibia and fibula #History of chronic venous ulcer Patient supposed to finish his IV antibiotic for osteomyelitis in January this year, his wound seems to be clean however there is mild swelling of the left leg CT Scan LLE: Prominent cellulitis left lower extremity, Significant lymphadenopathy left pelvis left groin and proximal thigh, Negative for soft tissue abscess, negative for osteomyelitis Plan: Continue IV antibiotic as above, continue wound care, referral to wound care Hospital Maintenance: FEN: Regular diet DVT ppx: SCDs GI ppx: Protonix BID IV lines: Femoral central line, peripheral lines Servin: None Code status: Full code Dispo: Med/telemetry Case discussed with Attending Dr. Arias. Luis John PGY2 Disclaimer: This note was dictated by speech recognition. Minor errors in energy consultant may be present due to voice recognition software. Attending Provider Attestation/Addendum Patient seen and examined with residents, agree with above. In brief this is a 59-year-old male admitted to the ICU with septic shock secondary to UTI and end- stage renal disease along with hyperglycemia. He has been weaned off of vasopressors. He is tolerating a p.o. diet and is off of his D10 drip. Overall he is much improved yesterday. Will continue antibiotics. Cultures are still pending. Will discuss with IR for biopsy of his lymphadenopathy. He has had a drop in his H&H again today requiring additional transfusion. Will consult GI for anemia with report of black tarry stool. Of note he has had extensive workup in the past any significant findings. He has profound thrombocytopenia that will require platelet transfusion prior to biopsy. He is scheduled for dialysis today with nephrology. Recommendations are appreciated. Case discussed with ICU team Labs, imaging and records reviewed ~37min required for eval, exam, review, intervention, discussion and formulation of POC for this pt
[2025-04-06 13:45] LABS: Stool for WBCs 1+ (Negative)
[2025-04-06] MEDS: EPOETIN ALFA-EPBX INJ 10,000 UNIT/ML VIAL (ESRD) 10000 UNIT SC (14:03)
--- NOTE | 2025-04-06 14:18 | PD.RESCONSUL ---
HPI Data of Consult Requesting Physician: Rosaura Arias MD Admitting Provider: Kimberly Lauren DO Attending Provider: Rosaura Arias MD Primary Care Provider: Shad Cotton MD Consult Narrative Reason for consult: Rule out GI bleed in setting of anemia and melena History of present illness: A 59-year-old male with a past medical history significant for end-stage renal disease on hemodialysis, hypothyroidism, heart failure with preserved ejection fraction, chronic pancytopenia, and cirrhosis was brought in by EMS on 04/04. He was found to be hypotensive at the scene with a blood pressure of 60/40 mmHg and was administered lactated Ringer?s solution en route. On arrival, the patient was noted to be covered in black, tarry stool. In the emergency department, he reported generalized weakness as his primary complaint. Patient was admitted to ICU due to septic shock and severe hypoglycemia. Patient denies hematemesis and abdominal pain. ED Course: - ED vitals:BP 63/38; RR 19; HR 89; 101.3F; O2 sat 98% on room air - ED labs: Hgb 5.6, plt of 2.4, magnesium 0.6, potassium 3.1, serum creatinine 5.4, blood glucose 55, albumin of 1.7; greater than 17,000 WBC, and greater than 200 RBCs on urine analysis; negative FOBT - ED imaging: CXR - prominent vascular congestion - ED tx: Multiple boluses of D50, D10: 4 g of magnesium; Zosyn and vancomycin GI consult requested for evaluation of a declining hemoglobin level and melena to rule out a GI source of blood loss. cc:: cc: Rosaura Arias MD Review of Systems Review of Systems Narrative Review of Systems: All 13 review of systems are negative except at listed above in the HPI. Past Medical History Past Medical History Comments PMH COMMENT: Past medical history: PMH: as above PSHx: AV fistula of L upper extremity Allergies: adhesive tape (rash) Social History: denies tobacco, alcohol and illicit drug use Family History:Mom had emphysema, brother had kidney failure Exam Vital Signs Temp Pulse Resp BP Pulse Ox O2 Del Method O2 Flow Rate 97.2 F 58 L 17 115/56 L 99 Room Air 2 04/06/25 12:45 04/06/25 14:00 04/06/25 14:00 04/06/25 14:00 04/06/25 14:00 04/06/25 12:01 04/05/25 08:00 Narrative Exam General: Awake and in no acute distress. Conversational and non-toxic appearing. HEENT: Normocephalic, atraumatic. Heart: Regular rate and rhythm, no murmurs, Lungs: Clear to auscultation with no wheezing or crackles. Abdomen: Soft, distended, nontender. No guarding or rebound tenderness. Neurologic: Alert and oriented x3, no gross neurological deficit, and patient able to move all 4 extremities. Extremities: 2+ bilateral lower extremity edema Skin: Left lower extremity with bandage, Lower extremities with reddish-brown discoloration and skin thickening, scaling of the skin Results Labs 04/06/25 04:43 04/06/25 04:43 Labs: Short CBC 04/06/25 04/06/25 Range/Units 00:15 04:43 WBC 4.0 (3.8-10.6) Thou/mm3 Hgb 8.3 L 7.6 L (13.5-16.0) g/dL Hct 24.4 L 22.1 L (41.0-53.0) % Plt Count 28 L* (140-440) Thou/mm3 BMP 04/06/25 04:43 Sodium 138 Potassium 4.4 D Chloride 102 Carbon Dioxide 25.9 BUN 41 H Creatinine 7.0 H* D Glucose 129 H Calcium 8.7 Liver Function 04/06/25 Range/Units 04:43 Total Bilirubin 0.4 (0.3-1.2) mg/dL AST 27 (0-34) U/L ALT 9 L (10-49) U/L Alkaline Phosphatase 98 D (46-116) U/L Albumin 2.7 L (3.5-5.0) gm/dL Urine 04/05/25 Range/Units 16:17 Urine Color Yellow (Lt Yel-Yel) Urine Clarity Turbid A (Clear/Hazy) Urine pH 8.5 H (5.0-7.0) Ur Specific [place] 1.008 (1.001-1.035) Urine Protein 2+ A (Neg - Trace) Urine Glucose (UA) Trace (Negative) Quality Measures Quality Measures none Medications Home Medications and Allergies Home Medications ?Medication ?Instructions ?Recorded ?Confirmed ?Type diphenhydramine HCl 25 mg capsule 25 mg PO TID PRN Itching 08/20/22 04/05/25 History (Benadryl) vitamin B comp no.3-folic acid 1 1 tab PO QDAY 08/20/22 04/05/25 History mg-vit C 60 mg-biotin 300 mcg tablet ([facility]) sucroferric oxyhydroxide 500 mg 500 mg PO QID 10/03/22 04/05/25 History chewable tablet (Velphoro) carvedilol 12.5 mg tablet 12.5 mg PO BID 08/04/23 04/05/25 History Held on 02/11/25. Instructions: Resume on 02/17/25. Hold until follow up with primary care physician furosemide 40 mg tablet 40 mg PO QDAY 08/04/23 04/05/25 History levothyroxine 112 mcg tablet 112 mcg PO ACBR 02/10/25 04/05/25 History Allergies Allergy/AdvReac Type Severity Reaction Status Date / Time adhesive tape Allergy Severe Rash Verified 04/04/25 13:15 vancomycin AdvReac Severe Rash Verified 04/05/25 07:58 Visit Medications Acetaminophen (Acetaminophen 325 Mg Tablet) 650 mg PO Q6H PRN PRN Reason: PAIN SCALE 1-3 (mild Stop: 05/04/25 17:39 Acetaminophen (Acetaminophen 325 Mg Tablet) 650 mg PO Q6H PRN PRN Reason: Fever >100.4 Stop: 05/04/25 17:39 Hydrocodone Bitart/Acetaminophen (Hydrocodone/Apap 10/325 Tab) 1 tab PO Q4HR PRN PRN Reason: PAIN SCALE 7-10 (Severe Stop: 04/09/25 17:39 Dextrose (Dextrose 50%-Water Inj 50 Ml Syringe) 25 ml IV Q15MIN PRN PRN Reason: BG 50-70 responsive npo pt Stop: 05/04/25 19:17 Last Admin: 04/04/25 21:00 Dose: 25 ml Dextrose (Dextrose 50%-Water Inj 50 Ml Syringe) 50 ml IV Q15MIN PRN PRN Reason: BG <50 OR BG <70 & pt unresponsive Stop: 05/04/25 19:17 Last Admin: 04/04/25 20:05 Dose: 50 ml Glucagon (Glucagon Inj 1 Mg Vial) 1 mg IM Q15MIN PRN PRN Reason: BG <70, and no IV access Hydrocortisone Sodium Succinate (Hydrocortisone Sod Succ Inj 100 Mg Vial) 50 mg IV BID [facility] Stop: 04/07/25 09:01 Ceftriaxone Sodium/Dextrose (Rocephin/D5w 1gm Iv Premix) 1 gm in 50 mls @ 100 mls/hr IV QDAY [facility] Stop: 04/13/25 10:56 Last Admin: 04/06/25 12:23 Dose: 100 mls/hr Levothyroxine Sodium (Levothyroxine Sodium 112 Mcg Tablet) 112 mcg PO ACBR [facility] Stop: 05/05/25 05:59 Last Admin: 04/06/25 05:29 Dose: 112 mcg Midodrine (Midodrine 5 Mg Tablet) 5 mg PO TID [facility] Stop: 05/05/25 10:59 Last Admin: 04/06/25 14:02 Dose: Not Given Ondansetron HCl (Ondansetron Inj 2 Mg/Ml Inj 2 Ml) 4 mg IVP Q6H PRN; Protocol PRN Reason: NAUSEA OR VOMITING Stop: 05/04/25 17:39 Last Admin: 04/05/25 20:49 Dose: 4 mg Oxycodone/Acetaminophen (Oxycodone/Apap 5/325 Tablet) 1 tab PO Q6H PRN PRN Reason: PAIN SCALE 4-6 (Moderate Stop: 04/09/25 17:39 Last Admin: 04/05/25 03:12 Dose: 1 tab Pantoprazole Sodium (Pantoprazole Inj 40 Mg Vial) 40 mg IVP BID [facility] Stop: 05/04/25 20:59 Last Admin: 04/06/25 09:46 Dose: 40 mg Vitamin B Complex/Vit C/Folic Acid (Vit B12/Vit C/Fa (Nephrovite) Tablet) 1 tab PO QDAY [facility] Stop: 05/04/25 19:29 Last Admin: 04/06/25 09:47 Dose: 1 tab Discontinued Medications Acetaminophen (Acetaminophen 500 Mg Tablet) 1,000 mg PO X1 ONE Stop: 04/04/25 13:47 Last Admin: 04/04/25 14:20 Dose: 1,000 mg Dextrose (Dextrose 50%-Water Inj 50 Ml Syringe) 50 ml IVP X1 ONE Stop: 04/04/25 15:54 Last Admin: 04/04/25 16:03 Dose: 50 ml Epoetin Leonard (Epoetin Leonard-Epbx Inj 10,000 Unit/Ml Vial (Esrd)) 10,000 unit SC X1 ONE Stop: 04/06/25 11:31 Last Admin: 04/06/25 14:03 Dose: 10,000 unit Glucagon (Glucagon Inj 1 Mg Vial) 1 mg IVP X1 ONE Stop: 04/04/25 15:14 Last Admin: 04/04/25 15:18 Dose: 1 mg Glucagon (Glucagon Inj 1 Mg Vial) 1 mg IVP X1 ONE Stop: 04/04/25 15:40 Last Admin: 04/04/25 15:46 Dose: 1 mg Hydrocortisone Sodium Succinate (Hydrocortisone Sod Succ Inj 100 Mg Vial) 100 mg IV X1 ONE Stop: 04/05/25 09:36 Last Admin: 04/05/25 10:58 Dose: 100 mg Hydrocortisone Sodium Succinate (Hydrocortisone Sod Succ Inj 100 Mg Vial) 50 mg IV Q6HR MARIANO Stop: 05/05/25 16:00 Last Admin: 04/06/25 05:29 Dose: 50 mg Sodium Chloride (Ns) 2,466 mls @ 2,466 mls/hr 30 ml/kg infuse over 60 min (2466 ml) IV .Q1H ONE Stop: 04/04/25 14:35 Last Infusion: 04/04/25 14:50 Dose: Infused Piperacillin/Tazobactam/Dextrose (Zosyn) 3.375 gm in 50 mls @ 100 mls/hr IV X1 ONE Stop: 04/04/25 14:15 Last Infusion: 04/04/25 14:55 Dose: Infused Vancomycin HCl 2,000 mg/ (Sodium Chloride) 500 mls @ 120 mls/hr IV X1 ONE Stop: 04/04/25 17:59 Last Infusion: 04/04/25 19:13 Dose: Infused Magnesium Sulfate (Magnesium Sulfate Ivpb) 4 gm in 50 mls @ 12.5 mls/hr IV X1 ONE Stop: 04/04/25 19:29 Last Infusion: 04/05/25 07:00 Dose: Infused Piperacillin/Tazobactam/Dextrose (Zosyn) 3.375 gm in 50 mls @ 12.5 mls/hr IV Q8HR MARIANO Stop: 04/11/25 21:59 Last Infusion: 04/06/25 09:29 Dose: Infused Dextrose/Sodium Chloride (D5-Ns) 1,000 mls @ 100 mls/hr IV .Q10H MARIANO Stop: 05/04/25 17:59 Last Admin: 04/04/25 19:13 Dose: Not Given Dextrose (D10w 1000 Ml) 1,000 mls @ 50 mls/hr IV .Q20H MARIANO Stop: 04/05/25 14:01 Last Infusion: 04/05/25 09:32 Dose: 0 mls/hr Norepinephrine Bitartrate (Levophed In Ns 16mg/250ml) 16 mg in 250 mls @ 6.094 mls/hr IV .Q24H PRN; Protocol PRN Reason: PER PROTOCOL Stop: 05/04/25 19:06 Last Titration: 04/06/25 03:00 Dose: 0 mcg/kg/min, 0 mls/hr Albumin Human (Albuminar-25 Ivpb) 25 gm in 100 mls @ 100 mls/hr IV QDAY MARIANO Stop: 04/07/25 19:06 Last Infusion: 04/05/25 12:00 Dose: Infused Dextrose (D10w) 500 mls @ 50 mls/hr IV .Q10H MARIANO Stop: 05/04/25 19:11 Last Admin: 04/04/25 19:53 Dose: Not Given Magnesium Sulfate (Magnesium Sulfate Ivpb) 4 gm in 50 mls @ 12.5 mls/hr IV X1 ONE Stop: 04/04/25 23:13 Last Infusion: 04/05/25 07:00 Dose: Infused Vancomycin HCl/Dextrose (Vancomycin/D5w 1,250 Mg Ivpb) 250 mls @ 120 mls/hr IV X1 ONE Stop: 04/05/25 16:04 Lidocaine HCl (Lidocaine Hcl 1% 20 Ml Vial) 20 ml INFL X1 ONE Stop: 04/04/25 17:13 Last Admin: 04/04/25 17:40 Dose: 20 ml Midodrine (Midodrine 5 Mg Tablet) 10 mg PO TID MARIANO Stop: 05/05/25 09:29 Last Admin: 04/06/25 07:01 Dose: Not Given Pantoprazole Sodium (Pantoprazole Inj 40 Mg Vial) 40 mg IVP QDAY MARIANO Stop: 04/05/25 09:00 Pharmacy Consult (Vancomycin Pharmacy To Dose 1 Each Each) 1 each IV QDAY PRN PRN Reason: PROTOCOL Stop: 05/05/25 08:59 Assessment & Plan Plan A 59-year-old male with a past medical history significant for end-stage renal disease on hemodialysis, hypothyroidism, heart failure with preserved ejection fraction, chronic pancytopenia, and cirrhosis presented with melena and anemia. #Melena #Anemia #GI bleed rule out - Multiple episodes of melena with chronically low hemoglobin (5.2 --> 8.8 --> 8.9 --> 9.0 --> 8.3 --> 7.6) - Plt 24 --> 33 --> 28 - BUN 41, Cr 7.0, BUN/Cr 6 - FOBT in ED was negative, repeat FOBT (04/06) also negative - Received three transfusions and currently receiving fourth one - Plan - Clear liquid diet then NPO at midnight - Consent obtained for fiberoptic esophagogastroduodenoscopy with possible biopsy, possible therapeutic intervention, under intravenous moderate sedation schedule for tomorrow (04/07/2025) - Continue IV Protonix - Follow posttransfusion H&H #Cirrhosis #Splenomegaly - Based on CT abdomen and pelvis - PT 16 --> 13.0; PTT 46.1 --> 42.7; INR 1.5 --> 1.2 - Plan: cirrhosis workup - pending labs Actin Antibody (IgG) Alpha-1 Antitrypsin YESSICA IFA Screen w/ refl, IFA Ceruloplasmin Copper Mitochondrial Ab w Rflex Titer Hepatitis Acute Panel Iron Panel AFP Non- Patient plan of care was discussed with attending physician, Dr. Azar. Brandy Hinkle DO PGY-1 Attending Provider Attestation/Addendum 59 years old male presented to the hospital with hypotension was found to be covered with dark melanotic stool with a drop in hemoglobin hematocrit Patient examined Laboratory data reviewed Imaging studies reviewed Significant drop in hemoglobin hematocrit in the setting of cirrhotic liver disease Consent obtained for fiberoptic esophagogastroduodenoscopy with possible biopsy possible therapeutic intervention under intravenous moderate sedation N.p.o. midnight tonight except p.o. meds Will follow the patient Thank you very much for the opportunity to participate in the care of this patient
--- NOTE | 2025-04-06 14:20 | ESPR_ITS ---
Documentation for date of: 04/06/25 Subjective Subjective Interval history: Sincere Weaver is 59 yr male with PMH of ESRD on HD MWF, chronic thrombocytopenia and anemia of CKD with recurrent biweekly blood transfusions, hypothyroidism, HFpEF, chronic left leg ulcer with bilateral venous insufficiency and stasis dermatitis who presented to ED on 04/04/25 due generalized weakness. He was in the ED several days ago for blood transfusion, he was also found to have low glucose levels around 20-30 when in the ED. Patient was eventually upgraded to ICU due to low MAP in the 40s. Currently on pressor support and hypoglycemia protocol. CT abdomen pelvis showed pulmonary nodules, cirrhosis, splenomegaly LAD. There is concern for cancer. Patient has also lost over 100 pounds in the past year. HD access site through left upper extremity AV fistula. Last session completed this past Thursday. BP soft 89/41. Hemoglobin 9.0, MCV 83, platelets 33, sodium 139, potassium 3.7, BUN 30, creatinine 5.8, GFR 11, elevated lactic acid 2.8. UA positive for UTI. He was started on vancomycin/Zosyn. 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 Patient denies any chest pain, shortness of breath, headache, nausea or vomiting. Does have some lower extremity pain due to his dermatitis and ulcer. 04/06/2025 Patient was seen and examined. Patient does not have acute concerns/complaints. Patient's skin looks much less red after dc'ing the vancomycin. Planning on dialysis today and plan to give patient 1 unit RBC's. Notable labs of Hgb 7.6, Plt 28, PT 13.0, APTT 42.7, sodium 138, potassium 4.4, BUN 41, Cr 7.0, GFR 8, glucose 129, Phos 4.3, Mag 2.1.Patient denies chest pain shortness of breath, nausea, vomiting. Continues to have some lower extremity pain due to his dermatitis and ulcer. Exam Vital Signs Temp Pulse Resp BP Pulse Ox O2 Del Method O2 Flow Rate 97.2 F 58 L 17 115/56 L 99 Room Air 2 04/06/25 12:45 04/06/25 14:00 04/06/25 14:00 04/06/25 14:00 04/06/25 14:00 04/06/25 12:01 04/05/25 08:00 Narrative Exam General: middle age male, unkempt, No acute distress, cooperative HEENT: NCAT, No JVD noted. Mucosa moist. Pupils are equal and reactive to light bilaterally Cardiovascular: Normal S1 and S2. Regular rate and rhythm. Respiratory: Lungs are clear to auscultation bilaterally. No wheezing or crackles heard. Abdomen: Soft, nontender, not distended, normal bowel sounds. : ang[place] in place Skin: Warm to touch, dry, no rashes noted, Large left lower extremity ulcer, AV fistula ++ Musculoskeletal: No gross injuries. Able to move all 4 extremities. B/L LE 2+ pitting edema, Chronic venous stasis dermatitis with warmth, mild (improved) bilateral hand erythema. Neuro: Alert and oriented x3. No focal neuro deficits. Psych: Normal affect and mood Objective Labs 04/06/25 04:43 04/06/25 04:43 Labs: Laboratory Results - last 24 hr 04/04/25 04/05/25 04/05/25 13:51 15:25 16:17 WBC RBC Hgb Hct MCV MCH MCHC RDW Std Deviation Plt Count Neut % (Auto) Lymph % (Auto) [place] % (Auto) Eos % (Auto) Baso % (Auto) Neut # (Auto) Lymph # (Auto) [place] # (Auto) Eos # (Auto) Baso # (Auto) Immature Gran # (Auto) Absolute Nucleated RBC Immature Gran % Nucleated RBC % PT INR APTT Sodium Potassium Chloride Carbon Dioxide Anion Gap BUN Creatinine Estim Creat Clear Calc eGFR BUN/Creatinine Ratio Glucose Calculated Osmolality Lactic Acid 2.7 H Calcium Corrected Calcium Phosphorus Magnesium Total Bilirubin AST ALT Alkaline Phosphatase Total Protein Albumin Globulin Albumin/Globulin Ratio Ur Collection Type Clean Catch Urine Color Yellow Urine Clarity Turbid A Urine pH 8.5 H Ur Specific [place] 1.008 Urine Protein 2+ A Urine Glucose (UA) Trace Urine Ketones Negative Urine Blood 3+ A Urine Nitrite Negative Urine Bilirubin Negative Urine Urobilinogen (Auto) Negative Ur Leukocyte Esterase Positive Urine RBC 272 H Urine WBC 1379 H Ur Squamous Epith Cells 0 Urine Bacteria 1+ A Stool for White Cells Random Vancomycin Misc Test Result Blood Type O Positive Antibody Screen NEGATIVE Crossmatch See Detail Blood Bank Wristband ID Yes Blood Bank Comment PLATP Ready 04/05/25 04/06/25 04/06/25 19:00 00:15 04:43 WBC 4.0 RBC 2.66 L Hgb 8.3 L 7.6 L Hct 24.4 L 22.1 L MCV 83 MCH 28.6 MCHC 34.4 RDW Std Deviation 46.1 H Plt Count 28 L* Neut % (Auto) 86 H Lymph % (Auto) 7 L [place] % (Auto) 4 Eos % (Auto) 2 Baso % (Auto) 0 Neut # (Auto) 3.5 Lymph # (Auto) 0.3 L [place] # (Auto) 0.2 Eos # (Auto) 0.1 Baso # (Auto) 0.0 Immature Gran # (Auto) 0.02 H Absolute Nucleated RBC 0.00 Immature Gran % 1 H Nucleated RBC % 0 PT 13.0 H D INR 1.2 APTT 42.7 H Sodium 138 Potassium 4.4 D Chloride 102 Carbon Dioxide 25.9 Anion Gap 10 BUN 41 H Creatinine 7.0 H* D Estim Creat Clear Calc 16.6 L eGFR 8 L* BUN/Creatinine Ratio 6 L Glucose 129 H Calculated Osmolality 287 Lactic Acid 2.7 H Calcium 8.7 Corrected Calcium 9.7 Phosphorus 4.3 Magnesium 2.1 Total Bilirubin 0.4 AST 27 ALT 9 L Alkaline Phosphatase 98 D Total Protein 5.7 Albumin 2.7 L Globulin 3.0 Albumin/Globulin Ratio 0.9 L Ur Collection Type Urine Color Urine Clarity Urine pH Ur Specific [place] Urine Protein Urine Glucose (UA) Urine Ketones Urine Blood Urine Nitrite Urine Bilirubin Urine Urobilinogen (Auto) Ur Leukocyte Esterase Urine RBC Urine WBC Ur Squamous Epith Cells Urine Bacteria Stool for White Cells Random Vancomycin 15.1 Misc Test Result Platelets confirmed Blood Type Antibody Screen Crossmatch Blood Bank Wristband ID Blood Bank Comment 04/06/25 11:30 WBC RBC Hgb Hct MCV MCH MCHC RDW Std Deviation Plt Count Neut % (Auto) Lymph % (Auto) [place] % (Auto) Eos % (Auto) Baso % (Auto) Neut # (Auto) Lymph # (Auto) [place] # (Auto) Eos # (Auto) Baso # (Auto) Immature Gran # (Auto) Absolute Nucleated RBC Immature Gran % Nucleated RBC % PT INR APTT Sodium Potassium Chloride Carbon Dioxide Anion Gap BUN Creatinine Estim Creat Clear Calc eGFR BUN/Creatinine Ratio Glucose Calculated Osmolality Lactic Acid Calcium Corrected Calcium Phosphorus Magnesium Total Bilirubin AST ALT Alkaline Phosphatase Total Protein Albumin Globulin Albumin/Globulin Ratio Ur Collection Type Urine Color Urine Clarity Urine pH Ur Specific [place] Urine Protein Urine Glucose (UA) Urine Ketones Urine Blood Urine Nitrite Urine Bilirubin Urine Urobilinogen (Auto) Ur Leukocyte Esterase Urine RBC Urine WBC Ur Squamous Epith Cells Urine Bacteria Stool for White Cells 1+ A Random Vancomycin Misc Test Result Blood Type Antibody Screen Crossmatch Blood Bank Wristband ID Blood Bank Comment Quality Measures Quality Measures VTE prophylaxis Assessment & Plan Assessment Current Active Medications: Generic Name Dose Route Start Last Admin Trade Name Freq PRN Reason Stop Dose Admin Acetaminophen 650 mg 04/04/25 17:40 Acetaminophen 325 Mg Tablet PO 05/04/25 17:39 Q6H PRN PAIN SCALE 1-3 (mild Acetaminophen 650 mg 04/04/25 17:40 Acetaminophen 325 Mg Tablet PO 05/04/25 17:39 Q6H PRN Fever >100.4 Hydrocodone Bitart/Acetaminophen 1 tab 04/04/25 17:40 Hydrocodone/Apap 10/325 Tab PO 04/09/25 17:39 Q4HR PRN PAIN SCALE 7-10 (Severe Dextrose 25 ml 04/04/25 19:18 04/04/25 21:00 Dextrose 50%-Water Inj 50 Ml Syringe IV 05/04/25 19:17 25 ml Q15MIN PRN Administration BG 50-70 responsive npo pt Dextrose 50 ml 04/04/25 19:18 04/04/25 20:05 Dextrose 50%-Water Inj 50 Ml Syringe IV 05/04/25 19:17 50 ml Q15MIN PRN Administration BG <50 OR BG <70 & pt unresponsive Glucagon 1 mg 04/04/25 19:18 Glucagon Inj 1 Mg Vial IM Q15MIN PRN BG <70, and no IV access Hydrocortisone Sodium Succinate 50 mg 04/06/25 21:00 Hydrocortisone Sod Succ Inj 100 Mg Vial IV 04/07/25 09:01 BID MARIANO Ceftriaxone Sodium/Dextrose 1 gm in 50 mls @ 100 mls/hr 04/06/25 10:57 04/06/25 12:23 Rocephin/D5w 1gm Iv Premix IV 04/13/25 10:56 100 mls/hr QDAY MARIANO Administration Levothyroxine Sodium 112 mcg 04/05/25 06:00 04/06/25 05:29 Levothyroxine Sodium 112 Mcg Tablet PO 05/05/25 05:59 112 mcg ACBR MARIANO Administration Midodrine 5 mg 04/05/25 11:00 04/06/25 14:02 Midodrine 5 Mg Tablet PO 05/05/25 10:59 Not Given TID [facility] Ondansetron HCl 4 mg 04/04/25 17:40 04/05/25 20:49 Ondansetron Inj 2 Mg/Ml Inj 2 Ml IVP 05/04/25 17:39 4 mg Q6H PRN Administration NAUSEA OR VOMITING Protocol Oxycodone/Acetaminophen 1 tab 04/04/25 17:40 04/05/25 03:12 Oxycodone/Apap 5/325 Tablet PO 04/09/25 17:39 1 tab Q6H PRN Administration PAIN SCALE 4-6 (Moderate Pantoprazole Sodium 40 mg 04/04/25 21:00 04/06/25 09:46 Pantoprazole Inj 40 Mg Vial IVP 05/04/25 20:59 40 mg BID MARIANO Administration Vitamin B Complex/Vit C/Folic Acid 1 tab 04/04/25 19:30 04/06/25 09:47 Vit B12/Vit C/Fa (Nephrovite) Tablet PO 05/04/25 19:29 1 tab QDAY MARIANO Administration Plan Sincere Weaver is 59 yr male with PMH of ESRD on HD MWF, chronic thrombocytopenia and anemia of CKD with recurrent biweekly blood transfusions, hypothyroidism, HFpEF, chronic left leg ulcer with bilateral venous insufficiency and stasis dermatitis who presented to ED on 04/04/25 due generalized weakness. Nephrology was consulted to resume inpatient dialysis. #ESRD on HD M/W/F #Anemia of chronic disease #Recurrent blood transfusions HD access site through left upper extremity AV fistula. Last session completed this past Thursday. BP soft 89/41. Hgb 7.6, Plt 28, PT 13.0, APTT 42.7, sodium 138, potassium 4.4, BUN 41, Cr 7.0, GFR 8, glucose 129, Phos 4.3, Mag 2.1 this morning. HD through AV fistula. -planning for dialysis today -planning to give 1 unit of RBC's -renally dose medications -renal diet -discontinued vancomycin due to red man syndrome reaction in past Persistent hypoglycemia Combined septic and hypovolemic shock Significant UTI Acute on chronic anemia and thrombocytopenia Neutropenia Significant metabolic abnormalities Lactic acidosis settings of sepsis and anemia HFpEF 55-60% Diarrhea, likely GI bleed given history above Bilateral lower extremity cellulitis Large left lower extremity ulcer Osteomyelitis of left lower extremity Possible metastatic neoplasm//intra-abdominal lymphadenopathy -management continued by ICU team The patient's management plan was discussed with my attending physician Dr. Cotton. Artur Coreas MD PGY-1 Attending Provider Attestation/Addendum Patient seen and examined with resident physician Dr. Coreas. Note reviewed, agree with findings and recommendations. Patient admitted with weakness, symptomatic hypoglycemia. Blood sugars better. Off D10 drip. Patient currently seen on dialysis. Tolerating dialysis without any problems. Hemodialysis for 3 hours, 2K, ultrafiltration 2-3 L, Epogen 6000, no heparin ordered. Plan of care discussed with the dialysis nurse. Please see dialysis flowsheet for further details. Blood transfusion, platelet pheresis ordered with dialysis. Off vancomycin. Redness seems to be better. Clinically he seems to be better. Off pressors.
--- NOTE | 2025-04-06 15:03 | ESPR_ITS ---
<Statement entered by Laney Rock MD - 04/07/25 10:25> I have reviewed the note and agree with the resident's assessment & plan with exceptions as below. I have personally reviewed labs, imaging, home meds/prior records, examined the patient, formulated and discussed management plan with the IM team. Pt examined at bedside today, he is currently an ICU downgrade. He is currently getting dialysis. He is pending an oncology consult due to concern for malignancy including lymphoma as he has multiple enlarged lymph nodes and pulmonary nodules, pending recs from Dr. Epperson. Pt to get EGD by Dr. Azar, on CLQ currently. Will continue with current medicines and management. Repeat hematology, electrolytes and chemistry in AM. Laney Rock, PGY-2 Internal Medicine Documentation for date of: 04/06/25 Subjective Subjective Interval history: Patient seen at bedside. Patient is receiving 1 unit of packed RBCs today for low hemoglobin. Patient will have dialysis today following that. Patient is not complaining of any chest pain, shortness of breath, abdominal pain, nausea, vomiting. Exam Vital Signs Temp Pulse Resp BP Pulse Ox O2 Del Method O2 Flow Rate 97.6 F 57 L 18 114/57 L 98 Room Air 2 04/06/25 14:44 04/06/25 14:44 04/06/25 14:44 04/06/25 14:44 04/06/25 14:44 04/06/25 12:01 04/05/25 08:00 Narrative Exam General:AO X3. Conversing well. Nontoxic-appearing. HEENT: Normocephalic, atraumatic, mucous membranes moist. Heart: Regular rate and rhythm, no murmurs. Lungs: Good air entry bilaterally, no wheezing or crackles. Abdomen: Soft, nondistended, nontender, positive bowel sounds. ?No guarding or rebound tenderness. Neurologic: no gross neurological deficit, and patient able to move all 4 extremities. Extremities: 2+ bilateral lower extremity edema, chronic venous stasis changes, bilateral petechiae seen upper extremities, cool fingertips. Skin: Left lower extremity wound with granulation tissue some serosanguineous oozing Objective Labs 04/07/25 05:31 04/07/25 05:31 Labs: Laboratory Results - last 24 hr 04/04/25 04/05/25 04/05/25 13:51 15:25 16:17 WBC RBC Hgb Hct MCV MCH MCHC RDW Std Deviation Plt Count Neut % (Auto) Lymph % (Auto) [place] % (Auto) Eos % (Auto) Baso % (Auto) Neut # (Auto) Lymph # (Auto) [place] # (Auto) Eos # (Auto) Baso # (Auto) Immature Gran # (Auto) Absolute Nucleated RBC Immature Gran % Nucleated RBC % PT INR APTT Sodium Potassium Chloride Carbon Dioxide Anion Gap BUN Creatinine Estim Creat Clear Calc eGFR BUN/Creatinine Ratio Glucose Calculated Osmolality Lactic Acid 2.7 H Calcium Corrected Calcium Phosphorus Magnesium Total Bilirubin AST ALT Alkaline Phosphatase Total Protein Albumin Globulin Albumin/Globulin Ratio Ur Collection Type Clean Catch Urine Color Yellow Urine Clarity Turbid A Urine pH 8.5 H Ur Specific [place] 1.008 Urine Protein 2+ A Urine Glucose (UA) Trace Urine Ketones Negative Urine Blood 3+ A Urine Nitrite Negative Urine Bilirubin Negative Urine Urobilinogen (Auto) Negative Ur Leukocyte Esterase Positive Urine RBC 272 H Urine WBC 1379 H Ur Squamous Epith Cells 0 Urine Bacteria 1+ A Stool for White Cells Random Vancomycin Misc Test Result Blood Type O Positive Antibody Screen NEGATIVE Crossmatch See Detail Blood Bank Wristband ID Yes Blood Bank Comment PLATP Ready 04/05/25 04/06/25 04/06/25 19:00 00:15 04:43 WBC 4.0 RBC 2.66 L Hgb 8.3 L 7.6 L Hct 24.4 L 22.1 L MCV 83 MCH 28.6 MCHC 34.4 RDW Std Deviation 46.1 H Plt Count 28 L* Neut % (Auto) 86 H Lymph % (Auto) 7 L [place] % (Auto) 4 Eos % (Auto) 2 Baso % (Auto) 0 Neut # (Auto) 3.5 Lymph # (Auto) 0.3 L [place] # (Auto) 0.2 Eos # (Auto) 0.1 Baso # (Auto) 0.0 Immature Gran # (Auto) 0.02 H Absolute Nucleated RBC 0.00 Immature Gran % 1 H Nucleated RBC % 0 PT 13.0 H D INR 1.2 APTT 42.7 H Sodium 138 Potassium 4.4 D Chloride 102 Carbon Dioxide 25.9 Anion Gap 10 BUN 41 H Creatinine 7.0 H* D Estim Creat Clear Calc 16.6 L eGFR 8 L* BUN/Creatinine Ratio 6 L Glucose 129 H Calculated Osmolality 287 Lactic Acid 2.7 H Calcium 8.7 Corrected Calcium 9.7 Phosphorus 4.3 Magnesium 2.1 Total Bilirubin 0.4 AST 27 ALT 9 L Alkaline Phosphatase 98 D Total Protein 5.7 Albumin 2.7 L Globulin 3.0 Albumin/Globulin Ratio 0.9 L Ur Collection Type Urine Color Urine Clarity Urine pH Ur Specific [place] Urine Protein Urine Glucose (UA) Urine Ketones Urine Blood Urine Nitrite Urine Bilirubin Urine Urobilinogen (Auto) Ur Leukocyte Esterase Urine RBC Urine WBC Ur Squamous Epith Cells Urine Bacteria Stool for White Cells Random Vancomycin 15.1 Misc Test Result Platelets confirmed Blood Type Antibody Screen Crosscatch Blood [facility] Blood Bank Comment 04/06/25 11:30 WBC RBC Hgb Hct MCV MCH MCHC RDW Std Deviation Plt Count Neut % (Auto) Lymph % (Auto) [place] % (Auto) Eos % (Auto) Baso % (Auto) Neut # (Auto) Lymph # (Auto) [place] # (Auto) Eos # (Auto) Baso # (Auto) Immature Gran # (Auto) Absolute Nucleated RBC Immature Gran % Nucleated RBC % PT INR APTT Sodium Potassium Chloride Carbon Dioxide Anion Gap BUN Creatinine Estim Creat Clear Calc eGFR BUN/Creatinine Ratio Glucose Calculated Osmolality Lactic Acid Calcium Corrected Calcium Phosphorus Magnesium Total Bilirubin AST ALT Alkaline Phosphatase Total Protein Albumin Globulin Albumin/Globulin Ratio Ur Collection Type Urine Color Urine Clarity Urine pH Ur Specific [place] Urine Protein Urine Glucose (UA) Urine Ketones Urine Blood Urine Nitrite Urine Bilirubin Urine Urobilinogen (Auto) Ur Leukocyte Esterase Urine RBC Urine WBC Ur Squamous Epith Cells Urine Bacteria Stool for White Cells 1+ A Random Vancomycin Misc Test Result Blood Type Antibody Screen Crosscatch Blood [facility] Blood Bank Comment Quality Measures Quality Measures VTE prophylaxis Assessment & Plan Assessment Current Active Medications: Generic Name Dose Route Start Last Admin Trade Name Freq PRN Reason Stop Dose Admin Acetaminophen 650 mg 04/04/25 17:40 Acetaminophen 325 Mg Tablet PO 05/04/25 17:39 Q6H PRN PAIN SCALE 1-3 (mild Acetaminophen 650 mg 04/04/25 17:40 Acetaminophen 325 Mg Tablet PO 05/04/25 17:39 Q6H PRN Fever >100.4 Hydrocodone Bitart/Acetaminophen 1 tab 04/04/25 17:40 Hydrocodone/Apap 10/325 Tab PO 04/09/25 17:39 Q4HR PRN PAIN SCALE 7-10 (Severe Dextrose 25 ml 07/15/25 19:18 04/04/25 21:00 Dextrose 50%-Water Inj 50 Ml Syringe IV 05/04/25 19:17 25 ml Q15MIN PRN Administration BG 50-70 responsive npo pt Dextrose 50 ml 04/04/25 19:18 04/04/25 20:05 Dextrose 50%-Water Inj 50 Ml Syringe IV 05/04/25 19:17 50 ml Q15MIN PRN Administration BG <50 OR BG <70 & pt unresponsive Glucagon 1 mg 04/04/25 19:18 Glucagon Inj 1 Mg Vial IM Q15MIN PRN BG <70, and no IV access Hydrocortisone Sodium Succinate 50 mg 04/06/25 21:00 Hydrocortisone Sod Succ Inj 100 Mg Vial IV 04/07/25 09:01 BID MARIANO Ceftriaxone Sodium/Dextrose 1 gm in 50 mls @ 100 mls/hr 04/06/25 10:57 04/06/25 12:23 Rocephin/D5w 1gm Iv Premix IV 04/13/25 10:56 100 mls/hr QDAY MARIANO Administration Levothyroxine Sodium 112 mcg 04/05/25 06:00 04/06/25 05:29 Levothyroxine Sodium 112 Mcg Tablet PO 05/05/25 05:59 112 mcg ACBR MARIANO Administration Midodrine 5 mg 04/05/25 11:00 04/06/25 14:02 Midodrine 5 Mg Tablet PO 05/05/25 10:59 Not Given TID MARIANO Ondansetron HCl 4 mg 04/04/25 17:40 04/05/25 20:49 Ondansetron Inj 2 Mg/Ml Inj 2 Ml IVP 05/04/25 17:39 4 mg Q6H PRN Administration NAUSEA OR VOMITING Protocol Oxycodone/Acetaminophen 1 tab 04/04/25 17:40 04/05/25 03:12 Oxycodone/Apap 5/325 Tablet PO 04/09/25 17:39 1 tab Q6H PRN Administration PAIN SCALE 4-6 (Moderate Pantoprazole Sodium 40 mg 04/04/25 21:00 04/06/25 09:46 Pantoprazole Inj 40 Mg Vial IVP 05/04/25 20:59 40 mg BID AMRIANO Administration Vitamin B Complex/Vit C/Folic Acid 1 tab 04/04/25 19:30 04/06/25 09:47 Vit B12/Vit C/Fa (Nephrovite) Tablet PO 05/04/25 19:29 1 tab QDAY MARIANO Administration Plan Assessment: 59-year-old male patient with past medical history of ESRD on hemodialysis (MWF) follows Dr. Cotton, hypothyroidism, HFpEF, chronic left leg ulcer, questionable bilateral venous insufficiency, history of osteomyelitis, chronic pancytopenia, presented to the ED due to generalized weakness for 3 days. Patient was upgraded to the ICU secondary to septic shock and severe hypoglycemia. Patient has been downgraded from ICU and admitted to Telemetry for management of ongoing issues. #Distributive shock most likely septic secondary to severe UTI, resolved On presentation patient was found to have MAP on the 30s, was resuscitated with 2.4 L of fluids, 1 unit of blood, his blood pressure continued to have MAP below 65. Lactic acid 3.1, UA more than 17,000 WBCs Delayed capillary refill more than 3 seconds, warm skin. Plan: - Weaned off Levophed earlier this morning - Continue midodrine 5 mg 3 times daily - Zosyn (04/04 to 04/06) ---> Ceftriaxone (04/06- #HFpEF 55 to 60% in December 2024 #Mild aortic stenosis EHO December 2024 showed ejection fraction of 55 to 60%, however patient only reported using Lasix as he does not produce regular amount of urine secondary to his renal failure. Plan: -Continue to monitor urine output closely, strict ins and outs -Continue Hemodialysis inpatient #Bilateral pulmonary nodules #Pulmonary artery hypertension CT chest abdomen pelvis shows pulmonary arterial hypertension, 10 subcentimeter bilateral pulmonary nodules, consider early pulmonary nodular metastatic disease, negative for pneumonia. Plan: - Patient has extensive lymphadenopathy, will consider biopsy - Discuss with IR, patient will likely need platelet transfusion prior to biopsy. - Consulted Heme-Onc, Appreciate Recomendations #Diarrhea with black tarry stool #GI bleed rule out Patient reported multiple episodes of diarrhea, noticed to be black tarry stool, occult blood test in ED was negative, patient has history of antibiotic use recently. History of EGD done 2 years ago however he does not remember the results. Hemoglobin is chronically low difficult to determine if he has anemia secondary to GI bleed or secondary to his chronic pancytopenia. Plan: - Follow stool culture, ova and parasite, C. 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 Cotton Plan: Consult collar worker Dr. Cotton, continue dialysis inpatient, strict in and out #UTI On examination his urine noticed to be milky white, patient has history of dysuria and frequency for the past 3 days, noticed to have fever Plan: Continue Zosyn, follow urine culture, repeat urinalysis #Severe hypoglycemia #Questionable adrenal insufficiency Patient has history of recurrent episodes of hypoglycemia in previous admissions, and presentation his blood glucose from venous sample was 55, repeats continue to be in the 50s or 40s. Patient was given D50W and a snack however his blood sugar continued to be in the lower side. Plan: - We will discontinue D10, consecutive samples from central line greater than 100 - Continue regular diet - Started on stress dose steroids for underlying distributive shock #History of hypothyroidism Continue levothyroxine 112 mcg #Pancytopenia, Patient was found to have recurrent episodes of blood transfusion secondary to severe anemia, low platelets, occasional leukopenia, today his CBC showed hemoglobin of 5.6, platelets of 24, WBCs of 3.0 Bone marrow biopsy and aspiration were taken in 2023 however the sample was inconclusive secondary to not enough sample. Bone marrow biopsy from 2022 is normal Plan: - Patient was transfused 3 units PRBC, follow H&H at midnight - Hold platelets 1 unit, will consider transfusing prior to biopsy #UTI Pending urine culture and blood culture, urinalysis showed WBC more than 17,000 Plan continue Zosyn as above #History of osteomyelitis of the left tibia and fibula #History of chronic venous ulcer Patient supposed to finish his IV antibiotic for osteomyelitis in January this year, his wound seems to be clean however there is mild swelling of the left leg CT Scan LLE: Prominent cellulitis left lower extremity, Significant lymphadenopathy left pelvis left groin and proximal thigh, Negative for soft tissue abscess, negative for osteomyelitis Plan: Continue IV antibiotic as above, continue wound care, referral to wound care Health Maintenance: Diet: Regular diet GI prophylaxis: Protonix BID DVT prophylaxis: SCDs Antibiotics: Ceftriaxone CODE STATUS: Full code Disposition: Telemetry Case discussed with my attending Dr. Sharif, and senior resident, Dr. Shweta Escamilla MD PGY-1 Attending Provider Attestation/Addendum Patient initially admitted for septic shock status post vasopressor treatment. He was found to have UTI. He will receive PRBC transfusion. He has history of GI bleeding. Patient has cirrhosis and pancytopenia. Discussed with housestaff. Follow H&H.
[2025-04-06 17:04] LABS: Iron 82 mcg/dL (65-175); Percent Iron Saturation 68 % (20-55); Total Iron Binding Capacity 120 mcg/dL (250-425); Unsaturated Iron Binding 38 (225-295)
[2025-04-06 17:42] LABS: AFP Non-Pregnant < 1.30 ng/mL (<8.10); Hepatitis A Antibody IgM Non Reactive (Non React); Hepatitis B Core Antibody IgM Non Reactive (Non React); Hepatitis B Surface Antigen Non Reactive (Non React); Hepatitis C Antibody Non Reactive (Non React)
[2025-04-07] VITALS (20 sets, daily range): BP systolic 90–126; BP diastolic 45–81; PULSE 50–99; RESP 13–22; TEMP 35.9–37.1; O2SAT 90–100; BMI 37.1
[2025-04-07] MEDS: MIDODRINE 5 MG TABLET PO ×3 (05:22→20:58)
[2025-04-07] MEDS: LEVOTHYROXINE SODIUM 112 MCG TABLET PO (05:23)
[2025-04-07 06:24] LABS: Basophils # (Auto) 0.0 Thou/mm3 (0.0-0.2); Basophils % (Auto) 0 % (0-2.5); Eosinophils # (Auto) 0.2 Thou/mm3 (0.0-0.5); Eosinophils % (Auto) 7 % (0-10); Hematocrit 24.7 % (41.0-53.0); Immature Granulocytes Auto 0.01 Thou/mm3 (0.00-0.00); Lymphocytes # (Auto) 0.2 Thou/mm3 (1.0-4.8); Lymphocytes % (Auto) 8 % (10-50); Mean Corpuscular HGB Conc 33.6 g/dl (31.0-37.0); Mean Corpuscular Hemoglobin 28.6 pg (25.0-35.0); Mean Corpuscular Volume 85 fL (80-100); Monocytes # (Auto) 0.1 Thou/mm3 (0.0-0.8); Monocytes % (Auto) 4 % (0-12); Neutrophils # (Auto) 2.3 Thou/mm3 (1.8-7.7); Neutrophils % (Auto) 81 % (37-80); Nucleated Red Blood Cell # 0.00 Thou/mm3 (0.00-0.00); Nucleated Red Blood Cell % 0 /100 WBC (0); RDW Standard Deviation 46.9 fL (35.1-43.9); Red Blood Count 2.90 Miln/mm3 (4.50-5.90)
[2025-04-07 06:41] LABS: Partial Thromboplastin Time 40.0 Seconds (22.0-36.0)
[2025-04-07 06:49] LABS: Hemoglobin 8.3 g/dL (13.5-16.0); Platelet Count 27 Thou/mm3 (140-440)
[2025-04-07 06:50] LABS: White Blood Count 2.9 Thou/mm3 (3.8-10.6)
[2025-04-07 07:00] LABS: Alanine Aminotransferase 25 U/L (10-49); Albumin, Serum 2.8 gm/dL (3.5-5.0); Albumin/Globulin Ratio 0.9 (1.2-2.2); Alkaline Phosphatase 152 U/L (46-116); Anion Gap 8 (7-16); Aspartate Amino Transferase 48 U/L (0-34); BUN/Creatinine Ratio 5 Ratio (12-20); Bilirubin,Total 0.7 mg/dL (0.3-1.2); Blood Urea Nitrogen 26 mg/dL (9-23); Calcium 8.7 mg/dL (8.3-10.6); Calcium (Corrected) 9.7 mg/dL (8.5-10.1); Carbon Dioxide 27.4 mMol/L (20.0-31.0); Chloride 103 mMol/L (98-107); Creatinine (Component) 5.1 mg/dL (0.6-1.3); Estimated Creatinine Clearance 22.8 mL/min (>60); Globulin 3.0 gm/dL (2.3-3.5); Glucose 102 mg/dL (74-106); Magnesium 2.1 mg/dL (1.6-2.6); Osmolality,Calculated 280 (275-295); Phosphorous 3.5 mg/dL (2.4-5.1); Potassium 3.7 mMol/L (3.4-5.1); Sodium 138 mMol/L (136-145); Total Protein 5.8 gm/dL (5.7-8.2); eGFR 12 See Note
--- NOTE | 2025-04-07 07:33 | ESCONSULT_ITS ---
RE: ERICK WARNER : 1965 DATE OF CONSULTATION: 04/06/2025 REFERRING PHYSICIAN: Dr. Kevin Hinds and Dr. Luis John. REASON FOR CONSULTATION: 1. Thrombocytopenia and anemia. 2. Lymphadenopathy. HISTORY OF PRESENT ILLNESS: Mr. Warner is a 59-year-old gentleman with past medical history of renal failure, on home dialysis, on Thursday, Thursday, and Thursday. Currently he is having a chronic thrombocytopenia and anemia of chronic kidney disease. He has a history of biweekly blood transfusion, hypothyroidism, chronic left leg ulcer, bilateral venous insufficiency and venous stasis dermatitis. He presented to the emergency room because of generalized weakness. He mentioned that he was having several days of increasing worsening generalized weakness beyond baseline associated with dysuria with several episodes of watery diarrhea started the day before admission. He was also found to have a urosepsis. He had a CT scan done, which showed 10 subcentimeter bilateral pulmonary nodules. Consider early pulmonary nodular metastatic disease, significant abdominopelvic lymphadenopathy, metastatic lymphadenopathy, Hodgkin disease versus non-Hodgkin lymphoma was in differential and significant splenomegaly and liver cirrhosis. Because of this lymphadenopathy, this consultation is obtained. PAST MEDICAL HISTORY: He has past medical history as mentioned above. He has a renal failure with a fistula at his left upper extremities. FAMILY HISTORY: Irrelevant. ALLERGIES: PATIENT IS ALLERGIC TO ADHESIVE TAPE. MEDICATIONS: Per record. SOCIAL HISTORY: Nonsmoker, nondrinker. PHYSICAL EXAMINATION: General: He is alert. He is afebrile complaining of itching at the moment, not in any apparent distress. Neck: Supple. There is no JVD or palpable mass. Lungs: There is good air entry bilaterally. They are clear to auscultation. Heart: Regular with murmur. Abdomen: Soft. Bowel sounds are present. It is obese. Extremities: More than 3+ pitting edema with ulceration and dermatitis because of the stasis. LABORATORY DATA: His blood work done today has a WBC count of 4, hemoglobin 7.6, hematocrit 22.1, and platelet count of 28,000. His PT is 13, INR is 1.2 and aPTT is 42.7 and they are both elevated. His sodium is 138, potassium 4.4, chloride 102, BUN 41, creatinine 7.0, GFR is 8. Lactic acid is 2.7, calcium is 9.7, serum iron is 82, total protein is 5.7, albumin 2.7. IMAGING: A CT scan of the abdomen showed at least 10 subcentimeter bilateral pulmonary nodules. Consider early pulmonary nodule metastatic disease, splenomegaly, significant abdominal and pelvic lymphadenopathy. ASSESSMENT AND PLAN: The resident mentioned to me that they want to do CT guided biopsy. If they want to do that, then the patient can have a platelet transfusion at least half an hour prior to the procedure. He also has elevated PT and aPTT. I will follow this patient with you and make recommendation accordingly. I thank you, Dr. John, for letting me participate in the care of this interesting patient. If you have any questions, please feel free to contact me. DT: 17:25:49 TT: 18:22:00 Ref: [id number] - TID: [id number] MTDD
[2025-04-07 07:39] LABS: Slide Review Platelets confirmed
[2025-04-07] MEDS: VIT B12/Vit C/FA (Nephrovite) TABLET 1 TAB PO (08:11)
[2025-04-07] MEDS: HYDROCORTISONE SOD SUCC INJ 100 MG VIAL 50 MG IV (08:11)
[2025-04-07] MEDS: PANTOPRAZOLE 40 MG TABLET PO ×2 (08:11→20:58)
[2025-04-07] MEDS: cefTRIAXone/D5w 1gm IV premix 1 GM/50 ML BAG IV (08:11)
--- NOTE | 2025-04-07 09:06 | PD.RESPRO ---
Documentation for date of: 04/07/25 Subjective Subjective Interval history: Sincere Weaver is 59 yr male with PMH of ESRD on HD MWF, chronic thrombocytopenia and anemia of CKD with recurrent biweekly blood transfusions, hypothyroidism, HFpEF, chronic left leg ulcer with bilateral venous insufficiency and stasis dermatitis who presented to ED on 04/04/25 due generalized weakness. He was in the ED several days ago for blood transfusion, he was also found to have low glucose levels around 20-30 when in the ED. Patient was eventually upgraded to ICU due to low MAP in the 40s. Currently on pressor support and hypoglycemia protocol. CT abdomen pelvis showed pulmonary nodules, cirrhosis, splenomegaly LAD. There is concern for cancer. Patient has also lost over 100 pounds in the past year. HD access site through left upper extremity AV fistula. Last session completed this past Thursday. BP soft 89/41. Hemoglobin 9.0, MCV 83, platelets 33, sodium 139, potassium 3.7, BUN 30, creatinine 5.8, GFR 11, elevated lactic acid 2.8. UA positive for UTI. He was started on vancomycin/Zosyn. 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 Patient denies any chest pain, shortness of breath, headache, nausea or vomiting. Does have some lower extremity pain due to his dermatitis and ulcer. 04/06/2025 Patient was seen and examined. Patient does not have acute concerns/complaints. Patient's skin looks much less red after dc'ing the vancomycin. Planning on dialysis today and plan to give patient 1 unit RBC's. Notable labs of Hgb 7.6, Plt 28, PT 13.0, APTT 42.7, sodium 138, potassium 4.4, BUN 41, Cr 7.0, GFR 8, glucose 129, Phos 4.3, Mag 2.1.Patient denies chest pain shortness of breath, nausea, vomiting. Continues to have some lower extremity pain due to his dermatitis and ulcer. 04/07/2025 Patient was seen and examined. Patient does not have acute concerns/complaints. Patient received dialysis last night. Patient this morning states his eyes have crusted over, ordered gentamicin eye drops. Patient continues to be on midodrine 5 tid; vitals and labs reviewed. Notable labs of Hgb 8.3, Plt 27, sodium 138, potassium 3.7, BUN 26, Cr 5.1, GFR 12. Patient is scheduled to get platelet infusion today. Patient denies chest pain shortness of breath, nausea, vomiting. Continues to have some lower extremity pain due to his dermatitis and ulcer. Exam Vital Signs Temp Pulse Resp BP Pulse Ox O2 Del Method O2 Flow Rate 97.1 F 59 L 18 98/53 L 98 Room Air 2 04/07/25 08:00 04/07/25 08:00 04/07/25 08:00 04/07/25 08:00 04/07/25 08:00 04/07/25 08:00 04/06/25 20:49 Narrative Exam General: middle age male, unkempt, No acute distress, cooperative HEENT: Bilateral eye crusting; NCAT, No JVD noted. Mucosa moist. Pupils are equal and reactive to light bilaterally Cardiovascular: Normal S1 and S2. Regular rate and rhythm. Respiratory: Lungs are clear to auscultation bilaterally. No wheezing or crackles heard. Abdomen: Soft, nontender, not distended, normal bowel sounds. : angeles in place Skin: Warm to touch, dry, no rashes noted, Large left lower extremity ulcer, AV fistula ++ Musculoskeletal: No gross injuries. Able to move all 4 extremities. B/L LE 2+ pitting edema, Chronic venous stasis dermatitis with warmth, mild (improved) bilateral hand erythema. Neuro: Alert and oriented x3. No focal neuro deficits. Psych: Normal affect and mood Objective Labs 04/09/25 03:56 04/09/25 03:56 Labs: Laboratory Results - last 24 hr 04/04/25 04/06/25 04/06/25 13:51 04:43 11:30 WBC RBC Hgb Hct MCV MCH MCHC RDW Std Deviation Plt Count Neut % (Auto) Lymph % (Auto) [place] % (Auto) Eos % (Auto) Baso % (Auto) Neut # (Auto) Lymph # (Auto) [place] # (Auto) Eos # (Auto) Baso # (Auto) Immature Gran # (Auto) Absolute Nucleated RBC Immature Gran % Nucleated RBC % APTT Sodium Potassium Chloride Carbon Dioxide Anion Gap BUN Creatinine Estim Creat Clear Calc eGFR BUN/Creatinine Ratio Glucose Calculated Osmolality Calcium Corrected Calcium Phosphorus Magnesium Iron 82 TIBC 120 L Iron Saturation 68 H Unsat Iron Binding 38 L Total Bilirubin AST ALT Alkaline Phosphatase Total Protein Albumin Globulin Albumin/Globulin Ratio Tumor Marker AFP < 1.30 Stool for White Cells 1+ A Hepatitis A IgM Ab Non Reactive Hep Bs Antigen Non Reactive Hep B Core IgM Ab Non Reactive Hepatitis C Antibody Non Reactive Misc Test Result Blood Type O Positive Antibody Screen NEGATIVE Crossmatch See Detail Blood Bank Wristband ID Yes Blood Bank Comment PLATP Ready 04/07/25 05:31 WBC 2.9 L RBC 2.90 L Hgb 8.3 L Hct 24.7 L MCV 85 MCH 28.6 MCHC 33.6 RDW Std Deviation 46.9 H Plt Count 27 L* Neut % (Auto) 81 H Lymph % (Auto) 8 L [place] % (Auto) 4 Eos % (Auto) 7 Baso % (Auto) 0 Neut # (Auto) 2.3 Lymph # (Auto) 0.2 L [place] # (Auto) 0.1 Eos # (Auto) 0.2 Baso # (Auto) 0.0 Immature Gran # (Auto) 0.01 H Absolute Nucleated RBC 0.00 Immature Gran % 0 Nucleated RBC % 0 APTT 40.0 H Sodium 138 Potassium 3.7 D Chloride 103 Carbon Dioxide 27.4 Anion Gap 8 BUN 26 H Creatinine 5.1 H* D Estim Creat Clear Calc 22.8 L eGFR 12 L* BUN/Creatinine Ratio 5 L Glucose 102 Calculated Osmolality 280 Calcium 8.7 Corrected Calcium 9.7 Phosphorus 3.5 Magnesium 2.1 Iron TIBC Iron Saturation Unsat Iron Binding Total Bilirubin 0.7 AST 48 H ALT 25 Alkaline Phosphatase 152 H D Total Protein 5.8 Albumin 2.8 L Globulin 3.0 Albumin/Globulin Ratio 0.9 L Tumor Marker AFP Stool for White Cells Hepatitis A IgM Ab Hep Bs Antigen Hep B Core IgM Ab Hepatitis C Antibody Misc Test Result Platelets confirmed Blood Type Antibody Screen Crossmatch Blood Bank Wristband ID Blood Bank Comment Quality Measures Quality Measures VTE prophylaxis Assessment & Plan Assessment Current Active Medications: Generic Name Dose Route Start Last Admin Trade Name Freq PRN Reason Stop Dose Admin Acetaminophen 650 mg 04/04/25 17:40 Acetaminophen 325 Mg Tablet PO 05/04/25 17:39 Q6H PRN PAIN SCALE 1-3 (mild Acetaminophen 650 mg 04/04/25 17:40 Acetaminophen 325 Mg Tablet PO 05/04/25 17:39 Q6H PRN Fever >100.4 Hydrocodone Bitart/Acetaminophen 1 tab 04/04/25 17:40 Hydrocodone/Apap 10/325 Tab PO 04/09/25 17:39 Q4HR PRN PAIN SCALE 7-10 (Severe Dextrose 25 ml 04/04/25 19:18 04/04/25 21:00 Dextrose 50%-Water Inj 50 Ml Syringe IV 05/04/25 19:17 25 ml Q15MIN PRN Administration BG 50-70 responsive npo pt Dextrose 50 ml 04/04/25 19:18 04/04/25 20:05 Dextrose 50%-Water Inj 50 Ml Syringe IV 05/04/25 19:17 50 ml Q15MIN PRN Administration BG <50 OR BG <70 & pt unresponsive Glucagon 1 mg 04/04/25 19:18 Glucagon Inj 1 Mg Vial IM Q15MIN PRN BG <70, and no IV access Ceftriaxone Sodium/Dextrose 1 gm in 50 mls @ 100 mls/hr 04/06/25 10:57 04/07/25 08:11 Rocephin/D5w 1gm Iv Premix IV 04/13/25 10:56 100 mls/hr QDAY MARIANO Administration Levothyroxine Sodium 112 mcg 04/05/25 06:00 04/07/25 05:23 Levothyroxine Sodium 112 Mcg Tablet PO 05/05/25 05:59 112 mcg ACBR MARIANO Administration Midodrine 5 mg 04/05/25 11:00 04/07/25 05:22 Midodrine 5 Mg Tablet PO 05/05/25 10:59 5 mg TID MARIANO Administration Ondansetron HCl 4 mg 04/04/25 17:40 04/05/25 20:49 Ondansetron Inj 2 Mg/Ml Inj 2 Ml IVP 05/04/25 17:39 4 mg Q6H PRN Administration NAUSEA OR VOMITING Protocol Oxycodone/Acetaminophen 1 tab 04/04/25 17:40 04/05/25 03:12 Oxycodone/Apap 5/325 Tablet PO 04/09/25 17:39 1 tab Q6H PRN Administration PAIN SCALE 4-6 (Moderate Pantoprazole Sodium 40 mg 04/07/25 09:00 04/07/25 08:11 Pantoprazole 40 Mg Tablet PO 05/07/25 08:59 40 mg BID MARIANO Administration Vitamin B Complex/Vit C/Folic Acid 1 tab 04/04/25 19:30 04/07/25 08:11 Vit B12/Vit C/Fa (Nephrovite) Tablet PO 05/04/25 19:29 1 tab QDAY MARIANO Administration Plan Sincere Weaver is 59 yr male with PMH of ESRD on HD MWF, chronic thrombocytopenia and anemia of CKD with recurrent biweekly blood transfusions, hypothyroidism, HFpEF, chronic left leg ulcer with bilateral venous insufficiency and stasis dermatitis who presented to ED on 04/04/25 due generalized weakness. Nephrology was consulted to resume inpatient dialysis. #ESRD on HD M/W/F #Anemia of chronic disease #Recurrent blood transfusions HD access site through left upper extremity AV fistula. Last session completed this past Thursday. BP soft 89/41. Hgb 7.6, Plt 28, PT 13.0, APTT 42.7, sodium 138, potassium 4.4, BUN 41, Cr 7.0, GFR 8, glucose 129, Phos 4.3, Mag 2.1 this morning. HD through AV fistula. Patient pancytopenic; significant diffuse lymphadenopathy per CT. -platelets infusion today -R groin Lymph Node Biopsy today -Dialysis yesterday. Planning next dialysis Thursday, then resuming MWF next week -renally dose medications -renal diet -discontinued vancomycin due to red man syndrome reaction in past Persistent hypoglycemia Combined septic and hypovolemic shock Significant UTI Acute on chronic anemia and thrombocytopenia Neutropenia Significant metabolic abnormalities Lactic acidosis settings of sepsis and anemia HFpEF 55-60% Diarrhea, likely GI bleed given history above Bilateral lower extremity cellulitis Large left lower extremity ulcer Osteomyelitis of left lower extremity Possible metastatic neoplasm//intra-abdominal lymphadenopathy -management continued by ICU team The patient's management plan was discussed with my attending physician Dr. Cotton. Artur Coreas MD PGY-1 Attending Provider Attestation/Addendum Patient seen and examined with resident physician Dr. Coreas. Note reviewed, agree with findings and recommendations. Patient admitted with weakness, symptomatic hypoglycemia. Blood sugars better. Off D10 drip. Off vancomycin. Redness seems to be better. Clinically he seems to be better. Off pressors. Dr. Epperson was consulted for pancytopenia next dialysis scheduled for tomorrow
--- NOTE | 2025-04-07 10:24 | ESPR_ITS ---
<Statement entered by Laney Rock MD - 04/07/25 19:43> I have reviewed the note and agree with the resident's assessment & plan with exceptions as below. I have personally reviewed labs, imaging, home meds/prior records, examined the patient, formulated and discussed management plan with the IM team. Pt examined at bedside today. Pt to get EGD done today by Dr. Azar. Pt's platelets today are 27, he will require transfusion in setting of GI bleed. He will also require additional platelet transfusion when patient gets CT-guided biopsy of lymph node. Spoke directly with interventional radiologist will do procedure on Thursday with platelet transfusion to be done before. Will order platelets on Thursday for transfusion to happen Thursday. Will continue with current management. Oncology following, appreciate recs. There is suspicion for metastatic disease in setting of enlarged lymph nodes and pulmonary nodules. Will follow-up with patient after EGD. Repeat hematology, chemistry and electrolytes in the a.m. Laney Rock, PGY-2 Internal Medicine Documentation for date of: 04/07/25 Subjective Subjective Interval history: Patient seen at bedside. Patient is NPO pending EGD. 1unit Platelet transfusion today. Patient is not complaining of any chest pain, shortness of breath, abdominal pain, nausea, vomiting. Exam Vital Signs Temp Pulse Resp BP Pulse Ox O2 Del Method O2 Flow Rate 97.1 F 59 L 18 98/53 L 98 Room Air 2 04/07/25 08:00 04/07/25 08:00 04/07/25 08:00 04/07/25 08:00 04/07/25 08:00 04/07/25 08:00 04/06/25 20:49 Narrative Exam General:AO X3. Conversing well. Nontoxic-appearing. HEENT: Normocephalic, atraumatic, mucous membranes moist. Heart: Regular rate and rhythm, no murmurs. Lungs: Good air entry bilaterally, no wheezing or crackles. Abdomen: Soft, nondistended, nontender, positive bowel sounds. ?No guarding or rebound tenderness. Neurologic: no gross neurological deficit, and patient able to move all 4 extremities. Extremities: 2+ bilateral lower extremity edema, chronic venous stasis changes, bilateral petechiae seen upper extremities, cool fingertips. Skin: Left lower extremity wound with granulation tissue some serosanguineous oozing Objective Labs 04/07/25 05:31 04/07/25 05:31 Labs: Laboratory Results - last 24 hr 04/04/25 04/06/25 04/06/25 13:51 04:43 11:30 WBC RBC Hgb Hct MCV MCH MCHC RDW Std Deviation Plt Count Neut % (Auto) Lymph % (Auto) [place] % (Auto) Eos % (Auto) Baso % (Auto) Neut # (Auto) Lymph # (Auto) [place] # (Auto) Eos # (Auto) Baso # (Auto) Immature Gran # (Auto) Absolute Nucleated RBC Immature Gran % Nucleated RBC % APTT Sodium Potassium Chloride Carbon Dioxide Anion Gap BUN Creatinine Estim Creat Clear Calc eGFR BUN/Creatinine Ratio Glucose Calculated Osmolality Calcium Corrected Calcium Phosphorus Magnesium Iron 82 TIBC 120 L Iron Saturation 68 H Unsat Iron Binding 38 L Total Bilirubin AST ALT Alkaline Phosphatase Total Protein Albumin Globulin Albumin/Globulin Ratio Tumor Marker AFP < 1.30 Stool for White Cells 1+ A Hepatitis A IgM Ab Non Reactive Hep Bs Antigen Non Reactive Hep B Core IgM Ab Non Reactive Hepatitis C Antibody Non Reactive Misc Test Result Blood Type O Positive Antibody Screen NEGATIVE Crossmatch See Detail Blood Bank Wristband ID Yes Blood Bank Comment PLATP Ready 04/07/25 05:31 WBC 2.9 L RBC 2.90 L Hgb 8.3 L Hct 24.7 L MCV 85 MCH 28.6 MCHC 33.6 RDW Std Deviation 46.9 H Plt Count 27 L* Neut % (Auto) 81 H Lymph % (Auto) 8 L [place] % (Auto) 4 Eos % (Auto) 7 Baso % (Auto) 0 Neut # (Auto) 2.3 Lymph # (Auto) 0.2 L [place] # (Auto) 0.1 Eos # (Auto) 0.2 Baso # (Auto) 0.0 Immature Gran # (Auto) 0.01 H Absolute Nucleated RBC 0.00 Immature Gran % 0 Nucleated RBC % 0 APTT 40.0 H Sodium 138 Potassium 3.7 D Chloride 103 Carbon Dioxide 27.4 Anion Gap 8 BUN 26 H Creatinine 5.1 H* D Estim Creat Clear Calc 22.8 L eGFR 12 L* BUN/Creatinine Ratio 5 L Glucose 102 Calculated Osmolality 280 Calcium 8.7 Corrected Calcium 9.7 Phosphorus 3.5 Magnesium 2.1 Iron TIBC Iron Saturation Unsat Iron Binding Total Bilirubin 0.7 AST 48 H ALT 25 Alkaline Phosphatase 152 H D Total Protein 5.8 Albumin 2.8 L Globulin 3.0 Albumin/Globulin Ratio 0.9 L Tumor Marker AFP Stool for White Cells Hepatitis A IgM Ab Hep Bs Antigen Hep B Core IgM Ab Hepatitis C Antibody Misc Test Result Platelets confirmed Blood Type Antibody Screen Crossmatch Blood Bank Wristband ID Blood Bank Comment Quality Measures Quality Measures VTE prophylaxis Assessment & Plan Assessment Current Active Medications: Generic Name Dose Route Start Last Admin Trade Name Freq PRN Reason Stop Dose Admin Acetaminophen 650 mg 04/04/25 17:40 Acetaminophen 325 Mg Tablet PO 05/04/25 17:39 Q6H PRN PAIN SCALE 1-3 (mild Acetaminophen 650 mg 04/04/25 17:40 Acetaminophen 325 Mg Tablet PO 05/04/25 17:39 Q6H PRN Fever >100.4 Hydrocodone Bitart/Acetaminophen 1 tab 04/04/25 17:40 Hydrocodone/Apap 10/325 Tab PO 04/09/25 17:39 Q4HR PRN PAIN SCALE 7-10 (Severe Dextrose 25 ml 04/04/25 19:18 04/04/25 21:00 Dextrose 50%-Water Inj 50 Ml Syringe IV 05/04/25 19:17 25 ml Q15MIN PRN Administration BG 50-70 responsive npo pt Dextrose 50 ml 04/04/25 19:18 04/04/25 20:05 Dextrose 50%-Water Inj 50 Ml Syringe IV 05/04/25 19:17 50 ml Q15MIN PRN Administration BG <50 OR BG <70 & pt unresponsive Gentamicin Sulfate 0 drop 04/07/25 09:10 Gentamicin Op Vita 0.3% 5 Ml Btl BOTH EYES 04/11/25 09:09 Q4H MARIANO Glucagon 1 mg 04/04/25 19:18 Glucagon Inj 1 Mg Vial IM Q15MIN PRN BG <70, and no IV access Ceftriaxone Sodium/Dextrose 1 gm in 50 mls @ 100 mls/hr 04/06/25 10:57 04/07/25 08:11 Rocephin/D5w 1gm Iv Premix IV 04/13/25 10:56 100 mls/hr QDAY MARIANO Administration Levothyroxine Sodium 112 mcg 04/05/25 06:00 04/07/25 05:23 Levothyroxine Sodium 112 Mcg Tablet PO 05/05/25 05:59 112 mcg ACBR MARIANO Administration Midodrine 5 mg 04/05/25 11:00 04/07/25 05:22 Midodrine 5 Mg Tablet PO 05/05/25 10:59 5 mg TID MARIANO Administration Ondansetron HCl 4 mg 04/04/25 17:40 04/05/25 20:49 Ondansetron Inj 2 Mg/Ml Inj 2 Ml IVP 05/04/25 17:39 4 mg Q6H PRN Administration NAUSEA OR VOMITING Protocol Oxycodone/Acetaminophen 1 tab 04/04/25 17:40 04/05/25 03:12 Oxycodone/Apap 5/325 Tablet PO 04/09/25 17:39 1 tab Q6H PRN Administration PAIN SCALE 4-6 (Moderate Pantoprazole Sodium 40 mg 04/07/25 09:00 04/07/25 08:11 Pantoprazole 40 Mg Tablet PO 05/07/25 08:59 40 mg BID MARIANO Administration Vitamin B Complex/Vit C/Folic Acid 1 tab 04/04/25 19:30 04/07/25 08:11 Vit B12/Vit C/Fa (Nephrovite) Tablet PO 05/04/25 19:29 1 tab QDAY MARIANO Administration Plan Assessment: 59-year-old male patient with past medical history of ESRD on hemodialysis (MWF) follows Dr. Cotton, hypothyroidism, HFpEF, chronic left leg ulcer, questionable bilateral venous insufficiency, history of osteomyelitis, chronic pancytopenia, presented to the ED due to generalized weakness for 3 days. Patient was upgraded to the ICU secondary to septic shock and severe hypoglycemia. Patient has been downgraded from ICU and admitted to Telemetry for management of ongoing issues. #Bilateral pulmonary nodules #Pulmonary artery hypertension CT chest abdomen pelvis shows pulmonary arterial hypertension, 10 subcentimeter bilateral pulmonary nodules, consider early pulmonary nodular metastatic disease, negative for pneumonia. Plan: - Patient has extensive lymphadenopathy - Discussed with IR, who will do the CT-guided lymph node biopsy from right groin on 04/10/25 with platelet transfusion prior to biopsy. - 1 unit of platelet pre-ordered for Thursday04/09/25 - Consulted Heme-Onc, Appreciate Recomendations #Distributive shock - likely septic shock (resolved) #Severe UTI On presentation patient was found to have MAP on the 30s, was resuscitated with 2.4 L of fluids, 1 unit of blood, his blood pressure continued to have MAP below 65. Lactic acid 3.1, UA more than 17,000 WBCs. Delayed capillary refill more than 3 seconds, warm skin. On presentation, examination his urine noticed to be milky white, patient has history of dysuria and frequency for the past 3 days, noticed to have fever Weaned off Levophed yesterday in ICU Urine Cx negative in the context of abx use Blood Cx negative Plan: - Continue midodrine 5 mg 3 times daily - Zosyn (04/04 to 04/06) ---> Ceftriaxone (04/06- #HFpEF 55 to 60% in December 2024 #Mild aortic stenosis EHO December 2024 showed ejection fraction of 55 to 60%, however patient only reported using Lasix as he does not produce regular amount of urine secondary to his renal failure. Plan: -Continue to monitor urine output closely, -Strict ins and outs -Continue Hemodialysis inpatient #Diarrhea with black tarry stool #GI bleed rule out Patient reported multiple episodes of diarrhea, noticed to be black tarry stool, occult blood test in ED was negative, patient has history of antibiotic use recently. History of EGD done 2 years ago however he does not remember the results. Hemoglobin is chronically low difficult to determine if he has anemia secondary to GI bleed or secondary to his chronic pancytopenia. Fecal occult blood: negative Plan: - Follow stool culture, ova and parasite, C. difficile test PCR - Continue pantoprazole twice daily - Follow H&H as needed - Transfusing 1 unit pRBC today, follow posttransfusion H&H - GI consulted, appreciate recommendations #ESRD on dialysis MWF with Dr. Cotton Cr: 5.1 (7.0) eGFR: 12 BUN 26 Plan: - Nephrology following - Continue dialysis inpatient MWF - Strict in and out #Cirrhosis #Splenomegaly #Pancytopenia, CT abdomen pelvis shows cirrhosis and splenomegaly Underlying cirrhosis likely secondary to NAFLD Patient was found to have recurrent episodes of blood transfusion secondary to severe anemia, low platelets, occasional leukopenia Bone marrow biopsy and aspiration were taken in 2023 however the sample was inconclusive secondary to not enough sample. Bone marrow biopsy from 2022 is normal Plan: - Consider cirrhosis workup outpatient - Monitor CBC daily, follow platelets - Splenomegaly secondary to possible underlying lymphadenopathy/malignancy #Severe hypoglycemia #Questionable adrenal insufficiency Patient has history of recurrent episodes of hypoglycemia in previous admissions, and presentation his blood glucose from venous sample was 55, repeats continue to be in the 50s or 40s. Patient was given D50W and a snack however his blood sugar continued to be in the lower side. Plan: - Continue regular diet after EGD today - Started on stress dose steroids for underlying distributive shock #History of hypothyroidism Continue levothyroxine 112 mcg #History of osteomyelitis of the left tibia and fibula #History of chronic venous ulcer Patient supposed to finish his IV antibiotic for osteomyelitis in January this year, his wound seems to be clean however there is mild swelling of the left leg CT Scan LLE: Prominent cellulitis left lower extremity, Significant lymphadenopathy left pelvis left groin and proximal thigh, Negative for soft tissue abscess, negative for osteomyelitis Plan: Continue IV antibiotic as above, continue wound care, referral to wound care Health Maintenance: Diet: NPO GI prophylaxis: Protonix BID DVT prophylaxis: SCDs Antibiotics: Ceftriaxone CODE STATUS: Full code Disposition: Telemetry Case discussed with my attending Dr. Aviles , and senior resident, Dr. Shweta Escamilla MD PGY-1 Attending Provider Attestation/Addendum I attest that I was physically present for the evaluation, physical examination, lab and imaging review of the patient with the residents. I discussed the case with the residents and agree with the findings and plans of care as documented above. At bedside today, patient states she is feeling well. States that his mouth is dry. Hemoglobin is stable, 8.3 this morning. Patient was planned for lymph node biopsy, received platelet infusion. Biopsy was deferred to Thursday, he will receive another unit of platelet before biopsy attempt. Continues to be n.p.o., is planned for EGD today with GILauren Aviles MD
[2025-04-07] MEDS: GENTAMICIN OP SOL 0.3% 5 ML BTL BOTH EYES ×4 (10:38→20:57)
[2025-04-07 10:59] LABS: Clostridium Difficile PCR Negative (Negative)
--- NOTE | 2025-04-07 16:09 | PC.SS ---
Follow up note: PT worked with patient and recommended short stay at SNF. Inquiry sent out and PASRR completed
--- NOTE | 2025-04-07 17:45 | ESPR_ITS ---
RE: ERICK WARNER : 1965 DATE OF SERVICE: 04/07/2025 SUBJECTIVE: Mr. Warner is a 59-year-old gentleman with a history of lymphadenopathy and pancytopenia, renal failure on hemodialysis, and urosepsis. He is waiting to have an EGD done. PHYSICAL EXAMINATION: General: He is not in any apparent distress. Vital Signs: He is afebrile. Vitals stable. HEENT: Pupils are reactive to light and accommodation. Sclerae nonicteric. Neck: Supple. There is no JVD or palpable mass. Lungs: There is good air entry bilaterally. They are clear to auscultation. Heart: Regular. Abdomen: Soft. Extremities: More chronic edema with stasis dermatitis. Central Nervous System: The patient is able to move his extremities and follows simple commands. PLAN AND RECOMMENDATIONS: His blood work today had WBC count of 2.9, hemoglobin is 8.3, hematocrit 24.7, and platelet count of 27,000. He is not having any active bleeding at the moment and he mentioned to me that he will have a biopsy done from one of the lymph nodes maybe on Thursday. We will continue the present plan of treatment. Once we have the pathology report from the lymph nodes, then one can make the recommendation accordingly. DT: 17:27:51 TT: 17:43:00 Ref: [id number] - TID: [id number]
[2025-04-08] VITALS (35 sets, daily range): BP systolic 81–130; BP diastolic 43–74; PULSE 44–74; RESP 12–18; TEMP 35.9–36.9; O2SAT 91–98; BMI 38.1
[2025-04-08] MEDS: GENTAMICIN OP SOL 0.3% 5 ML BTL BOTH EYES ×5 (01:02→21:00)
--- NOTE | 2025-04-08 05:30 | PC.NURSE ---
kerlix drsg to LLE with small amount of brownish serous drainage- Drsg changed with ns, pat dry, applied adaptic, 4x4 fluff gauze, kerlix wrap and susi wrap. Elevated LLE on pillow.
[2025-04-08 06:05] LABS: Basophils # (Auto) 0.0 Thou/mm3 (0.0-0.2); Basophils % (Auto) 0 % (0-2.5); Eosinophils # (Auto) 0.2 Thou/mm3 (0.0-0.5); Eosinophils % (Auto) 8 % (0-10); Hematocrit 22.6 % (41.0-53.0); Immature Granulocytes Auto 0.02 Thou/mm3 (0.00-0.00); Lymphocytes # (Auto) 0.4 Thou/mm3 (1.0-4.8); Lymphocytes % (Auto) 13 % (10-50); Mean Corpuscular HGB Conc 34.1 g/dl (31.0-37.0); Mean Corpuscular Hemoglobin 28.8 pg (25.0-35.0); Mean Corpuscular Volume 85 fL (80-100); Monocytes # (Auto) 0.2 Thou/mm3 (0.0-0.8); Monocytes % (Auto) 8 % (0-12); Neutrophils # (Auto) 2.3 Thou/mm3 (1.8-7.7); Neutrophils % (Auto) 71 % (37-80); Nucleated Red Blood Cell # 0.00 Thou/mm3 (0.00-0.00); Nucleated Red Blood Cell % 0 /100 WBC (0); RDW Standard Deviation 47.0 fL (35.1-43.9); Red Blood Count 2.67 Miln/mm3 (4.50-5.90); White Blood Count 3.2 Thou/mm3 (3.8-10.6)
[2025-04-08 06:16] LABS: Hemoglobin 7.7 g/dL (13.5-16.0); Platelet Count 25 Thou/mm3 (140-440)
[2025-04-08 06:27] LABS: Alanine Aminotransferase 25 U/L (10-49); Albumin, Serum 2.8 gm/dL (3.5-5.0); Albumin/Globulin Ratio 1.0 (1.2-2.2); Alkaline Phosphatase 136 U/L (46-116); Anion Gap 12 (7-16); Aspartate Amino Transferase 33 U/L (0-34); BUN/Creatinine Ratio 7 Ratio (12-20); Bilirubin,Total 0.5 mg/dL (0.3-1.2); Blood Urea Nitrogen 41 mg/dL (9-23); Calcium 8.8 mg/dL (8.3-10.6); Calcium (Corrected) 9.8 mg/dL (8.5-10.1); Carbon Dioxide 29.1 mMol/L (20.0-31.0); Chloride 100 mMol/L (98-107); Creatinine (Component) 6.2 mg/dL (0.6-1.3); Estimated Creatinine Clearance 18.7 mL/min (>60); Globulin 2.9 gm/dL (2.3-3.5); Glucose 82 mg/dL (74-106); Magnesium 1.7 mg/dL (1.6-2.6); Osmolality,Calculated 290 (275-295); Phosphorous 3.8 mg/dL (2.4-5.1); Potassium 3.4 mMol/L (3.4-5.1); Sodium 141 mMol/L (136-145); Total Protein 5.7 gm/dL (5.7-8.2); eGFR 10 See Note
[2025-04-08 07:35] LABS: Slide Review Platelets confirmed
--- NOTE | 2025-04-08 08:02 | PC.NURSE ---
PATIENT TRANSFER TO DIALYSIS AND REPORT GIVEN TO JONA WEST. PT ALERT AND ORIENTED X3.
--- NOTE | 2025-04-08 08:06 | ESPR_ITS ---
Documentation for date of: 04/08/25 Subjective Subjective Interval history: Sincere Weaver is 59 yr male with PMH of ESRD on HD MWF, chronic thrombocytopenia and anemia of CKD with recurrent biweekly blood transfusions, hypothyroidism, HFpEF, chronic left leg ulcer with bilateral venous insufficiency and stasis dermatitis who presented to ED on 04/04/25 due generalized weakness. He was in the ED several days ago for blood transfusion, he was also found to have low glucose levels around 20-30 when in the ED. Patient was eventually upgraded to ICU due to low MAP in the 40s. Currently on pressor support and hypoglycemia protocol. CT abdomen pelvis showed pulmonary nodules, cirrhosis, splenomegaly LAD. There is concern for cancer. Patient has also lost over 100 pounds in the past year. HD access site through left upper extremity AV fistula. Last session completed this past Thursday. BP soft 89/41. Hemoglobin 9.0, MCV 83, platelets 33, sodium 139, potassium 3.7, BUN 30, creatinine 5.8, GFR 11, elevated lactic acid 2.8. UA positive for UTI. He was started on vancomycin/Zosyn. 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 Patient denies any chest pain, shortness of breath, headache, nausea or vomiting. Does have some lower extremity pain due to his dermatitis and ulcer. 04/06/2025 Patient was seen and examined. Patient does not have acute concerns/complaints. Patient's skin looks much less red after dc'ing the vancomycin. Planning on dialysis today and plan to give patient 1 unit RBC's. Notable labs of Hgb 7.6, Plt 28, PT 13.0, APTT 42.7, sodium 138, potassium 4.4, BUN 41, Cr 7.0, GFR 8, glucose 129, Phos 4.3, Mag 2.1.Patient denies chest pain shortness of breath, nausea, vomiting. Continues to have some lower extremity pain due to his dermatitis and ulcer. 04/07/2025 Patient was seen and examined. Patient does not have acute concerns/complaints. Patient received dialysis last night. Patient this morning states his eyes have crusted over, ordered gentamicin eye drops. Patient continues to be on midodrine 5 tid; vitals and labs reviewed. Notable labs of Hgb 8.3, Plt 27, sodium 138, potassium 3.7, BUN 26, Cr 5.1, GFR 12. Patient is scheduled to get platelet infusion today. Patient denies chest pain shortness of breath, nausea, vomiting. Continues to have some lower extremity pain due to his dermatitis and ulcer. 04/08/2025 Patient was seen and examined. Patient does not have acute concerns/complaints. Patient is receiving dialysis today. Patient denies any chest pain, abdominal pain, fever. Patient continues to be on midodrine 5 tid; vitals and labs reviewed. Exam Vital Signs Temp Pulse Resp BP Pulse Ox O2 Del Method O2 Flow Rate 96.9 F 62 17 109/53 L 96 Room Air 3 04/08/25 07:56 04/08/25 07:56 04/08/25 07:56 04/08/25 07:56 04/08/25 07:56 04/08/25 07:50 04/07/25 18:40 Narrative Exam General: No acute distress, cooperative HEENT: Bilateral eye crusting; NCAT, No JVD noted. Mucosa moist. Pupils are equal and reactive to light bilaterally Cardiovascular: Normal S1 and S2. Regular rate and rhythm. Respiratory: Lungs are clear to auscultation bilaterally. No wheezing or crackles heard. Abdomen: Soft, nontender, not distended, normal bowel sounds. Skin: Warm to touch, dry, no rashes noted, Large left lower extremity ulcer, AV fistula ++ Musculoskeletal: No gross injuries. Able to move all 4 extremities. B/L LE 2+ pitting edema, Chronic venous stasis dermatitis with warmth, mild (improved) bilateral hand erythema. Neuro: Alert and oriented x3. No focal neuro deficits. Psych: Normal affect and mood Objective Labs 04/09/25 03:56 04/09/25 03:56 Labs: Laboratory Results - last 24 hr 04/04/25 04/06/25 04/07/25 13:51 11:30 15:27 WBC RBC Hgb Hct MCV MCH MCHC RDW Std Deviation Plt Count Neut % (Auto) Lymph % (Auto) [place] % (Auto) Eos % (Auto) Baso % (Auto) Neut # (Auto) Lymph # (Auto) [place] # (Auto) Eos # (Auto) Baso # (Auto) Immature Gran # (Auto) Absolute Nucleated RBC Immature Gran % Nucleated RBC % Sodium Potassium Chloride Carbon Dioxide Anion Gap BUN Creatinine Estim Creat Clear Calc eGFR BUN/Creatinine Ratio Glucose Calculated Osmolality Calcium Corrected Calcium Phosphorus Magnesium Total Bilirubin AST ALT Alkaline Phosphatase Total Protein Albumin Globulin Albumin/Globulin Ratio Stl C. diff Tox B Gene Negative Misc Test Result Blood Type O Positive O Positive Antibody Screen NEGATIVE NEGATIVE Crossmatch See Detail Blood Bank Wristband ID Yes Yes Blood Bank Comment PLATP Ready 04/08/25 04:20 WBC 3.2 L RBC 2.67 L Hgb 7.7 L Hct 22.6 L MCV 85 MCH 28.8 MCHC 34.1 RDW Std Deviation 47.0 H Plt Count 25 L* Neut % (Auto) 71 Lymph % (Auto) 13 [place] % (Auto) 8 Eos % (Auto) 8 Baso % (Auto) 0 Neut # (Auto) 2.3 Lymph # (Auto) 0.[address] # (Auto) 0.2 Eos # (Auto) 0.2 Baso # (Auto) 0.0 Immature Gran # (Auto) 0.02 H Absolute Nucleated RBC 0.00 Immature Gran % 1 H Nucleated RBC % 0 Sodium 141 Potassium 3.4 Chloride 100 Carbon Dioxide 29.1 Anion Gap 12 BUN 41 H Creatinine 6.2 H* D Estim Creat Clear Calc 18.7 L eGFR 10 L* BUN/Creatinine Ratio 7 L Glucose 82 Calculated Osmolality 290 Calcium 8.8 Corrected Calcium 9.8 Phosphorus 3.8 Magnesium 1.7 Total Bilirubin 0.5 AST 33 ALT 25 Alkaline Phosphatase 136 H Total Protein 5.7 Albumin 2.8 L Globulin 2.9 Albumin/Globulin Ratio 1.0 L Stl C. diff Tox B Gene Misc Test Result Platelets confirmed Blood Type Antibody Screen Crossmatch Blood Bank Wristband ID Blood Bank Comment Quality Measures Quality Measures VTE prophylaxis Assessment & Plan Assessment Current Active Medications: Generic Name Dose Route Start Last Admin Trade Name Freq PRN Reason Stop Dose Admin Acetaminophen 650 mg 04/04/25 17:40 Acetaminophen 325 Mg Tablet PO 05/04/25 17:39 Q6H PRN PAIN SCALE 1-3 (mild Acetaminophen 650 mg 04/04/25 17:40 Acetaminophen 325 Mg Tablet PO 05/04/25 17:39 Q6H PRN Fever >100.4 Hydrocodone Bitart/Acetaminophen 1 tab 04/04/25 17:40 Hydrocodone/Apap 10/325 Tab PO 04/09/25 17:39 Q4HR PRN PAIN SCALE 7-10 (Severe Dextrose 25 ml 04/04/25 19:18 04/04/25 21:00 Dextrose 50%-Water Inj 50 Ml Syringe IV 05/04/25 19:17 25 ml Q15MIN PRN Administration BG 50-70 responsive npo pt Dextrose 50 ml 04/04/25 19:18 04/04/25 20:05 Dextrose 50%-Water Inj 50 Ml Syringe IV 05/04/25 19:17 50 ml Q15MIN PRN Administration BG <50 OR BG <70 & pt unresponsive Epoetin Leonard 10,000 unit 04/08/25 09:00 Epoetin Leonard-Epbx Inj 10,000 Unit/Ml Vial (Esrd) IV 04/08/25 09:01 X1 ONE Gentamicin Sulfate 0 drop 04/07/25 09:10 04/08/25 05:26 Gentamicin Op Vita 0.3% 5 Ml Btl BOTH EYES 04/11/25 09:09 2 drop Q4H MARIANO Administration Glucagon 1 mg 04/04/25 19:18 Glucagon Inj 1 Mg Vial IM Q15MIN PRN BG <70, and no IV access Ceftriaxone Sodium/Dextrose 1 gm in 50 mls @ 100 mls/hr 04/06/25 10:57 04/07/25 08:11 Rocephin/D5w 1gm Iv Premix IV 04/13/25 10:56 100 mls/hr QDAY MARIANO Administration Levothyroxine Sodium 112 mcg 04/05/25 06:00 04/08/25 05:20 Levothyroxine Sodium 112 Mcg Tablet PO 05/05/25 05:59 Not Given ACBR MARIANO Midodrine 5 mg 04/05/25 11:00 04/08/25 05:21 Midodrine 5 Mg Tablet PO 05/05/25 10:59 Not Given TID MARIANO Ondansetron HCl 4 mg 04/04/25 17:40 04/05/25 20:49 Ondansetron Inj 2 Mg/Ml Inj 2 Ml IVP 05/04/25 17:39 4 mg Q6H PRN Administration NAUSEA OR VOMITING Protocol Oxycodone/Acetaminophen 1 tab 04/04/25 17:40 04/05/25 03:12 Oxycodone/Apap 5/325 Tablet PO 04/09/25 17:39 1 tab Q6H PRN Administration PAIN SCALE 4-6 (Moderate Pantoprazole Sodium 40 mg 04/07/25 09:00 04/07/25 20:58 Pantoprazole 40 Mg Tablet PO 05/07/25 08:59 40 mg BID MARIANO Administration Vitamin B Complex/Vit C/Folic Acid 1 tab 04/04/25 19:30 04/07/25 08:11 Vit B12/Vit C/Fa (Nephrovite) Tablet PO 05/04/25 19:29 1 tab QDAY MARIANO Administration Plan Sincere Weaver is 59 yr male with PMH of ESRD on HD MWF, chronic thrombocytopenia and anemia of CKD with recurrent biweekly blood transfusions, hypothyroidism, HFpEF, chronic left leg ulcer with bilateral venous insufficiency and stasis dermatitis who presented to ED on 04/04/25 due generalized weakness. Nephrology was consulted to resume inpatient dialysis. #ESRD on HD M/W/F #Anemia of chronic disease #Recurrent blood transfusions HD access site through left upper extremity AV fistula. HD through AV fistula. Patient pancytopenic; significant diffuse lymphadenopathy per CT. -Dialysis today, then resuming MWF next week -renally dose medications -renal diet -discontinued vancomycin due to red man syndrome reaction in past Persistent hypoglycemia resolved- Combined septic and hypovolemic shock resolved Significant UTI Acute on chronic anemia and thrombocytopenia Neutropenia/pancytopenia Significant metabolic abnormalities Lactic acidosis settings of sepsis and anemia HFpEF 55-60% Diarrhea, likely GI bleed given history above Bilateral lower extremity cellulitis Large left lower extremity ulcer Osteomyelitis of left lower extremity Possible metastatic neoplasm//intra-abdominal lymphadenopathy-hematology was consulted -management continued by ICU team The patient's management plan was discussed with my attending physician Dr. Cotton. Artur Coreas MD PGY-1 Attending Provider Attestation/Addendum Patient seen and examined with resident physician Dr. Coreas. Note reviewed, agree with findings and recommendations. Patient admitted with weakness, symptomatic hypoglycemia. Blood sugars better. Off D10 drip. Patient currently seen on dialysis. Tolerating dialysis without any problems. Hemodialysis for 3 hours, 2K, ultrafiltration 2-3 L, Epogen 6000, no heparin ordered. Plan of care discussed with the dialysis nurse. Please see dialysis flowsheet for further details. Blood transfusion, platelet pheresis ordered with dialysis. Off vancomycin. Redness seems to be better. Clinically he seems to be better. Heme-onc was consulted for pancytopenia. Pending biopsy of the lymph nodes.
--- NOTE | 2025-04-08 08:36 | PD.RESPRO ---
Documentation for date of: 04/08/25 Subjective Subjective Interval history: Patient seen at bedside. No acute overnight events.. Patient received 1 unit of platelets yesterday. Tolerated well. No acute chest pain, shortness of breath, abdominal pain, nausea, vomiting. Exam Vital Signs Temp Pulse Resp BP Pulse Ox O2 Del Method O2 Flow Rate 96.9 F 56 L 17 94/59 L 96 Room Air 3 04/08/25 07:56 04/08/25 08:30 04/08/25 07:56 04/08/25 08:30 04/08/25 07:56 04/08/25 07:50 04/07/25 18:40 Narrative Exam General:AO X3. Conversing well. Nontoxic-appearing. HEENT: Normocephalic, atraumatic, mucous membranes moist. Heart: Regular rate and rhythm, no murmurs. Lungs: Good air entry bilaterally, no wheezing or crackles. Abdomen: Soft, nondistended, nontender, positive bowel sounds. ?No guarding or rebound tenderness. Neurologic: no gross neurological deficit, and patient able to move all 4 extremities. Extremities: 2+ bilateral lower extremity edema, chronic venous stasis changes, bilateral petechiae seen upper extremities, cool fingertips. Skin: Left lower extremity wound with granulation tissue some serosanguineous oozing Objective Labs 04/09/25 03:56 04/09/25 03:56 Labs: Laboratory Results - last 24 hr 04/04/25 04/06/25 04/07/25 13:51 11:30 15:27 WBC RBC Hgb Hct MCV MCH MCHC RDW Std Deviation Plt Count Neut % (Auto) Lymph % (Auto) [place] % (Auto) Eos % (Auto) Baso % (Auto) Neut # (Auto) Lymph # (Auto) [place] # (Auto) Eos # (Auto) Baso # (Auto) Immature Gran # (Auto) Absolute Nucleated RBC Immature Gran % Nucleated RBC % Sodium Potassium Chloride Carbon Dioxide Anion Gap BUN Creatinine Estim Creat Clear Calc eGFR BUN/Creatinine Ratio Glucose Calculated Osmolality Calcium Corrected Calcium Phosphorus Magnesium Total Bilirubin AST ALT Alkaline Phosphatase Total Protein Albumin Globulin Albumin/Globulin Ratio Stl C. diff Tox B Gene Negative Misc Test Result Blood Type O Positive O Positive Antibody Screen NEGATIVE NEGATIVE Crossmatch See Detail Blood Bank Wristband ID Yes Yes Blood Bank Comment PLATP Ready 04/08/25 04:20 WBC 3.2 L RBC 2.67 L Hgb 7.7 L Hct 22.6 L MCV 85 MCH 28.8 MCHC 34.1 RDW Std Deviation 47.0 H Plt Count 25 L* Neut % (Auto) 71 Lymph % (Auto) 13 [place] % (Auto) 8 Eos % (Auto) 8 Baso % (Auto) 0 Neut # (Auto) 2.3 Lymph # (Auto) 0.4 L [place] # (Auto) 0.2 Eos # (Auto) 0.2 Baso # (Auto) 0.0 Immature Gran # (Auto) 0.02 H Absolute Nucleated RBC 0.00 Immature Gran % 1 H Nucleated RBC % 0 Sodium 141 Potassium 3.4 Chloride 100 Carbon Dioxide 29.1 Anion Gap 12 BUN 41 H Creatinine 6.2 H* D Estim Creat Clear Calc 18.7 L eGFR 10 L* BUN/Creatinine Ratio 7 L Glucose 82 Calculated Osmolality 290 Calcium 8.8 Corrected Calcium 9.8 Phosphorus 3.8 Magnesium 1.7 Total Bilirubin 0.5 AST 33 ALT 25 Alkaline Phosphatase 136 H Total Protein 5.7 Albumin 2.8 L Globulin 2.9 Albumin/Globulin Ratio 1.0 L Stl C. diff Tox B Gene Misc Test Result Platelets confirmed Blood Type Antibody Screen Crossmatch Blood Bank Wristband ID Blood Bank Comment Quality Measures Quality Measures VTE prophylaxis Assessment & Plan Assessment Current Active Medications: Generic Name Dose Route Start Last Admin Trade Name Freq PRN Reason Stop Dose Admin Acetaminophen 650 mg 04/04/25 17:40 Acetaminophen 325 Mg Tablet PO 05/04/25 17:39 Q6H PRN PAIN SCALE 1-3 (mild Acetaminophen 650 mg 04/04/25 17:40 Acetaminophen 325 Mg Tablet PO 05/04/25 17:39 Q6H PRN Fever >100.4 Hydrocodone Bitart/Acetaminophen 1 tab 04/04/25 17:40 Hydrocodone/Apap 10/325 Tab PO 04/09/25 17:39 Q4HR PRN PAIN SCALE 7-10 (Severe Dextrose 25 ml 04/04/25 19:18 04/04/25 21:00 Dextrose 50%-Water Inj 50 Ml Syringe IV 05/04/25 19:17 25 ml Q15MIN PRN Administration BG 50-70 responsive npo pt Dextrose 50 ml 04/04/25 19:18 04/04/25 20:05 Dextrose 50%-Water Inj 50 Ml Syringe IV 05/04/25 19:17 50 ml Q15MIN PRN Administration BG <50 OR BG <70 & pt unresponsive Epoetin Leonard 10,000 unit 04/08/25 09:00 Epoetin Leonard-Epbx Inj 10,000 Unit/Ml Vial (Esrd) IV 04/08/25 09:01 X1 ONE Gentamicin Sulfate 0 drop 04/07/25 09:10 04/08/25 05:26 Gentamicin Op Vita 0.3% 5 Ml Btl BOTH EYES 04/11/25 09:09 2 drop Q4H MARIANO Administration Glucagon 1 mg 04/04/25 19:18 Glucagon Inj 1 Mg Vial IM Q15MIN PRN BG <70, and no IV access Ceftriaxone Sodium/Dextrose 1 gm in 50 mls @ 100 mls/hr 04/06/25 10:57 04/07/25 08:11 Rocephin/D5w 1gm Iv Premix IV 04/13/25 10:56 100 mls/hr QDAY MARIANO Administration Levothyroxine Sodium 112 mcg 04/05/25 06:00 04/08/25 05:20 Levothyroxine Sodium 112 Mcg Tablet PO 05/05/25 05:59 Not Given ACBR MARIANO Midodrine 5 mg 04/05/25 11:00 04/08/25 05:21 Midodrine 5 Mg Tablet PO 05/05/25 10:59 Not Given TID MARIANO Ondansetron HCl 4 mg 04/04/25 17:40 04/05/25 20:49 Ondansetron Inj 2 Mg/Ml Inj 2 Ml IVP 05/04/25 17:39 4 mg Q6H PRN Administration NAUSEA OR VOMITING Protocol Oxycodone/Acetaminophen 1 tab 04/04/25 17:40 04/05/25 03:12 Oxycodone/Apap 5/325 Tablet PO 04/09/25 17:39 1 tab Q6H PRN Administration PAIN SCALE 4-6 (Moderate Pantoprazole Sodium 40 mg 04/07/25 09:00 04/07/25 20:58 Pantoprazole 40 Mg Tablet PO 05/07/25 08:59 40 mg BID MARIANO Administration Vitamin B Complex/Vit C/Folic Acid 1 tab 04/04/25 19:30 04/07/25 08:11 Vit B12/Vit C/Fa (Nephrovite) Tablet PO 05/04/25 19:29 1 tab QDAY MARIANO Administration Plan Assessment: 59-year-old male patient with past medical history of ESRD on hemodialysis (MWF) follows Dr. Cotton, hypothyroidism, HFpEF, chronic left leg ulcer, questionable bilateral venous insufficiency, history of osteomyelitis, chronic pancytopenia, presented to the ED due to generalized weakness for 3 days. Patient was upgraded to the ICU secondary to septic shock and severe hypoglycemia. Patient has been downgraded from ICU and admitted to Telemetry for management of ongoing issues. #Bilateral pulmonary nodules #Pulmonary artery hypertension CT chest abdomen pelvis shows pulmonary arterial hypertension, 10 subcentimeter bilateral pulmonary nodules, consider early pulmonary nodular metastatic disease, negative for pneumonia. Plan: - Patient has extensive lymphadenopathy - Discussed with IR, who will do the CT-guided lymph node biopsy from right groin on 04/10/25 with platelet transfusion prior to biopsy. - 1 unit of platelet preordered make sure to give before lymph node biopsy - Consulted Heme-Onc, Appreciate Recomendations #Distributive shock - likely septic shock (resolved) #Severe UTI On presentation patient was found to have MAP on the 30s, was resuscitated with 2.4 L of fluids, 1 unit of blood, his blood pressure continued to have MAP below 65. Lactic acid 3.1, UA more than 17,000 WBCs. Delayed capillary refill more than 3 seconds, warm skin. On presentation, examination his urine noticed to be milky white, patient has history of dysuria and frequency for the past 3 days, noticed to have fever Weaned off Levophed yesterday in ICU Urine Cx negative in the context of abx use Blood Cx negative Plan: - Continue midodrine 5 mg 3 times daily - Zosyn (04/04 to 04/06) ---> Ceftriaxone (04/06- #HFpEF 55 to 60% in December 2024 #Mild aortic stenosis EHO December 2024 showed ejection fraction of 55 to 60%, however patient only reported using Lasix as he does not produce regular amount of urine secondary to his renal failure. Plan: -Continue to monitor urine output closely, -Strict ins and outs -Continue Hemodialysis inpatient #Diarrhea with black tarry stool #GI bleed rule out #Arteriovenous malformations Patient reported multiple episodes of diarrhea, noticed to be black tarry stool, occult blood test in ED was negative, patient has history of antibiotic use recently. History of EGD done 2 years ago however he does not remember the results. Hemoglobin is chronically low difficult to determine if he has anemia secondary to GI bleed or secondary to his chronic pancytopenia. Fecal occult blood: negative EGD 04/07/25: Multiple non-bleeding angiodysplastic lesions in the stomach. Erythematous duodenopathy. Erosive duodenitis Plan: - APC laser of all these AVMs in the body of the stomach TODAY - Follow stool culture, ova and parasite, C. difficile test PCR - Continue pantoprazole twice daily - Follow CBC - GI consulted, follow recs - Avoid NSAIDs #ESRD on dialysis MWF with Dr. Cotton Cr: 6.2 (5.1) eGFR: 18.7 BUN 41 Plan: - Nephrology following - Continue dialysis inpatient MWF - Strict in and out - Avoid nephrotoxic drugs #Cirrhosis #Splenomegaly #Pancytopenia, CT abdomen pelvis shows cirrhosis and splenomegaly Underlying cirrhosis likely secondary to NAFLD Patient was found to have recurrent episodes of blood transfusion secondary to severe anemia, low platelets, occasional leukopenia Bone marrow biopsy and aspiration were taken in 2023 however the sample was inconclusive secondary to not enough sample. Bone marrow biopsy from 2022 is normal Plan: - Consider cirrhosis workup outpatient - Monitor CBC daily, follow platelets - Splenomegaly secondary to possible underlying lymphadenopathy/malignancy #Severe hypoglycemia #Questionable adrenal insufficiency Patient has history of recurrent episodes of hypoglycemia in previous admissions, and presentation his blood glucose from venous sample was 55, repeats continue to be in the 50s or 40s. Patient was given D50W and a snack however his blood sugar continued to be in the lower side. Plan: - Started on stress dose steroids for underlying distributive shock #History of hypothyroidism Continue levothyroxine 112 mcg #History of osteomyelitis of the left tibia and fibula #History of chronic venous ulcer Patient supposed to finish his IV antibiotic for osteomyelitis in January this year, his wound seems to be clean however there is mild swelling of the left leg CT Scan LLE: Prominent cellulitis left lower extremity, Significant lymphadenopathy left pelvis left groin and proximal thigh, Negative for soft tissue abscess, negative for osteomyelitis Plan: Continue IV antibiotic as above, continue wound care, referral to wound care Health Maintenance: Diet: NPO GI prophylaxis: Protonix BID DVT prophylaxis: SCDs Antibiotics: Ceftriaxone CODE STATUS: Full code Disposition: Telemetry Case discussed with my attending Dr. Stefan Escamilla MD PGY-1 Attending Provider Attestation/Addendum I attest that I was physically present for the evaluation, physical examination, lab and imaging review of the patient with the residents. I discussed the case with the residents and agree with the findings and plans of care as documented above. At bedside today, patient states she is feeling well and denies any new complaints. Plan for EGD today with GI for ablation of angiodysplasias. Hemoglobin is 7.7 this morning. Continues to be on Rocephin for UTI. Patient is planned for lymph node biopsy on Thursday, we will transfuse with pheresis platelet before the transfusion. Also received a hemodialysis session with nephrology. Farrah Aviles MD
[2025-04-08] MEDS: EPOETIN ALFA-EPBX INJ 10,000 UNIT/ML VIAL (ESRD) 10000 UNIT IV (08:37)
[2025-04-08] MEDS: ALBUMIN HUMAN 25% IVPB 25 GM/100 ML BTL IV (08:41)
[2025-04-08] MEDS: VIT B12/Vit C/FA (Nephrovite) TABLET 1 TAB PO (11:59)
[2025-04-08] MEDS: cefTRIAXone/D5w 1gm IV premix 1 GM/50 ML BAG IV (11:59)
[2025-04-08] MEDS: PANTOPRAZOLE 40 MG TABLET PO ×2 (11:59→20:59)
--- NOTE | 2025-04-08 17:13 | SUR.PHASEI ---
1713: Pt. wakes to name then drifts back to sleep, vitals stable, breathing unlabored, no complaint of pain or nausea, no dressing in place, report received from Vanessa [facility].
--- NOTE | 2025-04-08 17:48 | SUR.PHASEI ---
1748: Pt. AAOx4, vitals stable, breathing unlabored, no complaint of pain or nausea, no dressing in place, no active bleed noted, pt. tolerated bites of jello well, gave report to [place] [facility] prior to transfer to room 352.
--- NOTE | 2025-04-08 17:58 | PC.NURSE ---
PATIENT BACK FROM ENDO, ALERT AND ORIENTED X4
[2025-04-08] MEDS: MIDODRINE 5 MG TABLET PO ×2 (18:03→22:36)
[2025-04-09] VITALS (16 sets, daily range): BP systolic 95–120; BP diastolic 56–79; PULSE 61–93; RESP 16–19; TEMP 36.1–36.7; O2SAT 95–99; BMI 37.6
[2025-04-09 05:17] LABS: Basophils # (Auto) 0.0 Thou/mm3 (0.0-0.2); Basophils % (Auto) 0 % (0-2.5); Eosinophils # (Auto) 0.3 Thou/mm3 (0.0-0.5); Eosinophils % (Auto) 10 % (0-10); Hematocrit 24.4 % (41.0-53.0); Immature Granulocytes Auto 0.03 Thou/mm3 (0.00-0.00); Lymphocytes # (Auto) 0.5 Thou/mm3 (1.0-4.8); Lymphocytes % (Auto) 15 % (10-50); Mean Corpuscular HGB Conc 32.4 g/dl (31.0-37.0); Mean Corpuscular Hemoglobin 28.7 pg (25.0-35.0); Mean Corpuscular Volume 89 fL (80-100); Monocytes # (Auto) 0.3 Thou/mm3 (0.0-0.8); Monocytes % (Auto) 10 % (0-12); Neutrophils # (Auto) 2.1 Thou/mm3 (1.8-7.7); Neutrophils % (Auto) 63 % (37-80); Nucleated Red Blood Cell # 0.00 Thou/mm3 (0.00-0.00); Nucleated Red Blood Cell % 0 /100 WBC (0); RDW Standard Deviation 49.7 fL (35.1-43.9); Red Blood Count 2.75 Miln/mm3 (4.50-5.90); White Blood Count 3.3 Thou/mm3 (3.8-10.6)
[2025-04-09 05:42] LABS: Hemoglobin 7.9 g/dL (13.5-16.0); Platelet Count 24 Thou/mm3 (140-440)
[2025-04-09 05:43] LABS: Slide Review Platelets confirmed
[2025-04-09 06:07] LABS: Alanine Aminotransferase 25 U/L (10-49); Albumin, Serum 2.9 gm/dL (3.5-5.0); Albumin/Globulin Ratio 1.0 (1.2-2.2); Alkaline Phosphatase 121 U/L (46-116); Anion Gap 11 (7-16); Aspartate Amino Transferase 32 U/L (0-34); BUN/Creatinine Ratio 6 Ratio (12-20); Bilirubin,Total 0.6 mg/dL (0.3-1.2); Blood Urea Nitrogen 29 mg/dL (9-23); Calcium 8.8 mg/dL (8.3-10.6); Calcium (Corrected) 9.7 mg/dL (8.5-10.1); Carbon Dioxide 29.4 mMol/L (20.0-31.0); Chloride 102 mMol/L (98-107); Creatinine (Component) 4.8 mg/dL (0.6-1.3); Estimated Creatinine Clearance 24.5 mL/min (>60); Globulin 2.8 gm/dL (2.3-3.5); Glucose 75 mg/dL (74-106); Magnesium 1.5 mg/dL (1.6-2.6); Osmolality,Calculated 287 (275-295); Phosphorous 2.6 mg/dL (2.4-5.1); Potassium 3.6 mMol/L (3.4-5.1); Sodium 142 mMol/L (136-145); Total Protein 5.7 gm/dL (5.7-8.2); eGFR 13 See Note
[2025-04-09] MEDS: MIDODRINE 5 MG TABLET PO ×3 (06:30→21:09)
[2025-04-09] MEDS: LEVOTHYROXINE SODIUM 112 MCG TABLET PO (06:30)
[2025-04-09] MEDS: GENTAMICIN OP SOL 0.3% 5 ML BTL BOTH EYES ×5 (06:33→21:10)
--- NOTE | 2025-04-09 07:42 | PD.RESPRO ---
Documentation for date of: 04/09/25 Subjective Subjective Interval history: Sincere Weaver is 59 yr male with PMH of ESRD on HD MWF, chronic thrombocytopenia and anemia of CKD with recurrent biweekly blood transfusions, hypothyroidism, HFpEF, chronic left leg ulcer with bilateral venous insufficiency and stasis dermatitis who presented to ED on 04/04/25 due generalized weakness. He was in the ED several days ago for blood transfusion, he was also found to have low glucose levels around 20-30 when in the ED. Patient was eventually upgraded to ICU due to low MAP in the 40s. Currently on pressor support and hypoglycemia protocol. CT abdomen pelvis showed pulmonary nodules, cirrhosis, splenomegaly LAD. There is concern for cancer. Patient has also lost over 100 pounds in the past year. HD access site through left upper extremity AV fistula. Last session completed this past Thursday. BP soft 89/41. Hemoglobin 9.0, MCV 83, platelets 33, sodium 139, potassium 3.7, BUN 30, creatinine 5.8, GFR 11, elevated lactic acid 2.8. UA positive for UTI. He was started on vancomycin/Zosyn. 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 Patient denies any chest pain, shortness of breath, headache, nausea or vomiting. Does have some lower extremity pain due to his dermatitis and ulcer. 04/06/2025 Patient was seen and examined. Patient does not have acute concerns/complaints. Patient's skin looks much less red after dc'ing the vancomycin. Planning on dialysis today and plan to give patient 1 unit RBC's. Notable labs of Hgb 7.6, Plt 28, PT 13.0, APTT 42.7, sodium 138, potassium 4.4, BUN 41, Cr 7.0, GFR 8, glucose 129, Phos 4.3, Mag 2.1.Patient denies chest pain shortness of breath, nausea, vomiting. Continues to have some lower extremity pain due to his dermatitis and ulcer. 04/07/2025 Patient was seen and examined. Patient does not have acute concerns/complaints. Patient received dialysis last night. Patient this morning states his eyes have crusted over, ordered gentamicin eye drops. Patient continues to be on midodrine 5 tid; vitals and labs reviewed. Notable labs of Hgb 8.3, Plt 27, sodium 138, potassium 3.7, BUN 26, Cr 5.1, GFR 12. Patient is scheduled to get platelet infusion today. Patient denies chest pain shortness of breath, nausea, vomiting. Continues to have some lower extremity pain due to his dermatitis and ulcer. 04/08/2025 Patient was seen and examined. Patient does not have acute concerns/complaints. Patient is receiving dialysis today. Patient denies any chest pain, abdominal pain, fever. Patient continues to be on midodrine 5 tid; vitals and labs reviewed. 04/09/2025 Patient seen and examined at bedside. Requests regular diet and is often very hungry on renal diet. Plan for lymph node biopsy tomorrow, if para-aortic node is too risky and cannot be done, recommend to take biopsy from pelvic lymph node. Cr improving 4.8, BUN improving 29. Exam Vital Signs Temp Pulse Resp BP Pulse Ox O2 Del Method O2 Flow Rate 98.1 F 69 17 102/57 L 95 Room Air 2 04/09/25 04:00 04/09/25 06:30 04/09/25 04:00 04/09/25 06:30 04/09/25 04:00 04/09/25 04:00 04/08/25 17:23 Narrative Exam General: No acute distress, cooperative HEENT: Bilateral eye crusting; NCAT, No JVD noted. Mucosa moist. Cardiovascular: Normal S1 and S2. Regular rate and rhythm. Respiratory: Lungs are clear to auscultation bilaterally. No wheezing or crackles heard. Abdomen: Soft, nontender, not distended, normal bowel sounds. Skin: Warm to touch, dry, no rashes noted, Large left lower extremity ulcer, AV fistula ++ Musculoskeletal: No gross injuries. Able to move all 4 extremities. B/L LE 2+ pitting edema, Chronic venous stasis dermatitis with warmth, mild (improved) bilateral hand erythema. Neuro: Alert and oriented x3. No focal neuro deficits. Psych: Normal affect and mood Objective Labs 04/09/25 03:56 04/09/25 03:56 Labs: Laboratory Results - last 24 hr 04/09/25 03:56 WBC 3.3 L RBC 2.75 L Hgb 7.9 L Hct 24.4 L MCV 89 MCH 28.7 MCHC 32.4 RDW Std Deviation 49.7 H Plt Count 24 L* Neut % (Auto) 63 Lymph % (Auto) 15 [place] % (Auto) 10 Eos % (Auto) 10 Baso % (Auto) 0 Neut # (Auto) 2.1 Lymph # (Auto) 0.5 L [place] # (Auto) 0.3 Eos # (Auto) 0.3 Baso # (Auto) 0.0 Immature Gran # (Auto) 0.03 H Absolute Nucleated RBC 0.00 Immature Gran % 1 H Nucleated RBC % 0 Sodium 142 Potassium 3.6 Chloride 102 Carbon Dioxide 29.4 Anion Gap 11 BUN 29 H Creatinine 4.8 H* D Estim Creat Clear Calc 24.5 L eGFR 13 L* BUN/Creatinine Ratio 6 L Glucose 75 Calculated Osmolality 287 Calcium 8.8 Corrected Calcium 9.7 Phosphorus 2.6 Magnesium 1.5 L Total Bilirubin 0.6 AST 32 ALT 25 Alkaline Phosphatase 121 H Total Protein 5.7 Albumin 2.9 L Globulin 2.8 Albumin/Globulin Ratio 1.0 L Misc Test Result Platelets confirmed Quality Measures Quality Measures VTE prophylaxis Assessment & Plan Assessment Current Active Medications: Generic Name Dose Route Start Last Admin Trade Name Freq PRN Reason Stop Dose Admin Acetaminophen 650 mg 04/04/25 17:40 Acetaminophen 325 Mg Tablet PO 05/04/25 17:39 Q6H PRN PAIN SCALE 1-3 (mild Acetaminophen 650 mg 04/04/25 17:40 Acetaminophen 325 Mg Tablet PO 05/04/25 17:39 Q6H PRN Fever >100.4 Hydrocodone Bitart/Acetaminophen 1 tab 04/04/25 17:40 Hydrocodone/Apap 10/325 Tab PO 04/09/25 17:39 Q4HR PRN PAIN SCALE 7-10 (Severe Dextrose 25 ml 04/04/25 19:18 04/04/25 21:00 Dextrose 50%-Water Inj 50 Ml Syringe IV 05/04/25 19:17 25 ml Q15MIN PRN Administration BG 50-70 responsive npo pt Dextrose 50 ml 04/04/25 19:18 04/04/25 20:05 Dextrose 50%-Water Inj 50 Ml Syringe IV 05/04/25 19:17 50 ml Q15MIN PRN Administration BG <50 OR BG <70 & pt unresponsive Gentamicin Sulfate 0 drop 04/07/25 09:10 04/09/25 06:33 Gentamicin Op Vita 0.3% 5 Ml Btl BOTH EYES 04/11/25 09:09 2 drop Q4H MARIANO Administration Glucagon 1 mg 04/04/25 19:18 Glucagon Inj 1 Mg Vial IM Q15MIN PRN BG <70, and no IV access Ceftriaxone Sodium/Dextrose 1 gm in 50 mls @ 100 mls/hr 04/06/25 10:57 04/08/25 11:59 Rocephin/D5w 1gm Iv Premix IV 04/13/25 10:56 100 mls/hr QDAY MARIANO Administration Albumin Human 25 gm in 100 mls @ 100 mls/hr 04/08/25 08:36 04/08/25 08:41 Albuminar-25 Ivpb IV 100 mls/hr PRN PRN Administration DIALYSIS Levothyroxine Sodium 112 mcg 04/05/25 06:00 04/09/25 06:30 Levothyroxine Sodium 112 Mcg Tablet PO 05/05/25 05:59 112 mcg ACBR MARIANO Administration Midodrine 5 mg 04/05/25 11:00 04/09/25 06:30 Midodrine 5 Mg Tablet PO 05/05/25 10:59 5 mg TID MARIANO Administration Ondansetron HCl 4 mg 04/04/25 17:40 04/05/25 20:49 Ondansetron Inj 2 Mg/Ml Inj 2 Ml IVP 05/04/25 17:39 4 mg Q6H PRN Administration NAUSEA OR VOMITING Protocol Oxycodone/Acetaminophen 1 tab 04/04/25 17:40 04/05/25 03:12 Oxycodone/Apap 5/325 Tablet PO 04/09/25 17:39 1 tab Q6H PRN Administration PAIN SCALE 4-6 (Moderate Pantoprazole Sodium 40 mg 04/07/25 09:00 04/08/25 20:59 Pantoprazole 40 Mg Tablet PO 05/07/25 08:59 40 mg BID MARIANO Administration Vitamin B Complex/Vit C/Folic Acid 1 tab 04/04/25 19:30 04/08/25 11:59 Vit B12/Vit C/Fa (Nephrovite) Tablet PO 05/04/25 19:29 1 tab QDAY MARIANO Administration Plan Sincere Weaver is 59 yr male with PMH of ESRD on HD MWF, chronic thrombocytopenia and anemia of CKD with recurrent biweekly blood transfusions, hypothyroidism, HFpEF, chronic left leg ulcer with bilateral venous insufficiency and stasis dermatitis who presented to ED on 04/04/25 due generalized weakness. Nephrology was consulted to resume inpatient dialysis. #ESRD on HD M/W/F #Anemia of chronic disease #Recurrent blood transfusions HD access site through left upper extremity AV fistula. Patient pancytopenic; significant diffuse lymphadenopathy per CT. Received dialysis 04/08, -Resume MWF dialysis -renally dose medications -renal diet -discontinued vancomycin due to red man syndrome reaction in past -Plan for lymph node biopsy tomorrow Persistent hypoglycemia resolved- Combined septic and hypovolemic shock resolved Significant UTI Acute on chronic anemia and thrombocytopenia Neutropenia/pancytopenia Significant metabolic abnormalities Lactic acidosis settings of sepsis and anemia HFpEF 55-60% Diarrhea, likely GI bleed given history above Bilateral lower extremity cellulitis Large left lower extremity ulcer Osteomyelitis of left lower extremity Possible metastatic neoplasm//intra-abdominal lymphadenopathy-hematology was consulted -management continued by ICU team The patient's management plan was discussed with my attending physician Dr. Cotton. Vannesa Casiano, DO Internal Medicine PGY-1 Attending Provider Attestation/Addendum Patient seen and examined with resident physician Dr. Casiano. Note reviewed, agree with findings and recommendations. Patient admitted with weakness, symptomatic hypoglycemia. Blood sugars better. Off D10 drip. platelet pheresis ordered with dialysis. Heme-onc was consulted for pancytopenia. Pending biopsy of the lymph nodes. HD in am
[2025-04-09 09:12] LABS: Immature Reticulocyte Fraction 15.4 % (2.3-13.4); Reticulocyte % (Auto) 0.7 % (0.5-1.5); Reticulocyte Absolute Auto 19.8 Biln/L (25.0-75.0); Reticulocyte Hgb Content 29.1 pg (28.0-35.0)
[2025-04-09] MEDS: cefTRIAXone/D5w 1gm IV premix 1 GM/50 ML BAG IV (09:15)
[2025-04-09] MEDS: VIT B12/Vit C/FA (Nephrovite) TABLET 1 TAB PO (09:16)
[2025-04-09] MEDS: PANTOPRAZOLE 40 MG TABLET PO ×2 (09:16→21:09)
[2025-04-09 09:26] LABS: LDH (Lactate Dehydrogenase) 150 U/L (120-246)
--- NOTE | 2025-04-09 16:23 | PD.RESPRO ---
Documentation for date of: 04/09/25 Subjective Subjective Interval history: Patient seen at bedside. No acute overnight events.. Patient received 1 unit of platelets yesterday. Tolerated well. No acute chest pain, shortness of breath, abdominal pain, nausea, vomiting. Exam Vital Signs Temp Pulse Resp BP Pulse Ox O2 Del Method O2 Flow Rate 97.5 F 75 17 100/51 L 94 L Nasal Cannula 3 04/10/25 14:20 04/10/25 15:40 04/10/25 15:40 04/10/25 15:40 04/10/25 15:40 04/10/25 15:40 04/10/25 15:40 Narrative Exam General:AO X3. Conversing well. Nontoxic-appearing. HEENT: Normocephalic, atraumatic, mucous membranes moist. Heart: Regular rate and rhythm, no murmurs. Lungs: Good air entry bilaterally, no wheezing or crackles. Abdomen: Soft, nondistended, nontender, positive bowel sounds. ?No guarding or rebound tenderness. Neurologic: no gross neurological deficit, and patient able to move all 4 extremities. Extremities: 2+ bilateral lower extremity edema, chronic venous stasis changes, bilateral petechiae seen upper extremities, cool fingertips. Skin: Left lower extremity wound with granulation tissue some serosanguineous oozing Objective Labs 04/11/25 11:41 04/11/25 11:41 Labs: Laboratory Results - last 24 hr 04/07/25 04/09/25 04/10/25 15:27 15:58 04:14 WBC 3.8 3.7 L RBC 2.83 L 2.74 L Hgb 8.1 L 7.8 L Hct 23.8 L 23.1 L MCV 84 84 MCH 28.6 28.5 MCHC 34.0 33.8 RDW Std Deviation 47.8 H 47.3 H Plt Count 29 L* D 29 L* Neut % (Auto) 67 63 Lymph % (Auto) 14 18 [place] % (Auto) 9 9 Eos % (Auto) 9 7 Baso % (Auto) 0 0 Neut # (Auto) 2.5 2.3 Lymph # (Auto) 0.5 L 0.7 L [place] # (Auto) 0.3 0.3 Eos # (Auto) 0.3 0.3 Baso # (Auto) 0.0 0.0 Immature Gran # (Auto) 0.04 H 0.06 H Absolute Nucleated RBC 0.00 0.00 Immature Gran % 1 H 2 H Nucleated RBC % 0 0 Smear Path Review Sent to Pathologist PT 13.1 H INR 1.2 APTT 37.0 H Sodium 140 Potassium 3.6 Chloride 103 Carbon Dioxide 29.5 Anion Gap 8 BUN 38 H Creatinine 6.1 H* D Estim Creat Clear Calc 19.1 L eGFR 10 L* BUN/Creatinine Ratio 6 L Glucose 91 Calculated Osmolality 288 Calcium 9.0 Corrected Calcium 10.0 Phosphorus 3.0 Magnesium 1.8 Total Bilirubin 0.5 AST 23 ALT 22 Alkaline Phosphatase 121 H Total Protein 5.4 L Albumin 2.8 L Globulin 2.6 Albumin/Globulin Ratio 1.1 L Misc Test Result Platelets confirmed Platelets confirmed Blood Type O Positive Antibody Screen NEGATIVE Blood Bank Wristband ID Yes Blood Bank Comment PLATP Ready Quality Measures Quality Measures VTE prophylaxis Assessment & Plan Assessment Current Active Medications: Generic Name Dose Route Start Last Admin Trade Name Freq PRN Reason Stop Dose Admin Acetaminophen 650 mg 04/04/25 17:40 Acetaminophen 325 Mg Tablet PO 05/04/25 17:39 Q6H PRN PAIN SCALE 1-3 (mild Acetaminophen 650 mg 04/04/25 17:40 Acetaminophen 325 Mg Tablet PO 05/04/25 17:39 Q6H PRN Fever >100.4 Dextrose 25 ml 04/04/25 19:18 04/04/25 21:00 Dextrose 50%-Water Inj 50 Ml Syringe IV 05/04/25 19:17 25 ml Q15MIN PRN Administration BG 50-70 responsive npo pt Dextrose 50 ml 04/04/25 19:18 04/04/25 20:05 Dextrose 50%-Water Inj 50 Ml Syringe IV 05/04/25 19:17 50 ml Q15MIN PRN Administration BG <50 OR BG <70 & pt unresponsive Diphenhydramine HCl 25 mg 04/09/25 14:02 04/10/25 06:05 Diphenhydramine 25 Mg Capsule PO 05/09/25 14:01 25 mg TID PRN Administration Itching Gentamicin Sulfate 0 drop 04/07/25 09:10 04/10/25 14:23 Gentamicin Op Vita 0.3% 5 Ml Btl BOTH EYES 04/11/25 09:09 2 drop Q4H MARIANO Administration Glucagon 1 mg 04/04/25 19:18 Glucagon Inj 1 Mg Vial IM Q15MIN PRN BG <70, and no IV access Ceftriaxone Sodium/Dextrose 1 gm in 50 mls @ 100 mls/hr 04/06/25 10:57 04/10/25 11:51 Rocephin/D5w 1gm Iv Premix IV 04/13/25 10:56 100 mls/hr QDAY MARIANO Administration Albumin Human 25 gm in 100 mls @ 100 mls/hr 04/08/25 08:36 04/08/25 08:41 Albuminar-25 Ivpb IV 100 mls/hr PRN PRN Administration DIALYSIS Levothyroxine Sodium 112 mcg 04/05/25 06:00 04/10/25 05:26 Levothyroxine Sodium 112 Mcg Tablet PO 05/05/25 05:59 112 mcg ACBR MARIANO Administration Midodrine 5 mg 04/05/25 11:00 04/10/25 14:22 Midodrine 5 Mg Tablet PO 05/05/25 10:59 5 mg TID MARIANO Administration Ondansetron HCl 4 mg 04/04/25 17:40 04/05/25 20:49 Ondansetron Inj 2 Mg/Ml Inj 2 Ml IVP 05/04/25 17:39 4 mg Q6H PRN Administration NAUSEA OR VOMITING Protocol Pantoprazole Sodium 40 mg 04/07/25 09:00 04/10/25 11:52 Pantoprazole 40 Mg Tablet PO 05/07/25 08:59 40 mg BID MARIANO Administration Silver Sulfadiazine 0 gm 04/10/25 21:00 Silver Sulfadiazine Cr 1% 400g 400 Gm Jar TOP 04/17/25 20:59 BID MARIANO Vitamin B Complex/Vit C/Folic Acid 1 tab 04/04/25 19:30 04/10/25 11:52 Vit B12/Vit C/Fa (Nephrovite) Tablet PO 05/04/25 19:29 1 tab QDAY MARIANO Administration Plan Assessment: 59-year-old male patient with past medical history of ESRD on hemodialysis (MWF) follows Dr. Cotton, hypothyroidism, HFpEF, chronic left leg ulcer, questionable bilateral venous insufficiency, history of osteomyelitis, chronic pancytopenia, presented to the ED due to generalized weakness for 3 days. Patient was upgraded to the ICU secondary to septic shock and severe hypoglycemia. Patient has been downgraded from ICU and admitted to Telemetry for management of ongoing issues. #? Malignancy #Bilateral pulmonary nodules #Pulmonary artery hypertension CT chest abdomen pelvis shows pulmonary arterial hypertension, 10 subcentimeter bilateral pulmonary nodules, consider early pulmonary nodular metastatic disease, negative for pneumonia. Plan: - Patient has extensive lymphadenopathy - Discussed with IR, who will do the CT-guided lymph node biopsy from right groin on 04/10/25 with platelet transfusion prior to biopsy. - 1 unit of platelet pre-ordered for Thursday04/09/25 - Consulted Heme-Onc, Appreciate Recomendations - Pt to get biopsy tomorrow, willl tranfuse in the morning prior to procedure #Distributive shock - likely septic shock (resolved) #Severe UTI On presentation patient was found to have MAP on the 30s, was resuscitated with 2.4 L of fluids, 1 unit of blood, his blood pressure continued to have MAP below 65. Lactic acid 3.1, UA more than 17,000 WBCs. Delayed capillary refill more than 3 seconds, warm skin. On presentation, examination his urine noticed to be milky white, patient has history of dysuria and frequency for the past 3 days, noticed to have fever Weaned off Levophed yesterday in ICU Urine Cx negative in the context of abx use Blood Cx negative Plan: - Continue midodrine 5 mg 3 times daily - Zosyn (04/04 to 04/06) ---> Ceftriaxone (04/06- #HFpEF 55 to 60% in December 2024 #Mild aortic stenosis EHO December 2024 showed ejection fraction of 55 to 60%, however patient only reported using Lasix as he does not produce regular amount of urine secondary to his renal failure. Plan: -Continue to monitor urine output closely, -Strict ins and outs -Continue Hemodialysis inpatient #Diarrhea with black tarry stool #GI bleed rule out Patient reported multiple episodes of diarrhea, noticed to be black tarry stool, occult blood test in ED was negative, patient has history of antibiotic use recently. History of EGD done 2 years ago however he does not remember the results. Hemoglobin is chronically low difficult to determine if he has anemia secondary to GI bleed or secondary to his chronic pancytopenia. Fecal occult blood: negative Plan: - Follow stool culture, ova and parasite, C. difficile test PCR - Continue pantoprazole twice daily - Follow H&H as needed - Transfusing 1 unit pRBC today, follow posttransfusion H&H - GI consulted, appreciate recommendations #ESRD on dialysis MWF with Dr. Cotton Cr: 5.1 (7.0) eGFR: 12 BUN 26 Plan: - Nephrology following - Continue dialysis inpatient MWF - Strict in and out #Cirrhosis #Splenomegaly #Pancytopenia, CT abdomen pelvis shows cirrhosis and splenomegaly Underlying cirrhosis likely secondary to NAFLD Patient was found to have recurrent episodes of blood transfusion secondary to severe anemia, low platelets, occasional leukopenia Bone marrow biopsy and aspiration were taken in 2023 however the sample was inconclusive secondary to not enough sample. Bone marrow biopsy from 2022 is normal Plan: - Consider cirrhosis workup outpatient - Monitor CBC daily, follow platelets - Splenomegaly secondary to possible underlying lymphadenopathy/malignancy #Severe hypoglycemia #Questionable adrenal insufficiency Patient has history of recurrent episodes of hypoglycemia in previous admissions, and presentation his blood glucose from venous sample was 55, repeats continue to be in the 50s or 40s. Patient was given D50W and a snack however his blood sugar continued to be in the lower side. Plan: - Continue regular diet after EGD today - Started on stress dose steroids for underlying distributive shock #History of hypothyroidism Continue levothyroxine 112 mcg #History of osteomyelitis of the left tibia and fibula #History of chronic venous ulcer Patient supposed to finish his IV antibiotic for osteomyelitis in January this year, his wound seems to be clean however there is mild swelling of the left leg CT Scan LLE: Prominent cellulitis left lower extremity, Significant lymphadenopathy left pelvis left groin and proximal thigh, Negative for soft tissue abscess, negative for osteomyelitis Plan: Continue IV antibiotic as above, continue wound care, referral to wound care Health Maintenance: Diet: NPO GI prophylaxis: Protonix BID DVT prophylaxis: SCDs Antibiotics: Ceftriaxone CODE STATUS: Full code Disposition: Telemetry Case discussed with my attending Dr. Stefan Rock, PGY-2 Attending Provider Attestation/Addendum I attest that I was physically present for the evaluation, physical examination, lab and imaging review of the patient with the residents. I discussed the case with the residents and agree with the findings and plans of care as documented above. Farrah Aviles MD
[2025-04-09 16:36] LABS: Basophils # (Auto) 0.0 Thou/mm3 (0.0-0.2); Basophils % (Auto) 0 % (0-2.5); Eosinophils # (Auto) 0.3 Thou/mm3 (0.0-0.5); Eosinophils % (Auto) 9 % (0-10); Hematocrit 23.8 % (41.0-53.0); Immature Granulocytes Auto 0.04 Thou/mm3 (0.00-0.00); Lymphocytes # (Auto) 0.5 Thou/mm3 (1.0-4.8); Lymphocytes % (Auto) 14 % (10-50); Mean Corpuscular HGB Conc 34.0 g/dl (31.0-37.0); Mean Corpuscular Hemoglobin 28.6 pg (25.0-35.0); Mean Corpuscular Volume 84 fL (80-100); Monocytes # (Auto) 0.3 Thou/mm3 (0.0-0.8); Monocytes % (Auto) 9 % (0-12); Neutrophils # (Auto) 2.5 Thou/mm3 (1.8-7.7); Neutrophils % (Auto) 67 % (37-80); Nucleated Red Blood Cell # 0.00 Thou/mm3 (0.00-0.00); Nucleated Red Blood Cell % 0 /100 WBC (0); RDW Standard Deviation 47.8 fL (35.1-43.9); Red Blood Count 2.83 Miln/mm3 (4.50-5.90); White Blood Count 3.8 Thou/mm3 (3.8-10.6)
[2025-04-09 16:40] LABS: Hemoglobin 8.1 g/dL (13.5-16.0); Platelet Count 29 Thou/mm3 (140-440)
[2025-04-09 16:41] LABS: Slide Review Platelets confirmed
[2025-04-09 17:36] LABS: Path Review Blood Smear Sent to Pathologist
--- NOTE | 2025-04-09 18:13 | ESPR_ITS ---
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 Hemoglobin stabilized around 8.1 and 23.8 Exam Vital Signs Temp Pulse Resp BP Pulse Ox O2 Del Method O2 Flow Rate 97.7 F 72 19 105/63 99 Room Air 2 04/09/25 16:00 04/09/25 17:03 04/09/25 16:00 04/09/25 16:00 04/09/25 16:00 04/09/25 16:00 04/08/25 17:23 Objective Labs 04/09/25 15:58 04/09/25 03:56 Labs: Laboratory Results - last 24 hr 04/07/25 04/09/25 04/09/25 15:27 03:56 15:58 WBC 3.3 L 3.8 RBC 2.75 L 2.83 L Hgb 7.9 L 8.1 L Hct 24.4 L 23.8 L MCV 89 84 MCH 28.7 28.6 MCHC 32.4 34.0 RDW Std Deviation 49.7 H 47.8 H Plt Count 24 L* 29 L* D Neut % (Auto) 63 67 Lymph % (Auto) 15 14 [place] % (Auto) 10 9 Eos % (Auto) 10 9 Baso % (Auto) 0 0 Neut # (Auto) 2.1 2.5 Lymph # (Auto) 0.5 L 0.5 L [place] # (Auto) 0.3 0.3 Eos # (Auto) 0.3 0.3 Baso # (Auto) 0.0 0.0 Immature Gran # (Auto) 0.03 H 0.04 H Absolute Nucleated RBC 0.00 0.00 Immature Gran % 1 H 1 H Nucleated RBC % 0 0 Smear Path Review Sent to Pathologist Retic Count (auto) 0.7 Absolute Retic 19.8 L Immature Retic Fraction 15.4 H Retic Hgb Content CHr 29.1 Sodium 142 Potassium 3.6 Chloride 102 Carbon Dioxide 29.4 Anion Gap 11 BUN 29 H Creatinine 4.8 H* D Estim Creat Clear Calc 24.5 L eGFR 13 L* BUN/Creatinine Ratio 6 L Glucose 75 Calculated Osmolality 287 Calcium 8.8 Corrected Calcium 9.7 Phosphorus 2.6 Magnesium 1.5 L Total Bilirubin 0.6 AST 32 ALT 25 Alkaline Phosphatase 121 H Lactate Dehydrogenase 150 Total Protein 5.7 Albumin 2.9 L Globulin 2.8 Albumin/Globulin Ratio 1.0 L Misc Test Result Platelets confirmed Platelets confirmed Blood Type O Positive Antibody Screen NEGATIVE Blood Bank Wristband ID Yes Blood Bank Comment PLATP Ready Impressions Impression: Acute posthemorrhagic anemia status post AVM APC treatment Continue to monitor CBC Advance diet Assessment & Plan Time Spent With Patient Time: Total time spent is greater than 50% in coordination of care (as documented) at patient's floor/unit and/or counseling patient:
--- NOTE | 2025-04-09 23:58 | PC.NURSE ---
spoke with dr mcdonald regarding pts diet with upcoming biopsy tomorrow. dr mcdonald states he does not need to be NPO because it is IR, and to continue with regular diet.
[2025-04-10] VITALS (36 sets, daily range): BP systolic 92–142; BP diastolic 46–81; PULSE 50–101; RESP 14–23; TEMP 35.9–36.5; O2SAT 92–100; BMI 38.0
[2025-04-10] MEDS: GENTAMICIN OP SOL 0.3% 5 ML BTL BOTH EYES ×6 (00:12→20:46)
[2025-04-10 04:29] LABS: Basophils # (Auto) 0.0 Thou/mm3 (0.0-0.2); Basophils % (Auto) 0 % (0-2.5); Eosinophils # (Auto) 0.3 Thou/mm3 (0.0-0.5); Eosinophils % (Auto) 7 % (0-10); Hematocrit 23.1 % (41.0-53.0); Immature Granulocytes Auto 0.06 Thou/mm3 (0.00-0.00); Lymphocytes # (Auto) 0.7 Thou/mm3 (1.0-4.8); Lymphocytes % (Auto) 18 % (10-50); Mean Corpuscular HGB Conc 33.8 g/dl (31.0-37.0); Mean Corpuscular Hemoglobin 28.5 pg (25.0-35.0); Mean Corpuscular Volume 84 fL (80-100); Monocytes # (Auto) 0.3 Thou/mm3 (0.0-0.8); Monocytes % (Auto) 9 % (0-12); Neutrophils # (Auto) 2.3 Thou/mm3 (1.8-7.7); Neutrophils % (Auto) 63 % (37-80); Nucleated Red Blood Cell # 0.00 Thou/mm3 (0.00-0.00); Nucleated Red Blood Cell % 0 /100 WBC (0); RDW Standard Deviation 47.3 fL (35.1-43.9); Red Blood Count 2.74 Miln/mm3 (4.50-5.90); White Blood Count 3.7 Thou/mm3 (3.8-10.6)
[2025-04-10 04:32] LABS: Hemoglobin 7.8 g/dL (13.5-16.0); Platelet Count 29 Thou/mm3 (140-440); Slide Review Platelets confirmed
--- NOTE | 2025-04-10 04:39 | PC.NURSE ---
dr de leon notified regarding miscellaneous nursing order to transfuse platelets at 5am after contacting provider. Morning platelet was 29, dr de leon notified. states to not give the platelet that we currently have on hold. Asked again to confirm and states to not give the platelet order, he will pass it on to the day team.
[2025-04-10 04:42] LABS: INR 1.2 (0.9-1.3); Partial Thromboplastin Time 37.0 Seconds (22.0-36.0); Prothrombin Time 13.1 Seconds (9.0-12.2)
[2025-04-10 04:53] LABS: Alanine Aminotransferase 22 U/L (10-49); Albumin, Serum 2.8 gm/dL (3.5-5.0); Albumin/Globulin Ratio 1.1 (1.2-2.2); Alkaline Phosphatase 121 U/L (46-116); Anion Gap 8 (7-16); Aspartate Amino Transferase 23 U/L (0-34); BUN/Creatinine Ratio 6 Ratio (12-20); Bilirubin,Total 0.5 mg/dL (0.3-1.2); Blood Urea Nitrogen 38 mg/dL (9-23); Calcium 9.0 mg/dL (8.3-10.6); Calcium (Corrected) 10.0 mg/dL (8.5-10.1); Carbon Dioxide 29.5 mMol/L (20.0-31.0); Chloride 103 mMol/L (98-107); Creatinine (Component) 6.1 mg/dL (0.6-1.3); Estimated Creatinine Clearance 19.1 mL/min (>60); Globulin 2.6 gm/dL (2.3-3.5); Glucose 91 mg/dL (74-106); Magnesium 1.8 mg/dL (1.6-2.6); Osmolality,Calculated 288 (275-295); Phosphorous 3.0 mg/dL (2.4-5.1); Potassium 3.6 mMol/L (3.4-5.1); Sodium 140 mMol/L (136-145); Total Protein 5.4 gm/dL (5.7-8.2); eGFR 10 See Note
[2025-04-10] MEDS: LEVOTHYROXINE SODIUM 112 MCG TABLET PO (05:26)
[2025-04-10] MEDS: MIDODRINE 5 MG TABLET PO ×3 (05:26→20:47)
--- NOTE | 2025-04-10 09:24 | PD.RESPRO ---
Documentation for date of: 04/10/25 Subjective Subjective Interval history: Sincere Weaver is 59 yr male with PMH of ESRD on HD MWF, chronic thrombocytopenia and anemia of CKD with recurrent biweekly blood transfusions, hypothyroidism, HFpEF, chronic left leg ulcer with bilateral venous insufficiency and stasis dermatitis who presented to ED on 04/04/25 due generalized weakness. He was in the ED several days ago for blood transfusion, he was also found to have low glucose levels around 20-30 when in the ED. Patient was eventually upgraded to ICU due to low MAP in the 40s. Currently on pressor support and hypoglycemia protocol. CT abdomen pelvis showed pulmonary nodules, cirrhosis, splenomegaly LAD. There is concern for cancer. Patient has also lost over 100 pounds in the past year. HD access site through left upper extremity AV fistula. Last session completed this past Thursday. BP soft 89/41. Hemoglobin 9.0, MCV 83, platelets 33, sodium 139, potassium 3.7, BUN 30, creatinine 5.8, GFR 11, elevated lactic acid 2.8. UA positive for UTI. He was started on vancomycin/Zosyn. 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 Patient denies any chest pain, shortness of breath, headache, nausea or vomiting. Does have some lower extremity pain due to his dermatitis and ulcer. 04/06/2025 Patient was seen and examined. Patient does not have acute concerns/complaints. Patient's skin looks much less red after dc'ing the vancomycin. Planning on dialysis today and plan to give patient 1 unit RBC's. Notable labs of Hgb 7.6, Plt 28, PT 13.0, APTT 42.7, sodium 138, potassium 4.4, BUN 41, Cr 7.0, GFR 8, glucose 129, Phos 4.3, Mag 2.1.Patient denies chest pain shortness of breath, nausea, vomiting. Continues to have some lower extremity pain due to his dermatitis and ulcer. 04/07/2025 Patient was seen and examined. Patient does not have acute concerns/complaints. Patient received dialysis last night. Patient this morning states his eyes have crusted over, ordered gentamicin eye drops. Patient continues to be on midodrine 5 tid; vitals and labs reviewed. Notable labs of Hgb 8.3, Plt 27, sodium 138, potassium 3.7, BUN 26, Cr 5.1, GFR 12. Patient is scheduled to get platelet infusion today. Patient denies chest pain shortness of breath, nausea, vomiting. Continues to have some lower extremity pain due to his dermatitis and ulcer. 04/08/2025 Patient was seen and examined. Patient does not have acute concerns/complaints. Patient is receiving dialysis today. Patient denies any chest pain, abdominal pain, fever. Patient continues to be on midodrine 5 tid; vitals and labs reviewed. 04/09/2025 Patient seen and examined at bedside. Requests regular diet and is often very hungry on renal diet. Plan for lymph node biopsy tomorrow, if para-aortic node is too risky and cannot be done, recommend to take biopsy from pelvic lymph node. Cr improving 4.8, BUN improving 29. 04/10/2025 Patient seen and examined at bedside. Patient was given diet this morning, told not to have any due to plan for LN biopsy today. Hemodialysis today. Patient denied new complaints/concerns. Patient denied fever, chest pain, shortness of breath. Exam Vital Signs Temp Pulse Resp BP Pulse Ox O2 Del Method O2 Flow Rate 96.6 F L 64 18 99/57 L 100 Room Air 2 04/10/25 08:12 04/10/25 09:15 04/10/25 08:12 04/10/25 09:15 04/10/25 08:12 04/10/25 04:00 04/08/25 17:23 Narrative Exam General: No acute distress, cooperative HEENT: Bilateral eye crusting; NCAT, No JVD noted. Mucosa moist. Cardiovascular: Normal S1 and S2. Regular rate and rhythm. Respiratory: Lungs are clear to auscultation bilaterally. No wheezing or crackles heard. Abdomen: Soft, nontender, not distended, normal bowel sounds. Skin: Warm to touch, dry, no rashes noted, Large left lower extremity ulcer, AV fistula ++ Musculoskeletal: No gross injuries. Able to move all 4 extremities. B/L LE 2+ pitting edema, Chronic venous stasis dermatitis with warmth, mild (improved) bilateral hand erythema. Neuro: Alert and oriented x3. No focal neuro deficits. Psych: Normal affect and mood Objective Labs 04/11/25 11:41 04/11/25 11:41 Labs: Laboratory Results - last 24 hr 04/07/25 04/09/25 04/09/25 15:27 03:56 15:58 WBC 3.3 L 3.8 RBC 2.75 L 2.83 L Hgb 7.9 L 8.1 L Hct 24.4 L 23.8 L MCV 89 84 MCH 28.7 28.6 MCHC 32.4 34.0 RDW Std Deviation 49.7 H 47.8 H Plt Count 24 L* 29 L* D Neut % (Auto) 63 67 Lymph % (Auto) 15 14 [place] % (Auto) 10 9 Eos % (Auto) 10 9 Baso % (Auto) 0 0 Neut # (Auto) 2.1 2.5 Lymph # (Auto) 0.5 L 0.5 L [place] # (Auto) 0.3 0.3 Eos # (Auto) 0.3 0.3 Baso # (Auto) 0.0 0.0 Immature Gran # (Auto) 0.03 H 0.04 H Absolute Nucleated RBC 0.00 0.00 Immature Gran % 1 H 1 H Nucleated RBC % 0 0 Smear Path Review Sent to Pathologist Retic Count (auto) 0.7 Absolute Retic 19.8 L Immature Retic Fraction 15.4 H Retic Hgb Content CHr 29.1 PT INR APTT Sodium Potassium Chloride Carbon Dioxide Anion Gap BUN Creatinine Estim Creat Clear Calc eGFR BUN/Creatinine Ratio Glucose Calculated Osmolality Calcium Corrected Calcium Phosphorus Magnesium Total Bilirubin AST ALT Alkaline Phosphatase Lactate Dehydrogenase 150 Total Protein Albumin Globulin Albumin/Globulin Ratio Misc Test Result Platelets confirmed Platelets confirmed Blood Type O Positive Antibody Screen NEGATIVE Blood Bank Wristband ID Yes Blood Bank Comment PLATP Ready 04/10/25 04:14 WBC 3.7 L RBC 2.74 L Hgb 7.8 L Hct 23.1 L MCV 84 MCH 28.5 MCHC 33.8 RDW Std Deviation 47.3 H Plt Count 29 L* Neut % (Auto) 63 Lymph % (Auto) 18 [place] % (Auto) 9 Eos % (Auto) 7 Baso % (Auto) 0 Neut # (Auto) 2.3 Lymph # (Auto) 0.7 L [place] # (Auto) 0.3 Eos # (Auto) 0.3 Baso # (Auto) 0.0 Immature Gran # (Auto) 0.06 H Absolute Nucleated RBC 0.00 Immature Gran % 2 H Nucleated RBC % 0 Smear Path Review Retic Count (auto) Absolute Retic Immature Retic Fraction Retic Hgb Content CHr PT 13.1 H INR 1.2 APTT 37.0 H Sodium 140 Potassium 3.6 Chloride 103 Carbon Dioxide 29.5 Anion Gap 8 BUN 38 H Creatinine 6.1 H* D Estim Creat Clear Calc 19.1 L eGFR 10 L* BUN/Creatinine Ratio 6 L Glucose 91 Calculated Osmolality 288 Calcium 9.0 Corrected Calcium 10.0 Phosphorus 3.0 Magnesium 1.8 Total Bilirubin 0.5 AST 23 ALT 22 Alkaline Phosphatase 121 H Lactate Dehydrogenase Total Protein 5.4 L Albumin 2.8 L Globulin 2.6 Albumin/Globulin Ratio 1.1 L Misc Test Result Platelets confirmed Blood Type Antibody Screen Blood Bank Wristband ID Blood Bank Comment Quality Measures Quality Measures VTE prophylaxis Assessment & Plan Assessment Current Active Medications: Generic Name Dose Route Start Last Admin Trade Name Freq PRN Reason Stop Dose Admin Acetaminophen 650 mg 04/04/25 17:40 Acetaminophen 325 Mg Tablet PO 05/04/25 17:39 Q6H PRN PAIN SCALE 1-3 (mild Acetaminophen 650 mg 04/04/25 17:40 Acetaminophen 325 Mg Tablet PO 05/04/25 17:39 Q6H PRN Fever >100.4 Dextrose 25 ml 04/04/25 19:18 04/04/25 21:00 Dextrose 50%-Water Inj 50 Ml Syringe IV 05/04/25 19:17 25 ml Q15MIN PRN Administration BG 50-70 responsive npo pt Dextrose 50 ml 04/04/25 19:18 04/04/25 20:05 Dextrose 50%-Water Inj 50 Ml Syringe IV 05/04/25 19:17 50 ml Q15MIN PRN Administration BG <50 OR BG <70 & pt unresponsive Diphenhydramine HCl 25 mg 04/09/25 14:02 04/10/25 06:05 Diphenhydramine 25 Mg Capsule PO 05/09/25 14:01 25 mg TID PRN Administration Itching Epoetin Leonard 10,000 unit 04/10/25 10:30 Epoetin Leonard-Epbx Inj 10,000 Unit/Ml Vial (Non-Esrd) SC 04/10/25 10:31 X1 ONE Gentamicin Sulfate 0 drop 04/07/25 09:10 04/10/25 05:26 Gentamicin Op Vita 0.3% 5 Ml Btl BOTH EYES 04/11/25 09:09 2 drop Q4H MARIANO Administration Glucagon 1 mg 04/04/25 19:18 Glucagon Inj 1 Mg Vial IM Q15MIN PRN BG <70, and no IV access Ceftriaxone Sodium/Dextrose 1 gm in 50 mls @ 100 mls/hr 04/06/25 10:57 04/09/25 09:15 Rocephin/D5w 1gm Iv Premix IV 04/13/25 10:56 100 mls/hr QDAY MARIANO Administration Albumin Human 25 gm in 100 mls @ 100 mls/hr 04/08/25 08:36 04/08/25 08:41 Albuminar-25 Ivpb IV 100 mls/hr PRN PRN Administration DIALYSIS Magnesium Sulfate 2 gm in 50 mls @ 25 mls/hr 04/10/25 08:15 Magnesium Sulfate Ivpb IV 04/10/25 10:14 X1 ONE Levothyroxine Sodium 112 mcg 04/05/25 06:00 04/10/25 05:26 Levothyroxine Sodium 112 Mcg Tablet PO 05/05/25 05:59 112 mcg ACBR MARIANO Administration Midodrine 5 mg 04/05/25 11:00 04/10/25 05:26 Midodrine 5 Mg Tablet PO 05/05/25 10:59 5 mg TID MARIANO Administration Ondansetron HCl 4 mg 04/04/25 17:40 04/05/25 20:49 Ondansetron Inj 2 Mg/Ml Inj 2 Ml IVP 05/04/25 17:39 4 mg Q6H PRN Administration NAUSEA OR VOMITING Protocol Pantoprazole Sodium 40 mg 04/07/25 09:00 04/09/25 21:09 Pantoprazole 40 Mg Tablet PO 05/07/25 08:59 40 mg BID MARIANO Administration Vitamin B Complex/Vit C/Folic Acid 1 tab 04/04/25 19:30 04/09/25 09:16 Vit B12/Vit C/Fa (Nephrovite) Tablet PO 05/04/25 19:29 1 tab QDAY MARIANO Administration Plan Sincere Weaver is 59 yr male with PMH of ESRD on HD MWF, chronic thrombocytopenia and anemia of CKD with recurrent biweekly blood transfusions, hypothyroidism, HFpEF, chronic left leg ulcer with bilateral venous insufficiency and stasis dermatitis who presented to ED on 04/04/25 due generalized weakness. Nephrology was consulted to resume inpatient dialysis. #ESRD on HD M/W/F #Anemia of chronic disease #Recurrent blood transfusions HD access site through left upper extremity AV fistula. Patient pancytopenic; significant diffuse lymphadenopathy per CT. Received dialysis 04/08, -Dialysis today; Resume MWF dialysis -Plan for lymph node biopsy today -renally dose medications -renal diet -discontinued vancomycin due to red man syndrome reaction in past Persistent hypoglycemia resolved- Combined septic and hypovolemic shock resolved Significant UTI Acute on chronic anemia and thrombocytopenia Neutropenia/pancytopenia Significant metabolic abnormalities Lactic acidosis settings of sepsis and anemia HFpEF 55-60% Diarrhea, likely GI bleed given history above Bilateral lower extremity cellulitis Large left lower extremity ulcer Osteomyelitis of left lower extremity Possible metastatic neoplasm//intra-abdominal lymphadenopathy-hematology was consulted -management continued by ICU team The patient's management plan was discussed with my attending physician Dr. Cotton. Artur Coreas MD PGY-1 Attending Provider Attestation/Addendum Patient seen and examined with resident physician Dr. Coreas. Note reviewed, agree with findings and recommendations. Patient admitted with weakness, symptomatic hypoglycemia. Blood sugars better. Off D10 drip. platelet pheresis ordered with dialysis. Heme-onc was consulted for pancytopenia. Right femoral lymph node was biopsied. Patient currently seen on dialysis. Tolerating dialysis without any problems. Hemodialysis for 3 hours, 2K, ultrafiltration 1 L, Epogen 6000, no heparin ordered. Plan of care discussed with the dialysis nurse. Please see dialysis flowsheet for further details. Spoke to primary team. Platelets still remains low. Etiology unclear.
[2025-04-10] MEDS: EPOETIN ALFA-EPBX INJ 10,000 UNIT/ML VIAL (NON-ESRD) 10000 UNIT SC (10:44)
--- NOTE | 2025-04-10 11:19 | PC.NURSE ---
consulted Dr. Calderón regarging low platelet levels, ok to proceed with lymph node biopsy procedure
[2025-04-10] MEDS: cefTRIAXone/D5w 1gm IV premix 1 GM/50 ML BAG IV (11:51)
--- NOTE | 2025-04-10 11:51 | ESPR_ITS ---
<Statement entered by Laney Rock MD - 04/11/25 12:03> I have reviewed the note and agree with the resident's assessment & plan with exceptions as below. I have personally reviewed labs, imaging, home meds/prior records, examined the patient, formulated and discussed management plan with the IM team. Pt examined at bedside today. We ordered additional platelets for post CT guided biopsy of lymph node to be performed by IR. He is to get platelet transfusion prior to procedure. His platelet count is still in the 20s despite platelet transfusion yesterday. We are considered for platelet qualitative disorder at this time. ITP is on the differential, however, we will not initiate steroids at this time. Pt could have uremic platelet dysfunction but this would typically represent as a qualitative platelet dysfunction rather than a quantitative dysfunction. Pt is currently being worked up for malignancy as lymphoma and other blood disorders cannot be ruled out at this time. Oncology on consult, appreciate recs. His LDH is within normal limits, however his reticulocyte count is low normal, which is something we would not expect in someone with chronic anemia. The patient has had multiple smears in the past showing iron deficiency anemia, and previous bone marrow biopsy has been unremarkable as well. Will follow up with lymph node pathology. Repeat hematology, and chemistry in AM. Laney Rock, PGY-2 Internal Medicine Documentation for date of: 04/10/25 Subjective Subjective Interval history: Patient seen at bedside. No acute overnight events. Patient due to have biopsy of lymph node today with platelet transfusion before. Patient not complaining of any shortness of breath, chest pain, nausea, vomiting, abdominal pain. Exam Vital Signs Temp Pulse Resp BP Pulse Ox O2 Del Method O2 Flow Rate 97.7 F 70 18 100/60 99 Room Air 2 04/10/25 10:06 04/10/25 11:10 04/10/25 10:06 04/10/25 11:10 04/10/25 10:06 04/10/25 04:00 04/08/25 17:23 Narrative Exam General:AO X3. Conversing well. Nontoxic-appearing. HEENT: Normocephalic, atraumatic, mucous membranes moist. Heart: Regular rate and rhythm, no murmurs. Lungs: Good air entry bilaterally, no wheezing or crackles. Abdomen: Soft, nondistended, nontender, positive bowel sounds. ?No guarding or rebound tenderness. Neurologic: no gross neurological deficit, and patient able to move all 4 extremities. Extremities: 2+ bilateral lower extremity edema, chronic venous stasis changes, bilateral petechiae seen upper extremities, cool fingertips. Skin: Left lower extremity wound with granulation tissue some serosanguineous oozing Objective Labs 04/10/25 04:14 04/10/25 04:14 Labs: Laboratory Results - last 24 hr 04/07/25 04/09/25 04/10/25 15:27 15:58 04:14 WBC 3.8 3.7 L RBC 2.83 L 2.74 L Hgb 8.1 L 7.8 L Hct 23.8 L 23.1 L MCV 84 84 MCH 28.6 28.5 MCHC 34.0 33.8 RDW Std Deviation 47.8 H 47.3 H Plt Count 29 L* D 29 L* Neut % (Auto) 67 63 Lymph % (Auto) 14 18 [place] % (Auto) 9 9 Eos % (Auto) 9 7 Baso % (Auto) 0 0 Neut # (Auto) 2.5 2.3 Lymph # (Auto) 0.5 L 0.7 L [place] # (Auto) 0.3 0.3 Eos # (Auto) 0.3 0.3 Baso # (Auto) 0.0 0.0 Immature Gran # (Auto) 0.04 H 0.06 H Absolute Nucleated RBC 0.00 0.00 Immature Gran % 1 H 2 H Nucleated RBC % 0 0 Smear Path Review Sent to Pathologist PT 13.1 H INR 1.2 APTT 37.0 H Sodium 140 Potassium 3.6 Chloride 103 Carbon Dioxide 29.5 Anion Gap 8 BUN 38 H Creatinine 6.1 H* D Estim Creat Clear Calc 19.1 L eGFR 10 L* BUN/Creatinine Ratio 6 L Glucose 91 Calculated Osmolality 288 Calcium 9.0 Corrected Calcium 10.0 Phosphorus 3.0 Magnesium 1.8 Total Bilirubin 0.5 AST 23 ALT 22 Alkaline Phosphatase 121 H Total Protein 5.4 L Albumin 2.8 L Globulin 2.6 Albumin/Globulin Ratio 1.1 L Misc Test Result Platelets confirmed Platelets confirmed Blood Type O Positive Antibody Screen NEGATIVE Blood Bank Wristband ID Yes Blood Bank Comment PLATP Ready Quality Measures Quality Measures VTE prophylaxis Assessment & Plan Assessment Current Active Medications: Generic Name Dose Route Start Last Admin Trade Name Freq PRN Reason Stop Dose Admin Acetaminophen 650 mg 04/04/25 17:40 Acetaminophen 325 Mg Tablet PO 05/04/25 17:39 Q6H PRN PAIN SCALE 1-3 (mild Acetaminophen 650 mg 04/04/25 17:40 Acetaminophen 325 Mg Tablet PO 05/04/25 17:39 Q6H PRN Fever >100.4 Dextrose 25 ml 04/04/25 19:18 04/04/25 21:00 Dextrose 50%-Water Inj 50 Ml Syringe IV 05/04/25 19:17 25 ml Q15MIN PRN Administration BG 50-70 responsive npo pt Dextrose 50 ml 04/04/25 19:18 04/04/25 20:05 Dextrose 50%-Water Inj 50 Ml Syringe IV 05/04/25 19:17 50 ml Q15MIN PRN Administration BG <50 OR BG <70 & pt unresponsive Diphenhydramine HCl 25 mg 04/09/25 14:02 04/10/25 06:05 Diphenhydramine 25 Mg Capsule PO 05/09/25 14:01 25 mg TID PRN Administration Itching Gentamicin Sulfate 0 drop 04/07/25 09:10 04/10/25 05:26 Gentamicin Op Vita 0.3% 5 Ml Btl BOTH EYES 04/11/25 09:09 2 drop Q4H MARIANO Administration Glucagon 1 mg 04/04/25 19:18 Glucagon Inj 1 Mg Vial IM Q15MIN PRN BG <70, and no IV access Ceftriaxone Sodium/Dextrose 1 gm in 50 mls @ 100 mls/hr 04/06/25 10:57 04/09/25 09:15 Rocephin/D5w 1gm Iv Premix IV 04/13/25 10:56 100 mls/hr QDAY MARIANO Administration Albumin Human 25 gm in 100 mls @ 100 mls/hr 04/08/25 08:36 04/08/25 08:41 Albuminar-25 Ivpb IV 100 mls/hr PRN PRN Administration DIALYSIS Levothyroxine Sodium 112 mcg 04/05/25 06:00 04/10/25 05:26 Levothyroxine Sodium 112 Mcg Tablet PO 05/05/25 05:59 112 mcg ACBR MARIANO Administration Midodrine 5 mg 04/05/25 11:00 04/10/25 05:26 Midodrine 5 Mg Tablet PO 05/05/25 10:59 5 mg TID MARIANO Administration Ondansetron HCl 4 mg 04/04/25 17:40 04/05/25 20:49 Ondansetron Inj 2 Mg/Ml Inj 2 Ml IVP 05/04/25 17:39 4 mg Q6H PRN Administration NAUSEA OR VOMITING Protocol Pantoprazole Sodium 40 mg 04/07/25 09:00 04/09/25 21:09 Pantoprazole 40 Mg Tablet PO 05/07/25 08:59 40 mg BID MARIANO Administration Vitamin B Complex/Vit C/Folic Acid 1 tab 04/04/25 19:30 04/09/25 09:16 Vit B12/Vit C/Fa (Nephrovite) Tablet PO 05/04/25 19:29 1 tab QDAY MARIANO Administration Plan 59-year-old male patient with past medical history of ESRD on hemodialysis (MWF) follows Dr. Cotton, hypothyroidism, HFpEF, chronic left leg ulcer, questionable bilateral venous insufficiency, history of osteomyelitis, chronic pancytopenia, presented to the ED due to generalized weakness for 3 days. Patient was upgraded to the ICU secondary to septic shock and severe hypoglycemia. Patient has been downgraded from ICU and admitted to Telemetry for management of ongoing issues. #Bilateral pulmonary nodules #Pulmonary artery hypertension CT chest abdomen pelvis shows pulmonary arterial hypertension, 10 subcentimeter bilateral pulmonary nodules, consider early pulmonary nodular metastatic disease, negative for pneumonia. 04/10/25: Successful CT-guided percutaneous biopsy right common femoral lymph node, Complete pathology report to follow Plan: - Heme-Onc following, Appreciate Recomendations - Awaiting path report #Distributive shock - likely septic shock (resolved) #Severe UTI On presentation patient was found to have MAP on the 30s, was resuscitated with 2.4 L of fluids, 1 unit of blood, his blood pressure continued to have MAP below 65. Lactic acid 3.1, UA more than 17,000 WBCs. Delayed capillary refill more than 3 seconds, warm skin. On presentation, examination his urine noticed to be milky white, patient has history of dysuria and frequency for the past 3 days, noticed to have fever Weaned off Levophed in ICU Urine Cx negative in the context of abx use Blood Cx negative Plan: - Continue midodrine 5 mg 3 times daily - Zosyn (04/04 to 04/06) ---> Ceftriaxone (04/06- #HFpEF 55 to 60% in December 2024 #Mild aortic stenosis EHO December 2024 showed ejection fraction of 55 to 60%, however patient only reported using Lasix as he does not produce regular amount of urine secondary to his renal failure. Plan: -Continue to monitor urine output closely, -Strict ins and outs -Continue Hemodialysis inpatient #Diarrhea with black tarry stool #GI bleed rule out #Arteriovenous malformations Patient reported multiple episodes of diarrhea, noticed to be black tarry stool, occult blood test in ED was negative, patient has history of antibiotic use recently. History of EGD done 2 years ago however he does not remember the results. Hemoglobin is chronically low difficult to determine if he has anemia secondary to GI bleed or secondary to his chronic pancytopenia. Fecal occult blood: negative EGD 04/07/25: Multiple non-bleeding angiodysplastic lesions in the stomach. Erythematous duodenopathy. Erosive duodenitis Plan: - GI following, follow recs - APC laser performed of all these AVMs in the body of the stomach - Continue pantoprazole twice daily - Follow CBC - Avoid NSAIDs #ESRD on dialysis MWF with Dr. Cotton Cr: 6.2 (5.1) eGFR: 18.7 BUN 41 Plan: - Nephrology following, appreciate recs - Continue dialysis inpatient MWF - Strict in and out - Avoid nephrotoxic drugs #Cirrhosis #Splenomegaly #Pancytopenia #Splenic sequestration CT abdomen pelvis shows cirrhosis and splenomegaly Underlying cirrhosis likely secondary to NAFLD Patient was found to have recurrent episodes of blood transfusion secondary to severe anemia, low platelets, occasional leukopenia Bone marrow biopsy and aspiration were taken in 2023 however the sample was inconclusive secondary to not enough sample. Bone marrow biopsy from 2022 is normal Plan: - Consider cirrhosis workup outpatient - Monitor CBC daily, follow platelets - Splenomegaly secondary to possible underlying lymphadenopathy/malignancy #History of hypothyroidism Continue levothyroxine 112 mcg #History of osteomyelitis of the left tibia and fibula #History of chronic venous ulcer Patient supposed to finish his IV antibiotic for osteomyelitis in January this year, his wound seems to be clean however there is mild swelling of the left leg CT Scan LLE: Prominent cellulitis left lower extremity, Significant lymphadenopathy left pelvis left groin and proximal thigh, Negative for soft tissue abscess, negative for osteomyelitis Plan: Continue IV antibiotic as above, continue wound care, referral to wound care #Severe hypoglycemia - resolved Patient has history of recurrent episodes of hypoglycemia in previous admissions, and presentation his blood glucose from venous sample was 55, repeats continue to be in the 50s or 40s. Patient was given D50W and a snack however his blood sugar continued to be in the lower side. Plan: - Follow Glu levels Health Maintenance: Diet: NPO GI prophylaxis: Protonix BID DVT prophylaxis: SCDs Antibiotics: Ceftriaxone CODE STATUS: Full code Disposition: Telemetry Case discussed with my attending Dr. Aviles and senior resident Dr. Shweta Escamilla MD PGY-1 Attending Provider Attestation/Addendum I attest that I was physically present for the evaluation, physical examination, lab and imaging review of the patient with the residents. I discussed the case with the residents and agree with the findings and plans of care as documented above. No acute overnight event, vitals are stable. Lab results show stable hemoglobin at 7.8. Platelet count continues to be low at 29. Undergoing hemodialysis session today with nephrology. He is also lymph node biopsy with IR today, currently n.p.o. for the procedure. We will transfuse him with 1 unit of platelets prior to the procedure. Likely discharge in next 24 hours if remains stable. Farrah Aviles MD
[2025-04-10] MEDS: PANTOPRAZOLE 40 MG TABLET PO ×2 (11:52→20:46)
[2025-04-10] MEDS: VIT B12/Vit C/FA (Nephrovite) TABLET 1 TAB PO (11:52)
[2025-04-10] MEDS: Magnesium Sulfate 2 GM Ivpb 2 GM/50 ML BAG IV (11:58)
--- NOTE | 2025-04-10 12:00 | XR_ITS ---
Examination: CT-guided percutaneous biopsy right common femoral lymph node CT pelvis without intravenous contrast Date and time of procedure: April 10, 2025 1548 hours INDICATIONS: Extensive abdominal pelvic lymphadenopathy on CT study April 04, 2025 Informed consent provided. A timeout was completed verifying correct patient, procedure, site and positioning. Technique: Axial 3 mm sections were obtained for localization of the enlarged right common femoral lymph nodes Appropriate area is marked. The patient's site was prepped and draped in sterile fashion Maximal sterile barrier technique utilized, including hand hygiene Local anesthesia was obtained with 1% lidocaine. Low dose protocols were performed. One or more of the following dose reduction techniques were used; automated exposure control, adjustment of the mA and/or KV according to patient size, use of iterative reconstruction technique. Utilizing CT fluoroscopic guidance 3 core biopsies obtained of an enlarged right common femoral lymph node. Patient appears in stable condition during this procedure. At completion of the procedure, the patient is in satisfactory condition. Estimated blood loss 5 cc Complete pathology report to follow. Impression: Successful CT-guided percutaneous biopsy right common femoral lymph node
[2025-04-10] MEDS: fentaNYL CIT INJ 50 mCg/ML AMP 2ML 25 MCG IVP (15:26)
[2025-04-10] MEDS: ACETAMINOPHEN 325 MG TABLET 650 MG PO (17:33)
--- NOTE | 2025-04-10 19:57 | PD.IMPROG ---
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 Hemoglobin hematocrit 7.8 and 23.1 Exam Vital Signs Temp Pulse Resp BP Pulse Ox O2 Del Method O2 Flow Rate 97.4 F 93 19 105/46 L 94 L Room Air 3 04/10/25 18:40 04/10/25 18:40 04/10/25 18:40 04/10/25 18:40 04/10/25 18:40 04/10/25 16:00 04/10/25 15:40 Objective Labs 04/10/25 04:14 04/10/25 04:14 Labs: Laboratory Results - last 24 hr 04/07/25 04/10/25 04/10/25 15:27 04:14 16:10 WBC 3.7 L RBC 2.74 L Hgb 7.8 L Hct 23.1 L MCV 84 MCH 28.5 MCHC 33.8 RDW Std Deviation 47.3 H Plt Count 29 L* Neut % (Auto) 63 Lymph % (Auto) 18 [place] % (Auto) 9 Eos % (Auto) 7 Baso % (Auto) 0 Neut # (Auto) 2.3 Lymph # (Auto) 0.7 L [place] # (Auto) 0.3 Eos # (Auto) 0.3 Baso # (Auto) 0.0 Immature Gran # (Auto) 0.06 H Absolute Nucleated RBC 0.00 Immature Gran % 2 H Nucleated RBC % 0 PT 13.1 H INR 1.2 APTT 37.0 H Sodium 140 Potassium 3.6 Chloride 103 Carbon Dioxide 29.5 Anion Gap 8 BUN 38 H Creatinine 6.1 H* D Estim Creat Clear Calc 19.1 L eGFR 10 L* BUN/Creatinine Ratio 6 L Glucose 91 Calculated Osmolality 288 Calcium 9.0 Corrected Calcium 10.0 Phosphorus 3.0 Magnesium 1.8 Total Bilirubin 0.5 AST 23 ALT 22 Alkaline Phosphatase 121 H Total Protein 5.4 L Albumin 2.8 L Globulin 2.6 Albumin/Globulin Ratio 1.1 L Misc Test Result Platelets confirmed Blood Type O Positive O Positive Antibody Screen NEGATIVE NEGATIVE Blood Bank Wristband ID Yes Yes Blood Bank Comment PLATP Ready PLATP Ready Impressions Impression: Posthemorrhagic anemia secondary to bleeding from the AVMs gastric body Patient status post APC laser Hold of the colonoscopy Continue to follow CBC and avoid NSAIDs Assessment & Plan Time Spent With Patient Time: Total time spent is greater than 50% in coordination of care (as documented) at patient's floor/unit and/or counseling patient:
[2025-04-10] MEDS: SILVER SULFADIAZINE CR 1% 400G 400 GM JAR TOP (20:46)
[2025-04-11] VITALS (7 sets, daily range): BP systolic 103–118; BP diastolic 55–65; PULSE 65–99; RESP 18–21; TEMP 36.1–37.1; O2SAT 92–99; BMI 37.8; BMI 14.0
[2025-04-11] MEDS: LEVOTHYROXINE SODIUM 112 MCG TABLET PO (04:55)
[2025-04-11] MEDS: MIDODRINE 5 MG TABLET PO ×2 (04:55→13:05)
[2025-04-11] MEDS: GENTAMICIN OP SOL 0.3% 5 ML BTL BOTH EYES (04:56)
--- NOTE | 2025-04-11 08:37 | ESPR_ITS ---
Documentation for date of: 04/11/25 Subjective Subjective Interval history: Sincere Weaver is 59 yr male with PMH of ESRD on HD MWF, chronic thrombocytopenia and anemia of CKD with recurrent biweekly blood transfusions, hypothyroidism, HFpEF, chronic left leg ulcer with bilateral venous insufficiency and stasis dermatitis who presented to ED on 04/04/25 due generalized weakness. He was in the ED several days ago for blood transfusion, he was also found to have low glucose levels around 20-30 when in the ED. Patient was eventually upgraded to ICU due to low MAP in the 40s. Currently on pressor support and hypoglycemia protocol. CT abdomen pelvis showed pulmonary nodules, cirrhosis, splenomegaly LAD. There is concern for cancer. Patient has also lost over 100 pounds in the past year. HD access site through left upper extremity AV fistula. Last session completed this past Thursday. BP soft 89/41. Hemoglobin 9.0, MCV 83, platelets 33, sodium 139, potassium 3.7, BUN 30, creatinine 5.8, GFR 11, elevated lactic acid 2.8. UA positive for UTI. He was started on vancomycin/Zosyn. 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 Patient denies any chest pain, shortness of breath, headache, nausea or vomiting. Does have some lower extremity pain due to his dermatitis and ulcer. 04/06/2025 Patient was seen and examined. Patient does not have acute concerns/complaints. Patient's skin looks much less red after dc'ing the vancomycin. Planning on dialysis today and plan to give patient 1 unit RBC's. Notable labs of Hgb 7.6, Plt 28, PT 13.0, APTT 42.7, sodium 138, potassium 4.4, BUN 41, Cr 7.0, GFR 8, glucose 129, Phos 4.3, Mag 2.1.Patient denies chest pain shortness of breath, nausea, vomiting. Continues to have some lower extremity pain due to his dermatitis and ulcer. 04/07/2025 Patient was seen and examined. Patient does not have acute concerns/complaints. Patient received dialysis last night. Patient this morning states his eyes have crusted over, ordered gentamicin eye drops. Patient continues to be on midodrine 5 tid; vitals and labs reviewed. Notable labs of Hgb 8.3, Plt 27, sodium 138, potassium 3.7, BUN 26, Cr 5.1, GFR 12. Patient is scheduled to get platelet infusion today. Patient denies chest pain shortness of breath, nausea, vomiting. Continues to have some lower extremity pain due to his dermatitis and ulcer. 04/08/2025 Patient was seen and examined. Patient does not have acute concerns/complaints. Patient is receiving dialysis today. Patient denies any chest pain, abdominal pain, fever. Patient continues to be on midodrine 5 tid; vitals and labs reviewed. 04/09/2025 Patient seen and examined at bedside. Requests regular diet and is often very hungry on renal diet. Plan for lymph node biopsy tomorrow, if para- aortic node is too risky and cannot be done, recommend to take biopsy from pelvic lymph node. Cr improving 4.8, BUN improving 29. 04/10/2025 Patient seen and examined at bedside. Patient was given diet this morning, told not to have any due to plan for LN biopsy today. Hemodialysis today. Patient denied new complaints/concerns. Patient denied fever, chest pain, shortness of breath. 04/11/2025 No acute events overnight. Patient seen and examined at bedside. Patient was given regular diet this morning. Patient's R groin LN biopsy was done yesterday, will follow up results outpatient. Dialysis completed yesterday. Will need heme/onc follow up for thrombocytopenia. Plan to be DC'd today. Exam Vital Signs Temp Pulse Resp BP Pulse Ox O2 Del Method O2 Flow Rate 98.8 F 70 19 103/55 L 92 L Room Air 3 04/11/25 04:00 04/11/25 04:55 04/11/25 04:00 04/11/25 04:55 04/11/25 04:00 04/11/25 04:00 04/10/25 15:40 Narrative Exam General: No acute distress, cooperative HEENT: Bilateral eye crusting; NCAT, No JVD noted. Mucosa moist. Cardiovascular: Normal S1 and S2. Regular rate and rhythm. Respiratory: Lungs are clear to auscultation bilaterally. No wheezing or crackles heard. Abdomen: Soft, nontender, not distended, normal bowel sounds. Skin: Warm to touch, dry, no rashes noted, Large left lower extremity ulcer, AV fistula ++ Musculoskeletal: No gross injuries. Able to move all 4 extremities. B/L LE 2+ pitting edema, Chronic venous stasis dermatitis with warmth, mild (improved) bilateral hand erythema. Neuro: Alert and oriented x3. No focal neuro deficits. Psych: Normal affect and mood Objective Labs 04/11/25 11:41 04/11/25 11:41 Labs: Laboratory Results - last 24 hr 04/07/25 04/10/25 15:27 16:10 Blood Type O Positive O Positive Antibody Screen NEGATIVE NEGATIVE Blood Bank Wristband ID Yes Yes Blood Bank Comment PLATP Ready PLATP Ready Quality Measures Quality Measures VTE prophylaxis Assessment & Plan Assessment Current Active Medications: Generic Name Dose Route Start Last Admin Trade Name Freq PRN Reason Stop Dose Admin Acetaminophen 650 mg 04/04/25 17:40 04/10/25 17:33 Acetaminophen 325 Mg Tablet PO 05/04/25 17:39 650 mg Q6H PRN Administration PAIN SCALE 1-3 (mild Acetaminophen 650 mg 04/04/25 17:40 Acetaminophen 325 Mg Tablet PO 05/04/25 17:39 Q6H PRN Fever >100.4 Dextrose 25 ml 04/04/25 19:18 04/04/25 21:00 Dextrose 50%-Water Inj 50 Ml Syringe IV 05/04/25 19:17 25 ml Q15MIN PRN Administration BG 50-70 responsive npo pt Dextrose 50 ml 04/04/25 19:18 04/04/25 20:05 Dextrose 50%-Water Inj 50 Ml Syringe IV 05/04/25 19:17 50 ml Q15MIN PRN Administration BG <50 OR BG <70 & pt unresponsive Diphenhydramine HCl 25 mg 04/09/25 14:02 04/11/25 04:55 Diphenhydramine 25 Mg Capsule PO 05/09/25 14:01 25 mg TID PRN Administration Itching Gentamicin Sulfate 0 drop 04/07/25 09:10 04/11/25 04:56 Gentamicin Op Vita 0.3% 5 Ml Btl BOTH EYES 04/11/25 09:09 2 drop Q4H MARIANO Administration Glucagon 1 mg 04/04/25 19:18 Glucagon Inj 1 Mg Vial IM Q15MIN PRN BG <70, and no IV access Ceftriaxone Sodium/Dextrose 1 gm in 50 mls @ 100 mls/hr 04/06/25 10:57 04/10/25 11:51 Rocephin/D5w 1gm Iv Premix IV 04/13/25 10:56 100 mls/hr QDAY MARIANO Administration Albumin Human 25 gm in 100 mls @ 100 mls/hr 04/08/25 08:36 04/08/25 08:41 Albuminar-25 Ivpb IV 100 mls/hr PRN PRN Administration DIALYSIS Levothyroxine Sodium 112 mcg 04/05/25 06:00 04/11/25 04:55 Levothyroxine Sodium 112 Mcg Tablet PO 05/05/25 05:59 112 mcg ACBR MARIANO Administration Midodrine 5 mg 04/05/25 11:00 04/11/25 04:55 Midodrine 5 Mg Tablet PO 05/05/25 10:59 5 mg TID MARIANO Administration Ondansetron HCl 4 mg 04/04/25 17:40 04/05/25 20:49 Ondansetron Inj 2 Mg/Ml Inj 2 Ml IVP 05/04/25 17:39 4 mg Q6H PRN Administration NAUSEA OR VOMITING Protocol Pantoprazole Sodium 40 mg 04/07/25 09:00 04/10/25 20:46 Pantoprazole 40 Mg Tablet PO 05/07/25 08:59 40 mg BID MARIANO Administration Silver Sulfadiazine 0 gm 04/10/25 21:00 04/10/25 20:46 Silver Sulfadiazine Cr 1% 400g 400 Gm Jar TOP 04/17/25 20:59 1 appln BID MARIANO Administration Vitamin B Complex/Vit C/Folic Acid 1 tab 04/04/25 19:30 04/10/25 11:52 Vit B12/Vit C/Fa (Nephrovite) Tablet PO 05/04/25 19:29 1 tab QDAY MARIANO Administration Plan Sincere Weaver is 59 yr male with PMH of ESRD on HD MWF, chronic thrombocytopenia and anemia of CKD with recurrent biweekly blood transfusions, hypothyroidism, HFpEF, chronic left leg ulcer with bilateral venous insufficiency and stasis dermatitis who presented to ED on 04/04/25 due generalized weakness. Nephrology was consulted to resume inpatient dialysis. #ESRD on HD M/W/F #Anemia of chronic disease #Recurrent blood transfusions HD access site through left upper extremity AV fistula. Patient pancytopenic; significant diffuse lymphadenopathy per CT. Received dialysis 04/10, -MWF dialysis -Will need Heme/Onc follow up outpatient for thrombocytopenia -LN Bx completed yesterday, f/u results outpatient -renally dose medications -regular diet -discontinued vancomycin due to red man syndrome reaction in past Persistent hypoglycemia resolved- Combined septic and hypovolemic shock resolved Significant UTI Acute on chronic anemia and thrombocytopenia Neutropenia/pancytopenia Significant metabolic abnormalities Lactic acidosis settings of sepsis and anemia HFpEF 55-60% Diarrhea, likely GI bleed given history above Bilateral lower extremity cellulitis Large left lower extremity ulcer Osteomyelitis of left lower extremity Possible metastatic neoplasm//intra-abdominal lymphadenopathy-hematology was consulted -management continued by ICU team The patient's management plan was discussed with my attending physician Dr. Cotton. Artur Coreas MD PGY-1 Attending Provider Attestation/Addendum Patient seen and examined with resident physician Dr. Coreas. Note reviewed, agree with findings and recommendations. Patient admitted with weakness, symptomatic hypoglycemia. Blood sugars better. Off D10 drip. platelet pheresis ordered with dialysis. Heme-onc was consulted for pancytopenia. Right groin lymph node biopsy came back reactive with no evidence of malignancy. Patient's platelets are too low to do any intra-abdominal lymph node biopsy. No active bleed. He wants to go home. He declines to go to rehab. Renal morelos stable for discharge to home with home health. Next dialysis will be in the outpatient setting tomorrow. Spoke to primary team. Recommended to follow-up with wound care center and hematology.
[2025-04-11] MEDS: cefTRIAXone/D5w 1gm IV premix 1 GM/50 ML BAG IV (09:31)
[2025-04-11] MEDS: VIT B12/Vit C/FA (Nephrovite) TABLET 1 TAB PO (09:32)
[2025-04-11] MEDS: SILVER SULFADIAZINE CR 1% 400G 400 GM JAR TOP (09:32)
[2025-04-11] MEDS: PANTOPRAZOLE 40 MG TABLET PO (09:32)
--- NOTE | 2025-04-11 10:29 | PC.SS ---
Addendum entered by Lore Harris 04/11/25 15:36: Vanda in plans. Patient changed his mind again and is agreeable after working with PT to discharge to SNF short term. [facility] no longer has a bed but [facility] has agreed to take patient today. Patient is agreeable. SS will arrange [facility] transport with [facility]. They have a tentative crop picker for 7:30pm-7:45p.m SS left [facility] dialysis a message that patient was being discharged today and will start his regular dialysis tomorrow. Addendum entered by Lore Harris 04/11/25 11:35: SS contacted [employer] to provide information. SS spoke to Georgiana Morgan @ [employer] and she states patient does not feel their criteria for a dependent adult. He is not elderly, disabled or dependent on anyone. He is just making bad decisions. He technically has the right to make those decisions. They would not be investigating any report if he does not meet their criteria. Patient will return home with no further d/c needs as he is refusing SNF and HH services. He will need transport set up through [facility]. Original Note: Follow up note: SS met with patient at bedside to discuss final d/c plans. SS provided d/c options of SNF vs HH. Patient refused both services. He stated that if anyone came to his home they would condemn it. He stated he's been weak and hasn't been able to clean his home and has trash everywhere. He has cats everywhere and hasn't been able to clean their liter boxes. Patient states he has no one able to help him. SS will file an [employer] report for self neglect. Updated physician team. Requested PT eval. Patient states he already has a walker at home. He will require transport.
[2025-04-11 11:59] LABS: Basophils # (Auto) 0.0 Thou/mm3 (0.0-0.2); Basophils % (Auto) 0 % (0-2.5); Eosinophils # (Auto) 0.2 Thou/mm3 (0.0-0.5); Monocytes # (Auto) 0.4 Thou/mm3 (0.0-0.8); Neutrophils # (Auto) 2.6 Thou/mm3 (1.8-7.7); Nucleated Red Blood Cell # 0.00 Thou/mm3 (0.00-0.00); Nucleated Red Blood Cell % 0 /100 WBC (0); White Blood Count 3.9 Thou/mm3 (3.8-10.6)
[2025-04-11 12:00] LABS: Eosinophils % (Auto) 5 % (0-10); Hematocrit 22.2 % (41.0-53.0); Immature Granulocytes Auto 0.06 Thou/mm3 (0.00-0.00); Lymphocytes # (Auto) 0.6 Thou/mm3 (1.0-4.8); Lymphocytes % (Auto) 16 % (10-50); Mean Corpuscular HGB Conc 34.2 g/dl (31.0-37.0); Mean Corpuscular Hemoglobin 28.9 pg (25.0-35.0); Mean Corpuscular Volume 84 fL (80-100); Monocytes % (Auto) 10 % (0-12); Neutrophils % (Auto) 67 % (37-80); RDW Standard Deviation 47.2 fL (35.1-43.9); Red Blood Count 2.63 Miln/mm3 (4.50-5.90)
[2025-04-11 12:22] LABS: Alanine Aminotransferase 19 U/L (10-49); Albumin, Serum 3.1 gm/dL (3.5-5.0); Albumin/Globulin Ratio 1.1 (1.2-2.2); Alkaline Phosphatase 104 U/L (46-116); Anion Gap 9 (7-16); Aspartate Amino Transferase 22 U/L (0-34); BUN/Creatinine Ratio 7 Ratio (12-20); Bilirubin,Total 0.5 mg/dL (0.3-1.2); Blood Urea Nitrogen 37 mg/dL (9-23); Calcium 9.2 mg/dL (8.3-10.6); Calcium (Corrected) 9.9 mg/dL (8.5-10.1); Carbon Dioxide 29.2 mMol/L (20.0-31.0); Chloride 102 mMol/L (98-107); Creatinine (Component) 5.2 mg/dL (0.6-1.3); Estimated Creatinine Clearance 22.5 mL/min (>60); Globulin 2.9 gm/dL (2.3-3.5); Glucose 100 mg/dL (74-106); Osmolality,Calculated 288 (275-295); Potassium 3.6 mMol/L (3.4-5.1); Sodium 140 mMol/L (136-145); Total Protein 6.0 gm/dL (5.7-8.2); eGFR 12 See Note
[2025-04-11 12:23] LABS: Hemoglobin 7.6 g/dL (13.5-16.0); Platelet Count 51 Thou/mm3 (140-440)
[2025-04-11 12:53] LABS: Slide Review Platelets confirmed
--- NOTE | 2025-04-11 14:34 | PD.RESPRO ---
Documentation for date of: 04/11/25 Exam Vital Signs Temp Pulse Resp BP Pulse Ox O2 Del Method O2 Flow Rate 98.4 F 99 18 107/65 93 L Room Air 3 04/11/25 08:00 04/11/25 13:05 04/11/25 08:00 04/11/25 13:05 04/11/25 08:00 04/11/25 08:00 04/10/25 15:40 Objective Labs 04/11/25 11:41 04/11/25 11:41 Labs: Laboratory Results - last 24 hr 04/07/25 04/10/25 04/11/25 15:27 16:10 11:41 WBC 3.9 RBC 2.63 L Hgb 7.6 L Hct 22.2 L MCV 84 MCH 28.9 MCHC 34.2 RDW Std Deviation 47.2 H Plt Count 51 L D Neut % (Auto) 67 Lymph % (Auto) 16 [place] % (Auto) 10 Eos % (Auto) 5 Baso % (Auto) 0 Neut # (Auto) 2.6 Lymph # (Auto) 0.6 L [place] # (Auto) 0.4 Eos # (Auto) 0.2 Baso # (Auto) 0.0 Immature Gran # (Auto) 0.06 H Absolute Nucleated RBC 0.00 Immature Gran % 2 H Nucleated RBC % 0 Sodium 140 Potassium 3.6 Chloride 102 Carbon Dioxide 29.2 Anion Gap 9 BUN 37 H Creatinine 5.2 H* D Estim Creat Clear Calc 22.5 L eGFR 12 L* BUN/Creatinine Ratio 7 L Glucose 100 Calculated Osmolality 288 Calcium 9.2 Corrected Calcium 9.9 Total Bilirubin 0.5 AST 22 ALT 19 Alkaline Phosphatase 104 Total Protein 6.0 Albumin 3.1 L Globulin 2.9 Albumin/Globulin Ratio 1.1 L Misc Test Result Platelets confirmed Blood Type O Positive O Positive Antibody Screen NEGATIVE NEGATIVE Blood Bank Wristband ID Yes Yes Blood Bank Comment PLATP Ready PLATP Ready Quality Measures Quality Measures VTE prophylaxis Assessment & Plan Assessment Current Active Medications: Generic Name Dose Route Start Last Admin Trade Name Freq PRN Reason Stop Dose Admin Acetaminophen 650 mg 04/04/25 17:40 04/10/25 17:33 Acetaminophen 325 Mg Tablet PO 05/04/25 17:39 650 mg Q6H PRN Administration PAIN SCALE 1-3 (mild Acetaminophen 650 mg 04/04/25 17:40 Acetaminophen 325 Mg Tablet PO 05/04/25 17:39 Q6H PRN Fever >100.4 Dextrose 25 ml 04/04/25 19:18 04/04/25 21:00 Dextrose 50%-Water Inj 50 Ml Syringe IV 05/04/25 19:17 25 ml Q15MIN PRN Administration BG 50-70 responsive npo pt Dextrose 50 ml 04/04/25 19:18 04/04/25 20:05 Dextrose 50%-Water Inj 50 Ml Syringe IV 05/04/25 19:17 50 ml Q15MIN PRN Administration BG <50 OR BG <70 & pt unresponsive Diphenhydramine HCl 25 mg 04/09/25 14:02 04/11/25 13:05 Diphenhydramine 25 Mg Capsule PO 05/09/25 14:01 25 mg TID PRN Administration Itching Glucagon 1 mg 04/04/25 19:18 Glucagon Inj 1 Mg Vial IM Q15MIN PRN BG <70, and no IV access Albumin Human 25 gm in 100 mls @ 100 mls/hr 04/08/25 08:36 04/08/25 08:41 Albuminar-25 Ivpb IV 100 mls/hr PRN PRN Administration DIALYSIS Levothyroxine Sodium 112 mcg 04/05/25 06:00 04/11/25 04:55 Levothyroxine Sodium 112 Mcg Tablet PO 05/05/25 05:59 112 mcg ACBR MARIANO Administration Midodrine 5 mg 04/05/25 11:00 04/11/25 13:05 Midodrine 5 Mg Tablet PO 05/05/25 10:59 5 mg TID MARIANO Administration Ondansetron HCl 4 mg 04/04/25 17:40 04/05/25 20:49 Ondansetron Inj 2 Mg/Ml Inj 2 Ml IVP 05/04/25 17:39 4 mg Q6H PRN Administration NAUSEA OR VOMITING Protocol Pantoprazole Sodium 40 mg 04/07/25 09:00 04/11/25 09:32 Pantoprazole 40 Mg Tablet PO 05/07/25 08:59 40 mg BID MARIANO Administration Silver Sulfadiazine 0 gm 04/10/25 21:00 04/11/25 09:32 Silver Sulfadiazine Cr 1% 400g 400 Gm Jar TOP 04/17/25 20:59 1 appln BID MARIANO Administration Vitamin B Complex/Vit C/Folic Acid 1 tab 04/04/25 19:30 04/11/25 09:32 Vit B12/Vit C/Fa (Nephrovite) Tablet PO 05/04/25 19:29 1 tab QDAY MARIANO Administration
--- NOTE | 2025-04-11 15:24 | PC.PT ---
Patient is safe to ambulate to the bathroom with a FWW and 1 staff assist. RN made aware.
--- NOTE | 2025-04-11 16:22 | PC.NURSE ---
PT with discharge orders; transportation is set up with [facility] and set for 1929. Pt with orders to DC central line. Verified with Niyah Charge Nurse and central line is to be removed 15-20 minutes prior to discharge. PT has no other IV access and is a hard stick, hence the central line. Arrangements will be after shift change and will endorse to oncoming nurse.
--- NOTE | 2025-04-11 18:06 | ESDS_ITS ---
<Statement entered by Sherine Hinds MD - 04/11/25 18:12> A 59-year-old male with ESRD on hemodialysis, hypothyroidism, HFpEF, chronic pancytopenia with recurrent transfusions, cirrhosis with splenomegaly, chronic venous leg ulcers, and a history of osteomyelitis presented with generalized weakness for three days. He was admitted in septic shock with severe hypoglycemia and was initially managed in the ICU with vasopressors, IV fluids, blood transfusion, and antibiotics. He has since stabilized and was downgraded to the telemetry unit for ongoing management. Imaging revealed bilateral subcentimeter pulmonary nodules and pulmonary artery hypertension, raising concern for early metastatic disease. A CT-guided biopsy of the right femoral lymph node was performed, and hematology/oncology is involved while pathology results showed inflammatory changes. He will continue to follow-up oupatient for further malignancy work-up. We recommended repeat biopsy outpatient which was deferred during this visit secondary to high risk of bleed as a result of low platelets despite multiple transfusions. Of note, more CT showed significantly enlarged spleen, likely he has splenic sequestration which likely explains poor response to platelet transfusions The patient had a presumed urinary tract infection contributing to sepsis, with a history of dysuria and fever. Despite negative cultures, he continues on antibiotics (initially Zosyn, now ceftriaxone), and midodrine is used for blood pressure support. The patient also reported black, tarry stools and diarrhea, prompting a GI workup. EGD revealed multiple non-bleeding angiodysplastic lesions in the stomach and duodenitis. APC laser therapy was performed to cauterize AVMs, and he remains on pantoprazole. Chronic anemia is multifactorial, possibly related to GI losses, chronic pancytopenia, and splenic sequestration. He continues to require close monitoring of hemoglobin and platelet counts. He remains on thrice-weekly hemodialysis, with nephrology involved. 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 Further outpatient workup is planned. The patient also has a history of chronic osteomyelitis and left leg ulcers; although there is no current evidence of active osteomyelitis, imaging shows cellulitis and lymphadenopathy, and he continues IV antibiotics with wound care. Lastly, his hypoglycemia has resolved, but given a history of recurrent episodes, recommended outpatient follow-up. Of note: We've ordered gonorrhea chlamydia swab, and informed patient to have his PCP follow-up with results. I?ve reviewed the note and agree with the resident's assessment and plan, with the exceptions outlined above. I personally went over the labs, imaging, home medications, and prior records, and examined the patient. The case was also reviewed with the attending physician. Please note: this document was transcribed using voice recognition technology; minor inaccuracies may be present. Sherine Hinds DO PGY II Planned Discharge Date 04/11/25 DS: Providers Provider Date of admission: 04/04/25 17:40 Primary care physician: Shad Cotton MD Admitting Provider: Kimberly Lauren DO Attending Provider on Admission: Farrah Aviles MD Consults: 04/04/25 17:42 Consult to Nephrology Routine Comment: Dialysis Consulting Provider: Shad Cotton 04/04/25 21:50 Health Equity Referral - Knowledge Deficit Routine Comment: Positive screening for knowledge deficit needs. Health Equity Referral - Nutrition Routine Comment: Positive screening for nutrition needs. Health Equity Referral - Transportation Routine Comment: Positive screening for transportation needs. Health Equity Referral - Utilities Routine Comment: Positive screening for utility assistance needs. 04/06/25 10:55 Consult to Hematology Stat Comment: Pancytopenia Consulting Provider: Dariel Epperson 04/06/25 10:56 Consult to Gastroenterology Stat Comment: anemia Consulting Provider: Fletcher Azar 04/08/25 05:43 Referral Wound Care Routine Comment: LLE chronic venous insufficiency wound 04/10/25 13:38 Referral Nutritional Services Routine Comment: Wounds Referral OP Wound Healing Dept Routine Comment: LLE venous ulcer 04/11/25 09:48 Referral Physical Therapy Stat Comment: Physician Instructions: Instructions: D/C pending Attending Provider on DC: Nima Bucio DO Discharging Provider: Nima Bucio DO DS: Diagnosis Problem List Completed Was Problem List Reviewed/Reconciled?: Yes Hospital Course Hospital Course Hospital course: 51-year-old male with complex PMHx of ESRD on HD MWF, chronic thrombocytopenia and anemia of CKD with recurrent biweekly blood transfusions, hypothyroidism, HFpEF, chronic left leg ulcer with bilateral venous insufficiency and stasis dermatitis, presenting to ED with generalized weakness. ED course: The patient presented with critical vital sign abnormalities, including a fever of 101.3?F, severe hypotension at 63/38 mmHg, and an elevated heart rate of 89 bpm. Lab results revealed leukopenia (2.8 K/uL), severe anemia (5.2 g/dL), and thrombocytopenia (24 K/uL). Coagulation studies showed PT 12.9 seconds, INR 1.2, and APTT 42.4 seconds. Electrolyte imbalances included hypernatremia (147 mEq/L) and hypokalemia (3.1 mEq/L), with creatinine at 3.6 mg/dL. The patient also exhibited profound hypoglycemia (30 mg/dL) and hypomagnesemia (0.6 mEq/L). Lactic acid was elevated (3.1 > 3.2 mmol/L), troponin was trending up (0.047 > 0.078 ng/mL), and CRP was high (13.4 mg/dL). Urinalysis was abnormal, showing an orange, cloudy specimen with 2+ protein, 2+ blood, and signs of infection (positive leukocyte esterase, 17K WBCs, 219 RBCs). Imaging findings were extensive: a CXR indicated mild heart failure, while an abdominal CT revealed pulmonary arterial hypertension, 10 bilateral pulmonary nodules concerning for metastatic lung disease, cirrhosis, splenomegaly, cholelithiasis, end-stage holy cross kidneys, and significant lymphadenopathy suggesting lymphoma. A lower extremity CT confirmed prominent cellulitis with significant regional lymp hadenopathy, ruling out abscess or osteomyelitis. ICU team was consulted and accepted the patient for pressor support and management of shock as well as hypoglycemia protocol. ICU course: The patient's 2-day ICU course focused on stabilizing distributive shock, managing persistent hypoglycemia, and addressing pancytopenia potentially linked to internal bleeding. D10 was discontinued and a hypoglycemia protocol initiated due to inconsistent glucose readings and the presence of bilateral upper extremity petechiae, while stress dose steroids and midodrine were started to wean pressors for shock. Plans were made for an IR biopsy of concerning nodules, considering platelet transfusion pre-procedure, and GI bleeding was monitored with ongoing Protonix and pending occult blood tests. On 2nd day the patient was off pressors with stable central line glucose levels, but continued hemoglobin decline prompted gastroenterology consultation and the patient received PRBC and platelet transfusions, in addition to scheduled hemodialysis. Hematology- Oncology was consulted for pancytopenia, noting previous negative bone marrow biopsies and prior consultation. After ensuring continued midodrine for blood pressure control and ordering stool studies, the patient was deemed stable and downgraded to telemetry. Telemetry course: On telemetry, the primary concern revolved around persistent thrombocytopenia, with platelet counts remaining in the 20s despite prior transfusions, prompting consideration of a qualitative platelet disorder. The patient received a CT- guided lymph node biopsy by Interventional Radiology, with additional platelet transfusion beforehand. Biopsy showed inflammatory changes and he may need repeat biopsy and follow up with Dr. Epperson (heme/onc) Ongoing workup for malignancy, specifically lymphoma and other blood disorders, continued. Although LDH was normal, a low-normal reticulocyte count was noted, which was unexpected given chronic anemia, and previous smears indicated iron deficiency with an unremarkable bone marrow biopsy history. He also presented with black, tarry stools and diarrhea. An EGD revealed multiple non-bleeding angiodysplastic lesions in the stomach and duodenitis, which were treated with APC laser therapy. He remains on pantoprazole. His chronic anemia was considered multifactorial, stemming from possible GI losses, chronic pancytopenia, and splenic sequestration. His hemoglobin and platelet counts required close monitoring. Hematology/oncology is involved, and he will have further outpatient malignancy work-up. Patient is stable at time of discharge. A Gonococcal swab has been ordered and needs to be followed outpatient. Discharge instructions: * Follow-up with PCP within 1-2 weeks of discharge. * Continue to to see heme-onc, Dr. Epperson, recommended follow-up within 1 week of discharge. * Recommended repeat CBC within 3 to 7 days of discharge. * Follow-up with PCP regarding results of gonorrhea/chlamydia test. * Continue taking MIDODRINE 5 mg 3 times daily. * STOP taking CARVEDILOL 12.5 mg twice daily until you see your PCP. * STOP taking LASIX 40 mg daily until you see your PCP. * Continue taking medications as prescribed below. * Return to Emergency Room if symptoms persist, worsen, or new symptoms develop. * Follow up at [facility], [address] [place] [address]. Call [phone] for appointment Admission diagnoses: #Bilateral pulmonary nodules #Pulmonary artery hypertension #Distributive shock - likely septic shock #Severe UTI #HFpEF #Mild aortic stenosis #Diarrhea with black tarry stool #GI bleed rule out #Arteriovenous malformations #ESRD on dialysis MWF #Cirrhosis #Splenomegaly #Pancytopenia #Splenic sequestration #History of hypothyroidism #History of osteomyelitis of the left tibia and fibula #History of chronic venous ulcer #Severe hypoglycemia - resolved Case discussed with my attending Dr. Bucio, and senior resident, Dr. Lizet Escamilla MD PGY-1 Time Spent with Patient Time attestation: Total time spent providing and/or coordinating discharge services: Time spent: Greater than 30 minutes Exam Vital Signs Temp Pulse Resp BP Pulse Ox O2 Del Method O2 Flow Rate 97.6 F 82 18 116/59 L 95 Room Air 3 04/11/25 16:00 04/11/25 16:00 04/11/25 16:00 04/11/25 16:00 04/11/25 16:00 04/11/25 16:00 04/11/25 16:00 Narrative Exam General:AO X3. Conversing well. Nontoxic-appearing. HEENT: Normocephalic, atraumatic, mucous membranes moist. Heart: Regular rate and rhythm, no murmurs. Lungs: Good air entry bilaterally, no wheezing or crackles. Abdomen: Soft, nondistended, nontender, positive bowel sounds. ?No guarding or rebound tenderness. Neurologic: no gross neurological deficit, and patient able to move all 4 extremities. Extremities: 2+ bilateral lower extremity edema, chronic venous stasis changes, bilateral petechiae seen upper extremities, cool fingertips. Skin: Left lower extremity wound with granulation tissue some serosanguineous oozing Discharge Plan Plan Patient Disposition: Xfer Skilled Nsg Fac (SNF) Disposition Comment: [facility] Patient condition on transfer: Stable Care Plan Goals: * Follow-up with PCP within 1-2 weeks of discharge. * Continue to to see heme-onc, Dr. Epperson, recommended follow-up within 1 week of discharge. * Recommended repeat CBC within 3 to 7 days of discharge. * Follow-up with PCP regarding results of gonorrhea/chlamydia test. * Continue taking MIDODRINE 5 mg 3 times daily. * STOP taking CARVEDILOL 12.5 mg twice daily until you see your PCP. * STOP taking LASIX 40 mg daily until you see your PCP. * Continue taking medications as prescribed below. * Return to Emergency Room if symptoms persist, worsen, or new symptoms develop. * Follow up at [facility], [address] [place] [address]. Call [phone] for appointment Dressing Change Home Care: You have a wound that needs special care to heal.? Your body will make the new skin needed to close your wound, but you have to help.? Germs and old skin on the wound have to be removed.? This is done by changing the dressing on the wound as directed by your doctor. Wound:? Left lower leg Supplies/Equipment (keep all supplies in one place clean and dry) o?? Normal Saline (salt water) solution.? You can make you own by boiling 2 cups of water with ? teaspoon of salt for 10 minutes.? Keep in a glass jar in the refrigerator and make a new batch every day. o?? Clean/Irrigate wound with ?normal saline or wound cleanser o?? Medication for wound: normal saline moistened gauze o?? Primary dressing ? o?? Secondary dressing: dry gauze and gauze roll o?? Tape o?? Gloves o?? Q-tips o?? Small trash bag o?? Other supplies Follow these instructions: 1.??? Wash your hands with soap and water. 2.??? Gather all your supplies and place on a clean towel or paper towel. 3.??? Put on gloves.- 4.??? Remove all of the old dressing (including gauze packing if any) and put in the trash bag. 5.??? Take off the gloves and put in trash bag. 6.??? If not using gloves wash your hands again or put on new gloves. 7.??? Irrigate wound with Normal saline. ?Place gauze in trash bag. 8. Left lower leg: impregnate silvadene cream into adaptic gauze and cover wound. Layer with abd pad gauze. Secure with gauze roll than repeat with susi wrap If active bleeding occurs, apply tight dressing and return to MD or ER. ? Notify primary doctor or return to Emergency Room if any of the following: ? Fever above 100.6? F. ? Increased pain ? Increase swelling ? Red streaks around your wound ? Drainage becomes foul smelling or changes color ? The wound is larger or deeper ? The wound looks dried out or dark ? Bleeding that does not stop with holding pressure Prescriptions/Referrals Prescriptions/Med Rec: New midodrine 5 mg Tablet 5 mg PO TID Qty: 90 0RF Continued diphenhydramine HCl [Benadryl] 25 mg Capsule 25 mg PO TID PRN (Reason: Itching) Mere-[facility] Rx 1-60-300 mg-mg-mcg tablet 1 tab PO QDAY Patient Comments: TAKE 1 TABLET BY MOUTH DAILY Velphoro 500 mg tablet,chewable 500 mg PO QID Patient Comments: CHEW AND SWALLOW 1 TABLET BY MOUTH FOUR TIMES DAILY WITH FOOD levothyroxine 112 mcg tablet 112 mcg PO ACBR Held furosemide 40 mg Tablet 40 mg PO QDAY Hold Instructions: Resume on 04/11/25. Hold until you see your PCP carvedilol 12.5 mg Tablet 12.5 mg PO BID Hold Instructions: Resume on 04/11/25. Hold until you see your PCP Rx Instructions: must administer with a meal/food Referrals: Dariel Epperson MD [Physician] - Shad Cotton MD [Primary Care Provider] - Patient/Caregiver Discharge Instructions Education Materials: Thrombocytopenia, Nutrition for Wound Healing, Anemia and Kidney Disease, Kidney Disease Anemia Iron, Wound Care Dc, ED Venous Leg Ulcer Print Language: Estonian Stand Alone Forms: Bridget Award Info., Patient Portal Info Letter Discharge Order Discharge Orders: Discharge (Routine); Ordered 04/11/25 Ordered By: Sherine Hinds Quality Discharge Quality Measures VTE prophylaxis Attestestation MD Attestation I have discussed and was present for the essential components of the discharge history, physical examination, diagnosis, and discharge treatment plan with the resident. I agree with the patient's discharge care as documented by the resident and amended herein by me. Trip Bucio DO. The patient understood all discharge instructions, all questions were answered satisfactorily. The patient was instructed to return to the Emergency Department is symptoms worsened or persisted. Patient was stable and afebrile prior to discharge to [facility] Although this document has been carefully reviewed, there may still be some stephan netic and other typographical errors. These errors are purely grammatical due to imperfections in the software program and should not be construed in any way to compromise the substance of the patient's medical care during this visit.
--- NOTE | 2025-04-11 18:45 | PC.NURSE ---
Report given to Shanta WEST from [facility]; all instructions provided via phone. [facility] Transport services scheduled for transport @[id number]
--- NOTE | 2025-04-11 19:00 | PC.NURSE ---
Central line removal at this time, as recommended by Charge Nurse Niyah RN; scheduled transport @[id number]
--- NOTE | 2025-04-11 19:57 | PC.LAC ---
Patient discharged via wheelchair, no bleeding noted to left groin status post central line removal.
--- NOTE | 2025-04-11 22:50 | PD.IMPROG ---
Documentation for date of: 04/11/25 Subjective Subjective Interval history: Late entry for the note Case discussed with internal medicine team hemoglobin 7.8 Patient status post APC laser of the multiple angiodysplasias in the gastric body Exam Vital Signs Temp Pulse Resp BP Pulse Ox O2 Del Method O2 Flow Rate 97.6 F 82 18 116/59 L 95 Room Air 3 04/11/25 16:00 04/11/25 16:00 04/11/25 16:00 04/11/25 16:00 04/11/25 16:00 04/11/25 16:00 04/11/25 16:00 Objective Labs 04/11/25 11:41 04/11/25 11:41 Labs: Laboratory Results - last 24 hr 04/11/25 11:41 WBC 3.9 RBC 2.63 L Hgb 7.6 L Hct 22.2 L MCV 84 MCH 28.9 MCHC 34.2 RDW Std Deviation 47.2 H Plt Count 51 L D Neut % (Auto) 67 Lymph % (Auto) 16 Beckham % (Auto) 10 Eos % (Auto) 5 Baso % (Auto) 0 Neut # (Auto) 2.6 Lymph # (Auto) 0.6 L Beckham # (Auto) 0.4 Eos # (Auto) 0.2 Baso # (Auto) 0.0 Immature Gran # (Auto) 0.06 H Absolute Nucleated RBC 0.00 Immature Gran % 2 H Nucleated RBC % 0 Sodium 140 Potassium 3.6 Chloride 102 Carbon Dioxide 29.2 Anion Gap 9 BUN 37 H Creatinine 5.2 H* D Estim Creat Clear Calc 22.5 L eGFR 12 L* BUN/Creatinine Ratio 7 L Glucose 100 Calculated Osmolality 288 Calcium 9.2 Corrected Calcium 9.9 Total Bilirubin 0.5 AST 22 ALT 19 Alkaline Phosphatase 104 Total Protein 6.0 Albumin 3.1 L Globulin 2.9 Albumin/Globulin Ratio 1.1 L Misc Test Result Platelets confirmed Impressions Impression: Multiple angiodysplasia/AVMs in the body of the stomach status post APC laser Okay to discharge patient to be followed by the PCP Avoid NSAIDs Assessment & Plan Time Spent With Patient Time: Total time spent is greater than 50% in coordination of care (as documented) at patient's floor/unit and/or counseling patient:
[2025-04-17 06:45] LABS: ANA Screen, IFA POSITIVE (NEGATIVE); ANA Titer 1:160 titer; ANA Titer 1:320 titer; Actin Antibody (IgG)* <20 U; Alpha-1-Antitrypsin* 193 mg/dL (83-199); Ceruloplasmin* 22 mg/dL (14-30); Copper* 101 mcg/dL (70-175); Mitochondrial Ab NEGATIVE (NEGATIVE)
== END 2025-04-11 19:48 | disposition skilled nursing facility (03) | DRG 871 ==
LOC: SERX 16:35 → SERHOLD 17:58 → S2SX 20:48 → S2NX 04-06 17:25 → S3NX 04-08 01:10 → S2NX 04-10 05:41
PROVIDERS: Physician Assistant Medical; Specialist; Student in an Organized Health Care Education/Training Program; Admitting Provider Internal Medicine; Emergency Provider Emergency Medicine; PCP Internal Medicine; Visit Provider Student in an Organized Health Care Education/Training Program
PROC: (CPT 43239; principal; 2025-04-07 17:00)
PROC: 0W3P8ZZ Control Bleeding in Gastrointestinal Tract, Via Natural or Artificial Opening Endoscopic (ICD-10-PCS; CPT 43239; principal; 2025-04-08 16:15)
DX: A41.9 Sepsis, unspecified organism (principal); K26.4 Chronic or unspecified duodenal ulcer with hemorrhage; K31.811 Angiodysplasia of stomach and duodenum with bleeding; N18.6 End stage renal disease; R57.1 Hypovolemic shock; R65.21 Severe sepsis with septic shock; K55.21 Angiodysplasia of colon with hemorrhage; K29.81 Duodenitis with bleeding; I50.32 Chronic diastolic (congestive) heart failure; L97.929 Non-pressure chronic ulcer of unspecified part of left lower leg with unspecified severity; N39.0 Urinary tract infection, site not specified; L03.115 Cellulitis of right lower limb; L03.116 Cellulitis of left lower limb; M86.9 Osteomyelitis, unspecified; D61.818 Other pancytopenia; D62 Acute posthemorrhagic anemia; E87.0 Hyperosmolality and hypernatremia; E87.20 Acidosis, unspecified; Q27.30 Arteriovenous malformation, site unspecified; Z99.2 Dependence on renal dialysis; D63.1 Anemia in chronic kidney disease; E03.9 Hypothyroidism, unspecified; Z91.199 Patient's noncompliance with other medical treatment and regimen due to unspecified reason; R19.5 Other fecal abnormalities; R19.7 Diarrhea, unspecified; E16.2 Hypoglycemia, unspecified; E83.42 Hypomagnesemia; E87.6 Hypokalemia; I27.21 Secondary pulmonary arterial hypertension; I87.2 Venous insufficiency (chronic) (peripheral); I87.8 Other specified disorders of veins; K31.89 Other diseases of stomach and duodenum; K74.60 Unspecified cirrhosis of liver; E66.9 Obesity, unspecified; Z68.37 Body mass index [BMI] 37.0-37.9, adult; K80.20 Calculus of gallbladder without cholecystitis without obstruction; W06.XXXA Fall from bed, initial encounter; Z79.890 Hormone replacement therapy; Z79.899 Other long term (current) drug therapy; L30.9 Dermatitis, unspecified
CPT/HCPCS: 36415; 71045; 71250; 73700; 74018; 74176; 77012; 80053; 80069; 80074; 80202; 81001; 82103; 82105; 82390; 82525; 82947; 83540; 83550; 83605; 83615; 83690; 83735; 83880; 84100; 84484; 85014; 85018; 85025; 85046; 85049; 85610; 85652; 85730; 86015; 86038; 86039; 86140; 86255; 86850; 86900; 86901; 86902; 86921; 86922; 86965; 87015; 87040; 87045; 87046; 87081; 87086; 87205; 87493; 87899; 93005; 96365; 96366; 96375; 97162; 99152; J0696; J1200; J1611; J1720; J2250; J2405; J2470; J2543; J3010; J3373; J3475; J3490; J7030; J7999; P9016; P9035; P9047; Q5105; Q5106; A9270

== ENCOUNTER 2025-04-18 12:30 | Emergency (ER) | payer MEDICARE, MEDICAID, SELFPAY ==
[2025-04-18] VITALS (15 sets, daily range): BP systolic 87–124; BP diastolic 53–76; PULSE 56–76; RESP 12–18; TEMP 36.4–37; O2SAT 93–100; BMI 36.8
[2025-04-18 13:24] LABS: Basophils # (Auto) 0.0 Thou/mm3 (0.0-0.2); Basophils % (Auto) 1 % (0-2.5); Eosinophils # (Auto) 0.3 Thou/mm3 (0.0-0.5); Eosinophils % (Auto) 7 % (0-10); Hematocrit 23.0 % (41.0-53.0); Immature Granulocytes Auto 0.01 Thou/mm3 (0.00-0.00); Lymphocytes # (Auto) 1.0 Thou/mm3 (1.0-4.8); Lymphocytes % (Auto) 23 % (10-50); Mean Corpuscular HGB Conc 32.6 g/dl (31.0-37.0); Mean Corpuscular Hemoglobin 29.8 pg (25.0-35.0); Mean Corpuscular Volume 91 fL (80-100); Monocytes # (Auto) 0.6 Thou/mm3 (0.0-0.8); Monocytes % (Auto) 13 % (0-12); Neutrophils # (Auto) 2.4 Thou/mm3 (1.8-7.7); Neutrophils % (Auto) 57 % (37-80); Nucleated Red Blood Cell # 0.00 Thou/mm3 (0.00-0.00); Nucleated Red Blood Cell % 0 /100 WBC (0); RDW Standard Deviation 50.3 fL (35.1-43.9); Red Blood Count 2.52 Miln/mm3 (4.50-5.90); White Blood Count 4.3 Thou/mm3 (3.8-10.6)
[2025-04-18 13:41] LABS: Alanine Aminotransferase 17 U/L (10-49); Albumin, Serum 3.5 gm/dL (3.5-5.0); Albumin/Globulin Ratio 0.9 (1.2-2.2); Alkaline Phosphatase 117 U/L (46-116); Anion Gap 9 (7-16); Aspartate Amino Transferase 31 U/L (0-34); BUN/Creatinine Ratio 5 Ratio (12-20); Bilirubin,Total 0.8 mg/dL (0.3-1.2); Blood Urea Nitrogen 23 mg/dL (9-23); Calcium 8.4 mg/dL (8.3-10.6); Calcium (Corrected) 8.8 mg/dL (8.5-10.1); Carbon Dioxide 34.8 mMol/L (20.0-31.0); Chloride 96 mMol/L (98-107); Creatinine (Component) 4.6 mg/dL (0.6-1.3); Estimated Creatinine Clearance 25.1 mL/min (>60); Globulin 3.9 gm/dL (2.3-3.5); Glucose 86 mg/dL (74-106); Osmolality,Calculated 282 (275-295); Potassium 3.6 mMol/L (3.4-5.1); Sodium 140 mMol/L (136-145); Total Protein 7.4 gm/dL (5.7-8.2); eGFR 14 See Note
--- NOTE | 2025-04-18 13:54 | PC.NURSE ---
pt came to the ER via ems with c/O low blood pressure, generalized weakness and stating that he needs a blood transfusion. new orders received. pt placed on bedpan per his request and urinal provided to obtain urine sample call light within reach bed low locked
[2025-04-18 14:06] LABS: Hemoglobin 7.5 g/dL (13.5-16.0); Platelet Count 56 Thou/mm3 (140-440)
[2025-04-18 14:17] LABS: Slide Review Platelets confirmed
--- NOTE | 2025-04-18 16:00 | PD.EDWEAK ---
ED Weakness RME/HPI General Chief complaint: General Adult/Misc Complain Stated complaint: LOW BLOOD PRESSURE Time Seen by Provider: 04/18/25 12:52 Arrival date/time: 04/18/25 12:30 RME / HPI RME / HPI Narrative: DR. STEVENS MAIN ED EVALUATION: 59-year-old male with past medical history of end-stage renal disease on hemodialysis, hypothyroidism, HFpEF, chronic pancytopenia with recurrent transfusions, cirrhosis with splenomegaly, chronic venous leg ulcers, and history of osteomyelitis presents to the Emergency Department with complaints of light-headedness and generalized weakness. Symptoms began today. On arrival, patient was found to have low blood pressure. No reported chest pain, shortness of breath, or fever at this time. Related Data Home Medications ?Medication ?Instructions ?Recorded ?Confirmed diphenhydramine HCl 25 mg capsule 25 mg PO TID PRN Itching 08/20/22 04/05/25 (Benadryl) vitamin B comp no.3-folic acid 1 1 tab PO QDAY 08/20/22 04/05/25 mg-vit C 60 mg-biotin 300 mcg tablet ([facility] Rx) sucroferric oxyhydroxide 500 mg 500 mg PO QID 10/03/22 04/05/25 chewable tablet (Velphoro) carvedilol 12.5 mg tablet 12.5 mg PO BID 08/04/23 04/05/25 Held on 04/11/25. Instructions: Resume on 04/11/25. Hold until you see your PCP furosemide 40 mg tablet 40 mg PO QDAY 08/04/23 04/05/25 Held on 04/11/25. Instructions: Resume on 04/11/25. Hold until you see your PCP levothyroxine 112 mcg tablet 112 mcg PO ACBR 02/10/25 04/05/25 Previous Rx's ?Medication ?Instructions ?Recorded midodrine 5 mg tablet 5 mg PO TID #90 tabs 04/11/25 Allergies Allergy/AdvReac Type Severity Reaction Status Date / Time adhesive tape Allergy Severe Rash Verified 04/18/25 12:35 vancomycin AdvReac Severe Rash Verified 04/18/25 12:35 Review of Systems Review of Systems Systems Reviewed: All systems reviewed, normal except as documented Past Medical History Social History SMOKING STATUS: Never smoker SUBSTANCE USE: does not use ALCOHOL: Never Past Medical History Comments PMH COMMENT: Past medical history: PMH: as above PSHx: AV fistula of L upper extremity Allergies: adhesive tape (rash) Social History: denies tobacco, alcohol and illicit drug use Family History:Mom had emphysema, brother had kidney failure ED Exam Narrative Physical exam: GENERAL APPEARANCE: alert and oriented x 4, well-developed, well-nourished, no acute distress, looks pale VITALS: All vitals were reviewed and the pulse ox is 100% on 3 L/min via a nasal cannula. HEENT: Normocephalic, atraumatic; pupils equal, round, reactive to light; EOMI; mucous membranes pink, moist; oropharynx clear NECK: Supple LUNGS: CTABL; no wheezes, no rales, no rhonchi HEART: Regular rate, regular rhythm; normal S1, S2; no murmurs ABDOMEN: non distended; normal BS; soft, no tenderness, no guarding, no rebound; no masses, no organomegaly, no hernia BACK: no CVA tenderness EXTREMITIES: atraumatic; no edema NEUROLOGIC: awake; alert and oriented x4; cranial nerves II-XII grossly intact; no focal sensory or motor deficits PSYCHIATRIC: appropriate mood and affect SKIN: warm, dry, pallor; no rashes Course Quality Measures none Orders Category Date Time Status IV [Insert IV] NOW Care 04/18/25 12:58 Active Transfuse,blood/blood products NOW Care 04/18/25 15:10 Active CBC Stat Lab 04/18/25 13:00 Completed CMP [Comprehensive Metabolic Panel] Stat Lab 04/18/25 13:00 Completed Red Blood Cells Stat Lab 04/18/25 15:43 Results Type and Screen Stat Lab 04/18/25 15:43 Results UA, C/S IF [Urinalysis, C/S if Indicated] Stat Lab 04/18/25 16:38 Completed Vital Signs Vital signs: Vital Signs Temperature 97.5 F 04/18/25 12:36 Pulse Rate 75 04/18/25 12:36 Respiratory Rate 18 04/18/25 12:36 Blood Pressure 87/55 L 04/18/25 12:36 Pulse Oximetry (%) 95 04/18/25 12:36 Oxygen Delivery Method Room Air 04/18/25 12:36 Weakness MDM Narrative MDM Narrative:: I, Aleena Canales, hill scribing for and in the presence of Dr. Stevens. Patient data External records reviewed:: [facility] previous records Clinical information provided by:: patient Social determinants that could affect healthcare access:: none Patient has the following chronic illnesses:: End-stage renal disease on hemodialysis, hypothyroidism, HFpEF, chronic pancytopenia with recurrent transfusions, cirrhosis with splenomegaly, chronic venous leg ulcers, and history of osteomyelitis. How is presenting disease/condition affected by chronic disease/condition?: exacerbated by Evaluation data The following diagnostics were reviewed and interpreted by me:: lab results Lab and/or radiology exams considered but not ordered:: none Interpretation Summary: Hgb 7.5 Medications / Prescriptions Medications or Prescriptions considered but not ordered:: none Medication administrations:: see above if any Consultations Consultation(s) initiated? (list below): No Diagnosis Weakness Differential Diagnosis: anemia, sepsis, dehydration and other (anemia due to chronic pancytopenia and volume depletion or sepsis-related hypotension) Most likely diagnosis given after review of the tests above:: Hypotension Symptomatic anemia Transfusion of blood during current hospitalization Admission Indicated Admission indicated?: not indicated Admission Request Was there a request for admission?: No Disposition Plan Disposition Plan: Discharge (SNF) Discharge Attestation Discharge Attestation: The patient and all family members were given an opportunity to ask questions and understood the discharge instructions. Discharge instructions specifically effects, indications for sooner follow up or return to the emergency department, and the expected course of current diagnosis. Patient condition: Stable Discharge Plan Plan Patient Disposition: Xfer Skilled Nsg Fac (SNF) Prescriptions/Referrals Prescriptions/Med Rec: No Action furosemide 40 mg Tablet 40 mg PO QDAY carvedilol 12.5 mg Tablet 12.5 mg PO BID Rx Instructions: must administer with a meal/food midodrine 5 mg Tablet 5 mg PO TID Qty: 90 0RF diphenhydramine HCl [Benadryl] 25 mg Capsule 25 mg PO TID PRN (Reason: Itching) [facility] Rx 1-60-300 mg-mg-mcg tablet 1 tab PO QDAY Patient Comments: TAKE 1 TABLET BY MOUTH DAILY Velphoro 500 mg tablet,chewable 500 mg PO QID Patient Comments: CHEW AND SWALLOW 1 TABLET BY MOUTH FOUR TIMES DAILY WITH FOOD levothyroxine 112 mcg tablet 112 mcg PO ACBR Referrals: Shad Cotton MD [Primary Care Provider] - In 1 week Problem List Clinical Impression: Hypotension, Symptomatic anemia, Transfusion of blood during current hospitalization Patient/Caregiver Discharge Instructions Education Materials: Anemia, ED Low Blood Pressure, All Causes Print Language: Peruvian Stand Alone Forms: Bridget Award Info., Patient Portal Info Letter
--- NOTE | 2025-04-18 16:06 | PC.NURSE ---
consent for blood signed by provider and patient
--- NOTE | 2025-04-18 16:12 | PC.NURSE ---
pt told that urine sample is needed patient said no to in n out catheter. pt states he will try urinating on his own
[2025-04-18 16:47] LABS: Collection Type, Urine Clean Catch
[2025-04-18 17:00] LABS: Bilirubin,Urine Negative (Negative); Blood,Urine Negative (Negative); Clarity,Urine Clear (Clear/Hazy); Color,Urine Yellow (Lt Yel-Yel); Culture Indicated,Urine Not Indicated; Glucose, Urine Trace (Negative); Ketones,Urine Negative (Negative); Leukocyte Esterase,Urine Positive (Negative); Nitrite,Urine Negative (Negative); PH,Urine 8.0 (5.0-7.0); Protein,Urine 2+ (Neg - Trace); RBC,Urine 2 /hpf (0-3); Specific Gravity,Urine 1.009 (1.001-1.035); Squamous Epithelial Cell,Urine < 1 /hpf (0-5); Urobilinogen,Urine Negative mg/dL (0.0-1.0); WBC,Urine 3 /hpf (0-5)
== END 2025-04-18 23:37 | disposition skilled nursing facility (03) ==
PROVIDERS: Emergency Provider Emergency Medicine; PCP Internal Medicine
DX: D64.9 Anemia, unspecified (principal); I95.9 Hypotension, unspecified; N18.6 End stage renal disease; Z99.2 Dependence on renal dialysis
CPT/HCPCS: 36415; 36430; 80053; 81001; 85025; 86850; 86900; 86901; 86902; 86921; 86922; 99284; P9016

== ENCOUNTER 2025-05-08 17:44 | Emergency (ER) | payer MEDICARE, MEDICAID, SELFPAY ==
[2025-05-08 17:45] VITALS: BMI 47.5
[2025-05-08 18:09] VITALS: BP 105/58; PULSE 77; RESP 18; TEMP 36.7; O2SAT 97
--- NOTE | 2025-05-08 18:30 | PD.EDRME ---
Rapid Medical Screening Exam RME Arrival date/time: 05/08/25 17:44 This is a case of 59-year-old male with past medical history of end-stage renal disease on hemodialysis, hypothyroidism, HFpEF, chronic pancytopenia with recurrent transfusions, cirrhosis with splenomegaly, chronic venous leg ulcers, and history of osteomyelitis presents to the Emergency Department with complaints of light-headedness and generalized weakness Patient states he need blood transfusion Chief Complaint: General Adult/Misc Complain Time Seen by Provider: 05/08/25 18:18 Vital signs: Vital Signs Temperature 98.1 F 05/08/25 18:09 Pulse Rate 77 05/08/25 18:09 Respiratory Rate 18 05/08/25 18:09 Blood Pressure 105/58 L 05/08/25 18:09 Pulse Oximetry (%) 97 05/08/25 18:09 Oxygen Delivery Method Room Air 05/08/25 18:09
[2025-05-08 18:55] LABS: Basophils # (Auto) 0.0 Thou/mm3 (0.0-0.2); Basophils % (Auto) 1 % (0-2.5); Eosinophils # (Auto) 0.1 Thou/mm3 (0.0-0.5); Eosinophils % (Auto) 3 % (0-10); Immature Granulocytes Auto 0.01 Thou/mm3 (0.00-0.00); Lymphocytes # (Auto) 0.9 Thou/mm3 (1.0-4.8); Lymphocytes % (Auto) 19 % (10-50); Mean Corpuscular HGB Conc 34.0 g/dl (31.0-37.0); Mean Corpuscular Hemoglobin 32.8 pg (25.0-35.0); Mean Corpuscular Volume 96 fL (80-100); Monocytes # (Auto) 0.4 Thou/mm3 (0.0-0.8); Monocytes % (Auto) 8 % (0-12); Neutrophils # (Auto) 3.5 Thou/mm3 (1.8-7.7); Neutrophils % (Auto) 69 % (37-80); Nucleated Red Blood Cell # 0.00 Thou/mm3 (0.00-0.00); Nucleated Red Blood Cell % 0 /100 WBC (0); RDW Standard Deviation 70.5 fL (35.1-43.9); Red Blood Count 1.95 Miln/mm3 (4.50-5.90); White Blood Count 5.0 Thou/mm3 (3.8-10.6)
[2025-05-08 19:08] LABS: Hematocrit 18.8 % (41.0-53.0); Hemoglobin 6.4 g/dL (13.5-16.0); Platelet Count 74 Thou/mm3 (140-440)
[2025-05-08 19:16] LABS: Alanine Aminotransferase < 7 U/L (10-49); Albumin, Serum 3.5 gm/dL (3.5-5.0); Albumin/Globulin Ratio 0.8 (1.2-2.2); Alkaline Phosphatase 86 U/L (46-116); Anion Gap 12 (7-16); Aspartate Amino Transferase 16 U/L (0-34); BUN/Creatinine Ratio 5 Ratio (12-20); Bilirubin,Total 0.4 mg/dL (0.3-1.2); Blood Urea Nitrogen 50 mg/dL (9-23); Calcium 9.5 mg/dL (8.3-10.6); Calcium (Corrected) 9.9 mg/dL (8.5-10.1); Carbon Dioxide 29.0 mMol/L (20.0-31.0); Chloride 94 mMol/L (98-107); Creatinine (Component) 9.9 mg/dL (0.6-1.3); Estimated Creatinine Clearance 13.4 mL/min (>60); Globulin 4.2 gm/dL (2.3-3.5); Glucose 95 mg/dL (74-106); Osmolality,Calculated 283 (275-295); Potassium 5.8 mMol/L (3.4-5.1); Sodium 135 mMol/L (136-145); Total Protein 7.7 gm/dL (5.7-8.2); eGFR 6 See Note
[2025-05-08 20:14] VITALS: BP 125/58; PULSE 68; RESP 17; TEMP 36.9; O2SAT 95
--- NOTE | 2025-05-08 20:29 | PD.EDRECHK ---
ED Recheck Abnl Lab Rx-RME/HPI General Chief Complaint: General Adult/Misc Complain Stated Complaint: ANEMIA; NEEDS BLOOD TRANSFUSION Time Seen by Provider: 05/08/25 18:18 Arrival date/time: 05/08/25 17:44 RME / HPI RME / HPI narrative: 05/08/25 17:44 This is a case of 59-year-old male with past medical history of end-stage renal disease on hemodialysis, hypothyroidism, HFpEF, chronic pancytopenia with recurrent transfusions, cirrhosis with splenomegaly, chronic venous leg ulcers, and history of osteomyelitis presents to the Emergency Department with complaints of light-headedness and generalized weakness Patient states he need blood transfusion ------- See MDM for HPI documentation. Related Data Home Medications ?Medication ?Instructions ?Recorded ?Confirmed diphenhydramine HCl 25 mg capsule 25 mg PO TID PRN Itching 08/20/22 04/05/25 (Benadryl) vitamin B comp no.3-folic acid 1 1 tab PO QDAY 08/20/22 04/05/25 mg-vit C 60 mg-biotin 300 mcg tablet ([facility] Rx) sucroferric oxyhydroxide 500 mg 500 mg PO QID 10/03/22 04/05/25 chewable tablet (Velphoro) carvedilol 12.5 mg tablet 12.5 mg PO BID 08/04/23 04/05/25 Held on 04/11/25. Instructions: Resume on 04/11/25. Hold until you see your PCP furosemide 40 mg tablet 40 mg PO QDAY 08/04/23 04/05/25 Held on 04/11/25. Instructions: Resume on 04/11/25. Hold until you see your PCP levothyroxine 112 mcg tablet 112 mcg PO ACBR 02/10/25 04/05/25 Previous Rx's ?Medication ?Instructions ?Recorded midodrine 5 mg tablet 5 mg PO TID #90 tabs 04/11/25 Allergies Allergy/AdvReac Type Severity Reaction Status Date / Time adhesive tape Allergy Severe Rash Verified 05/08/25 17:48 vancomycin AdvReac Severe Rash Verified 05/08/25 17:48 Review of Systems Review of Systems Systems Reviewed: All systems reviewed, normal except as documented Past Medical History Past Medical History NEUROLOGIC: Positive Neurological Disorders and Peripheral Neuropathy; Negative Cerebrovascular Accident, Transient Ischemic Attacks (TIA), Dementia, Alzheimer's Disease, Parkinson's Disease, Brain Tumor, Meningitis, Seizures, Epilepsy, Multiple Sclerosis, Cerebral Palsy, Amyotrophic Lateral Sclerosis (ALS/Carmela Gehrig's), Guillain-V[place] Syndrome, Spina Bifida, Paralysis, Fermin's Palsy, Subdural Hematoma, Migraine, Head Trauma, Spinal Cord Injury or Traumatic Brain Injury CARDIAC: Positive Cardiac Arrhythmia; Negative Cardiac Disorders, Myocardial Infarction, Atrial Fibrillation, Angina, Heart Murmur, Coronary Artery Disease, Atherosclerotic Heart Disease, Peripheral Vascular Disease, Hypercholesterolemia, Aneurysm, Congestive Heart Failure, Congenital Heart Disease, Valvular Heart Disease, Rheumatic Fever, Cardiomyopathy, Pericarditis, Cellulitis, Deep Vein Thrombosis, Hypertension, Hypotension or Varicose Veins RESPIRATORY: Positive Sleep Apnea; Negative Chronic Obstructive Pulmonary Disease (COPD), Asthma, Bronchitis, Emphysema, Pneumonia, Pulmonary Fibrosis, Cystic Fibrosis, Tuberculosis, Pulmonary Embolism or Pulmonary Edema GASTROINTESTINAL: Positive Gastrointestinal Disorders, Gastrointestinal Bleed, Ulcer and Obesity; Negative Hepatitis, Cirrhosis, Pancreatitis, Celiac Disease, Gall Bladder Disease, Esophageal Varices, Kc's Esophagus, Colitis, Ulcerative Colitis, Diverticulitis, Diverticulosis, Colorectal Cancer, Irritable Bowel, Crohn's Disease, Obstructive Bowel, Hiatal Hernia, Hemorrhoids or Gastroesophageal Reflux Disease GENITOURINARY: Positive Genitourinary Disorders, Renal Disease and Dialysis; Negative Kidney Stones, Polycystic Kidney Disease, Neurogenic Bladder, Inguinal Hernia, Prostate Cancer or Benign Prostatic Hyperplasia REPRODUCTIVE: Negative Breast Cancer, Genital Herpes, Gonorrhea, Syphilis or Testicular Cancer MUSCULOSKELETAL: Negative Musculoskeletal Disorders, Muscular Dystrophy, Myasthenia Gravis, Marfan's Syndrome, Bone Cancer, Arthritis, Rheumatoid Arthritis, Osteoporosis, Degenerative Disk Disease, Gout, Scoliosis, Carpal Tunnel Syndrome, Fibromyalgia, Fractures, Degenerative Joint Disease, Osteomyelitis or Poliovirus ENT: Negative Cataracts, Glaucoma, Blind, Retinal Detachment, Macular Degeneration, Ear Infection, Deafness, Head Trauma or Eye Prosthesis ENDOCRINE: Positive Endocrine Disorders, Hypoglycemia and Hypothyroidism; Negative Diabetes Mellitus Type 1, Diabetes Mellitus Type 2, Óscar's Syndrome, Antwon's Disease, Hyperthyroidism, Parathyroid Disease, Pituitary Disease, Systemic Lupus Erythematosus, Syndrome of Inappropriate Antidiuretic Hormone (SIADH), Adrenal Disease or Graves' Disease HEMATOLOGIC: Positive Blood Disorders and Anemia; Negative Leukemia, Hemophilia, Thalassemia, Sickle Cell Disease or Clotting Problems PSYCHO/SOCIAL: Positive Depression and Anxiety; Negative Psychiatric Problems, Schizophrenia, Recreational Drug Use, Bipolar Disorder, Behavior Problems, Self-Mutilation, Attention Deficit Disorder, Attention Deficit Hyperactivity Disorder, Depression, Post Traumatic Stress Disorder or Eating Disorder OTHER HISTORY: Positive Blood Transfusions and Chicken Pox; Negative Hospitalization, Autoimmune Disease, Down Syndrome, Autism, Developmental Delay, Shingles, Falls, Blood Transfusion Reaction, Anesthesia Reactions, Organ Transplant, Chemotherapy, Radiation Therapy, Hyperbaric Therapy, MRSA, VRSA, Vancomycin-Resistant Enterococci, Human Immunodeficiency Virus (HIV), Measles, Mumps, Rubella (Pashto Measles), Pertussis, Clostridium Difficile, Cancer, Breast Cancer, Cervical Cancer, Colorectal Cancer, Lung Cancer, Ovarian Cancer, Prostate Cancer or Testicular Cancer Family History FAMILY HISTORY: Positive Family Psychiatric Problems and Family Respiratory Disorders; Negative Family Cardiac Disorders, Family Gastrointestinal Problems, Family Cancer, Family Surgery or Family Anesthesia Reaction Surgical History SURGICAL: Positive Vascular Surgery and Tonsillectomy; Negative Cardiac Surgery, Open Heart Surgery, Coronary Artery Bypass Graft, Valve Replacement, Coronary Stent, Cardiac Catheterization, Pacemaker, Angiogram, Auto Implanted Cardiovert Defib, Carotid Endarterectomy, Endocrine Surgery, Thyroidectomy, Ear Surgery, Tympanostomy Tube, Eye Surgery, Nose Surgery, Oral Surgery, Adenoidectomy, Cochlear Implant, Corneal Transplant, Throat Surgery, Abdominal Surgery, Tracheostomy, Gastric Bypass Surgery, Gastrostomy, Bowel Surgery, Nephrectomy, Transurethral Resection, Joint Replacement, Amputation, Open Reduction Internal Fixation, Arthroscopy, Neurologic Surgery, Brain Shunt, Vasectomy or Organ Transplant Social History SMOKING STATUS: Never smoker SECOND HAND EXPOSURE: No SUBSTANCE USE: does not use ED Exam Narrative Physical exam: See MDM for physical exam documentation. Course Quality Measures none Orders Category Date Time Status Transfuse,blood/blood products NOW Care 05/08/25 20:17 Completed CBC Stat Lab 05/08/25 18:38 Completed CMP [Comprehensive Metabolic Panel] Stat Lab 05/08/25 18:38 Completed Magnesium Stat Lab 05/08/25 18:38 Completed Path Review Blood Smear Stat Lab 05/08/25 18:38 Completed Type and Screen Stat Lab 05/08/25 18:38 Completed prbc [Red Blood Cells] Stat Lab 05/08/25 18:38 Completed Vital Signs Vital signs: Vital Signs Temperature 98.1 F 05/08/25 18:09 Pulse Rate 77 05/08/25 18:09 Respiratory Rate 18 05/08/25 18:09 Blood Pressure 105/58 L 08/18/25 18:09 Pulse Oximetry (%) 97 05/08/25 18:09 Oxygen Delivery Method Room Air 05/08/25 18:09 Recheck / Abnormal Lab / Rx MDM Narrative MDM Narrative:: This section includes all my notes and documentations, including HPI, PE, and ED course. Shaun Kilgore MD HPI: 59yo male with a history of ESRD on HD, chronic anemia requiring recurrent transfusions here for a blood trasnfusion. Patient has been feeling more fatigued over the last couple days and feels like this when he needs a blood transfusion. No vomiting or rectal bleeding. No other complaints reported. ROS: All negative except as documented in HPI. Physical Exam: General: Alert and oriented. No acute distress when remaining still. Eyes: Conjunctivae and lids clear. ENT: No nasal congestion. Neck: Supple. Heart: RRR. Lungs: No respiratory distress. Good air movement. No rhonchi, wheezing, rales. Abdomen: Soft and nontender. Normal bowel sounds. No distension. No rebound or guarding. Back: No CVA tenderness. Skin: Warm and dry. Neuro: Alert and oriented X 3. I reviewed all diagnostic test results. Blood tests remarkable for Hgb 6.4, Hct 18.8, Creatinine 9.9, K 5.8. At this point, diagnoses include severe anemia. Treatment here included 2 units pRBCs. Significant improvement noted. Based on my best medical judgment, made decision no further evaluation or treatment indicated at this time. Patient understands and agrees to the discharge instructions customized and printed, see below. Discharge Instructions from Dr. Kilgore printed for you: 1. Your severe anemia was treated with blood transfusion. Most likely from kidney disease. 2. Continue current care with your private doctors. 3. Seek immediate medical care with worsening or with any concerns. Shaun Kilgore MD Patient data External records reviewed:: [facility] previous records (Per chart review, patient was seen here on 04/18/25 for hypotension.) Clinical information provided by:: patient Social determinants that could affect healthcare access:: none Patient has the following chronic illnesses:: ESRD on hemodialysis, hypothyroidism, HFpEF, chronic pancytopenia with recurrent transfusions, cirrhosis with splenomegaly, chronic venous leg ulcers How is presenting disease/condition affected by chronic disease/condition?: caused by Evaluation data The following diagnostics were reviewed and interpreted by me:: lab results Lab and/or radiology exams considered but not ordered:: none Interpretation Summary: I reviewed all diagnostic test results. Blood tests remarkable for Hgb 6.4, Hct 18.8, Creatinine 9.9, K 5.8. Medications / Prescriptions Medications or Prescriptions considered but not ordered:: none Medication administrations:: 2 units pRBCs Consultations Consultation(s) initiated? (list below): No Diagnosis Recheck Differential Diagnosis: other (Severe anemia) Most likely diagnosis given after review of the tests above:: Severe anemia Admission Indicated Admission indicated?: not indicated Explain why admission is indicated or not indicated:: With significant improvement and no condition needing emergent intervention, there was no indication for admission. Admission Request Was there a request for admission?: No Disposition Plan Disposition Plan: Discharge Discharge Attestation Discharge Attestation: The patient and all family members were given an opportunity to ask questions and understood the discharge instructions. Discharge instructions specifically effects, indications for sooner follow up or return to the emergency department, and the expected course of current diagnosis. Patient condition: Stable Discharge Plan Plan Patient Disposition: HOME (Self Care) Prescriptions/Referrals Prescriptions/Med Rec: No Action furosemide 40 mg Tablet 40 mg PO QDAY carvedilol 12.5 mg Tablet 12.5 mg PO BID Rx Instructions: must administer with a meal/food midodrine 5 mg Tablet 5 mg PO TID Qty: 90 0RF diphenhydramine HCl [Benadryl] 25 mg Capsule 25 mg PO TID PRN (Reason: Itching) [facility] Rx 1-60-300 mg-mg-mcg tablet 1 tab PO QDAY Patient Comments: TAKE 1 TABLET BY MOUTH DAILY Velphoro 500 mg tablet,chewable 500 mg PO QID Patient Comments: CHEW AND SWALLOW 1 TABLET BY MOUTH FOUR TIMES DAILY WITH FOOD levothyroxine 112 mcg tablet 112 mcg PO ACBR Referrals: Shad Cotton MD [Primary Care Provider] - In 1 week Problem List Clinical Impression: Severe anemia Patient/Caregiver Discharge Instructions Discharge Activity: activity as tolerated Education Materials: ED Anemia Type Not Specified Additional Instructions: Discharge Instructions from Dr. Kilgore printed for you: 1. Your severe anemia was treated with blood transfusion. Most likely from kidney disease. 2. Continue current care with your private doctors. 3. Seek immediate medical care with worsening or with any concerns. Print Language: Greenlandic Stand Alone Forms: Bridget Award Info., Patient Portal Info Letter
[2025-05-08 20:52] LABS: Path Review Blood Smear Sent to Pathologist; Slide Review Platelets confirmed
[2025-05-08 21:25] LABS: Magnesium 1.9 mg/dL (1.6-2.6)
[2025-05-08 21:47] VITALS: BP 137/55; PULSE 73; RESP 18; TEMP 36.6; O2SAT 96
[2025-05-08 23:34] VITALS: BP 138/70; PULSE 68; RESP 15; TEMP 36.6; O2SAT 97
[2025-05-08 23:50] VITALS: BP 144/52; PULSE 70; RESP 17; TEMP 36.6; O2SAT 94
[2025-05-09] VITALS (8 sets, daily range): BP systolic 125–141; BP diastolic 53–85; PULSE 61–75; RESP 16–20; TEMP 36.4–37.2; O2SAT 95–100
== END 2025-05-09 05:15 | disposition home or self-care (01) ==
PROVIDERS: Nurse Practitioner Family; Emergency Provider Emergency Medicine; PCP Internal Medicine
DX: N18.6 End stage renal disease (principal); D63.1 Anemia in chronic kidney disease; I50.32 Chronic diastolic (congestive) heart failure; Z99.2 Dependence on renal dialysis; E03.9 Hypothyroidism, unspecified; K74.60 Unspecified cirrhosis of liver
CPT/HCPCS: 36415; 36430; 80053; 83735; 85014; 85018; 85025; 86850; 86900; 86901; 86902; 86921; 86922; 99283; P9016

== ENCOUNTER 2025-05-22 16:09 | Emergency (ER) | payer MEDICARE, MEDICAID, SELFPAY ==
[2025-05-22 16:10] VITALS: BMI 34.4
[2025-05-22 16:41] VITALS: BP 116/64; PULSE 71; RESP 20; TEMP 36.6; O2SAT 95
--- NOTE | 2025-05-22 16:51 | EDNOTE_ITS ---
ED Weakness RME/HPI General Chief complaint: General Adult/Misc Complain Stated complaint: NEED TRANSFUSION, CHRONIC ANEMIA Time Seen by Provider: 05/22/25 16:11 Arrival date/time: 05/22/25 16:09 This is a 59-year-old male that comes into the emergency room with complaints of anemia and he thinks he needs a blood transfusion. Patient states he recently was checked and his hemoglobin was 7. Patient states that he is feeling dizzy at times and his blood pressure has also been dropping. Patient reports feeling weak. Patient has a history of hypothyroidism end-stage renal failure on dialysis. Related Data Home Medications ?Medication ?Instructions ?Recorded ?Confirmed diphenhydramine HCl 25 mg capsule 25 mg PO TID PRN Itc adrian 08/20/22 04/05/25 (Benadryl) vitamin B comp no.3-folic acid 1 1 tab PO QDAY 2 04/05/25 mg-vit C 60 mg-biotin 300 mcg tablet ([facility]) sucroferric oxyhydroxide 500 mg 500 mg PO QID 10/03/22 04/05/25 chewable tablet (Velphoro) carvedilol 12.5 mg tablet 12.5 mg PO BID 08/04/2303/21 Held on 04/11/25. Instructions: Resume on 04/11/25. Hold until you see your PCP furosemide 40 mg tablet 40 mg PO QDAY 08/04/2304/05 Held on 04/11/25. Instructions: Resume on 04/11/25. Hold until you see your PCP levothyroxine 112 mcg tablet 112 mcg PO ACBR 02/10/25 04/05/25 Previous Rx's ?Medication ?Instructions ?Recorded midodrine 5 mg tablet 5 mg PO TID #90 tabs 5 Allergies Allergy/AdvReac Type Severity Reaction Status Date / Time adhesive tape Allergy Severe Rash Verified 05/22/25 16:11 vancomycin AdvReac Severe Rash Verified 05/22/25 16:11 Review of Systems Review of Systems Systems Reviewed: All systems reviewed, normal except as documented Past Medical History Past Medical History NEUROLOGIC: Positive Neurological Disorders and Peripheral Neuropathy CARDIAC: Positive Cardiac Arrhythmia RESPIRATORY: Positive Sleep Apnea GASTROINTESTINAL: Positive Gastrointestinal Disorders, Gastrointestinal Bleed, Ulcer and Obesity GENITOURINARY: Positive Genitourinary Disorders, Renal Disease and Dialysis ENDOCRINE: Positive Endocrine Disorders, Hypoglycemia and Hypothyroidism HEMATOLOGIC: Positive Blood Disorders and Anemia PSYCHO/SOCIAL: Positive Depression and Anxiety OTHER HISTORY: Positive Blood Transfusions and Chicken Pox Family History FAMILY HISTORY: Positive Family Psychiatric Problems and Family Respiratory Disorders Surgical History SURGICAL: Positive Vascular Surgery and Tonsillectomy Social History SMOKING STATUS: Never smoker SECOND HAND EXPOSURE: No SUBSTANCE USE: does not use ED Exam Narrative Physical exam: VITAL SIGNS: Reviewed. GENERAL APPEARANCE: Alert and interactive, follows commands, no acute distress, HEAD AND FACE: Non-traumatic. ENT: PERRL, conjuctiva pink and clear, eyelid no trauma, Mucous membrane moist. NECK: Supple, nontender, no nuchal rigidity. CHEST: No tenderness, no crepitus, no paradoxical movement, no retractions. LUNGS: Clear, well ventilated, symmetric, no rales, no wheezing, no rhonchi, no stridor, good breath sounds bilaterally. HEART: Regular rate, regular rhythm, no murmur, no gallops. ABDOMEN: Soft, nondistended, no guarding, nontender, no rebound, no masses, NEUROLOGICAL: Gross motor function intact sensory function intact, Appropriate for age. MUSCULOSKELETAL: low back nontender, full range of motion. EXTREMITIES: No redness no swelling no skin breakdown on bilateral foot and leg. Distal neurovascular status intact bilateral foot SKIN: Color pink, dry, no rash, no lacerations, no abrasions, no contusions. Course Quality Measures none Orders Category Date Time Status EKG (ED ONLY) *Do not use* NOW Care 05/22/25 16:52 Completed EKG (ED Only) Stat Exams 05/22/25 16:52 Draft XR chest 1V Stat Exams 05/22/25 16:53 Completed BNP [B-Type Natriuretic Peptide] Stat Lab 05/22/25 17:10 Completed CBC Stat Lab 05/22/25 17:10 Completed Comprehensive Metabolic Panel Stat Lab 05/22/25 17:10 Completed PT [Prothrombin Time with INR] Stat Lab 05/22/25 17:10 Completed Troponin I Stat Lab 05/22/25 17:10 Completed Type and Screen Stat Lab 05/22/25 17:10 Completed Vital Signs Vital signs: Vital Signs Temperature 97.8 F 05/22/25 16:41 Pulse Rate 71 05/22/25 16:41 Respiratory Rate 20 05/22/25 16:41 Blood Pressure 116/64 05/22/25 16:41 Pulse Oximetry (%) 95 05/22/25 16:41 Oxygen Delivery Method Room Air 05/22/25 16:41 PROCEDURES: EKG Interpretation #1: Date of EK05/22/25 Time of EK:54 Rate: 71 Interpretation: Interpreted by me (sinus rhythm first degree av block ) EKG Impression: Normal sinus rhythm, No ectopy and Normal intervals Weakness MDM Narrative MDM Narrative:: Labs are reviewed patient's hemoglobin 7.6 hematocrit 22.2 platelet count is 82. PT 12.5 INR 1.2 BMP shows a chloride of 93 bicarb of 31.8 creatinine 3.7 BUN of 13 troponin is less than 0.20 BNP is 369. I spoke to patient at length to followup with primary provider in 1-2 days. Pt feeling better. Come back to ED if symptoms change or worsen. chest x ray shows: Findings: Mild CHF. Mild enlargement cardiac contour. Prominent vascular congestion including central vascular engorgement Perihilar basilar edema Mild osteopenia. Impression: Mild CHF Patient data External records reviewed:: [facility] previous records Clinical information provided by:: patient Social determinants that could affect healthcare access:: none Patient has the following chronic illnesses:: see hpi How is presenting disease/condition affected by chronic disease/condition?: exacerbated by Evaluation data The following diagnostics were reviewed and interpreted by me:: lab results Lab and/or radiology exams considered but not ordered:: none Interpretation Summary: see note Medications / Prescriptions Medications or Prescriptions considered but not ordered:: none Medication administrations:: none Consultations Consultation(s) initiated? (list below): No Diagnosis Weakness Differential Diagnosis: anemia, dehydration and other (gi bleed) Most likely diagnosis given after review of the tests above:: chronic anemia Admission Indicated Admission indicated?: not indicated Admission Request Was there a request for admission?: No Disposition Plan Disposition Plan: Discharge Discharge Attestation Discharge Attestation: The patient and all family members were given an opportunity to ask questions and understood the discharge instructions. Discharge instructions specifically effects, indications for sooner follow up or return to the emergency department, and the expected course of current diagnosis. Patient condition: Stable Discharge Plan Plan Patient Disposition: HOME (Self Care) Patient condition on transfer: Stable Prescriptions/Referrals Prescriptions/Med Rec: No Action furosemide 40 mg Tablet 40 mg PO QDAY carvedilol 12.5 mg Tablet 12.5 mg PO BID Rx Instructions: must administer with a meal/food midodrine 5 mg Tablet 5 mg PO TID Qty: 90 0RF diphenhydramine HCl [Benadryl] 25 mg Capsule 25 mg PO TID PRN (Reason: Itching) [facility] Rx 1-60-300 mg-mg-mcg tablet 1 tab PO QDAY Patient Comments: TAKE 1 TABLET BY MOUTH DAILY Velphoro 500 mg tablet,chewable 500 mg PO QID Patient Comments: CHEW AND SWALLOW 1 TABLET BY MOUTH FOUR TIMES DAILY WITH FOOD levothyroxine 112 mcg tablet 112 mcg PO ACBR Referrals: No Primary/Family,Physician [Primary Care Provider] - In 1 week Problem List Clinical Impression: ESRD on hemodialysis, Anemia Patient/Caregiver Discharge Instructions Discharge Activity: activity as tolerated Education Materials: Anemia, CKD Dc Additional Instructions: Follow up with primary provider in 1-2 days. Come back to ED if symptoms change or worsen Print Language: Nigerien Stand Alone Forms: Bridget Award Info., Patient Portal Info Letter PA/ANNUAL GREENHOUSE MANAGER Supervising Physician PA/ANNUAL GREENHOUSE MANAGER Supervising Physician: chase
--- NOTE | 2025-05-22 16:52 | EKG_ITS ---
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1965 Requested By: Ellen Glass Order Number: [id number] Reading MD: Ellen Glass Measurements Intervals [place] Rate: 71 P: -17 LA: 234 QRS: 19 QRSD: 120 T: 181 QT: 441 QTc: 481 Interpretive Statements SINUS RHYTHM WITH FIRST DEGREE AV BLOCK WITH OCCASIONAL SUPRAVENTRICULAR PREMATURE COMPLEXES PROBABLE LATERAL MYOCARDIAL INFARCTION , OF INDETERMINATE AGE [35 ms Q WAVE IN I/aVL/V5/V6] Compared to ECG 04/05/2025 11:12:45 First degree AV block now present Myocardial infarct finding now present Atrial fibrillation no longer present Intraventricular conduction delay no longer present /store/S0/[id number].pdf
--- NOTE | 2025-05-22 16:53 | XR_ITS ---
Examination: PA chest single view Technique: Upright PA chest single view Date and time: May 22, 2025, 1656 hrs., Comparison April 04, 2025 Indications: Weakness today. Findings: Mild CHF. Mild enlargement cardiac contour. Prominent vascular congestion including central vascular engorgement Perihilar basilar edema Mild osteopenia. Impression: Mild CHF
[2025-05-22 17:31] LABS: Basophils # (Auto) 0.0 Thou/mm3 (0.0-0.2); Basophils % (Auto) 1 % (0-2.5); Eosinophils # (Auto) 0.2 Thou/mm3 (0.0-0.5); Eosinophils % (Auto) 3 % (0-10); Hematocrit 22.2 % (41.0-53.0); Immature Granulocytes Auto 0.02 Thou/mm3 (0.00-0.00); Lymphocytes # (Auto) 1.0 Thou/mm3 (1.0-4.8); Lymphocytes % (Auto) 20 % (10-50); Mean Corpuscular HGB Conc 34.2 g/dl (31.0-37.0); Mean Corpuscular Hemoglobin 32.9 pg (25.0-35.0); Mean Corpuscular Volume 96 fL (80-100); Monocytes # (Auto) 0.4 Thou/mm3 (0.0-0.8); Monocytes % (Auto) 8 % (0-12); Neutrophils # (Auto) 3.5 Thou/mm3 (1.8-7.7); Neutrophils % (Auto) 68 % (37-80); Nucleated Red Blood Cell # 0.00 Thou/mm3 (0.00-0.00); Nucleated Red Blood Cell % 0 /100 WBC (0); Platelet Count 82 Thou/mm3 (140-440); RDW Standard Deviation 66.4 fL (35.1-43.9); Red Blood Count 2.31 Miln/mm3 (4.50-5.90); White Blood Count 5.1 Thou/mm3 (3.8-10.6)
[2025-05-22 17:32] LABS: B-Type Natriuretic Peptide 369 pg/mL (0-100)
[2025-05-22 17:33] LABS: Alanine Aminotransferase 13 U/L (10-49); Albumin, Serum 3.7 gm/dL (3.5-5.0); Albumin/Globulin Ratio 0.9 (1.2-2.2); Alkaline Phosphatase 96 U/L (46-116); Anion Gap 11 (7-16); Aspartate Amino Transferase 22 U/L (0-34); BUN/Creatinine Ratio 4 Ratio (12-20); Bilirubin,Total 0.4 mg/dL (0.3-1.2); Blood Urea Nitrogen 13 mg/dL (9-23); Calcium 9.5 mg/dL (8.3-10.6); Calcium (Corrected) 9.7 mg/dL (8.5-10.1); Carbon Dioxide 31.8 mMol/L (20.0-31.0); Chloride 93 mMol/L (98-107); Creatinine (Component) 3.7 mg/dL (0.6-1.3); Estimated Creatinine Clearance 30.2 mL/min (>60); Globulin 4.3 gm/dL (2.3-3.5); Glucose 97 mg/dL (74-106); Osmolality,Calculated 272 (275-295); Potassium 3.8 mMol/L (3.4-5.1); Sodium 136 mMol/L (136-145); Total Protein 8.0 gm/dL (5.7-8.2); Troponin I < 0.020 ng/mL (0.0-0.045); eGFR 18 See Note
[2025-05-22 17:37] LABS: Hemoglobin 7.6 g/dL (13.5-16.0); INR 1.2 (0.9-1.3); Prothrombin Time 12.5 Seconds (9.0-12.2)
[2025-05-22 20:24] VITALS: BP 110/64; PULSE 74; RESP 18; TEMP 36.3; O2SAT 100
== END 2025-05-22 20:29 | disposition home or self-care (01) ==
PROVIDERS: Nurse Practitioner Family; Emergency Provider Emergency Medicine
DX: N18.6 End stage renal disease (principal); D63.1 Anemia in chronic kidney disease; I50.9 Heart failure, unspecified; I44.0 Atrioventricular block, first degree; Z99.2 Dependence on renal dialysis
CPT/HCPCS: 36415; 71045; 80053; 83880; 84484; 85025; 85610; 86850; 86900; 86901; 93005; 99283

== ENCOUNTER 2025-05-29 16:49 | Emergency (ER) | payer MEDICARE, MEDICAID, SELFPAY ==
[2025-05-29] VITALS (13 sets, daily range): BP systolic 105–127; BP diastolic 51–72; PULSE 60–88; RESP 14–19; TEMP 36.7–37; O2SAT 95–100; BMI 34.0
--- NOTE | 2025-05-29 16:55 | EKG_ITS ---
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1965 Requested By: Solo Messina Order Number: [id number] Reading MD: Solo Messina Measurements Intervals [place] Rate: 66 P: 19 DE: 258 QRS: 25 QRSD: 118 T: 116 QT: 456 QTc: 481 Interpretive Statements SINUS RHYTHM WITH FIRST DEGREE AV BLOCK WITH FREQUENT SUPRAVENTRICULAR PREMATURE COMPLEXES LOW QRS VOLTAGE IN PRECORDIAL LEADS [QRS DEFLECTION < 1.0 mV IN CHEST LEADS] POSSIBLE LATERAL MYOCARDIAL INFARCTION , OF INDETERMINATE AGE [30 ms Q WAVE IN I/aVL/V5/V6] MODERATE T-WAVE ABNORMALITY, CONSIDER ANTERIOR ISCHEMIA [-0.1+ mV T-WAVE IN V3/V4] Compared to ECG 05/22/2025 16:54:37 Low QRS voltage now present T-wave abnormality now present Possible ischemia now present Myocardial infarct finding still present /store/S0/[id number]/[id number].pdf
--- NOTE | 2025-05-29 16:59 | PD.EDADULT ---
ED General RME/HPI General Chief complaint: Weakness Stated complaint: WEAKNESS Time Seen by Provider: 05/29/25 16:54 Arrival date/time: 05/29/25 16:49 RME / HPI RME / HPI narrative: 59 year old male with history of HFpEF (50% 12/2024), ESRD on HD M/W/F, chronic thrombocytopenia, chronic anemia with recurrent biweekly blood transfusions, hypothyroidism presents to the ED BIBA from the dialysis center for evaluation of hypotension, hypoxia, and bradycardia today. Per medics, staff at the dialysis center reported after the patient completed his full dialysis treatment was noted to be bradycardic in the 30s, hypotensive SBP 80s, and saturating 88% on room air. During that time the patient reported feeling globally weak. Per medics, on their arrival patients SBP 170s, HR 60s, and saturating 97% on 2L nasal cannula. In the ED, patient states he last received a blood transfusion 2 weeks ago and feels he may need to be transfused today. No other associated symptoms or complaints reported. Related Data Home Medications ?Medication ?Instructions ?Recorded ?Confirmed diphenhydramine HCl 25 mg capsule 25 mg PO TID PRN Itching 08/20/22 04/05/25 (Benadryl) vitamin B comp no.3-folic acid 1 1 tab PO QDAY 08/20/22 04/05/25 mg-vit C 60 mg-biotin 300 mcg tablet ([facility]) sucroferric oxyhydroxide 500 mg 500 mg PO QID 10/03/22 04/05/25 chewable tablet (Velphoro) carvedilol 12.5 mg tablet 12.5 mg PO BID 08/04/23 04/05/25 Held on 04/11/25. Instructions: Resume on 04/11/25. Hold until you see your PCP furosemide 40 mg tablet 40 mg PO QDAY 08/04/23 04/05/25 Held on 04/11/25. Instructions: Resume on 04/11/25. Hold until you see your PCP levothyroxine 112 mcg tablet 112 mcg PO ACBR 02/10/25 04/05/25 Previous Rx's ?Medication ?Instructions ?Recorded midodrine 5 mg tablet 5 mg PO TID #90 tabs 04/11/25 Allergies Allergy/AdvReac Type Severity Reaction Status Date / Time adhesive tape Allergy Severe Rash Verified 05/22/25 16:11 vancomycin AdvReac Severe Rash Verified 05/22/25 16:11 Review of Systems Review of Systems Systems Reviewed: All systems reviewed, normal except as documented Past Medical History Past Medical History NEUROLOGIC: Positive Neurological Disorders and Peripheral Neuropathy CARDIAC: Positive Cardiac Arrhythmia RESPIRATORY: Positive Sleep Apnea GASTROINTESTINAL: Positive Gastrointestinal Disorders, Gastrointestinal Bleed, Ulcer and Obesity GENITOURINARY: Positive Genitourinary Disorders, Renal Disease and Dialysis ENDOCRINE: Positive Endocrine Disorders, Hypoglycemia and Hypothyroidism HEMATOLOGIC: Positive Blood Disorders and Anemia PSYCHO/SOCIAL: Positive Depression and Anxiety OTHER HISTORY: Positive Blood Transfusions and Chicken Pox Family History FAMILY HISTORY: Positive Family Psychiatric Problems and Family Respiratory Disorders Surgical History SURGICAL: Positive Vascular Surgery and Tonsillectomy Social History SMOKING STATUS: Never smoker SECOND HAND EXPOSURE: No SUBSTANCE USE: does not use ED Exam Narrative Physical exam: see MDM Course Quality Measures none Orders Category Date Time Status 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 X1 Care 05/29/25 16:56 Active Continuous Pulse Oximetry NOW Care 05/29/25 16:56 Completed EKG (ED ONLY) *Do not use* NOW Care 05/29/25 16:55 Completed IV [Insert IV] NOW Care 05/29/25 16:56 Active Transfuse,blood/blood products NOW Care 05/29/25 18:18 Active EKG (ED Only) Stat Exams 05/29/25 16:55 Draft CBC Stat Lab 05/29/25 17:14 Completed CMP [Comprehensive Metabolic Panel] Stat Lab 05/29/25 17:14 Completed Hemoglobin and Hematocrit Stat Lab 05/30/25 02:35 Completed Hgb and Hct Post-Transfusion Stat Lab 05/30/25 01:34 Completed INR [Prothrombin Time with INR] Stat Lab 05/29/25 17:14 Completed Magnesium Stat Lab 05/29/25 17:14 Completed PTT [Partial Thromboplastin Time] Stat Lab 05/29/25 17:14 Completed Path Review Blood Smear Stat Lab 05/29/25 17:14 Completed Phosphorous Stat Lab 05/29/25 17:14 Completed Troponin I Stat Lab 05/29/25 17:14 Completed Type and Screen Stat Lab 05/29/25 17:14 Completed prbc [Red Blood Cells] Stat Lab 05/29/25 17:14 Completed Aspirin Chew Med 05/29/25 17:29 Discontinued 324 mg PO X1 ONE Vital Signs Vital signs: Vital Signs Temperature 98.2 F 05/29/25 16:55 Pulse Rate 65 05/29/25 16:55 Respiratory Rate 18 05/29/25 16:55 Blood Pressure 106/61 05/29/25 16:55 Pulse Oximetry (%) 100 05/29/25 16:55 Oxygen Delivery Method Room Air 05/29/25 16:55 Pulse ox is 100% on room air which is adequate. Discharge Plan Plan Patient Disposition: HOME (Self Care) Prescriptions/Referrals Prescriptions/Med Rec: No Action furosemide 40 mg Tablet 40 mg PO QDAY carvedilol 12.5 mg Tablet 12.5 mg PO BID Rx Instructions: must administer with a meal/food midodrine 5 mg Tablet 5 mg PO TID Qty: 90 0RF diphenhydramine HCl [Benadryl] 25 mg Capsule 25 mg PO TID PRN (Reason: Itching) [facility] Rx 1-60-300 mg-mg-mcg tablet 1 tab PO QDAY Patient Comments: TAKE 1 TABLET BY MOUTH DAILY Velphoro 500 mg tablet,chewable 500 mg PO QID Patient Comments: CHEW AND SWALLOW 1 TABLET BY MOUTH FOUR TIMES DAILY WITH FOOD levothyroxine 112 mcg tablet 112 mcg PO ACBR Referrals: Shad Cotton MD [Primary Care Provider, Nephrology] - In 1 week Problem List Clinical Impression: Severe anemia Patient/Caregiver Discharge Instructions Discharge Activity: activity as tolerated Education Materials: ED Anemia Type Not Specified Additional Instructions: Discharge Instructions from Dr. Kilgore printed for you: 1. You were given 2 units of blood for severe anemia. 2. Continue current care with your private doctors. 3. Seek immediate medical care with worsening or with any concerns. Print Language: Estonian Stand Alone Forms: Bridget Award Info., Patient Portal Info Letter Attestation Attestation I took over the care from Dr. Fuchs at 6 PM on 05/29/2025, see his notes for complete H&P and ED course. I reviewed all diagnostic test results. Diagnoses include: Severe anemia Treatment here included: 2 units pRBCs Significant improvement noted. Based on my best medical judgment, made decision no further evaluation or treatment indicated at this time. Patient understands and agrees to the discharge instructions customized and printed, see below. Discharge Instructions from Dr. Kilgore printed for you: 1. You were given 2 units of blood for severe anemia. 2. Continue current care with your private doctors. 3. Seek immediate medical care with worsening or with any concerns. Shaun Kilgore MD MDM Narrative [facility] hospital course: This section includes all my notes and documentations, including HPI, PE, and ED course. Koffi Fuchs MD ? HPI: 59 year old male with history of HFpEF (50% 12/2024), ESRD on HD M/W/F, chronic thrombocytopenia, chronic anemia with recurrent biweekly blood transfusions, hypothyroidism presents to the ED BIBA from the dialysis center for evaluation of hypotension, hypoxia, and bradycardia today. Per medics, staff at the dialysis center reported after the patient completed his full dialysis treatment was noted to be bradycardic in the 30s, hypotensive SBP 80s, and saturating 88% on room air. During that time the patient reported feeling globally weak. Per medics, on their arrival patients SBP 170s, HR 60s, and saturating 97% on 2L nasal cannula. In the ED, patient states he last received a blood transfusion 2 weeks ago and feels he may need to be transfused today. No other associated symptoms or complaints reported. ? ROS: All negative except as documented in HPI. ? PE: GENERAL APPEARANCE:? alert and oriented x 4, well-developed, well-nourished, pale VITALS: All vitals were reviewed and the pulse ox is % on room air, which is normal according to my interpretation. HEENT: Normocephalic, atraumatic; pupils equal, round, reactive to light; EOMI; mucous membranes pink, moist; oropharynx clear NECK: Supple LUNGS: CTABL; no wheezes, no rales, no rhonchi HEART: Regular rate, regular rhythm; normal S1, S2; no murmurs ABDOMEN: non distended; normal BS;? soft, no tenderness, no guarding, no rebound; no masses, no organomegaly, no hernia?? BACK:? no CVA tenderness EXTREMITIES:? fresh bandage over dialysis graft in the left upper extremity; no edema NEUROLOGIC: awake; alert and oriented x4; cranial nerves II-XII grossly intact; no focal sensory or motor deficits PSYCHIATRIC:? appropriate mood and affect SKIN: warm, dry, pale; no rashes ? I reviewed EMS notes. ? I reviewed all diagnostic test results: My interpretation of the EKG @ 17:08h NSR, hr 66, frequent PACs, ST depression V1 through V4, no STEMI. ? Blood tests and urine test: H/H 02/23/07/12 ? At this point, diagnoses include: Anemia ? Treatment here included: Aspirin ? 1800: Patent signed out to Dr. Kilgore pending labs and final disposition. Clinical Information Provided by patient and EMS Medical Records [facility]ed [facility] and [facility] Meds/Rx Considered, not Ordered None Labs/Rad/Tests considered, not Ordered None Chronic Illness/Social Conditions which may negatively complicate care or outcome(s)-explain: CHF/CAD/Cardiac illness Lab Interpretation Labs: interpreted by me and see narrative above Imaging Imaging interpretation: none Medication Administration(s) none Medication Administration History Discontinued Medications Aspirin (Aspirin 81 Mg Chew) 324 mg PO X1 ONE Stop: 05/29/25 17:30 Last Admin: 05/29/25 17:49 Dose: 324 mg Documented By: ER See above
[2025-05-29 17:33] LABS: Basophils # (Auto) 0.0 Thou/mm3 (0.0-0.2); Basophils % (Auto) 0 % (0-2.5); Eosinophils # (Auto) 0.2 Thou/mm3 (0.0-0.5); Eosinophils % (Auto) 5 % (0-10); Immature Granulocytes Auto 0.02 Thou/mm3 (0.00-0.00); Lymphocytes # (Auto) 0.9 Thou/mm3 (1.0-4.8); Lymphocytes % (Auto) 18 % (10-50); Mean Corpuscular HGB Conc 33.7 g/dl (31.0-37.0); Mean Corpuscular Hemoglobin 33.2 pg (25.0-35.0); Mean Corpuscular Volume 99 fL (80-100); Monocytes # (Auto) 0.3 Thou/mm3 (0.0-0.8); Monocytes % (Auto) 6 % (0-12); Neutrophils # (Auto) 3.4 Thou/mm3 (1.8-7.7); Neutrophils % (Auto) 71 % (37-80); Nucleated Red Blood Cell # 0.00 Thou/mm3 (0.00-0.00); Nucleated Red Blood Cell % 0 /100 WBC (0); RDW Standard Deviation 70.2 fL (35.1-43.9); Red Blood Count 1.96 Miln/mm3 (4.50-5.90); White Blood Count 4.8 Thou/mm3 (3.8-10.6)
[2025-05-29 17:44] LABS: INR 1.1 (0.9-1.3); Partial Thromboplastin Time 29.8 Seconds (22.0-36.0); Prothrombin Time 12.2 Seconds (9.0-12.2)
[2025-05-29] MEDS: ASPIRIN 81 MG CHEW 324 MG PO (17:49)
[2025-05-29 17:51] LABS: Alanine Aminotransferase 10 U/L (10-49); Albumin, Serum 3.7 gm/dL (3.5-5.0); Albumin/Globulin Ratio 0.8 (1.2-2.2); Alkaline Phosphatase 141 U/L (46-116); Anion Gap 13 (7-16); Aspartate Amino Transferase 23 U/L (0-34); BUN/Creatinine Ratio 5 Ratio (12-20); Bilirubin,Total 0.4 mg/dL (0.3-1.2); Blood Urea Nitrogen 17 mg/dL (9-23); Calcium 9.2 mg/dL (8.3-10.6); Calcium (Corrected) 9.4 mg/dL (8.5-10.1); Carbon Dioxide 30.9 mMol/L (20.0-31.0); Chloride 93 mMol/L (98-107); Creatinine (Component) 3.1 mg/dL (0.6-1.3); Estimated Creatinine Clearance 35.8 mL/min (>60); Globulin 4.4 gm/dL (2.3-3.5); Glucose 83 mg/dL (74-106); Magnesium 1.7 mg/dL (1.6-2.6); Osmolality,Calculated 274 (275-295); Phosphorous 2.4 mg/dL (2.4-5.1); Potassium 3.4 mMol/L (3.4-5.1); Sodium 137 mMol/L (136-145); Total Protein 8.1 gm/dL (5.7-8.2); Troponin I < 0.020 ng/mL (0.0-0.045); eGFR 22 See Note
[2025-05-29 18:00] LABS: Hematocrit 19.3 % (41.0-53.0); Hemoglobin 6.5 g/dL (13.5-16.0); Platelet Count 79 Thou/mm3 (140-440)
--- NOTE | 2025-05-29 18:13 | PD.EDADDENDU ---
Emergency Room Addendum <Lelo Chamorro - Last Filed: 05/30/25 01:31> Addendum Narrative: I took over the care from Dr. Fuchs at 6 PM on 05/29/2025, see his notes for complete H&P and ED course. I reviewed all diagnostic test results. Blood tests remarkable for Hgb 6.5, Hct 19.3. At this point, diagnoses include: Severe anemia Treatment here included: 2 units pRBCs Significant improvement noted. Based on my best medical judgment, made decision no further evaluation or treatment indicated at this time. Patient understands and agrees to the discharge instructions customized and printed, see below. Discharge Instructions from Dr. Kilgore printed for you: 1. You were given 2 units of blood for severe anemia. 2. Continue current care with your private doctors. 3. Seek immediate medical care with worsening or with any concerns. Shaun Kilgore MD <Shaun Kilgore MD - Last Filed: 05/30/25 03:44> Addendum Narrative: I took over the care from Dr. Fuchs at 6 PM on 05/29/2025, see his notes for complete H&P and ED course. I reviewed all diagnostic test results. Diagnoses include: Severe anemia Treatment here included: 2 units pRBCs Significant improvement noted. Based on my best medical judgment, made decision no further evaluation or treatment indicated at this time. Patient understands and agrees to the discharge instructions customized and printed, see below. Discharge Instructions from Dr. Kilgore printed for you: 1. You were given 2 units of blood for severe anemia. 2. Continue current care with your private doctors. 3. Seek immediate medical care with worsening or with any concerns. Shaun Kilgore MD
[2025-05-29 19:34] LABS: Path Review Blood Smear Sent to Pathologist; Slide Review Platelets confirmed
[2025-05-30 00:08] VITALS: BP 116/72; PULSE 70; RESP 16; TEMP 36.7; O2SAT 95
[2025-05-30 01:26] VITALS: BP 119/62; PULSE 66; RESP 18; TEMP 37.2; O2SAT 99
[2025-05-30 01:46] LABS: Hematocrit 20.4 % (41.0-53.0)
[2025-05-30 01:55] LABS: Hemoglobin 6.9 g/dL (13.5-16.0)
[2025-05-30 02:58] LABS: Hematocrit 21.9 % (41.0-53.0)
[2025-05-30 03:10] LABS: Hemoglobin 7.3 g/dL (13.5-16.0)
[2025-05-30 03:46] VITALS: BP 122/70; PULSE 65; RESP 18; TEMP 37.2; O2SAT 95
== END 2025-05-30 03:47 | disposition home or self-care (01) ==
PROVIDERS: Emergency Medicine; Emergency Provider Emergency Medicine; PCP Internal Medicine
DX: N18.6 End stage renal disease (principal); D63.1 Anemia in chronic kidney disease; I44.0 Atrioventricular block, first degree; I49.1 Atrial premature depolarization
CPT/HCPCS: 36415; 36430; 80053; 83735; 84100; 84484; 85014; 85018; 85025; 85610; 85730; 86850; 86900; 86901; 86902; 86921; 86922; 93005; 99284; P9016; A9270

== ENCOUNTER 2025-06-15 18:08 | Emergency (ER) | payer MEDICARE, MEDICAID, SELFPAY ==
[2025-06-15 18:09] VITALS: BMI 34.8
[2025-06-15 18:28] VITALS: BP 112/60; PULSE 79; RESP 20; TEMP 36.9; O2SAT 100; BMI 35.9
--- NOTE | 2025-06-15 18:36 | PD.EDRME ---
Rapid Medical Screening Exam E Arrival date/time: 06/15/25 18:08 60M with history of ESRD (does not make urine), hypothyroidism, and chronic anemia presents to ED needing blood transfusion due to low hemoglobin from outpatient labs. No symptoms except fatigue. Chief Complaint: General Adult/Misc Complain Time Seen by Provider: 06/15/25 18:35 Vital signs: Vital Signs Temperature 98.5 F 06/15/25 18:28 Pulse Rate 79 06/15/25 18:28 Respiratory Rate 20 06/15/25 18:28 Blood Pressure 112/60 06/15/25 18:28 Pulse Oximetry (%) 100 06/15/25 18:28 Oxygen Delivery Method Room Air 06/15/25 18:28
[2025-06-15 19:09] LABS: Basophils # (Auto) 0.0 Thou/mm3 (0.0-0.2); Basophils % (Auto) 1 % (0-2.5); Eosinophils # (Auto) 0.2 Thou/mm3 (0.0-0.5); Eosinophils % (Auto) 5 % (0-10); Immature Granulocytes Auto 0.01 Thou/mm3 (0.00-0.00); Lymphocytes # (Auto) 0.9 Thou/mm3 (1.0-4.8); Lymphocytes % (Auto) 25 % (10-50); Mean Corpuscular HGB Conc 34.0 g/dl (31.0-37.0); Mean Corpuscular Hemoglobin 34.2 pg (25.0-35.0); Mean Corpuscular Volume 101 fL (80-100); Monocytes # (Auto) 0.3 Thou/mm3 (0.0-0.8); Monocytes % (Auto) 9 % (0-12); Neutrophils # (Auto) 2.2 Thou/mm3 (1.8-7.7); Neutrophils % (Auto) 60 % (37-80); Nucleated Red Blood Cell # 0.00 Thou/mm3 (0.00-0.00); Nucleated Red Blood Cell % 0 /100 WBC (0); RDW Standard Deviation 70.6 fL (35.1-43.9); Red Blood Count 1.90 Miln/mm3 (4.50-5.90); White Blood Count 3.7 Thou/mm3 (3.8-10.6)
[2025-06-15 19:10] LABS: Platelet Count 76 Thou/mm3 (140-440)
[2025-06-15 19:13] LABS: Hematocrit 19.1 % (41.0-53.0); Hemoglobin 6.5 g/dL (13.5-16.0)
[2025-06-15 19:22] LABS: Path Review Blood Smear Sent to Pathologist; Slide Review Platelets confirmed
[2025-06-15 19:43] LABS: Alanine Aminotransferase 10 U/L (10-49); Albumin, Serum 3.7 gm/dL (3.5-5.0); Albumin/Globulin Ratio 1.0 (1.2-2.2); Alkaline Phosphatase 115 U/L (46-116); Anion Gap 13 (7-16); Aspartate Amino Transferase 19 U/L (0-34); BUN/Creatinine Ratio 5 Ratio (12-20); Bilirubin,Total 0.4 mg/dL (0.3-1.2); Blood Urea Nitrogen 26 mg/dL (9-23); Calcium 9.4 mg/dL (8.3-10.6); Calcium (Corrected) 9.6 mg/dL (8.5-10.1); Carbon Dioxide 31.9 mMol/L (20.0-31.0); Chloride 94 mMol/L (98-107); Creatinine (Component) 5.0 mg/dL (0.6-1.3); Estimated Creatinine Clearance 22.5 mL/min (>60); Globulin 3.7 gm/dL (2.3-3.5); Glucose 91 mg/dL (74-106); Osmolality,Calculated 282 (275-295); Potassium 5.2 mMol/L (3.4-5.1); Sodium 139 mMol/L (136-145); Total Protein 7.4 gm/dL (5.7-8.2); eGFR 13 See Note
[2025-06-15 21:48] VITALS: BP 120/43; PULSE 73; RESP 18; TEMP 36.6; O2SAT 98
--- NOTE | 2025-06-15 22:01 | PD.EDADULT ---
ED General RME/HPI General Chief complaint: General Adult/Misc Complain Stated complaint: NEED BLOOD TRANSFUSION Time Seen by Provider: 06/15/25 18:35 Arrival date/time: 06/15/25 18:08 RME / HPI RME / HPI narrative: 60M with history of ESRD (does not make urine), hypothyroidism, and chronic anemia presents to ED needing blood transfusion due to low hemoglobin from outpatient labs. No symptoms except fatigue. Denies any vomiting blood denies any blood in the stool. Patient last blood transfusion was 2 weeks ago. Related Data Home Medications ?Medication ?Instructions ?Recorded ?Confirmed diphenhydramine HCl 25 mg capsule 25 mg PO TID PRN Itching 08/20/22 04/05/25 (Benadryl) vitamin B comp no.3-folic acid 1 1 tab PO QDAY 08/20/22 04/05/25 mg-vit C 60 mg-biotin 300 mcg tablet ([facility]) sucroferric oxyhydroxide 500 mg 500 mg PO QID 10/03/22 04/05/25 chewable tablet (Velphoro) carvedilol 12.5 mg tablet 12.5 mg PO BID 08/04/23 04/05/25 Held on 04/11/25. Instructions: Resume on 04/11/25. Hold until you see your PCP furosemide 40 mg tablet 40 mg PO QDAY 08/04/23 04/05/25 Held on 04/11/25. Instructions: Resume on 04/11/25. Hold until you see your PCP levothyroxine 112 mcg tablet 112 mcg PO ACBR 02/10/25 04/05/25 Previous Rx's ?Medication ?Instructions ?Recorded midodrine 5 mg tablet 5 mg PO TID #90 tabs 04/11/25 Allergies Allergy/AdvReac Type Severity Reaction Status Date / Time adhesive tape Allergy Severe Rash Verified 06/15/25 18:08 vancomycin AdvReac Severe Rash Verified 06/15/25 18:08 Review of Systems Review of Systems Narrative Review of Systems: Review of system reviewed and within normal limits except mentioned in HPI ED Exam Narrative Physical exam: VITAL SIGNS: Reviewed. GENERAL APPEARANCE: Alert and interactive, follows commands, no acute distress, HEAD AND FACE: Non-traumatic. ENT: PERRL, pink conjunctivitis, eyelid no trauma, Mucous membrane dry NECK: Supple, nontender, no nuchal rigidity. CHEST: No tenderness, no crepitus, no paradoxical movement, no retractions. LUNGS: Clear, well ventilated, symmetric, no rales, no wheezing, no ronchi, no stridor, good breath sounds bilaterally. HEART: Regular rate, regular rhythm, no murmur, no gallops. ABDOMEN: Soft, positive bowel sounds, nondistended, no guarding, nontender, no rebound, no masses, RECTAL: Deferred. GENITAL: Deferred. NEUROLOGICAL: Gross motor function intact sensory function intact, Appropriate for age. MUSCULOSKELETAL: low back nontender, full range of motion. EXTREMITIES: Nontender, full range of motion. Left arm AV fistula with thrill SKIN: Color pink, dry, no rash, no lacerations, no abrasions, no contusions. LYMPHATICS: Deferred. Course Quality Measures none Orders Category Date Time Status Insert IV NOW Care 06/15/25 18:36 Completed Transfuse,blood/blood products ONCE Care 06/15/25 21:04 Completed CBC Stat Lab 06/15/25 18:47 Completed CMP [Comprehensive Metabolic Panel] Stat Lab 06/15/25 18:47 Completed Path Review Blood Smear Stat Lab 06/15/25 18:47 Completed Type and Screen Stat Lab 06/15/25 18:47 Completed prbc [Red Blood Cells] Stat Lab 06/15/25 18:47 Completed Vital Signs Vital signs: Vital Signs Temperature 98.5 F 06/15/25 18:28 Pulse Rate 79 06/15/25 18:28 Respiratory Rate 20 06/15/25 18:28 Blood Pressure 112/60 06/15/25 18:28 Pulse Oximetry (%) 100 06/15/25 18:28 Oxygen Delivery Method Room Air 06/15/25 18:28 Discharge Plan Plan Patient Disposition: HOME (Self Care) Discharge Disposition comment: stable Prescriptions/Referrals Prescriptions/Med Rec: No Action furosemide 40 mg Tablet 40 mg PO QDAY carvedilol 12.5 mg Tablet 12.5 mg PO BID Rx Instructions: must administer with a meal/food midodrine 5 mg Tablet 5 mg PO TID Qty: 90 0RF diphenhydramine HCl [Benadryl] 25 mg Capsule 25 mg PO TID PRN (Reason: Itching) [facility] Rx 1-60-300 mg-mg-mcg tablet 1 tab PO QDAY Patient Comments: TAKE 1 TABLET BY MOUTH DAILY Velphoro 500 mg tablet,chewable 500 mg PO QID Patient Comments: CHEW AND SWALLOW 1 TABLET BY MOUTH FOUR TIMES DAILY WITH FOOD levothyroxine 112 mcg tablet 112 mcg PO ACBR Referrals: Shad Cotton MD [Primary Care Provider, Nephrology] - In 1 week Problem List Clinical Impression: ESRD on hemodialysis, Anemia Patient/Caregiver Discharge Instructions Discharge Activity: activity as tolerated Education Materials: Anemia Additional Instructions: Thank you for the opportunity for serving you today. You are stable for discharged . You are advised to: Follow-up with your PCP in 1 to 2 days Return to ED for worsening of symptoms Print Language: Uruguayan Stand Alone Forms: [employer]idget Award Info., Patient Portal Info Letter MDM Narrative MDM hospital course (for use when minimal MDM required): 60M with history of ESRD (does not make urine), hypothyroidism, and chronic anemia presents to ED needing blood transfusion due to low hemoglobin from outpatient labs. No symptoms except fatigue. Denies any vomiting blood denies any blood in the stool. Patient last blood transfusion was 2 weeks ago. Patient's hemoglobin today was noted to be 6.5, hematocrit of 19.1. Patient received 2 units of packed RBC. Patient tolerated blood transfusion well no complication noted stable for discharge home. Scheduled for hemodialysis in the morning.
[2025-06-15 22:18] VITALS: BP 110/75; PULSE 82; RESP 14; TEMP 36.6; O2SAT 99
[2025-06-15 22:34] VITALS: BP 108/65; PULSE 84; RESP 14; TEMP 36.6; O2SAT 99
[2025-06-15 22:49] VITALS: BP 112/85; PULSE 80; RESP 14; TEMP 36.7; O2SAT 99
[2025-06-16 00:10] VITALS: BP 114/55; PULSE 73; RESP 19; O2SAT 98
[2025-06-16 00:14] VITALS: BP 114/55; PULSE 73; RESP 14; TEMP 36.7; O2SAT 99
[2025-06-16 00:15] VITALS: BP 112/58; PULSE 79; RESP 14; TEMP 36.4; O2SAT 99
[2025-06-16 00:32] VITALS: BP 118/64; PULSE 67; RESP 14; TEMP 36.7; O2SAT 99
[2025-06-16 00:47] VITALS: BP 114/62; PULSE 68; RESP 16; TEMP 36.7; O2SAT 99
[2025-06-16 02:15] VITALS: BP 115/60; PULSE 85; RESP 14; TEMP 36.7; O2SAT 99
== END 2025-06-16 02:41 | disposition home or self-care (01) ==
PROVIDERS: Physician Assistant; Emergency Provider Emergency Medicine; PCP Internal Medicine
DX: N18.6 End stage renal disease (principal); D63.1 Anemia in chronic kidney disease; Z99.2 Dependence on renal dialysis
CPT/HCPCS: 36415; 36430; 80053; 85025; 86850; 86900; 86901; 86902; 86921; 86922; 99284; P9016

== ENCOUNTER 2025-07-05 15:41 | Emergency (ER) | payer MEDICARE, MEDICAID, SELFPAY ==
[2025-07-05] VITALS (10 sets, daily range): BP systolic 111–135; BP diastolic 52–74; PULSE 69–87; RESP 11–20; TEMP 36.4–37; O2SAT 93–98
--- NOTE | 2025-07-05 16:17 | PD.EDRME ---
Rapid Medical Screening Exam E Arrival date/time: 07/05/25 15:41 60-year-old male with a history of anemia and dialysis reports with complaints of low blood iron levels Chief Complaint: Recheck/Abnormal Lab/Rx Vital signs: Vital Signs Temperature 98.3 F 07/05/25 16:09 Pulse Rate 72 07/05/25 16:09 Respiratory Rate 20 07/05/25 16:09 Blood Pressure 111/58 L 07/05/25 16:09 Pulse Oximetry (%) 98 07/05/25 16:09 Oxygen Delivery Method Room Air 07/05/25 16:09
[2025-07-05 16:48] LABS: Basophils # (Auto) 0.0 Thou/mm3 (0.0-0.2); Basophils % (Auto) 1 % (0-2.5); Eosinophils # (Auto) 0.2 Thou/mm3 (0.0-0.5); Eosinophils % (Auto) 4 % (0-10); Immature Granulocytes Auto 0.02 Thou/mm3 (0.00-0.00); Lymphocytes # (Auto) 0.9 Thou/mm3 (1.0-4.8); Lymphocytes % (Auto) 21 % (10-50); Mean Corpuscular HGB Conc 34.7 g/dl (31.0-37.0); Mean Corpuscular Hemoglobin 34.5 pg (25.0-35.0); Mean Corpuscular Volume 100 fL (80-100); Monocytes # (Auto) 0.3 Thou/mm3 (0.0-0.8); Monocytes % (Auto) 7 % (0-12); Neutrophils # (Auto) 2.8 Thou/mm3 (1.8-7.7); Neutrophils % (Auto) 66 % (37-80); Nucleated Red Blood Cell # 0.00 Thou/mm3 (0.00-0.00); Nucleated Red Blood Cell % 0 /100 WBC (0); RDW Standard Deviation 62.9 fL (35.1-43.9); Red Blood Count 1.97 Miln/mm3 (4.50-5.90); White Blood Count 4.2 Thou/mm3 (3.8-10.6)
[2025-07-05 16:52] LABS: Hematocrit 19.6 % (41.0-53.0); Hemoglobin 6.8 g/dL (13.5-16.0); Platelet Count 79 Thou/mm3 (140-440)
[2025-07-05 17:24] LABS: Slide Review Platelets confirmed
--- NOTE | 2025-07-05 19:40 | PD.EDRECHK ---
ED Recheck Abnl Lab Rx-RME/HPI General Chief Complaint: Recheck/Abnormal Lab/Rx Stated Complaint: I NEED A BLOOD TRANSFUSION Time Seen by Provider: 07/05/25 19:40 Arrival date/time: 07/05/25 15:41 60M with history of ESRD, hypothyroidism, and chronic anemia presents to ED needing blood transfusion due to low hemoglobin outpatient today. No symptoms other than fatigue. Limitations: no limitations RME / HPI RME / HPI narrative: 07/05/25 15:41 60-year-old male with a history of anemia and dialysis reports with complaints of low blood iron levels Related Data Home Medications ?Medication ?Instructions ?Recorded ?Confirmed diphenhydramine HCl 25 mg capsule 25 mg PO TID PRN Itching 08/20/22 04/05/25 (Benadryl) vitamin B comp no.3-folic acid 1 1 tab PO QDAY 08/20/22 04/05/25 mg-vit C 60 mg-biotin 300 mcg tablet ([facility]) sucroferric oxyhydroxide 500 mg 500 mg PO QID 10/03/22 04/05/25 chewable tablet (Velphoro) carvedilol 12.5 mg tablet 12.5 mg PO BID 08/04/23 04/05/25 Held on 04/11/25. Instructions: Resume on 04/11/25. Hold until you see your PCP furosemide 40 mg tablet 40 mg PO QDAY 08/04/23 04/05/25 Held on 04/11/25. Instructions: Resume on 04/11/25. Hold until you see your PCP levothyroxine 112 mcg tablet 112 mcg PO ACBR 02/10/25 04/05/25 Previous Rx's ?Medication ?Instructions ?Recorded midodrine 5 mg tablet 5 mg PO TID #90 tabs 04/11/25 Allergies Allergy/AdvReac Type Severity Reaction Status Date / Time adhesive tape Allergy Severe Rash Verified 07/05/25 15:43 vancomycin AdvReac Severe Rash Verified 07/05/25 15:43 Review of Systems Review of Systems Systems Reviewed: All systems reviewed, normal except as documented Constitutional Constitutional: Reports as per HPI and Reports fatigue Endocrine Endocrine: Reports fatigue Past Medical History Past Medical History NEUROLOGIC: Positive Neurological Disorders and Peripheral Neuropathy; Negative Cerebrovascular Accident, Transient Ischemic Attacks (TIA), Dementia, Alzheimer's Disease, Parkinson's Disease, Brain Tumor, Meningitis, Seizures, Epilepsy, Multiple Sclerosis, Cerebral Palsy, Amyotrophic Lateral Sclerosis (ALS/Carmela Gehrig's), Guillain-Salinas Syndrome, Spina Bifida, Paralysis, Fermin's Palsy, Subdural Hematoma, Migraine, Head Trauma, Spinal Cord Injury or Traumatic Brain Injury CARDIAC: Positive Cardiac Arrhythmia; Negative Cardiac Disorders, Myocardial Infarction, Atrial Fibrillation, Angina, Heart Murmur, Coronary Artery Disease, Atherosclerotic Heart Disease, Peripheral Vascular Disease, Hypercholesterolemia, Aneurysm, Congestive Heart Failure, Congenital Heart Disease, Valvular Heart Disease, Rheumatic Fever, Cardiomyopathy, Pericarditis, Cellulitis, Deep Vein Thrombosis, Hypertension, Hypotension or Varicose Veins RESPIRATORY: Positive Sleep Apnea; Negative Chronic Obstructive Pulmonary Disease (COPD), Asthma, Bronchitis, Emphysema, Pneumonia, Pulmonary Fibrosis, Cystic Fibrosis, Tuberculosis, Pulmonary Embolism or Pulmonary Edema GASTROINTESTINAL: Positive Gastrointestinal Disorders, Gastrointestinal Bleed, Ulcer and Obesity; Negative Hepatitis, Cirrhosis, Pancreatitis, Celiac Disease, Gall Bladder Disease, Esophageal Varices, Kc's Esophagus, Colitis, Ulcerative Colitis, Diverticulitis, Diverticulosis, Colorectal Cancer, Irritable Bowel, Crohn's Disease, Obstructive Bowel, Hiatal Hernia, Hemorrhoids or Gastroesophageal Reflux Disease GENITOURINARY: Positive Genitourinary Disorders, Renal Disease and Dialysis; Negative Kidney Stones, Polycystic Kidney Disease, Neurogenic Bladder, Inguinal Hernia, Prostate Cancer or Benign Prostatic Hyperplasia REPRODUCTIVE: Negative Breast Cancer, Genital Herpes, Gonorrhea, Syphilis or Testicular Cancer MUSCULOSKELETAL: Negative Musculoskeletal Disorders, Muscular Dystrophy, Myasthenia Gravis, Marfan's Syndrome, Bone Cancer, Arthritis, Rheumatoid Arthritis, Osteoporosis, Degenerative Disk Disease, Gout, Scoliosis, Carpal Tunnel Syndrome, Fibromyalgia, Fractures, Degenerative Joint Disease, Osteomyelitis or Poliovirus ENT: Negative Cataracts, Glaucoma, Blind, Retinal Detachment, Macular Degeneration, Ear Infection, Deafness, Head Trauma or Eye Prosthesis ENDOCRINE: Positive Endocrine Disorders, Hypoglycemia and Hypothyroidism; Negative Diabetes Mellitus Type 1, Diabetes Mellitus Type 2, Óscar's Syndrome, Lafayette's Disease, Hyperthyroidism, Parathyroid Disease, Pituitary Disease, Systemic Lupus Erythematosus, Syndrome of Inappropriate Antidiuretic Hormone (SIADH), Adrenal Disease or Graves' Disease HEMATOLOGIC: Positive Blood Disorders and Anemia; Negative Leukemia, Hemophilia, Thalassemia, Sickle Cell Disease or Clotting Problems PSYCHO/SOCIAL: Positive Depression and Anxiety; Negative Psychiatric Problems, Schizophrenia, Recreational Drug Use, Bipolar Disorder, Behavior Problems, Self-Mutilation, Attention Deficit Disorder, Attention Deficit Hyperactivity Disorder, Depression, Post Traumatic Stress Disorder or Eating Disorder OTHER HISTORY: Positive Blood Transfusions and Chicken Pox; Negative Hospitalization, Autoimmune Disease, Down Syndrome, Autism, Developmental Delay, Shingles, Falls, Blood Transfusion Reaction, Anesthesia Reactions, Organ Transplant, Chemotherapy, Radiation Therapy, Hyperbaric Therapy, MRSA, VRSA, Vancomycin-Resistant Enterococci, Human Immunodeficiency Virus (HIV), Measles, Mumps, Rubella (Liberian Measles), Pertussis, Clostridium Difficile, Cancer, Breast Cancer, Cervical Cancer, Colorectal Cancer, Lung Cancer, Ovarian Cancer, Prostate Cancer or Testicular Cancer Family History FAMILY HISTORY: Positive Family Psychiatric Problems and Family Respiratory Disorders; Negative Family Cardiac Disorders, Family Gastrointestinal Problems, Family Cancer, Family Surgery or Family Anesthesia Reaction Surgical History SURGICAL: Positive Vascular Surgery and Tonsillectomy; Negative Cardiac Surgery, Open Heart Surgery, Coronary Artery Bypass Graft, Valve Replacement, Coronary Stent, Cardiac Catheterization, Pacemaker, Angiogram, Auto Implanted Cardiovert Defib, Carotid Endarterectomy, Endocrine Surgery, Thyroidectomy, Ear Surgery, Tympanostomy Tube, Eye Surgery, Nose Surgery, Oral Surgery, Adenoidectomy, Cochlear Implant, Corneal Transplant, Throat Surgery, Abdominal Surgery, Tracheostomy, Gastric Bypass Surgery, Gastrostomy, Bowel Surgery, Nephrectomy, Transurethral Resection, Joint Replacement, Amputation, Open Reduction Internal Fixation, Arthroscopy, Neurologic Surgery, Brain Shunt, Vasectomy or Organ Transplant Social History SMOKING STATUS: Never smoker SECOND HAND EXPOSURE: No SUBSTANCE USE: does not use ED Exam General Limitations: Present no limitations General appearance: Present alert and in no apparent distress Head Head exam: Present atraumatic Neck Neck exam: Present normal inspection, full ROM and trachea midline Chest Chest inspection: Present normal inspection and symmetric chest wall rise Neurological Exam Neurological exam: Present alert and oriented X3 Psychiatric Psychiatric exam: Present normal affect and normal mood Skin Skin exam: Present warm, dry, intact and pallor Course Quality Measures none Orders Category Date Time Status Insert IV NOW Care 07/05/25 18:23 Active CBC Stat Lab 07/05/25 16:28 Completed Type and Screen Stat Lab 07/05/25 16:28 Completed prbc [Red Blood Cells] Stat Lab 07/05/25 16:28 Completed Vital Signs Vital signs: Vital Signs Temperature 98.3 F 07/05/25 16:09 Pulse Rate 72 07/05/25 16:09 Respiratory Rate 20 07/05/25 16:09 Blood Pressure 111/58 L 07/05/25 16:09 Pulse Oximetry (%) 98 07/05/25 16:09 Oxygen Delivery Method Room Air 07/05/25 16:09 O2 at 98% on RA and WNLs Recheck / Abnormal Lab / Rx MDM Narrative MDM Narrative:: 60M with history of ESRD, hypothyroidism, and chronic anemia presents to ED needing blood transfusion due to low hemoglobin outpatient today. No symptoms other than fatigue. Physical exam reveals male in no acute distress. Normal WOB. Patient is afebrile, calm, and alert. HgB 6.8. 2 units given w/o complication. Patient data External records reviewed:: [facility] previous records Clinical information provided by:: patient Social determinants that could affect healthcare access:: none Patient has the following chronic illnesses:: ESRD, hypothyroidism, and chronic anemia How is presenting disease/condition affected by chronic disease/condition?: exacerbated by Evaluation data The following diagnostics were reviewed and interpreted by me:: lab results Lab and/or radiology exams considered but not ordered:: ordered Interpretation Summary: above Medications / Prescriptions Medications or Prescriptions considered but not ordered:: blood Medication administrations:: above Consultations Consultation(s) initiated? (list below): No Diagnosis Recheck Differential Diagnosis: encounter for medication refill, encounter for wound recheck, encounter for recheck of burn, encounter for removal of sutures, warfarin-induced coagulopathy and other (anemia) Most likely diagnosis given after review of the tests above:: anemia Admission Indicated Admission indicated?: not indicated Admission Request Was there a request for admission?: No Disposition Plan Disposition Plan: Discharge Discharge Attestation Discharge Attestation: The patient and all family members were given an opportunity to ask questions and understood the discharge instructions. Discharge instructions specifically effects, indications for sooner follow up or return to the emergency department, and the expected course of current diagnosis. Patient condition: Stable Discharge Plan Plan Patient Disposition: HOME (Self Care) Discharge Disposition comment: Stable Prescriptions/Referrals Prescriptions/Med Rec: No Action furosemide 40 mg Tablet 40 mg PO QDAY carvedilol 12.5 mg Tablet 12.5 mg PO BID Rx Instructions: must administer with a meal/food midodrine 5 mg Tablet 5 mg PO TID Qty: 90 0RF diphenhydramine HCl [Benadryl] 25 mg Capsule 25 mg PO TID PRN (Reason: Itching) [facility] Rx 1-60-300 mg-mg-mcg tablet 1 tab PO QDAY Patient Comments: TAKE 1 TABLET BY MOUTH DAILY Velphoro 500 mg tablet,chewable 500 mg PO QID Patient Comments: CHEW AND SWALLOW 1 TABLET BY MOUTH FOUR TIMES DAILY WITH FOOD levothyroxine 112 mcg tablet 112 mcg PO ACBR Referrals: Shad Cotton MD [Primary Care Provider, Nephrology] - In 1 week Problem List Clinical Impression: Anemia Patient/Caregiver Discharge Instructions Additional Instructions: Please follow-up with PCP within 24-48 hours and return immediately if symptoms worsen. Print Language: Mongolian Stand Alone Forms: Patient Portal Info Letter PA/WARP STARTER Supervising Physician PA/WARP STARTER Supervising Physician: Dr. Hoffman
[2025-07-06 00:11] VITALS: BP 122/59; PULSE 70; RESP 15; TEMP 36.7; O2SAT 95
[2025-07-06 01:14] VITALS: BP 130/65; PULSE 79; RESP 20; TEMP 36.6; O2SAT 95
== END 2025-07-06 01:15 | disposition home or self-care (01) ==
PROVIDERS: Physician Assistant; Emergency Provider Emergency Medicine; PCP Internal Medicine
DX: D64.9 Anemia, unspecified (principal); E03.9 Hypothyroidism, unspecified; N18.6 End stage renal disease; Z99.2 Dependence on renal dialysis
CPT/HCPCS: 36415; 85025; 86850; 86900; 86901; 86902; 86921; 86922; 99283; P9016

== ENCOUNTER 2025-07-14 15:57 | Emergency (ER) | payer MEDICARE, MEDICAID, SELFPAY ==
[2025-07-14 15:57] VITALS: BMI 35.1
[2025-07-14 16:32] VITALS: BP 105/60; PULSE 78; RESP 18; TEMP 36.9; O2SAT 97
--- NOTE | 2025-07-14 16:36 | PD.EDRME ---
Rapid Medical Screening Exam E Arrival date/time: 07/14/25 15:57 60-year-old male with a history of hypertension, end-stage renal disease on dialysis, hypothyroidism, presents to the emergency room with a chief complaint of a low hemoglobin level. Patient states it was at 6.6 before dialysis. I have greeted and performed a focused initial assessment of this patient. A comprehensive ED assessment and evaluation of the patient, analysis of all test results, and completion of the medical decision making process will be conducted by additional ED providers. Chief Complaint: General Adult/Misc Complain Time Seen by Provider: 07/14/25 16:19 Vital signs: Vital Signs Temperature 98.5 F 07/14/25 16:32 Pulse Rate 78 07/14/25 16:32 Respiratory Rate 18 07/14/25 16:32 Blood Pressure 105/60 07/14/25 16:32 Pulse Oximetry (%) 97 07/14/25 16:32 Oxygen Delivery Method Room Air 07/14/25 16:32 Vital signs reviewed by provider: Yes Exam: Pale, weak, fatigued Soft nontender abdomen Clear bilateral lung sounds Clinical Impression: Anemia
[2025-07-14 17:12] LABS: Basophils # (Auto) 0.0 Thou/mm3 (0.0-0.2); Basophils % (Auto) 1 % (0-2.5); Eosinophils # (Auto) 0.1 Thou/mm3 (0.0-0.5); Eosinophils % (Auto) 3 % (0-10); Hematocrit 21.7 % (41.0-53.0); Immature Granulocytes Auto 0.01 Thou/mm3 (0.00-0.00); Lymphocytes # (Auto) 1.0 Thou/mm3 (1.0-4.8); Lymphocytes % (Auto) 21 % (10-50); Mean Corpuscular HGB Conc 34.1 g/dl (31.0-37.0); Mean Corpuscular Hemoglobin 33.5 pg (25.0-35.0); Mean Corpuscular Volume 98 fL (80-100); Monocytes # (Auto) 0.4 Thou/mm3 (0.0-0.8); Monocytes % (Auto) 8 % (0-12); Neutrophils # (Auto) 3.1 Thou/mm3 (1.8-7.7); Neutrophils % (Auto) 67 % (37-80); Nucleated Red Blood Cell # 0.00 Thou/mm3 (0.00-0.00); Nucleated Red Blood Cell % 0 /100 WBC (0); RDW Standard Deviation 62.1 fL (35.1-43.9); Red Blood Count 2.21 Miln/mm3 (4.50-5.90); White Blood Count 4.7 Thou/mm3 (3.8-10.6)
[2025-07-14 17:23] LABS: INR 1.2 (0.9-1.3); Partial Thromboplastin Time 33.8 Seconds (22.0-36.0); Prothrombin Time 12.4 Seconds (9.0-12.2)
[2025-07-14 17:36] LABS: Hemoglobin 7.4 g/dL (13.5-16.0); Platelet Count 74 Thou/mm3 (140-440)
[2025-07-14 17:37] LABS: Alanine Aminotransferase 10 U/L (10-49); Albumin, Serum 4.3 gm/dL (3.5-5.0); Albumin/Globulin Ratio 1.1 (1.2-2.2); Alkaline Phosphatase 121 U/L (46-116); Anion Gap 10 (7-16); Aspartate Amino Transferase 18 U/L (0-34); BUN/Creatinine Ratio 6 Ratio (12-20); Bilirubin,Total 0.6 mg/dL (0.3-1.2); Blood Urea Nitrogen 17 mg/dL (9-23); Calcium 9.0 mg/dL (8.3-10.6); Calcium (Corrected) 9.0 mg/dL (8.5-10.1); Carbon Dioxide 33.8 mMol/L (20.0-31.0); Chloride 95 mMol/L (98-107); Creatinine (Component) 2.8 mg/dL (0.6-1.3); Estimated Creatinine Clearance 39.7 mL/min (>60); Globulin 3.8 gm/dL (2.3-3.5); Glucose 87 mg/dL (74-106); Osmolality,Calculated 278 (275-295); Potassium 3.5 mMol/L (3.4-5.1); Slide Review Platelets confirmed; Sodium 139 mMol/L (136-145); Total Protein 8.1 gm/dL (5.7-8.2); eGFR 25 See Note
[2025-07-14 21:47] VITALS: BP 98/59; PULSE 73; RESP 16; TEMP 36.6; O2SAT 96
[2025-07-14 22:53] VITALS: BP 117/62; PULSE 67; RESP 19; TEMP 36.6; O2SAT 100
[2025-07-14 23:09] VITALS: BP 118/60; PULSE 69; RESP 19; TEMP 36.5; O2SAT 100
[2025-07-14 23:24] VITALS: BP 121/68; PULSE 68; RESP 19; TEMP 36.5; O2SAT 100
[2025-07-14 23:51] VITALS: BP 121/68; PULSE 86; RESP 19; O2SAT 96
[2025-07-15 01:29] VITALS: BP 126/63; PULSE 63; RESP 18; TEMP 36.6; O2SAT 98
[2025-07-15 02:05] VITALS: BP 122/56; PULSE 67; RESP 17; TEMP 36.6; O2SAT 100
[2025-07-15 04:25] VITALS: BP 118/61; PULSE 85; RESP 19; TEMP 36.6; O2SAT 95
--- NOTE | 2025-07-15 05:20 | PD.EDADULT ---
ED General RME/HPI General Chief complaint: General Adult/Misc Complain Stated complaint: NEED BLOOD Time Seen by Provider: 07/14/25 16:19 Arrival date/time: 07/14/25 15:57 RME / HPI RME / HPI narrative: 07/14/25 15:57 60-year-old male with a history of hypertension, end-stage renal disease on dialysis, hypothyroidism, presents to the emergency room with a chief complaint of a low hemoglobin level. Patient states it was at 6.6 before dialysis. I have greeted and performed a focused initial assessment of this patient. A comprehensive ED assessment and evaluation of the patient, analysis of all test results, and completion of the medical decision making process will be conducted by additional ED providers. DR. DENNIS MAIN ED EVALUATION: Patient Hx of ESRD on dialysis who is dialyzed MWF now referred by PMD with reported hemoglobin of 6.4, patient does report mild generalized weakness and fatigue. Denies nausea, vomiting, fever, and diarrhea. No reported melena or grossly bloody stools. PMH: Anemia of chronic disease, ESRD, Chronic Thrombocytopenia, and Chronic BL Venous Insufficiency, Prior UTi PSH: AV fistula LUE Allergies: Adhesive Tape Social: Non-smoker, non-drinker Exam: Pale, weak, fatigued Soft nontender abdomen Clear bilateral lung sounds Impression: Anemia Related Data Home Medications ?Medication ?Instructions ?Recorded ?Confirmed diphenhydramine HCl 25 mg capsule 25 mg PO TID PRN Itching 08/20/22 04/05/25 (Benadryl) vitamin B comp no.3-folic acid 1 1 tab PO QDAY 08/20/22 04/05/25 mg-vit C 60 mg-biotin 300 mcg tablet (Mere-[facility] Rx) sucroferric oxyhydroxide 500 mg 500 mg PO QID 10/03/22 04/05/25 chewable tablet (Velphoro) carvedilol 12.5 mg tablet 12.5 mg PO BID 08/04/23 04/05/25 Held on 04/11/25. Instructions: Resume on 04/11/25. Hold until you see your PCP furosemide 40 mg tablet 40 mg PO QDAY 08/04/23 04/05/25 Held on 04/11/25. Instructions: Resume on 04/11/25. Hold until you see your PCP levothyroxine 112 mcg tablet 112 mcg PO ACBR 02/10/25 04/05/25 Previous Rx's ?Medication ?Instructions ?Recorded midodrine 5 mg tablet 5 mg PO TID #90 tabs 04/11/25 Allergies Allergy/AdvReac Type Severity Reaction Status Date / Time adhesive tape Allergy Severe Rash Verified 07/05/25 15:43 vancomycin AdvReac Severe Rash Verified 07/05/25 15:43 Review of Systems Review of Systems Systems Reviewed: All systems reviewed, normal except as documented Past Medical History Past Medical History NEUROLOGIC: Positive Neurological Disorders and Peripheral Neuropathy CARDIAC: Positive Cardiac Arrhythmia RESPIRATORY: Positive Sleep Apnea GASTROINTESTINAL: Positive Gastrointestinal Disorders, Gastrointestinal Bleed, Ulcer and Obesity GENITOURINARY: Positive Genitourinary Disorders, Renal Disease and Dialysis ENDOCRINE: Positive Endocrine Disorders, Hypoglycemia and Hypothyroidism HEMATOLOGIC: Positive Blood Disorders and Anemia PSYCHO/SOCIAL: Positive Depression OTHER HISTORY: Positive Blood Transfusions and Chicken Pox Family History FAMILY HISTORY: Positive Family Psychiatric Problems and Family Respiratory Disorders Surgical History SURGICAL: Positive Vascular Surgery and Tonsillectomy Social History SMOKING STATUS: Former smoker ED Exam Narrative Physical exam: GEN. APPEARANCE: The patient is alert awake oriented X-3 under no distress, lying down comfortably, does not look ill/toxic, elaine appearance. Patient has good eye contact. Patient is cooperative. VITALS: All vitals were reviewed and the pulse ox is 95%, which is normal according to my interpretation HEENT: Normocephalic, atraumatic and nontender. Pupils are equal and reactive. Oral mucosa is moist. NECK: Supple, nontender, no meningismus, no JVD. There is no thyromegaly and no lymphadenopathy. CHEST: Nontender on palpation no deformity and no crepitus. CARDIOVASCULAR: Heart regular rhythm, 3/6 systolic murmur heard at left lower external border with radiation to carotid.r or gallop rub or extra beats. LUNGS: Clear to auscultation bilaterally with symmetrical chest rise. No laboring tachypnea or wheezing. No intercostal subcostal retraction. No rales and no rhonchi. ABDOMEN: Soft, flat, nontender to palpation, no guarding or rebound tenderness. There are no abnormal masses palpated. No pulsatile masses or bruits. Active and normal bowel sounds. EXTREMITIES:.Normal inspection and palpation. 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 No cyanosis. Patient is able to move all 4 extremities well SKIN: Warm and dry, no rashes noted. MUSCULOSKELETAL: No lumbar or midline bony tenderness. There is no CVA tenderness. No paraspinal muscle spasm or tenderness. NEURO: Cranial nerves II through XII grossly intact. There are no focal neurologic deficits noted. GCS is 15 PSYCHIATRIC: Patient is in normal mood and affect, cooperative. LYMPHATICS: No major lymphadenopathy noted. Course Quality Measures none Orders Category Date Time Status Insert IV NOW Care 07/14/25 22:12 Completed Transfuse,blood/blood products NOW Care 07/14/25 19:58 Completed CBC Stat Lab 07/14/25 16:47 Completed CMP [Comprehensive Metabolic Panel] Stat Lab 07/14/25 16:47 Completed PT [Prothrombin Time with INR] Stat Lab 07/14/25 16:47 Completed PTT [Partial Thromboplastin Time] Stat Lab 07/14/25 16:47 Completed Packed Cells [Red Blood Cells] Stat Lab 07/14/25 16:47 Completed Type and Screen Stat Lab 07/14/25 16:47 Completed Vital Signs Vital signs: Vital Signs Temperature 98.5 F 07/14/25 16:32 Pulse Rate 78 07/14/25 16:32 Respiratory Rate 18 07/14/25 16:32 Blood Pressure 105/60 07/14/25 16:32 Pulse Oximetry (%) 97 07/14/25 16:32 Oxygen Delivery Method Room Air 07/14/25 16:32 Critical Care Time Critical Care Time Critical Care Time: Yes Total Critical Care Time (min.): 35 Attestation: The high probability of sudden, clinically significant deterioration in the patient?s condition required the highest level of my preparedness to intervene urgently. The services I provided to this patient were to treat and/or prevent clinically significant deterioration. Services included the following: chart data review, reviewing nursing notes and/or old charts, documentation time, market intelligence consultant collaboration regarding findings and treatment options, medication orders and management, direct patient care, vital sign assessments and ordering, interpreting and reviewing diagnostic studies and lab tests. Aggregate critical care time includes only time during which I was engaged in work directly related to the patient?s care, as described above, whether at bedside or elsewhere in the Emergency Department. It did not include time spent performing other reported procedures or the services of residents, students, nurses or physician assistants. Discharge Plan Plan Patient Disposition: HOME (Self Care) Discharge Disposition comment: Stable Prescriptions/Referrals Prescriptions/Med Rec: No Action furosemide 40 mg Tablet 40 mg PO QDAY carvedilol 12.5 mg Tablet 12.5 mg PO BID Rx Instructions: must administer with a meal/food midodrine 5 mg Tablet 5 mg PO TID Qty: 90 0RF diphenhydramine HCl [Benadryl] 25 mg Capsule 25 mg PO TID PRN (Reason: Itching) Mere-Martín Rx 1-60-300 mg-mg-mcg tablet 1 tab PO QDAY Patient Comments: TAKE 1 TABLET BY MOUTH DAILY Velphoro 500 mg tablet,chewable 500 mg PO QID Patient Comments: CHEW AND SWALLOW 1 TABLET BY MOUTH FOUR TIMES DAILY WITH FOOD levothyroxine 112 mcg tablet 112 mcg PO ACBR Referrals: No Primary/Family,Physician [Primary Care Provider] - In 1 week Problem List Clinical Impression: ESRD on hemodialysis, Anemia Patient/Caregiver Discharge Instructions Discharge Activity: activity as tolerated Diet Instructions: Renal Education Materials: Anemia Additional Instructions: Follow-up with dialysis as scheduled. Return if worsening symptoms. Print Language: Croatian Stand Alone Forms: Bridget Award Info., Patient Portal Info Letter MDM Narrative MDM hospital course (for use when minimal MDM required): Scribe Attestation: Laura Jones am scribing for and in the presence of Dr. Dennis. Provider Notation: Although this document has been carefully reviewed, there may still be some phonetic and other typographical errors. These errors are purely grammatical due to imperfections in the software program and should not be construed in any way to compromise the substance of the patient's medical care during this visit. Patient Hx of ESRD on dialysis who is dialyzed MWF now referred by PMD with reported hemoglobin of 6.4, patient does report mild generalized weakness and fatigue. Denies nausea, vomiting, fever, and diarrhea. Please see PE findings. Laboratory markers including WBC 4.7, hemoglobin 7.4, platelet count of 74. Serum chemistries demonstrate creatinine 2.8 (baseline), patient placed on development assistant. Patient was typed and crossed for 1 unit of packed RBC and observed for an extended period of time. On serial evaluation, patient reports reports overall improvement and considered stable for discharge. Clinical Information Provided by: patient Medical Records reviewed [facility] Meds/Rx considered, not ordered None Labs/Rad/Tests considered, not ordered None EKG EKG not done Labs Labs: interpreted by me and see narrative above Imaging Imaging interpretation: none Medication Administration(s) none Diagnosis Differential Diagnosis ED Complaint MDM: ESRD on hemodialysis, Anemia, BENJY
[2025-07-15 05:32] VITALS: BP 116/69; PULSE 70; RESP 17; TEMP 36.6; O2SAT 99
== END 2025-07-15 05:40 | disposition home or self-care (01) ==
PROVIDERS: Nurse Practitioner Family; Emergency Provider Emergency Medicine
DX: I12.0 Hypertensive chronic kidney disease with stage 5 chronic kidney disease or end stage renal disease (principal); D63.1 Anemia in chronic kidney disease; E03.9 Hypothyroidism, unspecified; I87.2 Venous insufficiency (chronic) (peripheral); N18.6 End stage renal disease; Z85.72 Personal history of non-Hodgkin lymphomas; Z87.440 Personal history of urinary (tract) infections; Z90.89 Acquired absence of other organs; Z99.2 Dependence on renal dialysis
CPT/HCPCS: 36415; 80053; 85025; 85610; 85730; 86850; 86900; 86901; 86902; 86921; 86922; 99282; P9016

== ENCOUNTER 2025-07-30 18:16 | Emergency (ER) | payer MEDICARE, MEDICAID, SELFPAY ==
[2025-07-30 19:46] VITALS: BP 118/54; PULSE 69; PULSE 74; RESP 20; TEMP 36.9; O2SAT 100
[2025-07-30 20:02] LABS: Basophils # (Auto) 0.0 Thou/mm3 (0.0-0.2); Basophils % (Auto) 1 % (0-2.5); Eosinophils # (Auto) 0.2 Thou/mm3 (0.0-0.5); Eosinophils % (Auto) 4 % (0-10); Immature Granulocytes Auto 0.01 Thou/mm3 (0.00-0.00); Lymphocytes # (Auto) 1.3 Thou/mm3 (1.0-4.8); Lymphocytes % (Auto) 26 % (10-50); Mean Corpuscular HGB Conc 33.5 g/dl (31.0-37.0); Mean Corpuscular Hemoglobin 33.0 pg (25.0-35.0); Mean Corpuscular Volume 98 fL (80-100); Monocytes # (Auto) 0.4 Thou/mm3 (0.0-0.8); Monocytes % (Auto) 8 % (0-12); Neutrophils # (Auto) 3.0 Thou/mm3 (1.8-7.7); Neutrophils % (Auto) 61 % (37-80); Nucleated Red Blood Cell # 0.00 Thou/mm3 (0.00-0.00); Nucleated Red Blood Cell % 0 /100 WBC (0); RDW Standard Deviation 61.8 fL (35.1-43.9); Red Blood Count 1.85 Miln/mm3 (4.50-5.90); White Blood Count 4.8 Thou/mm3 (3.8-10.6)
[2025-07-30 20:07] LABS: Platelet Count 69 Thou/mm3 (140-440)
[2025-07-30 20:09] LABS: Hematocrit 18.2 % (41.0-53.0); Hemoglobin 6.1 g/dL (13.5-16.0)
[2025-07-30 20:31] LABS: Alanine Aminotransferase < 7 U/L (10-49); Albumin, Serum 3.8 gm/dL (3.5-5.0); Albumin/Globulin Ratio 1.0 (1.2-2.2); Alkaline Phosphatase 111 U/L (46-116); Anion Gap 12 (7-16); Aspartate Amino Transferase 15 U/L (0-34); BUN/Creatinine Ratio 7 Ratio (12-20); Bilirubin,Total 0.3 mg/dL (0.3-1.2); Blood Urea Nitrogen 50 mg/dL (9-23); Calcium 9.3 mg/dL (8.3-10.6); Calcium (Corrected) 9.5 mg/dL (8.5-10.1); Carbon Dioxide 28.4 mMol/L (20.0-31.0); Chloride 98 mMol/L (98-107); Creatinine (Component) 7.2 mg/dL (0.6-1.3); Globulin 3.8 gm/dL (2.3-3.5); Glucose 79 mg/dL (74-106); Osmolality,Calculated 287 (275-295); Potassium 5.1 mMol/L (3.4-5.1); Sodium 138 mMol/L (136-145); Total Protein 7.6 gm/dL (5.7-8.2); eGFR 8 See Note
--- NOTE | 2025-07-30 20:33 | PD.EDADULT ---
ED General RME/HPI General Chief complaint: Recheck/Abnormal Lab/Rx Stated complaint: NEEDS BLOOD TRANSFUSION Time Seen by Provider: 07/30/25 18:49 Arrival date/time: 07/30/25 18:16 CC: Anemia HPI patient presents to the ER stating that after dialysis on Thursday his lab reported that he had a hemoglobin of 6.1. Patient has generalized weakness but no other specific complaints. Review of the medical record show the patient has been here every 2 to 3 weeks since April for anemia and transfusions. Related Data Home Medications ?Medication ?Instructions ?Recorded ?Confirmed diphenhydramine HCl 25 mg capsule 25 mg PO TID PRN Itching 08/20/22 04/05/25 (Benadryl) vitamin B comp no.3-folic acid 1 1 tab PO QDAY 08/20/22 04/05/25 mg-vit C 60 mg-biotin 300 mcg tablet (Mere[facility] Rx) sucroferric oxyhydroxide 500 mg 500 mg PO QID 10/03/22 04/05/25 chewable tablet (Velphoro) carvedilol 12.5 mg tablet 12.5 mg PO BID 08/04/23 04/05/25 Held on 04/11/25. Instructions: Resume on 04/11/25. Hold until you see your PCP furosemide 40 mg tablet 40 mg PO QDAY 08/04/23 04/05/25 Held on 04/11/25. Instructions: Resume on 04/11/25. Hold until you see your PCP levothyroxine 112 mcg tablet 112 mcg PO ACBR 02/10/25 04/05/25 Previous Rx's ?Medication ?Instructions ?Recorded midodrine 5 mg tablet 5 mg PO TID #90 tabs 04/11/25 Allergies Allergy/AdvReac Type Severity Reaction Status Date / Time adhesive tape Allergy Severe Rash Verified 07/05/25 15:43 vancomycin AdvReac Severe Rash Verified 07/05/25 15:43 Review of Systems Review of Systems Narrative Review of Systems: GEN: No fever, no chills, no weight loss EYES: No discharge, no visual changes, no pain HEENT: No ear pain, no congestion, no sore throat PULM: No shortness of breath, no cough, no congestion CV: No chest pain, no dyspnea on exertion, no palpitations GI: No nausea, no vomiting, no diarrhea, no pain, no constipation : No frequency, no urgency, no dysuria MUSC/SKEL: No joint pain, no back pain SKIN: No rash PSYCH: No hallucinations, no depression HEME/LYMPH: No easy bleeding or bruising tendencies NEURO: No weakness, no headache Past Medical History Past Medical History NEUROLOGIC: Positive Neurological Disorders and Peripheral Neuropathy; Negative Cerebrovascular Accident, Transient Ischemic Attacks (TIA), Dementia, Alzheimer's Disease, Parkinson's Disease, Brain Tumor, Meningitis, Seizures, Epilepsy, Multiple Sclerosis, Cerebral Palsy, Amyotrophic Lateral Sclerosis (ALS/Carmela Gehrig's), Guillain-Chickasaw Syndrome, Spina Bifida, Paralysis, Fermin's Palsy, Subdural Hematoma, Migraine, Head Trauma, Spinal Cord Injury or Traumatic Brain Injury CARDIAC: Positive Cardiac Arrhythmia; Negative Cardiac Disorders, Myocardial Infarction, Atrial Fibrillation, Angina, Heart Murmur, Coronary Artery Disease, Atherosclerotic Heart Disease, Peripheral Vascular Disease, Hypercholesterolemia, Aneurysm, Congestive Heart Failure, Congenital Heart Disease, Valvular Heart Disease, Rheumatic Fever, Cardiomyopathy, Pericarditis, Cellulitis, Deep Vein Thrombosis, Hypertension, Hypotension or Varicose Veins RESPIRATORY: Positive Sleep Apnea; Negative Chronic Obstructive Pulmonary Disease (COPD), Asthma, Bronchitis, Emphysema, Pneumonia, Pulmonary Fibrosis, Cystic Fibrosis, Tuberculosis, Pulmonary Embolism or Pulmonary Edema GASTROINTESTINAL: Positive Gastrointestinal Disorders, Gastrointestinal Bleed, Ulcer and Obesity; Negative Hepatitis, Cirrhosis, Pancreatitis, Celiac Disease, Gall Bladder Disease, Esophageal Varices, Kc's Esophagus, Colitis, Ulcerative Colitis, Diverticulitis, Diverticulosis, Colorectal Cancer, Irritable Bowel, Crohn's Disease, Obstructive Bowel, Hiatal Hernia, Hemorrhoids or Gastroesophageal Reflux Disease GENITOURINARY: Positive Genitourinary Disorders, Renal Disease and Dialysis; Negative Kidney Stones, Polycystic Kidney Disease, Neurogenic Bladder, Inguinal Hernia, Prostate Cancer or Benign Prostatic Hyperplasia REPRODUCTIVE: Negative Breast Cancer, Genital Herpes, Gonorrhea, Syphilis or Testicular Cancer MUSCULOSKELETAL: Negative Musculoskeletal Disorders, Muscular Dystrophy, Myasthenia Gravis, Marfan's Syndrome, Bone Cancer, Arthritis, Rheumatoid Arthritis, Osteoporosis, Degenerative Disk Disease, Gout, Scoliosis, Carpal Tunnel Syndrome, Fibromyalgia, Fractures, Degenerative Joint Disease, Osteomyelitis or Poliovirus ENT: Negative Cataracts, Glaucoma, Blind, Retinal Detachment, Macular Degeneration, Ear Infection, Deafness, Head Trauma or Eye Prosthesis ENDOCRINE: Positive Endocrine Disorders, Hypoglycemia and Hypothyroidism; Negative Diabetes Mellitus Type 1, Diabetes Mellitus Type 2, Óscar's Syndrome, Tripp's Disease, Hyperthyroidism, Parathyroid Disease, Pituitary Disease, Systemic Lupus Erythematosus, Syndrome of Inappropriate Antidiuretic Hormone (SIADH), Adrenal Disease or Graves' Disease HEMATOLOGIC: Positive Blood Disorders and Anemia; Negative Leukemia, Hemophilia, Thalassemia, Sickle Cell Disease or Clotting Problems PSYCHO/SOCIAL: Positive Depression and Anxiety; Negative Psychiatric Problems, Schizophrenia, Recreational Drug Use, Bipolar Disorder, Behavior Problems, Self-Mutilation, Attention Deficit Disorder, Attention Deficit Hyperactivity Disorder, Depression, Post Traumatic Stress Disorder or Eating Disorder OTHER HISTORY: Positive Blood Transfusions and Chicken Pox; Negative Hospitalization, Autoimmune Disease, Down Syndrome, Autism, Developmental Delay, Shingles, Falls, Blood Transfusion Reaction, Anesthesia Reactions, Organ Transplant, Chemotherapy, Radiation Therapy, Hyperbaric Therapy, MRSA, VRSA, Vancomycin-Resistant Enterococci, Human Immunodeficiency Virus (HIV), Measles, Mumps, Rubella (Turkmen Measles), Pertussis, Clostridium Difficile, Cancer, Breast Cancer, Cervical Cancer, Colorectal Cancer, Lung Cancer, Ovarian Cancer, Prostate Cancer or Testicular Cancer Family History FAMILY HISTORY: Positive Family Psychiatric Problems and Family Respiratory Disorders; Negative Family Cardiac Disorders, Family Gastrointestinal Problems, Family Cancer, Family Surgery or Family Anesthesia Reaction Surgical History SURGICAL: Positive Vascular Surgery and Tonsillectomy; Negative Cardiac Surgery, Open Heart Surgery, Coronary Artery Bypass Graft, Valve Replacement, Coronary Stent, Cardiac Catheterization, Pacemaker, Angiogram, Auto Implanted Cardiovert Defib, Carotid Endarterectomy, Endocrine Surgery, Thyroidectomy, Ear Surgery, Tympanostomy Tube, Eye Surgery, Nose Surgery, Oral Surgery, Adenoidectomy, Cochlear Implant, Corneal Transplant, Throat Surgery, Abdominal Surgery, Tracheostomy, Gastric Bypass Surgery, Gastrostomy, Bowel Surgery, Nephrectomy, Transurethral Resection, Joint Replacement, Amputation, Open Reduction Internal Fixation, Arthroscopy, Neurologic Surgery, Brain Shunt, Vasectomy or Organ Transplant Social History SMOKING STATUS: Never smoker SECOND HAND EXPOSURE: No SUBSTANCE USE: does not use Course Course Course Narrative: Patient's clinical presentation including weeping legs, laboratory results were discussed with Dr. Cotton who states 1 unit only, the discharging back for dialysis. I am concerned for fluid overloading the individual with multiple units as he has stopped making urine. Creatinine at 7.2 Dr. Lawson is comfortable discharging him home for dialysis in the morning. Quality Measures none Orders Category Date Time Status Solar Sales Assessor Q4H START 00 Care 11/09/25 19:29 Active Insert IV NOW Care 07/30/25 19:29 Active Transfuse,blood/blood products NOW Care 07/30/25 19:25 Active CBC Stat Lab 07/30/25 19:42 Results CMP [Comprehensive Metabolic Panel] Stat Lab 07/30/25 19:42 Completed Packed Cells [Red Blood Cells] Stat Lab 07/30/25 19:42 Results Type and Screen Stat Lab 07/30/25 19:42 Results Vital Signs Vital signs: Vital Signs Temperature 98.5 F 07/30/25 19:46 Pulse Rate 74 07/30/25 19:46 Respiratory Rate 20 07/30/25 19:46 Blood Pressure 118/54 L 07/30/25 19:46 Pulse Oximetry (%) 100 07/30/25 19:46 Oxygen Delivery Method Room Air 07/30/25 19:46 Discharge Plan Plan Patient Disposition: HOME (Self Care) Patient condition on transfer: Stable Prescriptions/Referrals Prescriptions/Med Rec: No Action furosemide 40 mg Tablet 40 mg PO QDAY carvedilol 12.5 mg Tablet 12.5 mg PO BID Rx Instructions: must administer with a meal/food midodrine 5 mg Tablet 5 mg PO TID Qty: 90 0RF diphenhydramine HCl [Benadryl] 25 mg Capsule 25 mg PO TID PRN (Reason: Itching) Mere-Martín Rx 1-60-300 mg-mg-mcg tablet 1 tab PO QDAY Patient Comments: TAKE 1 TABLET BY MOUTH DAILY Velphoro 500 mg tablet,chewable 500 mg PO QID Patient Comments: CHEW AND SWALLOW 1 TABLET BY MOUTH FOUR TIMES DAILY WITH FOOD levothyroxine 112 mcg tablet 112 mcg PO ACBR Referrals: Shad Cotton MD [Primary Care Provider, Nephrology] - In 1 week Problem List Clinical Impression: Anemia, ESRD on hemodialysis Patient/Caregiver Discharge Instructions Education Materials: Anemia Additional Instructions: Follow-up with dialysis. If there is abrupt onset of shortness of breath or difficulty breathing return to the emergency room meetly for further evaluation. Print Language: Irish Stand Alone Forms: Bridget Award Info., Work/School Release, Patient Portal Info Letter PA/PALS NURSE Supervising Physician PA/PALS NURSE Supervising Physician: Dejan Damian ENP [facility] Clinical Information Provided by: patient Medical Records reviewed [facility] Meds/Rx considered, not ordered None Labs/Rad/Tests considered, not ordered None Chronic Illness/Social Conditions Explain: ESRD dialysis EKG EKG not done Labs Labs: interpreted by me Lab(s) Interpretation(s): CBC shows no leukocytosis H&H of 6.1 and 18.2 respectively platelet count at 69.
[2025-07-30 22:31] VITALS: BP 134/52; PULSE 64; RESP 19; TEMP 36.6; O2SAT 95
[2025-07-30 22:50] VITALS: BP 143/47; PULSE 69; RESP 17; TEMP 36.6; O2SAT 99
[2025-07-30 23:05] VITALS: BP 131/68; PULSE 65; RESP 18; TEMP 36.6; O2SAT 96
[2025-07-30 23:37] LABS: Slide Review Platelets confirmed
[2025-07-31] VITALS: BP 128/63; PULSE 63; RESP 16; TEMP 36.6; O2SAT 98
[2025-07-31 01:16] VITALS: BP 135/60; PULSE 65; RESP 19; TEMP 36.5; O2SAT 99
[2025-07-31 01:35] VITALS: BP 135/60; PULSE 65; RESP 17; TEMP 36.5; O2SAT 99
== END 2025-07-31 01:35 | disposition home or self-care (01) ==
PROVIDERS: Emergency Provider Emergency Medicine; PCP Internal Medicine
DX: D64.9 Anemia, unspecified (principal); N18.6 End stage renal disease; Z90.89 Acquired absence of other organs; Z95.0 Presence of cardiac pacemaker; Z95.1 Presence of aortocoronary bypass graft; Z99.2 Dependence on renal dialysis; Z96.60 Presence of unspecified orthopedic joint implant; Z95.5 Presence of coronary angioplasty implant and graft
CPT/HCPCS: 36415; 80053; 85025; 86850; 86900; 86901; 86902; 86921; 86922; 99283; P9016

== ENCOUNTER 2025-08-04 16:12 | Emergency (ER) | payer MEDICARE, MEDICAID, SELFPAY ==
[2025-08-04] VITALS (11 sets, daily range): BP systolic 114–137; BP diastolic 49–72; PULSE 66–85; RESP 15–20; TEMP 36.4–36.9; O2SAT 92–100; BMI 35.4
--- NOTE | 2025-08-04 16:26 | PD.EDRME ---
Rapid Medical Screening Exam RME Arrival date/time: 08/04/25 16:12 60-year-old male with a history of hypertension chronic anemia was sent to the emergency room by his primary care provider due to a low hemoglobin level I have greeted and performed a focused initial assessment of this patient. A comprehensive ED assessment and evaluation of the patient, analysis of all test results, and completion of the medical decision making process will be conducted by additional ED providers. Chief Complaint: General Adult/Misc Complain Time Seen by Provider: 08/04/25 16:19 Vital signs: Vital Signs Temperature 97.6 F 08/04/25 16:19 Pulse Rate 85 08/04/25 16:19 Respiratory Rate 20 08/04/25 16:19 Blood Pressure 116/63 08/04/25 16:19 Pulse Oximetry (%) 95 08/04/25 16:19 Oxygen Delivery Method Room Air 08/04/25 16:19 Vital signs reviewed by provider: Yes Exam: Strong and regular rhythm Clear bilateral lung sounds Clinical Impression: Anemia/GI bleed
--- NOTE | 2025-08-04 17:05 | PD.EDADULT ---
ED General RME/HPI General Chief complaint: General Adult/Misc Complain Stated complaint: LOW H&H Time Seen by Provider: 08/04/25 16:19 Arrival date/time: 08/04/25 16:12 60-year-old male patient who is known to us, was sent to us by dialysis center for blood transfusion. Patient had dialysis today and yesterday patient's hemoglobin was noted to be 6.9. Patient is denying any vomiting blood no blood in the stool. He complained of chronic generalized body weakness. Nothing new according to him. Last blood transfusion was 5 days ago. RME / HPI RME / HPI narrative: 08/04/25 16:12 60-year-old male with a history of hypertension chronic anemia was sent to the emergency room by his primary care provider due to a low hemoglobin level I have greeted and performed a focused initial assessment of this patient. A comprehensive ED assessment and evaluation of the patient, analysis of all test results, and completion of the medical decision making process will be conducted by additional ED providers. Exam: Strong and regular rhythm Clear bilateral lung sounds Impression: Anemia/GI bleed Related Data Home Medications ?Medication ?Instructions ?Recorded ?Confirmed diphenhydramine HCl 25 mg capsule 25 mg PO TID PRN Itching 08/20/22 04/05/25 (Benadryl) vitamin B comp no.3-folic acid 1 1 tab PO QDAY 08/20/22 04/05/25 mg-vit C 60 mg-biotin 300 mcg tablet ([facility] Rx) sucroferric oxyhydroxide 500 mg 500 mg PO QID 10/03/22 04/05/25 chewable tablet (Velphoro) carvedilol 12.5 mg tablet 12.5 mg PO BID 08/04/23 04/05/25 Held on 04/11/25. Instructions: Resume on 04/11/25. Hold until you see your PCP furosemide 40 mg tablet 40 mg PO QDAY 08/04/23 04/05/25 Held on 04/11/25. Instructions: Resume on 04/11/25. Hold until you see your PCP levothyroxine 112 mcg tablet 112 mcg PO ACBR 02/10/25 04/05/25 Previous Rx's ?Medication ?Instructions ?Recorded midodrine 5 mg tablet 5 mg PO TID #90 tabs 04/11/25 Allergies Allergy/AdvReac Type Severity Reaction Status Date / Time adhesive tape Allergy Severe Rash Verified 07/05/25 15:43 vancomycin AdvReac Severe Rash Verified 07/05/25 15:43 Review of Systems Review of Systems Narrative Review of Systems: Review of system reviewed and within normal limits except mentioned in HPI ED Exam Narrative Physical exam: VITAL SIGNS: Reviewed. GENERAL APPEARANCE: Alert and interactive, follows commands, no acute distress, HEAD AND FACE: Non-traumatic. ENT: PERRL, pale conjunctiva eyelid no trauma, Mucous membrane moist. NECK: Supple, nontender, no nuchal rigidity. CHEST: No tenderness, no crepitus, no paradoxical movement, no retractions. LUNGS: Clear, well ventilated, symmetric, no rales, no wheezing, no ronchi, no stridor, good breath sounds bilaterally. HEART: Regular rate, regular rhythm, no murmur, no gallops. ABDOMEN: Soft, positive bowel sounds, nondistended, no guarding, nontender, no rebound, no masses, RECTAL: Deferred. GENITAL: Deferred. NEUROLOGICAL: Gross motor function intact sensory function intact, Appropriate for age. MUSCULOSKELETAL: low back nontender, full range of motion. EXTREMITIES:+ Bilateral lower extremity +2 edema, nontender, full range of motion. SKIN: Color pink, dry, no rash, no lacerations, no abrasions, no contusions. LYMPHATICS: Deferred. Course Quality Measures none Orders Category Date Time Status Unemployment Specialist Q4H START 00 Care 08/04/25 19:27 Active Insert IV NOW Care 08/04/25 19:27 Active Transfuse,blood/blood products ONCE Care 08/04/25 18:53 Active CBC Stat Lab 08/04/25 16:53 Completed CMP [Comprehensive Metabolic Panel] Stat Lab 08/04/25 16:53 Completed PT [Prothrombin Time with INR] Stat Lab 08/04/25 16:53 Completed PTT [Partial Thromboplastin Time] Stat Lab 08/04/25 16:53 Completed Type and Screen Stat Lab 08/04/25 16:53 Results prbc [Red Blood Cells] Stat Lab 08/04/25 16:53 Results Vital Signs Vital signs: Vital Signs Temperature 97.6 F 08/04/25 16:19 Pulse Rate 85 08/04/25 16:19 Respiratory Rate 20 08/04/25 16:19 Blood Pressure 116/63 08/04/25 16:19 Pulse Oximetry (%) 95 08/04/25 16:19 Oxygen Delivery Method Room Air 08/04/25 16:19 Discharge Plan Plan Patient Disposition: HOME (Self Care) Discharge Disposition comment: Stable Prescriptions/Referrals Prescriptions/Med Rec: No Action furosemide 40 mg Tablet 40 mg PO QDAY carvedilol 12.5 mg Tablet 12.5 mg PO BID Rx Instructions: must administer with a meal/food midodrine 5 mg Tablet 5 mg PO TID Qty: 90 0RF diphenhydramine HCl [Benadryl] 25 mg Capsule 25 mg PO TID PRN (Reason: Itching) [facility] Rx 1-60-300 mg-mg-mcg tablet 1 tab PO QDAY Patient Comments: TAKE 1 TABLET BY MOUTH DAILY Velphoro 500 mg tablet,chewable 500 mg PO QID Patient Comments: CHEW AND SWALLOW 1 TABLET BY MOUTH FOUR TIMES DAILY WITH FOOD levothyroxine 112 mcg tablet 112 mcg PO ACBR Referrals: Shad Cotton MD [Primary Care Provider, Nephrology] - In 1 week Problem List Clinical Impression: ESRD on hemodialysis, Anemia Patient/Caregiver Discharge Instructions Discharge Activity: activity as tolerated Education Materials: Anemia Additional Instructions: Thank you for the opportunity for serving you today. You are stable for discharged . You are advised to: Follow-up with your PCP in 1 to 2 days Return to ED for worsening of symptoms Print Language: Persian Stand Alone Forms: [employer] Award Info., Patient Portal Info Letter PA/HOTEL ATTENDANT Supervising Physician PA/HOTEL ATTENDANT Supervising Physician: MD Jef MDM Narrative MDM hospital course (for use when minimal MDM required): 60-year-old male patient who is known to us, was sent to us by dialysis center for blood transfusion. Patient had dialysis today and yesterday patient's hemoglobin was noted to be 6.9. Patient is denying any vomiting blood no blood in the stool. He complained of chronic generalized body weakness. Nothing new according to him. Last blood transfusion was 5 days ago. Patient's hemoglobin today was noted to be 6.9 hematocrit of 20.2 creatinine 3.2 potassium 3.9 Patient received 2 units of packed RBC, no complication noted. Tolerated the procedure well Diagnosis Differential Diagnosis ED Complaint MDM: Anemia of chronic disease, ESRD, iron deficiency anemia Diagnoses ruled out and/or further discussions: Chronic anemia, anemia of chronic disease
[2025-08-04 17:07] LABS: Basophils # (Auto) 0.0 Thou/mm3 (0.0-0.2); Basophils % (Auto) 1 % (0-2.5); Eosinophils # (Auto) 0.2 Thou/mm3 (0.0-0.5); Eosinophils % (Auto) 4 % (0-10); Hematocrit 20.2 % (41.0-53.0); Immature Granulocytes Auto 0.02 Thou/mm3 (0.00-0.00); Lymphocytes # (Auto) 0.8 Thou/mm3 (1.0-4.8); Lymphocytes % (Auto) 16 % (10-50); Mean Corpuscular HGB Conc 34.2 g/dl (31.0-37.0); Mean Corpuscular Hemoglobin 33.3 pg (25.0-35.0); Mean Corpuscular Volume 98 fL (80-100); Monocytes # (Auto) 0.2 Thou/mm3 (0.0-0.8); Monocytes % (Auto) 4 % (0-12); Neutrophils # (Auto) 3.7 Thou/mm3 (1.8-7.7); Neutrophils % (Auto) 76 % (37-80); Nucleated Red Blood Cell # 0.00 Thou/mm3 (0.00-0.00); Nucleated Red Blood Cell % 0 /100 WBC (0); Platelet Count 81 Thou/mm3 (140-440); RDW Standard Deviation 59.9 fL (35.1-43.9); Red Blood Count 2.07 Miln/mm3 (4.50-5.90); White Blood Count 5.0 Thou/mm3 (3.8-10.6)
[2025-08-04 17:24] LABS: Hemoglobin 6.9 g/dL (13.5-16.0)
[2025-08-04 17:32] LABS: Alanine Aminotransferase 7 U/L (10-49); Albumin, Serum 3.9 gm/dL (3.5-5.0); Albumin/Globulin Ratio 1.1 (1.2-2.2); Alkaline Phosphatase 122 U/L (46-116); Anion Gap 9 (7-16); Aspartate Amino Transferase 15 U/L (0-34); BUN/Creatinine Ratio 5 Ratio (12-20); Bilirubin,Total 0.4 mg/dL (0.3-1.2); Blood Urea Nitrogen 16 mg/dL (9-23); Calcium 9.1 mg/dL (8.3-10.6); Calcium (Corrected) 9.2 mg/dL (8.5-10.1); Carbon Dioxide 33.3 mMol/L (20.0-31.0); Chloride 99 mMol/L (98-107); Creatinine (Component) 3.2 mg/dL (0.6-1.3); Estimated Creatinine Clearance 34.9 mL/min (>60); Globulin 3.6 gm/dL (2.3-3.5); Glucose 123 mg/dL (74-106); Osmolality,Calculated 283 (275-295); Potassium 3.9 mMol/L (3.4-5.1); Sodium 141 mMol/L (136-145); Total Protein 7.5 gm/dL (5.7-8.2); eGFR 21 See Note
[2025-08-04 17:41] LABS: INR 1.1 (0.9-1.3); Partial Thromboplastin Time 32.2 Seconds (22.0-36.0); Prothrombin Time 12.1 Seconds (9.0-12.2)
[2025-08-05 01:22] VITALS: BP 124/51; PULSE 65; RESP 19; TEMP 37.1; O2SAT 92
[2025-08-05 02:02] VITALS: BP 116/54; PULSE 67; RESP 16; TEMP 36.6; O2SAT 96
== END 2025-08-05 03:09 | disposition home or self-care (01) ==
PROVIDERS: Nurse Practitioner Family; Emergency Provider Family Medicine; PCP Internal Medicine
DX: D64.9 Anemia, unspecified (principal); I12.0 Hypertensive chronic kidney disease with stage 5 chronic kidney disease or end stage renal disease; N18.6 End stage renal disease; Z99.2 Dependence on renal dialysis
CPT/HCPCS: 36415; 80053; 85025; 85610; 85730; 86850; 86900; 86901; 86902; 86921; 86922; 99283; P9016

== ENCOUNTER 2025-08-27 18:36 | Emergency (ER) | payer MEDICARE, MEDICAID, SELFPAY ==
[2025-08-27] VITALS (11 sets, daily range): BP systolic 118–136; BP diastolic 67–87; PULSE 64–86; RESP 18–20; TEMP 36.3–36.6; O2SAT 88–97
--- NOTE | 2025-08-27 19:03 | PD.EDRME ---
Rapid Medical Screening Exam RME Arrival date/time: 08/27/25 18:36 This is a case of 60 year old male came in for posisble blood trasfusion hx of esrd on HD chronic anemia which require blood transfusion Chief Complaint: General Adult/Misc Complain Time Seen by Provider: 08/27/25 18:43 Vital signs: Vital Signs Temperature 97.8 F 08/27/25 18:53 Pulse Rate 86 08/27/25 18:53 Respiratory Rate 20 08/27/25 18:53 Blood Pressure 126/68 08/27/25 18:53 Pulse Oximetry (%) 95 08/27/25 18:53 Oxygen Delivery Method Room Air 08/27/25 18:53 Exam: patient is pale awwake alert mild distress Clinical Impression: anemia
[2025-08-27 19:20] LABS: Basophils # (Auto) 0.0 Thou/mm3 (0.0-0.2); Basophils % (Auto) 0 % (0-2.5); Eosinophils # (Auto) 0.2 Thou/mm3 (0.0-0.5); Eosinophils % (Auto) 3 % (0-10); Immature Granulocytes Auto 0.02 Thou/mm3 (0.00-0.00); Lymphocytes # (Auto) 0.9 Thou/mm3 (1.0-4.8); Lymphocytes % (Auto) 15 % (10-50); Mean Corpuscular HGB Conc 33.3 g/dl (31.0-37.0); Mean Corpuscular Hemoglobin 33.3 pg (25.0-35.0); Mean Corpuscular Volume 100 fL (80-100); Monocytes # (Auto) 0.3 Thou/mm3 (0.0-0.8); Monocytes % (Auto) 5 % (0-12); Neutrophils # (Auto) 4.3 Thou/mm3 (1.8-7.7); Neutrophils % (Auto) 76 % (37-80); Nucleated Red Blood Cell # 0.00 Thou/mm3 (0.00-0.00); Nucleated Red Blood Cell % 0 /100 WBC (0); Platelet Count 99 Thou/mm3 (140-440); RDW Standard Deviation 63.9 fL (35.1-43.9); Red Blood Count 1.92 Miln/mm3 (4.50-5.90); White Blood Count 5.6 Thou/mm3 (3.8-10.6)
--- NOTE | 2025-08-27 19:20 | PD.EDADULT ---
ED General RME/HPI General Chief complaint: General Adult/Misc Complain Stated complaint: NEEDS BLOOD TRANSFUSION Time Seen by Provider: 08/27/25 18:43 Arrival date/time: 08/27/25 18:36 RME / HPI RME / HPI narrative: 08/27/25 18:36 This is a case of 60 year old male came in for posisble blood trasfusion hx of esrd on HD chronic anemia which require blood transfusion ------- Dr. Roberson?s Main ED Evaluation: 60yo male with history of ESRD on HD (M/W/F), chronic recurrent anemia who had reportedly been notified that he had become anemic with Hgb on 6.8 on previous Thursday. Dialysis was held this previous Thursday and patient presenting with request of blood transfusion. Reports mild fatigue, but denies chest pain, shortness of breath, lightheadedness, dizziness, or near syncope. Reports generalized fluid retention, but endorses he has dialysis tomorrow morning. Related Data Home Medications ?Medication ?Instructions ?Recorded ?Confirmed diphenhydramine HCl 25 mg capsule 25 mg PO TID PRN Itching 08/20/22 04/05/25 (Benadryl) vitamin B comp no.3-folic acid 1 1 tab PO QDAY 08/20/22 04/05/25 mg-vit C 60 mg-biotin 300 mcg tablet ([facility] Rx) sucroferric oxyhydroxide 500 mg 500 mg PO QID 10/03/22 04/05/25 chewable tablet (Velphoro) carvedilol 12.5 mg tablet 12.5 mg PO BID 08/04/23 04/05/25 Held on 04/11/25. Instructions: Resume on 04/11/25. Hold until you see your PCP furosemide 40 mg tablet 40 mg PO QDAY 08/04/23 04/05/25 Held on 04/11/25. Instructions: Resume on 04/11/25. Hold until you see your PCP levothyroxine 112 mcg tablet 112 mcg PO ACBR 02/10/25 04/05/25 Previous Rx's ?Medication ?Instructions ?Recorded midodrine 5 mg tablet 5 mg PO TID #90 tabs 04/11/25 Allergies Allergy/AdvReac Type Severity Reaction Status Date / Time adhesive tape Allergy Severe Rash Verified 08/27/25 18:37 vancomycin AdvReac Severe Rash Verified 08/27/25 18:37 Review of Systems Review of Systems Systems Reviewed: All systems reviewed, normal except as documented ED Exam Narrative Physical exam: GENERAL APPEARANCE: alert and oriented x 4, chronically-ill appearing, no acute distress VITALS: All vitals were reviewed and the pulse ox is 95% on room air, which is normal according to my interpretation. HEENT: Normocephalic, atraumatic; pupils equal, round, reactive to light; EOMI; mucous membranes pink, moist; oropharynx clear NECK: Supple LUNGS: CTABL; no wheezes, no rales, no rhonchi HEART: Regular rate, regular rhythm; 3-4/6 systolic murmur at the left lower sternal border that radiates to the carotids ABDOMEN: mildly distended; normal BS; soft, no tenderness, no guarding, no rebound; no masses, no organomegaly, no hernia BACK: no CVA tenderness EXTREMITIES: atraumatic; 2+ pitting edema to the BLE NEUROLOGIC: awake; alert and oriented x4; cranial nerves II-XII grossly intact; no focal sensory or motor deficits PSYCHIATRIC: appropriate mood and affect SKIN: warm, dry, normal color; no rashes Course Quality Measures none Orders Category Date Time Status Continuous Pulse Oximetry Care 08/27/25 19:31 Active Obtain Written Consent For: NOW Care 08/27/25 19:31 Active Transfuse,blood/blood products NOW Care 08/27/25 19:30 Active Vital Signs, Non-Routine Q30M Care 08/27/25 19:45 Ordered XR chest 1V portable Stat Exams 08/28/25 00:47 Stop Req Antibody Identification Stat Lab 08/27/25 19:10 Completed CBC Stat Lab 08/27/25 19:10 Completed CMP [Comprehensive Metabolic Panel] Stat Lab 08/27/25 19:10 Completed Packed Cells [Red Blood Cells] Stat Lab 08/27/25 19:10 Completed Partial Thromboplastin Time Stat Lab 08/27/25 19:10 Completed Path Review Blood Smear Stat Lab 08/27/25 19:10 Completed Prothrombin Time with INR Stat Lab 08/27/25 19:10 Completed Type and Screen Stat Lab 08/27/25 19:10 Completed Acetaminophen Tab [Tylenol Tab] Med 08/27/25 19:31 Discontinued 650 mg PO X1 ONE DiphenhydrAMINE INJ [Benadryl Inj] Med 08/28/25 00:47 Discontinued 25 mg IVP X1 ONE DiphenhydrAMINE [Benadryl] Med 08/27/25 19:31 Discontinued 25 mg PO X1 ONE Furosemide Inj [Lasix Inj] Med 08/27/25 19:30 Discontinued 20 mg IVP X1 ONE Vital Signs Vital signs: Vital Signs Temperature 97.8 F 08/27/25 18:53 Pulse Rate 86 08/27/25 18:53 Respiratory Rate 20 08/27/25 18:53 Blood Pressure 126/68 08/27/25 18:53 Pulse Oximetry (%) 95 08/27/25 18:53 Oxygen Delivery Method Room Air 08/27/25 18:53 Critical Care Time Critical Care Time Critical Care Time: Yes Total Critical Care Time (min.): 35 Attestation: The high probability of sudden, clinically significant deterioration in the patient?s condition required the highest level of my preparedness to intervene urgently. The services I provided to this patient were to treat and/or prevent clinically significant deterioration. Services included the following: chart data review, reviewing nursing notes and/or old charts, documentation time, citrix consultant collaboration regarding findings and treatment options, medication orders and management, direct patient care, vital sign assessments and ordering, interpreting and reviewing diagnostic studies and lab tests. Aggregate critical care time includes only time during which I was engaged in work directly related to the patient?s care, as described above, whether at bedside or elsewhere in the Emergency Department. It did not include time spent performing other reported procedures or the services of residents, students, nurses or physician assistants. Discharge Plan Plan Patient Disposition: HOME (Self Care) Discharge Disposition comment: Stable Prescriptions/Referrals Prescriptions/Med Rec: No Action furosemide 40 mg Tablet 40 mg PO QDAY carvedilol 12.5 mg Tablet 12.5 mg PO BID Rx Instructions: must administer with a meal/food midodrine 5 mg Tablet 5 mg PO TID Qty: 90 0RF diphenhydramine HCl [Benadryl] 25 mg Capsule 25 mg PO TID PRN (Reason: Itching) [facility] Rx 1-60-300 mg-mg-mcg tablet 1 tab PO QDAY Patient Comments: TAKE 1 TABLET BY MOUTH DAILY Velphoro 500 mg tablet,chewable 500 mg PO QID Patient Comments: CHEW AND SWALLOW 1 TABLET BY MOUTH FOUR TIMES DAILY WITH FOOD levothyroxine 112 mcg tablet 112 mcg PO ACBR Referrals: No Primary/Family,Physician [Primary Care Provider] - In 1 week Problem List Clinical Impression: Anemia, ESRD on hemodialysis Impression comment: Anemia of chronic disease/end-stage renal disease Patient/Caregiver Discharge Instructions Discharge Activity: activity as tolerated Education Materials: Anemia and Kidney Disease Additional Instructions: Follow-up with dialysis this a.m. as anticipated. Return for fever increasing fatigue lightheadedness chest pain/shortness of breath or worsening illness. Print Language: Botswanan Stand Alone Forms: [employer] Award Info., Patient Portal Info Letter MDM Narrative MDM hospital course (for use when minimal MDM required): Scribe Attestation: 08/27/25 - Lelo Jones am scribing for and in the presence of Dr. Roberson. 60yo male with history of ESRD on HD (M/W/F), chronic recurrent anemia who had reportedly been notified that he had become anemic with Hgb on 6.8 on previous Thursday. Dialysis was held this previous Thursday and patient presenting with request of blood transfusion. Please see PE findings. Hgb at 6.4. Patient received IV Lasix followed by Benadryl and Tylenol and was transfused 2U PRBCs under my direct supervision. No untold reaction over the course of 6 hours. Patient was discharged without incident. Dx: chronic anemia, history of ESRD Clinical Information Provided by: patient Medical Records reviewed [facility] (Per chart review, patient was seen here on 08/04/25 for anemia.) Meds/Rx considered, not ordered None Labs/Rad/Tests considered, not ordered None Chronic Illness/Social Conditions Explain: Hx anemia of chronic disease, ESRD Labs Labs: interpreted by me Imaging Imaging interpretation: none Medication Administration(s) Medication Administration History Discontinued Medications Acetaminophen (Acetaminophen 325 Mg Tablet) 650 mg PO X1 ONE Stop: 08/27/25 19:32 Last Admin: 08/27/25 20:28 Dose: 650 mg Documented By: CAROLYN Diphenhydramine HCl (Diphenhydramine 25 Mg Capsule) 25 mg PO X1 ONE Stop: 08/27/25 19:32 Last Admin: 08/27/25 20:28 Dose: 25 mg Documented By: CAROLYN Diphenhydramine HCl (Diphenhydramine Inj 50 Mg/Ml Vial) 25 mg IVP X1 ONE Stop: 08/28/25 00:48 Furosemide (Furosemide Inj 10 Mg/Ml 4ml Vial) 20 mg IVP X1 ONE Stop: 08/27/25 19:31 Last Admin: 08/27/25 21:46 Dose: 20 mg Documented By: CAROLYN 2U PRBCs Diagnosis Differential Diagnosis ED Complaint MDM: acute on chronic anemia, dehydration, electrolyte abnormality
[2025-08-27 19:30] LABS: Hematocrit 19.2 % (41.0-53.0); Hemoglobin 6.4 g/dL (13.5-16.0)
[2025-08-27 19:31] LABS: INR 1.2 (0.9-1.3); Partial Thromboplastin Time 32.2 Seconds (22.0-36.0); Prothrombin Time 12.4 Seconds (9.0-12.2)
[2025-08-27 19:33] LABS: Alanine Aminotransferase < 7 U/L (10-49); Albumin, Serum 3.8 gm/dL (3.5-5.0); Albumin/Globulin Ratio 0.9 (1.2-2.2); Alkaline Phosphatase 90 U/L (46-116); Anion Gap 14 (7-16); Aspartate Amino Transferase 12 U/L (0-34); BUN/Creatinine Ratio 7 Ratio (12-20); Bilirubin,Total 0.2 mg/dL (0.3-1.2); Blood Urea Nitrogen 65 mg/dL (9-23); Calcium 9.7 mg/dL (8.3-10.6); Calcium (Corrected) 9.9 mg/dL (8.5-10.1); Carbon Dioxide 25.3 mMol/L (20.0-31.0); Chloride 99 mMol/L (98-107); Creatinine (Component) 9.5 mg/dL (0.6-1.3); Globulin 4.3 gm/dL (2.3-3.5); Glucose 110 mg/dL (74-106); Osmolality,Calculated 295 (275-295); Potassium 5.4 mMol/L (3.4-5.1); Sodium 138 mMol/L (136-145); Total Protein 8.1 gm/dL (5.7-8.2); eGFR 6 See Note
[2025-08-27] MEDS: ACETAMINOPHEN 325 MG TABLET 650 MG PO (20:28)
[2025-08-27] MEDS: FUROSEMIDE INJ 10 MG/ML 4ML VIAL 20 MG IVP (21:46)
[2025-08-27 22:57] LABS: Path Review Blood Smear Sent to Pathologist
[2025-08-28 00:02] VITALS: BP 128/48; PULSE 70; RESP 18; TEMP 36.6; O2SAT 97
[2025-08-28 00:45] VITALS: BP 128/48; PULSE 74; RESP 18; TEMP 36.6; O2SAT 97
[2025-08-28 01:03] VITALS: BP 122/63; PULSE 71; RESP 18; TEMP 36.6; O2SAT 98
[2025-08-28 01:18] VITALS: BP 128/79; PULSE 79; RESP 18; TEMP 36.6
--- NOTE | 2025-08-28 02:30 | PC.NURSE ---
2nd unit of blood in progress.tolerating blood transfusion. pt asleep, arouses easily.
[2025-08-28 03:06] VITALS: BP 135/67; RESP 18; TEMP 36.8; O2SAT 98
== END 2025-08-28 03:08 | disposition home or self-care (01) ==
PROVIDERS: Nurse Practitioner Family; Emergency Provider Emergency Medicine
DX: N18.6 End stage renal disease (principal); D63.1 Anemia in chronic kidney disease; Z99.2 Dependence on renal dialysis
CPT/HCPCS: 36415; 36430; 80053; 85025; 85610; 85730; 86850; 86870; 86900; 86901; 86902; 86921; 86922; 96374; 96375; 99283; J1200; J1938; P9016; A9270

== ENCOUNTER 2025-09-07 17:26 | Emergency (ER) | payer MEDICARE, MEDICAID, SELFPAY ==
[2025-09-07 17:49] VITALS: BP 101/54; PULSE 81; RESP 18; TEMP 36.6; O2SAT 100; BMI 35.4
--- NOTE | 2025-09-07 18:08 | PD.EDRECHK ---
ED Recheck Abnl Lab Rx-RME/HPI General Chief Complaint: Recheck/Abnormal Lab/Rx Stated Complaint: NEEDS BLOOD TRANSFUSTION Time Seen by Provider: 09/07/25 17:29 Arrival date/time: 09/07/25 17:26 60-year-old male patient with significant history of chronic anemia, ESRD, on hemodialysis, was sent to us by dialysis center for blood transfusion. Yesterday patient had a hemodialysis and was noted to have a hemoglobin of 6.5. Patient is known to this emergency room having blood transfusion almost every 10 days. Last transfusion was 10 days ago. No vomiting no blood in the stool no change in the color of the stool. Related Data Home Medications ?Medication ?Instructions ?Recorded ?Confirmed diphenhydramine HCl 25 mg capsule 25 mg PO TID PRN Itching 08/20/22 04/05/25 (Benadryl) vitamin B comp no.3-folic acid 1 1 tab PO QDAY 08/20/22 04/05/25 mg-vit C 60 mg-biotin 300 mcg tablet ([facility] Rx) sucroferric oxyhydroxide 500 mg 500 mg PO QID 10/03/22 04/05/25 chewable tablet (Velphoro) carvedilol 12.5 mg tablet 12.5 mg PO BID 08/04/23 04/05/25 Held on 04/11/25. Instructions: Resume on 04/11/25. Hold until you see your PCP furosemide 40 mg tablet 40 mg PO QDAY 08/04/23 04/05/25 Held on 04/11/25. Instructions: Resume on 04/11/25. Hold until you see your PCP levothyroxine 112 mcg tablet 112 mcg PO ACBR 02/10/25 04/05/25 Previous Rx's ?Medication ?Instructions ?Recorded midodrine 5 mg tablet 5 mg PO TID #90 tabs 04/11/25 Allergies Allergy/AdvReac Type Severity Reaction Status Date / Time adhesive tape Allergy Severe Rash Verified 09/07/25 17:28 vancomycin AdvReac Severe Rash Verified 09/07/25 17:28 Review of Systems Review of Systems Narrative Review of Systems: Review of system reviewed and within normal limits except mentioned in HPI ED Exam Narrative Physical exam: VITAL SIGNS: Reviewed. GENERAL APPEARANCE: Alert and interactive, follows commands, no acute distress, HEAD AND FACE: Non-traumatic. ENT: PERRL, pale conjunctiva, eyelid no trauma, Mucous membrane moist. NECK: Supple, nontender, no nuchal rigidity. CHEST: No tenderness, no crepitus, no paradoxical movement, no retractions. LUNGS: Clear, well ventilated, symmetric, no rales, no wheezing, no ronchi, no stridor, good breath sounds bilaterally. HEART: Regular rate, regular rhythm, no murmur, no gallops. ABDOMEN: Soft, positive bowel sounds, nondistended, no guarding, nontender, no rebound, no masses, RECTAL: Deferred. GENITAL: Deferred. NEUROLOGICAL: Gross motor function intact sensory function intact, Appropriate for age. MUSCULOSKELETAL: low back nontender, full range of motion. EXTREMITIES: Nontender, full range of motion. SKIN: Color pale, dry, no rash, no lacerations, no abrasions, no contusions. LYMPHATICS: Deferred. Course Quality Measures none Orders Category Date Time Status Transfuse,blood/blood products ONCE Care 09/07/25 18:08 Completed CBC [CBC] Stat Lab 09/07/25 18:40 Completed CMP [Comprehensive Metabolic Panel] Stat Lab 09/07/25 18:40 Completed Type and Screen Stat Lab 09/07/25 18:40 Completed prbc [Red Blood Cells] Stat Lab 09/07/25 18:40 Completed Sod Polystyrene Sulfon Susp [Kayexalate Susp] Med 09/07/25 22:49 Discontinued 30 gm PO X1 ONE Vital Signs Vital signs: Vital Signs Temperature 97.8 F 09/07/25 17:49 Pulse Rate 81 09/07/25 17:49 Respiratory Rate 18 09/07/25 17:49 Blood Pressure 101/54 L 09/07/25 17:49 Pulse Oximetry (%) 100 09/07/25 17:49 Oxygen Delivery Method Room Air 09/07/25 17:49 Recheck / Abnormal Lab / Rx MDM Narrative MDM Narrative:: 60-year-old male patient with significant history of chronic anemia, ESRD, on hemodialysis, was sent to us by dialysis center for blood transfusion. Yesterday patient had a hemodialysis and was noted to have a hemoglobin of 6.5. Patient is known to this emergency room having blood transfusion almost every 10 days. Last transfusion was 10 days ago. No vomiting no blood in the stool no change in the color of the stool. Patient hemoglobin was noted to be 6.6, hematocrit of 19.8. Patient potassium was noted to be 5.8. Creatinine 6.5 BUN of 41. Patient received Kayexalate. Patient also was given 2 units of packed RBC. Patient is scheduled for hemodialysis in the morning Patient data External records reviewed:: None Clinical information provided by:: patient Social determinants that could affect healthcare access:: none Patient has the following chronic illnesses:: ESRD, chronic anemia How is presenting disease/condition affected by chronic disease/condition?: exacerbated by Evaluation data The following diagnostics were reviewed and interpreted by me:: lab results Lab and/or radiology exams considered but not ordered:: None Interpretation Summary: See above Medications / Prescriptions Medications or Prescriptions considered but not ordered:: None Medication administrations:: Medication Administration History Discontinued Medications Sodium Polystyrene Sulfonate (Sod Polystyrene Sulfon Susp 15 Gm/60 Ml Btl) 30 gm PO X1 ONE Stop: 09/07/25 22:50 Last Admin: 09/07/25 23:14 Dose: 30 gm Documented By: CAROLYN Ruiz Consultations Consultation(s) initiated? (list below): No Diagnosis Recheck Differential Diagnosis: other (Anemia, ESRD on dialysis, chronic anemia) Most likely diagnosis given after review of the tests above:: Chronic anemia, ESRD on dialysis Admission Indicated Admission indicated?: not indicated Admission Request Was there a request for admission?: No Disposition Plan Disposition Plan: Discharge Discharge Attestation Discharge Attestation: The patient was given an opportunity to ask questions and understood the discharge instructions. Discharge instructions specifically effects, indications for sooner follow up or return to the emergency department, and the expected course of current diagnosis. Patient condition: Stable Discharge Plan Plan Patient Disposition: HOME (Self Care) Discharge Disposition comment: Stable Prescriptions/Referrals Prescriptions/Med Rec: No Action furosemide 40 mg Tablet 40 mg PO QDAY carvedilol 12.5 mg Tablet 12.5 mg PO BID Rx Instructions: must administer with a meal/food midodrine 5 mg Tablet 5 mg PO TID Qty: 90 0RF diphenhydramine HCl [Benadryl] 25 mg Capsule 25 mg PO TID PRN (Reason: Itching) Mere-[facility] Rx 1-60-300 mg-mg-mcg tablet 1 tab PO QDAY Patient Comments: TAKE 1 TABLET BY MOUTH DAILY Velphoro 500 mg tablet,chewable 500 mg PO QID Patient Comments: CHEW AND SWALLOW 1 TABLET BY MOUTH FOUR TIMES DAILY WITH FOOD levothyroxine 112 mcg tablet 112 mcg PO ACBR Referrals: No Primary/Family,Physician [Primary Care Provider] - In 1 week Problem List Clinical Impression: Anemia, ESRD on hemodialysis Patient/Caregiver Discharge Instructions Education Materials: Anemia Additional Instructions: Thank you for the opportunity for serving you today. You are stable for discharged . You are advised to: Follow-up with your PCP in 1 to 2 days Return to ED for worsening of symptoms Print Language: Frisian Stand Alone Forms: Bridget Award Info., Patient Portal Info Letter
[2025-09-07 19:10] LABS: Basophils # (Auto) 0.0 Thou/mm3 (0.0-0.2); Basophils % (Auto) 1 % (0-2.5); Eosinophils # (Auto) 0.1 Thou/mm3 (0.0-0.5); Eosinophils % (Auto) 2 % (0-10); Immature Granulocytes Auto 0.01 Thou/mm3 (0.00-0.00); Lymphocytes # (Auto) 0.9 Thou/mm3 (1.0-4.8); Lymphocytes % (Auto) 22 % (10-50); Mean Corpuscular HGB Conc 33.3 g/dl (31.0-37.0); Mean Corpuscular Hemoglobin 32.8 pg (25.0-35.0); Mean Corpuscular Volume 99 fL (80-100); Monocytes # (Auto) 0.4 Thou/mm3 (0.0-0.8); Monocytes % (Auto) 8 % (0-12); Neutrophils # (Auto) 2.8 Thou/mm3 (1.8-7.7); Neutrophils % (Auto) 66 % (37-80); Nucleated Red Blood Cell # 0.00 Thou/mm3 (0.00-0.00); Nucleated Red Blood Cell % 0 /100 WBC (0); RDW Standard Deviation 62.8 fL (35.1-43.9); Red Blood Count 2.01 Miln/mm3 (4.50-5.90); White Blood Count 4.2 Thou/mm3 (3.8-10.6)
[2025-09-07 19:12] LABS: Platelet Count 63 Thou/mm3 (140-440)
[2025-09-07 19:13] LABS: Hematocrit 19.8 % (41.0-53.0); Hemoglobin 6.6 g/dL (13.5-16.0)
[2025-09-07 19:27] LABS: Slide Review Platelets confirmed
[2025-09-07 19:28] LABS: Alanine Aminotransferase < 7 U/L (10-49); Albumin, Serum 3.5 gm/dL (3.5-5.0); Albumin/Globulin Ratio 0.8 (1.2-2.2); Alkaline Phosphatase 118 U/L (46-116); Anion Gap 11 (7-16); Aspartate Amino Transferase 10 U/L (0-34); BUN/Creatinine Ratio 6 Ratio (12-20); Bilirubin,Total 0.3 mg/dL (0.3-1.2); Blood Urea Nitrogen 41 mg/dL (9-23); Calcium 8.9 mg/dL (8.3-10.6); Calcium (Corrected) 9.3 mg/dL (8.5-10.1); Carbon Dioxide 30.9 mMol/L (20.0-31.0); Chloride 97 mMol/L (98-107); Creatinine (Component) 6.5 mg/dL (0.6-1.3); Estimated Creatinine Clearance 17.2 mL/min (>60); Globulin 4.3 gm/dL (2.3-3.5); Glucose 83 mg/dL (74-106); Osmolality,Calculated 286 (275-295); Potassium 5.8 mMol/L (3.4-5.1); Sodium 139 mMol/L (136-145); Total Protein 7.8 gm/dL (5.7-8.2); eGFR 9 See Note
[2025-09-07 22:34] VITALS: BP 120/78; PULSE 81; RESP 18; TEMP 36.7; O2SAT 97
[2025-09-07 22:52] VITALS: BP 112/64; PULSE 84; RESP 18; TEMP 36.7; O2SAT 99
[2025-09-07 23:07] VITALS: BP 102/64; PULSE 84; RESP 18; TEMP 36.6; O2SAT 98
[2025-09-07] MEDS: SOD POLYSTYRENE SULFON SUSP 15 GM/60 ML BTL 30 GM PO (23:14)
[2025-09-07 23:56] VITALS: BP 108/41; PULSE 65; RESP 16; TEMP 36.4
[2025-09-08 00:50] VITALS: BP 108/64; PULSE 65; RESP 18; TEMP 36.6; O2SAT 99
--- NOTE | 2025-09-08 00:54 | PC.NURSE ---
first unit done. second started. pt tolerating well.
[2025-09-08 01:07] VITALS: BP 114/70; PULSE 84; TEMP 36.6; O2SAT 98
[2025-09-08 01:22] VITALS: BP 120/65; PULSE 80; RESP 18; TEMP 36.6
[2025-09-08 02:28] VITALS: BP 122/43; PULSE 68; RESP 20; TEMP 36.7; O2SAT 99
== END 2025-09-08 03:29 | disposition home or self-care (01) ==
PROVIDERS: Nurse Practitioner Family; Emergency Provider Family Medicine
DX: N18.6 End stage renal disease (principal); D63.1 Anemia in chronic kidney disease; Z99.2 Dependence on renal dialysis
CPT/HCPCS: 36415; 36430; 80053; 85025; 86850; 86900; 86901; 86902; 86921; 86922; 99283; P9016; A9270